=== PATIENT | male | born 1960 | race Caucasian/White ===

== ENCOUNTER 2016-06-12 12:26 | Emergency (ER) | payer BC ==
[~2016-06-12] VITALS: Ht 188 cm; Wt 127.0 kg
--- NOTE | 2016-06-12 12:23 | EMERGENCY ROOM VISIT NOTE ---
History Report prepared by Nemo: Myron Menno Under the Supervision of: Dr. Alonso Gonzalez D.O. First contact with patient: 12:12 Stated Complaint: STROKE ALERT History of Present Illness The patient is a 55 year old male who presents to the Emergency Room via Emergency Medical Services from [facility] in [place] after becoming altered at 1140, 45 minutes prior to arrival. Per EMS the patient's brought him to [facility] with complaints of a massive sudden onset headache and numbness in the right ankle and right calf. Upon arrival to the hospital the patient began to experience difficulty breathing and exhibited a right facial droop. His right pupil was blown. He then became unresponsive and completely flaccid on the right side. In transit to the emergency department at [facility] the patient became combative, but is only able to use the left side. 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 The patient was placed on 6 liters of oxygen and had a respiratory rate of 20-30. His glucose was 98. He has a history of Hypertension and Marijuana use. Source of History: EMS Onset: 45 minutes Position: other (Neuro) Quality: other (right side paralysis, facial droop ) Review of Systems See HPI for pertinent positives & negatives. A total of 10 systems reviewed and were otherwise negative. Past Medical & Surgical Medical Problems: (1) Bronchitis (2) Sciatica Surgical Problems: (1) History of tonsillectomy Family History Cancer Diabetes mellitus Heart disease Kidney disease Social History Smoking Status: Former Smoker Alcohol Use: occasionally Marital Status: Housing Status: lives with significant other Occupation Status: unemployed Current/Historical Medications Scheduled Aspirin (Aspirin Ec), 81 MG PO DAILY Lisinopril (Lisinopril), 1 TAB PO DAILY Allergies Coded Allergies: Hydrocodone (Verified Allergy, Unknown, hives, 06/12/16) Physical Exam Vital Signs Date Time Temp Pulse Resp B/P Pulse Ox O2 Delivery O2 Flow Rate FiO2 06/12/16 14:15 122 16 98/62 100 06/12/16 14:00 122 16 98/62 100 Mechanical Ventilator 100 06/12/16 13:16 117 0 100 06/12/16 13:15 143/102 06/12/16 13:11 115 99 06/12/16 13:09 147/111 06/12/16 13:06 103 4 100 06/12/16 13:01 107 18 92 06/12/16 13:00 100 06/12/16 12:56 147 16 95 06/12/16 12:51 68 35 99 06/12/16 12:49 172/103 06/12/16 12:38 60 16 119/115 92 Non-Rebreather 06/12/16 12:38 61 06/12/16 12:36 192/115 06/12/16 12:33 51 06/12/16 12:30 70 06/12/16 12:30 100 06/12/16 12:28 92 Non-Rebreather Physical Exam GENERAL: Patient arrives with a nasal trumpet in place, he is obtunded and is only moving the left arm and left leg. He is unable to answer questions and does not follow commands. EYES: The patient has a right fixed gaze. With a dilated right pupil, left pupil appears mid-sized and reactive to light. EARS, NOSE, MOUTH AND THROAT: The nose is without any evidence of any deformity. Mucous membranes are moist tongue is midline. Copious emesis in the oropharynx. NECK: The neck is nontender and supple. RESPIRATORY: Lung sounds are diminished throughout with scattered rhonchi. Respirations are shallow and ineffective. CARDIOVASCULAR: Regular rate and rhythm noted there no murmurs rubs or gallops normal S1 normal S2 GASTROINTESTINAL: The abdomen is soft. Bowel sounds are present in all quadrants. Abdomen is nontender PELVIS: The Pelvis is stable. No tenderness to palpation is noted. BACK: No midline tenderness or or step-off noted range of motion in flexion extension as well as rotation no signs of muscle spasm noted MUSCULOSKELETAL/EXTREMITIES: There is no evidence of gross deformity full range of motion is noted in the hips and shoulders SKIN: There is no obvious evidence of any rash. There are no petechiae, pallor or cyanosis noted. NEUROLOGIC: Patient is obtunded and not answering questions. Patient has a GCS score of 7. He withdraws from pain with LUE and brings the left leg into flexion at the hip. The patellar reflexes were 2+ bilaterally. No facial droop was appreciated. Medical Decision & Procedures ER Provider Diagnostic Interpretation: Radiology results as stated below per my review and radiologist interpretation: CT OF THE CERVICAL SPINE CLINICAL HISTORY: Trauma. Neck pain. COMPARISON STUDY: No previous studies for comparison. CT DOSE: TECHNIQUE: CT scan of the cervical spine was performed from the skull base to the thoracic inlet. Images are reviewed in the axial, sagittal, and coronal planes. IV contrast was not administered for this examination. FINDINGS: The visualized portions of the lung apices reveal no evidence of pneumothorax. There is dependent atelectasis. There is apical emphysema. An endotracheal tube tube is visualized. The prevertebral soft tissues are normal. No fractures or subluxations are visualized. There are multilevel degenerative changes. There is a cervical levoscoliosis which may in part be positional. There is spinal stenosis at the C5-6 level. There is right-sided foraminal narrowing the C5-6 level. IMPRESSION: No evidence of acute fracture or traumatic subluxation. Electronically signed by: Hector Tovar M.D. 06/12/2016 12:57 PM Dictated Date/Time: 06/12/2016 12:54 PM CHEST ONE VIEW PORTABLE CLINICAL HISTORY: Stroke RESPIRATORY FAILURE COMPARISON STUDY: 04/27/2015 FINDINGS: There is an endotracheal tube 49 mm above the kimberley. The heart is normal in size. There is mild pulmonary vascular congestion/fluid overload. There is no lobar consolidation. There are no pleural effusions. There is an overlying right cardiac electrode pad[ IMPRESSION: 1. Endotracheal tube 49 mm above the kimberley 2. Mild central pulmonary vascular congestion Electronically signed by: Hector Tovar M.D. 06/12/2016 1:43 PM Dictated Date/Time: 06/12/2016 1:[address] HEAD WITHOUT CONTRAST (CT) CLINICAL HISTORY: Stroke COMPARISON STUDY: No previous studies for comparison. TECHNIQUE: Axial CT of the brain is performed from the vertex to the skull base. IV contrast was not administered for this examination. CT DOSE: 2161.12 mGy.cm FINDINGS: There is a right subdural hematoma with a thickness of 17 mm. There is effacement of the auricle sulci. There is a 16 mm of right to left midline shift. No parenchymal hemorrhage is visualized. No calvarial fractures are visualized. There is no evidence of pathologic ventricular dilatation. There is mucosal thickening involving the maxillary ethmoid and frontal sinuses. IMPRESSION: Acute right-sided subdural hematoma, measuring 17 mm in thickness. There is secondary mass effect with 16 mm of right to left midline shift. Electronically signed by: Hector Tovar M.D. 06/12/2016 12:52 PM Dictated Date/Time: 06/12/2016 12:49 PM Laboratory Results 06/12/16 12:38 Red Blood Count 4.57, Mean Corpuscular Volume 92.3, Mean Corpuscular Hemoglobin 31.7, Mean Corpuscular Hemoglobin Concent 34.4, Mean Platelet Volume 10.3 06/12/16 12:38 Test 06/12/16 12:38 06/12/16 13:02 06/12/16 13:05 06/12/16 13:06 White Blood Count 12.44 K/uL (4.8-10.8) Red Blood Count 4.57 M/uL (4.7-6.1) Hemoglobin 14.5 g/dL (14.0-18.0) Hematocrit 42.2 % (42-52) Mean Corpuscular Volume 92.3 fL (80-100) Mean Corpuscular Hemoglobin 31.7 pg (25-34) Mean Corpuscular Hemoglobin Concent 34.4 g/dl (32-36) Platelet Count 234 K/uL (130-400) Mean Platelet Volume 10.3 fL (7.4-10.4) RDW Standard Deviation 42.8 fL (36.4-46.3) RDW Coefficient of Variation 12.7 % (11.5-14.5) Neutrophils % (Manual) 50.5 % Lymphocytes % (Manual) 34.5 % Monocytes % (Manual) 4.4 % Eosinophils % (Manual) 6.2 % Basophils % (Manual) 3.5 % (0-2) Blast Cells % 0.9 % Neutrophils # (Manual) 6.28 K/uL (1.4-6.5) Total Absolute Neutrophils 6.28 K/uL (1.4-6.5) Lymphocytes # (Manual) 4.29 K/uL (1.2-3.4) Total Absolute Lymphocytes 4.29 K/uL (1.2-3.4) Monocytes # (Manual) 0.55 K/uL (0.11-0.59) Eosinophils # (Manual) 0.77 K/uL (0-0.5) Basophils # (Manual) 0.44 K/uL (0-0.2) Blast Cells # 0.11 K/uL (0-0) Red Blood Cell Morphology Unremarkable Prothrombin Time 10.6 SECONDS (9.0-12.0) Prothromb Time International Ratio 1.0 (0.9-1.1) Activated Partial Thromboplast Time 23.1 SECONDS (21.0-31.0) Partial Thromboplastin Ratio 0.9 Est Creatinine Clear Calc Drug Dose 155.3 ml/min Estimated GFR () 119.2 Estimated GFR (Non- 102.9 BUN/Creatinine Ratio 18.2 (10-20) Calcium Level 8.6 mg/dl (8.5-10.1) Total Bilirubin 0.4 mg/dl (0.2-1) Direct Bilirubin 0.1 mg/dl (0-0.2) Aspartate Amino Transf (AST/SGOT) 42 U/L (15-37) Alanine Aminotransferase (ALT/SGPT) 45 U/L (12-78) Alkaline Phosphatase 52 U/L (45-117) Total Creatine Kinase 254 U/L (39-308) Creatine Kinase MB 4.7 ng/ml (0.5-3.6) Creatine Kinase MB Ratio 1.9 (0-3.0) Troponin I < 0.015 ng/ml (0-0.045) Total Protein 7.4 gm/dl (6.4-8.2) Albumin 4.0 gm/dl (3.4-5.0) Bedside Glucose 177 mg/dl (70-99) Urine Color YELLOW Urine Appearance CLEAR (CLEAR) Urine pH 5.0 (4.5-7.5) Urine Specific Randall 1.017 (1.000-1.030) Urine Protein TRACE (NEG) Urine Glucose (UA) TRACE (NEG) Urine Ketones 1+ (NEG) Urine Occult Blood NEG (NEG) Urine Nitrite NEG (NEG) Urine Bilirubin NEG (NEG) Urine Urobilinogen NEG (NEG) Urine Leukocyte Esterase NEG (NEG) Urine WBC (Auto) 1-5 /hpf (0-5) Urine RBC (Auto) 0-4 /hpf (0-4) Urine Hyaline Casts (Auto) 5-10 /lpf (0-5) Urine Epithelial Cells (Auto) >30 /lpf (0-5) Urine Bacteria (Auto) NEG (NEG) Urine Opiates Screen NEG (NEG) Urine Methadone, Qualitative NEG (NEG) Urine Barbiturates NEG (NEG) Urine Phencyclidine (PCP) Level NEG (NEG) Ur Amphetamine/Methamphetamine NEG (NEG) MDMA (Ecstasy) Screen NEG (NEG) Urine Benzodiazepines Screen NEG (NEG) Urine Cocaine Metabolite NEG (NEG) Urine Marijuana (THC) POS (NEG) Bedside Blood Gas pH (LAB) 7.20 (7.35-7.45) Bedside Blood Gas pCO2 (LAB) 52 mmHg (35-46) Bedside Blood Gas pO2 (LAB) 92 mmHg (80-95) Bedside Blood Gas HCO3 (LAB) 20 meq/L (19-24) Bedside Blood Gas Total CO2 22 mEq/l (24-31) Bedside Blood Gas Base Excess (LAB) -8.0 meq/L (-9-1.8) Bedside Blood Gas O2 Saturation 95.0 % (90-95) Test 06/12/16 13:09 Bedside Hemoglobin 14.6 g/dl (14.0-18.0) Bedside Hematocrit 43 % (42-52) Bedside Sodium 141 mEq/L (135-144) Bedside Potassium 3.3 mEq/L (3.3-5.0) Bedside Chloride 106 mEq/L (101-112) Bedside Total CO2 21 mEq/l (24-31) Anion Gap 19.0 mmol/L (16-25) Bedside Blood Urea Nitrogen 14 mg/dl (7-18) Bedside Creatinine 0.6 mg/dl (0.6-1.3) Bedside Glucose (other) 195 mg/dl (70-99) Bedside Lactic Acid Venous 2.47 mmol/L (0.90-1.70) Bedside Ionized Calcium (Radha) 1.15 mmol/l (1.12-1.32) Laboratory results per my review. Medications Administered Medications (Trade) Dose Ordered Sig/Kinga Route Start Time Stop Time Status Last Admin Dose Admin Sodium Chloride (Nss 1000ml) 1,000 ml @ 50 mls/hr Q20H IV 06/12/16 12:18 06/12/16 14:58 DC 06/12/16 12:18 50 MLS/HR Propofol 1 dose 1 dose STK-MED ONCE IV 06/12/16 12:56 06/12/16 12:57 DC 06/12/16 13:04 1 DOSE Nicardipine HCl/ Sodium Chloride (Cardene Iv/Nss 250ml) 250 ml @ 0 mls/hr Q0M STAT IV 06/12/16 13:05 06/12/16 13:07 DC 06/12/16 13:25 5 MLS/HR Mannitol 100 gm 100 gm NOW STAT IV 06/12/16 13:05 06/12/16 13:07 DC 06/12/16 13:23 100 GM Levetiracetam 2000 mg/Dextrose 270 ml @ 999 mls/hr ONE ONCE IV 06/12/16 13:15 06/12/16 13:31 DC 06/12/16 13:26 999 MLS/HR Desmopressin Acetate/Sodium Chloride (Ddavp Inj/Nss 50ml) 55.5 ml @ 100 mls/hr 1330 IV 06/12/16 13:30 06/12/16 14:58 DC 06/12/16 13:30 100 MLS/HR Sodium Bicarbonate (Sodium Bicarbonate 8.4% Inj) 50 ml STK-MED ONCE IV 06/12/16 13:21 06/12/16 13:22 DC 06/12/16 13:23 50 ML Propofol (Diprivan Iv Emulsion 100ml Vial) 1 dose UD STAT IV 06/12/16 13:36 06/12/16 13:37 DC 06/12/16 13:38 1 DOSE ECG Indication: altered mental status, weakness Rate (beats per minute): 150 Rhythm: other (Wide complex tachycardia) Findings: PVC (frequent) Comparison ECG Date: 04/27/2015 Change: no significant change ED Course 1218: Ordered Sodium Chloride 1000 mL @ 50 mL/hr IV. 1225: The patient was evaluated in room B1. A complete history and physical examination were performed. 1252: I discussed the case with Dr. Arik Barragan Emergency medicine. Recommended discussion with Neurology. 1256: Ordered Propofol 1 dose IV. 1303: I discussed the case with Dr. Samantha Barragan Neurology at this time. He recommended Mannitol, DDAVP, Keppra, and Nicardipine for blood pressure control. He also recommended discussing the case with [facility]. 1305: Ordered Mannitol 100 gm IV, Nicardipine HCl 250 mL @ 0 mL/hr IV. 1313: I discussed the case with Dr. Martin [facility]. He will accept the patient for transfer. 1315: Ordered Levetiracetam 270 mL @ 999 mL/hr IV. 1321: Ordered Sodium Bicarbonate 50 mL IV. 1330: [facility] has arrived for the patient at this time. 1330: Ordered Desmopressin 55.5 mL @ 100 mL/hr IV. 1336: Ordered Propofol 1 dose IV. 1343: Ordered Propofol 1 dose IV. Medical Decision Differential diagnosis: Etiologies such as metabolic, infection, hypoglycemia, electrolyte abnormalities , cardiac sources, intracerebral event, toxicologic, neurologic, as well as others were entertained. Nursing notes reviewed. Additional history is obtained from the prehospital personnel. The patient's previous electronic medical records reviewed. The patient is a 55-year-old male who presented to the emergency department for altered mental status. The patient initially was made a stroke alert. The history was not able to be obtained from the patient because of his altered mental status and acute neurologic event but according to the hospital personnel the patient went into a clinic in [place] complaining of a headache and numbness in his right foot. The patient collapsed and did not regain consciousness. The patient was found have a dilated right pupil and he was flaccid on the right upper and lower extremity. For this reason he was made a stroke alert prior to arrival. When he arrived in the emergency department he was actively vomiting and there was concern that he was not protecting his airway. This reason he was immediately intubated using rapid sequence intubation. He was then taken to the CAT scan machine and was found have a large right subdural hematoma with significant midline shift. The patient did not have any history of trauma according to his significant other but unfortunately could not ask him. The patient does have a strong history of alcohol use so it is possible he may have had a fall. This reason CT the cervical spine was also obtained but no traumatic injury was noted. The patient was referred to [place]. I initially talked to the emergency Department then the neurosurgeon at [facility]. I was then referred to the neurosurgeon at [facility] in [place]. The patient was treated with mannitol Keppra and sedation. The patient was also given DDAVP at the recommendation of the neurosurgeon in [place] because the patient takes aspirin. The patient started to have cardiac dysrhythmias on the monitor. He initially had sinus bradycardia but then started having an irregular wide complex tachycardia. The patient doesn 't cardiac catheterization at our facility which showed no acute disease so I feel this dysrhythmia is likely neurogenic in origin. The patient was also found have an abnormal chest x-ray. I'm unsure if this represents an neurogenic pulmonary edema or if it represents aspiration. The patient was transferred via helicopter to [facility]. Initially blood pressure medication was ordered because of his significantly elevated blood pressure but his blood pressure started to come down on its own I do feel this is an ominous sign however the blood pressure medication was held for this reason. I discussed the patient's laboratory and radiographic studies with his significant other. She is aware of the severity of his illness at this time. Consults Time Called: 1245 Consulting Physician: Dr. Arik Barragan Emergency Medicine Returned Call: 1252 I discussed the case with Dr. Arik Barragan Emergency medicine. Recommended discussion with Neurology. Additional Consults: Time Called: 1258 Consulted Physician: Dr. Samantha Barragan Neurology Returned Call: 1304 Additional Comments: I discussed the case with Dr. Samantha Barragan Neurology at this time. He recommended Mannitol, DDAVP, Keppra, and Nicardipine for blood pressure control. He also recommended discussing the case with [facility]. Time Called: 130 Consulted Physician: Dr. Martin - [facility] Returned Call: 1385 Additional Comments: I discussed the case with Dr. Martin [facility]. He will accept the patient for transfer. Impression Primary Impression: Acute subdural hematoma Critical Care I have personally spent greater than 60 minutes of critical care time in the direct management of this patient. This includes bedside care, interpretation of diagnostic studies, and testing, discussion with consultants, patient, and family members, and other required patient management activities. This 60 minutes is in excess of all separately billable procedures. Scribe Attestation The scribe's documentation has been prepared under my direction and personally reviewed by me in its entirety. I confirm that the note above accurately reflects all work, treatment, procedures, and medical decision making performed by me. Departure Information Dispostion Transfer Acute Care Facility (Dr. Martin - [facility]) Referrals Mazin Rose D.O. 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
[~2016-06-12 12:26] MED LIST: ASPI81TA28 PO; LSN5 PO; SODIUM CHLORIDE 0.9% 1000ML 1,000 ML IV SCH
[2016-06-12] MEDS ORDERED: SUCCINYLCHOLINE CHLORIDE 20 MG/ML 10 ML VIAL IV ONE (12:27)
[2016-06-12] MEDS ORDERED: ETOMIDATE 2 MG/ML 20 ML VIAL IV ONE (12:27)
[2016-06-12 12:28] VITALS: O2SAT 92
--- NOTE | 2016-06-12 12:54 | DIAGNOSTIC IMAGING REPORT ---
CT HEAD WITHOUT CONTRAST (CT) CLINICAL HISTORY: Stroke COMPARISON STUDY: No previous studies for comparison. TECHNIQUE: Axial CT of the brain is performed from the vertex to the skull base. IV contrast was not administered for this examination. CT DOSE: 2161.12 mGy.cm FINDINGS: There is a right subdural hematoma with a thickness of 17 mm. There is effacement of the auricle sulci. There is a 16 mm of right to left midline shift. No parenchymal hemorrhage is visualized. No calvarial fractures are visualized. There is no evidence of pathologic ventricular dilatation. There is mucosal thickening involving the maxillary ethmoid and frontal sinuses. IMPRESSION: Acute right-sided subdural hematoma, measuring 17 mm in thickness. There is secondary mass effect with 16 mm of right to left midline shift. Electronically signed by: Hector Tovar M.D. 06/12/2016 12:52 PM Dictated Date/Time: 06/12/2016 12:49 PM
[2016-06-12] MEDS ORDERED: PROPOFOL IV EMULSION 10 MG/ML 100 ML VIAL IV ONE ×2 (12:56→13:42)
--- NOTE | 2016-06-12 12:58 | DIAGNOSTIC IMAGING REPORT ---
CT OF THE CERVICAL SPINE CLINICAL HISTORY: Trauma. Neck pain. COMPARISON STUDY: No previous studies for comparison. CT DOSE: TECHNIQUE: CT scan of the cervical spine was performed from the skull base to the thoracic inlet. Images are reviewed in the axial, sagittal, and coronal planes. IV contrast was not administered for this examination. FINDINGS: The visualized portions of the lung apices reveal no evidence of pneumothorax. There is dependent atelectasis. There is apical emphysema. An endotracheal tube tube is visualized. The prevertebral soft tissues are normal. No fractures or subluxations are visualized. There are multilevel degenerative changes. There is a cervical levoscoliosis which may in part be positional. There is spinal stenosis at the C5-6 level. There is right-sided foraminal narrowing the C5-6 level. IMPRESSION: No evidence of acute fracture or traumatic subluxation. Electronically signed by: Hector Tovar M.D. 06/12/2016 12:57 PM Dictated Date/Time: 06/12/2016 12:54 PM
[2016-06-12 13:01] VITALS: Ht 188 cm; Wt 127.0 kg
[2016-06-12] MEDS ORDERED: LISI-461 PO (13:03)
[2016-06-12] MEDS ORDERED: NiCARDipine IV 25 MG in SODIUM CHLORIDE 0.9% 250ML 240 ML IV STA (13:05)
[2016-06-12] MEDS ORDERED: MANNITOL 25% 50 ML VIAL IV STA (13:05)
[2016-06-12 13:06] LABS: PARTIAL THROMBOPLASTIN RATIO 0.9; PROTHROMBIN TIME (PATIENT) 10.6 SECONDS (9.0-12.0)
[2016-06-12 13:07] LABS: HEMATOCRIT 42.2 % (42-52); MEAN CELL VOLUME 92.3 fL (80-100); MEAN CORPUSCULAR HEMOGLOBIN 31.7 pg (25-34); MEAN CORPUSCULAR HGB CONC 34.4 g/dl (32-36); MEAN PLATELET VOLUME 10.3 fL (7.4-10.4); PLATELET COUNT 234 K/uL (130-400); RED BLOOD COUNT 4.57 M/uL (4.7-6.1); WHITE BLOOD COUNT 12.44 K/uL (4.8-10.8)
[2016-06-12] MEDS ORDERED: DESMOPRESSIN ACETATE 0.1 MG TAB PO STA (13:07)
[2016-06-12 13:13] LABS: ALT/SGPT 45 U/L (12-78); BLOOD UREA NITROGEN 14 mg/dl (7-18); BUN/CREATININE RATIO 18.2 (10-20); CALCIUM 8.6 mg/dl (8.5-10.1); CARBON DIOXIDE 22 mmol/L (21-32); CHLORIDE 105 mmol/L (98-107); CREATININE 0.77 mg/dl (0.60-1.40); GLUCOSE 148 mg/dl (70-99); POTASSIUM 3.5 mmol/L (3.5-5.1); SODIUM 142 mmol/L (136-145)
[2016-06-12] MEDS ORDERED: LEVETIRACETAM IV 2,000 MG in DEXTROSE 5% 250ML 250 ML IV ONE (13:15)
[2016-06-12 13:17] LABS: ALKALINE PHOSPHATASE 52 U/L (45-117); AST/SGOT 42 U/L (15-37); CKMB/CK RATIO 1.9 (0-3.0)
[2016-06-12 13:21] LABS: ISTAT ARTERIAL BLOOD GAS HCO3 20 meq/L (19-24); ISTAT ARTERIAL BLOOD GAS PCO2 52 mmHg (35-46); ISTAT ARTERIAL BLOOD GAS PO2 92 mmHg (80-95); ISTAT CARBON DIOXIDE 22 mEq/l (24-31); ISTAT HEMATOCRIT 42 % (42-52); ISTAT HEMOGLOBIN 14.3 g/dl (14.0-18.0); ISTAT SODIUM 140 mEq/L (135-144)
[2016-06-12] MEDS ORDERED: SODIUM BICARB 8.4% INJ 50 MEQ/50 ML SYR IV ONE (13:21)
[2016-06-12 13:23] LABS: ISTAT CREATININE 0.6 mg/dl (0.6-1.3); ISTAT HEMOGLOBIN 14.6 g/dl (14.0-18.0); ISTAT IONIZED CALCIUM 1.15 mmol/l (1.12-1.32)
[2016-06-12] MEDS ORDERED: SODIUM CHLORIDE 0.9% IV SCH (13:30)
[2016-06-12] MEDS ORDERED: DESMOPRESSIN ACETATE IV SCH (13:30)
[2016-06-12 13:34] LABS: URINE APPEARANCE CLEAR (CLEAR); URINE BILIRUBIN NEG (NEG); URINE COLOR YELLOW; URINE EPITHELIAL CELL AUTO >30 /lpf (0-5); URINE NITRITE NEG (NEG); URINE SPECIFIC GRAVITY 1.017 (1.000-1.030); UROBILINOGEN NEG (NEG)
[2016-06-12 13:36] LABS: MANUAL MICROSCOPIC REQUIRED? NO; REVIEW REQ? NO
[2016-06-12] MEDS ORDERED: PROPOFOL IV EMULSION 10 MG/ML 100 ML VIAL IV STA (13:36)
--- NOTE | 2016-06-12 13:45 | DIAGNOSTIC IMAGING REPORT ---
CHEST ONE VIEW PORTABLE CLINICAL HISTORY: Stroke RESPIRATORY FAILURE COMPARISON STUDY: 04/27/2015 FINDINGS: There is an endotracheal tube 49 mm above the kimberley. The heart is normal in size. There is mild pulmonary vascular congestion/fluid overload. There is no lobar consolidation. There are no pleural effusions. There is an overlying right cardiac electrode pad[ IMPRESSION: 1. Endotracheal tube 49 mm above the kimberley 2. Mild central pulmonary vascular congestion Electronically signed by: Hector Tovar M.D. 06/12/2016 1:43 PM Dictated Date/Time: 06/12/2016 1:42 PM
[2016-06-12 14:09] LABS: BENZODIAZEPINE, URINE NEG (NEG); COCAINE,URINE NEG (NEG); PHENCYCLIDINE, URINE NEG (NEG)
[2016-06-12 14:11] LABS: BASO ABS # 0.44 K/uL (0-0.2); BASOPHIL % 3.5 % (0-2); EOSINOPHIL % 6.2 %; LYMPH ABS # 4.29 K/uL (1.2-3.4); LYMPHOCYTE % 34.5 %; NEUTROPHILS % 50.5 %
[2016-06-12 14:15] VITALS: BP 98/62; PULSE 122; O2SAT 100
[2016-06-13 14:16] LABS: COMPLETE YES
== END 2016-06-12 14:15 | disposition short-term general hospital (02) ==
LOC: C.EDB 12:26
DX: I62.01 Nontraumatic acute subdural hemorrhage (principal); R20.0 Anesthesia of skin; R51 Headache; Z87.891 Personal history of nicotine dependence; I10 Essential (primary) hypertension

== ENCOUNTER → 2016-07-06 | Outpatient (CLI) | payer BC ==
[~2016-07-06] MED LIST changes: +LISI-461 PO; -LSN5 PO; -SODIUM CHLORIDE 0.9% 1000ML 1,000 ML IV SCH
[2016-07-06 12:36] LABS: BASO % 0.3 %; BASO ABS # 0.02 K/uL (0-0.2); COMPLETE YES; EOS % 4.2 %; HEMATOCRIT 40.1 % (42-52); IG% 0.3 %; LYMPH % 29.2 %; LYMPH ABS # 1.76 K/uL (1.2-3.4); MEAN CELL VOLUME 94.8 fL (80-100); MEAN CORPUSCULAR HEMOGLOBIN 30.7 pg (25-34); MEAN CORPUSCULAR HGB CONC 32.4 g/dl (32-36); MEAN PLATELET VOLUME 10.6 fL (7.4-10.4); MONO % 8.5 %; NEUT % 57.5 %; PLATELET COUNT 251 K/uL (130-400); RED BLOOD COUNT 4.23 M/uL (4.7-6.1); WHITE BLOOD COUNT 6.02 K/uL (4.8-10.8)
[2016-07-06 13:04] LABS: PROLACTIN 4.86 ng/mL
[2016-07-06 13:08] LABS: ALT/SGPT 33 U/L (12-78); BLOOD UREA NITROGEN 11 mg/dl (7-18); BUN/CREATININE RATIO 17.1 (10-20); CARBON DIOXIDE 24 mmol/L (21-32); CHLORIDE 107 mmol/L (98-107); CHOLESTEROL 185 mg/dl (0-200); CREATININE 0.66 mg/dl (0.60-1.40); GLUCOSE 93 mg/dl (70-99); POTASSIUM 3.9 mmol/L (3.5-5.1); SODIUM 140 mmol/L (136-145); TRIGLYCERIDES 81 mg/dl (0-150); VERY LOW DENSITY LIPOPROT CALC 16 mg/dl
[2016-07-06 13:10] LABS: CALCIUM 9.4 mg/dl (8.5-10.1)
[2016-07-06 13:18] LABS: ALB/GLOB RATIO 1.1 (0.9-2); ALKALINE PHOSPHATASE 62 U/L (45-117); AST/SGOT 21 U/L (15-37); CHOLESTEROL/HDL RATIO 3.2; HDL CHOLESTEROL 58 mg/dl; LDL CHOLESTEROL CALCULATED 111 mg/dl
--- NOTE | 2016-07-12 14:09 | CODING QUERY MEDICAL NECESSITY ---
CQSUPPORTING DIAGNOSIS NEEDED A supporting diagnosis is required for the test/procedure performed on this patient in order for us to be reimbursed by the patient's insurance. Please provide a supporting diagnosis for the following test/procedure listed below next to the test name along with your signature. *If there is no additional diagnosis for this patient that would support the following test/procedure please document that below next to the test/procedure. Test(s)/Procedure(s) that require a supporting diagnosis: DOS 07/06/16 BLOOD COUNT PROSTATE SPECIFIC Provider Signature: Date: Thank you Nilda Brown Health Information Management Once completed, please kindly fax back to [phone] For questions please call [phone]
== END | disposition home or self-care (01) ==
LOC: C.LABPBG 08:23
PROVIDERS: ATTEND Neuromusculoskeletal Medicine & OMM
DX: Z00.00 Encounter for general adult medical examination without abnormal findings (principal); N62 Hypertrophy of breast; Z12.5 Encounter for screening for malignant neoplasm of prostate

== ENCOUNTER → 2016-09-19 | Outpatient (CLI) | payer BC ==
[2016-09-19 18:54] LABS: URINE APPEARANCE CLEAR (CLEAR); URINE BILIRUBIN NEG (NEG); URINE COLOR DK YELLOW; URINE NITRITE NEG (NEG); URINE SPECIFIC GRAVITY 1.022 (1.000-1.030); UROBILINOGEN NEG (NEG)
[2016-09-19 18:57] LABS: MANUAL MICROSCOPIC REQUIRED? NO; REVIEW REQ? NO
== END | disposition home or self-care (01) ==
LOC: C.LAB 17:59
PROVIDERS: ATTEND Physician Assistant
DX: R82.99 Other abnormal findings in urine (principal)

== ENCOUNTER → 2016-11-20 | Outpatient (CLI) | payer BC ==
[2016-11-20 15:08] LABS: ALT/SGPT 28 U/L (12-78); AST/SGOT 16 U/L (15-37); BLOOD UREA NITROGEN 14 mg/dl (7-18); BUN/CREATININE RATIO 20.1 (10-20); CALCIUM 9.2 mg/dl (8.5-10.1); CARBON DIOXIDE 25 mmol/L (21-32); CHLORIDE 106 mmol/L (98-107); GLUCOSE 88 mg/dl (70-99); POTASSIUM 3.9 mmol/L (3.5-5.1); SODIUM 139 mmol/L (136-145)
[2016-11-20 15:10] LABS: ALB/GLOB RATIO 1.2 (0.9-2); ALKALINE PHOSPHATASE 62 U/L (45-117)
== END | disposition home or self-care (01) ==
LOC: C.LAB 14:08
PROVIDERS: ATTEND Internal Medicine Cardiovascular Disease
DX: Z00.00 Encounter for general adult medical examination without abnormal findings (principal); I10 Essential (primary) hypertension; I48.91 Unspecified atrial fibrillation

== ENCOUNTER 2024-09-29 10:56 | Inpatient (IN) ==
--- NOTE | 2024-09-29 11:16 | Emergency Department Note ---
Impression & Plan Respiratory failure, Acute exacerbation of chronic obstructive pulmonary disease, Hypokalemia, Head injury, Fall, Acute non-ST elevation myocardial infarction (NSTEMI), Acute hyponatremia ED Provider Note NAME: TROY HART AGE: 64 SEX: M : 1960 ARRIVES VIA: Ambulance INFORMANT: Patient, EMS ED PROVIDER(S): Alonso Gonzalez DO CHIEF COMPLAINT: Shortness of breath HPI: The patient is a 64-year-old male who presented to the emergency department for an evaluation of difficulty breathing. The patient does have a history of COPD. He was found to be in severe respiratory distress by the prehospital personnel. He was placed on CPAP. The patient himself denies having any chest pain or difficulty walking. The patient denies having any abdominal pain or back pain. Reportedly the patient did fall last evening. This was told to the prehospital personnel by the patient's . The patient does have a small abrasion on his forehead. ROS: See above HPI for pertinent positives & negatives. A total of 10 systems reviewed and were otherwise negative. PAST MEDICAL HISTORY: See Below PAST SURGICAL HISTORY: See Below FAMILY HISTORY: See Below SOCIAL HISTORY: See Below HOME MEDICATIONS: See Below ALLERGIES: See Below VITALS: See Below PHYSICAL EXAMINATION: GENERAL: The patient is awake and alert. He is very anxious and appears to be having respiratory distress. EYES: The conjunctivae are clear. The pupils are round and reactive. EARS, NOSE, MOUTH AND THROAT: The nose is without any evidence of any deformity. NECK: The neck is nontender and supple. RESPIRATORY: Diminished breath sounds are noted throughout. There was expiratory wheezing in both upper lung urrutia. There is severe tachypnea as well as conversational dyspnea. CARDIOVASCULAR: Tachycardic and irregular heart sounds were noted to auscultation. There is no definite murmur. GASTROINTESTINAL: The abdomen is soft. Abdomen is nontender. MUSCULOSKELETAL/EXTREMITIES: There is no deformity or shortening of either lower or upper extremity. There was tenderness to palpation over the right hip with pain with range of motion testing. SKIN: Skin is warm and dry. Pedal edema was noted bilaterally. NEUROLOGIC: Patient is awake alert and oriented x3. MEDICAL DECISION MAKING: The patient is a 64-year-old male who presented to the emergency department with respiratory distress. He was placed on CPAP prior to arrival. He has a history of COPD. There was also reported fall by family yesterday. I discussed the patient's laboratory and radiographic studies with him and his family. The patient was continued on BiPAP. He was given an hour-long DuoNeb as well as steroids in the emergency department. He was also treated with IV antibiotics and IV fluids for presumed pneumonia noted on chest x-ray. The patient was reevaluated multiple times. He was also treated with multiple potassium replacement riders. Ultimate the patient's symptoms did slowly improve. I discussed his condition with the on-call [facility] hospitalist as well as the on-call mechanist. Triage Nursing notes reviewed. Prior medical records reviewed Vital Signs: reviewed and remarkable for tachycardia and hypotension. Differential diagnosis: RSV, influenza, foreign body, viral syndrome, strep pharyngitis, tonsillitis, mononucleosis, peritonsillar abscess, otitis media, sinusitis, meningitis, encephalitis, bronchitis, pneumonia, as well as other pathologies. ER treatment provided: See below Diagnostics interpreted by me: ECG: EKG was obtained in the emergency department. My interpretation is sinus tachycardia at 161 bpm. PVCs were noted. Diffuse ST abnormalities were also appreciated. QTc was 445 ms. Cardiac Monitoring: An order was placed for continuous cardiac monitoring. The monitor shows a rate of 133 bpm with sinus tachycardia. Laboratory studies: As stated above and show below. Imaging studies: See below. Radiographic imaging was reviewed by myself Consultation(s): I discussed this case with Dr Younger who is on-call for the [facility] hospitalist group. I discussed this case with Dr. Ross who is on-call for the ICU. ED COURSE: Procedures: none Critical Care: I have personally spent greater than 45 minutes of critical care time in the direct management of this patient. This includes bedside care, interpretation of diagnostic studies, and testing, discussion with consultants, patient, and family members, and other required patient management activities. This 45 minutes is in excess of all separately billable procedures. Past Med/Surg History Problem List (Updated 09/29/24 @ 16:38 by Zeyad Ross MD) Severe sepsis with septic shock Lactic acidosis Acute hypoxemic respiratory failure Pleural effusion Pneumonia Acute hyponatremia (Acute) Acute non-ST elevation myocardial infarction (NSTEMI) (Acute) Fall (Acute) Head injury (Acute) Hypokalemia (Acute) Acute exacerbation of chronic obstructive pulmonary disease (Acute) Respiratory failure (Acute) Elevated LFTs Anemia COPD (chronic obstructive pulmonary disease) with emphysema KIRBY (dyspnea on exertion) History of tobacco abuse Lower extremity edema Hypertension Medical History Acute subdural hematoma Sciatica Surgical History S/P brain surgery S/P wisdom tooth extraction Family History Mother Breast cancer Myocardial infarction Ovarian cancer Father Hodgkin lymphoma Denies family history of Prostate cancer Colorectal cancer Social History Smoking Status: Former smoker Tobacco Type: Cigarettes Age Started Using Tobacco: 17; Age Quit Using Tobacco: 52; packs per day: 1; Second Hand Exposure: No; Do You Dip or Chew Tobacco: No; Hx Alcohol Use: Yes Alcohol type: beer Hx Substance Use: Yes Prescribed Medications: Marijuana Last Used Substance: Unknown Substance Use Type Other:: Patient has medical marijuana card Preferred Language: Honduran Communication Ability: Effective Visual Impairment: No Limitations Hearing Ability: Normal Director Internal Communications Required: No Beliefs That Will Affect Care: None marital status: Current Living Situation: Spouse current occupational status: unemployed How many Children do You have: 1 Feels Safe at Home: Yes Childhood Exposure to Second-Hand Smoke: Yes Diet: regular Diet Comment: Regular caffeine: Yes during the past year weight has: remained stable Dental Care, Regularly: No Physical Activity Frequency: 3-4 Times per Week Seatbelt Use: sometimes Sunscreen Use: No Assistive Devices: None Allergies Allergies Allergy/AdvReac Type Severity Reaction Status Date / Time hydrocodone Allergy Unknown hives Verified 12/26/22 16:54 Home Meds Home Medications Medication Instructions Recorded Confirmed clobetasol 0.025 % topical cream 1 applic topical DAILY PRN Other 12/26/22 09/29/24 Previous Rx's Medication Instructions Recorded nebulizer accessories #1 ea 06/09/22 nebulizers #1 ea 06/09/22 albuterol sulfate 2.5 mg/3 mL 2.5 mg (3 mL) inhalation QID PRN 06/10/22 (0.083 %) solution for nebulization shortness of breath or wheezing #180 mL ipratropium bromide 0.02 % 2.5 ml inhalation QID PRN 06/28/22 solution for inhalation shortness of breath or wheezing #150 mL albuterol sulfate 90 mcg/actuation 2 puff inhalation Q6H PRN 02/01/23 aerosol inhaler shortness of breath or wheezing #18 grams fluticasone fur. 100 mcg-umeclid 1 inh inhalation DAILY #28 ea 01/24/24 62.5 mcg-vilant 25 mcg inhalat.powder (Trelegy Ellipta) losartan 100 mg tablet 100 mg PO DAILY #14 tabs 01/24/24 Results & Data (ED) Vital Signs Vital Signs - 24 hr 09/29/24 11:00 09/29/24 11:00 09/29/24 11:09 Temperature 36.7 C 36.7 C Temperature Source Axillary Axillary Pulse Rate 165 H Pulse Rate [Right Finger] Pulse Rate from SpO2 Sensor Respiratory Rate 34 H Respiratory Effort / Characteristics Labored Accessory Muscle Use Labored Short of Breath Respiratory Depth Respiratory Pattern Blood Pressure 116/89 Blood Pressure Mean 98 Pulse Oximetry 96 Oxygen Delivery Method BiPAP Fraction of Inspired Oxygen Sepsis Recent Fever Within 48 Hours No Sepsis New/Unexplained Change in Mental Status No Sepsis Action Taken by Nursing No Action Required 09/29/24 11:17 09/29/24 11:18 09/29/24 11:19 Temperature Temperature Source Pulse Rate 170 H 162 H Pulse Rate [Right Finger] 170 H Pulse Rate from SpO2 Sensor 115 H Respiratory Rate 32 H 32 H 32 H Respiratory Effort / Characteristics Spontaneous Labored Spontaneous Labored Respiratory Depth Deep Respiratory Pattern Tachypnea Blood Pressure Blood Pressure Mean Pulse Oximetry 97 97 97 Oxygen Delivery Method BiPAP Fraction of Inspired Oxygen 70 70 Sepsis Recent Fever Within 48 Hours Sepsis New/Unexplained Change in Mental Status Sepsis Action Taken by Nursing 09/29/24 11:27 09/29/24 11:30 09/29/24 11:30 Temperature Temperature Source Pulse Rate 158 H 164 H 163 H Pulse Rate [Right Finger] Pulse Rate from SpO2 Sensor 141 H 131 H Respiratory Rate 32 H 32 H Respiratory Effort / Characteristics Respiratory Depth Respiratory Pattern Blood Pressure Blood Pressure Mean Pulse Oximetry 98 96 Oxygen Delivery Method Fraction of Inspired Oxygen Sepsis Recent Fever Within 48 Hours Sepsis New/Unexplained Change in Mental Status Sepsis Action Taken by Nursing 09/29/24 11:43 09/29/24 11:45 09/29/24 12:00 Temperature 36.7 C Temperature Source Axillary Pulse Rate 159 H Pulse Rate [Right Finger] 149 H Pulse Rate from SpO2 Sensor 144 H Respiratory Rate 35 H 30 H Respiratory Effort / Characteristics Respiratory Depth Respiratory Pattern Blood Pressure Blood Pressure Mean Pulse Oximetry 97 97 Oxygen Delivery Method BiPAP Fraction of Inspired Oxygen Sepsis Recent Fever Within 48 Hours Sepsis New/Unexplained Change in Mental Status Sepsis Action Taken by Nursing 09/29/24 12:00 09/29/24 12:01 09/29/24 12:15 Temperature Temperature Source Pulse Rate 159 H 159 H Pulse Rate [Right Finger] Pulse Rate from SpO2 Sensor 114 H 138 H Respiratory Rate 34 H 28 H Respiratory Effort / Characteristics Respiratory Depth Respiratory Pattern Blood Pressure 101/77 Blood Pressure Mean 82 Pulse Oximetry 98 100 Oxygen Delivery Method Fraction of Inspired Oxygen Sepsis Recent Fever Within 48 Hours Sepsis New/Unexplained Change in Mental Status Sepsis Action Taken by Nursing 09/29/24 12:24 09/29/24 12:30 09/29/24 12:30 Temperature Temperature Source Pulse Rate 138 H Pulse Rate [Right Finger] Pulse Rate from SpO2 Sensor 120 H Respiratory Rate 23 Respiratory Effort / Characteristics Respiratory Depth Respiratory Pattern Blood Pressure 88/64 L 88/64 L Blood Pressure Mean 71 71 Pulse Oximetry 100 Oxygen Delivery Method Fraction of Inspired Oxygen Sepsis Recent Fever Within 48 Hours Sepsis New/Unexplained Change in Mental Status Sepsis Action Taken by Nursing 09/29/24 12:33 09/29/24 13:00 09/29/24 13:06 Temperature Temperature Source Pulse Rate 138 H Pulse Rate [Right Finger] 135 H Pulse Rate from SpO2 Sensor 125 H Respiratory Rate 32 H 29 H Respiratory Effort / Characteristics Respiratory Depth Respiratory Pattern Blood Pressure 103/75 Blood Pressure Mean 87 Pulse Oximetry 100 Oxygen Delivery Method Fraction of Inspired Oxygen Sepsis Recent Fever Within 48 Hours Sepsis New/Unexplained Change in Mental Status Sepsis Action Taken by Nursing 09/29/24 13:06 09/29/24 13:12 09/29/24 13:15 Temperature Temperature Source Pulse Rate 145 H 138 H 133 H Pulse Rate [Right Finger] Pulse Rate from SpO2 Sensor 129 H 134 H 134 H Respiratory Rate 27 H 29 H 25 H Respiratory Effort / Characteristics Respiratory Depth Respiratory Pattern Blood Pressure Blood Pressure Mean Pulse Oximetry 100 96 99 Oxygen Delivery Method Fraction of Inspired Oxygen Sepsis Recent Fever Within 48 Hours Sepsis New/Unexplained Change in Mental Status Sepsis Action Taken by Jail Medications Current Medication List: was personally reviewed by ma Laboratory Data Attestation: I reviewed the patient's lab results. 09/29/24 11:08 09/29/24 11:08 Lab Results 09/29/24 09/29/24 09/29/24 Range/Units 11:05 11:08 11:22 WBC 10.41 (4.8-10.8) K/ul RBC 4.73 (4.70-6.10) M/uL Hgb 15.2 (14.0-18.0) g/dl POC Hgb 15.6 (14.0-18.0) g/dl Hct 42.5 (42.0-52.0) % POC Hct 46 (42-52) % MCV 89.9 (80.0-100.0) fL MCH 32.1 (25.0-34.0) pg MCHC 35.8 (32.0-36.0) g/dL RDW Std Deviation 39.3 (36.4-46.3) fL RDW Coeff of Alton 11.9 (11.5-14.5) % Plt Count 121 L (130-400) K/uL MPV 10.8 (9.4-12.4) fL Immature Gran % (Auto) 1.2 % Neut % (Auto) 92.4 % Lymph % (Auto) 2.3 % Davison % (Auto) 3.2 % Eos % (Auto) 0.4 % Baso % (Auto) 0.5 % Neut # (Auto) 9.62 H (1.40-6.50) K/uL Lymph # (Auto) 0.24 L (1.20-3.40) K/uL Davison # (Auto) 0.33 (0.11-0.59) K/uL Eos # (Auto) 0.04 (0.00-0.50) K/uL Baso # (Auto) 0.05 (0.00-0.20) K/uL Immature Gran # (Auto) 0.13 (0.01-0.20) K/uL Toxic Granulation 1+ Toxic Vacuolation 1+ PT 11.9 (9.0-12.0) Seconds INR 1.1 (0.9-1.1) APTT 32 H (21-31) Seconds PTT Ratio 1.2 VBG pH 7.48 H (7.36-7.41) VBG pCO2 22 L (38-50) mmHg VBG pO2 52 mmHg VBG HCO3 16 mmol/L VBG O2 Saturation 85.8 % VBG Base Excess -5.0 mEq/L POC Sodium 124 L (135-144) mmol/L Sodium 123 L (136-145) mmol/L POC Potassium 2.3 L* (3.3-5.0) mmol/L Potassium 2.3 L* (3.5-5.1) mmol/L POC Chloride 91 L (101-112) mmol/L Chloride 89 L (98-107) mmol/L Carbon Dioxide 17 L (21-32) mmol/L POC Total CO2 15 L (24-31) mmol/L Anion Gap 17 H (3-11) POC Anion Gap 22.0 (16-25) mmol/L POC BUN 16 (7-18) mg/dl BUN 17 (6-23) mg/dl Creatinine 1.16 (0.6-1.4) mg/dl POC Creatinine 1.2 (0.6-1.3) mg/dl Est Cr Clr Drug Dosing 87.1 ml/min eGFR 70.77 BUN/Creatinine Ratio 14.7 (10-20) Glucose 167 H (70-99(Fasting)) mg/dl POC Glucose (other) 167 H (70-99) mg/dl Osmolality 257 L (280-300) mOsm/kg Lactate 5.4 H* (0.4-2.0) mmol/L Calcium 7.9 L (8.6-10.3) mg/dl POC Ioniz Calcium Radha 0.86 L (1.12-1.32) mmol/l Magnesium 1.0 L (1.7-2.4) mg/dl Total Bilirubin 1.2 H (0.2-1.0) mg/dl Direct Bilirubin 0.4 H (0-0.2) mg/dl AST 86 H (13-39) U/L ALT 38 (7-52) U/L Alkaline Phosphatase 47 (34-104) U/L Troponin I High Sens 184.5 H* (0-20) pg/ml Total Protein 6.9 (6.0-8.3) gm/dl Albumin 3.4 (3.4-5.0) gm/dl Procalcitonin 4.49 H (0-0.5) ng/ml Urine Color Urine Appearance (Clear) Urine pH (4.5-7.5) Ur Specific Platinum (1.000-1.030) Urine Protein (Negative) Urine Glucose (UA) (Negative) Urine Ketones (Negative) Urine Blood (Negative) Urine Nitrite (Negative) Urine Bilirubin (Negative) Urine Urobilinogen (Negative) Ur Leukocyte Esterase (Negative) Urine WBC (Auto) (0-5) /hpf Urine RBC (Auto) (0-2) /hpf U Hyaline Cast (Auto) (0-2) /lpf U Epithel Cells (Auto) (0-2) /hpf Urine Bacteria (Auto) (None Seen) Amorphous Sediment (None Prsent) Granular Casts (None Prsent) /lpf Urine Comment Ethyl Alcohol mg/dL < 10.0 (<10.0) mg/dl 09/29/24 Range/Units 11:46 WBC (4.8-10.8) K/ul RBC (4.70-6.10) M/uL Hgb (14.0-18.0) g/dl POC Hgb (14.0-18.0) g/dl Hct (42.0-52.0) % POC Hct (42-52) % MCV (80.0-100.0) fL MCH (25.0-34.0) pg MCHC (32.0-36.0) g/dL RDW Std Deviation (36.4-46.3) fL RDW Coeff of Alton (11.5-14.5) % Plt Count (130-400) K/uL MPV (9.4-12.4) fL Immature Gran % (Auto) % Neut % (Auto) % Lymph % (Auto) % Davison % (Auto) % Eos % (Auto) % Baso % (Auto) % Neut # (Auto) (1.40-6.50) K/uL Lymph # (Auto) (1.20-3.40) K/uL Davison # (Auto) (0.11-0.59) K/uL Eos # (Auto) (0.00-0.50) K/uL Baso # (Auto) (0.00-0.20) K/uL Immature Gran # (Auto) (0.01-0.20) K/uL Toxic Granulation Toxic Vacuolation PT (9.0-12.0) Seconds INR (0.9-1.1) APTT (21-31) Seconds PTT Ratio VBG pH (7.36-7.41) VBG pCO2 (38-50) mmHg VBG pO2 mmHg VBG HCO3 mmol/L VBG O2 Saturation % VBG Base Excess mEq/L POC Sodium (135-144) mmol/L Sodium (136-145) mmol/L POC Potassium (3.3-5.0) mmol/L Potassium (3.5-5.1) mmol/L POC Chloride (101-112) mmol/L Chloride (98-107) mmol/L Carbon Dioxide (21-32) mmol/L POC Total CO2 (24-31) mmol/L Anion Gap (3-11) POC Anion Gap (16-25) mmol/L POC BUN (7-18) mg/dl BUN (6-23) mg/dl Creatinine (0.6-1.4) mg/dl POC Creatinine (0.6-1.3) mg/dl Est Cr Clr Drug Dosing ml/min eGFR BUN/Creatinine Ratio (10-20) Glucose (70-99(Fasting)) mg/dl POC Glucose (other) (70-99) mg/dl Osmolality (280-300) mOsm/kg Lactate (0.4-2.0) mmol/L Calcium (8.6-10.3) mg/dl POC Ioniz Calcium Radha (1.12-1.32) mmol/l Magnesium (1.7-2.4) mg/dl Total Bilirubin (0.2-1.0) mg/dl Direct Bilirubin (0-0.2) mg/dl AST (13-39) U/L ALT (7-52) U/L Alkaline Phosphatase (34-104) U/L Troponin I High Sens (0-20) pg/ml Total Protein (6.0-8.3) gm/dl Albumin (3.4-5.0) gm/dl Procalcitonin (0-0.5) ng/ml Urine Color Dark Yellow Urine Appearance Cloudy A (Clear) Urine pH 6.0 (4.5-7.5) Ur Specific Platinum 1.017 (1.000-1.030) Urine Protein 3+ H (Negative) Urine Glucose (UA) Trace H (Negative) Urine Ketones 1+ H (Negative) Urine Blood 3+ H (Negative) Urine Nitrite Negative (Negative) Urine Bilirubin Negative (Negative) Urine Urobilinogen Negative (Negative) Ur Leukocyte Esterase Negative (Negative) Urine WBC (Auto) 6-10 H (0-5) /hpf Urine RBC (Auto) 6-10 H (0-2) /hpf U Hyaline Cast (Auto) >20 H (0-2) /lpf U Epithel Cells (Auto) 3-5 H (0-2) /hpf Urine Bacteria (Auto) None Seen (None Seen) Amorphous Sediment Present A (None Prsent) Granular Casts Present A (None Prsent) /lpf Urine Comment Ethyl Alcohol mg/dL (<10.0) mg/dl Administered Medications Acetaminophen (Acetaminophen 500 Mg Tab) 500 mg PO Q4H PRN PRN Reason: Fever or headache Stop: 10/29/24 16:58 Last Admin: 09/29/24 17:10 Dose: 500 mg Documented By: KEYONA Enoxaparin Sodium (Enoxaparin Inj 40 Mg/0.4 Ml Syr) 40 mg SQ Q12H ANA Stop: 10/29/24 16:59 Last Admin: 09/29/24 14:55 Dose: 40 mg Documented By: KEYONA Azithromycin (Zithromax) 500 mg in 255 mls @ 127.5 mls/hr IV Q24H ANA Stop: 10/04/24 14:59 Last Admin: 09/29/24 16:01 Dose: 127.5 mls/hr Documented By: keena Vancomycin HCl 2,500 mg/ (Sodium Chloride) 550 mls @ 200 mls/hr IV NOW STA Stop: 09/29/24 17:48 Last Admin: 09/29/24 15:25 Dose: 200 mls/hr Documented By: keena Methylprednisolone 40 mg/ (Syringe) 0.64 mls @ 1.5 mls/min IV Q6H ANA Stop: 10/29/24 15:59 Last Admin: 09/29/24 15:24 Dose: 1.5 mls/min Documented By: keena Lactated Ringer's (Lr) 1,000 mls @ 999 mls/hr IV .Q1H1M ONE Stop: 09/29/24 17:45 Last Admin: 09/29/24 17:10 Dose: 999 mls/hr Documented By: KEYONA Miscellaneous (Icu Protocol For Hyperglycemia) 1 each N/A ACHS ANA Stop: 10/01/24 16:29 Last Admin: 09/29/24 14:52 Dose: Not Given Documented By: KEYONA Discontinued Medications Albuterol (Albut/Ipratrop 3mg/0.5mg Neb 3 Ml Vial) 12 ml NEB ONE ONE; Protocol Stop: 09/29/24 10:59 Last Admin: 09/29/24 11:17 Dose: 12 ml Documented By: JESS Potassium Chloride (K Sergio / Wtr) 10 meq in 100 mls @ 100 mls/hr IV Q1H ANA Stop: 09/29/24 13:14 Last Infusion: 09/29/24 14:50 Dose: Infused Documented By: Admin: 09/29/24 12:15 Dose: 100 mls/hr Documented By: Infusion: 09/29/24 12:15 Dose: Infused Documented By: Admin: 09/29/24 11:26 Dose: 100 mls/hr Documented By: NADEEM Ceftriaxone Sodium (Rocephin) 2,000 mg in 50 mls @ 100 mls/hr IV NOW STA Stop: 09/29/24 11:46 Last Infusion: 09/29/24 12:05 Dose: Infused Documented By: Admin: 09/29/24 11:26 Dose: 100 mls/hr Documented By: NADEEM Sodium Chloride (Nss) 1,000 mls @ 999 mls/hr IV .Q1H1M ONE Stop: 09/29/24 12:37 Last Infusion: 09/29/24 12:54 Dose: Infused Documented By: Admin: 09/29/24 11:44 Dose: 999 mls/hr Documented By: NADEEM Sodium Chloride (Nss) 1,000 mls @ 999 mls/hr IV .Q1H1M ONE Stop: 09/29/24 12:46 Last Infusion: 09/29/24 13:06 Dose: Infused Documented By: Admin: 09/29/24 11:53 Dose: 999 mls/hr Documented By: NADEEM Sodium Chloride (Nss) 1,000 mls @ 999 mls/hr IV .Q1H1M ONE Stop: 09/29/24 13:24 Last Infusion: 09/29/24 14:50 Dose: Infused Documented By: Admin: 09/29/24 12:58 Dose: 999 mls/hr Documented By: NADEEM Potassium Chloride (K Sergio / Wtr) 10 meq in 100 mls @ 100 mls/hr IV Q1H ANA Stop: 09/29/24 14:29 Last Infusion: 09/29/24 15:51 Dose: Infused Documented By: Admin: 09/29/24 14:51 Dose: 100 mls/hr Documented By: Infusion: 09/29/24 14:50 Dose: Infused Documented By: Admin: 09/29/24 13:21 Dose: 100 mls/hr Documented By: NADEEM Potassium Chloride/Sodium Chloride (Normal Saline W/20 Meq Kcl) 20 meq in 1,000 mls @ 150 mls/hr IV .Q6H40M ANA Stop: 10/02/24 14:44 Last Infusion: 09/29/24 17:10 Dose: Infused Documented By: Admin: 09/29/24 14:51 Dose: 150 mls/hr Documented By: KEYONA Ioversol (Optiray 320 125ml) 119 ml IV ONCE ONE Stop: 09/29/24 12:44 Last Admin: 09/29/24 12:44 Dose: 119 ml Documented By: SAFIA Methylprednisolone (Methylprednisolone 125 Mg/2 Ml Vial) 125 mg IV NOW STA Stop: 09/29/24 10:59 Last Admin: 09/29/24 11:26 Dose: 125 mg Documented By: NADEEM Morphine Sulfate (Morphine Sulfate 4 Mg/Ml 1 Ml Carp\Vial) 4 mg IV NOW STA Stop: 09/29/24 11:49 Last Admin: 09/29/24 11:52 Dose: 4 mg Documented By: NADEEM Ondansetron HCl (Ondansetron Inj 2 Mg/Ml 2 Ml Vial) 4 mg IV NOW STA Stop: 09/29/24 11:49 Last Admin: 09/29/24 11:52 Dose: 4 mg Documented By: NADEEM Imaging Data Attestation: I personally reviewed and interpreted this imaging study as follows: My Impression: 1 view chest x-ray was obtained in the emergency department. My interpretation is right upper lobe pneumonia, final report below. Radiologist's Impression: Chest X-Ray 09/29/24 10:58 Clinical History: Sepsis Technique: 2 frontal views of the chest were obtained Findings: There is right upper lobe and right middle lobe alveolar consolidation. The heart size is within normal limits. No pleural effusion or pneumothorax is seen. There is no definite pulmonary nodule. No fracture is noted. No foreign body is seen Impression: Right lung pneumonia ACT 112: Positive. There are findings on this exam that require communication between the performing entity and the patient following Patient Test Result Information Act [place] ACT 112) guidelines. Electronically signed by Hiram San 09-29-2024 11:[address] 09/29/24 11:02 Clinical history: Fall Technique: Axial computed tomography images were obtained of the cervical spine without intravenous contrast. Sagittal and coronal reconstructions were obtained Comparison is made to the prior CT dated 06/12/2016 Findings: No fracture is identified. No listhesis is seen. No focal osseous lesion is evident. 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 There is no spinal stenosis. The neural foramen are patent At C3-4, there is mild spinal stenosis due to a disc bulge and a right paracentral disc protrusion. There is mild bilateral neural foramen narrowing At C4-5, there is mild spinal stenosis due to a disc bulge and a suspected central disc protrusion. There is mild right neural foramen narrowing At C5-6, there is spinal stenosis due to a disc bulge and a right paracentral disc osteophyte protrusion. There is right neural foramen narrowing that may affect the right C6 nerve root At C6-7, there is spinal stenosis due to a disc bulge and a left paracentral disc protrusion. There is mild left neural foramen narrowing At C7-T1, there is a disc bulge without spinal stenosis. The neural foramen are patent The lung apices appear clear. The visualized soft tissues of the neck appear unremarkable. No foreign body is seen Impression: 1. No definite cervical spine fracture 2. Spinal stenosis from C3-4 through C6-7 3. Right C5-6 neural foramen narrowing that may affect the right C6 nerve root. Less severe neural foramen narrowing is seen at other levels Electronically signed by Hiram San 09-29-2024 13:[address] 09/29/24 11:02 Clinical History: Fall Technique: Axial computed tomography images were obtained of the brain from the vertex to the skull base without intravenous contrast. Comparison is made to the prior CT dated 06/12/2016 Findings: There is no sign of intracranial hemorrhage. There is a low attenuation area in the right cerebellar hemisphere that could be due to a subacute or old infarct. No midline shift or other form of herniation is identified. There is no hydrocephalus. There is a new right frontoparietal craniotomy defect No obvious mass lesion is seen on this noncontrast examination. The visualized portions of the orbits and paranasal sinuses appear unremarkable. 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 MRI with diffusion-weighted images could be considered for further evaluation ACT 112: Positive. There are findings on this exam that require communication between the performing entity and the patient following Patient Test Result Information Act [place] ACT 112) guidelines. Electronically signed by Hiram San 09-29-2024 13:11 PM Pelvis X-Ray 09/29/24 11:02 Clinical History: Sepsis One view of the pelvis is submitted for review. Findings: No fracture or dislocation is seen. No significant arthritic changes are noted. No other osseous abnormality is identified. There are no radiopaque foreign bodies. Vascular calcifications are present Impression: Unremarkable pelvic radiograph Electronically signed by Hiram San 09-29-2024 11:28 AM Chest CTA 09/29/24 12:28 Clinical history: Shortness of breath Technique: Axial computed tomography images were obtained of the chest after the administration of intravenous contrast according to the CT angiogram protocol Comparison is made to the prior CT dated 02/25/2024 Findings: There is no definite sign of pulmonary embolism. There is alveolar consolidation in the right upper lobe and right middle lobe, consistent with pneumonia. There is mild emphysema. There is mild subsegmental atelectasis in both lower lobes. There is no left pleural effusion or pneumothorax. There is a small right pleural effusion. No endobronchial lesion is seen There are mildly enlarged mediastinal lymph nodes, measuring up to 1.5 cm in short axis. The thoracic aorta appears unremarkable with no sign of aneurysm or dissection. There is no pericardial effusion. There is coronary atherosclerosis The visualized upper abdomen appears unremarkable. No fracture is seen. No focal osseous lesion is evident Impression: 1. No definite sign of pulmonary embolism 2. Right upper lobe and right middle lobe pneumonia 3. Small right pleural effusion 4. Mild mediastinal adenopathy, which may be related to the pneumonia ACT 112: Positive. There are findings on this exam that require communication between the performing entity and the patient following Patient Test Result Information Act [place] ACT 112) guidelines. Electronically signed by Hiram San 09-29-2024 13:45 PM Discharge Plan Visit Data Chief Complaint: Respiratory Distress Stated Complaint: RESP. DISTRESS ED Provider: Alonso Gonzalez Discharge Problem: Respiratory failure, Acute exacerbation of chronic obstructive pulmonary disease, Hypokalemia, Head injury, Fall, Acute non-ST elevation myocardial infarction (NSTEMI), Acute hyponatremia Patient Disposition: Admitted As Inpatient Condition: Critical Discharge Instructions Interventions: ED Discharge Assessment Last Done: 09/29/24 14:13
[2024-09-29] MEDS: ALBUT/IPRATROP 3MG/0.5MG NEB 3 ML VIAL NEB ONE (11:17)
[2024-09-29 11:23] LABS: Base Excess VBG -5.0 mEq/L; HCO3 VBG 16 mmol/L; Oxygen Saturation VBG 85.8 %; PCO2 VBG 22 mmHg (38-50); PO2 VBG 52 mmHg; pH VBG 7.48 (7.36-7.41)
[2024-09-29] MEDS: cefTRIAXone SODIUM 2,000 MG/50 ML BAG IV STA (11:26)
[2024-09-29] MEDS: POTASSIUM CHLORIDE / WTR 10 MEQ/100 ML PLCT IV SCH ×3 (11:26→18:04)
--- NOTE | 2024-09-29 11:27 | XRay Report ---
Clinical History: Sepsis Technique: 2 frontal views of the chest were obtained Findings: There is right upper lobe and right middle lobe alveolar consolidation. The heart size is within normal limits. No pleural effusion or pneumothorax is seen. There is no definite pulmonary nodule. No fracture is noted. No foreign body is seen Impression: Right lung pneumonia ACT 112: Positive. There are findings on this exam that require communication between the performing entity and the patient following Patient Test Result Information Act [place] ACT 112) guidelines. Electronically signed by Hiram San 09-29-2024 11:27 AM
--- NOTE | 2024-09-29 11:28 | XRay Report ---
Clinical History: Sepsis One view of the pelvis is submitted for review. Findings: No fracture or dislocation is seen. No significant arthritic changes are noted. No other osseous abnormality is identified. There are no radiopaque foreign bodies. Vascular calcifications are present Impression: Unremarkable pelvic radiograph Electronically signed by Hiram aSn 09-29-2024 11:28 AM
[2024-09-29] MEDS: SODIUM CHLORIDE 0.9% 1,000 ML IV ONE ×3 (11:44→12:58)
[2024-09-29 11:48] LABS: Hematocrit (blood only) 42.5 % (42.0-52.0); Hemoglobin 15.2 g/dl (14.0-18.0); Mean Corpuscular Hemoglobin 32.1 pg (25.0-34.0); Mean Corpuscular Volume 89.9 fL (80.0-100.0); Platelet Count 121 K/uL (130-400); RDW Standard Deviation 39.3 fL (36.4-46.3); Red Blood Count 4.73 M/uL (4.70-6.10); White Blood Count 10.41 K/ul (4.8-10.8)
[2024-09-29] MEDS: ONDANSETRON INJ 2 MG/ML 2 ML VIAL IV STA (11:52)
[2024-09-29] MEDS: MoRPHine SULFATE 4 MG/ML 1 ML CARP\\VIAL IV STA (11:52)
[2024-09-29 11:55] LABS: INR 1.1 (0.9-1.1); Immature Granulocytes # (auto) 0.13 K/uL (0.01-0.20); Immature Granulocytes % (auto) 1.2 %; Partial Thromboplastin Time 32 Seconds (21-31); Prothrombin Time 11.9 Seconds (9.0-12.0); Toxic Granulation 1+; Toxic Vacuolation 1+
[2024-09-29 12:05] LABS: Alanine Aminotransferase 38.0 U/L (7-52); Alkaline Phosphatase 47.0 U/L (34-104); Anion Gap 17.0 (3-11); Bilirubin,Total 1.2 mg/dl (0.2-1.0); Blood Urea Nitrogen 17.0 mg/dl (6-23); Calcium 7.9 mg/dl (8.6-10.3); Carbon Dioxide 17.0 mmol/L (21-32); Chloride 89.0 mmol/L (98-107); Creatinine Clr Calc Pharmacy 87.1 ml/min; Glucose 167.0 mg/dl (70-99(Fasting)); Magnesium 1.0 mg/dl (1.7-2.4); Potassium 2.3 mmol/L (3.5-5.1); Sodium 123.0 mmol/L (136-145); Total Protein 6.9 gm/dl (6.0-8.3)
[2024-09-29 12:14] LABS: Appearance Urine Cloudy (Clear); Bacteria Urine Automated None Seen (None Seen); Cast Urine Automated >20 /lpf (0-2); Glucose Urine UA Trace (Negative)
[2024-09-29] MEDS: OPTIRAY 320 125ml IV ONE (12:44)
--- NOTE | 2024-09-29 13:12 | CT Scan Report ---
Clinical History: Fall Technique: Axial computed tomography images were obtained of the brain from the vertex to the skull base without intravenous contrast. Comparison is made to the prior CT dated 06/12/2016 Findings: There is no sign of intracranial hemorrhage. There is a low attenuation area in the right cerebellar hemisphere that could be due to a subacute or old infarct. No midline shift or other form of herniation is identified. There is no hydrocephalus. There is a new right frontoparietal craniotomy defect No obvious mass lesion is seen on this noncontrast examination. The visualized portions of the orbits and paranasal sinuses appear unremarkable. 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 MRI with diffusion-weighted images could be considered for further evaluation ACT 112: Positive. There are findings on this exam that require communication between the performing entity and the patient following Patient Test Result Information Act [place] ACT 112) guidelines. Electronically signed by Hiram San 09-29-2024 13:11 PM
--- NOTE | 2024-09-29 13:42 | CT Scan Report ---
Clinical history: Fall Technique: Axial computed tomography images were obtained of the cervical spine without intravenous contrast. Sagittal and coronal reconstructions were obtained Comparison is made to the prior CT dated 06/12/2016 Findings: No fracture is identified. No listhesis is seen. No focal osseous lesion is evident. 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 There is no spinal stenosis. The neural foramen are patent At C3-4, there is mild spinal stenosis due to a disc bulge and a right paracentral disc protrusion. There is mild bilateral neural foramen narrowing At C4-5, there is mild spinal stenosis due to a disc bulge and a suspected central disc protrusion. There is mild right neural foramen narrowing At C5-6, there is spinal stenosis due to a disc bulge and a right paracentral disc osteophyte protrusion. There is right neural foramen narrowing that may affect the right C6 nerve root At C6-7, there is spinal stenosis due to a disc bulge and a left paracentral disc protrusion. There is mild left neural foramen narrowing At C7-T1, there is a disc bulge without spinal stenosis. The neural foramen are patent The lung apices appear clear. The visualized soft tissues of the neck appear unremarkable. No foreign body is seen Impression: 1. No definite cervical spine fracture 2. Spinal stenosis from C3-4 through C6-7 3. Right C5-6 neural foramen narrowing that may affect the right C6 nerve root. Less severe neural foramen narrowing is seen at other levels Electronically signed by Hiram San 09-29-2024 13:42 PM
--- NOTE | 2024-09-29 13:46 | CT Scan Report ---
Clinical history: Shortness of breath Technique: Axial computed tomography images were obtained of the chest after the administration of intravenous contrast according to the CT angiogram protocol Comparison is made to the prior CT dated 02/25/2024 Findings: There is no definite sign of pulmonary embolism. There is alveolar consolidation in the right upper lobe and right middle lobe, consistent with pneumonia. There is mild emphysema. There is mild subsegmental atelectasis in both lower lobes. There is no left pleural effusion or pneumothorax. There is a small right pleural effusion. No endobronchial lesion is seen There are mildly enlarged mediastinal lymph nodes, measuring up to 1.5 cm in short axis. The thoracic aorta appears unremarkable with no sign of aneurysm or dissection. There is no pericardial effusion. There is coronary atherosclerosis The visualized upper abdomen appears unremarkable. No fracture is seen. No focal osseous lesion is evident Impression: 1. No definite sign of pulmonary embolism 2. Right upper lobe and right middle lobe pneumonia 3. Small right pleural effusion 4. Mild mediastinal adenopathy, which may be related to the pneumonia ACT 112: Positive. There are findings on this exam that require communication between the performing entity and the patient following Patient Test Result Information Act ([place] ACT 112) guidelines. Electronically signed by Hiram San 09-29-2024 13:45 PM
--- NOTE | 2024-09-29 14:01 | History & Physical Report ---
Date of Service September 29, 2024 Assessment & Plan (1) Hypokalemia: (2) Acute exacerbation of chronic obstructive pulmonary disease: (3) Respiratory failure: (4) COPD (chronic obstructive pulmonary disease) with emphysema: (5) Hypertension: (6) Acute hyponatremia: (7) Acute non-ST elevation myocardial infarction (NSTEMI): (8) Fall: (9) Head injury: Plan This is a 64-year-old morbidly obese male with a history of COPD, hypertension who presents with severe respiratory distress, now on BiPAP. Chest x-ray showed pneumonia. He was given DuoNebs, steroids, ceftriaxone in the emergency room. Labs significant for lactic acidosis of 5, anion gap metabolic acidosis, hyponatremia, hypokalemia, elevated troponin, elevated procalcitonin. His blood pressure dropped while in the ER. He is being admitted to the ICU with acute hypoxic respiratory failure, pneumonia with severe sepsis #Acute hypoxic respiratory failure Due to a combination of COPD exacerbation and pneumonia Patient was given ceftriaxone in the emergency room along with Solu-Medrol and DuoNebs I will continue COPD treatment with Solu-Medrol and DuoNebs I will broaden the coverage to include vancomycin since he became hypotensive and azithromycin to cover community-acquired pneumonia. He is on BiPAP. 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 Will add vancomycin since he became hypotensive in the emergency room He was hypotensive, tachycardic, tachypneic, with lactic acidosis of 5. Meets criteria for severe sepsis Blood cultures obtained Monitor vitals in ICU Repeat lactic acid level came down to 3.3 Patient got 3 L of IV fluids in the emergency room. Continue normal saline with potassium at 150 mL an hour Source of sepsis seems to be respiratory. #Anion gap metabolic acidosis/lactic acidosis Most likely due to sepsis Treat sepsis and follow labs Lactic acidosis improving #Hyponatremia/hypokalemia Hyponatremia most likely due to dehydration from sepsis. Fluid resuscitate. Renal function is stable Recheck BMP at 5 PM #Elevated troponin Patient does not complain of any chest pain EKG reviewed. No ST-T wave changes. An echocardiogram may be considered in near future if troponins trend up Most likely demand ischemia due to hypoxia and tachycardia. Trend troponins #Subacute/chronic right cerebellar infarct CT head was done because the patient had a fall with head trauma last night. It showed a subacute/chronic right cerebellar infarct I will start the patient on a baby aspirin for now Stroke workup may be initiated once the patient has been stabilized An MRI will be considered at a later time #Hypertension Blood pressure is rather on the low side. Patient was hypotensive in the emergency room and blood pressure still soft Hold losartan #COPD Please see treatment of acute hypoxic respiratory failure above VTE prophylaxis: Lovenox Full code History of Present Illness Chief Complaint: Shortness of breath Primary Care Provider: HAYES Thakur This is a 64-year-old obese male with a history of COPD, hypertension who presented to the ER with shortness of breath. The patient is not able to provide any history as he is on a BiPAP. He is accompanied by his son who has no knowledge of his medical history. Per ER documentation, he was found to be in respiratory distress by EMS. He was placed on CPAP. Reportedly, the patient had a fall last evening and has a small abrasion on his forehead as a result of the fall. The patient was started on a BiPAP in the ER. His initial blood pressure was 116/89 but it had later dropped to as low as 88/64 while in the ER. His screening tests were significant for normal WBC count, hyponatremia of 123 hypokalemia of 2.3, anion gap metabolic acidosis with an anion gap of 17, CO2 of 17, lactate of 5.4, troponin of 184.5, Pro-Martínez of 4.5. Chest x-ray showed a right upper and middle lobe consolidation. CT a chest showed no PE but confirmed the right upper and middle lobe pneumonia. CT head was done because of the fall, showed no intracranial hemorrhage but a subacute or old right cerebellar infarct is suspected. The patient was able to talk to me minimally through the BiPAP. He tells me that he feels better compared to when he first came. He is breathing better. He got ceftriaxone, DuoNebs, steroids and 3 L of IV fluid in the emergency room. 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 I will admit the patient to the ICU. Allergies Allergy/AdvReac Type Severity Reaction Status Date / Time hydrocodone Allergy Unknown hives Verified 12/26/22 16:54 Home Medications Medication Instructions Recorded Confirmed Type nebulizer accessories #1 ea 06/09/22 12/26/22 Rx nebulizers #1 ea 06/09/22 12/26/22 Rx albuterol sulfate 2.5 mg/3 mL 2.5 mg (3 mL) inhalation QID PRN 06/10/22 09/29/24 Rx (0.083 %) solution for nebulization shortness of breath or wheezing #180 mL ipratropium bromide 0.02 % 2.5 ml inhalation QID PRN 06/28/22 09/29/24 Rx solution for inhalation shortness of breath or wheezing #150 mL clobetasol 0.025 % topical cream 1 applic topical DAILY PRN Other 12/26/22 09/29/24 History albuterol sulfate 90 mcg/actuation 2 puff inhalation Q6H PRN 02/01/23 09/29/24 Rx aerosol inhaler shortness of breath or wheezing #18 grams fluticasone fur. 100 mcg-umeclid 1 inh inhalation DAILY #28 ea 01/24/24 09/29/24 Rx 62.5 mcg-vilant 25 mcg inhalat.powder (Trelegy Ellipta) losartan 100 mg tablet 100 mg PO DAILY #14 tabs 01/24/24 09/29/24 Rx Past Med/Surg History Problem List (Updated 09/29/24 @ 12:27 by Alonso Gonzalez DO) Acute hyponatremia (Acute) Acute non-ST elevation myocardial infarction (NSTEMI) (Acute) Fall (Acute) Head injury (Acute) Hypokalemia (Acute) Acute exacerbation of chronic obstructive pulmonary disease (Acute) Respiratory failure (Acute) Elevated LFTs Anemia COPD (chronic obstructive pulmonary disease) with emphysema KIRBY (dyspnea on exertion) History of tobacco abuse Lower extremity edema Hypertension Medical History Acute subdural hematoma Sciatica Surgical History S/P brain surgery S/P wisdom tooth extraction Family History Mother Breast cancer Myocardial infarction Ovarian cancer Father Hodgkin lymphoma Denies family history of Prostate cancer Colorectal cancer Social History Smoking Status: Former smoker Tobacco Type: Cigarettes Age Started Using Tobacco: 17; Age Quit Using Tobacco: 52; packs per day: 1; Second Hand Exposure: No; Do You Dip or Chew Tobacco: No; Hx Alcohol Use: Yes Alcohol type: beer Hx Substance Use: Yes Prescribed Medications: Marijuana Preferred Language: Indonesian Communication Ability: Effective Visual Impairment: No Limitations Hearing Ability: Normal Advanced Practice Professional Required: No Beliefs That Will Affect Care: None marital status: Current Living Situation: Spouse current occupational status: unemployed How many Children do You have: 1 Feels Safe at Home: Yes Childhood Exposure to Second-Hand Smoke: Yes Diet: regular Diet Comment: Regular caffeine: Yes during the past year weight has: remained stable Dental Care, Regularly: No Physical Activity Frequency: 3-4 Times per Week Seatbelt Use: sometimes Sunscreen Use: No Review of Systems Review of Systems: Other Physical Exam Physical Exam: General: Morbidly obese patient. Has a BiPAP mask on. During my encounter, he was breathing quite fast but he says that this is better than when he first arrived to the ER Heart: S1, S2/tachycardic, regular rhythm., no murmur rubs or gallops Lungs: Wheezing bilaterally. Prolonged expiration. Increased effort Abdomen: Soft/nontender/nondistended. No hepatosplenomegaly Extremities: No clubbing/cyanosis. Trace bilateral ankle edema Behavior: Appropriate, cooperative Results & Data Results & Data Vital Signs (Past 12 Hours) Vital Signs Temp Pulse Pulse Resp BP Pulse Ox O2 Del Method 09/29/24 13:06 145 H 27 H 100 09/29/24 13:06 103/75 09/29/24 13:00 135 H 29 H 09/29/24 12:33 138 H 32 H 100 09/29/24 12:30 88/64 L 09/29/24 12:30 88/64 L 09/29/24 12:24 138 H 23 100 09/29/24 12:15 159 H 28 H 100 09/29/24 12:01 101/77 09/29/24 12:00 159 H 34 H 98 09/29/24 12:00 36.7 C 149 H 30 H 09/29/24 11:45 159 H 35 H 97 09/29/24 11:43 97 BiPAP 09/29/24 11:30 163 H 32 H 96 09/29/24 11:30 164 H 09/29/24 11:27 158 H 32 H 98 09/29/24 11:19 170 H 32 H 97 BiPAP 09/29/24 11:18 162 H 32 H 97 09/29/24 11:17 170 H 32 H 97 09/29/24 11:09 36.7 C 165 H 34 H 116/89 96 BiPAP 09/29/24 11:00 36.7 C FiO2 09/29/24 13:06 09/29/24 13:06 09/29/24 13:00 09/29/24 12:33 09/29/24 12:30 09/29/24 12:30 09/29/24 12:24 09/29/24 12:15 09/29/24 12:01 09/29/24 12:00 09/29/24 12:00 09/29/24 11:45 09/29/24 11:43 09/29/24 11:30 09/29/24 11:30 09/29/24 11:27 09/29/24 11:19 70 09/29/24 11:18 09/29/24 11:17 70 09/29/24 11:09 09/29/24 11:00 Laboratory Results Abnormal lab results 09/29/24 09/29/24 09/29/24 Range/Units 11:05 11:08 11:46 Plt Count 121 L (130-400) K/uL Neut # (Auto) 9.62 H (1.40-6.50) K/uL Lymph # (Auto) 0.24 L (1.20-3.40) K/uL APTT 32 H (21-31) Seconds VBG pH 7.48 H (7.36-7.41) VBG pCO2 22 L (38-50) mmHg POC Sodium 124 L (135-144) mmol/L Sodium 123 L (136-145) mmol/L POC Potassium 2.3 L* (3.3-5.0) mmol/L Potassium 2.3 L* (3.5-5.1) mmol/L POC Chloride 91 L (101-112) mmol/L Chloride 89 L (98-107) mmol/L Carbon Dioxide 17 L (21-32) mmol/L POC Total CO2 15 L (24-31) mmol/L Anion Gap 17 H (3-11) Glucose 167 H (70-99(Fasting)) mg/dl POC Glucose (other) 167 H (70-99) mg/dl Lactate 5.4 H* (0.4-2.0) mmol/L Calcium 7.9 L (8.6-10.3) mg/dl POC Ioniz Calcium Radha 0.86 L (1.12-1.32) mmol/l Magnesium 1.0 L (1.7-2.4) mg/dl Total Bilirubin 1.2 H (0.2-1.0) mg/dl Direct Bilirubin 0.4 H (0-0.2) mg/dl AST 86 H (13-39) U/L Troponin I High Sens 184.5 H* (0-20) pg/ml Procalcitonin 4.49 H (0-0.5) ng/ml Urine Appearance Cloudy A (Clear) Urine Protein 3+ H (Negative) Urine Glucose (UA) Trace H (Negative) Urine Ketones 1+ H (Negative) Urine Blood 3+ H (Negative) Urine WBC (Auto) 6-10 H (0-5) /hpf Urine RBC (Auto) 6-10 H (0-2) /hpf U Hyaline Cast (Auto) >20 H (0-2) /lpf U Epithel Cells (Auto) 3-5 H (0-2) /hpf Amorphous Sediment Present A (None Prsent) Granular Casts Present A (None Prsent) /lpf 09/29/24 Range/Units 13:44 Plt Count (130-400) K/uL Neut # (Auto) (1.40-6.50) K/uL Lymph # (Auto) (1.20-3.40) K/uL APTT (21-31) Seconds VBG pH (7.36-7.41) VBG pCO2 (38-50) mmHg POC Sodium (135-144) mmol/L Sodium (136-145) mmol/L POC Potassium (3.3-5.0) mmol/L Potassium (3.5-5.1) mmol/L POC Chloride (101-112) mmol/L Chloride (98-107) mmol/L Carbon Dioxide (21-32) mmol/L POC Total CO2 (24-31) mmol/L Anion Gap (3-11) Glucose (70-99(Fasting)) mg/dl POC Glucose (other) (70-99) mg/dl Lactate 3.3 H* (0.4-2.0) mmol/L Calcium (8.6-10.3) mg/dl POC Ioniz Calcium Radha (1.12-1.32) mmol/l Magnesium (1.7-2.4) mg/dl Total Bilirubin (0.2-1.0) mg/dl Direct Bilirubin (0-0.2) mg/dl AST (13-39) U/L Troponin I High Sens (0-20) pg/ml Procalcitonin (0-0.5) ng/ml Urine Appearance (Clear) Urine Protein (Negative) Urine Glucose (UA) (Negative) Urine Ketones (Negative) Urine Blood (Negative) Urine WBC (Auto) (0-5) /hpf Urine RBC (Auto) (0-2) /hpf U Hyaline Cast (Auto) (0-2) /lpf U Epithel Cells (Auto) (0-2) /hpf Amorphous Sediment (None Prsent) Granular Casts (None Prsent) /lpf Diagnostic Findings Chest X-Ray 09/29/24 10:58 Clinical History: Sepsis Technique: 2 frontal views of the chest were obtained Findings: There is right upper lobe and right middle lobe alveolar consolidation. The heart size is within normal limits. No pleural effusion or pneumothorax is seen. There is no definite pulmonary nodule. No fracture is noted. No foreign body is seen Impression: Right lung pneumonia ACT 112: Positive. There are findings on this exam that require communication between the performing entity and the patient following Patient Test Result Information Act [place] ACT 112) guidelines. Electronically signed by Hiram San 09-29-2024 11:[address] 09/29/24 11:02 Clinical history: Fall Technique: Axial computed tomography images were obtained of the cervical spine without intravenous contrast. Sagittal and coronal reconstructions were obtained Comparison is made to the prior CT dated 06/12/2016 Findings: No fracture is identified. No listhesis is seen. No focal osseous lesion is evident. 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 There is no spinal stenosis. The neural foramen are patent At C3-4, there is mild spinal stenosis due to a disc bulge and a right paracentral disc protrusion. There is mild bilateral neural foramen narrowing At C4-5, there is mild spinal stenosis due to a disc bulge and a suspected central disc protrusion. There is mild right neural foramen narrowing At C5-6, there is spinal stenosis due to a disc bulge and a right paracentral disc osteophyte protrusion. There is right neural foramen narrowing that may affect the right C6 nerve root At C6-7, there is spinal stenosis due to a disc bulge and a left paracentral disc protrusion. There is mild left neural foramen narrowing At C7-T1, there is a disc bulge without spinal stenosis. The neural foramen are patent The lung apices appear clear. The visualized soft tissues of the neck appear unremarkable. No foreign body is seen Impression: 1. No definite cervical spine fracture 2. Spinal stenosis from C3-4 through C6-7 3. Right C5-6 neural foramen narrowing that may affect the right C6 nerve root. Less severe neural foramen narrowing is seen at other levels Electronically signed by Hiram San 09-29-2024 13:[address] 09/29/24 11:02 Clinical History: Fall Technique: Axial computed tomography images were obtained of the brain from the vertex to the skull base without intravenous contrast. Comparison is made to the prior CT dated 06/12/2016 Findings: There is no sign of intracranial hemorrhage. There is a low attenuation area in the right cerebellar hemisphere that could be due to a subacute or old infarct. No midline shift or other form of herniation is identified. There is no hydrocephalus. There is a new right frontoparietal craniotomy defect No obvious mass lesion is seen on this noncontrast examination. The visualized portions of the orbits and paranasal sinuses appear unremarkable. 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 MRI with diffusion-weighted images could be considered for further evaluation ACT 112: Positive. There are findings on this exam that require communication between the performing entity and the patient following Patient Test Result Information Act [place] ACT 112) guidelines. Electronically signed by Hiram San 09-29-2024 13:11 PM Pelvis X-Ray 09/29/24 11:02 Clinical History: Sepsis One view of the pelvis is submitted for review. Findings: No fracture or dislocation is seen. No significant arthritic changes are noted. No other osseous abnormality is identified. There are no radiopaque foreign bodies. Vascular calcifications are present Impression: Unremarkable pelvic radiograph Electronically signed by Hiram San 09-29-2024 11:28 AM Chest CTA 09/29/24 12:28 Clinical history: Shortness of breath Technique: Axial computed tomography images were obtained of the chest after the administration of intravenous contrast according to the CT angiogram protocol Comparison is made to the prior CT dated 02/25/2024 Findings: There is no definite sign of pulmonary embolism. There is alveolar consolidation in the right upper lobe and right middle lobe, consistent with pneumonia. There is mild emphysema. There is mild subsegmental atelectasis in both lower lobes. There is no left pleural effusion or pneumothorax. There is a small right pleural effusion. No endobronchial lesion is seen There are mildly enlarged mediastinal lymph nodes, measuring up to 1.5 cm in short axis. The thoracic aorta appears unremarkable with no sign of aneurysm or dissection. There is no pericardial effusion. There is coronary atherosclerosis The visualized upper abdomen appears unremarkable. No fracture is seen. No focal osseous lesion is evident Impression: 1. No definite sign of pulmonary embolism 2. Right upper lobe and right middle lobe pneumonia 3. Small right pleural effusion 4. Mild mediastinal adenopathy, which may be related to the pneumonia ACT 112: Positive. There are findings on this exam that require communication between the performing entity and the patient following Patient Test Result Information Act ([place] ACT 112) guidelines. Electronically signed by Hiram San 09-29-2024 13:45 PM Code Status & VTE Plan VTE Prophylaxis Plan VTE Prophylaxis will be ordered: Yes PG Care Time/CCT Total # of Minutes Spent Total Time Spent with Patient: Total time spent is greater than 50% in coordination of care (as documented) at patient's floor/unit and/or counseling patient: Coding Level of Care Code 67125 INT INP/OBS CARE 2/55MIN Diagnoses Hypokalemia E87.6 Acute exacerbation of chronic obstructive pulmonary disease J44.1 Respiratory failure J96.90 COPD (chronic obstructive pulmonary disease) with emphysema J43.9 Hypertension I10 Acute hyponatremia E87.1 Acute non-ST elevation myocardial infarction (NSTEMI) I21.4 Fall W19.XXXA Head injury S09.90XA
[2024-09-29] MEDS: NSS + 20MEQ KCL 20 MEQ/1,000 ML BAG IV SCH (14:51)
[2024-09-29] MEDS: ENOXAPARIN INJ 40 MG/0.4 ML SYR SQ SCH (14:55)
[2024-09-29] MEDS ORDERED: VANCOMYCIN CONSULT ACTIVE PRN (14:57)
--- NOTE | 2024-09-29 15:16 | Pharmacy Report ---
Pharmacy PK ABX Note - Date of Service September 29, 2024 - Assessment and Plan Assessment 64 year old M receiving Vancomycin, Azithromycin, and Ceftriaxone for treatment of empiric sepsis likely from a pulmonary source. * Day #1 of antimicrobial therapy. History of COPD and BMI > 40. * Afebrile. No leukocytosis. SCr 1.16 mg/dL today, unknown baseline. Lactate and procalcitonin elevated. * Blood cultures and MRSA nasal swab pending. Plan Vancomycin * Loading dose: 2500 mg IV x 1 * Maintenance dose: 1250 mg IV every 12 hours * Regimen is predicted to achieve target AUC/BEV of 400-600 mg/L.hr * Level will be ordered if therapy extends beyond 48 hours Pharmacy will continue to follow and will adjust dose/frequency as necessary. Thank you. Pharmacy has transitioned to AUC monitoring for vancomycin. AUC/BEV is the preferred PK/PD target and is associated with decreased risk of nephrotoxicity compared to traditional trough targets.
[2024-09-29] MEDS: VANCOMYCIN HCL 2,500 MG in SODIUM CHLORIDE 0.9% 500 ML IV STA (15:25)
[2024-09-29] MEDS: AZITHROMYCIN 500 MG/255 ML BAG IV SCH (16:01)
--- NOTE | 2024-09-29 16:48 | Critical Care Consultation ---
Date of Consultation September 29, 2024 Assessment & Plan (1) Pneumonia: (2) Pleural effusion: (3) Acute hyponatremia: (4) Hypokalemia: (5) Acute hypoxemic respiratory failure: (6) Lactic acidosis: (7) Severe sepsis with septic shock: Plan Impression: 64-year-old male with severe obstructive lung disease at baseline admitted with multifocal pneumonia and hypoxemic respiratory failure with concomitant lactic acidosis. Lactate is improved with IV fluids. He is currently on antibiotics. He was placed on noninvasive positive pressure ventilation admitted to the ICU. Recommendations: 1. Neurologic: Nonfocal exam currently. CT scan showed questionable sella Jordan infarct. He does not have signs and symptoms of a cerebellar stroke. MRI may be indicated if neurological deficits when clinically stable. Trauma imaging unrevealing 2. Cardiovascular: Lactic acidosis: Status post 3 L of fluid. Improved hemodynamics with clearance of lactate. Continue to monitor at this point in time. Patient may require vasopressor agents if he deteriorates clinically. Patient had a mild elevation in troponin likely supply/demand mismatch. Will continue to trend troponin until peaks. If concerning, will obtain transthoracic echocardiogram. Check BNP level. Hold losartan 3. Respiratory: Multifocal pneumonia in the setting of advanced obstructive lung disease. Will continue nebulized budesonide and Perforomist for now. DuoNebs as needed. Patient is on steroids for severe pneumonia. Wean oxygen as tolerated. The patient already demonstrates a respiratory alkalosis so there is no indication for BiPAP. Will attempt to wean to a nasal cannula and see how he does. If he fails, CPAP may be trialed. Should the patient's respiratory status worsen, intubation mechanical ventilation would be warranted pending improvement in his pulmonary infectious issues. This was discussed with the patient and significant other at bedside. The patient does have a small pleural effusion on imaging studies which will require radiographic surveillance. Repeat chest x-ray in a.m. 4. GI: N.p.o. for now. Mild elevation in transaminases will be trended as well. Continue Protonix 5. Renal: Patient presented with hyponatremia and hypokalemia. He received 3 L of saline. Will trend BMP. Replace calcium. Discontinue normal saline given the patient's electrolyte abnormalities 6. Endocrine: Glycemic control per protocol. 7. ID: Severe community-acquired pneumonia. The patient is currently receiving Rocephin, azithromycin, and vancomycin. Vancomycin can be discontinued if MRSA of the nares are negative. He is not been on antibiotics or had risk factors for MRSA that I can identify. Given the severity of his illness, concomitant steroids for severe community-acquired pneumonia seems reasonable. Check Legionella urinary antigen. Follow-up blood cultures 8. Heme-onc: No current issues. Prophylaxis with Lovenox Patient is critically ill at this point in time with significant possibility of clinical decline and development of multiorgan system failure. A total of 41 minutes in critical care time was spent in evaluation management coordination of care for this patient including discussion with bedside ICU nurse History of Present Illness Attending Physician: Pa Younger MD History of Present Illness Asked by hospitalist to assist in evaluation management of this patient admitted with multifocal pneumonia and hypoxemic respiratory failure. History is obtained from review the electronic medical record, discussion with the ER staff, and interviewed the patient and family at bedside. Patient is a 64-year-old male with a history of severe obstructive lung disease who quit smoking about 10 years ago who presented to the emergency room with a 2 to 3-day history of shortness of breath. He was apparently placed on noninvasive positive pressure ventilation after being found to be in respiratory distress by EMS. His white count was normal however procalcitonin was elevated. He was hypokalemic and hyponatremic. Lactic acidosis was identified. He received Rocephin steroids and 3 L in the emergency room with improvement in his lactate and was admitted to the ICU. The patient's blood gas showed respiratory alkalosis. He states he is feeling better currently. The patient's family members report that he was involved in moving and was exposed to some dust from his basement over the last several days. He is unclear if there were any rodents in the basement. They have 1 dog at home. No other occupational or environmental exposures. No significant travel history. Allergies Allergy/AdvReac Type Severity Reaction Status Date / Time hydrocodone Allergy Unknown hives Verified 12/26/22 16:54 Home Medications Medication Instructions Recorded Confirmed Type nebulizer accessories #1 ea 06/09/22 12/26/22 Rx nebulizers #1 ea 06/09/22 12/26/22 Rx albuterol sulfate 2.5 mg/3 mL 2.5 mg (3 mL) inhalation QID PRN 06/10/22 09/29/24 Rx (0.083 %) solution for nebulization shortness of breath or wheezing #180 mL ipratropium bromide 0.02 % 2.5 ml inhalation QID PRN 06/28/22 09/29/24 Rx solution for inhalation shortness of breath or wheezing #150 mL clobetasol 0.025 % topical cream 1 applic topical DAILY PRN Other 12/26/22 09/29/24 History albuterol sulfate 90 mcg/actuation 2 puff inhalation Q6H PRN 02/01/23 09/29/24 Rx aerosol inhaler shortness of breath or wheezing #18 grams fluticasone fur. 100 mcg-umeclid 1 inh inhalation DAILY #28 ea 01/24/24 09/29/24 Rx 62.5 mcg-vilant 25 mcg inhalat.powder (Trelegy Ellipta) losartan 100 mg tablet 100 mg PO DAILY #14 tabs 01/24/24 09/29/24 Rx Patient History Medical History Acute subdural hematoma Sciatica Surgical History S/P brain surgery S/P wisdom tooth extraction Family History Mother Breast cancer Myocardial infarction Ovarian cancer Father Hodgkin lymphoma Denies family history of Prostate cancer Colorectal cancer Social History Smoking Status: Former smoker Tobacco Type: Cigarettes Age Started Using Tobacco: 17; Age Quit Using Tobacco: 52; packs per day: 1; Second Hand Exposure: No; Do You Dip or Chew Tobacco: No; Hx Alcohol Use: Yes Alcohol type: beer Hx Substance Use: Yes Prescribed Medications: Marijuana Preferred Language: Serbian Communication Ability: Effective Visual Impairment: No Limitations Hearing Ability: Normal Tire Sorter Required: No Beliefs That Will Affect Care: None marital status: Current Living Situation: Spouse current occupational status: unemployed How many Children do You have: 1 Feels Safe at Home: Yes Childhood Exposure to Second-Hand Smoke: Yes Diet: regular Diet Comment: Regular caffeine: Yes during the past year weight has: remained stable Dental Care, Regularly: No Physical Activity Frequency: 3-4 Times per Week Seatbelt Use: sometimes Sunscreen Use: No Review of Systems Review of Systems: Please refer to admission H&P. No additions or deletions Physical Exam Constitutional: + ill appearing, + obese and + diaphoret ic Neck: trachea midline, no thyromegaly Respiratory: + tachypneic; no cough Auscultation: + diminished lung sounds and + rhonchi; no wheezes Cardiovascular: RRR, no murmur, no edema Gastrointestinal (Abdomen): normal bowel sounds, soft, nontender, no hepatosplenomegaly Musculoskeletal: Extremities: extremities normal to inspection Skin: no rashes, warm and dry Neurologic: Nonfocal exam Lymphatic: no cervical lymphadenopathy Results & Data Results & Data Vital Signs (Past 12 Hours) Vital Signs Temp Pulse Pulse Resp BP Pulse Ox O2 Del Method 09/29/24 15:42 39.1 C H 09/29/24 15:39 135 H 30 H 97 09/29/24 15:30 108/77 09/29/24 15:21 134 H 29 H 98 09/29/24 15:10 111/77 09/29/24 15:00 135 H 30 H 97 09/29/24 14:03 136 H 27 H 97 09/29/24 14:00 106/83 09/29/24 14:00 106/83 09/29/24 14:00 36.7 C 09/29/24 13:54 133 H 26 H 93 09/29/24 13:30 120/77 09/29/24 13:15 133 H 25 H 99 09/29/24 13:12 138 H 29 H 96 09/29/24 13:06 145 H 27 H 100 09/29/24 13:06 103/75 09/29/24 13:00 135 H 29 H 09/29/24 12:33 138 H 32 H 100 09/29/24 12:30 88/64 L 09/29/24 12:30 88/64 L 09/29/24 12:24 138 H 23 100 09/29/24 12:15 159 H 28 H 100 09/29/24 12:01 101/77 09/29/24 12:00 159 H 34 H 98 09/29/24 12:00 36.7 C 149 H 30 H 09/29/24 11:45 159 H 35 H 97 09/29/24 11:43 97 BiPAP 09/29/24 11:30 163 H 32 H 96 09/29/24 11:30 164 H 09/29/24 11:27 158 H 32 H 98 09/29/24 11:19 170 H 32 H 97 BiPAP 09/29/24 11:18 162 H 32 H 97 09/29/24 11:17 170 H 32 H 97 09/29/24 11:09 36.7 C 165 H 34 H 116/89 96 BiPAP 09/29/24 11:00 36.7 C FiO2 09/29/24 15:42 09/29/24 15:39 09/29/24 15:30 09/29/24 15:21 09/29/24 15:10 09/29/24 15:00 09/29/24 14:03 09/29/24 14:00 09/29/24 14:00 09/29/24 14:00 09/29/24 13:54 09/29/24 13:30 09/29/24 13:15 09/29/24 13:12 09/29/24 13:06 09/29/24 13:06 09/29/24 13:00 09/29/24 12:33 09/29/24 12:30 09/29/24 12:30 09/29/24 12:24 09/29/24 12:15 09/29/24 12:01 09/29/24 12:00 09/29/24 12:00 09/29/24 11:45 09/29/24 11:43 09/29/24 11:30 09/29/24 11:30 09/29/24 11:27 09/29/24 11:19 70 09/29/24 11:18 09/29/24 11:17 70 09/29/24 11:09 09/29/24 11:00 Critical Care Results & Data Vital Signs (Past 12 Hours) Vital Signs Temp Pulse Pulse Resp BP Pulse Ox O2 Del Method 09/29/24 15:42 39.1 C H 09/29/24 15:39 135 H 30 H 97 09/29/24 15:30 108/77 09/29/24 15:21 134 H 29 H 98 09/29/24 15:10 111/77 09/29/24 15:00 135 H 30 H 97 09/29/24 14:03 136 H 27 H 97 09/29/24 14:00 106/83 09/29/24 14:00 106/83 09/29/24 14:00 36.7 C 09/29/24 13:54 133 H 26 H 93 09/29/24 13:30 120/77 09/29/24 13:15 133 H 25 H 99 09/29/24 13:12 138 H 29 H 96 09/29/24 13:06 145 H 27 H 100 09/29/24 13:06 103/75 09/29/24 13:00 135 H 29 H 09/29/24 12:33 138 H 32 H 100 09/29/24 12:30 88/64 L 09/29/24 12:30 88/64 L 09/29/24 12:24 138 H 23 100 09/29/24 12:15 159 H 28 H 100 09/29/24 12:01 101/77 09/29/24 12:00 159 H 34 H 98 09/29/24 12:00 36.7 C 149 H 30 H 09/29/24 11:45 159 H 35 H 97 09/29/24 11:43 97 BiPAP 09/29/24 11:30 163 H 32 H 96 09/29/24 11:30 164 H 09/29/24 11:27 158 H 32 H 98 09/29/24 11:19 170 H 32 H 97 BiPAP 09/29/24 11:18 162 H 32 H 97 09/29/24 11:17 170 H 32 H 97 09/29/24 11:09 36.7 C 165 H 34 H 116/89 96 BiPAP 09/29/24 11:00 36.7 C FiO2 09/29/24 15:42 09/29/24 15:39 09/29/24 15:30 09/29/24 15:21 09/29/24 15:10 09/29/24 15:00 09/29/24 14:03 09/29/24 14:00 09/29/24 14:00 09/29/24 14:00 09/29/24 13:54 09/29/24 13:30 09/29/24 13:15 09/29/24 13:12 09/29/24 13:06 09/29/24 13:06 09/29/24 13:00 09/29/24 12:33 09/29/24 12:30 09/29/24 12:30 09/29/24 12:24 09/29/24 12:15 09/29/24 12:01 09/29/24 12:00 09/29/24 12:00 09/29/24 11:45 09/29/24 11:43 09/29/24 11:30 09/29/24 11:30 09/29/24 11:27 09/29/24 11:19 70 09/29/24 11:18 09/29/24 11:17 70 09/29/24 11:09 09/29/24 11:00 Lab & Micro Results (Past 24 Hours) RBC 4.73 M/uL (4.70-6.10) 09/29/24 WBC 10.41 K/ul (4.8-10.8) 09/29/24 Hgb 15.2 g/dl (14.0-18.0) 09/29/24 Hct 42.5 % (42.0-52.0) 09/29/24 MCV 89.9 fL (80.0-100.0) 09/29/24 MCH 32.1 pg (25.0-34.0) 09/29/24 MCHC 35.8 g/dL (32.0-36.0) 09/29/24 RDW Standard Deviation 39.3 fL (36.4-46.3) 09/29/24 RDW Coefficient of Variation 11.9 % (11.5-14.5) 09/29/24 Plt Count 121 K/uL (130-400) L 09/29/24 MPV 10.8 fL (9.4-12.4) 09/29/24 Neutrophils (%) (Auto) 92.4 % 09/29/24 Lymphocytes (%) (Auto) 2.3 % 09/29/24 Monocytes # (Auto) 0.33 K/uL (0.11-0.59) 09/29/24 Eosinophils # (Auto) 0.04 K/uL (0.00-0.50) 09/29/24 Immature Granulocyte % (Auto) 1.2 % 09/29/24 Neutrophils # (Auto) 9.62 K/uL (1.40-6.50) H 09/29/24 Lymphocytes # (Auto) 0.24 K/uL (1.20-3.40) L 09/29/24 Monocytes # (Auto) 0.33 K/uL (0.11-0.59) 09/29/24 Eosinophils # (Auto) 0.04 K/uL (0.00-0.50) 09/29/24 Basophils # (Auto) 0.05 K/uL (0.00-0.20) 09/29/24 Immature Granulocyte # (Auto) 0.13 K/uL (0.01-0.20) 5 Toxic Granulation 1+ 09/29/24 Toxic Vacuolation 1+ 09/29/24 Na 123 mmol/L (136-145) L 09/29/24 K 2.3 mmol/L (3.5-5.1) L* 09/29/24 Cl 89 mmol/L (98-107) L 09/29/24 CO2 17 mmol/L (21-32) L 09/29/24 Anion Gap 17 (3-11) H 09/29/24 BUN 17 mg/dl (6-23) 09/29/24 Creatinine 1.16 mg/dl (0.6-1.4) 09/29/24 BUN/Creatinine Ratio 14.7 (10-20) 09/29/24 Glu 167 mg/dl (70-99(Fasting)) H 09/29/24 Ca 7.9 mg/dl (8.6-10.3) L 09/29/24 Total Bilirubin 1.2 mg/dl (0.2-1.0) H 09/29/24 Direct Bilirubin 0.4 mg/dl (0-0.2) H 09/29/24 AST 86 U/L (13-39) H 09/29/24 ALT 38 U/L (7-52) 09/29/24 Alkaline Phosphatase 47 U/L (34-104) 09/29/24 TP 6.9 gm/dl (6.0-8.3) 09/29/24 Albumin 3.4 gm/dl (3.4-5.0) 09/29/24 Mg 1.0 mg/dl (1.7-2.4) L 09/29/24 11:08 Calcium Level 7.9 mg/dl (8.6-10.3) L 09/29/24 11:08 Prothromb Time International Ratio 1.1 (0.9-1.1) 09/29/24 11:0 8 Venous Blood pH 7.48 (7.36-7.41) H 09/29/24 11:08 Venous Blood Partial Pressure CO2 22 mmHg (38-50) L 09/29/24 11 :08 Venous Blood Partial Pressure O2 52 mmHg 09/29/24 11:08 Venous Blood HCO3 16 mmol/L 09/29/24 11:08 Venous Blood Base Excess -5.0 mEq/L 09/29/24 11:08 Venous Blood Oxygen Saturation 85.8 % 09/29/24 11:08 Diagnostic Findings (Past 24 Hours) Chest X-Ray 09/29/24 10:58 Clinical History: Sepsis Technique: 2 frontal views of the chest were obtained Findings: There is right upper lobe and right middle lobe alveolar consolidation. The heart size is within normal limits. No pleural effusion or pneumothorax is seen. There is no definite pulmonary nodule. No fracture is noted. No foreign body is seen Impression: Right lung pneumonia ACT 112: Positive. There are findings on this exam that require communication between the performing entity and the patient following Patient Test Result Information Act [place] ACT 112) guidelines. Electronically signed by Hiram San 09-29-2024 11:[address] 09/29/24 11:02 Clinical history: Fall Technique: Axial computed tomography images were obtained of the cervical spine without intravenous contrast. Sagittal and coronal reconstructions were obtained Comparison is made to the prior CT dated 06/12/2016 Findings: No fracture is identified. No listhesis is seen. No focal osseous lesion is evident. 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 There is no spinal stenosis. The neural foramen are patent At C3-4, there is mild spinal stenosis due to a disc bulge and a right paracentral disc protrusion. There is mild bilateral neural foramen narrowing At C4-5, there is mild spinal stenosis due to a disc bulge and a suspected central disc protrusion. There is mild right neural foramen narrowing At C5-6, there is spinal stenosis due to a disc bulge and a right paracentral disc osteophyte protrusion. There is right neural foramen narrowing that may affect the right C6 nerve root At C6-7, there is spinal stenosis due to a disc bulge and a left paracentral disc protrusion. There is mild left neural foramen narrowing At C7-T1, there is a disc bulge without spinal stenosis. The neural foramen are patent The lung apices appear clear. The visualized soft tissues of the neck appear unremarkable. No foreign body is seen Impression: 1. No definite cervical spine fracture 2. Spinal stenosis from C3-4 through C6-7 3. Right C5-6 neural foramen narrowing that may affect the right C6 nerve root. Less severe neural foramen narrowing is seen at other levels Electronically signed by Hiram San 09-29-2024 13:[address] 09/29/24 11:02 Clinical History: Fall Technique: Axial computed tomography images were obtained of the brain from the vertex to the skull base without intravenous contrast. Comparison is made to the prior CT dated 06/12/2016 Findings: There is no sign of intracranial hemorrhage. There is a low attenuation area in the right cerebellar hemisphere that could be due to a subacute or old infarct. No midline shift or other form of herniation is identified. There is no hydrocephalus. There is a new right frontoparietal craniotomy defect No obvious mass lesion is seen on this noncontrast examination. The visualized portions of the orbits and paranasal sinuses appear unremarkable. 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 MRI with diffusion-weighted images could be considered for further evaluation ACT 112: Positive. There are findings on this exam that require communication between the performing entity and the patient following Patient Test Result Information Act [place] ACT 112) guidelines. Electronically signed by Hiram San 09-29-2024 13:11 PM Pelvis X-Ray 09/29/24 11:02 Clinical History: Sepsis One view of the pelvis is submitted for review. Findings: No fracture or dislocation is seen. No significant arthritic changes are noted. No other osseous abnormality is identified. There are no radiopaque foreign bodies. Vascular calcifications are present Impression: Unremarkable pelvic radiograph Electronically signed by Hiram San 09-29-2024 11:28 AM Chest CTA 09/29/24 12:28 Clinical history: Shortness of breath Technique: Axial computed tomography images were obtained of the chest after the administration of intravenous contrast according to the CT angiogram protocol Comparison is made to the prior CT dated 02/25/2024 Findings: There is no definite sign of pulmonary embolism. There is alveolar consolidation in the right upper lobe and right middle lobe, consistent with pneumonia. There is mild emphysema. There is mild subsegmental atelectasis in both lower lobes. There is no left pleural effusion or pneumothorax. There is a small right pleural effusion. No endobronchial lesion is seen There are mildly enlarged mediastinal lymph nodes, measuring up to 1.5 cm in short axis. The thoracic aorta appears unremarkable with no sign of aneurysm or dissection. There is no pericardial effusion. There is coronary atherosclerosis The visualized upper abdomen appears unremarkable. No fracture is seen. No focal osseous lesion is evident Impression: 1. No definite sign of pulmonary embolism 2. Right upper lobe and right middle lobe pneumonia 3. Small right pleural effusion 4. Mild mediastinal adenopathy, which may be related to the pneumonia ACT 112: Positive. There are findings on this exam that require communication between the performing entity and the patient following Patient Test Result Information Act ([place] ACT 112) guidelines. Electronically signed by Hiram San 09-29-2024 13:45 PM I & O Totals 24 Hours 09/28/24 09/29/24 09/30/24 06:59 06:59 06:59 Intake Total 3431.667 / 3431.667 Balance 3431.667 / 3431.667 Cumulative 09/29/24 10:48 thru 09/29/24 15:51 Intake Total 3431.667 Balance 3431.667 RT Ventilator Mngmt (Last Documented) Ventilator Ordered Settings Respiratory Rate 30 09/29/24 15:39 Fraction of Inspired Oxygen 70 09/29/24 11:19 Ventilator - PT Measurements Respiratory Rate 30 Coding Level of Care Code 78301 CRITICAL CARE 1ST 30-74M Diagnoses Pneumonia J18.9 Pleural effusion J90 Acute hyponatremia E87.1 Hypokalemia E87.6 Acute hypoxemic respiratory failure J96.01 Lactic acidosis E87.20 Severe sepsis with septic shock A41.9; R65.21
[2024-09-29] MEDS: LACTATED RINGER'S 1,000 ML IV ONE (17:10)
[2024-09-29] MEDS: ACETAMINOPHEN 500 MG TAB PO PRN (17:10)
[2024-09-29 17:33] LABS: Alanine Aminotransferase 37.0 U/L (7-52); Albumin Globulin Ratio 1.0 (0.9-2); Alkaline Phosphatase 34.0 U/L (34-104); Anion Gap 11.0 (3-11); Bilirubin,Total 0.7 mg/dl (0.2-1.0); Blood Urea Nitrogen 16.0 mg/dl (6-23); Calcium 7.0 mg/dl (8.6-10.3); Carbon Dioxide 19.0 mmol/L (21-32); Chloride 96.0 mmol/L (98-107); Creatinine Clr Calc Pharmacy 127.0 ml/min; Globulin 2.9 gm/dl (2.5-4.0); Glucose 154.0 mg/dl (70-99(Fasting)); Magnesium 1.3 mg/dl (1.7-2.4); Potassium 2.6 mmol/L (3.5-5.1); Sodium 126.0 mmol/L (136-145); Total Protein 5.8 gm/dl (6.0-8.3)
[2024-09-29] MEDS ORDERED: SODIUM PHOSPHATE 3 MMOL/1 ML INFUSION IV STA (17:43)
[2024-09-29] MEDS: ICU ELECTROLYTE REPLACEMENT PROTOCOL SCH (17:49)
[2024-09-29] MEDS: MAGNESIUM SULFATE / D5W 1 GM/100 ML BAG IV SCH (18:06)
[2024-09-29] MEDS: SODIUM PHOSPHATE 21 MMOL in SODIUM CHLORIDE 0.9% 500 ML IV ONE (18:32)
[2024-09-29] MEDS: POTASSIUM CHLORIDE CRTAB 20 MEQ TABCR PO STA (19:15)
[2024-09-29] MEDS: ALBUT/IPRATROP 3MG/0.5MG NEB 3 ML VIAL INH SCH (19:31)
[2024-09-29] MEDS: CALCIUM GLUCONATE 1,000 MG/60 ML BAG IV SCH (20:43)
--- NOTE | 2024-09-29 20:51 | Communication Note ---
Date of Service: September 29, 2024 Troponin Level resulted at 1032.8, increase from 798 earlier- Patient is without complaints of chest pain. ECG obtained with result of HsCTNI and ECG is w ithout STEMI. Remains likely type II demand in light of hypoxia and tachycardia, and febrile state. His HR is now in the 100s following fever reduction, electrolyte and volume replacement. - Vitals reviewed - Imaging reviewed - Will hold on heparin at this time as above, this likely represents type II demand and not obstructive in setting of severe sepsis, will obtain ECHO in am, continue to trend troponin and symptoms. If changes occur or clinical picture changes that a coronary evaluation may be needed then will add heparin. Continue his aspirin daily for now. Saqib KOO (ACNP-)
[2024-09-30] MEDS: VANCOMYCIN HCL 1,250 MG in SODIUM CHLORIDE 0.9% 250 ML IV SCH (02:03)
[2024-09-30] MEDS: PLASMA-LYTE A 500 ML IV ONE ×2 (02:10→23:00)
[2024-09-30 04:28] LABS: Hematocrit (blood only) 39.8 % (42.0-52.0); Hemoglobin 13.9 g/dl (14.0-18.0); Mean Corpuscular Hemoglobin 32.0 pg (25.0-34.0); Mean Corpuscular Volume 91.7 fL (80.0-100.0); Platelet Count 105 K/uL (130-400); RDW Standard Deviation 41.0 fL (36.4-46.3); Red Blood Count 4.34 M/uL (4.70-6.10); White Blood Count 9.41 K/ul (4.8-10.8)
[2024-09-30 04:41] LABS: Anion Gap 9.0 (3-11); Blood Urea Nitrogen 13.0 mg/dl (6-23); Calcium 7.4 mg/dl (8.6-10.3); Carbon Dioxide 23.0 mmol/L (21-32); Chloride 97.0 mmol/L (98-107); Creatinine Clr Calc Pharmacy 137.3 ml/min; Glucose 147.0 mg/dl (70-99(Fasting)); Magnesium 2.1 mg/dl (1.7-2.4); Potassium 3.0 mmol/L (3.5-5.1); Sodium 129.0 mmol/L (136-145)
[2024-09-30] MEDS ORDERED: SODIUM PHOSPHATE 3 MMOL/1 ML INFUSION IV STA (04:56)
[2024-09-30] MEDS: ALBUT/IPRATROP 3MG/0.5MG NEB 3 ML VIAL NEB PRN (05:03)
[2024-09-30] MEDS: SODIUM PHOSPHATE 9 MMOL in SODIUM CHLORIDE 0.9% 250 ML IV ONE (05:16)
[2024-09-30] MEDS: POTASSIUM CHLORIDE / WTR 10 MEQ/100 ML PLCT IV SCH ×2 (05:16→16:27)
[2024-09-30] MEDS: POTASSIUM CHLORIDE CRTAB 20 MEQ TABCR PO STA (05:16)
[2024-09-30] MEDS ORDERED: MIDAZOLAM HCL 5 MG/ML 2ML VIAL IV ONE (06:25)
[2024-09-30] MEDS ORDERED: ETOMIDATE 2 MG/ML 20 ML VIAL IV ONE (06:25)
[2024-09-30] MEDS ORDERED: ROCURONIUM BROMIDE 10 MG/ML 5 ML VIAL IV ONE (06:25)
[2024-09-30] MEDS ORDERED: FORMOTEROL 20 MCG/2 ML VIAL NEB SCH (07:00)
[2024-09-30] MEDS: BUDESONIDE 0.25 MG/2 ML VIAL (PULMICORT) NEB SCH (07:20)
--- NOTE | 2024-09-30 07:31 | Pharmacy Report ---
Pharmacy PK ABX Note - Date of Service September 30, 2024 - Assessment and Plan Assessment 09/30: * Day #2 of abx. SCr improved, down to 0.74 mg/dL this AM. Procal worsening, 29 ng/mL today. Cultures still pending. * Given improvement in renal function and positive MRSA nasal swab, will e mpirically increase vancomycin dose today. 09/29: 64 year old M receiving Vancomycin, Azithromycin, and Ceftriaxone for treatment of empiric sepsis likely from a pulmonary source. * Day #1 of antimicrobial therapy. History of COPD and BMI > 40. * Afebrile. No leukocytosis. SCr 1.16 mg/dL today, unknown baseline. Lactate and procalcitonin elevated. * Blood cultures and MRSA nasal swab pending. Plan Vancomycin * Increase maintenance dose to 1500 mg IV every 12 hours * Regimen is predicted to achieve target AUC/BEV of 400-600 mg/L.hr * Level ordered for 10/01/24 Pharmacy will continue to follow and will adjust dose/frequency as necessary. Thank you. Pharmacy has transitioned to AUC monitoring for vancomycin. AUC/BEV is the preferred PK/PD target and is associated with decreased risk of nephrotoxicity compared to traditional trough targets.
--- NOTE | 2024-09-30 07:50 | XRay Report ---
EXAM: XR chest 1V portable CLINICAL HISTORY: resp failure TECHNIQUE: An X-ray image of the chest is obtained in AP projection. 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 Rest of both lungs are clear. Heart and Mediastinum: Heart size and shape are normal. No mediastinal widening or masses. No hilar or mediastinal lymphadenopathy. Bony Thorax: Bony thorax appears intact without fractures or deformities. Soft Tissues: Soft tissues overlying the chest wall are unremarkable. IMPRESSION: Airspace opacities noted involving right middle and lower zones - suggestive of consolidation.- Interval increase compared to prior study. Electronically signed by Mazin Villaseñor 09-30-2024 07:50 AM
--- NOTE | 2024-09-30 08:02 | Critical Care Progress Note ---
Date of Service September 30, 2024 Assessment & Plan (1) Pneumonia: (2) Pleural effusion: (3) Acute hypoxemic respiratory failure: (4) Thrombocytopenia: (5) Airway intubation performed without difficulty: (6) History of tobacco abuse: (7) Respiratory failure: (8) COPD (chronic obstructive pulmonary disease) with emphysema: (9) Severe sepsis: (10) Acute non-ST elevation myocardial infarction (NSTEMI): (11) Alcohol withdrawal delirium: Plan Impression: 64-year-old male with severe obstructive lung disease at baseline admitted with multifocal pneumonia and hypoxemic respiratory failure with concomitant lactic acidosis. Lactate is improved with IV fluids. He is currently on antibiotics. He was placed on noninvasive positive pressure ventilation admitted to the ICU. Recommendations: Neurologic: Propofol and fentanyl for ICU sedation -- CT scan showed questionable cerebellar infarct. He does not have signs and symptoms of a cerebellar stroke -- Acute alcohol withdrawal History of heavy alcohol use Cardiovascular: -- Elevated troponins Likely type II [place] Continue to trend --Hypertension On losartan at home --Prolonged QTc Avoid QT prolonging medication Continue to monitor Respiratory: CTA chest 09/29/2024 personally reviewed: Centrilobular and paraseptal emphysema appreciated bilaterally Dense consolidative process appreciated in the right upper lobe as well as right middle lobe Minimal right-sided pleural effusion No significant mediastinal lymphadenopathy -- VDRF Intubated 09/30/2024 Likely secondary to multifocal pneumonia Follow-up bronc cultures from 09/30/2024 Continue with ventilatory support Keep RASS -1 Daily sedation holidays and SBT's Nasal MRSA negative Continue broad-spectrum antibiotics On steroids for severe pneumonia -- COPD with emphysema On Trelegy 100 at home Continue with nebulized budesonide and Perforomist GI: -- Occult blood positive Monitor H&H -- Mild transaminitis Continue to trend Renal: Monitor BUN/creatinine Avoid nephrotoxic medication Endocrine: ICU hypoglycemia protocol ID: --Severe multifocal community-acquired pneumonia Procalcitonin 29.2 MRSA positive QTc 530 The patient is currently receiving Rocephin, azithromycin, and vancomycin. Vancomycin can be discontinued if MRSA of the nares are negative. He is not been on antibiotics or had risk factors for MRSA that I can identify. Given the severity of his illness, concomitant steroids for severe community-acquired pneumonia seems reasonable. Check Legionella urinary antigen. Follow-up blood cultures Heme-onc: --New onset thrombocytopenia Likely secondary to sepsis versus antibiotics Continue to trend --Prophylaxis VTE: IPC's, Lovenox on Hold GI: Pantoprazole Lines:Peripheral Diet: N.p.o. Plan: In/out: +5.5 L, urine output 3.6 L Patient unfortunately need to be intubated because of ventilatory failure Potassium as well as phosphorus is being replaced. Will repeat the blood work later in the afternoon QTc is prolonged, will need to be monitored the QTc after replacing the electrolytes. Continue with broad-spectrum antibiotics Given the history of alcohol use, high-dose thiamine along with folic acid Given the occult blood positive, will hold Lovenox Monitor H&H Continue to trend platelets. Will change Solu-Medrol to hydrocortisone. Will start the patient on tube feeds I have personally spent 62 minutes of critical care time in the direct management of this patient. This is a life/limb threatening event. This includes time spent evaluating patient, direct bedside care, chart review, placing orders, interpretation of diagnostic studies, discussion with consultants, patient, and family members, as well as other required patient management activities. This time is exclusive of all separately billable procedures, and teaching time and separate from and in addition to any other critical care service time. Please note the above document was generated using voice recognition software. It may contain grammatical, syntax or spelling errors. Admission and Anticipated Discharge Date Admission Date: September 29, 2024 Subjective Patient seen and examined at bedside. Was in respiratory distress Denied any chest pain, no nausea or vomiting He was saturating 92% on 15 L high flow He did state that he is feeling that he is withdrawing because he drinks alcohol on a regular basis and it has been 4 days without beer He denies hearing anything unusual, feeling anything unusual. Review of Systems 2 Review of Systems: All systems reviewed & are unremarkable except as noted in Subjective Physical Exam 2 Physical Exam: Constitutional: In respiratory distress HEENT: EOMI, PERRLA Respiratory system: Decreased air entry bilaterally, minimal expiratory wheeze on the left side, no rhonchi, positive crackles bilaterally CVS: S1-S2 positive, no murmurs or gallops, tachycardia Abdomen: Soft, nontender, nondistended, positive bowel sounds x4, obese Extremities: +2 pulses bilaterally radialis/ dorsalis pedis, no cyanosis, no edema Neuro: Awake alert oriented x3 Psych: Restless mood and affect G/U: Positive [place] Skin: no rashes, warm and dry Lymphatic: no cervical or axillary lymphadenopathy Results & Data Results & Data Vital Signs (Past 12 Hours) Vital Signs Temp Pulse Pulse Resp BP Pulse Ox O2 Del Method 09/30/24 07:32 92 High Flow Nasal Cannula 09/30/24 07:32 87 L High Flow Nasal Cannula 09/30/24 07:27 144 H 21 98/77 L 91 High Flow Nasal Cannula 09/30/24 07:00 37.1 C 09/30/24 05:06 140 H 34 H 92 Nasal Cannula 09/30/24 05:00 121/83 09/30/24 04:57 138 H 38 H 88 L 09/30/24 04:06 121 H 18 124/90 90 09/30/24 03:54 135 H 33 H 91 09/30/24 03:09 133 H 28 H 95 09/30/24 03:01 134/93 09/30/24 02:46 126 H 35 H 96 Nasal Cannula 09/30/24 02:15 128 H 26 H 94 09/30/24 02:15 126 H 18 94 09/30/24 02:00 133 H 32 H 129/75 93 09/30/24 01:03 128 H 25 H 114/79 94 09/30/24 00:51 129 H 30 H 94 09/30/24 00:35 36.7 C 09/30/24 00:06 122 H 30 H 126/79 96 09/30/24 00:00 121 H 09/29/24 23:48 120 H 29 H 95 09/29/24 23:33 31 H 121/84 85 L 09/29/24 23:18 112 H 25 H 96 09/29/24 23:06 111 H 27 H 96 09/29/24 22:36 110 H 26 H 96 09/29/24 22:30 100/69 09/29/24 22:15 112 H 26 H 95 09/29/24 22:09 108 H 25 H 95 09/29/24 22:00 103/63 09/29/24 21:54 114 H 25 H 95 09/29/24 21:30 108 H 28 H 100/67 87 L 09/29/24 21:12 108 H 25 H 94 09/29/24 21:00 102/66 09/29/24 20:54 107 H 27 H 92 09/29/24 20:33 115 H 24 88/59 L 92 09/29/24 20:27 108 H 26 H 92 09/29/24 20:00 102 H 26 H 92/62 L 91 O2 Flow Rate 09/30/24 07:32 15 09/30/24 07:32 11 09/30/24 07:27 15 09/30/24 07:00 09/30/24 05:06 5 09/30/24 05:00 09/30/24 04:57 09/30/24 04:06 09/30/24 03:54 09/30/24 03:09 09/30/24 03:01 09/30/24 02:46 4 09/30/24 02:15 09/30/24 02:15 4 09/30/24 02:00 09/30/24 01:03 09/30/24 00:51 09/30/24 00:35 09/30/24 00:06 09/30/24 00:00 09/29/24 23:48 09/29/24 23:33 09/29/24 23:18 09/29/24 23:06 09/29/24 22:36 09/29/24 22:30 09/29/24 22:15 09/29/24 22:09 09/29/24 22:00 09/29/24 21:54 09/29/24 21:30 09/29/24 21:12 09/29/24 21:00 09/29/24 20:54 09/29/24 20:33 09/29/24 20:27 09/29/24 20:00 Laboratory Results 09/30/24 04:08 09/30/24 04:08 Coding Level of Care Code 05773 CRITICAL CARE 1ST 30-74M Diagnoses Pneumonia J18.9 Pleural effusion J90 Acute hypoxemic respiratory failure J96.01 Thrombocytopenia D69.6 Airway intubation performed without difficulty Z78.9 History of tobacco abuse Z87.891 Respiratory failure J96.90 COPD (chronic obstructive pulmonary disease) with emphysema J43.9 Severe sepsis A41.9; R65.20 Acute non-ST elevation myocardial infarction (NSTEMI) I21.4 Alcohol withdrawal delirium F10.931
[2024-09-30] MEDS ORDERED: STAT IV Infusion **Titration per Protocol STA (08:16)
[2024-09-30] MEDS: fentaNYL citrate 2,500 MCG/250 ML BAG IV SCH (08:35)
--- NOTE | 2024-09-30 08:43 | Procedure Note ---
Procedure Note Date of Service September 30, 2024 INTUBATION PROCEDURE NOTE: Attending: Dr Isela Cavanaugh MD Patient was evaluated and plan to intubate was made for ventilatory failure. Sedative agent used: 2 mg of midazolam, 25 mg of etomidate Paralysis agent used: 60 mg of rocuronium, 10 more milligrams of rocuronium was given after intubation Emergent consent was implied given patients rapidly declining clinical status and need for airway protection. Verbal consent was also obtained from the patient prior to intubation The patient was prepared in the appropriate fashion. The patient was easily pre-oxygenated by using [id number] ventilation. With help of CMAC grade 1 vocal cords were visualized and 7.5 Maltese ETT was introduced on first attempt to 25 cm at the lip. The stylette was removed and balloon was inflated with 10mL of air. Appropriate Colorimetric change was appreciated for at least 10 breaths. Bilateral chest rise and breath sounds were appreciated without air sounds in the epigastrium. Patient tolerated the procedure well and there were no immediate complications. Chest Xray to follow for confirming placement. [facility] [place] Procedure Codes (Charges) Resuscitation Resuscitation: 62171 Endotracheal Intubation, emergency Coding CPT Codes Resuscitation - Resuscitation: 52980 Endotracheal Intubation, emergency ([id number]) Additional Codes Date of Service (PG.SURGERY)
--- NOTE | 2024-09-30 08:44 | Procedure Note ---
Procedure Note Date of Service September 30, 2024 PREOPERATIVE DIAGNOSIS: Multifocal pneumonia POSTOPERATIVE DIAGNOSIS: Multifocal pneumonia PROCEDURE PERFORMED: Flexible fiberoptic bronchoscopy with BAL COMPLICATIONS: None. INDICATION: Rule out indolent infections PROCEDURE: After obtaining a verbal consent, patient was already in the ICU. The patient had appropriate oxygen, blood pressure, heart rate, and respiratory rate monitoring applied and monitored continuously throughout the procedure. Patient was intubated just prior to the procedure. He was on 100% FiO2 and PEEP of 10 He was started on propofol and fentanyl. 20 mg of propofol and 50 mcg of fentanyl were given during the procedure The trachea appeared normal.The bronchoscope was then advanced through the kimberley, which was sharp. The scope was then advanced into the right main stem and each segment, subsegement in the right upper lobe, right middle lobe and right lower lobe were visualized. There was moderate amount of brown-red secretion in the right main which was suctioned out. There were no other findings including evidence of mass, anatomic distortions, or hemorrhage. The bronchoscope was subsequently withdrawn and advanced into the left mainstem. Again, each segment and subsegment was well visualized. No specific masses or other lesions were identified throughout the tracheobronchial tree on the left. There was minimal amount of clear secretion which was suctioned out. The bronchoscope was then wedged in the right middle lobe and bronchoalveolar lavage samples were obtained. 80 ml of saline was instilled and 40 ml of fluid was aspirated back.The bronchoscope was withdrawn and the area was suctioned clear. The bronchoscope was then withdrawn to the mainstem. The area was suctioned clear. The bronchoscope was then withdrawn. The patient tolerated the procedure well without evidence of desaturation or complications. Bronchoalveolar lavage samples were sent for cell count, Gram stain and bacterial culture, fungal culture and smear and cytology. Estimated blood loss: None Recommendations: Follow-up micro and cytology Follow-up chest x-ray Please note the above document was generated using voice recognition software. It may contain grammatical, syntax or spelling errors.Any formal questions or concerns about the content, text or information contained within the body of this dictation should be directly addressed to the provider for clarification. [facility] [place] Procedure Codes (Charges) Pulmonary/Thoracic Procedure 1: Pulmonary and Thoracic: 47475 Dx bronchoscopy/BAL Coding CPT Codes Pulmonary/Thoracic - Pulmonary and Thoracic: 48001 Dx bronchoscopy/BAL ([id number]) Additional Codes Date of Service (PG.SURGERY)
[2024-09-30] MEDS ORDERED: VANCOMYCIN HCL 2,000 MG in SODIUM CHLORIDE 0.9% 500 ML IV SCH (09:00)
[2024-09-30] MEDS ORDERED: Nursing to Pharmacy Communication SCH ×2 (09:15→12:30)
--- NOTE | 2024-09-30 09:17 | XRay Report ---
XR chest 1V portable CLINICAL HISTORY: Post Bronchoscopy COMPARISON STUDY: 09/30/2024 FINDINGS: Endotracheal tube tip is between the thoracic inlet and the kimberley. Nasogastric tube tip is off the field of view inferiorly. Heart size and pulmonary vasculature are normal. There is stable d ense consolidation at the right mid and lower lung. No pneumothorax seen. IMPRESSION: No pneumothorax seen. ACT 112: Negative or not required by law. Electronically signed by: Herman Brush M.D. 09/30/2024 9:16 AM
[2024-09-30] MEDS: THIAMINE HCL 500 MG in SODIUM CHLORIDE 0.9% 50 ML IV SCH (09:18)
--- NOTE | 2024-09-30 09:21 | XRay Report ---
KUB HISTORY: OGT plcmt COMPARISON STUDY: None FINDINGS: Orogastric tube tip is in the mid body of the stomach. There are a few mildly distended bow el loops at the visualized upper abdomen. IMPRESSION: Orogastric tube tip is in the body of the stomach. ACT 112: Negative or not required by law. The above report was generated using voice recognition software. It may contain grammatical, syntax o r spelling errors. Electronically signed by: Herman Brush M.D. 09/30/2024 9:19 AM
[2024-09-30] MEDS: NOREPINEPHRINE/D5W 4 MG/250 ML IV ONE (09:55)
[2024-09-30] MEDS: PROPOFOL IV EMULSION 10 MG/ML 100 ML VIAL IV ONE (09:55)
[2024-09-30] MEDS: fentaNYL citrate 2,500 MCG/250 ML BAG IV ONE (09:55)
[2024-09-30] MEDS: ASPIRIN 81 MG ECTAB PO SCH (09:56)
[2024-09-30 10:01] LABS: Fluid Mono/Macrophage 15 %; Lymphocyte Body Fluid Man 2 %; Neutrophil Body Fluid Man 83 %
[2024-09-30] MEDS: RAPID SEQUENCE INDUCTION BAG ONE (10:06)
[2024-09-30] MEDS: FOLIC ACID 1 MG in SYRINGE 9.8 ML IV SCH (10:06)
[2024-09-30] MEDS: cefTRIAXone SODIUM 2,000 MG/50 ML BAG IV SCH (10:07)
[2024-09-30] MEDS: PANTOprazole 40 MG/10 ML SYR IV SCH (10:07)
[2024-09-30 10:18] LABS: iSTAT Art Bld Gas Base Excess -6.0 meg/L (-9-1.8)
[2024-09-30] MEDS ORDERED: cefTRIAXone SODIUM 1,000 MG/50 ML BAG IV SCH (11:00)
[2024-09-30] MEDS: TUBE FEEDING WATER FLUSH GT SCH (11:10)
[2024-09-30] MEDS: PEPTAMEN INTENSE VHP 1.0 CAL 1,000 ML BAG OG SCH (11:10)
[2024-09-30] MEDS: HYDROCORTISONE SOD 50 MG in SYRINGE 0 ML IV SCH (11:11)
[2024-09-30] MEDS: VANCOMYCIN HCL 1,500 MG in SODIUM CHLORIDE 0.9% 500 ML IV SCH (11:40)
[2024-09-30] MEDS: NOREPINEPHRINE/D5W 4 MG/250 ML PLCT IV SCH (12:13)
--- NOTE | 2024-09-30 12:13 | XCELERA ---
[id number] \\[id number]
--- NOTE | 2024-09-30 13:47 | Electrocardiogram Report ---
Test Reason : Blood Pressure : */* mmHG Vent. Rate : 161 BPM Atrial Rate : 161 BPM P-R Int : 142 ms QRS Dur : 84 ms QT Int : 272 ms P-R-T Axes : 77 71 51 degrees QTcB Int : 445 ms Poor data quality, interpretation may be adversely affected Sinus tachycardia with Premature supraventricular complexes and with occasional Premature ventricular complexes Septal infarct , age undetermined Abnormal ECG When compared with ECG of 12-Jun-2016 12:56, (RBBB and left posterior fascicular block) is no longer Present Septal infarct is now Present Confirmed by Wiliam Brewer ([id number]) on 09/30/2024 1:47:22 PM Referred By: Confirmed By: Wiliam Brewer
--- NOTE | 2024-09-30 13:57 | Hospitalist Progress Note ---
Date of Service September 30, 2024 Assessment & Plan (1) Hypokalemia: (2) Acute exacerbation of chronic obstructive pulmonary disease: (3) Respiratory failure: (4) COPD (chronic obstructive pulmonary disease) with emphysema: (5) Hypertension: (6) Acute hyponatremia: (7) Acute non-ST elevation myocardial infarction (NSTEMI): (8) Fall: (9) Head injury: Plan This is a 64-year-old morbidly obese male with a history of COPD, hypertension who presents with severe respiratory distress, now on BiPAP. Chest x-ray showed pneumonia. He was given DuoNebs, steroids, ceftriaxone in the emergency room. Labs significant for lactic acidosis of 5, anion gap metabolic acidosis, hyponatremia, hypokalemia, elevated troponin, elevated procalcitonin. His blood pressure dropped while in the ER. 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 Also on vancomycin since he became hypotensive in the emergency room and now MRSA nares positive He was hypotensive, tachycardic, tachypneic, with lactic acidosis of 5. Met criteria for severe sepsis Blood cultures obtained Monitor vitals in ICU Repeat lactic acid level came down to 3.3 Patient got fluid resuscitated per sepsis protocol Now on Solu-Cortef #Anion gap metabolic acidosis/lactic acidosis Most likely due to sepsis Improved/resolved #Hyponatremia/hypokalemia Improving Renal function is stable #Elevated troponin Patient does not complain of any chest pain EKG reviewed. No ST-T wave changes. Troponins went up higher overnight. Echocardiogram reviewed. Technically difficult study. Most likely demand ischemia due to hypoxia and tachycardia. Trend troponins #Subacute/chronic right cerebellar infarct CT head was done because the patient had a fall with head trauma last night. It showed a subacute/chronic right cerebellar infarct I will start the patient on a baby aspirin for now Stroke workup may be initiated once the patient has been stabilized An MRI will be considered at a later time #Hypertension Blood pressure is rather on the low side. Hold losartan #Alcohol withdrawal Per nurse, patient was starting to get delirious and was hallucinating Currently on propofol Thiamine added #COPD Budesonide twice daily added by real estate representative VTE prophylaxis: Lovenox Full code Admission and Anticipated Discharge Date Admission Date: September 29, 2024 Subjective Patient feels patient got intubated this morning due to respiratory failure. Patient had a bronchoscopy and biopsy done The is in the room and she informed the critical care team about his drinking habits. New concern for withdrawal Review of Systems Review of Systems: All systems reviewed & are unremarkable except as noted in Subjective Physical Exam Physical Exam: General: Morbidly obese patient. Currently intubated and sedated Heart: S1, S2/tachycardic, regular rhythm., no murmur rubs or gallops Lungs: Rhonchorous breath sounds heard bilaterally. Equal air entry bilaterally. Abdomen: Soft/nontender/nondistended. No hepatosplenomegaly Extremities: No clubbing/cyanosis. No edema Behavior: Unable to assess due to intubation and sedation Results & Data Results & Data Vital Signs (Past 12 Hours) Vital Signs Temp Pulse Pulse Resp BP Pulse Ox O2 Del Method 09/30/24 12:30 88/64 L 09/30/24 12:15 75/46 L 09/30/24 12:10 75/46 L 09/30/24 12:03 119 H 23 93 09/30/24 12:00 80/60 L 09/30/24 12:00 09/30/24 11:31 88/62 L 09/30/24 11:30 118 H 22 92 09/30/24 10:23 Mechanical Vent 09/30/24 10:17 23 09/30/24 10:01 113/74 09/30/24 10:00 137 H 23 89 L Mechanical Vent 09/30/24 09:21 28 H 09/30/24 09:00 139 H 22 105/78 92 Mechanical Vent 09/30/24 08:35 09/30/24 08:30 143 H 22 91 09/30/24 08:30 Mechanical Vent 09/30/24 08:25 18 144/88 H 88 L Mechanical Vent 09/30/24 08:00 134 H 09/30/24 07:32 92 High Flow Nasal Cannula 09/30/24 07:32 87 L High Flow Nasal Cannula 09/30/24 07:27 144 H 21 98/77 L 91 High Flow Nasal Cannula 09/30/24 07:00 37.1 C 09/30/24 05:06 140 H 34 H 92 Nasal Cannula 09/30/24 05:00 121/83 09/30/24 04:57 138 H 38 H 88 L 09/30/24 04:06 121 H 18 124/90 90 09/30/24 03:54 135 H 33 H 91 09/30/24 03:09 133 H 28 H 95 09/30/24 03:01 134/93 09/30/24 02:46 126 H 35 H 96 Nasal Cannula 09/30/24 02:15 128 H 26 H 94 09/30/24 02:15 126 H 18 94 09/30/24 02:00 133 H 32 H 129/75 93 O2 Flow Rate FiO2 09/30/24 12:30 09/30/24 12:15 09/30/24 12:10 09/30/24 12:03 09/30/24 12:00 09/30/24 12:00 80 09/30/24 11:31 09/30/24 11:30 09/30/24 10:23 09/30/24 10:17 80 09/30/24 10:01 09/30/24 10:00 80 09/30/24 09:21 100 09/30/24 09:00 100 09/30/24 08:35 100 09/30/24 08:30 09/30/24 08:30 100 09/30/24 08:25 100 09/30/24 08:00 09/30/24 07:32 15 09/30/24 07:32 11 09/30/24 07:27 15 09/30/24 07:00 09/30/24 05:06 5 09/30/24 05:00 09/30/24 04:57 09/30/24 04:06 09/30/24 03:54 09/30/24 03:09 09/30/24 03:01 09/30/24 02:46 4 09/30/24 02:15 09/30/24 02:15 4 09/30/24 02:00 Laboratory Results Abnormal lab results 09/29/24 09/29/24 09/29/24 Range/Units 11:08 13:44 15:10 RBC (4.70-6.10) M/uL Hgb (14.0-18.0) g/dl POC Hgb (14.0-18.0) g/dl Hct (42.0-52.0) % POC Hct (42-52) % Plt Count (130-400) K/uL POC pH (7.35-7.45) POC pCO2 (35-46) mmHg POC pO2 (80-95) mmHg POC Total CO2 (24-31) mmol/L POC ABG O2 Sat (90-95) % POC Sodium (135-144) mmol/L Sodium (136-145) mmol/L Potassium (3.5-5.1) mmol/L Chloride (98-107) mmol/L Carbon Dioxide (21-32) mmol/L Glucose (70-99(Fasting)) mg/dl POC Glucose (70-99) mg/dl Osmolality 257 L (280-300) mOsm/kg Lactate 3.3 H* (0.4-2.0) mmol/L Calcium (8.6-10.3) mg/dl Phosphorus (2.5-4.9) mg/dl Magnesium (1.7-2.4) mg/dl AST (13-39) U/L Troponin I High Sens 798.0 H* D (0-20) pg/ml B-Natriuretic Peptide (0-100) pg/ml Total Protein (6.0-8.3) gm/dl Albumin (3.4-5.0) gm/dl Procalcitonin (0-0.5) ng/ml Urine Osmolality (500-800) mOsm/kg Nasal Screen MRSA (PCR) Positive A (Negative) Stool Occult Bld Scrn (Negative) 09/29/24 09/29/24 09/29/24 Range/Units 15:50 16:48 19:43 RBC (4.70-6.10) M/uL Hgb (14.0-18.0) g/dl POC Hgb (14.0-18.0) g/dl Hct (42.0-52.0) % POC Hct (42-52) % Plt Count (130-400) K/uL POC pH (7.35-7.45) POC pCO2 (35-46) mmHg POC pO2 (80-95) mmHg POC Total CO2 (24-31) mmol/L POC ABG O2 Sat (90-95) % POC Sodium (135-144) mmol/L Sodium 126 L (136-145) mmol/L Potassium 2.6 L (3.5-5.1) mmol/L Chloride 96 L (98-107) mmol/L Carbon Dioxide 19 L (21-32) mmol/L Glucose 154 H (70-99(Fasting)) mg/dl POC Glucose (70-99) mg/dl Osmolality (280-300) mOsm/kg Lactate (0.4-2.0) mmol/L Calcium 7.0 L (8.6-10.3) mg/dl Phosphorus 1.8 L (2.5-4.9) mg/dl Magnesium 1.3 L (1.7-2.4) mg/dl AST 103 H (13-39) U/L Troponin I High Sens 1032.8 H* D (0-20) pg/ml B-Natriuretic Peptide 605 H (0-100) pg/ml Total Protein 5.8 L (6.0-8.3) gm/dl Albumin 2.9 L (3.4-5.0) gm/dl Procalcitonin (0-0.5) ng/ml Urine Osmolality 409 L (500-800) mOsm/kg Nasal Screen MRSA (PCR) (Negative) Stool Occult Bld Scrn (Negative) 09/29/24 09/30/24 09/30/24 Range/Units 23:54 01:30 04:08 RBC 4.34 L (4.70-6.10) M/uL Hgb 13.9 L (14.0-18.0) g/dl POC Hgb (14.0-18.0) g/dl Hct 39.8 L (42.0-52.0) % POC Hct (42-52) % Plt Count 105 L (130-400) K/uL POC pH (7.35-7.45) POC pCO2 (35-46) mmHg POC pO2 (80-95) mmHg POC Total CO2 (24-31) mmol/L POC ABG O2 Sat (90-95) % POC Sodium (135-144) mmol/L Sodium 129 L (136-145) mmol/L Potassium 3.0 L (3.5-5.1) mmol/L Chloride 97 L (98-107) mmol/L Carbon Dioxide (21-32) mmol/L Glucose 147 H (70-99(Fasting)) mg/dl POC Glucose 137 H (70-99) mg/dl Osmolality (280-300) mOsm/kg Lactate (0.4-2.0) mmol/L Calcium 7.4 L (8.6-10.3) mg/dl Phosphorus 2.0 L (2.5-4.9) mg/dl Magnesium (1.7-2.4) mg/dl AST (13-39) U/L Troponin I High Sens 530.2 H* D (0-20) pg/ml B-Natriuretic Peptide (0-100) pg/ml Total Protein (6.0-8.3) gm/dl Albumin (3.4-5.0) gm/dl Procalcitonin 29.20 H (0-0.5) ng/ml Urine Osmolality (500-800) mOsm/kg Nasal Screen MRSA (PCR) (Negative) Stool Occult Bld Scrn (Negative) 09/30/24 09/30/24 09/30/24 Range/Units 07:00 10:06 12:00 RBC (4.70-6.10) M/uL Hgb (14.0-18.0) g/dl POC Hgb 13.6 L (14.0-18.0) g/dl Hct (42.0-52.0) % POC Hct 40 L (42-52) % Plt Count (130-400) K/uL POC pH 7.26 L (7.35-7.45) POC pCO2 49 H (35-46) mmHg POC pO2 111 H (80-95) mmHg POC Total CO2 23 L (24-31) mmol/L POC ABG O2 Sat 97.0 H (90-95) % POC Sodium 131 L (135-144) mmol/L Sodium (136-145) mmol/L Potassium (3.5-5.1) mmol/L Chloride (98-107) mmol/L Carbon Dioxide (21-32) mmol/L Glucose (70-99(Fasting)) mg/dl POC Glucose 171 H (70-99) mg/dl Osmolality (280-300) mOsm/kg Lactate (0.4-2.0) mmol/L Calcium (8.6-10.3) mg/dl Phosphorus (2.5-4.9) mg/dl Magnesium (1.7-2.4) mg/dl AST (13-39) U/L Troponin I High Sens (0-20) pg/ml B-Natriuretic Peptide (0-100) pg/ml Total Protein (6.0-8.3) gm/dl Albumin (3.4-5.0) gm/dl Procalcitonin (0-0.5) ng/ml Urine Osmolality (500-800) mOsm/kg Nasal Screen MRSA (PCR) (Negative) Stool Occult Bld Scrn Positive A (Negative) PG Care Time/CCT Total # of Minutes Spent Total Time Spent with Patient: Total time spent is greater than 50% in coordination of care (as documented) at patient's floor/unit and/or counseling patient: Coding Level of Care Code 12203 SUB INP/OBS CARE 2/35MIN Diagnoses Hypokalemia E87.6 Acute exacerbation of chronic obstructive pulmonary disease J44.1 Respiratory failure J96.90 COPD (chronic obstructive pulmonary disease) with emphysema J43.9 Hypertension I10 Acute hyponatremia E87.1 Acute non-ST elevation myocardial infarction (NSTEMI) I21.4 Fall W19.XXXA Head injury S09.90XA
[2024-09-30] MEDS: LEVALBUTEROL 1.25 MG/3 ML NEB NEB SCH (14:47)
[2024-09-30 15:06] LABS: Hematocrit (blood only) 40.5 % (42.0-52.0); Hemoglobin 13.9 g/dl (14.0-18.0)
[2024-09-30 15:23] LABS: Anion Gap 9.0 (3-11); Blood Urea Nitrogen 22.0 mg/dl (6-23); Calcium 7.2 mg/dl (8.6-10.3); Carbon Dioxide 21.0 mmol/L (21-32); Chloride 101.0 mmol/L (98-107); Creatinine Clr Calc Pharmacy 111.7 ml/min; Glucose 174.0 mg/dl (70-99(Fasting)); Magnesium 2.3 mg/dl (1.7-2.4); Potassium 3.7 mmol/L (3.5-5.1); Sodium 131.0 mmol/L (136-145)
[2024-09-30] MEDS: PROPOFOL BOLUS FROM BAG IV PRN (15:26)
--- NOTE | 2024-09-30 15:31 | Electrocardiogram Report ---
Test Reason : Blood Pressure : */* mmHG Vent. Rate : 110 BPM Atrial Rate : 110 BPM P-R Int : 166 ms QRS Dur : 100 ms QT Int : 372 ms P-R-T Axes : 46 57 51 degrees QTcB Int : 503 ms Sinus tachycardia Low voltage QRS Prolonged QT Abnormal ECG When compared with ECG of 29-Sep-2024 11:13, (unconfirmed) HR has decreased Premature ventricular complexes are no longer Present Premature supraventricular complexes are no longer Present Confirmed by Wiliam Brewer ([id number]) on 09/30/2024 3:31:14 PM Referred By: REFERRED SELF Confirmed By: Wiliam Brewer
--- NOTE | 2024-09-30 15:46 | Electrocardiogram Report ---
Test Reason : Blood Pressure : */* mmHG Vent. Rate : 144 BPM Atrial Rate : 144 BPM P-R Int : 164 ms QRS Dur : 94 ms QT Int : 270 ms P-R-T Axes : 41 67 66 degrees QTcB Int : 418 ms Atrial fibrillation with premature ventricular or aberrantly conducted complexes Septal infarct , age undetermined Abnormal ECG When compared with ECG of 29-Sep-2024 20:38, (unconfirmed) Atrial fibrillation is now Present Confirmed by Wiliam Brewer ([id number]) on 09/30/2024 3:45:54 PM Referred By: REFERRED SELF Confirmed By: Wiliam Brewer
[2024-09-30] MEDS: ACETAMINOPHEN 1,000 MG/100 ML VIAL IV PRN (19:30)
[2024-09-30] MEDS: GADOBUTROL 65ML VIAL IV ONE (22:14)
--- NOTE | 2024-09-30 22:54 | Procedure Note ---
Procedure Note Date of Service September 30, 2024 INTERNAL JUGULAR CENTRAL LINE PROCEDURE NOTE: Procedure: Internal Jugular Central Line Placement Proceduralist: Saqib KOO ([facility]-) Attending: Dr. Cavanaugh Indication: Central Drug Administration, Poor Venous Access, Multiple Lab Draws Necessary, etc. Anesthesia: [x]Lidocaine 1% Emergent Consent was implied as patient is FULL CODE, intubated and sedated, with increasing vasopressor requirements and hemodynamic instability. A time-out was completed verifying correct patient, procedure, site, positioning, special equipment if applicable. LEFT IJ was scouted for appropriate target and positioning. Once appopriate target was identified, the Patients LEFT Neck was cleansed and draped in the typical sterile fashion using Chloraprep. The Internal Jugular Vein and Carotid Artery were again identified using ultrasound. The superficial tissue was anesthetized using 6 mL of 1% lidocaine without epinephrine under direct visualization with the ultrasound. After adequate anesthetization was achieved, the Internal Jugular vein was cannulated under direct ultrasound guidance using an introducer needle on a syringe. Good venous blood return was maintained prior to removal of syringe from introducer needle. Using Seldinger Technique, a guide wire was advanced through the introducer needle without resistance. The introducer needle was removed and ultrasound images were obtained of the guide wire within the Internal Jugular Vein and saved to the patients medical record. A small incision was made in penetrating fashion at the guide wire insertion site utilizing an 11 blade scalpel. The dilator was advanced to the vessel without resistance. The dilator was exchanged for the triple lumen catheter which was advanced into the vessel without resistance. The guide wire was removed intact from the catheter without issue. Claves were placed on each catheter tip with confirmation of good blood flow from each lumen. Each port was easily flushed with sterile saline. The catheter was placed at 20 cm and sutured in place. BioPatch was applied to the catheter and a sterile Tegaderm dressing was applied over the catheter with careful attention to sterility. Patient tolerated procedure well. No immediate complications were met. Post procedure x-ray was completed, placement was appropriate and no pneumothorax was noted. Images obtained are NOT saved for permanent record as this was urgent Images obtained are saved for permanent record. [facility] [place] Codes (Charges) Tubes, Drains, and Vasc Access Procedure 1: Tubes, Drains, and Vasc Access: [id number] Insertion Of Non-tunneled Catheter Age 6 Yrs> Coding CPT Codes Tubes, Drains, and Vasc Access - Tubes, Drains, and Vasc Access: [id number] Insertion Of Non-tunneled Catheter Age 6 Yrs> ([id number]) Additional Codes Date of Service ([facility].SURGERY)
[2024-09-30] MEDS: MIDAZOLAM HCL 1 MG/ML 2ML VIAL IV STA (22:59)
[2024-09-30] MEDS: MIDAZOLAM HCL 1 MG/ML 2ML VIAL ONE (23:49)
--- NOTE | 2024-09-30 23:56 | Magnetic Resonance Report ---
Exam(s): MRI HEAD W/WO Contrast IV Amt: 13ml gadavist EXAM: MR Head Without and With Intravenous Contrast CLINICAL HISTORY: Reason for exam: f/u CT scan. TECHNIQUE: Magnetic resonance images of the head/brain without and with intravenous contrast in multiple planes. CONTRAST: Patient received 13ml gadavist of IV contrast COMPARISON: CT head 09/29/2024 FINDINGS: Brain: Chronic right cerebellar infarct. No diffusion restriction to suggest acute cerebral ischemia. Parenchymal volume normal for age. Scattered foci of FLAIR signal hyperintensity within the cerebral white matter in keeping with minimal chronic small-vessel ischemic change. No evidence of intracranial mass. Ventricles: Unremarkable. No hydrocephalus. Bones/joints: Old right-sided craniotomy with minimal subjacent encephalomalacia right parietal lobe. Proximal intracranial flow voids appear normal. No acute fracture. Soft tissues: Unremarkable. No abnormal enhancement. Sinuses: Unremarkable as visualized. Mastoid air cells: Unremarkable as visualized. No mastoid effusion. Orbits: Unremarkable as visualized. IMPRESSION: 1. No diffusion restriction to suggest acute cerebral ischemia. 2. No evidence of intracranial mass. 3. Chronic right cerebellar infarct. Electronically signed by: Zack Aponte M.D. 09/30/24 23:55 PM
--- NOTE | 2024-10-01 00:01 | XRay Report ---
Exam(s): XR CXR 1 VIEW EXAM: XR Chest, 1 View CLINICAL HISTORY: Reason for exam: eval line placement for CVL LT IJ. TECHNIQUE: Frontal view of the chest. COMPARISON: 09/30/2024 at 0847 hours FINDINGS: Lungs: Stable dense consolidation right lower lung. Pleural space: Right pleural effusion not excluded. No left pleural effusion. No pneumothorax. Heart: Stable heart size. Bones/joints: No acute fracture. No dislocation. Tubes, lines and devices: Endotracheal tube 3 cm from the kimberley. Left IJ CVC with tip in the SVC. Enteric tube extends to the stomach and beyond the [id number]. IMPRESSION: 1. Stable dense consolidation right lower lung. 2. Endotracheal tube 3 cm from the kimberley. Left IJ CVC with tip in the SVC. Enteric tube extends to the stomach and beyond the [id number]. Electronically signed by: Zack Aponte M.D. 10/01/24 00:00 AM
[2024-10-01] MEDS: METOPROLOL TARTRATE 1 MG/ML VIAL IV STA (00:06)
[2024-10-01] MEDS: Nursing to Pharmacy Communication SCH (00:07)
[2024-10-01 00:14] LABS: Anion Gap 9.0 (3-11); Blood Urea Nitrogen 29.0 mg/dl (6-23); Calcium 7.3 mg/dl (8.6-10.3); Carbon Dioxide 21.0 mmol/L (21-32); Chloride 99.0 mmol/L (98-107); Creatinine Clr Calc Pharmacy 78.4 ml/min; Glucose 215.0 mg/dl (70-99(Fasting)); Magnesium 2.3 mg/dl (1.7-2.4); Potassium 4.1 mmol/L (3.5-5.1); Sodium 129.0 mmol/L (136-145)
--- NOTE | 2024-10-01 00:14 | Communication Note ---
Date of Service: October 01, 2024 Patient returned from MRI- has had increasing vasopressor requirements as the night has progressed as well as now in afib with RVT with HR 130-150s. He is also diaphoretic and febrile again requiring ice pack and tyelnol. - With his afib- will attempt BB and if no improvement in rates or rhythm, will place on amiodarone - Will also place on heparin infusion if he continues to remain in afib- CHADSVASC2- high risk 5.9% - Will provide dose of midazolam for possible ETOH withdrawl also influencing the above - 500 ml plasmalyte volume challenge in light of insensible losses with febrility, tachypnea, and tachycardia - BMP now and replete electrolytes - ECG with afib RVR, no STEMI noted - CVL will be placed with increasing vasopressor requirements - Arterial line will be considered pending hemodyanmic response as well as oxygenation needs- will try to wean PEEP and FIo2 Saqib KOO ([facility]-)
[2024-10-01] MEDS ORDERED: GLUCOSE 40% GEL 15 GM TUBE PO PRN ×2 (00:19→00:32)
[2024-10-01] MEDS ORDERED: CARBOHYDRATES FOR HYPOGLYCEMIA PO PRN ×2 (00:19→00:32)
[2024-10-01] MEDS ORDERED: GLUCAGON FOR INJ 1 MG VIAL SQ PRN ×2 (00:19→00:32)
[2024-10-01] MEDS ORDERED: DEXTROSE 50% 50 ML SYRINGE IV PRN ×2 (00:19→00:32)
[2024-10-01] MEDS ORDERED: GLUCOSE 10 TAB/TUBE PO PRN ×2 (00:19→00:32)
[2024-10-01] MEDS ORDERED: STAT IV Infusion **Titration per Protocol STA ×4 (00:33→07:40)
[2024-10-01] MEDS: VASOPRESSIN 20 UNITS in SODIUM CHLORIDE 0.9% 100 ML IV SCH (00:47)
[2024-10-01] MEDS: INSULIN ASPART PER UNIT CHARGE SC SCH ×2 (00:52→07:28)
[2024-10-01 00:53] LABS: INR 1.0 (0.9-1.1); Partial Thromboplastin Time 29 Seconds (21-31); Prothrombin Time 10.6 Seconds (9.0-12.0)
[2024-10-01] MEDS ORDERED: 0.2 MICRON FILTER SET 1 EACH IV STA (01:43)
[2024-10-01] MEDS ORDERED: AMIODARONE IV BOLUS & DRIP IV STA (01:43)
[2024-10-01] MEDS ORDERED: Heparin IV Adult Wt-Based Low-Dose *NO* INITIAL Bolus Protocol IV STA (01:43)
--- NOTE | 2024-10-01 01:43 | Procedure Note ---
Procedure Note Date of Service October 01, 2024 ARTERIAL LINE PROCEDURE NOTE: Procedure: Arterial Line Placement Proceduralist: Saqib KOO ([facility]-) Attending: Dr. Cavanaugh Indication: Monitoring on Pressors Anesthesia: [x]Lidocaine 1% Emergent Consent was implied as patient is FULL CODE and with increasing vasopressor requirements requiring continuous monitoring. Benefits outweigh risks at this point in time. A time-out was completed verifying correct patient, procedure, site, positioning, or special equipment if applicable. Allens test was performed to ensure adequate perfusion. Patients LEFT wrist was prepped and draped in the usual sterile fashion. Ultrasound guidance was used to aid needle placement. A 20g Arrow arterial line was introduced into the LEFT RADIAL artery x1 attempt, brisk flash of blood was noted. The wire was advanced without resistance and catheter was threaded. The needle was removed with appropriate blood return. Good waveform was observed. The line was sutured in place. The patient tolerated the procedure well and no complications were immediately noticed. Blood Loss: Minimal Complications: None Artery Identified: YES Line confirmed in Artery with ultrasound: YES Complications: NONE immediate Failed attempt on right: See below. Patient tolerated procedure: WELL Same procedure on opposite wrist: A time-out was completed verifying correct patient, procedure, site, positioning, or special equipment if applicable. Allens test was performed to ensure adequate perfusion. Patients RIGHT wrist was prepped and draped in the usual sterile fashion. Ultrasound guidance was used to aid needle placement. A 20g Arrow arterial line was introduced into the RIGHT RADIAL artery x2 attempts, brisk flash of blood was noted. The wire was advanced without resistance and catheter was threaded, however when the needle was removed was unable to maintain adequate flow. The catheter was withdrawn 3 attempts with adequate blood flow and the wire was advanced again without resistance and the catheter was again advanced, however remained without good pulsatile flow. This occurred on both right radial attempts. For this reason the RIGHT RADIAL site was aborted and moved to the left as above. Pressure dressing was placed. [facility] Procedure Codes (Charges) Tubes, Drains, and Vasc Access Procedure 1: Tubes, Drains, and Vasc Access: [id number] Arterial Cath/Cannulation Sampling/Monitoring/Transfusion Coding CPT Codes Tubes, Drains, and Vasc Access - Tubes, Drains, and Vasc Access: [id number] Arterial Cath/Cannulation Sampling/Monitoring/Transfusion ([id number]) Additional Codes Date of Service ([facility].SURGERY)
[2024-10-01] MEDS: AMIODARONE / D5W 150 MG/100 ML BAG IV STA (02:03)
[2024-10-01] MEDS: AMIODARONE / D5W 360 MG/200 ML BAG IV ONE (02:14)
[2024-10-01] MEDS: HEPARIN 25000 UNIT/500 ML D5W 25,000 UNITS/500 ML BAG IV SCH (02:18)
[2024-10-01] MEDS: PIPERACILLIN/TAZOBACTAM 4.5 GM/100 ML BAG IV ONE (02:21)
[2024-10-01] MEDS: PLASMA-LYTE A 500 ML IV ONE (02:56)
[2024-10-01] MEDS: MAX Conc; 16mg in 250mL IV SCH (04:12)
[2024-10-01] MEDS: Concentrate Norepinephrine IV Infusion ONE (04:18)
[2024-10-01 04:54] LABS: iSTAT Art Bld Gas Base Excess -10.0 meg/L (-9-1.8)
[2024-10-01 05:05] LABS: Hematocrit (blood only) 40.4 % (42.0-52.0); Hemoglobin 13.9 g/dl (14.0-18.0); Mean Corpuscular Hemoglobin 32.9 pg (25.0-34.0); Mean Corpuscular Volume 95.5 fL (80.0-100.0); Platelet Count 163 K/uL (130-400); RDW Standard Deviation 43.1 fL (36.4-46.3); Red Blood Count 4.23 M/uL (4.70-6.10); White Blood Count 19.28 K/ul (4.8-10.8)
[2024-10-01] MEDS ORDERED: SEVERE STRESS LEVEL ONE (06:12)
[2024-10-01] MEDS ORDERED: INSULIN PROTOCOL GOAL RANGE ONE (06:12)
[2024-10-01 06:19] LABS: Anion Gap 10.0 (3-11); Blood Urea Nitrogen 34.0 mg/dl (6-23); Calcium 7.0 mg/dl (8.6-10.3); Carbon Dioxide 18.0 mmol/L (21-32); Chloride 98.0 mmol/L (98-107); Creatinine Clr Calc Pharmacy 58.1 ml/min; Glucose 306.0 mg/dl (70-99(Fasting)); Magnesium 2.4 mg/dl (1.7-2.4); Potassium 4.3 mmol/L (3.5-5.1); Sodium 126.0 mmol/L (136-145)
[2024-10-01] MEDS: INSULIN REGULAR 250 UNITS in SODIUM CHLORIDE 0.9% 247.5 ML IV SCH (06:43)
[2024-10-01] MEDS: NovoLIN-R BOLUS FROM BAG IV ONE (06:46)
[2024-10-01] MEDS: PIPERACILLIN/TAZOBACTAM 4.5 GM/100 ML BAG IV SCH (07:39)
[2024-10-01] MEDS: AMIODARONE / D5W 360 MG/200 ML BAG IV SCH (07:41)
--- NOTE | 2024-10-01 07:44 | Critical Care Progress Note ---
Date of Service October 01, 2024 Assessment & Plan (1) Pneumonia: (2) Pleural effusion: (3) Acute hypoxemic respiratory failure: (4) Thrombocytopenia: (5) Airway intubation performed without difficulty: (6) History of tobacco abuse: (7) Respiratory failure: (8) COPD (chronic obstructive pulmonary disease) with emphysema: (9) Severe sepsis: (10) Acute non-ST elevation myocardial infarction (NSTEMI): (11) Alcohol withdrawal delirium: Plan Impression: 64-year-old male with severe obstructive lung disease at baseline admitted with multifocal pneumonia and hypoxemic respiratory failure with concomitant lactic acidosis. Lactate is improved with IV fluids. He is currently on antibiotics. He was placed on noninvasive positive pressure ventilation admitted to the ICU. Recommendations: Neurologic: Propofol and fentanyl for ICU sedation Midazolam pushes as needed agitation/restlessness MRI brain 09/30/2024: Chronic right cerebellar infarct, no evidence of intracranial mass, no acute changes -- Acute alcohol withdrawal History of heavy alcohol use Continue with high-dose thiamine and folic acid Cardiovascular: 2D echo 09/30/2024: Moderate LV dysfunction, EF 40%, RV not well-visualized --Septic shock Sources multifocal pneumonia Continue broad-spectrum antibiotic Vasopressor support to keep MAP greater than 65 --New onset A-fib RVR with new onset CHF Could be all related to underlying sepsis Amiodarone bolus then started on 09/30/2024 -- Elevated troponins Likely type II DE Continue to trend --Hypertension On losartan at home --Prolonged QTc Avoid QT prolonging medication Continue to monitor Respiratory: CTA chest 09/29/2024 personally reviewed: Centrilobular and paraseptal emphysema appreciated bilaterally Dense consolidative process appreciated in the right upper lobe as well as right middle lobe Minimal right-sided pleural effusion No significant mediastinal lymphadenopathy -- VDRF Intubated 09/30/2024 Likely secondary to multifocal pneumonia Follow-up bronc cultures from 09/30/2024 Continue with ventilatory support Keep RASS -1 Daily sedation holidays and SBT's Nasal MRSA negative Continue broad-spectrum antibiotics On steroids for severe pneumonia -- COPD with emphysema On Trelegy 100 at home Continue with nebulized budesonide and Perforomist GI: -- Occult blood positive Monitor H&H -- Mild transaminitis Continue to trend Renal: -- NAOMY Monitor BUN/creatinine Avoid nephrotoxic medications Strict ins and outs Endocrine: ICU hypoglycemia protocol ID: --Severe multifocal community-acquired pneumonia Procalcitonin 29.2 MRSA positive QTc 418 Rocephin changed to Zosyn on 09/30/2024 Follow-up [facility] cultures Heme-onc: --New onset thrombocytopenia Likely secondary to sepsis versus antibiotics Continue to trend --Prophylaxis VTE: Heparin drip GI: Pantoprazole Lines: Left IJ, left radial, peripheral, positive [place] Diet: Tube feeds Plan: In/out: +4.3 L, urine output 928 mL, +10 L since coming to the hospital AB Continue with amiodarone Continue with broad-spectrum antibiotics Chest x-ray from today still shows worsening of right lower lobe infiltrate On bronchoscopy 09/30/2024 there was no mucous plugging. Will do bedside ultrasound and no significant fluid on the right side then bronchoscopy will be pursued Patient's kidney function has been deteriorating, he is +10 L. Avoid further IV fluids. If there is no improvement in patient's urine output then I will give him a challenge of diuretic High likelihood of patient needing renal replacement therapy. Given the patient is on 2 vasopressors he might need CRRT. Follow-up urine lites Continue with trickle tube feeds Continue with hydrocortisone I have personally spent 52 minutes of critical care time in the direct management of this patient. This is a life/limb threatening event. This includes time spent evaluating patient, direct bedside care, chart review, placing orders, interpretation of diagnostic studies, discussion with consultants, patient, and family members, as well as other required patient management activities. This time is exclusive of all separately billable procedures, and teaching time and separate from and in addition to any other critical care service time. Please note the above document was generated using voice recognition software. It may contain grammatical, syntax or spelling errors. Admission and Anticipated Discharge Date Admission Date: September 29, 2024 Subjective Patient seen and examined at bedside. No acute distress Overnight patient went into A-fib with RVR He was on 0.35 Levophed, 0.04 of vasopressin and had just added phenylephrine 0.5 which was started He was saturating 93 over 94% on PEEP of 10, 50% FiO2. Was sedated with propofol and fentanyl He was breathing with the vent. Still spiking low-grade fever, Tmax 38.1 Review of Systems 2 Review of Systems: Unobtainable due to endotracheal tube Physical Exam 2 Physical Exam: Constitutional: No acute distress HEENT: PERRLA Respiratory system: Decreased air entry bilaterally, minimal expiratory wheeze on the left side, no rhonchi, positive crackles bilaterally CVS: S1-S2 positive, no murmurs or gallops, tachycardia, irregular Abdomen: Soft, nontender, nondistended, positive bowel sounds x4, obese Extremities: +2 pulses bilaterally radialis/ dorsalis pedis, no cyanosis, no edema Neuro: Intubated, sedated, RASS -2 Psych: Unable to assess G/U: Positive [place] Skin: no rashes, warm and dry Lymphatic: no cervical or axillary lymphadenopathy Results & Data Results & Data Vital Signs (Past 12 Hours) Vital Signs Temp Pulse Resp BP Pulse Ox O2 Del Method FiO2 10/01/24 06:09 39.0 C H 133 H 22 92 10/01/24 05:51 39.1 C H 138 H 22 92 10/01/24 05:30 39.3 C H 142 H 22 92 10/01/24 05:18 39.2 C H 143 H 22 92 10/01/24 05:00 39.2 C H 140 H 22 92 10/01/24 04:09 39.2 C H 141 H 18 90 10/01/24 03:58 50 10/01/24 03:49 144 H 25 H 91 50 10/01/24 03:01 110/91 10/01/24 02:51 130 H 22 93 10/01/24 02:42 137 H 22 93 10/01/24 02:30 36.8 C 10/01/24 02:24 134 H 22 93 10/01/24 02:12 143 H 22 94 10/01/24 02:00 26 H 97/84 L 96 10/01/24 01:57 157 H 26 H 96 10/01/24 01:54 136 H 22 96 10/01/24 01:42 136 H 27 H 96 10/01/24 01:00 148 H 22 103/74 94 10/01/24 00:30 81/68 L 10/01/24 00:27 130 H 22 95 10/01/24 00:21 130 H 81/68 L 10/01/24 00:09 160 H 21 96 10/01/24 00:06 171 H 103/74 10/01/24 00:00 103/74 09/30/24 23:58 60 09/30/24 23:39 159 H 22 95 09/30/24 23:21 169 H 22 96 09/30/24 23:09 153 H 22 97 09/30/24 23:01 99/72 L 09/30/24 23:00 154 H 22 95 09/30/24 22:51 153 H 22 96 09/30/24 22:48 139 H 22 95 09/30/24 22:40 157 H 24 95 60 09/30/24 22:36 154 H 21 96 09/30/24 22:30 108/79 09/30/24 22:23 115/60 09/30/24 21:03 96 H 21 93 09/30/24 21:00 93/62 L 09/30/24 20:45 94/58 L 09/30/24 20:42 99 H 22 94 09/30/24 20:33 99 H 22 94 09/30/24 20:30 84/61 L 09/30/24 20:18 110 H 22 94 09/30/24 20:15 84/59 L 09/30/24 20:00 83/55 L 09/30/24 20:00 60 09/30/24 20:00 Mechanical Vent 09/30/24 19:57 115 H 22 94 09/30/24 19:55 124 H 27 H 94 60 Laboratory Results 10/01/24 04:44 10/01/24 04:44 Coding Level of Care Code 72345 CRITICAL CARE 1ST 30-74M Diagnoses Pneumonia J18.9 Pleural effusion J90 Acute hypoxemic respiratory failure J96.01 Thrombocytopenia D69.6 Airway intubation performed without difficulty Z78.9 History of tobacco abuse Z87.891 Respiratory failure J96.90 COPD (chronic obstructive pulmonary disease) with emphysema J43.9 Severe sepsis A41.9; R65.20 Acute non-ST elevation myocardial infarction (NSTEMI) I21.4 Alcohol withdrawal delirium F10.931
[2024-10-01] MEDS: PHENYLEPHRINE/NSS 25 MG/250 ML BAG IV SCH (08:07)
[2024-10-01 08:31] LABS: ANTI-Xa, UFH(UnfractionatedHep 0.21 IU/ml (0.3-0.7)
--- NOTE | 2024-10-01 08:38 | XRay Report ---
EXAM: XR chest 1V portable CLINICAL HISTORY: f/u TECHNIQUE: An X-ray image of the chest is obtained in AP projection. COMPARISON: CR dated 09/30/2024. FINDINGS: Lines and Tubes: A newly placed endotracheal tube is noted. Its tip is located approximately 5.3 cm superior to the kimberley, which is an adequate position. A new left-sided central venous line is present, with its distal tip projecting over the superior vena cava. A new NG tube, reaching left infradiaphragmatic, tip not seen Pulmonary Parenchyma: A progressive course of the consolidation involving the right middle and lower lung zones is noted. Interval increase of right-sided mild to moderate pleural effusion. Clear left costophrenic angle Heart and Mediastinum: Mild cardiomegaly and a prominent aortic arch noted. Bony Thorax: Bony thorax appears intact without fractures or deformities. Soft Tissues: Soft tissues overlying the chest wall are unremarkable. IMPRESSION: 1. A newly placed endotracheal tube is noted. Its tip is located approximately 5.3 cm superior to the kimberley, which is an adequate position. 2. A new left-sided central venous line is present, with its distal tip projecting over the superior vena cava. 3. A new NG tube, reaching left infradiaphragmatic, tip not seen 4. Progressive right middle and lower lobe consolidation, consistent with worsening inflammatory process as pneumonia. Clinical correlation is advised 5. Interval increase of right-sided mild to moderate pleural effusion. Electronically signed by Carl Meraz 10-01-2024 08:37 AM
[2024-10-01] MEDS ORDERED: Nursing to Pharmacy Communication SCH (08:45)
[2024-10-01] MEDS ORDERED: PHARMACY GLYCEMIC MGMT CONSULT PRN (10:00)
[2024-10-01] MEDS ORDERED: VANCOMYCIN LEVEL ONE (11:00)
--- NOTE | 2024-10-01 13:29 | Pharmacy Report ---
Pharmacy Glycemic Short Note 2 - Date of Service October 01, 2024 - Glycemic Short BSG Results (Last 24 hours): 09/30/24 09/30/24 09/30/24 14:48 17:48 23:41 Glucose 174 H 215 H POC Glucose 166 H POC Glucose (other) 10/01/24 10/01/24 10/01/24 04:44 05:49 07:16 Glucose 306 H* POC Glucose POC Glucose (other) 280 H 267 H 10/01/24 10/01/24 10/01/24 08:04 09:08 10:08 Glucose POC Glucose POC Glucose (other) 245 H 226 H 210 H 10/01/24 11:07 Glucose POC Glucose POC Glucose (other) 193 H OUTPATIENT ANTIDIABETIC REGIMEN: * None * HbA1c ordered for 10/02/24 ASSESSMENT: * 64 yo M without a known history of diabetes with stress-induced hyperglycemia. Multiple and significant stressors include critical illness, ventilator support, high dose hydrocortisone, septic shock requiring multiple vasopressors, D5W infusions including heparin and amiodarone, plus Peptamen VHP tubefeeds running at a constant 30 mL/hr since ~0200 today * Insulin drip appropriately initiated early today. * Discussed on ICU rounds - keep insulin drip for today due to significant stressors. OK to start very low dose Lantus to help with eventual transition off of the insulin drip (anticipated no earlier than tomorrow). No Novolog to cover tubefeeds since these the tubefeeds are running at a continuous/constant rate and therefore need to titrate drip not anticipated to be high PLAN FOR INPATIENT GLYCEMIC CONTROL: * Basal insulin * Lantus 15 units SQ x1 * Insulin drip, currently running at 4 units/hr. Goal BSG 140-200 mg/dL. Titration per protocol. * Re-assess 10/02 AM
--- NOTE | 2024-10-01 13:56 | Hospitalist Progress Note ---
Date of Service October 01, 2024 Assessment & Plan (1) Hypokalemia: (2) Acute exacerbation of chronic obstructive pulmonary disease: (3) Respiratory failure: (4) COPD (chronic obstructive pulmonary disease) with emphysema: (5) Hypertension: (6) Acute hyponatremia: (7) Acute non-ST elevation myocardial infarction (NSTEMI): (8) Fall: (9) Head injury: Plan This is a 64-year-old morbidly obese male with a history of COPD, hypertension who presents with severe respiratory distress, now on BiPAP. Chest x-ray showed pneumonia. He was given DuoNebs, steroids, ceftriaxone in the emergency room. Labs significant for lactic acidosis of 5, anion gap metabolic acidosis, hyponatremia, hypokalemia, elevated troponin, elevated procalcitonin. His blood pressure dropped while in the ER. He is being admitted to the ICU with acute hypoxic respiratory failure, pneumonia with severe sepsis #Acute hypoxic respiratory failure Due to a combination of COPD exacerbation and pneumonia. Possibly MRSA pneumonia since MRSA nares positive Currently intubated Antibiotics broadened. Currently on vancomycin, Zosyn, and azithromycin Admissions Clerk on board Patient had a bronchoscopy biopsy done 09/30. Per nurse, bronchoscopy may be repeated today #Community-acquired pneumonia/severe sepsis Chest x-ray shows right upper and middle lobe consolidation. Possible MRSA pneumonia Antibiotic coverage broadened with vancomycin, Zosyn and azithromycin He was hypotensive, tachycardic, tachypneic, with lactic acidosis of 5. Met criteria for severe sepsis Blood cultures obtained Monitor vitals in ICU Now on Solu-Cortef #Acute kidney injury Patient was hypotensive overnight, requiring 3 pressors Creatinine bumped up to 1.7 Monitor Avoid nephrotoxic medications #Atrial fibrillation Started on amiodarone drip and heparin drip New onset Complicated by CHF #Anion gap metabolic acidosis/lactic acidosis Most likely due to sepsis Improved/resolved #Hyponatremia/hypokalemia Hyponatremia improved initially, now trending down again Hypokalemia resolved Renal function worsened #Elevated troponin Patient does not complain of any chest pain EKG reviewed. No ST-T wave changes. Troponins went up higher overnight. Echocardiogram reviewed. Technically difficult study. Most likely demand ischemia due to hypoxia and tachycardia. Trend troponins #Subacute/chronic right cerebellar infarct CT head was done because the patient had a fall with head trauma last night. It showed a subacute/chronic right cerebellar infarct MRI showed a chronic cerebellar infarct Patient has a history of intracranial hemorrhage most likely subdural hematoma when he was life flighted from [facility] to [facility] presby. No records yet #Hypertension Blood pressure is rather on the low side. On vasopressors Continue to hold losartan #Alcohol withdrawal Per nurse, patient was starting to get delirious and was hallucinating Currently on propofol and fentanyl Thiamine and folic acid added #COPD Budesonide twice daily added by liquor clerk VTE prophylaxis: Lovenox Full code Admission and Anticipated Discharge Date Admission Date: September 29, 2024 Subjective Overnight, patient took a turn for the worse. He went into A-fib and his blood pressure dropped. He is currently on 3 pressors. He is on amiodarone drip and heparin drip. Review of Systems Review of Systems: Unobtainable due to endotracheal tube Physical Exam Physical Exam: General: Morbidly obese patient. Currently intubated and sedated Heart: S1, S2/tachycardic, regular rhythm., no murmur rubs or gallops Lungs: Rhonchorous breath sounds heard bilaterally. Equal air entry bilaterally. Abdomen: Soft/nontender/nondistended. No hepatosplenomegaly Extremities: No clubbing/cyanosis. No edema Behavior: Unable to assess due to intubation and sedation Results & Data Results & Data Vital Signs (Past 12 Hours) Vital Signs Temp Pulse Pulse Resp BP BP Pulse Ox 10/01/24 13:00 38.0 C H 92 H 20 95 10/01/24 12:49 114/63 10/01/24 12:32 119/67 10/01/24 12:00 38.0 C H 98 H 22 93 10/01/24 12:00 36.5 C 10/01/24 12:00 37.0 C 10/01/24 12:00 115 H 10/01/24 11:54 116/69 10/01/24 11:00 37.9 C H 105 H 22 94 10/01/24 11:00 10/01/24 10:38 122/70 10/01/24 10:05 116/72 10/01/24 10:01 115 H 26 H 94 10/01/24 10:00 37.7 C H 119 H 21 94 10/01/24 09:48 122/74 10/01/24 09:36 37.9 C H 110 H 22 94 10/01/24 09:08 123/75 10/01/24 09:03 37.9 C H 116 H 22 94 10/01/24 08:54 38.0 C H 118 H 22 94 10/01/24 08:00 38.2 C H 140 H 22 94 10/01/24 08:00 10/01/24 08:00 117 H 10/01/24 08:00 117 H 10/01/24 07:45 22 10/01/24 07:45 126 H 22 94 10/01/24 07:42 38.2 C H 136 H 22 94 10/01/24 07:00 38.6 C H 138 H 22 93 10/01/24 07:00 10/01/24 06:09 39.0 C H 133 H 22 92 10/01/24 05:51 39.1 C H 138 H 22 92 10/01/24 05:30 39.3 C H 142 H 22 92 10/01/24 05:18 39.2 C H 143 H 22 92 10/01/24 05:00 39.2 C H 140 H 22 92 10/01/24 04:09 39.2 C H 141 H 18 90 10/01/24 03:58 10/01/24 03:49 144 H 25 H 91 10/01/24 03:01 110/91 10/01/24 02:51 130 H 22 93 10/01/24 02:42 137 H 22 93 10/01/24 02:30 36.8 C 10/01/24 02:24 134 H 22 93 10/01/24 02:12 143 H 22 94 10/01/24 02:00 26 H 97/84 L 96 10/01/24 01:57 157 H 26 H 96 10/01/24 01:54 136 H 22 96 O2 Del Method FiO2 10/01/24 13:00 10/01/24 12:49 10/01/24 12:32 10/01/24 12:00 10/01/24 12:00 10/01/24 12:00 10/01/24 12:00 10/01/24 11:54 10/01/24 11:00 10/01/24 11:00 50 10/01/24 10:38 10/01/24 10:05 10/01/24 10:01 50 10/01/24 10:00 10/01/24 09:48 10/01/24 09:36 10/01/24 09:08 10/01/24 09:03 10/01/24 08:54 10/01/24 08:00 10/01/24 08:00 Mechanical Vent 50 10/01/24 08:00 10/01/24 08:00 10/01/24 07:45 50 10/01/24 07:45 Mechanical Vent 50 10/01/24 07:42 10/01/24 07:00 Mechanical Vent 50 10/01/24 07:00 50 10/01/24 06:09 10/01/24 05:51 10/01/24 05:30 10/01/24 05:18 10/01/24 05:00 10/01/24 04:09 10/01/24 03:58 50 10/01/24 03:49 50 10/01/24 03:01 10/01/24 02:51 10/01/24 02:42 10/01/24 02:30 10/01/24 02:24 10/01/24 02:12 10/01/24 02:00 10/01/24 01:57 10/01/24 01:54 Laboratory Results Abnormal lab results 09/30/24 09/30/24 09/30/24 Range/Units 14:48 17:48 23:41 WBC (4.8-10.8) K/ul RBC (4.70-6.10) M/uL Hgb 13.9 L (14.0-18.0) g/dl POC Hgb (14.0-18.0) g/dl Hct 40.5 L (42.0-52.0) % POC Hct (42-52) % Heparin Anti-Xa, Unfract (0.3-0.7) IU/ml POC pH (7.35-7.45) POC pO2 (80-95) mmHg POC HCO3 (19-24) liat/L POC Total CO2 (24-31) mmol/L POC Base Excess (-9-1.8) liat/L POC ABG O2 Sat (90-95) % POC Sodium (135-144) mmol/L Sodium 131 L 129 L (136-145) mmol/L Carbon Dioxide (21-32) mmol/L BUN 29 H (6-23) mg/dl Creatinine (0.6-1.4) mg/dl BUN/Creatinine Ratio 23.9 H 22.1 H (10-20) Glucose 174 H 215 H (70-99(Fasting)) mg/dl POC Glucose 166 H (70-99) mg/dl POC Glucose (other) (70-99) mg/dl Calcium 7.2 L 7.3 L (8.6-10.3) mg/dl Urine Osmolality (500-800) mOsm/kg Random Vancomycin (10-20) mcg/ml 10/01/24 10/01/24 10/01/24 Range/Units 04:44 05:49 07:16 WBC 19.28 H (4.8-10.8) K/ul RBC 4.23 L (4.70-6.10) M/uL Hgb 13.9 L (14.0-18.0) g/dl POC Hgb 13.6 L (14.0-18.0) g/dl Hct 40.4 L (42.0-52.0) % POC Hct 40 L (42-52) % Heparin Anti-Xa, Unfract (0.3-0.7) IU/ml POC pH 7.22 L (7.35-7.45) POC pO2 69 L (80-95) mmHg POC HCO3 17 L (19-24) liat/L POC Total CO2 19 L (24-31) mmol/L POC Base Excess -10.0 L (-9-1.8) liat/L POC ABG O2 Sat 89.0 L (90-95) % POC Sodium 127 L (135-144) mmol/L Sodium 126 L (136-145) mmol/L Carbon Dioxide 18 L (21-32) mmol/L BUN 34 H (6-23) mg/dl Creatinine 1.78 H D (0.6-1.4) mg/dl BUN/Creatinine Ratio (10-20) Glucose 306 H* (70-99(Fasting)) mg/dl POC Glucose (70-99) mg/dl POC Glucose (other) 280 H 267 H (70-99) mg/dl Calcium 7.0 L (8.6-10.3) mg/dl Urine Osmolality (500-800) mOsm/kg Random Vancomycin (10-20) mcg/ml 10/01/24 10/01/24 10/01/24 Range/Units 07:54 08:04 09:05 WBC (4.8-10.8) K/ul RBC (4.70-6.10) M/uL Hgb (14.0-18.0) g/dl POC Hgb (14.0-18.0) g/dl Hct (42.0-52.0) % POC Hct (42-52) % Heparin Anti-Xa, Unfract 0.21 L (0.3-0.7) IU/ml POC pH (7.35-7.45) POC pO2 (80-95) mmHg POC HCO3 (19-24) liat/L POC Total CO2 (24-31) mmol/L POC Base Excess (-9-1.8) liat/L POC ABG O2 Sat (90-95) % POC Sodium (135-144) mmol/L Sodium (136-145) mmol/L Carbon Dioxide (21-32) mmol/L BUN (6-23) mg/dl Creatinine (0.6-1.4) mg/dl BUN/Creatinine Ratio (10-20) Glucose (70-99(Fasting)) mg/dl POC Glucose (70-99) mg/dl POC Glucose (other) 245 H (70-99) mg/dl Calcium (8.6-10.3) mg/dl Urine Osmolality 303 L (500-800) mOsm/kg Random Vancomycin 25.0 H (10-20) mcg/ml 10/01/24 10/01/24 10/01/24 Range/Units 09:08 10:08 11:07 WBC (4.8-10.8) K/ul RBC (4.70-6.10) M/uL Hgb (14.0-18.0) g/dl POC Hgb (14.0-18.0) g/dl Hct (42.0-52.0) % POC Hct (42-52) % Heparin Anti-Xa, Unfract (0.3-0.7) IU/ml POC pH (7.35-7.45) POC pO2 (80-95) mmHg POC HCO3 (19-24) liat/L POC Total CO2 (24-31) mmol/L POC Base Excess (-9-1.8) liat/L POC ABG O2 Sat (90-95) % POC Sodium (135-144) mmol/L Sodium (136-145) mmol/L Carbon Dioxide (21-32) mmol/L BUN (6-23) mg/dl Creatinine (0.6-1.4) mg/dl BUN/Creatinine Ratio (10-20) Glucose (70-99(Fasting)) mg/dl POC Glucose (70-99) mg/dl POC Glucose (other) 226 H 210 H 193 H (70-99) mg/dl Calcium (8.6-10.3) mg/dl Urine Osmolality (500-800) mOsm/kg Random Vancomycin (10-20) mcg/ml Diagnostic Findings Brain MRI 09/30/24 13:27 Exam(s): MRI HEAD W/WO Contrast IV Amt: 13ml gadavist EXAM: MR Head Without and With Intravenous Contrast CLINICAL HISTORY: Reason for exam: f/u CT scan. TECHNIQUE: Magnetic resonance images of the head/brain without and with intravenous contrast in multiple planes. CONTRAST: Patient received 13ml gadavist of IV contrast COMPARISON: CT head 09/29/2024 FINDINGS: Brain: Chronic right cerebellar infarct. No diffusion restriction to suggest acute cerebral ischemia. Parenchymal volume normal for age. Scattered foci of FLAIR signal hyperintensity within the cerebral white matter in keeping with minimal chronic small-vessel ischemic change. No evidence of intracranial mass. Ventricles: Unremarkable. No hydrocephalus. Bones/joints: Old right-sided craniotomy with minimal subjacent encephalomalacia right parietal lobe. Proximal intracranial flow voids appear normal. No acute fracture. Soft tissues: Unremarkable. No abnormal enhancement. Sinuses: Unremarkable as visualized. Mastoid air cells: Unremarkable as visualized. No mastoid effusion. Orbits: Unremarkable as visualized. IMPRESSION: 1. No diffusion restriction to suggest acute cerebral ischemia. 2. No evidence of intracranial mass. 3. Chronic right cerebellar infarct. Electronically signed by: Zack Aponte M.D. 09/30/24 23:55 PM Chest X-Ray 09/30/24 22:54 Exam(s): XR CXR 1 VIEW EXAM: XR Chest, 1 View CLINICAL HISTORY: Reason for exam: eval line placement for CVL LT IJ. TECHNIQUE: Frontal view of the chest. COMPARISON: 09/30/2024 at 0847 hours FINDINGS: Lungs: Stable dense consolidation right lower lung. Pleural space: Right pleural effusion not excluded. No left pleural effusion. No pneumothorax. Heart: Stable heart size. Bones/joints: No acute fracture. No dislocation. Tubes, lines and devices: Endotracheal tube 3 cm from the kimberley. Left IJ CVC with tip in the SVC. Enteric tube extends to the stomach and beyond the [id number]. IMPRESSION: 1. Stable dense consolidation right lower lung. 2. Endotracheal tube 3 cm from the kimberley. Left IJ CVC with tip in the SVC. Enteric tube extends to the stomach and beyond the [id number]. Electronically signed by: Zack Aponte M.D. 10/01/24 00:00 AM Chest X-Ray 10/01/24 07:00 EXAM: XR chest 1V portable CLINICAL HISTORY: f/u TECHNIQUE: An X-ray image of the chest is obtained in AP projection. COMPARISON: dated 09/30/2024. FINDINGS: Lines and Tubes: A newly placed endotracheal tube is noted. Its tip is located approximately 5.3 cm superior to the kimberley, which is an adequate position. A new left-sided central venous line is present, with its distal tip projecting over the superior vena cava. A new NG tube, reaching left infradiaphragmatic, tip not seen Pulmonary Parenchyma: A progressive course of the consolidation involving the right middle and lower lung zones is noted. Interval increase of right-sided mild to moderate pleural effusion. Clear left costophrenic angle Heart and Mediastinum: Mild cardiomegaly and a prominent aortic arch noted. Bony Thorax: Bony thorax appears intact without fractures or deformities. Soft Tissues: Soft tissues overlying the chest wall are unremarkable. IMPRESSION: 1. A newly placed endotracheal tube is noted. Its tip is located approximately 5.3 cm superior to the kimberley, which is an adequate position. 2. A new left-sided central venous line is present, with its distal tip projecting over the superior vena cava. 3. A new NG tube, reaching left infradiaphragmatic, tip not seen 4. Progressive right middle and lower lobe consolidation, consistent with worsening inflammatory process as pneumonia. Clinical correlation is advised 5. Interval increase of right-sided mild to moderate pleural effusion. Electronically signed by Carl Meraz 10-01-2024 08:37 AM PG Care Time/CCT Total # of Minutes Spent Total Time Spent with Patient: Total time spent is greater than 50% in coordination of care (as documented) at patient's floor/unit and/or counseling patient: Coding Level of Care Code 63951 SUB INP/OBS CARE 2/35MIN Diagnoses Hypokalemia E87.6 Acute exacerbation of chronic obstructive pulmonary disease J44.1 Respiratory failure J96.90 COPD (chronic obstructive pulmonary disease) with emphysema J43.9 Hypertension I10 Acute hyponatremia E87.1 Acute non-ST elevation myocardial infarction (NSTEMI) I21.4 Fall W19.XXXA Head injury S09.90XA
[2024-10-01] MEDS: LANTUS PER UNIT CHARGE SC ONE (14:09)
[2024-10-01 14:48] LABS: Anion Gap 11.0 (3-11); Blood Urea Nitrogen 40.0 mg/dl (6-23); Calcium 7.1 mg/dl (8.6-10.3); Carbon Dioxide 18.0 mmol/L (21-32); Chloride 99.0 mmol/L (98-107); Creatinine Clr Calc Pharmacy 45.8 ml/min; Glucose 133.0 mg/dl (70-99(Fasting)); Potassium 4.0 mmol/L (3.5-5.1); Sodium 128.0 mmol/L (136-145)
[2024-10-01 14:49] LABS: ANTI-Xa, UFH(UnfractionatedHep 0.17 IU/ml (0.3-0.7)
[2024-10-01] MEDS: HEPARIN SOD (PORCINE) 1000 UNIT/ML IV ONE (15:28)
[2024-10-01] MEDS: CEFTAROLINE FOSAMIL ACETATE 400 MG in SODIUM CHLORIDE 0.9% 250 ML IV ONE (20:04)
[2024-10-01] MEDS: BUMETANIDE 2 MG in SYRINGE 0 ML IV ONE (20:18)
[2024-10-01 23:12] LABS: ANTI-Xa, UFH(UnfractionatedHep 0.23 IU/ml (0.3-0.7)
[2024-10-02 05:22] LABS: Hematocrit (blood only) 36.1 % (42.0-52.0); Hemoglobin 12.4 g/dl (14.0-18.0); Mean Corpuscular Hemoglobin 32.7 pg (25.0-34.0); Mean Corpuscular Volume 95.3 fL (80.0-100.0); Platelet Count 168 K/uL (130-400); RDW Standard Deviation 42.5 fL (36.4-46.3); Red Blood Count 3.79 M/uL (4.70-6.10); White Blood Count 13.88 K/ul (4.8-10.8)
[2024-10-02 05:38] LABS: Anion Gap 13.0 (3-11); Blood Urea Nitrogen 53.0 mg/dl (6-23); Calcium 6.9 mg/dl (8.6-10.3); Carbon Dioxide 16.0 mmol/L (21-32); Chloride 99.0 mmol/L (98-107); Creatinine Clr Calc Pharmacy 32.8 ml/min; Glucose 161.0 mg/dl (70-99(Fasting)); Magnesium 2.4 mg/dl (1.7-2.4); Potassium 3.7 mmol/L (3.5-5.1); Sodium 128.0 mmol/L (136-145)
[2024-10-02 05:51] LABS: ANTI-Xa, UFH(UnfractionatedHep 0.27 IU/ml (0.3-0.7)
[2024-10-02 07:29] LABS: Hemoglobin A1C 5.7 % (4.5-5.6)
--- NOTE | 2024-10-02 07:45 | Critical Care Progress Note ---
Date of Service October 02, 2024 Assessment & Plan (1) Pneumonia: (2) Pleural effusion: (3) Acute hypoxemic respiratory failure: (4) Thrombocytopenia: (5) Airway intubation performed without difficulty: (6) History of tobacco abuse: (7) Respiratory failure: (8) COPD (chronic obstructive pulmonary disease) with emphysema: (9) Severe sepsis: (10) Acute non-ST elevation myocardial infarction (NSTEMI): (11) Alcohol withdrawal delirium: Plan Impression: 64-year-old male with severe obstructive lung disease at baseline admitted with multifocal pneumonia and hypoxemic respiratory failure with concomitant lactic acidosis. Lactate is improved with IV fluids. He is currently on antibiotics. He was placed on noninvasive positive pressure ventilation admitted to the ICU. Recommendations: Neurologic: Propofol and fentanyl for ICU sedation Midazolam pushes as needed agitation/restlessness MRI brain 09/30/2024: Chronic right cerebellar infarct, no evidence of intracranial mass, no acute changes -- Acute alcohol withdrawal History of heavy alcohol use Continue with high-dose thiamine and folic acid Cardiovascular: 2D echo 09/30/2024: Moderate LV dysfunction, EF 40%, RV not well-visualized --Septic shock Sources is multifocal pneumonia --> BAL growing Staph aureus Continue broad-spectrum antibiotic Vasopressor support to keep MAP greater than 65 --New onset A-fib RVR with new onset CHF Could be all related to underlying sepsis Amiodarone bolus then started on 09/30/2024 -- Elevated troponins Likely type II VA Continue to trend --Hypertension On losartan at home --Prolonged QTc Avoid QT prolonging medication Continue to monitor Respiratory: CTA chest 09/29/2024 personally reviewed: Centrilobular and paraseptal emphysema appreciated bilaterally Dense consolidative process appreciated in the right upper lobe as well as right middle lobe Minimal right-sided pleural effusion No significant mediastinal lymphadenopathy -- VDRF Intubated 09/30/2024 Likely secondary to multifocal pneumonia Follow-up bronc cultures from 09/30/2024 S/p repeat bronc 10/02/2024, thin clear secretions obstructing the right lower lobe which were suctioned out Continue with ventilatory support Keep RASS -1 Daily sedation holidays and SBT's Nasal MRSA negative Continue broad-spectrum antibiotics On steroids for severe pneumonia --Small right-sided pleural effusion Appreciated on POCUS 10/01/2024 -- COPD with emphysema On Trelegy 100 at home Continue with nebulized budesonide and Perforomist GI: -- Occult blood positive Monitor H&H -- Mild transaminitis Continue to trend Renal: -- NAOMY --> acute renal failure Will probably need renal replacement treatment. Nephrology has been consulted Endocrine: ICU hypoglycemia protocol ID: --Severe multifocal community-acquired pneumonia Procalcitonin 29.2 MRSA positive QTc 418 Rocephin changed to Zosyn on 09/30/2024 Vancomycin changed to ceftaroline on 10/01/2024 Bronch culture growing Staph aureus Heme-onc: -- Thrombocytopenia --> resolved Likely secondary to sepsis versus antibiotics Continue to trend --Prophylaxis VTE: Heparin drip GI: Pantoprazole Lines: Left IJ, left radial, peripheral, positive De [place] Torre, right IJ dialysis catheter 10/02/2024 Diet: Tube feeds Plan: In/out: +3.9 L, urine output 126 mL, +14 L since coming to the hospital Continue with amiodarone Continue ceftaroline, Zosyn as well as azithromycin. Will get infectious disease involved Patient still shows persistent right-sided opacities on the chest x-ray. With small right-sided pleural effusion Unfortunately patient's creatinine is getting worse, he is not making any urine. Case discussed with nephrology, will start dialysis today. We will give an amp of bicarb given the bicarb is only 16. Continue with trickle tube feeds Continue with hydrocortisone I have personally spent 43 minutes of critical care time in the direct management of this patient. This is a life/limb threatening event. This includes time spent evaluating patient, direct bedside care, chart review, placing orders, interpretation of diagnostic studies, discussion with consultants, patient, and family members, as well as other required patient management activities. This time is exclusive of all separately billable procedures, and teaching time and separate from and in addition to any other critical care service time. Please note the above document was generated using voice recognition software. It may contain grammatical, syntax or spelling errors. Admission and Anticipated Discharge Date Admission Date: September 29, 2024 Subjective Patient seen and examined at bedside. No acute distress, no adverse events overnight. He did get Bumex but no significant improvement in urinary output He was on 0.5 phenylephrine and 0.04 of vasopressin On propofol 20 and fentanyl 75 Review of Systems 2 Review of Systems: All systems reviewed & are unremarkable except as noted in Subjective Physical Exam 2 Physical Exam: Constitutional: No acute distress HEENT: PERRLA Respiratory system: Decreased air entry bilaterally, minimal expiratory wheeze on the left side, no rhonchi, positive crackles bilaterally CVS: S1-S2 positive, no murmurs or gallops, irregular Abdomen: Soft, nontender, nondistended, positive bowel sounds x4, obese Extremities: +2 pulses bilaterally radialis/ dorsalis pedis, no cyanosis, minimal pitting edema bilateral lower extremity Neuro: Intubated, sedated, RASS -2 Psych: Unable to assess G/U: Positive De La Torre Skin: no rashes, warm and dry Lymphatic: no cervical or axillary lymphadenopathy Results & Data Results & Data Vital Signs (Past 12 Hours) Vital Signs Temp Pulse Resp Pulse Ox O2 Del Method FiO2 10/02/24 07:21 37.1 C 108 H 22 94 10/02/24 07:08 105 H 21 92 4 10/02/24 07:08 Mechanical Vent 10/02/24 06:51 37.0 C 104 H 22 93 10/02/24 06:45 37.0 C 99 H 22 93 10/02/24 06:36 37.2 C 106 H 22 92 10/02/24 06:24 37.2 C 113 H 22 95 10/02/24 06:18 37.2 C 98 H 22 95 10/02/24 06:09 37.2 C 106 H 23 94 10/02/24 05:54 37.3 C 108 H 22 94 10/02/24 05:27 37.2 C 119 H 23 96 10/02/24 05:00 37.2 C 98 H 25 H 95 10/02/24 04:45 37.2 C 107 H 23 96 10/02/24 04:36 37.2 C 112 H 23 96 10/02/24 04:15 37.2 C 100 H 23 96 10/02/24 04:00 37.3 C 112 H 23 96 10/02/24 04:00 104 H 28 H 97 40 10/02/24 03:30 37.3 C 115 H 25 H 96 10/02/24 03:18 37.4 C 119 H 25 H 96 10/02/24 03:06 37.4 C 112 H 25 H 96 10/02/24 03:00 40 10/02/24 02:57 37.4 C 108 H 23 96 10/02/24 02:42 37.4 C 121 H 23 95 10/02/24 02:21 37.4 C 103 H 24 94 10/02/24 02:18 37.4 C 119 H 22 95 10/02/24 02:00 37.4 C 117 H 23 94 10/02/24 01:45 111 H 23 80 L 10/02/24 00:54 106 H 22 95 10/02/24 00:36 107 H 24 96 10/02/24 00:21 120 H 20 95 10/02/24 00:06 121 H 20 95 10/01/24 23:57 110 H 21 95 10/01/24 23:51 120 H 24 96 10/01/24 23:48 131 H 21 95 10/01/24 23:30 120 H 23 95 10/01/24 23:27 121 H 21 95 10/01/24 23:21 115 H 20 96 10/01/24 23:01 115 H 29 H 96 40 10/01/24 23:00 40 10/01/24 22:56 119 H 22 95 10/01/24 22:47 123 H 20 95 10/01/24 22:29 118 H 20 94 10/01/24 22:14 110 H 20 94 10/01/24 21:59 110 H 22 94 10/01/24 21:41 38.5 C H 123 H 22 95 10/01/24 21:35 38.5 C H 130 H 21 94 10/01/24 21:23 38.5 C H 115 H 21 95 10/01/24 21:08 38.5 C H 125 H 22 95 10/01/24 20:57 38.5 C H 109 H 20 94 10/01/24 20:50 38.5 C H 122 H 24 94 10/01/24 20:39 38.6 C H 104 H 20 94 10/01/24 20:30 Mechanical Vent 10/01/24 20:23 35.0 C L 112 H 23 92 10/01/24 20:00 37.3 C 116 H 22 95 10/01/24 19:50 110 H 26 H 94 40 Laboratory Results 10/02/24 04:55 10/02/24 04:55 Coding Level of Care Code 91972 CRITICAL CARE 1ST 30-74M Diagnoses Pneumonia J18.9 Pleural effusion J90 Acute hypoxemic respiratory failure J96.01 Thrombocytopenia D69.6 Airway intubation performed without difficulty Z78.9 History of tobacco abuse Z87.891 Respiratory failure J96.90 COPD (chronic obstructive pulmonary disease) with emphysema J43.9 Severe sepsis A41.9; R65.20 Acute non-ST elevation myocardial infarction (NSTEMI) I21.4 Alcohol withdrawal delirium F10.931
--- NOTE | 2024-10-02 07:52 | Nephrology Consultation ---
Date of Consultation October 02, 2024 Assessment & Plan (1) NAOMY (acute kidney injury): Oliguric. Clinical history consistent with ATN. Increasing hypervolemia. No response to diuretic challenge overnight. Large obligatory intake. Hemodynamically requiring vasopressor support and with atrial fibrillation with labile HR. I do not expect renal recovery in the near future. Role for EMPLOYMENT TRAINING SPECIALIST was discussed with the ICU team and the patient's . Will plan for HD today for clearance and to assist with volume control. If Jamie is not able to tolerate HD, may consider transfer to a facility able to offer CRRT. Orders for HD entered into the EHR and reviewed with conference center manager. Medications are currently appropriately dosed for kidney function. Vanco dosing per pharmacy. Document strict I/O's. Repeat metabolic profile tomorrow AM. (2) Severe sepsis with septic shock: Antibiotic therapy and vasopressor support per ICU. (3) Acute hypoxemic respiratory failure: Remains ventilator dependent. History of Present Illness Reason for Consultation: ARF Requesting Physician: Isela Cavanaugh MD Attending Physician: Pa Younger MD History of Present Illness Mr. Jamie Moyer is a 64 year-old male with morbid obesity, hypertension, and COPD who presented to [facility] on September 29 with respiratory distress. Jamie was admitted with septic shock due to multifocal pneumonia. He is ventilator dependent in the ICU. History was obtained through the EHR, ICU team, and patient's (Lanie). Lanie provided consent to proceed with hemodialysis over the phone. Jamie has oligoanuric NAOMY. BP is being maintained with phenylephrine and vasopressin gtts. Obligatory intake is high. There was no significant response to IV Bumex overnight. On 10/01, new onset atrial fibrillation with RVR developed. CTa on admission negative for PE. CT head demonstrating subacute/chronic R cerebellar infarct. Imaging demonstrating RUL and RML PNA. Remains on antibiotic coverage with ceftriaxone, azithromycin, and vancomycin. s/p bronchoscopy with BAL 10/01. De La Torre draining small amount of clear yellow urine. Urine microscopy demonstrating WBC, RBC, hyaline and granular casts. Allergies Allergy/AdvReac Type Severity Reaction Status Date / Time hydrocodone Allergy Unknown hives Verified 12/26/22 16:54 Home Medications Medication Instructions Recorded Confirmed Type nebulizer accessories #1 ea 06/09/22 12/26/22 Rx nebulizers #1 ea 06/09/22 12/26/22 Rx albuterol sulfate 2.5 mg/3 mL 2.5 mg (3 mL) inhalation QID PRN 06/10/22 09/29/24 Rx (0.083 %) solution for nebulization shortness of breath or wheezing #180 mL ipratropium bromide 0.02 % 2.5 ml inhalation QID PRN 06/28/22 09/29/24 Rx solution for inhalation shortness of breath or wheezing #150 mL clobetasol 0.025 % topical cream 1 applic topical DAILY PRN Other 12/26/22 09/29/24 History albuterol sulfate 90 mcg/actuation 2 puff inhalation Q6H PRN 02/01/23 09/29/24 Rx aerosol inhaler shortness of breath or wheezing #18 grams fluticasone fur. 100 mcg-umeclid 1 inh inhalation DAILY #28 ea 01/24/24 09/29/24 Rx 62.5 mcg-vilant 25 mcg inhalat.powder (Trelegy Ellipta) losartan 100 mg tablet 100 mg PO DAILY #14 tabs 01/24/24 09/29/24 Rx Patient History Medical History Acute subdural hematoma Sciatica Surgical History S/P brain surgery S/P wisdom tooth extraction Family History Mother Breast cancer Myocardial infarction Ovarian cancer Father Hodgkin lymphoma Denies family history of Prostate cancer Colorectal cancer Social History Smoking Status: Former smoker Tobacco Type: Cigarettes Age Started Using Tobacco: 17; Age Quit Using Tobacco: 52; packs per day: 1; Second Hand Exposure: No; Do You Dip or Chew Tobacco: No; Hx Alcohol Use: Yes Alcohol type: beer Hx Substance Use: Yes Prescribed Medications: Marijuana Last Used Substance: Unknown Substance Use Type Other:: Patient has medical marijuana card Preferred Language: Salvadorean Communication Ability: Effective Visual Impairment: No Limitations Hearing Ability: Normal Merchandise Worker Required: No Beliefs That Will Affect Care: None marital status: Current Living Situation: Spouse current occupational status: unemployed How many Children do You have: 1 Feels Safe at Home: Yes Childhood Exposure to Second-Hand Smoke: Yes Diet: regular Diet Comment: Regular caffeine: Yes during the past year weight has: remained stable Dental Care, Regularly: No Physical Activity Frequency: 3-4 Times per Week Seatbelt Use: sometimes Sunscreen Use: No Assistive Devices: None Review of Systems Review of Systems: Unobtainable due to endotracheal tube and Unobtainable due to reduced consciousness Physical Exam Constitutional: + morbidly obese, + mechanically ventila ivet and + edematous; no acute distress Eyes: + anicteric sclerae ENMT: ETT Neck: normal visual inspection and + thick neck Respiratory: Auscultation: + diminished lung sounds FIO2 40%, PEEP 10 Cardiovascular: Rate/Rhythm: + tachycardic and + irregularly irregular Extremities: + edema Gastrointestinal (Abdomen): Inspection/Auscultation: + abdomen distended Percussion/Palpation: abdomen not rigid Musculoskeletal: Extremities: no cyanosis Genitourinary: De La Torre with <5 ml clear yellow urine Results & Data Vital Signs (Past 12 Hours) Vital Signs Temp Pulse Resp Pulse Ox O2 Del Method FiO2 10/02/24 07:21 37.1 C 108 H 22 94 10/02/24 07:08 105 H 21 92 4 10/02/24 07:08 Mechanical Vent 10/02/24 06:51 37.0 C 104 H 22 93 10/02/24 06:45 37.0 C 99 H 22 93 10/02/24 06:36 37.2 C 106 H 22 92 10/02/24 06:24 37.2 C 113 H 22 95 10/02/24 06:18 37.2 C 98 H 22 95 10/02/24 06:09 37.2 C 106 H 23 94 10/02/24 05:54 37.3 C 108 H 22 94 10/02/24 05:27 37.2 C 119 H 23 96 10/02/24 05:00 37.2 C 98 H 25 H 95 10/02/24 04:45 37.2 C 107 H 23 96 10/02/24 04:36 37.2 C 112 H 23 96 10/02/24 04:15 37.2 C 100 H 23 96 10/02/24 04:00 37.3 C 112 H 23 96 10/02/24 04:00 104 H 28 H 97 40 10/02/24 03:30 37.3 C 115 H 25 H 96 10/02/24 03:18 37.4 C 119 H 25 H 96 10/02/24 03:06 37.4 C 112 H 25 H 96 10/02/24 03:00 40 10/02/24 02:57 37.4 C 108 H 23 96 10/02/24 02:42 37.4 C 121 H 23 95 10/02/24 02:21 37.4 C 103 H 24 94 10/02/24 02:18 37.4 C 119 H 22 95 10/02/24 02:00 37.4 C 117 H 23 94 10/02/24 01:45 111 H 23 80 L 10/02/24 00:54 106 H 22 95 10/02/24 00:36 107 H 24 96 10/02/24 00:21 120 H 20 95 10/02/24 00:06 121 H 20 95 10/01/24 23:57 110 H 21 95 10/01/24 23:51 120 H 24 96 10/01/24 23:48 131 H 21 95 10/01/24 23:30 120 H 23 95 10/01/24 23:27 121 H 21 95 10/01/24 23:21 115 H 20 96 10/01/24 23:01 115 H 29 H 96 40 10/01/24 23:00 40 10/01/24 22:56 119 H 22 95 10/01/24 22:47 123 H 20 95 10/01/24 22:29 118 H 20 94 10/01/24 22:14 110 H 20 10/01/24 21:59 110 H 22 94 10/01/24 21:41 38.5 C H 123 H 22 95 10/01/24 21:35 38.5 C H 130 H 21 94 10/01/24 21:23 38.5 C H 115 H 21 95 10/01/24 21:08 38.5 C H 125 H 22 95 10/01/24 20:57 38.5 C H 109 H 20 94 10/01/24 20:50 38.5 C H 122 H 24 94 10/01/24 20:39 38.6 C H 104 H 20 94 10/01/24 20:30 Mechanical Vent 10/01/24 20:23 35.0 C L 112 H 23 92 10/01/24 20:00 37.3 C 116 H 22 95 Laboratory Results Laboratory Results - last 24 hr 10/01/24 10/01/24 10/01/24 07:54 08:04 09:05 WBC RBC Hgb Hct MCV MCH MCHC RDW Std Deviation RDW Coeff of [place] Plt Count MPV Heparin Anti-Xa, Unfract 0.21 L Sodium Potassium Chloride Carbon Dioxide Anion Gap BUN Creatinine Est Cr Clr Drug Dosing eGFR BUN/Creatinine Ratio Glucose POC Glucose (other) 245 H Estimat Average Glucose Hemoglobin A1c Calcium Phosphorus Magnesium Urine Osmolality 303 L Ur Random Creatinine 101.0 Ur Random Sodium < 10 Ur Random Potassium 31.8 Ur Random Chloride < 15 Random Vancomycin 25.0 H 10/01/24 10/01/24 10/01/24 09:08 10:08 11:07 WBC RBC Hgb Hct MCV MCH MCHC RDW Std Deviation RDW Coeff of [place] Plt Count MPV Heparin Anti-Xa, Unfract Sodium Potassium Chloride Carbon Dioxide Anion Gap BUN Creatinine Est Cr Clr Drug Dosing eGFR BUN/Creatinine Ratio Glucose POC Glucose (other) 226 H 210 H 193 H Estimat Average Glucose Hemoglobin A1c Calcium Phosphorus Magnesium Urine Osmolality Ur Random Creatinine Ur Random Sodium Ur Random Potassium Ur Random Chloride Random Vancomycin 10/01/24 10/01/24 10/01/24 12:31 13:06 13:57 WBC RBC Hgb Hct MCV MCH MCHC RDW Std Deviation RDW Coeff of [place] Plt Count MPV Heparin Anti-Xa, Unfract 0.17 L Sodium 128 L Potassium 4.0 Chloride 99 Carbon Dioxide 18 L Anion Gap 11 BUN 40 H Creatinine 2.26 H D Est Cr Clr Drug Dosing 45.8 eGFR 31.79 BUN/Creatinine Ratio 17.7 Glucose 133 H POC Glucose (other) 165 H 151 H Estimat Average Glucose Hemoglobin A1c Calcium 7.1 L Phosphorus Magnesium Urine Osmolality Ur Random Creatinine Ur Random Sodium Ur Random Potassium Ur Random Chloride Random Vancomycin 21.4 H 10/01/24 10/01/24 10/01/24 14:04 15:20 16:06 WBC RBC Hgb Hct MCV MCH MCHC RDW Std Deviation RDW Coeff of [place] Plt Count MPV Heparin Anti-Xa, Unfract Sodium Potassium Chloride Carbon Dioxide Anion Gap BUN Creatinine Est Cr Clr Drug Dosing eGFR BUN/Creatinine Ratio Glucose POC Glucose (other) 135 H 139 H 150 H Estimat Average Glucose Hemoglobin A1c Calcium Phosphorus Magnesium Urine Osmolality Ur Random Creatinine Ur Random Sodium Ur Random Potassium Ur Random Chloride Random Vancomycin 10/01/24 10/01/24 10/01/24 17:09 18:12 19:17 WBC RBC Hgb Hct MCV MCH MCHC RDW Std Deviation RDW Coeff of [place] Plt Count MPV Heparin Anti-Xa, Unfract Sodium Potassium Chloride Carbon Dioxide Anion Gap BUN Creatinine Est Cr Clr Drug Dosing eGFR BUN/Creatinine Ratio Glucose POC Glucose (other) 145 H 133 H 127 H Estimat Average Glucose Hemoglobin A1c Calcium Phosphorus Magnesium Urine Osmolality Ur Random Creatinine Ur Random Sodium Ur Random Potassium Ur Random Chloride Random Vancomycin 10/01/24 10/01/24 10/01/24 20:16 21:27 21:29 WBC RBC Hgb Hct MCV MCH MCHC RDW Std Deviation RDW Coeff of [place] Plt Count MPV Heparin Anti-Xa, Unfract 0.23 L Sodium Potassium Chloride Carbon Dioxide Anion Gap BUN Creatinine Est Cr Clr Drug Dosing eGFR BUN/Creatinine Ratio Glucose POC Glucose (other) 121 H 115 H Estimat Average Glucose Hemoglobin A1c Calcium Phosphorus Magnesium Urine Osmolality Ur Random Creatinine Ur Random Sodium Ur Random Potassium Ur Random Chloride Random Vancomycin 10/01/24 10/01/24 10/02/24 22:27 23:16 00:18 WBC RBC Hgb Hct MCV MCH MCHC RDW Std Deviation RDW Coeff of [place] Plt Count MPV Heparin Anti-Xa, Unfract Sodium Potassium Chloride Carbon Dioxide Anion Gap BUN Creatinine Est Cr Clr Drug Dosing eGFR BUN/Creatinine Ratio Glucose POC Glucose (other) 115 H 120 H 125 H Estimat Average Glucose Hemoglobin A1c Calcium Phosphorus Magnesium Urine Osmolality Ur Random Creatinine Ur Random Sodium Ur Random Potassium Ur Random Chloride Random Vancomycin 10/02/24 10/02/24 10/02/24 01:21 03:26 04:55 WBC 13.88 H RBC 3.79 L Hgb 12.4 L Hct 36.1 L MCV 95.3 MCH 32.7 MCHC 34.3 RDW Std Deviation 42.5 RDW Coeff of [place] 12.0 Plt Count 168 MPV 12.3 Heparin Anti-Xa, Unfract 0.27 L Sodium 128 L Potassium 3.7 Chloride 99 Carbon Dioxide 16 L Anion Gap 13 H BUN 53 H Creatinine 3.15 H D Est Cr Clr Drug Dosing 32.8 eGFR 21.34 BUN/Creatinine Ratio 16.8 Glucose 161 H POC Glucose (other) 136 H 153 H Estimat Average Glucose 117 Hemoglobin A1c 5.7 H Calcium 6.9 L Phosphorus 6.4 H Magnesium 2.4 Urine Osmolality Ur Random Creatinine Ur Random Sodium Ur Random Potassium Ur Random Chloride Random Vancomycin 10/02/24 07:06 WBC RBC Hgb Hct MCV MCH MCHC RDW Std Deviation RDW Coeff of [place] Plt Count MPV Heparin Anti-Xa, Unfract Sodium Potassium Chloride Carbon Dioxide Anion Gap BUN Creatinine Est Cr Clr Drug Dosing eGFR BUN/Creatinine Ratio Glucose POC Glucose (other) 163 H Estimat Average Glucose Hemoglobin A1c Calcium Phosphorus Magnesium Urine Osmolality Ur Random Creatinine Ur Random Sodium Ur Random Potassium Ur Random Chloride Random Vancomycin Diagnostic Findings XR chest 1V portable COMPARISON: CR dated 09/30/2024. FINDINGS: Lines and Tubes: A newly placed endotracheal tube is noted. Its tip is located approximately 5.3 cm superior to the kimberley, which is an adequate position. A new left-sided central venous line is present, with its distal tip projecting over the superior vena cava. A new NG tube, reaching left infradiaphragmatic, tip not seen Pulmonary Parenchyma: A progressive course of the consolidation involving the right middle and lower lung zones is noted. Interval increase of right-sided mild to moderate pleural effusion. Clear left costophrenic angle Heart and Mediastinum: Mild cardiomegaly and a prominent aortic arch noted. Bony Thorax: Bony thorax appears intact without fractures or deformities. Soft Tissues: Soft tissues overlying the chest wall are unremarkable. IMPRESSION: 1. A newly placed endotracheal tube is noted. Its tip is located approximately 5.3 cm superior to the kimberley, which is an adequate position. 2. A new left-sided central venous line is present, with its distal tip projecting over the superior vena cava. 3. A new NG tube, reaching left infradiaphragmatic, tip not seen 4. Progressive right middle and lower lobe consolidation, consistent with worsening inflammatory process as pneumonia. Clinical correlation is advised 5. Interval increase of right-sided mild to moderate pleural effusion. CTA Chest 09/29/24 Comparison is made to the prior CT dated 02/25/2024 Findings: There is no definite sign of pulmonary embolism. There is alveolar consolidation in the right upper lobe and right middle lobe, consistent with pneumonia. There is mild emphysema. There is mild subsegmental atelectasis in both lower lobes. There is no left pleural effusion or pneumothorax. There is a small right pleural effusion. No endobronchial lesion is seen There are mildly enlarged mediastinal lymph nodes, measuring up to 1.5 cm in short axis. The thoracic aorta appears unremarkable with no sign of aneurysm or dissection. There is no pericardial effusion. There is coronary atherosclerosis The visualized upper abdomen appears unremarkable. No fracture is seen. No focal osseous lesion is evident Impression: 1. No definite sign of pulmonary embolism 2. Right upper lobe and right middle lobe pneumonia 3. Small right pleural effusion 4. Mild mediastinal adenopathy, which may be related to the pneumonia PG Care Time/CCT Total # of Minutes Spent Total Time Spent with Patient: Total time spent is greater than 50% in coordination of care (as documented) at patient's floor/unit and/or counseling patient: Coding Level of Care Code 50580 IN/OBS CONSULT LVL 5,80M Diagnoses NAOMY (acute kidney injury) N17.9 Severe sepsis with septic shock A41.9; R65.21 Acute hypoxemic respiratory failure J96.01
[2024-10-02] MEDS: CEFTAROLINE FOSAMIL ACETATE 300 MG in SODIUM CHLORIDE 0.9% 250 ML IV SCH ×2 (08:06→20:56)
[2024-10-02] MEDS: SODIUM BICARB 8.4% INJ 50 MEQ/50 ML SYR IV STA (08:24)
--- NOTE | 2024-10-02 08:40 | XRay Report ---
XR chest 1V portable CLINICAL HISTORY: f/u COMPARISON STUDY: 10/01/2024 FINDINGS: Endotracheal tube tip is stable between the thoracic inlet and the kimberley. Nasogastric tube tip is off the field of view inferiorly. Stable left central catheter. Stable dense opacity at the r ight mid and lower lung with obscuration of the right hemidiaphragm. Left lung remains aerated. No pn eumothorax seen. IMPRESSION: Stable exam. ACT 112: Negative or not required by law. Electronically signed by: Herman Brush M.D. 10/02/2024 8:39 AM
--- NOTE | 2024-10-02 09:38 | Procedure Note ---
Procedure Note Date of Service October 02, 2024 Procedure: Inserting ultrasound-guided dialysis catheter Trailer Steerer: Dr. Isela Cavanaugh Indication: Acute renal failure Consent: Consent signed by patient's and verified with timeout prior to procedure. Anesthesia: 1% lidocaine without epinephrine local. Procedure: Consent was verified and timeout performed. Appropriate imaging studies were reviewed prior to the procedure. Under aseptic and sterile condition, right IJ vein was accessed under direct ultrasound guidance. Guidewire was confirmed to be within the lumen of vein with the help of ultrasound. Dialysis catheter was introduced via Seldinger technique. Guide a wire was removed. Good non-pulsatile blood flow was appreciated from all the ports. The catheter was placed at 16 cm and sutured in place. BioPatch was applied to the catheter and a sterile Tegaderm dressing was applied over the catheter with careful attention to sterility. Lung sliding was appreciated post procedure with the help ultrasound. Chest x-ray to follow Patient tolerated the procedure well. Blood loss: Less than < 2cc Complications: None [facility] [place] Procedure Codes (Charges) Tubes, Drains, and Vasc Access Procedure 1: Tubes, Drains, and Vasc Access: [id number] Ultrasound Guidance For Vascular Procedure 2: Tubes, Drains, and Vasc Access: [id number] Insertion of cannula for hemodialysis Coding CPT Codes Tubes, Drains, and Vasc Access - Tubes, Drains, and Vasc Access: [id number] Ultrasound Guidance For Vascular ([id number]) Tubes, Drains, and Vasc Access - Tubes, Drains, and Vasc Access: [id number] Insertion of cannula for hemodialysis ([id number]) Additional Codes Date of Service (PG.SURGERY)
[2024-10-02] MEDS: BUMETANIDE 4 MG in SYRINGE 0 ML IV ONE (09:50)
--- NOTE | 2024-10-02 10:13 | Procedure Note ---
Procedure Note: Bronchoscopy Procedure PREOPERATIVE DIAGNOSIS: Multifocal pneumonia POSTOPERATIVE DIAGNOSIS: Significant thin secretions in the right lower lobe which were suctioned out PROCEDURE PERFORMED: Flexible fiberoptic bronchoscopy with BAL COMPLICATIONS: None. INDICATION: Rule out mucous plugging PROCEDURE: After obtaining consent from patient's , patient was already in the ICU. The patient had appropriate oxygen, blood pressure, heart rate, and respiratory rate monitoring applied and monitored continuously throughout the procedure. Patient was intubated just prior to the procedure. He was on 100% FiO2 and PEEP of 10 He was already on propofol and fentanyl. 20 mg of propofol and 50 mcg of fentanyl were given during the procedure The trachea appeared normal.The bronchoscope was then advanced through the kimberley, which was sharp. The scope was then advanced into the right main stem and each segment, subsegement in the right upper lobe, right middle lobe and right lower lobe were visualized. There was moderate amount of clear brown secretion in the right main going into the right lower lobe which was suctioned out. The right lower lobe mucosa was edematous and friable. There were no other findings including evidence of mass, anatomic distortions, or hemorrhage. The bronchoscope was subsequently withdrawn and advanced into the left mainstem. Again, each segment and subsegment was well visualized. No specific masses or other lesions were identified throughout the tracheobronchial tree on the left. There was minimal amount of clear secretion which was suctioned out. The bronchoscope was then placed in right main and bronchial wash samples were obtained. The secretions which were in the right main were suctioned and sent to the lab The bronchoscope was then withdrawn to the mainstem. The area was suctioned clear. The bronchoscope was then withdrawn. The patient tolerated the procedure well without evidence of desaturation or complications. Bronchoalveolar lavage samples were sent for cell count, Gram stain and bacterial culture, fungal culture and smear and cytology. Estimated blood loss: None Recommendations: Follow-up micro and cytology Follow-up chest x-ray Please note the above document was generated using voice recognition software. It may contain grammatical, syntax or spelling errors.Any formal questions or concerns about the content, text or information contained within the body of this dictation should be directly addressed to the provider for clarification. [facility] [place] Procedure Codes (Charges) Pulmonary/Thoracic Procedure 1: Pulmonary and Thoracic: 57263 Dx bronchoscopy/wash
--- NOTE | 2024-10-02 10:15 | Procedure Note ---
Procedure Note Date of Service October 01, 2024 Bedside Ultrasound: Lung: Right:-Small right-sided hypoechoic simple pleural effusion with atelectasis of the right lower lobe, B-lines anteriorly and posteriorly Left:-No pleural effusion, A-lines anteriorly Please note the above document was generated using voice recognition software. It may contain grammatical, syntax or spelling errors.Any formal questions or concerns about the content, text or information contained within the body of this dictation should be directly addressed to the provider for clarification. [facility] [place] Procedure Codes (Charges) Pulmonary/Thoracic Procedure 1: Pulmonary and Thoracic: 96024 US, Chest, real time with imaging documentation Coding CPT Codes Pulmonary/Thoracic - Pulmonary and Thoracic: 27038 US, Chest, real time with imaging documentation ([id number]) Additional Codes Date of Service (PG.SURGERY)
--- NOTE | 2024-10-02 10:22 | XRay Report ---
XR chest 1V portable CLINICAL HISTORY: POST BRONCH AND S/P DAILYSIS CATH PLACEMENT COMPARISON STUDY: 10/02/2024 FINDINGS: Endotracheal tube tip is just below the thoracic inlet. Nasogastric tube tip is off the fie ld of view inferiorly. Right central catheter tip is in the SVC. Stable left central catheter. There is stable mild cardiomegaly with mild pulmonary vascular congestion. Stable dense opacity at the righ t mid and lower lung. No pneumothorax seen. IMPRESSION: No pneumothorax. Otherwise as described. ACT 112: Negative or not required by law. Electronically signed by: Herman Brush M.D. 10/02/2024 10:21 AM
--- NOTE | 2024-10-02 10:37 | Pharmacy Report ---
Pharmacy Glycemic Short Note 2 - Date of Service October 02, 2024 - Glycemic Short BSG Results (Last 24 hours): 10/01/24 10/01/24 10/01/24 11:07 12:31 13:06 Glucose POC Glucose (other) 193 H 165 H 151 H 10/01/24 10/01/24 10/01/24 13:57 14:04 15:20 Glucose 133 H POC Glucose (other) 135 H 139 H 10/01/24 10/01/24 10/01/24 16:06 17:09 18:12 Glucose POC Glucose (other) 150 H 145 H 133 H 10/01/24 10/01/24 10/01/24 19:17 20:16 21:29 Glucose POC Glucose (other) 127 H 121 H 115 H 10/01/24 10/01/24 10/02/24 22:27 23:16 00:18 Glucose POC Glucose (other) 115 H 120 H 125 H 10/02/24 10/02/24 10/02/24 01:21 03:26 04:55 Glucose 161 H POC Glucose (other) 136 H 153 H 10/02/24 10/02/24 07:06 09:03 Glucose POC Glucose (other) 163 H 173 H OUTPATIENT ANTIDIABETIC REGIMEN: * None * HbA1c 5.7% 10/02/24 ASSESSMENT: 10/02 * HbA1c resulted today and may be consistent with pre-diabetes - suspect hyperglycemia is stress-induced and will resolve as stressors dissipate * Stressors stable from yesterday but remain significant per below. Initiation of HD planned for later today. Discussed w dietitian (Jak) - may consider adjustment of tubefeed formula to a renal formula, which has higher CHO * Insulin drip rate has decreased and is now running at 1.1 units/hr. HD may affect BSG's, and change in tubefeed formulation may also play a role * Continue insulin drip and titrating per protocol. May continue low dose Lantus, but only if drip rate is greater than 2 units/hr 10/01 * 64 yo M without a known history of diabetes with stress-induced hyperglycemia. Multiple and significant stressors include critical illness, ventilator support, high dose hydrocortisone, septic shock requiring multiple vasopressors, D5W infusions including heparin and amiodarone, plus Peptamen VHP tubefeeds running at a constant 30 mL/hr since ~0200 today * Insulin drip appropriately initiated early today. * Discussed on ICU rounds - keep insulin drip for today due to significant stressors. OK to start very low dose Lantus to help with eventual transition off of the insulin drip (anticipated no earlier than tomorrow). No Novolog to cover tubefeeds since these the tubefeeds are running at a continuous/constant rate and therefore need to titrate drip not anticipated to be high PLAN FOR INPATIENT GLYCEMIC CONTROL: * Basal insulin * Lantus 0-15 units at HS, depending on insulin drip rate * Insulin drip, currently running at 1.1 units/hr. Goal BSG 140-200 mg/dL. Titration per protocol. * Re-assess 10/03 AM
[2024-10-02 10:59] LABS: Hep B Surface Ag with confirm Negative (Negative)
[2024-10-02 12:17] LABS: ANTI-Xa, UFH(UnfractionatedHep 0.27 IU/ml (0.3-0.7)
--- NOTE | 2024-10-02 13:57 | Hospitalist Progress Note ---
Date of Service October 02, 2024 Assessment & Plan (1) Hypokalemia: (2) Acute exacerbation of chronic obstructive pulmonary disease: (3) Respiratory failure: (4) COPD (chronic obstructive pulmonary disease) with emphysema: (5) Hypertension: (6) Acute hyponatremia: (7) Acute non-ST elevation myocardial infarction (NSTEMI): (8) Fall: (9) Head injury: Plan This is a 64-year-old morbidly obese male with a history of COPD, hypertension who presents with severe respiratory distress, now on BiPAP. Chest x-ray showed pneumonia. He was given DuoNebs, steroids, ceftriaxone in the emergency room. Labs significant for lactic acidosis of 5, anion gap metabolic acidosis, hyponatremia, hypokalemia, elevated troponin, elevated procalcitonin. His blood pressure dropped while in the ER. He is being admitted to the ICU with acute hypoxic respiratory failure, pneumonia with severe sepsis #Acute hypoxic respiratory failure Due to a combination of COPD exacerbation and pneumonia. Possibly MRSA pneumonia since MRSA nares positive Bronchial lavage growing staph Currently on ceftaroline and azithromycin Consult infectious disease Currently intubated #Community-acquired pneumonia/septic shock Chest x-ray shows right upper and middle lobe consolidation. Possible MRSA pneumonia Bronchial lavage growing staph Currently on ceftaroline and azithromycin He was hypotensive, tachycardic, tachypneic, with lactic acidosis of 5. Met criteria for severe sepsis Blood cultures obtained Monitor vitals in ICU Now on Solu-Cortef #Acute kidney injury ATN due to septic shock Creatinine bumped up to 3.15 Oliguric/anuric Did not respond to diuretic challenge Nephrology involved, started the patient on hemodialysis on pressors in the ICU Monitor #Atrial fibrillation Started on amiodarone drip and heparin drip New onset Complicated by CHF Monitor thrombocytopenia Hemoccult positive few days ago. Monitor. #Anion gap metabolic acidosis/lactic acidosis Most likely due to sepsis Improved/resolved #Hyponatremia/hypokalemia Hyponatremia improved initially, now trending down again Hypokalemia resolved Renal function worsened #Elevated troponin Patient does not complain of any chest pain EKG reviewed. No ST-T wave changes. Troponins went up higher overnight. Echocardiogram reviewed. Technically difficult study. Most likely demand ischemia due to hypoxia and tachycardia. Trend troponins #Subacute/chronic right cerebellar infarct CT head was done because the patient had a fall with head trauma last night. It showed a subacute/chronic right cerebellar infarct MRI showed a chronic cerebellar infarct Patient has a history of intracranial hemorrhage most likely subdural hematoma when he was life flighted from [facility] to [facility]. No records yet #Hypertension Blood pressure is rather on the low side. On vasopressors Continue to hold losartan #Alcohol withdrawal Per nurse, patient was starting to get delirious and was hallucinating Currently on propofol and fentanyl Thiamine and folic acid added #COPD Budesonide twice daily added by paint stripper VTE prophylaxis: Lovenox Full code Admission and Anticipated Discharge Date Admission Date: September 29, 2024 Subjective Patient has had very little urine output. Did not respond to diuretic challenge. Nephrology was consulted and the patient was started on dialysis while on multiple pressors. Bronchial lavage grew staph Review of Systems Review of Systems: Unobtainable due to endotracheal tube Physical Exam Physical Exam: General: Morbidly obese patient. Currently intubated and sedated. Currently on dialysis in the ICU Heart: S1, S2/tachycardic, irregular rhythm., no murmur rubs or gallops Lungs: Equal air entry bilaterally. Abdomen: Soft/nontender/nondistended. No hepatosplenomegaly Extremities: No clubbing/cyanosis. No edema Behavior: Unable to assess due to intubation and sedation Results & Data Results & Data Vital Signs (Past 12 Hours) Vital Signs Temp Pulse Pulse Resp BP Pulse Ox O2 Del Method 10/02/24 13:00 103 H 111/58 L 10/02/24 12:45 120 H 109/63 10/02/24 12:30 105 H 117/61 10/02/24 12:15 104 H 125/65 10/02/24 12:00 106 H 124/61 10/02/24 12:00 36.9 C 99 H 20 98 10/02/24 12:00 99 H 10/02/24 11:45 93 H 102/63 10/02/24 11:39 36.9 C 109 H 21 98 10/02/24 11:33 36.9 C 108 H 20 97 10/02/24 11:30 108 H 124/60 10/02/24 11:27 37.0 C 100 H 20 96 10/02/24 11:15 110 H 105/56 L 10/02/24 11:06 37.0 C 107 H 23 97 10/02/24 11:04 102 H 103/55 L 10/02/24 11:00 37.0 C 105 H 21 97 10/02/24 11:00 10/02/24 11:00 37.0 C 99 H 10/02/24 10:51 37.0 C 108 H 22 97 10/02/24 10:42 37.0 C 106 H 19 97 10/02/24 10:30 37.1 C 95 H 21 98 10/02/24 10:27 37.0 C 99 H 20 98 10/02/24 10:24 Mechanical Vent 10/02/24 10:19 112 H 23 100 10/02/24 10:00 37.0 C 111 H 32 H 85 L 10/02/24 09:57 36.9 C 117 H 18 82 L 10/02/24 09:51 37.0 C 110 H 22 92 10/02/24 09:45 37.0 C 112 H 22 92 10/02/24 09:42 37.0 C 110 H 21 93 10/02/24 09:36 36.9 C 108 H 22 88 L 10/02/24 09:33 37.0 C 111 H 22 87 L 10/02/24 09:27 36.9 C 102 H 26 H 87 L 10/02/24 09:24 36.9 C 108 H 22 89 L 10/02/24 09:15 36.9 C 108 H 21 88 L 10/02/24 09:12 36.9 C 104 H 21 87 L 10/02/24 09:06 36.9 C 109 H 22 87 L 10/02/24 08:48 37.1 C 119 H 22 92 10/02/24 08:27 37.0 C 101 H 26 H 94 10/02/24 08:15 37.0 C 104 H 22 94 10/02/24 08:12 37.0 C 118 H 22 94 10/02/24 08:06 37.0 C 107 H 24 94 10/02/24 08:03 37.1 C 106 H 26 H 94 10/02/24 08:00 108 H 10/02/24 07:48 37.1 C 97 H 23 94 10/02/24 07:42 37.1 C 113 H 23 94 10/02/24 07:33 37.1 C 99 H 22 94 10/02/24 07:30 Mechanical Vent 10/02/24 07:21 37.1 C 108 H 22 94 10/02/24 07:08 105 H 21 92 10/02/24 07:08 Mechanical Vent 10/02/24 07:00 10/02/24 06:51 37.0 C 104 H 22 93 10/02/24 06:45 37.0 C 99 H 22 93 10/02/24 06:36 37.2 C 106 H 22 92 10/02/24 06:24 37.2 C 113 H 22 95 10/02/24 06:18 37.2 C 98 H 22 95 10/02/24 06:09 37.2 C 106 H 23 94 10/02/24 05:54 37.3 C 108 H 22 94 10/02/24 05:27 37.2 C 119 H 23 96 10/02/24 05:00 37.2 C 98 H 25 H 95 10/02/24 04:45 37.2 C 107 H 23 96 10/02/24 04:36 37.2 C 112 H 23 96 10/02/24 04:15 37.2 C 100 H 23 96 10/02/24 04:00 37.3 C 112 H 23 96 10/02/24 04:00 104 H 28 H 97 10/02/24 03:30 37.3 C 115 H 25 H 96 10/02/24 03:18 37.4 C 119 H 25 H 96 10/02/24 03:06 37.4 C 112 H 25 H 96 10/02/24 03:00 10/02/24 02:57 37.4 C 108 H 23 96 10/02/24 02:42 37.4 C 121 H 23 95 10/02/24 02:21 37.4 C 103 H 24 94 10/02/24 02:18 37.4 C 119 H 22 95 10/02/24 02:00 37.4 C 117 H 23 94 FiO2 10/02/24 13:00 10/02/24 12:45 10/02/24 12:30 10/02/24 12:15 10/02/24 12:00 10/02/24 12:00 10/02/24 12:00 10/02/24 11:45 10/02/24 11:39 10/02/24 11:33 10/02/24 11:30 10/02/24 11:27 10/02/24 11:15 10/02/24 11:06 10/02/24 11:04 10/02/24 11:00 10/02/24 11:00 70 10/02/24 11:00 10/02/24 10:51 10/02/24 10:42 10/02/24 10:30 10/02/24 10:27 10/02/24 10:24 10/02/24 10:19 70 10/02/24 10:00 10/02/24 09:57 10/02/24 09:51 10/02/24 09:45 10/02/24 09:42 10/02/24 09:36 10/02/24 09:33 10/02/24 09:27 10/02/24 09:24 10/02/24 09:15 10/02/24 09:12 10/02/24 09:06 10/02/24 08:48 10/02/24 08:27 10/02/24 08:15 10/02/24 08:12 10/02/24 08:06 10/02/24 08:03 10/02/24 08:00 10/02/24 07:48 10/02/24 07:42 10/02/24 07:33 10/02/24 07:30 40 10/02/24 07:21 10/02/24 07:08 4 10/02/24 07:08 10/02/24 07:00 4 10/02/24 06:51 10/02/24 06:45 10/02/24 06:36 10/02/24 06:24 10/02/24 06:18 10/02/24 06:09 10/02/24 05:54 10/02/24 05:27 10/02/24 05:00 10/02/24 04:45 10/02/24 04:36 10/02/24 04:15 10/02/24 04:00 10/02/24 04:00 40 10/02/24 03:30 10/02/24 03:18 10/02/24 03:06 10/02/24 03:00 40 10/02/24 02:57 10/02/24 02:42 10/02/24 02:21 10/02/24 02:18 10/02/24 02:00 Laboratory Results Abnormal lab results 10/01/24 10/01/24 10/01/24 Range/Units 12:31 13:06 13:57 WBC (4.8-10.8) K/ul RBC (4.70-6.10) M/uL Hgb (14.0-18.0) g/dl Hct (42.0-52.0) % Heparin Anti-Xa, Unfract 0.17 L (0.3-0.7) IU/ml Sodium 128 L (136-145) mmol/L Carbon Dioxide 18 L (21-32) mmol/L Anion Gap (3-11) BUN 40 H (6-23) mg/dl Creatinine 2.26 H D (0.6-1.4) mg/dl Glucose 133 H (70-99(Fasting)) mg/dl POC Glucose (other) 165 H 151 H (70-99) mg/dl Hemoglobin A1c (4.5-5.6) % Calcium 7.1 L (8.6-10.3) mg/dl Phosphorus (2.5-4.9) mg/dl Random Vancomycin 21.4 H (10-20) mcg/ml 10/01/24 10/01/24 10/01/24 Range/Units 14:04 15:20 16:06 WBC (4.8-10.8) K/ul RBC (4.70-6.10) M/uL Hgb (14.0-18.0) g/dl Hct (42.0-52.0) % Heparin Anti-Xa, Unfract (0.3-0.7) IU/ml Sodium (136-145) mmol/L Carbon Dioxide (21-32) mmol/L Anion Gap (3-11) BUN (6-23) mg/dl Creatinine (0.6-1.4) mg/dl Glucose (70-99(Fasting)) mg/dl POC Glucose (other) 135 H 139 H 150 H (70-99) mg/dl Hemoglobin A1c (4.5-5.6) % Calcium (8.6-10.3) mg/dl Phosphorus (2.5-4.9) mg/dl Random Vancomycin (10-20) mcg/ml 10/01/24 10/01/24 10/01/24 Range/Units 17:09 18:12 19:17 WBC (4.8-10.8) K/ul RBC (4.70-6.10) M/uL Hgb (14.0-18.0) g/dl Hct (42.0-52.0) % Heparin Anti-Xa, Unfract (0.3-0.7) IU/ml Sodium (136-145) mmol/L Carbon Dioxide (21-32) mmol/L Anion Gap (3-11) BUN (6-23) mg/dl Creatinine (0.6-1.4) mg/dl Glucose (70-99(Fasting)) mg/dl POC Glucose (other) 145 H 133 H 127 H (70-99) mg/dl Hemoglobin A1c (4.5-5.6) % Calcium (8.6-10.3) mg/dl Phosphorus (2.5-4.9) mg/dl Random Vancomycin (10-20) mcg/ml 10/01/24 10/01/24 10/01/24 Range/Units 20:16 21:27 21:29 WBC (4.8-10.8) K/ul RBC (4.70-6.10) M/uL Hgb (14.0-18.0) g/dl Hct (42.0-52.0) % Heparin Anti-Xa, Unfract 0.23 L (0.3-0.7) IU/ml Sodium (136-145) mmol/L Carbon Dioxide (21-32) mmol/L Anion Gap (3-11) BUN (6-23) mg/dl Creatinine (0.6-1.4) mg/dl Glucose (70-99(Fasting)) mg/dl POC Glucose (other) 121 H 115 H (70-99) mg/dl Hemoglobin A1c (4.5-5.6) % Calcium (8.6-10.3) mg/dl Phosphorus (2.5-4.9) mg/dl Random Vancomycin (10-20) mcg/ml 10/01/24 10/01/24 10/02/24 Range/Units 22:27 23:16 00:18 WBC (4.8-10.8) K/ul RBC (4.70-6.10) M/uL Hgb (14.0-18.0) g/dl Hct (42.0-52.0) % Heparin Anti-Xa, Unfract (0.3-0.7) IU/ml Sodium (136-145) mmol/L Carbon Dioxide (21-32) mmol/L Anion Gap (3-11) BUN (6-23) mg/dl Creatinine (0.6-1.4) mg/dl Glucose (70-99(Fasting)) mg/dl POC Glucose (other) 115 H 120 H 125 H (70-99) mg/dl Hemoglobin A1c (4.5-5.6) % Calcium (8.6-10.3) mg/dl Phosphorus (2.5-4.9) mg/dl Random Vancomycin (10-20) mcg/ml 10/02/24 10/02/24 10/02/24 Range/Units 01:21 03:26 04:55 WBC 13.88 H (4.8-10.8) K/ul RBC 3.79 L (4.70-6.10) M/uL Hgb 12.4 L (14.0-18.0) g/dl Hct 36.1 L (42.0-52.0) % Heparin Anti-Xa, Unfract 0.27 L (0.3-0.7) IU/ml Sodium 128 L (136-145) mmol/L Carbon Dioxide 16 L (21-32) mmol/L Anion Gap 13 H (3-11) BUN 53 H (6-23) mg/dl Creatinine 3.15 H D (0.6-1.4) mg/dl Glucose 161 H (70-99(Fasting)) mg/dl POC Glucose (other) 136 H 153 H (70-99) mg/dl Hemoglobin A1c 5.7 H (4.5-5.6) % Calcium 6.9 L (8.6-10.3) mg/dl Phosphorus 6.4 H (2.5-4.9) mg/dl Random Vancomycin (10-20) mcg/ml 10/02/24 10/02/24 10/02/24 Range/Units 07:06 09:03 11:28 WBC (4.8-10.8) K/ul RBC (4.70-6.10) M/uL Hgb (14.0-18.0) g/dl Hct (42.0-52.0) % Heparin Anti-Xa, Unfract (0.3-0.7) IU/ml Sodium (136-145) mmol/L Carbon Dioxide (21-32) mmol/L Anion Gap (3-11) BUN (6-23) mg/dl Creatinine (0.6-1.4) mg/dl Glucose (70-99(Fasting)) mg/dl POC Glucose (other) 163 H 173 H 180 H (70-99) mg/dl Hemoglobin A1c (4.5-5.6) % Calcium (8.6-10.3) mg/dl Phosphorus (2.5-4.9) mg/dl Random Vancomycin (10-20) mcg/ml 10/02/24 10/02/24 Range/Units 11:31 13:06 WBC (4.8-10.8) K/ul RBC (4.70-6.10) M/uL Hgb (14.0-18.0) g/dl Hct (42.0-52.0) % Heparin Anti-Xa, Unfract 0.27 L (0.3-0.7) IU/ml Sodium (136-145) mmol/L Carbon Dioxide (21-32) mmol/L Anion Gap (3-11) BUN (6-23) mg/dl Creatinine (0.6-1.4) mg/dl Glucose (70-99(Fasting)) mg/dl POC Glucose (other) 162 H (70-99) mg/dl Hemoglobin A1c (4.5-5.6) % Calcium (8.6-10.3) mg/dl Phosphorus (2.5-4.9) mg/dl Random Vancomycin (10-20) mcg/ml Diagnostic Findings Chest X-Ray 10/02/24 00:00 XR chest 1V portable CLINICAL HISTORY: POST BRONCH AND S/P DAILYSIS CATH PLACEMENT COMPARISON STUDY: 10/02/2024 FINDINGS: Endotracheal tube tip is just below the thoracic inlet. Nasogastric tube tip is off the field of view inferiorly. Right central catheter tip is in the SVC. Stable left central catheter. There is stable mild cardiomegaly with mild pulmonary vascular congestion. Stable dense opacity at the right mid and lower lung. No pneumothorax seen. IMPRESSION: No pneumothorax. Otherwise as described. ACT 112: Negative or not required by law. Electronically signed by: Herman Brush M.D. 10/02/2024 10:21 AM Chest X-Ray 10/02/24 07:53 XR chest 1V portable CLINICAL HISTORY: f/u COMPARISON STUDY: 10/01/2024 FINDINGS: Endotracheal tube tip is stable between the thoracic inlet and the kimberley. Nasogastric tube tip is off the field of view inferiorly. Stable left central catheter. Stable dense opacity at the right mid and lower lung with obscuration of the right hemidiaphragm. Left lung remains aerated. No pneumothorax seen. IMPRESSION: Stable exam. ACT 112: Negative or not required by law. Electronically signed by: Herman Brush M.D. 10/02/2024 8:39 AM PG Care Time/CCT Total # of Minutes Spent Total Time Spent with Patient: Total time spent is greater than 50% in coordination of care (as documented) at patient's floor/unit and/or counseling patient: Coding Level of Care Code 15719 SUB INP/OBS CARE 2/35MIN Diagnoses Hypokalemia E87.6 Acute exacerbation of chronic obstructive pulmonary disease J44.1 Respiratory failure J96.90 COPD (chronic obstructive pulmonary disease) with emphysema J43.9 Hypertension I10 Acute hyponatremia E87.1 Acute non-ST elevation myocardial infarction (NSTEMI) I21.4 Fall W19.XXXA Head injury S09.90XA
--- NOTE | 2024-10-02 15:32 | Infectious Disease Consult ---
Date of Consultation October 02, 2024 Assessment & Plan (1) Pneumonia: (2) Acute hypoxemic respiratory failure: (3) NAOMY (acute kidney injury): Plan Problems: #Staph aureus pneumonia #Acute hypoxic respiratory failure s/p intubation 09/30 #NAOMY Micro: 10/02 R main stem BAL cx: pending 09/30 RML BAL Bronchial cx: Staph aureus Fungal cx: pending AFB smear neg, cx pending 09/29 Sputum cx: moderate normal anne 09/29 MRSA nares: positive 09/29 BCx x2: NGTD Abx: Ceftaroline 10/01 - present Pip-tazo 10/01 - present Ceftriaxone 09/29 - 09/30 Vanc 09/29 - 10/01 Azithro 09/29 - 10/01 64 yo M with COPD, HTN who presented on 09/29 with shortness of breath, admitted with AHRF, Staph aureus pneumonia. On presentation, he was afebrile, HR 165, BP 116/89 (later dropped as low as 88/64), RR 34, requiring BiPAP. Labs showed WBC 10.41, plt 121, Na 124, K 2.3, Cr 1.16, AST 86, Tbili 1.2, lactate 5.4, procal 4.49. CTA chest with no PE, and RUL and RML pneumonia. He was started on vanc, ceftriaxone, azithromycin, solumedrol and admitted to the ICU. He was intubated on 09/30 due to respiratory failure. A bronchoscopy was performed, which showed a moderate amount of brown-red secretions in the R main which was suctioned out. RML BAL cx sent, currently growing Staph aureus, sensitivities pending. MRSA nares positive. Overnight on 10/01, pt went into afib with RVR, required norepi, vasopressin, phenylephrine. Was persistently febrile. WBC increased to 19.28. Ceftriaxone was changed to Zosyn. Vanc was changed to ceftaroline. Kidney function worsening, with Cr up to 3.15 on 10/02. On phenylephrine and vasopressin. Repeat bronchoscop y done 10/02, which showed moderate amount of clear brown secretions in the R main going into the RLL. BAL culture sent. WBC now downtrending to 13.88. Recommendations: - Will stop zosyn - For MRSA coverage, avoiding vanc due to worsening NAOMY. Linezolid should be ok with fentanyl (serotonin syndrome rare), but ICU team prefers ceftaroline at this time--will continue Discussed with Dr. Cavanaugh. Will continue to follow Consultation Information This patient recommendation is based on a telemedicine consult request which was completed asynchronously through chart review and information provided by the primary physician. The patient was not seen or examined today. The evaluation is consultative in nature and all patient care and treatment decisions can either be accepted or rejected by the patient's primary hospital-based treating physician using their own independent medical judgment for their patient. Business Continuity Coordinator contact information: Please call [facility] . (Phone Number For Physician Use Only) Time Spent Reviewing Chart: 31+ minutes History of Present Illness Reason for Consultation: Staph aureus pneumonia Attending Physician: Pa Younger MD History of Present Illness 64 yo M with COPD, HTN who presented on 09/29 with shortness of breath. On pres entation, he was afebrile, HR 165, BP 116/89 (later dropped as low as 88/64), RR 34, requiring BiPAP. Labs showed WBC 10.41, plt 121, Na 124, K 2.3, Cr 1.16, AST 86, Tbili 1.2, lactate 5.4, procal 4.49. CTA chest with no PE, and RUL and RML pneumonia. He was started on vanc, ceftriaxone, azithromycin, solumedrol and admitted to the ICU. He was intubated on 09/30 due to respiratory failure. A bronchoscopy was performed, which showed a moderate amount of brown-red secretions in the R main which was suctioned out. RML BAL cx sent, currently growing Staph aureus, sensitivities pending. MRSA nares positive. Overnight on 10/01, pt went into afib with RVR, required norepi, vasopressin, phenylephrine. Was persistently febrile. WBC increased to 19.28. Ceftriaxone was changed to Zosyn. Vanc was changed to ceftaroline. Kidney function worsening, with Cr up to 3.15 on 10/02. On phenylephrine and vasopressin. Repeat bronchoscopy done 10/02, which showed moderate amount of clear brown secretions in the R main going into the RLL. BAL culture sent. WBC now downtrending to 13.88. Allergies Allergy/AdvReac Type Severity Reaction Status Date / Time hydrocodone Allergy Unknown hives Verified 12/26/22 16:54 Home Medications Medication Instructions Recorded Confirmed Type nebulizer accessories #1 ea 06/09/22 12/26/22 Rx nebulizers #1 ea 06/09/22 12/26/22 Rx albuterol sulfate 2.5 mg/3 mL 2.5 mg (3 mL) inhalation QID PRN 06/10/22 09/29/24 Rx (0.083 %) solution for nebulization shortness of breath or wheezing #180 mL ipratropium bromide 0.02 % 2.5 ml inhalation QID PRN 06/28/22 09/29/24 Rx solution for inhalation shortness of breath or wheezing #150 mL clobetasol 0.025 % topical cream 1 applic topical DAILY PRN Other 12/26/22 09/29/24 History albuterol sulfate 90 mcg/actuation 2 puff inhalation Q6H PRN 02/01/23 09/29/24 Rx aerosol inhaler shortness of breath or wheezing #18 grams fluticasone fur. 100 mcg-umeclid 1 inh inhalation DAILY #28 ea 01/24/24 09/29/24 Rx 62.5 mcg-vilant 25 mcg inhalat.powder (Trelegy Ellipta) losartan 100 mg tablet 100 mg PO DAILY #14 tabs 01/24/24 09/29/24 Rx Patient History Medical History Acute subdural hematoma Sciatica Surgical History S/P brain surgery S/P wisdom tooth extraction Family History Mother Breast cancer Myocardial infarction Ovarian cancer Father Hodgkin lymphoma Denies family history of Prostate cancer Colorectal cancer Social History Smoking Status: Former smoker Tobacco Type: Cigarettes Age Started Using Tobacco: 17; Age Quit Using Tobacco: 52; packs per day: 1; Second Hand Exposure: No; Do You Dip or Chew Tobacco: No; Hx Alcohol Use: Yes Alcohol type: beer Hx Substance Use: Yes Prescribed Medications: Marijuana Last Used Substance: Unknown Substance Use Type Other:: Patient has medical marijuana card Preferred Language: Citizen Of [place] Communication Ability: Effective Visual Impairment: No Limitations Hearing Ability: Normal Urogynaecologist Required: No Beliefs That Will Affect Care: None marital status: Current Living Situation: Spouse current occupational status: unemployed How many Children do You have: 1 Feels Safe at Home: Yes Childhood Exposure to Second-Hand Smoke: Yes Diet: regular Diet Comment: Regular caffeine: Yes during the past year weight has: remained stable Dental Care, Regularly: No Physical Activity Frequency: 3-4 Times per Week Seatbelt Use: sometimes Sunscreen Use: No Assistive Devices: None Review of System Pt was not seen Physical Exam Physical Exam: Pt was not seen Results & Data Vital Signs (Past 12 Hours) Vital Signs Temp Pulse Pulse Resp BP BP Pulse Ox 10/02/24 13:04 36.9 C 99 H 109/62 10/02/24 13:00 103 H 111/58 L 10/02/24 12:45 120 H 109/63 10/02/24 12:30 105 H 117/61 10/02/24 12:15 104 H 125/65 10/02/24 12:00 106 H 124/61 10/02/24 12:00 36.9 C 99 H 20 98 10/02/24 12:00 99 H 10/02/24 11:45 93 H 102/63 10/02/24 11:39 36.9 C 109 H 21 98 10/02/24 11:33 36.9 C 108 H 20 97 10/02/24 11:30 108 H 124/60 10/02/24 11:27 37.0 C 100 H 20 96 10/02/24 11:15 110 H 105/56 L 10/02/24 11:06 37.0 C 107 H 23 97 10/02/24 11:04 102 H 103/55 L 10/02/24 11:00 37.0 C 105 H 21 97 10/02/24 11:00 10/02/24 11:00 37.0 C 99 H 10/02/24 10:51 37.0 C 108 H 22 97 10/02/24 10:42 37.0 C 106 H 19 97 10/02/24 10:30 37.1 C 95 H 21 98 10/02/24 10:27 37.0 C 99 H 20 98 10/02/24 10:24 10/02/24 10:19 112 H 23 100 10/02/24 10:00 37.0 C 111 H 32 H 85 L 10/02/24 09:57 36.9 C 117 H 18 82 L 10/02/24 09:51 37.0 C 110 H 22 92 10/02/24 09:45 37.0 C 112 H 22 92 10/02/24 09:42 37.0 C 110 H 21 93 10/02/24 09:36 36.9 C 108 H 22 88 L 10/02/24 09:33 37.0 C 111 H 22 87 L 10/02/24 09:27 36.9 C 102 H 26 H 87 L 10/02/24 09:24 36.9 C 108 H 22 89 L 10/02/24 09:15 36.9 C 108 H 21 88 L 10/02/24 09:12 36.9 C 104 H 21 87 L 10/02/24 09:06 36.9 C 109 H 22 87 L 10/02/24 08:48 37.1 C 119 H 22 92 10/02/24 08:27 37.0 C 101 H 26 H 94 10/02/24 08:15 37.0 C 104 H 22 94 10/02/24 08:12 37.0 C 118 H 22 94 10/02/24 08:06 37.0 C 107 H 24 94 10/02/24 08:03 37.1 C 106 H 26 H 94 10/02/24 08:00 108 H 10/02/24 07:48 37.1 C 97 H 23 94 10/02/24 07:42 37.1 C 113 H 23 94 10/02/24 07:33 37.1 C 99 H 22 94 10/02/24 07:30 10/02/24 07:21 37.1 C 108 H 22 94 10/02/24 07:08 105 H 21 92 10/02/24 07:08 10/02/24 07:00 10/02/24 06:51 37.0 C 104 H 22 93 10/02/24 06:45 37.0 C 99 H 22 93 10/02/24 06:36 37.2 C 106 H 22 92 10/02/24 06:24 37.2 C 113 H 22 95 10/02/24 06:18 37.2 C 98 H 22 95 10/02/24 06:09 37.2 C 106 H 23 94 10/02/24 05:54 37.3 C 108 H 22 94 10/02/24 05:27 37.2 C 119 H 23 96 10/02/24 05:00 37.2 C 98 H 25 H 95 10/02/24 04:45 37.2 C 107 H 23 96 10/02/24 04:36 37.2 C 112 H 23 96 10/02/24 04:15 37.2 C 100 H 23 96 10/02/24 04:00 37.3 C 112 H 23 96 10/02/24 04:00 104 H 28 H 97 10/02/24 03:30 37.3 C 115 H 25 H 96 10/02/24 03:18 37.4 C 119 H 25 H 96 O2 Del Method FiO2 10/02/24 13:04 10/02/24 13:00 10/02/24 12:45 10/02/24 12:30 10/02/24 12:15 10/02/24 12:00 10/02/24 12:00 10/02/24 12:00 10/02/24 11:45 10/02/24 11:39 10/02/24 11:33 10/02/24 11:30 10/02/24 11:27 10/02/24 11:15 10/02/24 11:06 10/02/24 11:04 10/02/24 11:00 10/02/24 11:00 70 10/02/24 11:00 10/02/24 10:51 10/02/24 10:42 10/02/24 10:30 10/02/24 10:27 10/02/24 10:24 Mechanical Vent 10/02/24 10:19 70 10/02/24 10:00 10/02/24 09:57 10/02/24 09:51 10/02/24 09:45 10/02/24 09:42 10/02/24 09:36 10/02/24 09:33 10/02/24 09:27 10/02/24 09:24 10/02/24 09:15 10/02/24 09:12 10/02/24 09:06 10/02/24 08:48 10/02/24 08:27 10/02/24 08:15 10/02/24 08:12 10/02/24 08:06 10/02/24 08:03 10/02/24 08:00 10/02/24 07:48 10/02/24 07:42 10/02/24 07:33 10/02/24 07:30 Mechanical Vent 40 10/02/24 07:21 10/02/24 07:08 4 10/02/24 07:08 Mechanical Vent 10/02/24 07:00 4 10/02/24 06:51 10/02/24 06:45 10/02/24 06:36 10/02/24 06:24 10/02/24 06:18 10/02/24 06:09 10/02/24 05:54 10/02/24 05:27 10/02/24 05:00 10/02/24 04:45 10/02/24 04:36 10/02/24 04:15 10/02/24 04:00 10/02/24 04:00 40 10/02/24 03:30 10/02/24 03:18 Laboratory Results Short CBC 10/02/24 Range/Units 04:55 WBC 13.88 H (4.8-10.8) K/ul Hgb 12.4 L (14.0-18.0) g/dl Hct 36.1 L (42.0-52.0) % Plt Count 168 (130-400) K/uL BMP 10/02/24 04:55 Sodium 128 L Potassium 3.7 Chloride 99 Carbon Dioxide 16 L BUN 53 H Creatinine 3.15 H D Glucose 161 H Calcium 6.9 L Diagnostic Findings Chest X-Ray 10/02/24 00:00 XR chest 1V portable CLINICAL HISTORY: POST BRONCH AND S/P DAILYSIS CATH PLACEMENT COMPARISON STUDY: 10/02/2024 FINDINGS: Endotracheal tube tip is just below the thoracic inlet. Nasogastric tube tip is off the field of view inferiorly. Right central catheter tip is in the SVC. Stable left central catheter. There is stable mild cardiomegaly with mild pulmonary vascular congestion. Stable dense opacity at the right mid and lower lung. No pneumothorax seen. IMPRESSION: No pneumothorax. Otherwise as described. ACT 112: Negative or not required by law. Electronically signed by: Herman Brush M.D. 10/02/2024 10:21 AM Chest X-Ray 10/02/24 07:53 XR chest 1V portable CLINICAL HISTORY: f/u COMPARISON STUDY: 10/01/2024 FINDINGS: Endotracheal tube tip is stable between the thoracic inlet and the kimberley. Nasogastric tube tip is off the field of view inferiorly. Stable left central catheter. Stable dense opacity at the right mid and lower lung with obscuration of the right hemidiaphragm. Left lung remains aerated. No pneumothorax seen. IMPRESSION: Stable exam. ACT 112: Negative or not required by law. Electronically signed by: Herman Brush M.D. 10/02/2024 8:39 AM Medications Administered Current Inpatient Medications Acetaminophen (Acetaminophen 500 Mg Tab) 500 mg PO Q4H PRN PRN Reason: Fever or headache Stop: 10/29/24 16:58 Last Admin: 09/29/24 17:10 Dose: 500 mg Aspirin (Aspirin 81 Mg Ectab) 81 mg PO QAM ANA Stop: 10/30/24 08:59 Last Admin: 09/30/24 09:56 Dose: Not Given Budesonide (Budesonide 0.25 Mg/2 Ml Vial (Pulmicort)) 0.25 mg NEB BIDR ANA Stop: 10/30/24 06:59 Last Admin: 10/02/24 07:00 Dose: 0.25 mg Dextrose (Dextrose 50% 50 Ml Syringe) 25 - 50 ml IV UD PRN; Protocol PRN Reason: Hypoglycemia Protocol Stop: 10/31/24 00:18 Fentanyl Citrate (Fentanyl Bolus From Bag) 50 mcg IV Q60M PRN PRN Reason: Pain or Agitation Stop: 10/14/24 08:15 Last Admin: 10/02/24 05:34 Dose: 50 mcg Glucagon (Glucagon For Inj 1 Mg Vial) 1 mg SQ UD PRN; Protocol PRN Reason: Hypoglycemia Protocol Stop: 10/31/24 00:18 Glucose (Glucose 40% Gel 15 Gm Tube) 15 - 30 gm PO UD PRN; Protocol PRN Reason: Hypoglycemia Protocol Stop: 10/31/24 00:18 Glucose (Glucose 10 Tab/Tube) 4 - 8 tab PO UD PRN; Protocol PRN Reason: Hypoglycemia Protocol Stop: 10/31/24 00:18 Azithromycin (Zithromax) 500 mg in 255 mls @ 127.5 mls/hr IV Q24H [facility] Stop: 10/06/24 14:59 Last Admin: 10/02/24 15:53 Dose: 127 mls/hr Pantoprazole Sodium (Protonix) 40 mg in 10 mls @ 5 mls/min IV BID [facility] Stop: 10/30/24 08:59 Last Admin: 10/02/24 08:03 Dose: 5 mls/min Fentanyl Citrate (Fentanyl Citrate) 2,500 mcg in 250 mls @ 7.5 mls/hr IV .[id number] ANA; Protocol Stop: 10/14/24 08:29 Last Admin: 10/02/24 14:22 Dose: 75 mcg/hr, 7.5 mls/hr Propofol (Diprivan) 1,000 mg in 100 mls @ 15.684 mls/hr IV .Q6H23M [facility]; Protocol Stop: 10/03/24 08:29 Last Admin: 10/02/24 15:48 Dose: 20 mcg/kg/min, 15.7 mls/hr Thiamine HCl 500 mg/ Sodium (Chloride) 55 mls @ 210 mls/hr IV Q8H ANA Stop: 10/03/24 08:59 Last Infusion: 10/02/24 08:47 Dose: Infused Hydrocortisone Sodium (Succinate 50 mg/ Syringe) 1 mls @ 4 mls/min IV Q6 ANA Stop: 10/30/24 11:59 Last Admin: 10/02/24 12:55 Dose: 4 mls/min Folic Acid 1 mg/ Syringe 10 mls @ 5 mls/min IV DAILY ANA Stop: 10/30/24 09:59 Last Admin: 10/02/24 08:03 Dose: 5 mls/min Acetaminophen (Ofirmev) 1,000 mg in 100 mls @ 400 mls/hr IV Q8H PRN; Protocol PRN Reason: FEVER OR PAIN Stop: 10/03/24 09:44 Last Infusion: 10/01/24 21:59 Dose: Infused Vasopressin 20 units/ Sodium (Chloride) 101 mls @ 12.12 mls/hr IV .Q8H20M ANA Stop: 10/31/24 00:44 Last Admin: 10/02/24 12:26 Dose: 0.04 unit/min, 12.1 mls/hr Heparin Sodium/Dextrose (Heparin 87190 Unit/500 Ml D5w) 25,000 units in 500 mls @ 32 mls/hr IV .[id number] ANA; Protocol Stop: 10/31/24 01:59 Last Titration: 10/02/24 12:26 Dose: 1,600 units/hr, 32 mls/hr Amiodarone HCl/Dextrose (Nexterone / D5w) 360 mg in 200 mls @ 16.667 mls/hr IV .Q12H ANA Stop: 10/31/24 07:44 Last Admin: 10/02/24 08:41 Dose: 0.5 mg/min, 16.7 mls/hr Norepinephrine Bitartrate (Levophed/Nss) 16 mg in 250 mls @ 24.506 mls/hr IV .[id number] ANA; Protocol Stop: 10/31/24 03:59 Last Admin: 10/02/24 08:21 Dose: Not Given Insulin Human Regular 250 (units/ Sodium Chloride) 250 mls @ 1.1 mls/hr IV .Q24H ANA; Protocol Stop: 10/31/24 06:14 Last Titration: 10/02/24 07:11 Dose: 1.1 units/hr, 1.1 mls/hr Phenylephrine HCl (Phenylephrine/Nss) 25 mg in 250 mls @ 39.69 mls/hr IV .Q6H18M ANA; Protocol Stop: 10/31/24 07:44 Last Admin: 10/02/24 10:36 Dose: 0.5 mcg/kg/min, 39.7 mls/hr Piperacillin Sod/Tazobactam Sod (Zosyn) 4.5 gm in 100 mls @ 25 mls/hr IV Q12 ANA; Protocol Stop: 10/07/24 20:59 Ceftaroline Fosamil 200 mg/ (Sodium Chloride) 256.6667 mls @ 270 mls/hr IV Q12 ANA; Protocol Stop: 10/07/24 20:59 Insulin Glargine (Lantus Per Unit Charge) 0 units SC HS ONE; Protocol Stop: 10/02/24 21:01 Levalbuterol HCl (Levalbuterol 1.25 Mg/3 Ml Neb) 1.25 mg NEB Q8R ANA Stop: 10/30/24 14:59 Last Admin: 10/02/24 15:33 Dose: 1.25 mg Miscellaneous (Carbohydrates For Hypoglycemia ) 15 - 30 gm PO UD PRN PRN Reason: Hypoglycemia Protocol Stop: 10/31/24 00:18 Miscellaneous Information (Pharmacy Glycemic Mgmt Consult) 1 each N/A UD PRN PRN Reason: Consult Stop: 10/31/24 09:59 Nutritional Formula (Peptamen Intense Vhp 1.0 Martínez 1,000 Ml Bag) 0 ml OG .See Protocol ANA; Protocol Stop: 10/30/24 10:29 Last Admin: 10/01/24 18:20 Dose: 1,000 ml Propofol (Propofol Bolus From Bag) 20 mg IV Q5M PRN PRN Reason: Sedation Stop: 10/03/24 08:22 Last Admin: 10/01/24 20:35 Dose: 20 mg Sterile Water (Tube Feeding Water Flush) 30 ml GT Q4H ANA Stop: 10/30/24 10:29 Last Admin: 10/02/24 14:30 Dose: 30 ml
[2024-10-02] MEDS: LINEZOLID 600 MG/300 ML BAG IV SCH (16:52)
[2024-10-02 19:57] LABS: ANTI-Xa, UFH(UnfractionatedHep 0.32 IU/ml (0.3-0.7)
[2024-10-02] MEDS: LANTUS PER UNIT CHARGE SC ONE (20:47)
[2024-10-02] MEDS ORDERED: PIPERACILLIN/TAZOBACTAM 4.5 GM/100 ML BAG IV SCH (21:00)
[2024-10-02] MEDS ORDERED: CEFTAROLINE FOSAMIL ACETATE 200 MG in SODIUM CHLORIDE 0.9% 250 ML IV SCH (21:00)
[2024-10-03 04:37] LABS: Hematocrit (blood only) 33.9 % (42.0-52.0); Hemoglobin 11.9 g/dl (14.0-18.0); Mean Corpuscular Hemoglobin 32.7 pg (25.0-34.0); Mean Corpuscular Volume 93.1 fL (80.0-100.0); Platelet Count 217 K/uL (130-400); RDW Standard Deviation 45.5 fL (36.4-46.3); Red Blood Count 3.64 M/uL (4.70-6.10); White Blood Count 16.78 K/ul (4.8-10.8)
[2024-10-03 04:53] LABS: Anion Gap 13.0 (3-11); Blood Urea Nitrogen 65.0 mg/dl (6-23); Calcium 6.9 mg/dl (8.6-10.3); Carbon Dioxide 19.0 mmol/L (21-32); Chloride 99.0 mmol/L (98-107); Creatinine Clr Calc Pharmacy 28.3 ml/min; Glucose 167.0 mg/dl (70-99(Fasting)); Potassium 3.3 mmol/L (3.5-5.1); Sodium 131.0 mmol/L (136-145)
[2024-10-03 05:15] LABS: ANTI-Xa, UFH(UnfractionatedHep 0.29 IU/ml (0.3-0.7)
--- NOTE | 2024-10-03 07:55 | Critical Care Progress Note ---
Date of Service October 03, 2024 Assessment & Plan (1) Pneumonia: (2) Pleural effusion: (3) Acute hypoxemic respiratory failure: (4) Thrombocytopenia: (5) Airway intubation performed without difficulty: (6) History of tobacco abuse: (7) Respiratory failure: (8) COPD (chronic obstructive pulmonary disease) with emphysema: (9) Severe sepsis: (10) Acute non-ST elevation myocardial infarction (NSTEMI): (11) Alcohol withdrawal delirium: Plan Impression: 64-year-old male with severe obstructive lung disease at baseline admitted with multifocal pneumonia and hypoxemic respiratory failure with concomitant lactic acidosis. Lactate is improved with IV fluids. He is currently on antibiotics. He was placed on noninvasive positive pressure ventilation admitted to the ICU. Recommendations: Neurologic: Propofol and fentanyl for ICU sedation Midazolam pushes as needed agitation/restlessness MRI brain 09/30/2024: Chronic right cerebellar infarct, no evidence of intracranial mass, no acute changes -- Acute alcohol withdrawal History of heavy alcohol use Continue with high-dose thiamine and folic acid Cardiovascular: 2D echo 09/30/2024: Moderate LV dysfunction, EF 40%, RV not well-visualized --Septic shock Sources is multifocal pneumonia --> BAL growing Staph aureus Urine Legionella positive Continue with antibiotics Vasopressor support to keep MAP greater than 65 --New onset A-fib RVR with new onset CHF Could be all related to underlying sepsis Amiodarone bolus then drip started on 09/30/2024 -- Elevated troponins Likely type II WI Continue to trend --Hypertension On losartan at home --Prolonged QTc Avoid QT prolonging medication Continue to monitor Respiratory: CTA chest 09/29/2024 personally reviewed: Centrilobular and paraseptal emphysema appreciated bilaterally Dense consolidative process appreciated in the right upper lobe as well as right middle lobe Minimal right-sided pleural effusion No significant mediastinal lymphadenopathy -- VDRF Intubated 09/30/2024 Likely secondary to multifocal pneumonia Follow-up bronc cultures from 09/30/2024 S/p repeat bronc 10/02/2024, thin clear secretions obstructing the right lower lobe which were suctioned out Continue with ventilatory support Keep RASS -1 Daily sedation holidays and SBT's Nasal MRSA negative Continue broad-spectrum antibiotics On steroids for severe pneumonia --Small right-sided pleural effusion Appreciated on POCUS 10/01/2024 -- COPD with emphysema On Trelegy 100 at home Continue with nebulized budesonide and Perforomist GI: -- Occult blood positive Monitor H&H -- Mild transaminitis Continue to trend Renal: -- NAOMY --> acute renal failure Dialysis started 10/02/2024 Nephrology has been consulted Endocrine: ICU hypoglycemia protocol ID: --Severe multifocal community-acquired pneumonia Procalcitonin 29.2 MRSA positive QTc 418 Rocephin changed to Zosyn on 09/30/2024 Vancomycin changed to ceftaroline on 10/01/2024 Bronch culture growing Staph aureus Urine Legionella antigen came positive on 10/03/2024 Heme-onc: -- Thrombocytopenia --> resolved Likely secondary to sepsis versus antibiotics Continue to trend --Prophylaxis VTE: Heparin drip GI: Pantoprazole Lines: Left IJ, left radial, peripheral, positive [place], right IJ dialysis catheter 10/02/2024 Diet: Tube feeds Plan: In/out: +3.4 L, urine output 119 mL, +18 L since coming to the hospital Chest x-ray on personal review does not show any significant change compared to yesterday Given the urine Legionella is positive, restart azithromycin for 3 more days to complete the course of 10 days Continue with ceftaroline and coordination with infectious disease Start titrating off hydrocortisone Amiodarone drip will be transitioned to p.o. amiodarone. Calcium and potassium being replaced I have personally spent 38 minutes of critical care time in the direct management of this patient. This is a life/limb threatening event. This includes time spent evaluating patient, direct bedside care, chart review, placing orders, interpretation of diagnostic studies, discussion with consultants, patient, and family members, as well as other required patient management activities. This time is exclusive of all separately billable procedures, and teaching time and separate from and in addition to any other critical care service time. Please note the above document was generated using voice recognition software. It may contain grammatical, syntax or spelling errors. Admission and Anticipated Discharge Date Admission Date: September 29, 2024 Subjective Patient seen and examined at bedside. No acute distress, no adverse events overnight He was on 0.5 of phenylephrine 20 of propofol and 75 of fentanyl Unfortunately still not making any urine RASS -2 On decreasing the sedation he does wake up and follow simple commands. He has been afebrile Review of Systems 2 Review of Systems: Unobtainable due to endotracheal tube Physical Exam 2 Physical Exam: Constitutional: No acute distress HEENT: PERRLA Respiratory system: Decreased air entry bilaterally, minimal expiratory wheeze on the left side, no rhonchi, positive crackles bilaterally CVS: S1-S2 positive, no murmurs or gallops, irregular Abdomen: Soft, nontender, nondistended, positive bowel sounds x4, obese Extremities: + 1 pulses bilaterally radialis/ dorsalis pedis, no cyanosis, p ositive pitting edema appreciated bilateral lower extremity as well as upper extremity Neuro: Intubated, sedated, RASS -2 Psych: Unable to assess G/U: Positive [place] Torre Skin: no rashes, warm and dry Lymphatic: no cervical or axillary lymphadenopathy Results & Data Results & Data Vital Signs (Past 12 Hours) Vital Signs Temp Pulse Pulse Resp Pulse Ox O2 Del Method FiO2 10/03/24 07:09 102 H 22 96 40 10/03/24 07:09 102 H 22 96 Mechanical Vent 40 10/03/24 06:30 36.6 C 93 H 25 H 95 10/03/24 06:00 36.7 C 98 H 23 95 10/03/24 05:33 36.7 C 104 H 27 H 10/03/24 05:00 36.7 C 89 22 98 10/03/24 04:45 36.8 C 86 25 H 97 10/03/24 04:00 36.9 C 101 H 25 H 98 10/03/24 03:47 40 10/03/24 03:39 36.9 C 104 H 24 97 10/03/24 03:12 37.0 C 105 H 25 H 97 10/03/24 02:41 115 H 26 H 93 40 10/03/24 02:30 37.0 C 105 H 22 97 10/03/24 02:21 37.0 C 116 H 22 96 10/03/24 01:30 37.1 C 111 H 24 96 10/03/24 01:00 37.1 C 99 H 29 H 95 10/03/24 00:30 37.1 C 113 H 25 H 94 10/03/24 00:09 37.1 C 106 H 25 H 95 10/03/24 00:00 115 H 10/02/24 23:44 40 10/02/24 23:42 108 H 25 H 99 50 10/02/24 23:33 37.1 C 115 H 21 96 10/02/24 23:03 37.2 C 100 H 24 100 10/02/24 22:33 37.4 C 95 H 22 98 10/02/24 22:00 115 H 21 97 10/02/24 21:39 37.5 C 113 H 18 99 10/02/24 21:03 37.7 C H 120 H 24 93 10/02/24 20:33 37.8 C H 102 H 20 93 10/02/24 20:30 113 H 26 H 94 50 10/02/24 20:00 37.8 C H 88 22 98 10/02/24 20:00 50 Laboratory Results 10/03/24 04:10 10/03/24 04:10 Coding Level of Care Code 69585 CRITICAL CARE 1ST 30-74M Diagnoses Pneumonia J18.9 Pleural effusion J90 Acute hypoxemic respiratory failure J96.01 Thrombocytopenia D69.6 Airway intubation performed without difficulty Z78.9 History of tobacco abuse Z87.891 Respiratory failure J96.90 COPD (chronic obstructive pulmonary disease) with emphysema J43.9 Severe sepsis A41.9; R65.20 Acute non-ST elevation myocardial infarction (NSTEMI) I21.4 Alcohol withdrawal delirium F10.931
--- NOTE | 2024-10-03 08:21 | XRay Report ---
XR chest 1V portable CLINICAL HISTORY: f/u COMPARISON STUDY: 10/02/2024 FINDINGS: Endotracheal tube tip is stable between the thoracic inlet and the kimberley. Nasogastric tube tip is off the field of view inferiorly. Bilateral central catheters are stable. There is stable mil d cardiomegaly without pulmonary vascular congestion. Stable dense opacity at the right mid and lower lung with obscuration of the right hemidiaphragm. No pneumothorax seen. IMPRESSION: Stable exam. ACT 112: Negative or not required by law. Electronically signed by: Herman Brush M.D. 10/03/2024 8:19 AM
[2024-10-03] MEDS: POTASSIUM CHLORIDE / WTR 20 MEQ/100 ML PLCT IV SCH (08:57)
[2024-10-03] MEDS: CALCIUM GLUCONATE 1,000 MG/60 ML BAG IV STA (09:26)
--- NOTE | 2024-10-03 09:46 | Nephrology Progress Note ---
Date of Service October 03, 2024 Assessment & Plan (1) NAOMY (acute kidney injury): Plan: Oliguric. NAOMY consistent with ischemic ATN. Start HD on October 02. Orders for HD today have been entered into the EHR and reviewed with the diabetes physician. Large obligatory intake. Hemodynamically requiring vasopressor support and with atrial fibrillation with labile HR. Medications are currently appropriately dosed for kidney function. Vanco dosing per pharmacy. Document strict I/O's. Repeat metabolic profile tomorrow AM. (2) Severe sepsis with septic shock: Plan: Antibiotic therapy and vasopressor support per ICU. (3) Acute hypoxemic respiratory failure: Plan: Remains ventilator dependent. Admission and Anticipated Discharge Date Admission Date: September 29, 2024 Subjective No acute events overnight. Completed HD yesterday without complications. Jamie remains oliguric. Mechanical ventilation support continues. Obligatory intake remains high and fluid overload persist. Atrial fibrillation on monitor at ~100 BPM. Amiodarone gtt infusing. Vaso and phenylephrine gtts are being weaned. No fevers. Review of Systems Review of Systems: Unobtainable due to endotracheal tube and Unobtainable due to reduced consciousness Physical Exam Constitutional: + morbidly obese, + mechanically ventila ivet and + edematous; no acute distress Eyes: + anicteric sclerae Neck: normal visual inspection and + thick neck RIJ TDC Respiratory: Auscultation: + diminished lung sounds Cardiovascular: Rate/Rhythm: + tachycardic and + irregularly irregular Extremities: + edema Musculoskeletal: Extremities: no cyanosis Genitourinary: [place] draining small amount of yellow urine Results & Data Vital Signs (Past 12 Hours) Vital Signs Temp Pulse Pulse Resp Pulse Ox O2 Del Method FiO2 10/03/24 08:59 36.4 C L 104 H 10/03/24 07:09 102 H 22 96 40 10/03/24 07:09 102 H 22 96 Mechanical Vent 40 10/03/24 06:30 36.6 C 93 H 25 H 95 10/03/24 06:00 36.7 C 98 H 23 95 10/03/24 05:33 36.7 C 104 H 27 H 10/03/24 05:00 36.7 C 89 22 98 10/03/24 04:45 36.8 C 86 25 H 97 10/03/24 04:00 36.9 C 101 H 25 H 98 10/03/24 03:47 40 10/03/24 03:39 36.9 C 104 H 24 97 10/03/24 03:12 37.0 C 105 H 25 H 97 10/03/24 02:41 115 H 26 H 93 40 10/03/24 02:30 37.0 C 105 H 22 97 10/03/24 02:21 37.0 C 116 H 22 96 10/03/24 01:30 37.1 C 111 H 24 96 10/03/24 01:00 37.1 C 99 H 29 H 95 10/03/24 00:30 37.1 C 113 H 25 H 94 10/03/24 00:09 37.1 C 106 H 25 H 95 10/03/24 00:00 115 H 10/02/24 23:44 40 10/02/24 23:42 108 H 25 H 99 50 10/02/24 23:33 37.1 C 115 H 21 96 10/02/24 23:03 37.2 C 100 H 24 100 10/02/24 22:33 37.4 C 95 H 22 98 10/02/24 22:00 115 H 21 97 Laboratory Results Laboratory Results - last 24 hr 09/29/24 10/02/24 10/02/24 15:50 09:29 11:28 WBC RBC Hgb Hct MCV MCH MCHC RDW Std Deviation RDW Coeff of Al[place] Plt Count MPV Absolute Nucleated RBC Nucleated RBC % (auto) Heparin Anti-Xa, Unfract Sodium Potassium Chloride Carbon Dioxide Anion Gap BUN Creatinine Est Cr Clr Drug Dosing eGFR BUN/Creatinine Ratio Glucose POC Glucose (other) 180 H Calcium Phosphorus Hep Bs Antigen Negative Hep Bs Antibody Non-Immune Hep Bs Antibody, Quant 3.09 Legionella sp (PCR) Urine Legionella Ag SEE NOTE A 10/02/24 10/02/24 10/02/24 11:31 13:06 16:06 WBC RBC Hgb Hct MCV MCH MCHC RDW Std Deviation RDW Coeff of Al[place] Plt Count MPV Absolute Nucleated RBC Nucleated RBC % (auto) Heparin Anti-Xa, Unfract 0.27 L Sodium Potassium Chloride Carbon Dioxide Anion Gap BUN Creatinine Est Cr Clr Drug Dosing eGFR BUN/Creatinine Ratio Glucose POC Glucose (other) 162 H 171 H Calcium Phosphorus Hep Bs Antigen Hep Bs Antibody Hep Bs Antibody, Quant Legionella sp (PCR) Urine Legionella Ag 10/02/24 10/02/24 10/02/24 18:38 19:57 22:23 WBC RBC Hgb Hct MCV MCH MCHC RDW Std Deviation RDW Coeff of [place] Plt Count MPV Absolute Nucleated RBC Nucleated RBC % (auto) Heparin Anti-Xa, Unfract 0.32 Sodium Potassium Chloride Carbon Dioxide Anion Gap BUN Creatinine Est Cr Clr Drug Dosing eGFR BUN/Creatinine Ratio Glucose POC Glucose (other) 196 H 179 H Calcium Phosphorus Hep Bs Antigen Hep Bs Antibody Hep Bs Antibody, Quant Legionella sp (PCR) Urine Legionella Ag 10/02/24 10/03/24 10/03/24 Unknown 02:45 04:10 WBC 16.78 H RBC 3.64 L Hgb 11.9 L Hct 33.9 L MCV 93.1 MCH 32.7 MCHC 35.1 RDW Std Deviation 45.5 RDW Coeff of Al[place] 13.3 Plt Count 217 MPV 12.3 Absolute Nucleated RBC 0.03 Nucleated RBC % (auto) 0.2 Heparin Anti-Xa, Unfract 0.29 L Sodium 131 L Potassium 3.3 L Chloride 99 Carbon Dioxide 19 L Anion Gap 13 H BUN 65 H Creatinine 3.71 H D Est Cr Clr Drug Dosing 28.3 eGFR 17.54 BUN/Creatinine Ratio 17.5 Glucose 167 H POC Glucose (other) 170 H Calcium 6.9 L Phosphorus 5.6 H Hep Bs Antigen Hep Bs Antibody Hep Bs Antibody, Quant Legionella sp (PCR) Pending Urine Legionella Ag Diagnostic Findings XR chest 1V portable COMPARISON STUDY: 10/02/2024 FINDINGS: Endotracheal tube tip is stable between the thoracic inlet and the kimberley. Nasogastric tube tip is off the field of view inferiorly. Bilateral central catheters are stable. There is stable mild cardiomegaly without pulmonary vascular congestion. Stable dense opacity at the right mid and lower lung with obscuration of the right hemidiaphragm. No pneumothorax seen. IMPRESSION: Stable exam. PG Care Time/CCT Total # of Minutes Spent Total Time Spent with Patient: Total time spent is greater than 50% in coordination of care (as documented) at patient's floor/unit and/or counseling patient: Coding Level of Care Code 84370 SUB INP/OBS CARE 3/50MIN Diagnoses NAOMY (acute kidney injury) N17.9 Severe sepsis with septic shock A41.9; R65.21 Acute hypoxemic respiratory failure J96.01
[2024-10-03] MEDS: AMIODARONE 200 MG TAB PO SCH (10:03)
--- NOTE | 2024-10-03 11:16 | Hospitalist Progress Note ---
Date of Service October 03, 2024 Assessment & Plan (1) Hypokalemia: (2) Acute exacerbation of chronic obstructive pulmonary disease: (3) Respiratory failure: (4) COPD (chronic obstructive pulmonary disease) with emphysema: (5) Hypertension: (6) Acute hyponatremia: (7) Acute non-ST elevation myocardial infarction (NSTEMI): (8) Fall: (9) Head injury: Plan This is a 64-year-old morbidly obese male with a history of COPD, hypertension who presents with severe respiratory distress, now on BiPAP. Chest x-ray showed pneumonia. He was given DuoNebs, steroids, ceftriaxone in the emergency room. Labs significant for lactic acidosis of 5, anion gap metabolic acidosis, hyponatremia, hypokalemia, elevated troponin, elevated procalcitonin. His blood pressure dropped while in the ER. He is being admitted to the ICU with acute hypoxic respiratory failure, pneumonia with severe sepsis #Acute hypoxic respiratory failure Due to a combination of COPD exacerbation and pneumonia. Possibly MRSA pneumonia Bronchial lavage growing MRSA Currently on ceftaroline and azithromycin Consult infectious disease. Zosyn discontinued Currently intubated #Community-acquired pneumonia/septic shock Chest x-ray shows right upper and middle lobe consolidation. Possible MRSA p neumonia Bronchial lavage growing staph Currently on ceftaroline and azithromycin He was hypotensive, tachycardic, tachypneic, with lactic acidosis of 5. Met criteria for severe sepsis Blood cultures obtained Monitor in ICU On pressors, requiring less support today on Solu-Cortef #Acute kidney injury ATN due to septic shock Creatinine still rising Still oliguric/anuric Tolerated dialysis yesterday. Now on dialysis again today. Nephrology involved Monitor #Atrial fibrillation Started on amiodarone drip and heparin drip New onset Complicated by CHF Monitor thrombocytopenia Hemoccult positive few days ago. Monitor. #Anion gap metabolic acidosis/lactic acidosis Most likely due to sepsis Had improved but needed another bicarb push #Hyponatremia/hypokalemia Hyponatremia improved Renal function worsened #Elevated troponin Patient does not complain of any chest pain EKG reviewed. No ST-T wave changes. Troponins went up higher overnight. Echocardiogram reviewed. Technically difficult study. Most likely demand ischemia due to hypoxia and tachycardia. #Subacute/chronic right cerebellar infarct CT head was done because the patient had a fall with head trauma last night. It showed a subacute/chronic right cerebellar infarct MRI showed a chronic cerebellar infarct Patient has a history of intracranial hemorrhage most likely subdural hematoma when he was life flighted from [facility] to [facility]. No records yet #Hypertension Blood pressure is rather on the low side. On vasopressors Continue to hold losartan #Alcohol withdrawal Per nurse, patient was starting to get delirious and was hallucinating Currently on propofol and fentanyl Thiamine and folic acid added #COPD Budesonide twice daily added by director teen post VTE prophylaxis: Lovenox Full code Admission and Anticipated Discharge Date Admission Date: September 29, 2024 Subjective Patient tolerated hemodialysis yesterday. Now on dialysis again. Requiring less pressors today. Patient is still not making urine. Review of Systems Review of Systems: Unobtainable due to endotracheal tube Physical Exam Physical Exam: General: Morbidly obese patient. Currently intubated and sedated. Currently on dialysis in the ICU Heart: S1, S2/tachycardic, irregular rhythm., no murmur rubs or gallops Lungs: Equal air entry bilaterally. Abdomen: Soft/nontender/nondistended. No hepatosplenomegaly Extremities: No clubbing/cyanosis. No edema Behavior: Unable to assess due to intubation and sedation Results & Data Results & Data Vital Signs (Past 12 Hours) Vital Signs Temp Pulse Pulse Resp BP Pulse Ox O2 Del Method 10/03/24 10:03 103 H 22 95 10/03/24 10:00 96 H 123/69 10/03/24 09:30 95 H 119/62 10/03/24 09:12 36.4 C L 92 H 21 95 10/03/24 09:07 94 H 133/64 10/03/24 08:59 36.4 C L 104 H 10/03/24 08:00 36.5 C 100 H 22 96 10/03/24 07:09 102 H 22 96 10/03/24 07:09 102 H 22 96 Mechanical Vent 10/03/24 07:00 36.6 C 82 21 96 10/03/24 06:30 36.6 C 93 H 25 H 95 10/03/24 06:00 36.7 C 98 H 23 95 10/03/24 05:33 36.7 C 104 H 27 H 10/03/24 05:00 36.7 C 89 22 98 10/03/24 04:45 36.8 C 86 25 H 97 10/03/24 04:00 36.9 C 101 H 25 H 98 10/03/24 03:47 10/03/24 03:39 36.9 C 104 H 24 97 10/03/24 03:12 37.0 C 105 H 25 H 97 10/03/24 02:41 115 H 26 H 93 10/03/24 02:30 37.0 C 105 H 22 97 10/03/24 02:21 37.0 C 116 H 22 96 10/03/24 01:30 37.1 C 111 H 24 96 10/03/24 01:00 37.1 C 99 H 29 H 95 10/03/24 00:30 37.1 C 113 H 25 H 94 10/03/24 00:09 37.1 C 106 H 25 H 95 10/03/24 00:00 115 H 10/02/24 23:44 10/02/24 23:42 108 H 25 H 99 10/02/24 23:33 37.1 C 115 H 21 96 FiO2 10/03/24 10:03 40 10/03/24 10:00 10/03/24 09:30 10/03/24 09:12 40 10/03/24 09:07 10/03/24 08:59 10/03/24 08:00 40 10/03/24 07:09 40 10/03/24 07:09 40 10/03/24 07:00 40 10/03/24 06:30 10/03/24 06:00 10/03/24 05:33 10/03/24 05:00 10/03/24 04:45 10/03/24 04:00 10/03/24 03:47 40 10/03/24 03:39 10/03/24 03:12 10/03/24 02:41 40 10/03/24 02:30 10/03/24 02:21 10/03/24 01:30 10/03/24 01:00 10/03/24 00:30 10/03/24 00:09 10/03/24 00:00 10/02/24 23:44 40 10/02/24 23:42 50 10/02/24 23:33 Laboratory Results Abnormal lab results 09/29/24 10/02/24 10/02/24 Range/Units 15:50 11:28 11:31 WBC (4.8-10.8) K/ul RBC (4.70-6.10) M/uL Hgb (14.0-18.0) g/dl Hct (42.0-52.0) % Heparin Anti-Xa, Unfract 0.27 L (0.3-0.7) IU/ml Sodium (136-145) mmol/L Potassium (3.5-5.1) mmol/L Carbon Dioxide (21-32) mmol/L Anion Gap (3-11) BUN (6-23) mg/dl Creatinine (0.6-1.4) mg/dl Glucose (70-99(Fasting)) mg/dl POC Glucose (other) 180 H (70-99) mg/dl Calcium (8.6-10.3) mg/dl Phosphorus (2.5-4.9) mg/dl Urine Legionella Ag SEE NOTE A 10/02/24 10/02/24 10/02/24 Range/Units 13:06 16:06 19:57 WBC (4.8-10.8) K/ul RBC (4.70-6.10) M/uL Hgb (14.0-18.0) g/dl Hct (42.0-52.0) % Heparin Anti-Xa, Unfract (0.3-0.7) IU/ml Sodium (136-145) mmol/L Potassium (3.5-5.1) mmol/L Carbon Dioxide (21-32) mmol/L Anion Gap (3-11) BUN (6-23) mg/dl Creatinine (0.6-1.4) mg/dl Glucose (70-99(Fasting)) mg/dl POC Glucose (other) 162 H 171 H 196 H (70-99) mg/dl Calcium (8.6-10.3) mg/dl Phosphorus (2.5-4.9) mg/dl Urine Legionella Ag 10/02/24 10/03/24 10/03/24 Range/Units 22:23 02:45 04:10 WBC 16.78 H (4.8-10.8) K/ul RBC 3.64 L (4.70-6.10) M/uL Hgb 11.9 L (14.0-18.0) g/dl Hct 33.9 L (42.0-52.0) % Heparin Anti-Xa, Unfract 0.29 L (0.3-0.7) IU/ml Sodium 131 L (136-145) mmol/L Potassium 3.3 L (3.5-5.1) mmol/L Carbon Dioxide 19 L (21-32) mmol/L Anion Gap 13 H (3-11) BUN 65 H (6-23) mg/dl Creatinine 3.71 H D (0.6-1.4) mg/dl Glucose 167 H (70-99(Fasting)) mg/dl POC Glucose (other) 179 H 170 H (70-99) mg/dl Calcium 6.9 L (8.6-10.3) mg/dl Phosphorus 5.6 H (2.5-4.9) mg/dl Urine Legionella Ag Diagnostic Findings Chest X-Ray 10/03/24 07:54 XR chest 1V portable CLINICAL HISTORY: f/u COMPARISON STUDY: 10/02/2024 FINDINGS: Endotracheal tube tip is stable between the thoracic inlet and the kimberley. Nasogastric tube tip is off the field of view inferiorly. Bilateral central catheters are stable. There is stable mild cardiomegaly without pulmonary vascular congestion. Stable dense opacity at the right mid and lower lung with obscuration of the right hemidiaphragm. No pneumothorax seen. IMPRESSION: Stable exam. ACT 112: Negative or not required by law. Electronically signed by: Herman Brush M.D. 10/03/2024 8:19 AM PG Care Time/CCT Total # of Minutes Spent Total Time Spent with Patient: Total time spent is greater than 50% in coordination of care (as documented) at patient's floor/unit and/or counseling patient: Coding Level of Care Code 19814 SUB INP/OBS CARE 2/35MIN Diagnoses Hypokalemia E87.6 Acute exacerbation of chronic obstructive pulmonary disease J44.1 Respiratory failure J96.90 COPD (chronic obstructive pulmonary disease) with emphysema J43.9 Hypertension I10 Acute hyponatremia E87.1 Acute non-ST elevation myocardial infarction (NSTEMI) I21.4 Fall W19.XXXA Head injury S09.90XA
--- NOTE | 2024-10-03 11:18 | Infectious Disease Progress Nt ---
Date of Service October 03, 2024 Assessment & Plan (1) Pneumonia: (2) Acute hypoxemic respiratory failure: (3) NAOMY (acute kidney injury): Plan Problems: #MRSA and Legionella pneumonia #Acute hypoxic respiratory failure s/p intubation 09/30 #NAOMY Micro: 10/02 R main stem BAL Bronchial cx: pending. GS no org Fungal cx: pending AFB smear neg, cx pending Legionella PCR: pending 09/30 RML BAL Bronchial cx: Staph aureus Fungal cx: pending AFB smear neg, cx pending Histo/Blasto PCR: pending Cocci PCR: pending Legionella PCR: pending Flu, RSV PCR: pending 09/29 Sputum cx: moderate normal anne 09/29 MRSA nares: positive 09/29 BCx x2: NGTD 09/29 Urine Legionella Ag: detected Abx: Azithro 09/29 - present Ceftaroline 10/01 - present Pip-tazo 10/01 - 10/02 Ceftriaxone 09/29 - 09/30 Vanc 09/29 - 10/01 64 yo M with COPD, HTN who presented on 09/29 with shortness of breath, admitted with AHRF, Staph aureus pneumonia. On presentation, he was afebrile, HR 165, BP 116/89 (later dropped as low as 88/64), RR 34, requiring BiPAP. Labs showed WBC 10.41, plt 121, Na 124, K 2.3, Cr 1.16, AST 86, Tbili 1.2, lactate 5.4, procal 4.49. CTA chest with no PE, and RUL and RML pneumonia. He was started on vanc, ceftriaxone, azithromycin, solumedrol and admitted to the ICU. He was intubated on 09/30 due to respiratory failure. A bronchoscopy was performed, which showed a moderate amount of brown-red secretions in the R main which was suctioned out. RML BAL cx grew MRSA. Overnight on 10/01, pt went into afib with RVR, required norepi, vasopressin, phenylephrine. Was persistently febrile. WBC increased to 19.28. Ceftriaxone was changed to Zosyn. Vanc was changed to ceftaroline. Kidney function worsening, with Cr up to 3.15 on 10/02. On phenylephrine and vasopressin. Repeat bronchoscopy done 10/02, which showed moderate amount of clear brown secretions in the R main going into the RLL. BAL culture sent. Urine Legionella Ag returned positive. Currently on azithromycin. Recommendations: - Continue azithromycin 500 mg IV q24h for Legionella - Continue ceftaroline for MRSA coverage (avoiding vanc due to worsening NAOMY. Linezolid should be ok with fentanyl, as serotonin syndrome is rare, proceeding with ceftaroline at this time as per primary team) Will continue to follow Admission and Anticipated Discharge Date Admission Date: September 29, 2024 Subjective This patient recommendation is based on a telemedicine consult request which was completed asynchronously through chart review and information provided by the primary physician. The patient was not seen or examined today. The evaluation is consultative in nature and all patient care and treatment decisions can either be accepted or rejected by the patient's primary hospital-based treating physician using their own independent medical judgment for their patient. Time Spent Reviewing Chart: 21 - 30 minutes WBC 13.88 --> 16.78 Cr 3.15 --> 3.71 Urine Legionella Ag positive Results & Data Vital Signs (Past 12 Hours) Vital Signs Temp Pulse Pulse Resp BP Pulse Ox O2 Del Method 10/03/24 10:03 103 H 22 95 10/03/24 10:00 96 H 123/69 10/03/24 09:30 95 H 119/62 10/03/24 09:12 36.4 C L 92 H 21 95 10/03/24 09:07 94 H 133/64 10/03/24 08:59 36.4 C L 104 H 10/03/24 08:00 36.5 C 100 H 22 96 10/03/24 07:09 102 H 22 96 10/03/24 07:09 102 H 22 96 Mechanical Vent 10/03/24 07:00 36.6 C 82 21 96 10/03/24 06:30 36.6 C 93 H 25 H 95 10/03/24 06:00 36.7 C 98 H 23 95 10/03/24 05:33 36.7 C 104 H 27 H 10/03/24 05:00 36.7 C 89 22 98 10/03/24 04:45 36.8 C 86 25 H 97 10/03/24 04:00 36.9 C 101 H 25 H 98 10/03/24 03:47 10/03/24 03:39 36.9 C 104 H 24 97 10/03/24 03:12 37.0 C 105 H 25 H 97 10/03/24 02:41 115 H 26 H 93 10/03/24 02:30 37.0 C 105 H 22 97 10/03/24 02:21 37.0 C 116 H 22 96 10/03/24 01:30 37.1 C 111 H 24 96 10/03/24 01:00 37.1 C 99 H 29 H 95 10/03/24 00:30 37.1 C 113 H 25 H 94 10/03/24 00:09 37.1 C 106 H 25 H 95 10/03/24 00:00 115 H 10/02/24 23:44 10/02/24 23:42 108 H 25 H 99 10/02/24 23:33 37.1 C 115 H 21 96 FiO2 10/03/24 10:03 40 10/03/24 10:00 10/03/24 09:30 10/03/24 09:12 40 10/03/24 09:07 10/03/24 08:59 10/03/24 08:00 40 10/03/24 07:09 40 10/03/24 07:09 40 10/03/24 07:00 40 10/03/24 06:30 10/03/24 06:00 10/03/24 05:33 10/03/24 05:00 10/03/24 04:45 10/03/24 04:00 10/03/24 03:47 40 10/03/24 03:39 10/03/24 03:12 10/03/24 02:41 40 10/03/24 02:30 10/03/24 02:21 10/03/24 01:30 10/03/24 01:00 10/03/24 00:30 10/03/24 00:09 10/03/24 00:00 10/02/24 23:44 40 10/02/24 23:42 50 10/02/24 23:33 Laboratory Results Short CBC 10/03/24 Range/Units 04:10 WBC 16.78 H (4.8-10.8) K/ul Hgb 11.9 L (14.0-18.0) g/dl Hct 33.9 L (42.0-52.0) % Plt Count 217 (130-400) K/uL BMP 10/03/24 04:10 Sodium 131 L Potassium 3.3 L Chloride 99 Carbon Dioxide 19 L BUN 65 H Creatinine 3.71 H D Glucose 167 H Calcium 6.9 L Diagnostic Findings Chest X-Ray 10/03/24 07:54 XR chest 1V portable CLINICAL HISTORY: f/u COMPARISON STUDY: 10/02/2024 FINDINGS: Endotracheal tube tip is stable between the thoracic inlet and the kimberley. Nasogastric tube tip is off the field of view inferiorly. Bilateral central catheters are stable. There is stable mild cardiomegaly without pulmonary vascular congestion. Stable dense opacity at the right mid and lower lung with obscuration of the right hemidiaphragm. No pneumothorax seen. IMPRESSION: Stable exam. ACT 112: Negative or not required by law. Electronically signed by: Herman Brush M.D. 10/03/2024 8:19 AM Medications Administered Current Inpatient Medications Acetaminophen (Acetaminophen 500 Mg Tab) 500 mg PO Q4H PRN PRN Reason: Fever or headache Stop: 10/29/24 16:58 Last Admin: 09/29/24 17:10 Dose: 500 mg Amiodarone HCl (Amiodarone 200 Mg Tab) 200 mg PO BID [facility] Stop: 10/09/24 21:01 Last Admin: 10/03/24 10:03 Dose: 200 mg Amiodarone HCl (Amiodarone 200 Mg Tab) 200 mg PO DAILY ANA Stop: 11/09/24 08:59 Aspirin (Aspirin 81 Mg Ectab) 81 mg PO QAM ANA Stop: 10/30/24 08:59 Last Admin: 09/30/24 09:56 Dose: Not Given Budesonide (Budesonide 0.25 Mg/2 Ml Vial (Pulmicort)) 0.25 mg NEB BIDR [facility] Stop: 10/30/24 06:59 Last Admin: 10/03/24 07:00 Dose: 0.25 mg Dextrose (Dextrose 50% 50 Ml Syringe) 25 - 50 ml IV UD PRN; Protocol PRN Reason: Hypoglycemia Protocol Stop: 10/31/24 00:18 Enteral Nutritional Formula (Novasource Renal 2.0 Martínez 1000ml Bag) 1,000 ml OG .See Protocol ANA; Protocol Stop: 11/02/24 10:29 Fentanyl Citrate (Fentanyl Bolus From Bag) 50 mcg IV Q60M PRN PRN Reason: Pain or Agitation Stop: 10/14/24 08:15 Last Admin: 10/02/24 05:34 Dose: 50 mcg Folic Acid (Folic Acid 1 Mg Tab) 1 mg PO DAILY [facility] Stop: 11/03/24 08:59 Glucagon (Glucagon For Inj 1 Mg Vial) 1 mg SQ UD PRN; Protocol PRN Reason: Hypoglycemia Protocol Stop: 10/31/24 00:18 Glucose (Glucose 40% Gel 15 Gm Tube) 15 - 30 gm PO UD PRN; Protocol PRN Reason: Hypoglycemia Protocol Stop: 10/31/24 00:18 Glucose (Glucose 10 Tab/Tube) 4 - 8 tab PO UD PRN; Protocol PRN Reason: Hypoglycemia Protocol Stop: 10/31/24 00:18 Pantoprazole Sodium (Protonix) 40 mg in 10 mls @ 5 mls/min IV BID [facility] Stop: 10/30/24 08:59 Last Admin: 10/03/24 08:38 Dose: 5 mls/min Fentanyl Citrate (Fentanyl Citrate) 2,500 mcg in 250 mls @ 2.5 mls/hr IV .Q96H ANA; Protocol Stop: 10/14/24 08:29 Last Titration: 10/03/24 09:00 Dose: 25 mcg/hr, 2.5 mls/hr Heparin Sodium/Dextrose (Heparin 16308 Unit/500 Ml D5w) 25,000 units in 500 mls @ 34 mls/hr IV .[id number] [facility]; Protocol Stop: 10/31/24 01:59 Last Admin: 10/03/24 08:25 Dose: 1,700 units/hr, 34 mls/hr Phenylephrine HCl (Phenylephrine/Nss) 25 mg in 250 mls @ 23.814 mls/hr IV .[id number] [facility]; Protocol Stop: 10/31/24 07:44 Last Titration: 10/03/24 11:01 Dose: 0.1 mcg/kg/min, 7.9 mls/hr Ceftaroline Fosamil 300 mg/ (Sodium Chloride) 260 mls @ 250 mls/hr IV Q12H [facility]; Protocol Stop: 10/07/24 19:59 Last Infusion: 10/03/24 10:01 Dose: Infused Potassium Chloride (K Sergio / Wtr) 20 meq in 100 mls @ 50 mls/hr IV Q2H [facility] Stop: 10/03/24 12:59 Last Admin: 10/03/24 11:02 Dose: 50 mls/hr Azithromycin (Zithromax) 500 mg in 255 mls @ 127.5 mls/hr IV Q24H [facility] Stop: 10/05/24 16:59 Hydrocortisone Sodium (Succinate 50 mg/ Syringe) 1 mls @ 4 mls/min IV Q12 ANA Stop: 10/06/24 09:01 Hydrocortisone Sodium (Succinate 50 mg/ Syringe) 1 mls @ 4 mls/min IV DAILY ANA Stop: 10/09/24 09:01 Insulin Aspart (Insulin Aspart Per Unit Charge) 0 units SC Q4 ANA Stop: 11/02/24 11:59 Insulin Glargine (Lantus Per Unit Charge) 10 units SC ONE ONE Stop: 10/03/24 12:01 Levalbuterol HCl (Levalbuterol 1.25 Mg/3 Ml Neb) 1.25 mg NEB Q8R [facility] Stop: 10/30/24 14:59 Last Admin: 10/03/24 07:00 Dose: 1.25 mg Miscellaneous (Carbohydrates For Hypoglycemia ) 15 - 30 gm PO UD PRN PRN Reason: Hypoglycemia Protocol Stop: 10/31/24 00:18 Miscellaneous Information (Pharmacy Glycemic Mgmt Consult) 1 each N/A UD PRN PRN Reason: Consult Stop: 10/31/24 09:59 Nutritional Formula (Prosource No Carb 30 Ml/Pkt) 30 ml OG TID [facility] Stop: 11/02/24 13:59 Sterile Water (Tube Feeding Water Flush) 30 ml GT Q4H ANA Stop: 10/30/24 10:29 Last Admin: 10/03/24 10:03 Dose: 30 ml Thiamine HCl (Thiamine Hcl 100 Mg Tab) 100 mg PO DAILY [facility] Stop: 11/03/24 08:59
--- NOTE | 2024-10-03 11:32 | Pharmacy Report ---
Pharmacy Glycemic Short Note 2 - Date of Service October 03, 2024 - Glycemic Short BSG Results (Last 24 hours): 10/02/24 10/02/24 10/02/24 11:28 13:06 16:06 Glucose POC Glucose (other) 180 H 162 H 171 H 10/02/24 10/02/24 10/03/24 19:57 22:23 02:45 Glucose POC Glucose (other) 196 H 179 H 170 H 10/03/24 04:10 Glucose 167 H POC Glucose (other) OUTPATIENT ANTIDIABETIC REGIMEN: * None * HbA1c 5.7% 10/02/24 ASSESSMENT: 10/03 * Remains on insulin drip this morning. Drip has been infusing at 1.1 units/hr for > 24 hours now. Renal function is still poor. HD done yesterday and again today with goal of removing 3-4 L per nephro. BSGs pretty well controlled for last 24 hours on insulin drip, only a few were above 180 mg/dL. Ultimate goal is to keep all BSGs less than 180 mg/dL while avoiding any hypoglycemia. * Stressors are improving. Norepi and Vasopressin discontinued. Only on phenylephrine at this time with requirements decreasing. Remains on Teflaro. Azithromycin added for urine legionella detection. Steroids have been weaned to q12h. Amio was transitioned to PO to go through NG tube. Tube feeds will be changed to Novasource renal given electrolyte imbalances and HD. * Utility Sales Representative okay with discontinuing the insulin drip at this time. Will provide a one time basal dose of less than 0.1 units/kg. Reassess basal in the AM. Will add q4h Novolog while on tube feeds for the time being. Basing this on weight/stress of 2 for now until we can see how the patient responds to basal and bolus insulin in current state. Will add coverage for tube feeds. 10/02 * HbA1c resulted today and may be consistent with pre-diabetes - suspect hyperglycemia is stress-induced and will resolve as stressors dissipate * Stressors stable from yesterday but remain significant per below. Initiation of HD planned for later today. Discussed w dietitian (Jak) - may consider adjustment of tubefeed formula to a renal formula, which has higher CHO * Insulin drip rate has decreased and is now running at 1.1 units/hr. HD may affect BSG's, and change in tubefeed formulation may also play a role * Continue insulin drip and titrating per protocol. May continue low dose Lantus, but only if drip rate is greater than 2 units/hr 10/01 * 64 yo M without a known history of diabetes with stress-induced hyperglycemia. Multiple and significant stressors include critical illness, ventilator hoyos pport, high dose hydrocortisone, septic shock requiring multiple vasopressors, D5W infusions including heparin and amiodarone, plus Peptamen VHP tubefeeds running at a constant 30 mL/hr since ~0200 today * Insulin drip appropriately initiated early today. * Discussed on ICU rounds - keep insulin drip for today due to significant stressors. OK to start very low dose Lantus to help with eventual transition off of the insulin drip (anticipated no earlier than tomorrow). No Novolog to cover tubefeeds since these the tubefeeds are running at a continuous/constant rate and therefore need to titrate drip not anticipated to be high PLAN FOR INPATIENT GLYCEMIC CONTROL: * Basal insulin * Lantus 10 units x 1 at noon today * Reassess basal dose tomorrow AM * Bolus insulin * Novolog q4h while on tube feeds - carb coverage added to order for specific rates of Novasource * Goal range: 110 - 140 mg/dL (ultimately want all BSGs between 110 - 180 mg/dL * Correction factor: 1 unit for every 20 mg/dL above goal * Carb ratio: 1 unit for every 7 g/CHO
[2024-10-03] MEDS: NOVASOURCE RENAL 2.0 CAL 1000ML BAG OG SCH (11:33)
[2024-10-03] MEDS: INSULIN ASPART PER UNIT CHARGE SC SCH (11:48)
[2024-10-03] MEDS: LANTUS PER UNIT CHARGE SC ONE (11:49)
[2024-10-03 11:51] LABS: ANTI-Xa, UFH(UnfractionatedHep 0.35 IU/ml (0.3-0.7)
[2024-10-03] MEDS: PROSOURCE NO CARB 30 ML/PKT OG SCH (14:31)
[2024-10-03] MEDS: AZITHROMYCIN 500 MG/255 ML D5W BAG IV SCH (16:11)
[2024-10-03 16:29] LABS: Hematocrit (blood only) 36.9 % (42.0-52.0); Hemoglobin 12.8 g/dl (14.0-18.0)
[2024-10-03] MEDS: ACETAMINOPHEN 1,000 MG/100 ML VIAL IV PRN (19:21)
[2024-10-03] MEDS: HYDROCORTISONE SOD 50 MG in SYRINGE 0 ML IV SCH (21:05)
[2024-10-04 04:37] LABS: Hematocrit (blood only) 34.5 % (42.0-52.0); Hemoglobin 12.4 g/dl (14.0-18.0); Mean Corpuscular Hemoglobin 32.9 pg (25.0-34.0); Mean Corpuscular Volume 91.5 fL (80.0-100.0); Platelet Count 255 K/uL (130-400); RDW Standard Deviation 46.3 fL (36.4-46.3); Red Blood Count 3.77 M/uL (4.70-6.10); White Blood Count 14.69 K/ul (4.8-10.8)
[2024-10-04 04:56] LABS: Anion Gap 13.0 (3-11); Blood Urea Nitrogen 65.0 mg/dl (6-23); Calcium 7.4 mg/dl (8.6-10.3); Carbon Dioxide 20.0 mmol/L (21-32); Chloride 102.0 mmol/L (98-107); Creatinine Clr Calc Pharmacy 29.2 ml/min; Glucose 153.0 mg/dl (70-99(Fasting)); Magnesium 2.5 mg/dl (1.7-2.4); Potassium 3.5 mmol/L (3.5-5.1); Sodium 135.0 mmol/L (136-145)
[2024-10-04 05:08] LABS: ANTI-Xa, UFH(UnfractionatedHep < 0.10 IU/ml (0.3-0.7)
[2024-10-04 05:16] LABS: iSTAT Art Bld Gas Base Excess -5.0 meg/L (-9-1.8)
--- NOTE | 2024-10-04 07:34 | Critical Care Progress Note ---
Date of Service October 04, 2024 Assessment & Plan (1) Pneumonia: (2) Pleural effusion: (3) Acute hypoxemic respiratory failure: (4) Thrombocytopenia: (5) Airway intubation performed without difficulty: (6) History of tobacco abuse: (7) Respiratory failure: (8) COPD (chronic obstructive pulmonary disease) with emphysema: (9) Severe sepsis: (10) Acute non-ST elevation myocardial infarction (NSTEMI): (11) Alcohol withdrawal delirium: Plan Impression: 64-year-old male with severe obstructive lung disease at baseline admitted with multifocal pneumonia and hypoxemic respiratory failure with concomitant lactic acidosis. Lactate is improved with IV fluids. He is currently on antibiotics. He was placed on noninvasive positive pressure ventilation admitted to the ICU. Recommendations: Neurologic: Propofol and fentanyl for ICU sedation Midazolam pushes as needed agitation/restlessness MRI brain 09/30/2024: Chronic right cerebellar infarct, no evidence of intracranial mass, no acute changes -- Acute alcohol withdrawal History of heavy alcohol use Continue with high-dose thiamine and folic acid Cardiovascular: 2D echo 09/30/2024: Moderate LV dysfunction, EF 40%, RV not well-visualized --Septic shock Sources is multifocal pneumonia --> BAL growing Staph aureus Urine Legionella positive Continue with antibiotics Vasopressor support to keep MAP greater than 65 --New onset A-fib RVR with new onset CHF Could be all related to underlying sepsis Amiodarone bolus then drip started on 09/30/2024 -- Elevated troponins Likely type II NC Continue to trend --Hypertension On losartan at home --Prolonged QTc Avoid QT prolonging medication Continue to monitor Respiratory: CTA chest 09/29/2024 personally reviewed: Centrilobular and paraseptal emphysema appreciated bilaterally Dense consolidative process appreciated in the right upper lobe as well as right middle lobe Minimal right-sided pleural effusion No significant mediastinal lymphadenopathy -- VDRF Intubated 09/30/2024 Likely secondary to multifocal pneumonia Follow-up bronc cultures from 09/30/2024 S/p repeat bronc 10/02/2024, thin clear secretions obstructing the right lower lobe which were suctioned out Continue with ventilatory support Keep RASS -1 Daily sedation holidays and SBT's Nasal MRSA negative Continue broad-spectrum antibiotics On steroids for severe pneumonia --Small right-sided pleural effusion Appreciated on POCUS 10/01/2024 -- COPD with emphysema On Trelegy 100 at home Continue with nebulized budesonide and Perforomist GI: -- Occult blood positive with loose stools H&H seems to be stable Continue to monitor -- Mild transaminitis Continue to trend Renal: -- NAOMY --> acute renal failure Dialysis started 10/02/2024 Nephrology has been consulted Endocrine: ICU hypoglycemia protocol ID: --Severe multifocal community-acquired pneumonia Procalcitonin 29.2 MRSA positive QTc 418 Rocephin changed to Zosyn on 09/30/2024 Vancomycin changed to ceftaroline on 10/01/2024 Bronch culture growing Staph aureus Urine Legionella antigen came positive on 10/03/2024 Heme-onc: -- Thrombocytopenia --> resolved Likely secondary to sepsis versus antibiotics Continue to trend --Prophylaxis VTE: Heparin drip GI: Pantoprazole Lines: Left IJ, left radial, peripheral, positive De La Torre, right IJ dialysis catheter 10/02/2024 Diet: Tube feeds Plan: In/out: -500 mL, urine output 276 mL, 3000 mL removed from dialysis yesterday, + 17.5 L since coming to the hospital ABG 7.37/35/70 No significant change in the opacity on the right side on the chest x-ray from today. Given the wheeze as well as rhonchi, I will start the patient on 7% hypertonic saline nebulized Will try to see if he is able to tolerate metoprolol 5 mg IV Q6 for his A-fib RVR. If the blood pressure starts to tach then we will DC p.o. amiodarone and start amiodarone drip instead Continue with ceftaroline in coordination with infectious disease Potassium being replaced Patient's at bedside was updated regarding patient's current condition and prognosis moving forward I have personally spent 37 minutes of critical care time in the direct management of this patient. This is a life/limb threatening event. This includes time spent evaluating patient, direct bedside care, chart review, placing orders, interpretation of diagnostic studies, discussion with consultants, patient, and family members, as well as other required patient management activities. This time is exclusive of all separately billable procedures, and teaching time and separate from and in addition to any other critical care service time. Please note the above document was generated using voice recognition software. It may contain grammatical, syntax or spelling errors. Admission and Anticipated Discharge Date Admission Date: September 29, 2024 Subjective Patient seen and examined at bedside. No acute distress, no adverse events overnight He was off vasopressors Was on 20 of propofol and 50 of fentanyl Has been having loose bowel movements. Afebrile Breathing with the vent Review of Systems 2 Review of Systems: All systems reviewed & are unremarkable except as noted in Subjective Physical Exam 2 Physical Exam: Constitutional: No acute distress HEENT: PERRLA Respiratory system: Decreased air entry bilaterally, positive expiratory wheeze bilaterally, positive rhonchi, positive crackles bilaterally CVS: S1-S2 positive, no murmurs or gallops, irregular Abdomen: Soft, nontender, nondistended, positive bowel sounds x4, obese Extremities: + 1 pulses bilaterally radialis/ dorsalis pedis, no cyanosis, p ositive pitting edema appreciated bilateral lower extremity as well as upper extremity Neuro: Intubated, sedated, RASS -2 Psych: Unable to assess G/U: Positive De La Torre Skin: no rashes, warm and dry Lymphatic: no cervical or axillary lymphadenopathy Results & Data Results & Data Vital Signs (Past 12 Hours) Vital Signs Temp Pulse Pulse Resp Pulse Ox O2 Del Method FiO2 10/04/24 05:57 130 H 23 94 10/04/24 05:51 127 H 26 H 94 10/04/24 05:45 111 H 20 95 10/04/24 05:03 36.5 C 112 H 26 H 96 10/04/24 04:30 36.6 C 120 H 18 96 10/04/24 04:09 36.5 C 107 H 23 92 10/04/24 03:37 40 10/04/24 03:36 36.5 C 115 H 20 97 10/04/24 03:15 36.5 C 114 H 20 97 10/04/24 02:51 36.4 C L 115 H 23 97 10/04/24 02:34 115 H 24 97 40 10/04/24 02:00 36.5 C 124 H 19 96 10/04/24 01:33 36.5 C 115 H 20 96 10/04/24 01:00 36.4 C L 108 H 20 96 10/04/24 00:30 36.5 C 110 H 20 96 10/04/24 00:06 36.5 C 105 H 20 96 10/04/24 00:00 113 H 10/03/24 23:42 36.6 C 108 H 20 96 10/03/24 23:30 36.6 C 115 H 20 97 10/03/24 23:29 40 10/03/24 23:21 36.6 C 120 H 20 96 10/03/24 23:12 36.6 C 94 H 27 H 97 10/03/24 22:57 36.6 C 109 H 22 97 10/03/24 22:39 105 H 26 H 97 40 10/03/24 22:39 105 H 26 H 97 Mechanical Vent 40 10/03/24 22:33 36.6 C 113 H 22 97 10/03/24 22:12 36.6 C 106 H 19 96 10/03/24 21:30 36.7 C 102 H 22 96 10/03/24 21:00 36.7 C 110 H 21 96 10/03/24 20:48 36.7 C 114 H 22 96 10/03/24 20:18 36.8 C 120 H 23 94 10/03/24 20:00 40 10/03/24 19:38 129 H 24 95 40 10/03/24 19:38 133 H 24 97 Mechanical Vent 40 Laboratory Results 10/04/24 04:16 10/04/24 04:16 Coding Level of Care Code 52018 CRITICAL CARE 1ST 30-74M Diagnoses Pneumonia J18.9 Pleural effusion J90 Acute hypoxemic respiratory failure J96.01 Thrombocytopenia D69.6 Airway intubation performed without difficulty Z78.9 History of tobacco abuse Z87.891 Respiratory failure J96.90 COPD (chronic obstructive pulmonary disease) with emphysema J43.9 Severe sepsis A41.9; R65.20 Acute non-ST elevation myocardial infarction (NSTEMI) I21.4 Alcohol withdrawal delirium F10.931
--- NOTE | 2024-10-04 07:44 | XRay Report ---
EXAM: XR chest 1V portable CLINICAL HISTORY: f/u TECHNIQUE: An X-ray image of the chest is obtained in AP projection. COMPARISON: prior CR study dated 10/02/2024 FINDINGS: Lines and Tubes: ET tube, tip approximately 5.3 cm superior to the kimberley, which is an adequate position. Left-sided central venous line is present, with its distal tip projecting over the superior vena cava. NG tube, reaching left infradiaphragmatic, tip not seen New right sided central venous catheter, tip at SVC Pulmonary Parenchyma: Unchanged right-sided mild to moderate pleural effusion and obscurrtion of right lower lung zone. Clear left costophrenic angle Heart and Mediastinum: Mild cardiomegaly and a prominent aortic arch noted. Bony Thorax: Bony thorax appears intact without fractures or deformities. Soft Tissues: Soft tissues overlying the chest wall are unremarkable. IMPRESSION: 1. ET tube, tip approximately 5.3 cm superior to the kimberley, which is an adequate position. 2. Left-sided central venous line is present, with its distal tip projecting over the superior vena cava. 3. NG tube, reaching left infradiaphragmatic, tip not seen 4. New right sided central venous catheter, tip at SVC 5. Unchanged right-sided mild to moderate pleural effusion and obscurrtion of right lower lung zone. Electronically signed by Carl Meraz 10-04-2024 07:43 AM
[2024-10-04] MEDS: THIAMINE HCL 100 MG TAB PO SCH (08:11)
[2024-10-04] MEDS: FOLIC ACID 1 MG TAB PO SCH (08:11)
[2024-10-04] MEDS: POTASSIUM CHLORIDE / WTR 20 MEQ/100 ML PLCT IV SCH (08:12)
[2024-10-04] MEDS: METOPROLOL TARTRATE 1 MG/ML VIAL IV STA ×2 (09:10→15:33)
--- NOTE | 2024-10-04 10:18 | Infectious Disease Progress Nt ---
Date of Service October 04, 2024 Assessment & Plan (1) Pneumonia: (2) Acute hypoxemic respiratory failure: (3) NAOMY (acute kidney injury): Plan Problems: #MRSA and Legionella pneumonia #Acute hypoxic respiratory failure s/p intubation 09/30 #NAOMY Micro: 10/02 R main stem BAL Bronchial cx: NGTD. GS no org Fungal cx: pending AFB smear neg, cx pending Legionella PCR: pending 09/30 RML BAL Bronchial cx: MRSA Fungal cx: pending AFB smear neg, cx pending Histo/Blasto PCR: neg Cocci PCR: neg Legionella PCR: positive Flu, RSV PCR: pending 09/29 Sputum cx: moderate normal anne 09/29 MRSA nares: positive 09/29 BCx x2: NGTD 09/29 Urine Legionella Ag: detected Abx: Azithro 09/29 - present Ceftaroline 10/01 - present Pip-tazo 10/01 - 10/02 Ceftriaxone 09/29 - 09/30 Vanc 09/29 - 10/01 64 yo M with COPD, HTN who presented on 09/29 with shortness of breath, admitted with AHRF, MRSA and Legionella pneumonia. On presentation, he was afebrile, HR 165, BP 116/89 (later dropped as low as 88/64), RR 34, requiring BiPAP. Labs showed WBC 10.41, plt 121, Na 124, K 2.3, Cr 1.16, AST 86, Tbili 1.2, lactate 5.4, procal 4.49. CTA chest with no PE, and RUL and RML pneumonia. He was started on vanc, ceftriaxone, azithromycin, solumedrol and admitted to the ICU. He was intubated on 09/30 due to respiratory failure. A bronchoscopy was performed, which showed a moderate amount of brown-red secretions in the R main which was suctioned out. RML BAL cx grew MRSA, and BAL Legionella PCR positive. Urine Legionella Ag returned positive. Overnight on 10/01, pt went into afib with RVR, required norepi, vasopressin, phenylephrine. Was persistently febrile. WBC increased to 19.28. Ceftriaxone was changed to Zosyn. Vanc was changed to ceftaroline. Kidney function worsening, with Cr up to 3.15 on 10/02. On phenylephrine and vasopressin. Repeat bronchoscopy done 10/02, which showed moderate amount of clear brown secretions in the R main going into the RLL. BAL culture sent. Recommendations: - Continue azithromycin 500 mg IV q24h for Legionella pneumonia - Can switch from ceftaroline to linezolid 600 mg BID when able (avoiding vanc due to NAOMY. Linezolid should be ok with fentanyl, as serotonin syndrome is rare, but proceeding with ceftaroline at this time as per primary team) Will continue to follow Please note that ID does not round or write notes over the weekend. If questions or concerns arise, please contact the Infectious Disease Call Center and ask to speak with the covering ID physician. Admission and Anticipated Discharge Date Admission Date: September 29, 2024 Subjective This patient recommendation is based on a telemedicine consult request which was completed asynchronously through chart review and information provided by the primary physician. The patient was not seen or examined today. The evaluation is consultative in nature and all patient care and treatment decisions can either be accepted or rejected by the patient's primary hospital-based treating physician using their own independent medical judgment for their patient. Time Spent Reviewing Chart: 11 - 20 minutes Afebrile WBC decreased to 14.69 Cr 3.59 Results & Data Vital Signs (Past 12 Hours) Vital Signs Temp Pulse Pulse Resp BP Pulse Ox O2 Del Method 10/04/24 10:01 18 10/04/24 10:00 134 H 104/66 10/04/24 09:41 10/04/24 09:41 118 H 10/04/24 09:30 112 H 107/67 10/04/24 09:18 116 H 107/65 10/04/24 09:16 36.4 C L 153 H 10/04/24 09:10 137 H 134/75 10/04/24 09:03 141 H 23 92 10/04/24 08:12 134 H 22 92 10/04/24 07:12 133 H 22 10/04/24 07:08 140 H 26 H 93 10/04/24 05:57 130 H 23 94 10/04/24 05:51 127 H 26 H 94 10/04/24 05:45 111 H 20 95 10/04/24 05:03 36.5 C 112 H 26 H 96 10/04/24 04:30 36.6 C 120 H 18 96 10/04/24 04:09 36.5 C 107 H 23 92 10/04/24 03:37 10/04/24 03:36 36.5 C 115 H 20 97 10/04/24 03:15 36.5 C 114 H 20 97 10/04/24 02:51 36.4 C L 115 H 23 97 10/04/24 02:34 115 H 24 97 10/04/24 02:00 36.5 C 124 H 19 96 10/04/24 01:33 36.5 C 115 H 20 96 10/04/24 01:00 36.4 C L 108 H 20 96 10/04/24 00:30 36.5 C 110 H 20 96 10/04/24 00:06 36.5 C 105 H 20 96 10/04/24 00:00 113 H 10/03/24 23:42 36.6 C 108 H 20 96 10/03/24 23:30 36.6 C 115 H 20 97 10/03/24 23:29 10/03/24 23:21 36.6 C 120 H 20 96 10/03/24 23:12 36.6 C 94 H 27 H 97 10/03/24 22:57 36.6 C 109 H 22 97 10/03/24 22:39 105 H 26 H 97 10/03/24 22:39 105 H 26 H 97 Mechanical Vent 10/03/24 22:33 36.6 C 113 H 22 97 FiO2 10/04/24 10:01 40 10/04/24 10:00 10/04/24 09:41 40 10/04/24 09:41 10/04/24 09:30 10/04/24 09:18 10/04/24 09:16 10/04/24 09:10 10/04/24 09:03 10/04/24 08:12 10/04/24 07:12 10/04/24 07:08 40 10/04/24 05:57 10/04/24 05:51 10/04/24 05:45 10/04/24 05:03 10/04/24 04:30 10/04/24 04:09 10/04/24 03:37 40 10/04/24 03:36 10/04/24 03:15 10/04/24 02:51 10/04/24 02:34 40 10/04/24 02:00 10/04/24 01:33 10/04/24 01:00 10/04/24 00:30 10/04/24 00:06 10/04/24 00:00 10/03/24 23:42 10/03/24 23:30 10/03/24 23:29 40 10/03/24 23:21 10/03/24 23:12 10/03/24 22:57 10/03/24 22:39 40 10/03/24 22:39 40 10/03/24 22:33 Laboratory Results Short CBC 10/03/24 10/04/24 Range/Units 16:12 04:16 WBC 14.69 H (4.8-10.8) K/ul Hgb 12.8 L 12.4 L (14.0-18.0) g/dl Hct 36.9 L 34.5 L (42.0-52.0) % Plt Count 255 (130-400) K/uL BMP 10/04/24 04:16 Sodium 135 L Potassium 3.5 Chloride 102 Carbon Dioxide 20 L BUN 65 H Creatinine 3.59 H Glucose 153 H Calcium 7.4 L Liver Function 10/04/24 Range/Units 04:16 Albumin 2.2 L (3.4-5.0) gm/dl Medications Administered Current Inpatient Medications Acetaminophen (Acetaminophen 500 Mg Tab) 500 mg PO Q4H PRN PRN Reason: Fever or headache Stop: 10/29/24 16:58 Last Admin: 09/29/24 17:10 Dose: 500 mg Amiodarone HCl (Amiodarone 200 Mg Tab) 200 mg PO BID [facility] Stop: 10/09/24 21:01 Last Admin: 10/04/24 08:11 Dose: 200 mg Amiodarone HCl (Amiodarone 200 Mg Tab) 200 mg PO DAILY [facility] Stop: 11/09/24 08:59 Aspirin (Aspirin 81 Mg Ectab) 81 mg PO QAM [facility] Stop: 10/30/24 08:59 Last Admin: 09/30/24 09:56 Dose: Not Given Budesonide (Budesonide 0.25 Mg/2 Ml Vial (Pulmicort)) 0.25 mg NEB BIDR [facility] Stop: 10/30/24 06:59 Last Admin: 10/04/24 07:08 Dose: 0.25 mg Dextrose (Dextrose 50% 50 Ml Syringe) 25 - 50 ml IV UD PRN; Protocol PRN Reason: Hypoglycemia Protocol Stop: 10/31/24 00:18 Enteral Nutritional Formula (Novasource Renal 2.0 Martínez 1000ml Bag) 1,000 ml OG .See Protocol ANA; Protocol Stop: 11/02/24 10:29 Last Admin: 10/03/24 11:33 Dose: 1,000 ml Fentanyl Citrate (Fentanyl Bolus From Bag) 50 mcg IV Q60M PRN PRN Reason: Pain or Agitation Stop: 10/14/24 08:15 Last Admin: 10/02/24 05:34 Dose: 50 mcg Folic Acid (Folic Acid 1 Mg Tab) 1 mg PO DAILY [facility] Stop: 11/03/24 08:59 Last Admin: 10/04/24 08:11 Dose: 1 mg Glucagon (Glucagon For Inj 1 Mg Vial) 1 mg SQ UD PRN; Protocol PRN Reason: Hypoglycemia Protocol Stop: 10/31/24 00:18 Glucose (Glucose 40% Gel 15 Gm Tube) 15 - 30 gm PO UD PRN; Protocol PRN Reason: Hypoglycemia Protocol Stop: 10/31/24 00:18 Glucose (Glucose 10 Tab/Tube) 4 - 8 tab PO UD PRN; Protocol PRN Reason: Hypoglycemia Protocol Stop: 10/31/24 00:18 Pantoprazole Sodium (Protonix) 40 mg in 10 mls @ 5 mls/min IV BID [facility] Stop: 10/30/24 08:59 Last Admin: 10/04/24 08:11 Dose: 5 mls/min Fentanyl Citrate (Fentanyl Citrate) 2,500 mcg in 250 mls @ 5 mls/hr IV .Q50H [facility]; Protocol Stop: 10/14/24 08:29 Last Titration: 10/04/24 06:58 Dose: 50 mcg/hr, 5 mls/hr Propofol (Diprivan) 1,000 mg in 100 mls @ 15.684 mls/hr IV .Q6H23M [facility]; Protocol Stop: 10/06/24 08:29 Last Admin: 10/04/24 06:57 Dose: 20 mcg/kg/min, 15.7 mls/hr Heparin Sodium/Dextrose (Heparin 86356 Unit/500 Ml D5w) 25,000 units in 500 mls @ 34 mls/hr IV .[id number] [facility]; Protocol Stop: 10/31/24 01:59 Last Admin: 10/04/24 09:11 Dose: 1,700 units/hr, 34 mls/hr Phenylephrine HCl (Phenylephrine/Nss) 25 mg in 250 mls @ 0 mls/hr IV .Q0M [facility]; Protocol Stop: 10/31/24 07:44 Last Titration: 10/04/24 06:58 Dose: 0 mcg/kg/min, 0 mls/hr Ceftaroline Fosamil 300 mg/ (Sodium Chloride) 260 mls @ 250 mls/hr IV Q12H [facility]; Protocol Stop: 10/07/24 19:59 Last Admin: 10/04/24 08:12 Dose: 250 mls/hr Azithromycin (Zithromax) 500 mg in 255 mls @ 127.5 mls/hr IV Q24H [facility] Stop: 10/05/24 16:59 Last Infusion: 10/03/24 20:33 Dose: Infused Hydrocortisone Sodium (Succinate 50 mg/ Syringe) 1 mls @ 4 mls/min IV Q12 [facility] Stop: 10/06/24 09:01 Last Admin: 10/04/24 08:11 Dose: 4 mls/min Hydrocortisone Sodium (Succinate 50 mg/ Syringe) 1 mls @ 4 mls/min IV DAILY [facility] Stop: 10/09/24 09:01 Acetaminophen (Ofirmev) 1,000 mg in 100 mls @ 400 mls/hr IV Q8H PRN PRN Reason: Fever or headache Stop: 10/06/24 18:48 Last Infusion: 10/03/24 20:32 Dose: Infused Potassium Chloride (K Sergio / Wtr) 20 meq in 100 mls @ 50 mls/hr IV Q2H [facility] Stop: 10/04/24 11:44 Last Admin: 10/04/24 10:24 Dose: 50 mls/hr Insulin Aspart (Insulin Aspart Per Unit Charge) 0 units SC Q4 [facility] Stop: 11/02/24 11:59 Last Admin: 10/04/24 08:10 Dose: 4 units Levalbuterol HCl (Levalbuterol 1.25 Mg/3 Ml Neb) 1.25 mg NEB Q8R [facility] Stop: 10/30/24 14:59 Last Admin: 10/04/24 07:08 Dose: 1.25 mg Metoprolol Tartrate (Metoprolol Tartrate 1 Mg/Ml Vial) 5 mg IV Q6 ANA Stop: 11/03/24 11:59 Miscellaneous (Carbohydrates For Hypoglycemia ) 15 - 30 gm PO UD PRN PRN Reason: Hypoglycemia Protocol Stop: 10/31/24 00:18 Miscellaneous Information (Pharmacy Glycemic Mgmt Consult) 1 each N/A UD PRN PRN Reason: Consult Stop: 10/31/24 09:59 Nutritional Formula (Prosource No Carb 30 Ml/Pkt) 30 ml OG TID ANA Stop: 11/02/24 13:59 Last Admin: 10/04/24 08:11 Dose: 30 ml Sodium Chloride (Sodium Chlor 7% 4 Ml Neb) 4 ml NEB BIDR ANA Stop: 11/03/24 18:59 Sterile Water (Tube Feeding Water Flush) 30 ml GT Q4H ANA Stop: 10/30/24 10:29 Last Admin: 10/04/24 09:12 Dose: 30 ml Thiamine HCl (Thiamine Hcl 100 Mg Tab) 100 mg PO DAILY [facility]NA Stop: 11/03/24 08:59 Last Admin: 10/04/24 08:11 Dose: 100 mg
[2024-10-04] MEDS: LANTUS PER UNIT CHARGE SC SCH (11:55)
[2024-10-04] MEDS: METOPROLOL TARTRATE 1 MG/ML VIAL IV SCH (11:55)
--- NOTE | 2024-10-04 11:58 | Nephrology Progress Note ---
Date of Service October 04, 2024 Assessment & Plan (1) NAOMY (acute kidney injury): Plan: Oliguric. NAOMY consistent with ischemic ATN. Start HD on October 02. Orders for HD today have been entered into the EHR and reviewed with the shake sawyer. Large obligatory intake. Hemodynamically requiring vasopressor support and with atrial fibrillation with labile HR. Medications are currently appropriately dosed for kidney function. Document strict I/O's. Repeat metabolic profile tomorrow AM. (2) Severe sepsis with septic shock: Plan: Clinically improving. Remains on azithromycin and ceftaroline. ID following. BAL --> MRSA. Legionella +. (3) Acute hypoxemic respiratory failure: Plan: Remains ventilator dependent. UF as tolerated. Admission and Anticipated Discharge Date Admission Date: September 29, 2024 Marine Ayala was seen and evaluated during hemodialysis this AM. He was evaluated with his at the bedside. I discussed the plan of care with Dr. Cavanaugh. Jamie tolerated HD well yesterday with net UF 3 L. No complications with treatment. He remains sedated and ventilator dependent. Review of Systems Review of Systems: Unobtainable due to endotracheal tube and Unobtainable due to reduced consciousness Physical Exam Constitutional: + morbidly obese, + mechanically ventila ivet and + edematous; no acute distress Eyes: + anicteric sclerae Neck: normal visual inspection and + thick neck Respiratory: Auscultation: + diminished lung sounds Cardiovascular: Rate/Rhythm: + tachycardic and + irregularly irregular Extremities: + edema Gastrointestinal (Abdomen): Inspection/Auscultation: + abdomen distended Percussion/Palpation: abdomen not rigid Musculoskeletal: Extremities: no cyanosis Results & Data Vital Signs (Past 12 Hours) Vital Signs Temp Pulse Pulse Resp BP Pulse Ox O2 Del Method 10/04/24 11:30 137 H 115/65 10/04/24 11:00 145 H 109/62 10/04/24 10:30 145 H 115/69 10/04/24 10:24 130 H 21 91 10/04/24 10:06 Mechanical Vent 10/04/24 10:01 18 10/04/24 10:00 134 H 104/66 10/04/24 09:41 10/04/24 09:41 118 H 10/04/24 09:31 113 H 125/72 10/04/24 09:30 112 H 107/67 10/04/24 09:18 116 H 107/65 10/04/24 09:16 36.4 C L 153 H 10/04/24 09:10 137 H 134/75 10/04/24 09:03 141 H 23 92 10/04/24 08:12 134 H 22 92 10/04/24 07:12 133 H 22 10/04/24 07:08 140 H 26 H 93 10/04/24 05:57 130 H 23 94 10/04/24 05:51 127 H 26 H 94 10/04/24 05:45 111 H 20 95 10/04/24 05:03 36.5 C 112 H 26 H 96 10/04/24 04:30 36.6 C 120 H 18 96 10/04/24 04:09 36.5 C 107 H 23 92 10/04/24 03:37 10/04/24 03:36 36.5 C 115 H 20 97 10/04/24 03:15 36.5 C 114 H 20 97 10/04/24 02:51 36.4 C L 115 H 23 97 10/04/24 02:34 115 H 24 97 10/04/24 02:00 36.5 C 124 H 19 96 10/04/24 01:33 36.5 C 115 H 20 96 10/04/24 01:00 36.4 C L 108 H 20 96 10/04/24 00:30 36.5 C 110 H 20 96 10/04/24 00:06 36.5 C 105 H 20 96 10/04/24 00:00 113 H FiO2 10/04/24 11:30 10/04/24 11:00 10/04/24 10:30 10/04/24 10:24 40 10/04/24 10:06 40 10/04/24 10:01 40 10/04/24 10:00 10/04/24 09:41 40 10/04/24 09:41 10/04/24 09:31 10/04/24 09:30 10/04/24 09:18 10/04/24 09:16 10/04/24 09:10 10/04/24 09:03 10/04/24 08:12 10/04/24 07:12 10/04/24 07:08 40 10/04/24 05:57 10/04/24 05:51 10/04/24 05:45 10/04/24 05:03 10/04/24 04:30 10/04/24 04:09 10/04/24 03:37 40 10/04/24 03:36 10/04/24 03:15 10/04/24 02:51 10/04/24 02:34 40 10/04/24 02:00 10/04/24 01:33 10/04/24 01:00 10/04/24 00:30 10/04/24 00:06 10/04/24 00:00 PG Care Time/CCT Total # of Minutes Spent Total Time Spent with Patient: Total time spent is greater than 50% in coordination of care (as documented) at patient's floor/unit and/or counseling patient: Coding Level of Care Code 35426 SUB INP/OBS CARE 3/50MIN Diagnoses NAOMY (acute kidney injury) N17.9 Severe sepsis with septic shock A41.9; R65.21 Acute hypoxemic respiratory failure J96.01
--- NOTE | 2024-10-04 12:59 | Pharmacy Report ---
Pharmacy Glycemic Short Note 2 - Date of Service October 04, 2024 - Glycemic Short BSG Results (Last 24 hours): 10/03/24 10/03/24 10/04/24 16:15 20:59 00:30 Glucose POC Glucose 157 H 169 H POC Glucose (other) 174 H 10/04/24 10/04/24 10/04/24 04:16 07:21 11:47 Glucose 153 H POC Glucose 139 H 129 H POC Glucose (other) OUTPATIENT ANTIDIABETIC REGIMEN: * None * HbA1c 5.7% 10/02/24 ASSESSMENT: 10/04: * BSGs within goal the last 24h: [id number]/dL. Received 10 units of SQ basal yesterday and 20 units of bolus insulin. * Remains intubated/sedated. Continues on IV hydrocortisone taper and IV antibiotics. Novasource renal at goal. * Continue Lantus 10 units SQ daily and Novolog moderate stress scale q4 for now. 10/03 * Remains on insulin drip this morning. Drip has been infusing at 1.1 units/hr for > 24 hours now. Renal function is still poor. HD done yesterday and again today with goal of removing 3-4 L per nephro. BSGs pretty well controlled for last 24 hours on insulin drip, only a few were above 180 mg/dL. Ultimate goal is to keep all BSGs less than 180 mg/dL while avoiding any hypoglycemia. * Stressors are improving. Norepi and Vasopressin discontinued. Only on phenylephrine at this time with requirements decreasing. Remains on Teflaro. Azithromycin added for urine legionella detection. Steroids have been weaned to q12h. Amio was transitioned to PO to go through NG tube. Tube feeds will be changed to Novasource renal given electrolyte imbalances and HD. * Bacon Stringer okay with discontinuing the insulin drip at this time. Will provide a one time basal dose of less than 0.1 units/kg. Reassess basal in the AM. Will add q4h Novolog while on tube feeds for the time being. Basing this on weight/stress of 2 for now until we can see how the patient responds to basal and bolus insulin in current state. Will add coverage for tube feeds. 10/02 * HbA1c resulted today and may be consistent with pre-diabetes - suspect hyperglycemia is stress-induced and will resolve as stressors dissipate * Stressors stable from yesterday but remain significant per below. Initiation of HD planned for later today. Discussed w dietitian (Jak) - may consider adjustment of tubefeed formula to a renal formula, which has higher CHO * Insulin drip rate has decreased and is now running at 1.1 units/hr. HD may affect BSG's, and change in tubefeed formulation may also play a role * Continue insulin drip and titrating per protocol. May continue low dose Lantus, but only if drip rate is greater than 2 units/hr 10/01 * 64 yo M without a known history of diabetes with stress-induced hyperglycemia. Multiple and significant stressors include critical illness, ventilator support, high dose hydrocortisone, septic shock requiring multiple vasopressors, D5W infusions including heparin and amiodarone, plus Peptamen VHP tubefeeds running at a constant 30 mL/hr since ~0200 today * Insulin drip appropriately initiated early today. * Discussed on ICU rounds - keep insulin drip for today due to significant stressors. OK to start very low dose Lantus to help with eventual transition off of the insulin drip (anticipated no earlier than tomorrow). No Novolog to cover tubefeeds since these the tubefeeds are running at a continuous/constant rate and therefore need to titrate drip not anticipated to be high PLAN FOR INPATIENT GLYCEMIC CONTROL: * Basal insulin * Lantus 10 units SQ daily * Bolus insulin * Novolog q4h while on tube feeds - carb coverage added to order for specific rates of Novasource * Goal range: 110 - 140 mg/dL (ultimately want all BSGs between 110 - 180 mg/dL * Correction factor: 1 unit for every 20 mg/dL above goal * Carb ratio: 1 unit for every 7 g/CHO
--- NOTE | 2024-10-04 13:04 | Hospitalist Progress Note ---
Date of Service October 04, 2024 Assessment & Plan (1) Hypokalemia: (2) Acute exacerbation of chronic obstructive pulmonary disease: (3) Respiratory failure: (4) COPD (chronic obstructive pulmonary disease) with emphysema: (5) Hypertension: (6) Acute hyponatremia: (7) Acute non-ST elevation myocardial infarction (NSTEMI): (8) Fall: (9) Head injury: Plan This is a 64-year-old morbidly obese male with a history of COPD, hypertension who presents with severe respiratory distress, now on BiPAP. Chest x-ray showed pneumonia. He was given DuoNebs, steroids, ceftriaxone in the emergency room. Labs significant for lactic acidosis of 5, anion gap metabolic acidosis, hyponatremia, hypokalemia, elevated troponin, elevated procalcitonin. His blood pressure dropped while in the ER. He is being admitted to the ICU with acute hypoxic respiratory failure, pneumonia with severe sepsis #Acute hypoxic respiratory failure Due to a combination of COPD exacerbation and pneumonia. Possibly MRSA and Legionella pneumonia Bronchial lavage growing MRSA Urine Legionella positive Currently on ceftaroline and azithromycin Consult infectious disease. Currently intubated May proceed towards tracheostomy next week #Community-acquired pneumonia/septic shock Chest x-ray shows right upper and middle lobe consolidation. Possible MRSA pneumonia Bronchial lavage growing staph Urine Legionella antigen positive Currently on ceftaroline and azithromycin. He was hypotensive, tachycardic, tachypneic, with lactic acidosis of 5. Met criteria for severe sepsis Blood cultures negative Monitor in ICU Today on no pressors Weaning down Solu-Cortef #Acute kidney injury ATN due to septic shock Creatinine still rising Still oliguric/anuric Tolerated dialysis yesterday. Now on dialysis again today. Nephrology involved Monitor #Atrial fibrillation Started on amiodarone drip and heparin drip New onset Complicated by CHF Monitor thrombocytopenia Hemoccult positive few days ago. Monitor. #Anion gap metabolic acidosis/lactic acidosis Most likely due to sepsis Had improved but needed another bicarb push #Hyponatremia/hypokalemia Hyponatremia improved Renal function worsened #Elevated troponin Patient does not complain of any chest pain EKG reviewed. No ST-T wave changes. Troponins went up higher overnight. Echocardiogram reviewed. Technically difficult study. Most likely demand ischemia due to hypoxia and tachycardia. #Subacute/chronic right cerebellar infarct CT head was done because the patient had a fall with head trauma last night. It showed a subacute/chronic right cerebellar infarct MRI showed a chronic cerebellar infarct Patient has a history of intracranial hemorrhage most likely subdural hematoma when he was life flighted from [facility] to [facility]. No records yet #Hypertension Blood pressure is rather on the low side. On vasopressors Continue to hold losartan #Alcohol withdrawal Per nurse, patient was starting to get delirious and was hallucinating Currently on propofol and fentanyl Thiamine and folic acid added #COPD Budesonide twice daily added by twisting machine operator VTE prophylaxis: Lovenox Full code Admission and Anticipated Discharge Date Admission Date: September 29, 2024 Subjective Per nurse, patient is not on any pressors today. He is on dialysis. Review of Systems Review of Systems: Unobtainable due to endotracheal tube Physical Exam Physical Exam: General: Morbidly obese patient. Currently intubated and sedated. Currently on dialysis in the ICU Heart: S1, S2/tachycardic, irregular rhythm., no murmur rubs or gallops Lungs: Equal air entry bilaterally. Abdomen: Soft/nontender/nondistended. No hepatosplenomegaly Extremities: No clubbing/cyanosis. No edema Behavior: Unable to assess due to intubation and sedation Results & Data Results & Data Vital Signs (Past 12 Hours) Vital Signs Temp Pulse Pulse Resp BP Pulse Ox O2 Del Method 10/04/24 12:30 133 H 120/68 10/04/24 12:00 36.4 C L 138 H 107/64 10/04/24 11:55 147 H 115/64 10/04/24 11:30 137 H 115/65 10/04/24 11:00 145 H 109/62 10/04/24 10:30 145 H 115/69 10/04/24 10:24 130 H 21 91 10/04/24 10:06 Mechanical Vent 10/04/24 10:01 18 10/04/24 10:00 134 H 104/66 10/04/24 09:41 10/04/24 09:41 118 H 10/04/24 09:31 113 H 125/72 10/04/24 09:30 112 H 107/67 10/04/24 09:18 116 H 107/65 10/04/24 09:16 36.4 C L 153 H 10/04/24 09:10 137 H 134/75 10/04/24 09:03 141 H 23 92 10/04/24 08:12 134 H 22 92 10/04/24 07:12 133 H 22 10/04/24 07:08 140 H 26 H 93 10/04/24 05:57 130 H 23 94 10/04/24 05:51 127 H 26 H 94 10/04/24 05:45 111 H 20 95 10/04/24 05:03 36.5 C 112 H 26 H 96 10/04/24 04:30 36.6 C 120 H 18 96 10/04/24 04:09 36.5 C 107 H 23 92 10/04/24 03:37 10/04/24 03:36 36.5 C 115 H 20 97 10/04/24 03:15 36.5 C 114 H 20 97 10/04/24 02:51 36.4 C L 115 H 23 97 10/04/24 02:34 115 H 24 97 10/04/24 02:00 36.5 C 124 H 19 96 10/04/24 01:33 36.5 C 115 H 20 96 10/04/24 01:00 36.4 C L 108 H 20 96 FiO2 10/04/24 12:30 10/04/24 12:00 10/04/24 11:55 10/04/24 11:30 10/04/24 11:00 10/04/24 10:30 10/04/24 10:24 40 10/04/24 10:06 40 10/04/24 10:01 40 10/04/24 10:00 10/04/24 09:41 40 10/04/24 09:41 10/04/24 09:31 10/04/24 09:30 10/04/24 09:18 10/04/24 09:16 10/04/24 09:10 10/04/24 09:03 10/04/24 08:12 10/04/24 07:12 10/04/24 07:08 40 10/04/24 05:57 10/04/24 05:51 10/04/24 05:45 10/04/24 05:03 10/04/24 04:30 10/04/24 04:09 10/04/24 03:37 40 10/04/24 03:36 10/04/24 03:15 10/04/24 02:51 10/04/24 02:34 40 10/04/24 02:00 10/04/24 01:33 10/04/24 01:00 Laboratory Results Abnormal lab results 10/03/24 10/03/24 10/03/24 Range/Units 15:19 16:12 16:15 WBC (4.8-10.8) K/ul RBC (4.70-6.10) M/uL Hgb 12.8 L (14.0-18.0) g/dl POC Hgb (14.0-18.0) g/dl Hct 36.9 L (42.0-52.0) % POC Hct (42-52) % Heparin Anti-Xa, Unfract (0.3-0.7) IU/ml POC pO2 (80-95) mmHg POC Total CO2 (24-31) mmol/L POC Sodium (135-144) mmol/L Sodium (136-145) mmol/L Carbon Dioxide (21-32) mmol/L Anion Gap (3-11) BUN (6-23) mg/dl Creatinine (0.6-1.4) mg/dl Glucose (70-99(Fasting)) mg/dl POC Glucose 157 H (70-99) mg/dl POC Glucose (other) (70-99) mg/dl Calcium (8.6-10.3) mg/dl Magnesium (1.7-2.4) mg/dl Albumin (3.4-5.0) gm/dl Stool Occult Bld Scrn Positive A (Negative) 10/03/24 10/04/24 10/04/24 Range/Units 20:59 00:30 04:16 WBC 14.69 H (4.8-10.8) K/ul RBC 3.77 L (4.70-6.10) M/uL Hgb 12.4 L (14.0-18.0) g/dl POC Hgb (14.0-18.0) g/dl Hct 34.5 L (42.0-52.0) % POC Hct (42-52) % Heparin Anti-Xa, Unfract < 0.10 L (0.3-0.7) IU/ml POC pO2 (80-95) mmHg POC Total CO2 (24-31) mmol/L POC Sodium (135-144) mmol/L Sodium 135 L (136-145) mmol/L Carbon Dioxide 20 L (21-32) mmol/L Anion Gap 13 H (3-11) BUN 65 H (6-23) mg/dl Creatinine 3.59 H (0.6-1.4) mg/dl Glucose 153 H (70-99(Fasting)) mg/dl POC Glucose 169 H (70-99) mg/dl POC Glucose (other) 174 H (70-99) mg/dl Calcium 7.4 L (8.6-10.3) mg/dl Magnesium 2.5 H (1.7-2.4) mg/dl Albumin 2.2 L (3.4-5.0) gm/dl Stool Occult Bld Scrn (Negative) 10/04/24 10/04/24 10/04/24 Range/Units 05:04 07:21 11:47 WBC (4.8-10.8) K/ul RBC (4.70-6.10) M/uL Hgb (14.0-18.0) g/dl POC Hgb 11.9 L (14.0-18.0) g/dl Hct (42.0-52.0) % POC Hct 35 L (42-52) % Heparin Anti-Xa, Unfract (0.3-0.7) IU/ml POC pO2 70 L (80-95) mmHg POC Total CO2 21 L (24-31) mmol/L POC Sodium 134 L (135-144) mmol/L Sodium (136-145) mmol/L Carbon Dioxide (21-32) mmol/L Anion Gap (3-11) BUN (6-23) mg/dl Creatinine (0.6-1.4) mg/dl Glucose (70-99(Fasting)) mg/dl POC Glucose 139 H 129 H (70-99) mg/dl POC Glucose (other) (70-99) mg/dl Calcium (8.6-10.3) mg/dl Magnesium (1.7-2.4) mg/dl Albumin (3.4-5.0) gm/dl Stool Occult Bld Scrn (Negative) Diagnostic Findings Chest X-Ray 10/04/24 07:00 EXAM: XR chest 1V portable CLINICAL HISTORY: f/u TECHNIQUE: An X-ray image of the chest is obtained in AP projection. COMPARISON: prior CR study dated 10/02/2024 FINDINGS: Lines and Tubes: ET tube, tip approximately 5.3 cm superior to the kimberley, which is an adequate position. Left-sided central venous line is present, with its distal tip projecting over the superior vena cava. NG tube, reaching left infradiaphragmatic, tip not seen New right sided central venous catheter, tip at SVC Pulmonary Parenchyma: Unchanged right-sided mild to moderate pleural effusion and obscurrtion of right lower lung zone. Clear left costophrenic angle Heart and Mediastinum: Mild cardiomegaly and a prominent aortic arch noted. Bony Thorax: Bony thorax appears intact without fractures or deformities. Soft Tissues: Soft tissues overlying the chest wall are unremarkable. IMPRESSION: 1. ET tube, tip approximately 5.3 cm superior to the kimberley, which is an adequate position. 2. Left-sided central venous line is present, with its distal tip projecting over the superior vena cava. 3. NG tube, reaching left infradiaphragmatic, tip not seen 4. New right sided central venous catheter, tip at SVC 5. Unchanged right-sided mild to moderate pleural effusion and obscurrtion of right lower lung zone. Electronically signed by Carl Meraz 10-04-2024 07:43 AM PG Care Time/CCT Total # of Minutes Spent Total Time Spent with Patient: Total time spent is greater than 50% in coordination of care (as documented) at patient's floor/unit and/or counseling patient: Coding Level of Care Code 08995 SUB INP/OBS CARE 2/35MIN Diagnoses Hypokalemia E87.6 Acute exacerbation of chronic obstructive pulmonary disease J44.1 Respiratory failure J96.90 COPD (chronic obstructive pulmonary disease) with emphysema J43.9 Hypertension I10 Acute hyponatremia E87.1 Acute non-ST elevation myocardial infarction (NSTEMI) I21.4 Fall W19.XXXA Head injury S09.90XA
--- NOTE | 2024-10-04 15:01 | Electrocardiogram Report ---
Test Reason : Blood Pressure : */* mmHG Vent. Rate : 116 BPM Atrial Rate : * BPM P-R Int : * ms QRS Dur : 92 ms QT Int : 328 ms P-R-T Axes : * 60 93 degrees QTcB Int : 455 ms Poor data quality, interpretation may be adversely affected Atrial fibrillation with rapid ventricular response Low voltage QRS Abnormal ECG When compared with ECG of 30-Sep-2024 10:03, Atrial fibrillation has replaced Sinus rhythm Confirmed by Wiliam Brewer ([id number]) on 10/04/2024 3:01:19 PM Referred By: REFERRED SELF Confirmed By: Wiliam Brewer
[2024-10-04] MEDS ORDERED: AMIODARONE IV BOLUS & DRIP IV STA (15:54)
[2024-10-04] MEDS ORDERED: STAT IV Infusion **Titration per Protocol STA (15:54)
[2024-10-04] MEDS ORDERED: AMIODARONE / D5W 150 MG/100 ML BAG IV STA (15:54)
[2024-10-04] MEDS ORDERED: 0.2 MICRON FILTER SET 1 EACH IV STA (15:54)
[2024-10-04 16:00] LABS: ANTI-Xa, UFH(UnfractionatedHep 0.27 IU/ml (0.3-0.7)
[2024-10-04] MEDS ORDERED: AMIODARONE / D5W 360 MG/200 ML BAG IV ONE (16:04)
[2024-10-04] MEDS: AMIODARONE / D5W 360 MG/200 ML BAG IV STA (16:26)
[2024-10-04] MEDS: SODIUM CHLOR 7% 4 ML NEB NEB SCH (19:03)
[2024-10-04] MEDS ORDERED: 0.2 MICRON FILTER SET 1 EACH IV ONE (19:18)
[2024-10-04] MEDS: AMIODARONE / D5W 150 MG/100 ML BAG IV STA (19:36)
[2024-10-04] MEDS: AMIODARONE / D5W 360 MG/200 ML BAG IV SCH (22:07)
--- NOTE | 2024-10-04 22:09 | Electrocardiogram Report ---
Test Reason : Blood Pressure : */* mmHG Vent. Rate : 126 BPM Atrial Rate : * BPM P-R Int : * ms QRS Dur : 96 ms QT Int : 286 ms P-R-T Axes : * 44 194 degrees QTcB Int : 414 ms Atrial fibrillation with rapid ventricular response Low voltage QRS Nonspecific T wave abnormality Abnormal ECG When compared with ECG of 03-Oct-2024 10:29, (unconfirmed) No significant change was found Confirmed by Wiliam Brewer ([id number] on 10/04/2024 10:09:37 PM Referred By: REFERRED SELF Confirmed By: Wiliam Brewer
[2024-10-04 23:56] LABS: ANTI-Xa, UFH(UnfractionatedHep 0.32 IU/ml (0.3-0.7)
[2024-10-05 05:01] LABS: Hematocrit (blood only) 37.6 % (42.0-52.0); Hemoglobin 12.9 g/dl (14.0-18.0); Mean Corpuscular Hemoglobin 32.0 pg (25.0-34.0); Mean Corpuscular Volume 93.3 fL (80.0-100.0); Platelet Count 259 K/uL (130-400); RDW Standard Deviation 50.2 fL (36.4-46.3); Red Blood Count 4.03 M/uL (4.70-6.10); White Blood Count 17.63 K/ul (4.8-10.8)
[2024-10-05 05:14] LABS: Anion Gap 12.0 (3-11); Blood Urea Nitrogen 66.0 mg/dl (6-23); Calcium 7.6 mg/dl (8.6-10.3); Carbon Dioxide 22.0 mmol/L (21-32); Chloride 101.0 mmol/L (98-107); Creatinine Clr Calc Pharmacy 29.9 ml/min; Glucose 162.0 mg/dl (70-99(Fasting)); Magnesium 2.3 mg/dl (1.7-2.4); Potassium 4.0 mmol/L (3.5-5.1); Sodium 135.0 mmol/L (136-145)
[2024-10-05 05:23] LABS: ANTI-Xa, UFH(UnfractionatedHep 0.31 IU/ml (0.3-0.7)
--- NOTE | 2024-10-05 07:47 | Critical Care Progress Note ---
Date of Service October 05, 2024 Assessment & Plan (1) Pneumonia: (2) Pleural effusion: (3) Acute hypoxemic respiratory failure: (4) Thrombocytopenia: (5) Airway intubation performed without difficulty: (6) History of tobacco abuse: (7) Respiratory failure: (8) COPD (chronic obstructive pulmonary disease) with emphysema: (9) Severe sepsis: (10) Acute non-ST elevation myocardial infarction (NSTEMI): (11) Alcohol withdrawal delirium: Plan Impression: 64-year-old male with severe obstructive lung disease at baseline admitted with multifocal pneumonia and hypoxemic respiratory failure with concomitant lactic acidosis. Lactate is improved with IV fluids. He is currently on antibiotics. He was placed on noninvasive positive pressure ventilation admitted to the ICU. Recommendations: Neurologic: Propofol and fentanyl for ICU sedation Midazolam pushes as needed agitation/restlessness MRI brain 09/30/2024: Chronic right cerebellar infarct, no evidence of intracranial mass, no acute changes -- Acute alcohol withdrawal History of heavy alcohol use Continue with high-dose thiamine and folic acid Cardiovascular: 2D echo 09/30/2024: Moderate LV dysfunction, EF 40%, RV not well-visualized --Septic shock Sources is multifocal pneumonia --> BAL growing Staph aureus Urine Legionella positive Continue with antibiotics Vasopressor support to keep MAP greater than 65 --New onset A-fib RVR with new onset CHF Could be all related to underlying sepsis Amiodarone bolus then drip started on 09/30/2024 Amiodarone drip was transition to p.o. but patient went into A-fib RVR again on 10/04/2024, another bolus of amiodarone was given and drip was restarted -- Elevated troponins Likely type II MS Continue to trend --Hypertension On losartan at home --Prolonged QTc Avoid QT prolonging medication Continue to monitor Respiratory: CTA chest 09/29/2024 personally reviewed: Centrilobular and paraseptal emphysema appreciated bilaterally Dense consolidative process appreciated in the right upper lobe as well as right middle lobe Minimal right-sided pleural effusion No significant mediastinal lymphadenopathy -- VDRF Intubated 09/30/2024 Likely secondary to multifocal pneumonia Bronc culture from 09/30/2024 growing MRSA S/p repeat bronc 10/02/2024, thin clear secretions obstructing the right lower lobe which were suctioned out Continue with ventilatory support Keep RASS -1 Daily sedation holidays and SBT's Nasal MRSA positive Continue broad-spectrum antibiotics On steroids for severe pneumonia --Small right-sided pleural effusion Appreciated on POCUS 10/01/2024 -- COPD with emphysema On Trelegy 100 at home Continue with nebulized budesonide and Perforomist GI: -- Occult blood positive with loose stools H&H seems to be stable Continue to monitor -- Mild transaminitis Continue to trend Renal: -- NAOMY --> acute renal failure Dialysis started 10/02/2024 Nephrology has been consulted Endocrine: ICU hypoglycemia protocol ID: --Severe multifocal community-acquired pneumonia Procalcitonin 29.2 MRSA positive QTc 418 Rocephin changed to Zosyn on 09/30/2024 Vancomycin changed to ceftaroline on 10/01/2024 Bronch culture growing Staph aureus Urine Legionella antigen came positive on 10/03/2024 Heme-onc: -- Thrombocytopenia --> resolved Likely secondary to sepsis versus antibiotics Continue to trend --Prophylaxis VTE: Heparin drip GI: Pantoprazole Lines: Left IJ, left radial, peripheral, positive De La Torre, right IJ dialysis catheter 10/02/2024 Diet: Tube feeds Plan: In/out: - 2.4 L, urine output 112 mL, 5500 mL removed from dialysis yesterday, + 15 L since coming to the hospital Total dialysis fluid removal: 7000 mL Will repeat blood cultures today given the need for vasopressors overnight along with little bump in WBC count Continue with azithromycin given the Legionella antigen was positive Continue with ceftaroline for MRSA pneumonia Continue with amiodarone drip Case discussed with nephrology Patient's kidney function is not improving, he will probably need permacath placement I have personally spent 35 minutes of critical care time in the direct management of this patient. This is a life/limb threatening event. This includes time spent evaluating patient, direct bedside care, chart review, placing orders, interpretation of diagnostic studies, discussion with consultants, patient, and family members, as well as other required patient management activities. This time is exclusive of all separately billable procedures, and teaching time and separate from and in addition to any other critical care service time. Please note the above document was generated using voice recognition software. It may contain grammatical, syntax or spelling errors. Admission and Anticipated Discharge Date Admission Date: September 29, 2024 Subjective Patient seen and examined at bedside. No acute distress Patient was on 1.6 of phenylephrine at the time of examination MAP is in the mid to high 80s. I went down on the phenylephrine to 1.5 Breathing over the went RASS -2 Was on 25 propofol and 50 of fentanyl Was on amiodarone drip Still having loose bowel movements Review of Systems 2 Review of Systems: All systems reviewed & are unremarkable except as noted in Subjective Physical Exam 2 Physical Exam: Constitutional: No acute distress HEENT: PERRLA Respiratory system: Decreased air entry bilaterally, no wheeze, minimal rhonchi, positive crackles bilaterally CVS: S1-S2 positive, no murmurs or gallops, irregular Abdomen: Soft, nontender, nondistended, positive bowel sounds x4, obese Extremities: + 1 pulses bilaterally radialis/ dorsalis pedis, no cyanosis, p ositive pitting edema appreciated bilateral lower extremity as well as upper extremity Neuro: Intubated, sedated, RASS -2 Psych: Unable to assess G/U: Positive De La Torre Skin: no rashes, warm and dry Lymphatic: no cervical or axillary lymphadenopathy Results & Data Results & Data Vital Signs (Past 12 Hours) Vital Signs Temp Pulse Resp BP Pulse Ox FiO2 10/05/24 07:06 106 H 24 92 40 10/05/24 06:21 118 H 19 92 10/05/24 06:15 110 H 20 92 10/05/24 06:12 116 H 20 92 10/05/24 06:00 117 H 20 92 10/05/24 05:57 115 H 21 92 10/05/24 05:32 114 H 96/55 L 10/05/24 05:21 114 H 21 92 10/05/24 05:15 108 H 18 92 10/05/24 05:12 118 H 20 91 10/05/24 05:09 21 10/05/24 05:00 120 H 21 90 10/05/24 05:00 40 10/05/24 04:45 111 H 19 91 10/05/24 04:42 111 H 19 91 10/05/24 04:36 99 H 19 91 10/05/24 04:21 106 H 20 91 10/05/24 04:18 113 H 20 91 10/05/24 04:00 106 H 19 92 10/05/24 03:57 104 H 20 92 40 10/05/24 03:33 99 H 18 92 10/05/24 03:00 99 H 18 92 10/05/24 02:57 108 H 17 91 10/05/24 02:06 105 H 17 92 10/05/24 01:33 111 H 17 92 10/05/24 01:00 100 H 18 91 10/05/24 01:00 40 10/05/24 00:51 108 H 17 91 10/05/24 00:48 101 H 18 92 10/05/24 00:09 99 H 18 91 10/05/24 00:02 36.5 C 10/05/24 00:00 99 H 18 91 10/04/24 23:58 104 H 98/56 L 10/04/24 23:30 104 H 17 91 10/04/24 23:12 107 H 18 92 10/04/24 23:12 103 H 10/04/24 23:07 93 H 19 91 40 10/04/24 22:30 97 H 18 91 10/04/24 22:00 115 H 18 91 10/04/24 21:51 98 H 18 91 10/04/24 21:03 109 H 18 92 10/04/24 20:57 114 H 18 92 10/04/24 20:00 36.6 C 10/04/24 20:00 122 H 19 91 10/04/24 20:00 40 Laboratory Results 10/05/24 04:43 10/05/24 04:43 Coding Level of Care Code 55453 CRITICAL CARE 1ST 30-74M Diagnoses Pneumonia J18.9 Pleural effusion J90 Acute hypoxemic respiratory failure J96.01 Thrombocytopenia D69.6 Airway intubation performed without difficulty Z78.9 History of tobacco abuse Z87.891 Respiratory failure J96.90 COPD (chronic obstructive pulmonary disease) with emphysema J43.9 Severe sepsis A41.9; R65.20 Acute non-ST elevation myocardial infarction (NSTEMI) I21.4 Alcohol withdrawal delirium F10.931
--- NOTE | 2024-10-05 09:12 | Nephrology Progress Note ---
Date of Service October 05, 2024 Assessment & Plan (1) NAOMY (acute kidney injury): Plan: * NAOMY - c/w ischemic ATN. 1st HD 10/02 * Dialyzed yesterday for 5.5 L UF * Remains oliguric. I&O show net +24 L since admission. Patient receives 3L IVF daily. POC discussed w/ critical care team this morning. Will provide HD today and attempt 2.5-3.0 L UF to maintain euvolemia. Will guide UF according to BP and HR response. Orders have been placed in EMR and HD RN notified * Monitor I&O's * Repeat BMP in am (2) Severe sepsis with septic shock: Plan: * Clinically improving. Remains on azithromycin and ceftaroline. ID following. BAL --> MRSA. Legionella +. (3) Acute hypoxemic respiratory failure: Plan: * Remains ventilator dependent. UF as tolerated. Admission and Anticipated Discharge Date Admission Date: September 29, 2024 Subjective Mr. Moeyr was seen and evaluated in the ICU this morning. He remains sedated, mechanically ventilated and pressor dependent. Mr. Moyer was last dialyzed yesterday for 5.5 L UF. Review of Systems Review of Systems: Unobtainable due to endotracheal tube Physical Exam Constitutional: + ill appearing Eyes: + anicteric sclerae ENMT: external ear and nose normal, oropharynx normal Neck: trachea midline, no thyromegaly Respiratory: Coarse breath sounds bilaterally Cardiovascular: Rate/Rhythm: + tachycardic Extremities: + edema (2-3+ dependent edema of the arms and legs) Gastrointestinal (Abdomen): normal bowel sounds, soft, nontender, no hepatosplenomegaly Musculoskeletal: Extremities: no cyanosis and no clubbing Skin: no rashes, warm and dry Results & Data Vital Signs (Past 12 Hours) Vital Signs Temp Pulse Resp BP Pulse Ox O2 Del Method FiO2 10/05/24 08:15 112 H 18 94 Mechanical Vent 40 10/05/24 08:01 110 H 18 92/65 L 94 Mechanical Vent 40 10/05/24 07:45 105 H 18 93 Mechanical Vent 40 10/05/24 07:30 106 H 18 93 Mechanical Vent 40 10/05/24 07:30 40 10/05/24 07:15 116 H 20 92 Mechanical Vent 40 10/05/24 07:12 105 H 23 107/79 92 Mechanical Vent 40 10/05/24 07:06 106 H 24 92 40 10/05/24 06:21 118 H 19 92 10/05/24 06:15 110 H 20 92 10/05/24 06:12 116 H 20 92 10/05/24 06:00 117 H 20 92 10/05/24 05:57 115 H 21 92 10/05/24 05:32 114 H 96/55 L 10/05/24 05:21 114 H 21 92 10/05/24 05:15 108 H 18 92 10/05/24 05:12 118 H 20 91 10/05/24 05:09 21 91 10/05/24 05:00 120 H 21 90 10/05/24 05:00 40 10/05/24 04:45 111 H 19 91 10/05/24 04:42 111 H 19 91 10/05/24 04:36 99 H 19 91 10/05/24 04:21 106 H 20 91 10/05/24 04:18 113 H 20 91 10/05/24 04:00 106 H 19 92 10/05/24 03:57 104 H 20 92 40 10/05/24 03:33 99 H 18 92 10/05/24 03:00 99 H 18 92 10/05/24 02:57 108 H 17 91 10/05/24 02:06 105 H 17 92 10/05/24 01:33 111 H 17 92 10/05/24 01:00 100 H 18 91 10/05/24 01:00 40 10/05/24 00:51 108 H 17 91 10/05/24 00:48 101 H 18 92 10/05/24 00:09 99 H 18 91 10/05/24 00:02 36.5 C 10/05/24 00:00 99 H 18 91 10/04/24 23:58 104 H 98/56 L 10/04/24 23:30 104 H 17 91 10/04/24 23:12 107 H 18 92 10/04/24 23:12 103 H 10/04/24 23:07 93 H 19 91 40 10/04/24 22:30 97 H 18 91 10/04/24 22:00 115 H 18 91 10/04/24 21:51 98 H 18 91 Laboratory Results Laboratory Results - last 24 hr 09/30/24 10/02/24 10/04/24 08:45 Unknown 11:47 WBC RBC Hgb Hct MCV MCH MCHC RDW Std Deviation RDW Coeff of Al[place] Plt Count MPV Absolute Nucleated RBC Nucleated RBC % (auto) Heparin Anti-Xa, Unfract Sodium Potassium Chloride Carbon Dioxide Anion Gap BUN Creatinine Est Cr Clr Drug Dosing eGFR BUN/Creatinine Ratio Glucose POC Glucose 129 H POC Glucose (other) Calcium Phosphorus Magnesium Coccidioid immitis DNA See Scanned Report Histo/Blasto PCR Result See Scanned Report Influenza and RSV (PCR) Pending Legionella sp (PCR) See Scanned Report Pending 10/04/24 10/04/24 10/04/24 15:13 16:15 19:58 WBC RBC Hgb Hct MCV MCH MCHC RDW Std Deviation RDW Coeff of Alton Plt Count MPV Absolute Nucleated RBC Nucleated RBC % (auto) Heparin Anti-Xa, Unfract 0.27 L Sodium Potassium Chloride Carbon Dioxide Anion Gap BUN Creatinine Est Cr Clr Drug Dosing eGFR BUN/Creatinine Ratio Glucose POC Glucose 129 H POC Glucose (other) 249 H Calcium Phosphorus Magnesium Coccidioid immitis DNA Histo/Blasto PCR Result Influenza and RSV (PCR) Legionella sp (PCR) 10/04/24 10/04/24 10/04/24 20:03 22:53 22:55 WBC RBC Hgb Hct MCV MCH MCHC RDW Std Deviation RDW Coeff of Alton Plt Count MPV Absolute Nucleated RBC Nucleated RBC % (auto) Heparin Anti-Xa, Unfract 0.32 Sodium Potassium Chloride Carbon Dioxide Anion Gap BUN Creatinine Est Cr Clr Drug Dosing eGFR BUN/Creatinine Ratio Glucose POC Glucose 202 H 158 H POC Glucose (other) Calcium Phosphorus Magnesium Coccidioid immitis DNA Histo/Blasto PCR Result Influenza and RSV (PCR) Legionella sp (PCR) 10/05/24 04:43 WBC 17.63 H RBC 4.03 L Hgb 12.9 L Hct 37.6 L MCV 93.3 MCH 32.0 MCHC 34.3 RDW Std Deviation 50.2 H RDW Coeff of Alton 14.6 H Plt Count 259 MPV 11.9 Absolute Nucleated RBC 0.07 Nucleated RBC % (auto) 0.4 Heparin Anti-Xa, Unfract 0.31 Sodium 135 L Potassium 4.0 Chloride 101 Carbon Dioxide 22 Anion Gap 12 H BUN 66 H Creatinine 3.51 H Est Cr Clr Drug Dosing 29.9 eGFR 18.74 BUN/Creatinine Ratio 18.8 Glucose 162 H POC Glucose POC Glucose (other) Calcium 7.6 L Phosphorus 6.5 H Magnesium 2.3 Coccidioid immitis DNA Histo/Blasto PCR Result Influenza and RSV (PCR) Legionella sp (PCR) PG Care Time/CCT Total # of Minutes Spent Total Time Spent with Patient: Total time spent is greater than 50% in coordination of care (as documented) at patient's floor/unit and/or counseling patient: Coding Level of Care Code 20187 SUB INP/OBS CARE 3/50MIN Diagnoses NAOMY (acute kidney injury) N17.9 Severe sepsis with septic shock A41.9; R65.21 Acute hypoxemic respiratory failure J96.01
--- NOTE | 2024-10-05 09:35 | XRay Report ---
XR chest 1V portable CLINICAL HISTORY: f/u COMPARISON STUDY: 10/04/2024 FINDINGS: Endotracheal tube tip is stable between the thoracic inlet and the kimberley. Nasogastric tube tip is off the field of view inferiorly. Stable bilateral central catheters. Stable cardiomegaly wit h mild pulmonary vascular congestion. Stable dense opacity at the right mid and lower lung with obscu ration of the right hemidiaphragm. No pneumothorax. IMPRESSION: Stable exam. ACT 112: Negative or not required by law. Electronically signed by: Herman Brush M.D. 10/05/2024 9:34 AM
[2024-10-05] MEDS ORDERED: SODIUM CHLORIDE 0.9% 1,000 ML IV PRN (09:41)
--- NOTE | 2024-10-05 12:33 | Hospitalist Progress Note ---
Date of Service October 05, 2024 Assessment & Plan (1) Hypokalemia: (2) Acute exacerbation of chronic obstructive pulmonary disease: (3) Respiratory failure: (4) COPD (chronic obstructive pulmonary disease) with emphysema: (5) Hypertension: (6) Acute hyponatremia: (7) Acute non-ST elevation myocardial infarction (NSTEMI): (8) Fall: (9) Head injury: Plan This is a 64-year-old morbidly obese male with a history of COPD, hypertension who presents with severe respiratory distress, now on BiPAP. Chest x-ray showed pneumonia. He was given DuoNebs, steroids, ceftriaxone in the emergency room. Labs significant for lactic acidosis of 5, anion gap metabolic acidosis, hyponatremia, hypokalemia, elevated troponin, elevated procalcitonin. His blood pressure dropped while in the ER. He is being admitted to the ICU with acute hypoxic respiratory failure, pneumonia with severe sepsis #Acute hypoxic respiratory failure Due to MRSA and Legionella pneumonia Bronchial lavage growing MRSA Urine Legionella positive Currently on ceftaroline and azithromycin Consulted infectious disease. Currently intubated May proceed towards tracheostomy next week #Community-acquired pneumonia/septic shock Chest x-ray shows right upper and middle lobe consolidation. Possible MRSA pneumonia Bronchial lavage growing staph Urine Legionella antigen positive Currently on ceftaroline and azithromycin. He was hypotensive, tachycardic, tachypneic, with lactic acidosis of 5. Met criteria for severe sepsis Blood cultures negative Currently on no pressors Weaning down Solu-Cortef #Acute kidney injury ATN due to septic shock Creatinine still rising Still oliguric/anuric Tolerated dialysis yesterday. Now on dialysis again today. Nephrology involved Monitor #Atrial fibrillation on amiodarone drip and heparin drip New onset Complicated by CHF Monitor thrombocytopenia Hemoccult positive few days ago. Monitor. #Anion gap metabolic acidosis/lactic acidosis Most likely due to sepsis Had improved but needed another bicarb push #Elevated troponin Patient did not complain of any chest pain EKG reviewed. No ST-T wave changes. Troponins went up higher overnight. Echocardiogram reviewed. Technically difficult study. Most likely demand ischemia due to hypoxia and tachycardia. #Subacute/chronic right cerebellar infarct CT head was done because the patient had a fall with head trauma last night. It showed a subacute/chronic right cerebellar infarct MRI showed a chronic cerebellar infarct Patient has a history of intracranial hemorrhage most likely subdural hematoma when he was life flighted from [facility] to [facility] presby. No records yet #Hypertension Blood pressure is rather on the low side. On vasopressors Continue to hold losartan #Alcohol withdrawal Per nurse, patient was starting to get delirious and was hallucinating Currently on propofol and fentanyl Thiamine and folic acid added #COPD Budesonide twice daily added by intervention nurse VTE prophylaxis: Lovenox Full code Admission and Anticipated Discharge Date Admission Date: September 29, 2024 Subjective Patient remains intubated. Still oliguric/anuric. Currently on hemodialysis again. White count is slightly bumped today. Review of Systems Review of Systems: Unobtainable due to endotracheal tube Physical Exam Physical Exam: General: Morbidly obese patient. Currently intubated and sedated. Currently on dialysis in the ICU Heart: S1, S2/tachycardic, irregular rhythm., no murmur rubs or gallops Lungs: Equal air entry bilaterally. Abdomen: Soft/nontender/nondistended. No hepatosplenomegaly Extremities: No clubbing/cyanosis. No edema Behavior: Unable to assess due to intubation and sedation Results & Data Results & Data Vital Signs (Past 12 Hours) Vital Signs Temp Pulse Pulse Resp BP Pulse Ox O2 Del Method 10/05/24 12:00 131 H 116/65 10/05/24 11:45 128 H 27 H 91 Mechanical Vent 10/05/24 11:33 126 H 24 90 Mechanical Vent 10/05/24 11:30 135 H 117/66 10/05/24 11:00 145 H 24 91 Mechanical Vent 10/05/24 11:00 10/05/24 11:00 119 H 121/65 10/05/24 10:50 129 H 23 91 10/05/24 10:30 113 H 25 H 92 Mechanical Vent 10/05/24 10:30 125 H 137/71 10/05/24 10:00 114 H 21 93 Mechanical Vent 10/05/24 10:00 119 H 142/68 H 10/05/24 09:45 36.5 C 99 H 10/05/24 09:45 114 H 22 93 Mechanical Vent 10/05/24 09:30 106 H 23 93 Mechanical Vent 10/05/24 09:00 123 H 21 94 Mechanical Vent 10/05/24 08:45 103 H 20 94 Mechanical Vent 10/05/24 08:30 118 H 20 94 Mechanical Vent 10/05/24 08:15 112 H 18 94 Mechanical Vent 10/05/24 08:01 110 H 18 92/65 L 94 Mechanical Vent 10/05/24 07:45 105 H 18 93 Mechanical Vent 10/05/24 07:30 106 H 18 93 Mechanical Vent 10/05/24 07:30 10/05/24 07:15 36.5 C 10/05/24 07:15 Mechanical Vent 10/05/24 07:15 116 H 20 92 Mechanical Vent 10/05/24 07:12 105 H 23 107/79 92 Mechanical Vent 10/05/24 07:06 106 H 24 92 10/05/24 06:21 118 H 19 92 10/05/24 06:15 110 H 20 92 10/05/24 06:12 116 H 20 92 10/05/24 06:00 117 H 20 92 10/05/24 05:57 115 H 21 92 10/05/24 05:32 114 H 96/55 L 10/05/24 05:21 114 H 21 92 10/05/24 05:15 108 H 18 92 10/05/24 05:12 118 H 20 91 10/05/24 05:09 21 91 10/05/24 05:00 120 H 21 90 10/05/24 05:00 10/05/24 04:45 111 H 19 91 10/05/24 04:42 111 H 19 91 10/05/24 04:36 99 H 19 91 10/05/24 04:21 106 H 20 91 10/05/24 04:18 113 H 20 91 10/05/24 04:00 106 H 19 92 10/05/24 03:57 104 H 20 92 10/05/24 03:33 99 H 18 92 10/05/24 03:00 99 H 18 92 10/05/24 02:57 108 H 17 91 10/05/24 02:06 105 H 17 92 10/05/24 01:33 111 H 17 92 10/05/24 01:00 100 H 18 91 10/05/24 01:00 10/05/24 00:51 108 H 17 91 10/05/24 00:48 101 H 18 92 FiO2 10/05/24 12:00 10/05/24 11:45 40 10/05/24 11:33 40 10/05/24 11:30 10/05/24 11:00 40 10/05/24 11:00 40 10/05/24 11:00 10/05/24 10:50 40 10/05/24 10:30 40 10/05/24 10:30 10/05/24 10:00 40 10/05/24 10:00 10/05/24 09:45 10/05/24 09:45 40 10/05/24 09:30 40 10/05/24 09:00 40 10/05/24 08:45 40 10/05/24 08:30 40 10/05/24 08:15 40 10/05/24 08:01 40 10/05/24 07:45 40 10/05/24 07:30 40 10/05/24 07:30 40 10/05/24 07:15 10/05/24 07:15 40 10/05/24 07:15 40 10/05/24 07:12 40 10/05/24 07:06 40 10/05/24 06:21 10/05/24 06:15 10/05/24 06:12 10/05/24 06:00 10/05/24 05:57 10/05/24 05:32 10/05/24 05:21 10/05/24 05:15 10/05/24 05:12 10/05/24 05:09 10/05/24 05:00 10/05/24 05:00 40 10/05/24 04:45 10/05/24 04:42 10/05/24 04:36 10/05/24 04:21 10/05/24 04:18 10/05/24 04:00 10/05/24 03:57 40 10/05/24 03:33 10/05/24 03:00 10/05/24 02:57 10/05/24 02:06 10/05/24 01:33 10/05/24 01:00 10/05/24 01:00 40 10/05/24 00:51 10/05/24 00:48 Laboratory Results Abnormal lab results 10/04/24 10/04/24 10/04/24 Range/Units 15:13 16:15 19:58 WBC (4.8-10.8) K/ul RBC (4.70-6.10) M/uL Hgb (14.0-18.0) g/dl Hct (42.0-52.0) % RDW Std Deviation (36.4-46.3) fL RDW Coeff of Alton (11.5-14.5) % Heparin Anti-Xa, Unfract 0.27 L (0.3-0.7) IU/ml Sodium (136-145) mmol/L Anion Gap (3-11) BUN (6-23) mg/dl Creatinine (0.6-1.4) mg/dl Glucose (70-99(Fasting)) mg/dl POC Glucose 129 H (70-99) mg/dl POC Glucose (other) 249 H (70-99) mg/dl Calcium (8.6-10.3) mg/dl Phosphorus (2.5-4.9) mg/dl 10/04/24 10/04/24 10/05/24 Range/Units 20:03 22:55 04:43 WBC 17.63 H (4.8-10.8) K/ul RBC 4.03 L (4.70-6.10) M/uL Hgb 12.9 L (14.0-18.0) g/dl Hct 37.6 L (42.0-52.0) % RDW Std Deviation 50.2 H (36.4-46.3) fL RDW Coeff of Alton 14.6 H (11.5-14.5) % Heparin Anti-Xa, Unfract (0.3-0.7) IU/ml Sodium 135 L (136-145) mmol/L Anion Gap 12 H (3-11) BUN 66 H (6-23) mg/dl Creatinine 3.51 H (0.6-1.4) mg/dl Glucose 162 H (70-99(Fasting)) mg/dl POC Glucose 202 H 158 H (70-99) mg/dl POC Glucose (other) (70-99) mg/dl Calcium 7.6 L (8.6-10.3) mg/dl Phosphorus 6.5 H (2.5-4.9) mg/dl 10/05/24 Range/Units 08:38 WBC (4.8-10.8) K/ul RBC (4.70-6.10) M/uL Hgb (14.0-18.0) g/dl Hct (42.0-52.0) % RDW Std Deviation (36.4-46.3) fL RDW Coeff of Alton (11.5-14.5) % Heparin Anti-Xa, Unfract (0.3-0.7) IU/ml Sodium (136-145) mmol/L Anion Gap (3-11) BUN (6-23) mg/dl Creatinine (0.6-1.4) mg/dl Glucose (70-99(Fasting)) mg/dl POC Glucose (70-99) mg/dl POC Glucose (other) 153 H (70-99) mg/dl Calcium (8.6-10.3) mg/dl Phosphorus (2.5-4.9) mg/dl Diagnostic Findings Chest X-Ray 10/05/24 08:31 XR chest 1V portable CLINICAL HISTORY: f/u COMPARISON STUDY: 10/04/2024 FINDINGS: Endotracheal tube tip is stable between the thoracic inlet and the kimberley. Nasogastric tube tip is off the field of view inferiorly. Stable bilateral central catheters. Stable cardiomegaly with mild pulmonary vascular congestion. Stable dense opacity at the right mid and lower lung with obscuration of the right hemidiaphragm. No pneumothorax. IMPRESSION: Stable exam. ACT 112: Negative or not required by law. Electronically signed by: Herman Brush M.D. 10/05/2024 9:34 AM PG Care Time/CCT Total # of Minutes Spent Total Time Spent with Patient: Total time spent is greater than 50% in coordination of care (as documented) at patient's floor/unit and/or counseling patient: Coding Level of Care Code 52100 SUB INP/OBS CARE 2/35MIN Diagnoses Hypokalemia E87.6 Acute exacerbation of chronic obstructive pulmonary disease J44.1 Respiratory failure J96.90 COPD (chronic obstructive pulmonary disease) with emphysema J43.9 Hypertension I10 Acute hyponatremia E87.1 Acute non-ST elevation myocardial infarction (NSTEMI) I21.4 Fall W19.XXXA Head injury S09.90XA
[2024-10-05 15:13] LABS: Cdiff Toxin B Gene (2yr or >) Negative Cdiff Gene (Neg)
[2024-10-05] MEDS: METOPROLOL TARTRATE 1 MG/ML VIAL IV STA (15:54)
[2024-10-06] MEDS: METOPROLOL TARTRATE 1 MG/ML VIAL IV STA (01:03)
[2024-10-06] MEDS: DIGOXIN 250 MCG in SYRINGE 9 ML IV ONE (02:00)
--- NOTE | 2024-10-06 02:02 | Communication Note ---
Date of Service: October 06, 2024 Patient seen on evening rounds. Events of today noted. Underwent iHD with > 3L removed. Remains on amiodarone infusion. Trial of metoprolol tartrate resulted in hypotension. Remains in AFRVR. BP improved, now off vasopressors. 2.5mg IV Lopressor administered without change. Per recommendation of Dr. Cavanaugh, Digitalization initiated. Dose adjustment per Pharmacy with renal insufficiency. Load Digoxin 250mcg now, 125mcg Q6H x2 doses. Evaluate response. Remainder of plan as ordered. Coding Level of Care Code None
[2024-10-06 04:54] LABS: Hematocrit (blood only) 35.2 % (42.0-52.0); Hemoglobin 12.2 g/dl (14.0-18.0); Mean Corpuscular Hemoglobin 32.4 pg (25.0-34.0); Mean Corpuscular Volume 93.6 fL (80.0-100.0); Platelet Count 249 K/uL (130-400); RDW Standard Deviation 50.1 fL (36.4-46.3); Red Blood Count 3.76 M/uL (4.70-6.10); White Blood Count 19.16 K/ul (4.8-10.8)
[2024-10-06 05:09] LABS: Anion Gap 12.0 (3-11); Blood Urea Nitrogen 77.0 mg/dl (6-23); Calcium 7.8 mg/dl (8.6-10.3); Carbon Dioxide 22.0 mmol/L (21-32); Chloride 100.0 mmol/L (98-107); Creatinine Clr Calc Pharmacy 28.5 ml/min; Glucose 155.0 mg/dl (70-99(Fasting)); Magnesium 2.3 mg/dl (1.7-2.4); Potassium 4.3 mmol/L (3.5-5.1); Sodium 134.0 mmol/L (136-145)
[2024-10-06 05:43] LABS: ANTI-Xa, UFH(UnfractionatedHep 0.31 IU/ml (0.3-0.7)
[2024-10-06] MEDS ORDERED: SODIUM CHLORIDE 0.9% 1,000 ML IV PRN (07:00)
--- NOTE | 2024-10-06 08:04 | XRay Report ---
XR chest 1V portable CLINICAL HISTORY: f/u COMPARISON STUDY: 10/05/2024 FINDINGS: Endotracheal tube tip is stable between the thoracic inlet and the kimberley. Nasogastric tube tip is off the field of view inferiorly. There is stable mild cardiomegaly with mild pulmonary vascu lar congestion. Stable bilateral central catheters. Stable opacity at the right lung base with obscur ation of the right hemidiaphragm. No pneumothorax seen. IMPRESSION: Stable exam. ACT 112: Negative or not required by law. Electronically signed by: Herman Brush M.D. 10/06/2024 8:02 AM
--- NOTE | 2024-10-06 08:16 | Critical Care Progress Note ---
Date of Service October 06, 2024 Assessment & Plan (1) Pneumonia: (2) Pleural effusion: (3) Acute hypoxemic respiratory failure: (4) Thrombocytopenia: (5) Airway intubation performed without difficulty: (6) History of tobacco abuse: (7) Respiratory failure: (8) COPD (chronic obstructive pulmonary disease) with emphysema: (9) Severe sepsis: (10) Acute non-ST elevation myocardial infarction (NSTEMI): (11) Alcohol withdrawal delirium: Plan Impression: 64-year-old male with severe obstructive lung disease at baseline admitted with multifocal pneumonia and hypoxemic respiratory failure with concomitant lactic acidosis. Lactate is improved with IV fluids. He is currently on antibiotics. He was placed on noninvasive positive pressure ventilation admitted to the ICU. Recommendations: Neurologic: Propofol and fentanyl for ICU sedation Midazolam pushes as needed agitation/restlessness MRI brain 09/30/2024: Chronic right cerebellar infarct, no evidence of intracranial mass, no acute changes Repeat CT head 10/06/2024: No acute findings -- Acute alcohol withdrawal History of heavy alcohol use Continue with high-dose thiamine and folic acid Cardiovascular: 2D echo 09/30/2024: Moderate LV dysfunction, EF 40%, RV not well-visualized --Septic shock Sources is multifocal pneumonia --> BAL growing Staph aureus Urine Legionella positive Continue with antibiotics Vasopressor support to keep MAP greater than 65 --New onset A-fib RVR with new onset CHF Could be all related to underlying sepsis Amiodarone bolus then drip started on 09/30/2024 Amiodarone drip was transition to p.o. 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 -- Elevated troponins Likely type II [facility] Continue to trend --Hypertension On losartan at home --Prolonged QTc Avoid QT prolonging medication Continue to monitor Respiratory: CTA chest 09/29/2024 personally reviewed: Centrilobular and paraseptal emphysema appreciated bilaterally Dense consolidative process appreciated in the right upper lobe as well as right middle lobe Minimal right-sided pleural effusion No significant mediastinal lymphadenopathy -- VDRF Intubated 09/30/2024 Likely secondary to multifocal pneumonia Bronc culture from 09/30/2024 growing MRSA S/p repeat bronc 10/02/2024, thin clear secretions obstructing the right lower lobe which were suctioned out Continue with ventilatory support Keep RASS -1 Daily sedation holidays and SBT's Nasal MRSA positive Continue broad-spectrum antibiotics On steroids for severe pneumonia --Small right-sided pleural effusion Appreciated on POCUS 10/01/2024 -- COPD with emphysema On Trelegy 100 at home Continue with nebulized budesonide and Perforomist GI: -- Occult blood positive with loose stools H&H seems to be stable Continue to monitor -- Mild transaminitis Continue to trend Renal: -- NAOMY --> acute renal failure Dialysis started 10/02/2024 Nephrology has been consulted Endocrine: ICU hypoglycemia protocol ID: --Severe multifocal community-acquired pneumonia Procalcitonin 29.2 MRSA positive QTc 418 Rocephin changed to Zosyn on 09/30/2024 Vancomycin changed to ceftaroline on 10/01/2024 Bronch culture growing Staph aureus Urine Legionella antigen came positive on 10/03/2024 Repeat blood culture 10/06/2024, negative to date Heme-onc: -- Thrombocytopenia --> resolved Likely secondary to sepsis versus antibiotics Continue to trend --Prophylaxis VTE: Heparin drip GI: Pantoprazole Lines: Left IJ, left radial, peripheral, positive De La Torre, right IJ dialysis catheter 10/02/2024 Diet: Tube feeds Plan: In/out: -1 L, urine output 155 mL, 3200 mL removed from dialysis yesterday, + 14 L since coming to the hospital Total dialysis fluid removal: 10 L Got loaded with digoxin on 10/06/2024 It seems patient will likely need permacath as well as tracheostomy Will consult vascular as well as ENT tomorrow I will order CT head as well as CT chest to be done today Continue with azithromycin given the Legionella antigen was positive Continue with ceftaroline for MRSA pneumonia Continue with amiodarone drip Case discussed with nephrology Patient's being updated at bedside I have personally spent 39 minutes of critical care time in the direct management of this patient. This is a life/limb threatening event. This includes time spent evaluating patient, direct bedside care, chart review, placing orders, interpretation of diagnostic studies, discussion with consultants, patient, and family members, as well as other required patient management activities. This time is exclusive of all separately billable procedures, and teaching time and separate from and in addition to any other critical care service time. Please note the above document was generated using voice recognition software. It may contain grammatical, syntax or spelling errors. Admission and Anticipated Discharge Date Admission Date: September 29, 2024 Subjective Patient seen and examined at bedside. No acute distress, no adverse events overnight He was breathing over the went Was on 35 propofol and 50 of fentanyl at the time of examination Has been afebrile Of vasopressors Review of Systems 2 Review of Systems: Unobtainable due to endotracheal tube Physical Exam 2 Physical Exam: Constitutional: No acute distress HEENT: PERRLA Respiratory system: Decreased air entry bilaterally, no wheeze, minimal rhonchi, positive crackles bilaterally CVS: S1-S2 positive, no murmurs or gallops, irregular Abdomen: Soft, nontender, nondistended, positive bowel sounds x4, obese Extremities: + 1 pulses bilaterally radialis/ dorsalis pedis, no cyanosis, p ositive pitting edema appreciated bilateral lower extremity as well as upper extremity Neuro: Intubated, sedated, RASS -2 Psych: Unable to assess G/U: Positive De La Torre Skin: no rashes, warm and dry Lymphatic: no cervical or axillary lymphadenopathy Results & Data Results & Data Vital Signs (Past 12 Hours) Vital Signs Temp Pulse Resp BP Pulse Ox O2 Del Method FiO2 10/06/24 07:21 112 H 25 H 93 40 10/06/24 06:30 110 H 24 93 Mechanical Vent 40 10/06/24 06:15 118 H 24 94 Mechanical Vent 40 10/06/24 05:03 36.5 C 115 H 25 H 94 Mechanical Vent 40 10/06/24 04:15 109 H 25 H 94 Mechanical Vent 40 10/06/24 04:00 111 H 133/66 10/06/24 03:06 107 H 27 H 94 Mechanical Vent 40 10/06/24 03:00 40 10/06/24 02:58 111 H 24 93 40 10/06/24 02:00 117 H 26 H 93 Mechanical Vent 40 10/06/24 02:00 125 H 10/06/24 01:31 106 H 140/68 10/06/24 01:03 36.6 C 121 H 25 H 94 Mechanical Vent 40 10/06/24 01:03 114 H 138/68 07/27/25 00:12 107 H 24 94 Mechanical Vent 40 10/06/24 00:00 115 H 131/73 10/05/24 23:47 24 40 10/05/24 23:00 102 H 25 H 93 Mechanical Vent 40 10/05/24 23:00 40 10/05/24 22:51 115 H 10/05/24 22:03 104 H 22 121/57 L 92 Mechanical Vent 40 10/05/24 21:06 Mechanical Vent 40 10/05/24 21:00 105 H 25 H 93 Mechanical Vent 40 Laboratory Results 10/06/24 04:32 10/06/24 04:32 Coding Level of Care Code 20128 CRITICAL CARE 1ST 30-74M Diagnoses Pneumonia J18.9 Pleural effusion J90 Acute hypoxemic respiratory failure J96.01 Thrombocytopenia D69.6 Airway intubation performed without difficulty Z78.9 History of tobacco abuse Z87.891 Respiratory failure J96.90 COPD (chronic obstructive pulmonary disease) with emphysema J43.9 Severe sepsis A41.9; R65.20 Acute non-ST elevation myocardial infarction (NSTEMI) I21.4 Alcohol withdrawal delirium F10.931
[2024-10-06] MEDS: DIGOXIN 125 MCG in SYRINGE 9.5 ML IV SCH (08:47)
[2024-10-06] MEDS ORDERED: PROPOFOL BOLUS FROM BAG IV PRN (08:51)
[2024-10-06] MEDS: STAT IV Infusion **Titration per Protocol STA (09:13)
[2024-10-06] MEDS: SEVELAMER CARBONATE 800 MG TAB PO SCH (09:28)
[2024-10-06] MEDS ORDERED: CALCIUM CARBONATE 500 MG CHEWABLE TAB PO SCH (09:45)
--- NOTE | 2024-10-06 09:53 | Hospitalist Progress Note ---
Date of Service October 06, 2024 Assessment & Plan (1) Hypokalemia: (2) Acute exacerbation of chronic obstructive pulmonary disease: (3) Respiratory failure: (4) COPD (chronic obstructive pulmonary disease) with emphysema: (5) Hypertension: (6) Acute hyponatremia: (7) Acute non-ST elevation myocardial infarction (NSTEMI): (8) Fall: (9) Head injury: Plan This is a 64-year-old morbidly obese male with a history of COPD, hypertension who presents with severe respiratory distress, now on BiPAP. Chest x-ray showed pneumonia. He was given DuoNebs, steroids, ceftriaxone in the emergency room. Labs significant for lactic acidosis of 5, anion gap metabolic acidosis, hyponatremia, hypokalemia, elevated troponin, elevated procalcitonin. His blood pressure dropped while in the ER. He is being admitted to the ICU with acute hypoxic respiratory failure, pneumonia with severe sepsis #Acute hypoxic respiratory failure Due to MRSA and Legionella pneumonia Bronchial lavage growing MRSA Urine Legionella positive Currently on ceftaroline and azithromycin Consulted infectious disease. Remains intubated May proceed towards tracheostomy next week #Community-acquired pneumonia/septic shock Chest x-ray shows right upper and middle lobe consolidation. Possible MRSA pneumonia Bronchial lavage growing staph Urine Legionella antigen positive Currently on ceftaroline and azithromycin. Blood cultures negative Currently on no pressors Weaning down Solu-Cortef Leukocytosis worsening Patient is having a CT chest and head done today. #Acute kidney injury ATN due to septic shock Creatinine still rising Still oliguric/anuric Tolerated dialysis yesterday. Nephrology involved Patient will likely need a permacath #Atrial fibrillation on amiodarone drip and heparin drip Getting digoxin loaded New onset this hospitalization Complicated by CHF Monitor thrombocytopenia Hemoccult positive few days ago. Monitor. #Elevated troponin Patient did not complain of any chest pain EKG reviewed. No ST-T wave changes. Troponins went up higher overnight. Echocardiogram reviewed. Technically difficult study. Most likely demand ischemia due to hypoxia and tachycardia. #Subacute/chronic right cerebellar infarct CT head was done because the patient had a fall with head trauma last night. It showed a subacute/chronic right cerebellar infarct MRI showed a chronic cerebellar infarct Patient has a history of intracranial hemorrhage most likely subdural hematoma when he was life flighted from [facility] to [facility] presby. No records yet #Hypertension Blood pressure is rather on the low side. 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 Patient's blood pressure did not tolerate the IV metoprolol 5 mg. He had needed pressors for a little bit. He is being loaded with digoxin. Continues on amiodarone drip. Noted that his white count is going up. Patient is still not making urine. Review of Systems Review of Systems: All systems reviewed & are unremarkable except as noted in Subjective Physical Exam Physical Exam: General: Morbidly obese patient. Currently intubated and sedated. Currently on dialysis in the ICU Heart: S1, S2/tachycardic, irregular rhythm., no murmur rubs or gallops Lungs: Equal air entry bilaterally. No adventitious breath sounds heard. Abdomen: Soft/nontender/nondistended. No hepatosplenomegaly Extremities: No clubbing/cyanosis. No edema Behavior: Unable to assess due to intubation and sedation Results & Data Results & Data Vital Signs (Past 12 Hours) Vital Signs Temp Pulse Resp BP Pulse Ox O2 Del Method FiO2 10/06/24 08:47 108 H 10/06/24 07:21 112 H 25 H 93 40 10/06/24 06:30 110 H 24 93 Mechanical Vent 40 10/06/24 06:15 118 H 24 94 Mechanical Vent 40 10/06/24 05:03 36.5 C 115 H 25 H 94 Mechanical Vent 40 10/06/24 04:15 109 H 25 H 94 Mechanical Vent 40 10/06/24 04:00 111 H 133/66 10/06/24 03:06 107 H 27 H 94 Mechanical Vent 40 10/06/24 03:00 40 10/06/24 02:58 111 H 24 93 40 10/06/24 02:00 117 H 26 H 93 Mechanical Vent 40 10/06/24 02:00 125 H 10/06/24 01:31 106 H 140/68 10/06/24 01:03 36.6 C 121 H 25 H 94 Mechanical Vent 40 10/06/24 01:03 114 H 138/68 10/06/24 00:12 107 H 24 94 Mechanical Vent 40 10/06/24 00:00 115 H 131/73 10/05/24 23:47 24 40 10/05/24 23:00 102 H 25 H 93 Mechanical Vent 40 10/05/24 23:00 40 10/05/24 22:51 115 H 10/05/24 22:03 104 H 22 121/57 L 92 Mechanical Vent 40 Laboratory Results Abnormal lab results 10/05/24 10/05/24 10/05/24 Range/Units 12:32 16:24 20:43 WBC (4.8-10.8) K/ul RBC (4.70-6.10) M/uL Hgb (14.0-18.0) g/dl Hct (42.0-52.0) % RDW Std Deviation (36.4-46.3) fL RDW Coeff of Alton (11.5-14.5) % Sodium (136-145) mmol/L Anion Gap (3-11) BUN (6-23) mg/dl Creatinine (0.6-1.4) mg/dl BUN/Creatinine Ratio (10-20) Glucose (70-99(Fasting)) mg/dl POC Glucose (70-99) mg/dl POC Glucose (other) 123 H 186 H 136 H (70-99) mg/dl Calcium (8.6-10.3) mg/dl Phosphorus (2.5-4.9) mg/dl 10/05/24 10/06/24 10/06/24 Range/Units 23:34 04:32 04:34 WBC 19.16 H (4.8-10.8) K/ul RBC 3.76 L (4.70-6.10) M/uL Hgb 12.2 L (14.0-18.0) g/dl Hct 35.2 L (42.0-52.0) % RDW Std Deviation 50.1 H (36.4-46.3) fL RDW Coeff of Alton 14.7 H (11.5-14.5) % Sodium 134 L (136-145) mmol/L Anion Gap 12 H (3-11) BUN 77 H (6-23) mg/dl Creatinine 3.66 H (0.6-1.4) mg/dl BUN/Creatinine Ratio 21.0 H (10-20) Glucose 155 H (70-99(Fasting)) mg/dl POC Glucose 152 H (70-99) mg/dl POC Glucose (other) 130 H (70-99) mg/dl Calcium 7.8 L (8.6-10.3) mg/dl Phosphorus 7.5 H (2.5-4.9) mg/dl 10/06/24 Range/Units 08:56 WBC (4.8-10.8) K/ul RBC (4.70-6.10) M/uL Hgb (14.0-18.0) g/dl Hct (42.0-52.0) % RDW Std Deviation (36.4-46.3) fL RDW Coeff of Alton (11.5-14.5) % Sodium (136-145) mmol/L Anion Gap (3-11) BUN (6-23) mg/dl Creatinine (0.6-1.4) mg/dl BUN/Creatinine Ratio (10-20) Glucose (70-99(Fasting)) mg/dl POC Glucose 102 H (70-99) mg/dl POC Glucose (other) (70-99) mg/dl Calcium (8.6-10.3) mg/dl Phosphorus (2.5-4.9) mg/dl Diagnostic Findings Chest X-Ray 10/06/24 07:00 XR chest 1V portable CLINICAL HISTORY: f/u COMPARISON STUDY: 10/05/2024 FINDINGS: Endotracheal tube tip is stable between the thoracic inlet and the kimberley. Nasogastric tube tip is off the field of view inferiorly. There is stable mild cardiomegaly with mild pulmonary vascular congestion. Stable bilateral central catheters. Stable opacity at the right lung base with obscura tion of the right hemidiaphragm. No pneumothorax seen. IMPRESSION: Stable exam. ACT 112: Negative or not required by law. Electronically signed by: Herman Brush M.D. 10/06/2024 8:02 AM PG Care Time/CCT Total # of Minutes Spent Total Time Spent with Patient: Total time spent is greater than 50% in coordination of care (as documented) at patient's floor/unit and/or counseling patient: Coding Level of Care Code 79788 SUB INP/OBS CARE 2/35MIN Diagnoses Hypokalemia E87.6 Acute exacerbation of chronic obstructive pulmonary disease J44.1 Respiratory failure J96.90 COPD (chronic obstructive pulmonary disease) with emphysema J43.9 Hypertension I10 Acute hyponatremia E87.1 Acute non-ST elevation myocardial infarction (NSTEMI) I21.4 Fall W19.XXXA Head injury S09.90XA
[2024-10-06] MEDS ORDERED: CALCIUM ACETATE 667 MG CAP/TAB PO SCH ×2 (10:00→14:00)
--- NOTE | 2024-10-06 10:36 | CT Scan Report ---
CT head/brain wo con CLINICAL HISTORY: encephalopathy. TECHNIQUE: Multiple axial CT images of the head were obtained without contrast. A dose lowering tech nique was utilized adhering to the principles of ALARA. COMPARISON: 09/29/2024 FINDINGS: There is motion artifact. No intracranial hemorrhage seen. No mass effect, midline shift, o r hydrocephalus. Stable prior right craniectomy. No skull fracture seen. A few of the ethmoid air simin ls are opacified. Otherwise the paranasal sinuses are clear. No mastoid effusion. IMPRESSION: No acute findings. ACT 112: Negative or not required by law. The above report was generated using voice recognition software. It may contain grammatical, syntax o r spelling errors. Electronically signed by: Herman Brush M.D. 10/06/2024 10:35 AM
[2024-10-06] MEDS: CALCIUM ACETATE 667 MG CAP/TAB PO ONE (11:10)
--- NOTE | 2024-10-06 11:10 | CT Scan Report ---
CT chest diagnostic wo con CT DOSE: 1873.33 mGy.cm CLINICAL HISTORY: r/o abscess. TECHNIQUE: Multiaxial CT images of the chest were performed without contrast. A dose lowering techni que was utilized adhering to the principles of ALARA. COMPARISON STUDY: 09/29/2024 FINDINGS: There is motion artifact. Endotracheal tube tip is between the thoracic inlet and the mary a. Bilateral central catheter tips are near the brachiocephalic SVC junction. There are mild airway s ecretions. Nasogastric tube tip is seen entering the stomach with the tip off the field of view infer iorly. There is a very small right pleural effusion which layers dependently. There is mild emphysema . There is dense consolidation with air bronchograms of the entire right lower lobe and a large porti on of the right middle lobe and lower aspect of the right lower lobe, increased. There is dependent a telectasis at the left lower lobe, increased. There is no pneumothorax. No gross pulmonary abscess se en. Stable mildly enlarged right pretracheal lymph node measuring 2.2 cm. There are moderate coronary artery calcifications. No pericardial effusion. There are mild thoracic spine degenerative changes. IMPRESSION: 1. Increased dense pneumonia at the right lung as described. No gross pulmonary abscess seen. 2. Otherwise as described. ACT 112: Negative or not required by law. Electronically signed by: Herman Brush M.D. 10/06/2024 11:08 AM
--- NOTE | 2024-10-06 12:37 | Nephrology Progress Note ---
Date of Service October 06, 2024 Assessment & Plan (1) NAOMY (acute kidney injury): Plan: * NAOMY - c/w ischemic ATN. 1st HD 10/02 * Dialyzed yesterday for 3.2 L UF * Remains oliguric. Patient received 3.3 L IVF yesterday. Will provide HD today and attempt 3.0-3.5 L UF to maintain euvolemia. Will guide UF according to BP and HR response. Orders have been placed in EMR and HD RN notified * Will likely need to convert temporary dialysis catheter to IJ TCC next week * Monitor I&O's * Serum PO4 is elevated. On renal enteral feeding. Will add Ca-acetate 667 mg BID. Monitor serum PO4 * Repeat BMP in am (2) Severe sepsis with septic shock: Plan: * Clinically improving. Remains on azithromycin and ceftaroline. ID following. BAL --> MRSA. Legionella +. (3) Acute hypoxemic respiratory failure: Plan: * Remains ventilator dependent. UF as tolerated. Admission and Anticipated Discharge Date Admission Date: September 29, 2024 Subjective Mr. Moyer was evaluated in the ICU this morning. He remains ventilator dependent. Pressor therapy has been weaned to off. He remains oliguric with high obligate fluid intake. He received 3.3 L volume yesterday Review of Systems Review of Systems: Unobtainable due to endotracheal tube Physical Exam Constitutional: + ill appearing Eyes: + anicteric sclerae ENMT: external ear and nose normal, oropharynx normal Neck: trachea midline, no thyromegaly Cardiovascular: Rate/Rhythm: + tachycardic Extremities: + edema (2-3+ dependent edema of the arms and legs) Gastrointestinal (Abdomen): normal bowel sounds, soft, nontender, no hepatosplenomegaly Musculoskeletal: Extremities: no cyanosis and no clubbing Skin: no rashes, warm and dry Results & Data Vital Signs (Past 12 Hours) Vital Signs Temp Pulse Resp BP Pulse Ox O2 Del Method FiO2 10/06/24 11:03 36.6 C 10/06/24 11:00 40 10/06/24 10:54 112 H 25 H 92 40 10/06/24 10:52 104 H 24 143/93 H 92 Mechanical Vent 40 10/06/24 09:42 120 H 26 H 94 Mechanical Vent 40 10/06/24 09:30 109 H 25 H 95 Mechanical Vent 40 10/06/24 09:15 118 H 25 H 95 Mechanical Vent 40 10/06/24 09:00 118 H 25 H 94 Mechanical Vent 40 10/06/24 08:47 108 H 10/06/24 08:45 104 H 24 94 Mechanical Vent 40 10/06/24 08:30 116 H 22 94 Mechanical Vent 40 10/06/24 08:18 114 H 24 93 Mechanical Vent 40 10/06/24 08:03 112 H 22 94 Mechanical Vent 40 10/06/24 08:00 Mechanical Vent 40 10/06/24 07:45 114 H 25 H 94 Mechanical Vent 40 10/06/24 07:36 111 H 22 95 Mechanical Vent 40 10/06/24 07:30 40 10/06/24 07:21 110 H 24 135/86 93 Mechanical Vent 40 10/06/24 07:21 112 H 25 H 93 40 10/06/24 07:00 36.5 C 10/06/24 07:00 110 H 23 92 Mechanical Vent 40 10/06/24 06:30 110 H 24 93 Mechanical Vent 40 10/06/24 06:15 118 H 24 94 Mechanical Vent 40 10/06/24 05:03 36.5 C 115 H 25 H 94 Mechanical Vent 40 10/06/24 04:15 109 H 25 H 94 Mechanical Vent 40 10/06/24 04:00 111 H 133/66 10/06/24 03:06 107 H 27 H 94 Mechanical Vent 40 10/06/24 03:00 40 10/06/24 02:58 111 H 24 93 40 10/06/24 02:00 117 H 26 H 93 Mechanical Vent 40 10/06/24 02:00 125 H 10/06/24 01:31 106 H 140/68 10/06/24 01:03 36.6 C 121 H 25 H 94 Mechanical Vent 40 10/06/24 01:03 114 H 138/68 Laboratory Results Laboratory Results - last 24 hr 10/05/24 10/05/24 10/05/24 12:32 14:10 16:24 WBC RBC Hgb Hct MCV MCH MCHC RDW Std Deviation RDW Coeff of Alton Plt Count MPV Absolute Nucleated RBC Nucleated RBC % (auto) Heparin Anti-Xa, Unfract Sodium Potassium Chloride Carbon Dioxide Anion Gap BUN Creatinine Est Cr Clr Drug Dosing eGFR BUN/Creatinine Ratio Glucose POC Glucose POC Glucose (other) 123 H 186 H Calcium Phosphorus Magnesium Stl C. diff Tox B Gene Negative Cdiff Gene Stl C. diff [id number] NEGATIVE 10/05/24 10/05/24 10/06/24 20:43 23:34 04:32 WBC 19.16 H RBC 3.76 L Hgb 12.2 L Hct 35.2 L MCV 93.6 MCH 32.4 MCHC 34.7 RDW Std Deviation 50.1 H RDW Coeff of Alton 14.7 H Plt Count 249 MPV 11.9 Absolute Nucleated RBC 0.04 Nucleated RBC % (auto) 0.2 Heparin Anti-Xa, Unfract 0.31 Sodium 134 L Potassium 4.3 Chloride 100 Carbon Dioxide 22 Anion Gap 12 H BUN 77 H Creatinine 3.66 H Est Cr Clr Drug Dosing 28.5 eGFR 17.83 BUN/Creatinine Ratio 21.0 H Glucose 155 H POC Glucose POC Glucose (other) 136 H 130 H Calcium 7.8 L Phosphorus 7.5 H Magnesium 2.3 Stl C. diff Tox B Gene Stl C. diff [id number] 10/06/24 10/06/24 10/06/24 04:34 08:56 11:49 WBC RBC Hgb Hct MCV MCH MCHC RDW Std Deviation RDW Coeff of Alton Plt Count MPV Absolute Nucleated RBC Nucleated RBC % (auto) Heparin Anti-Xa, Unfract Sodium Potassium Chloride Carbon Dioxide Anion Gap BUN Creatinine Est Cr Clr Drug Dosing eGFR BUN/Creatinine Ratio Glucose POC Glucose 152 H 102 H 93 POC Glucose (other) Calcium Phosphorus Magnesium Stl C. diff Tox B Gene Stl C. diff [id number] PG Care Time/CCT Total # of Minutes Spent Total Time Spent with Patient: Total time spent is greater than 50% in coordination of care (as documented) at patient's floor/unit and/or counseling patient: Coding Level of Care Code 54638 SUB INP/OBS CARE 3/50MIN Diagnoses NAOMY (acute kidney injury) N17.9 Severe sepsis with septic shock A41.9; R65.21 Acute hypoxemic respiratory failure J96.01
[2024-10-06] MEDS: CALCIUM ACETATE 667 MG CAP/TAB PO SCH (20:13)
--- NOTE | 2024-10-07 02:37 | XRay Report ---
EXAM: XR chest 1V portable CLINICAL HISTORY: hypoxemia, pneumonia TECHNIQUE: An X-ray image of the chest is obtained in AP projection. COMPARISON: prior CR study dated 10/05/2024 FINDINGS: Lines and Tubes: ET tube, tip approximately 5.3 cm superior to the kimberley, which is an adequate position. Left-sided central venous line is present, with its distal tip projecting over the superior vena cava. NG tube, reaching left infradiaphragmatic, tip not seen Right-sided central venous catheter, tip at SVC Pulmonary Parenchyma: Unchanged right-sided mild to moderate pleural effusion and obscuration of the right lower lung zone. Clear left costophrenic angle Heart and Mediastinum: Mild cardiomegaly and a prominent aortic arch were noted. Bony Thorax: Bony thorax appears intact without fractures or deformities. Soft Tissues: Soft tissues overlying the chest wall are unremarkable. IMPRESSION: 1. ET tube, tip approximately 5.3 cm superior to the kimberley, which is an adequate position. Unchanged. 2. Left-sided central venous line is present, with its distal tip projecting over the superior vena cava. Unchanged. 3. NG tube, reaching left infradiaphragmatic, tip not seen. Unchanged. 4. Right-sided central venous catheter, tip at SVC. Unchanged. 5. Unchanged right-sided mild to moderate pleural effusion and obscuration of the right lower lung zone. Electronically signed by Carl Meraz 10-07-2024 02:36 AM
[2024-10-07 04:52] LABS: Hematocrit (blood only) 35.7 % (42.0-52.0); Hemoglobin 11.8 g/dl (14.0-18.0); Mean Corpuscular Hemoglobin 31.3 pg (25.0-34.0); Mean Corpuscular Volume 94.7 fL (80.0-100.0); Platelet Count 236 K/uL (130-400); RDW Standard Deviation 52.8 fL (36.4-46.3); Red Blood Count 3.77 M/uL (4.70-6.10); White Blood Count 19.52 K/ul (4.8-10.8)
[2024-10-07 05:07] LABS: Anion Gap 12.0 (3-11); Blood Urea Nitrogen 65.0 mg/dl (6-23); Calcium 8.0 mg/dl (8.6-10.3); Carbon Dioxide 23.0 mmol/L (21-32); Chloride 99.0 mmol/L (98-107); Creatinine Clr Calc Pharmacy 31.1 ml/min; Glucose 102.0 mg/dl (70-99(Fasting)); Magnesium 2.1 mg/dl (1.7-2.4); Potassium 4.0 mmol/L (3.5-5.1); Sodium 134.0 mmol/L (136-145); Triglycerides 133.0 mg/dl (0-150)
[2024-10-07 05:11] LABS: ANTI-Xa, UFH(UnfractionatedHep 0.27 IU/ml (0.3-0.7)
[2024-10-07] MEDS ORDERED: SODIUM CHLORIDE 0.9% 1,000 ML IV PRN (07:00)
[2024-10-07] MEDS ORDERED: KETAMINE HCL 10MG/ML SYR IV ONE (08:25)
--- NOTE | 2024-10-07 08:31 | Infectious Disease Progress Nt ---
Date of Service October 07, 2024 Assessment & Plan (1) Pneumonia: (2) Acute hypoxemic respiratory failure: (3) NAOMY (acute kidney injury): Plan Problems: #MRSA and Legionella pneumonia #Acute hypoxic respiratory failure s/p intubation 09/30 #NAOMY Micro: 10/05 C diff neg 10/02 R main stem BAL Bronchial cx: NG. GS no org Fungal cx: NGTD AFB smear neg, cx pending Legionella PCR: pending 09/30 RML BAL Bronchial cx: MRSA Fungal cx: pending AFB smear neg, cx pending Histo/Blasto PCR: neg Cocci PCR: neg Legionella PCR: positive Flu, RSV PCR: pending 09/29 Sputum cx: moderate normal anne 09/29 MRSA nares: positive 09/29 BCx x2: NGTD 09/29 Urine Legionella Ag: detected Abx: Azithro 09/29 - present Ceftaroline 10/01 - present Pip-tazo 10/01 - 10/02 Ceftriaxone 09/29 - 09/30 Vanc 09/29 - 10/01 64 yo M with COPD, HTN who presented on 09/29 with shortness of breath, admitted with AHRF, MRSA and Legionella pneumonia. On presentation, he was afebrile, HR 165, BP 116/89 (later dropped as low as 88/64), RR 34, requiring BiPAP. Labs showed WBC 10.41, plt 121, Na 124, K 2.3, Cr 1.16, AST 86, Tbili 1.2, lactate 5.4, procal 4.49. CTA chest with no PE, and RUL and RML pneumonia. He was started on vanc, ceftriaxone, azithromycin, solumedrol and admitted to the ICU. He was intubated on 09/30 due to respiratory failure. A bronchoscopy was performed, which showed a moderate amount of brown-red secretions in the R main which was suctioned out. RML BAL cx grew MRSA, and BAL Legionella PCR positive. Urine Legionella Ag returned positive. Overnight on 10/01, pt went into afib with RVR, required norepi, vasopressin, phenylephrine. Was persistently febrile. WBC increased to 19.28. Ceftriaxone was changed to Zosyn. Vanc was changed to ceftaroline. Kidney function worsening, with Cr up to 3.15 on 10/02. On phenylephrine and vasopressin. Repeat bronchoscopy done 10/02, which showed moderate amount of clear brown secretions in the R main going into the RLL. 10/02 BAL culture NGTD. Recommendations: - Continue azithromycin 500 mg IV q24h for Legionella pneumonia - Would suggest switching from ceftaroline to linezolid 600 mg BID. Ceftaroline not as well studied in MRSA pneumonia (avoiding vanc due to NAOMY. Linezolid should be ok with fentanyl, as serotonin syndrome is rare) Will continue to follow Admission and Anticipated Discharge Date Admission Date: September 29, 2024 Subjective This patient recommendation is based on a telemedicine consult request which was completed asynchronously through chart review and information provided by the primary physician. The patient was not seen or examined today. The evaluation is consultative in nature and all patient care and treatment decisions can either be accepted or rejected by the patient's primary hospital-based treating physician using their own independent medical judgment for their patient. Time Spent Reviewing Chart: 11 - 20 minutes Afebrile WBC 19.52 CT chest yesterday with increased dense pneumonia at R lung, no abscess 10/02 BAL cx NGTD Results & Data Vital Signs (Past 12 Hours) Vital Signs Temp Pulse Resp BP Pulse Ox O2 Del Method FiO2 10/07/24 07:51 127 H 26 H 93 60 10/07/24 06:30 116 H 24 95 Mechanical Vent 60 10/07/24 06:12 103 H 24 95 Mechanical Vent 60 10/07/24 05:30 104 H 24 94 Mechanical Vent 60 10/07/24 05:03 120 H 26 H 91 Mechanical Vent 60 10/07/24 04:00 112 H 146/62 H 10/07/24 03:44 112 H 26 H 94 50 10/07/24 03:00 118 H 26 H 94 Mechanical Vent 50 10/07/24 03:00 50 10/07/24 02:00 103 H 27 H 95 Mechanical Vent 50 10/07/24 01:24 105 H 54 H 87 L Mechanical Vent 50 10/07/24 00:03 36.9 C 119 H 28 H 93 Mechanical Vent 50 10/07/24 00:00 125 H 148/67 H 10/07/24 00:00 125 H 10/06/24 23:30 116 H 27 H 94 50 10/06/24 23:06 105 H 29 H 95 Mechanical Vent 50 10/06/24 23:00 50 10/06/24 22:00 125 H 25 H 92 Mechanical Vent 50 10/06/24 21:18 109 H 26 H 91 Mechanical Vent 50 10/06/24 20:58 Mechanical Vent Laboratory Results Short CBC 10/07/24 Range/Units 04:09 WBC 19.52 H (4.8-10.8) K/ul Hgb 11.8 L (14.0-18.0) g/dl Hct 35.7 L (42.0-52.0) % Plt Count 236 (130-400) K/uL BMP 10/07/24 04:09 Sodium 134 L Potassium 4.0 Chloride 99 Carbon Dioxide 23 BUN 65 H Creatinine 3.25 H D Glucose 102 H Calcium 8.0 L Diagnostic Findings Chest X-Ray 10/05/24 08:31 XR chest 1V portable CLINICAL HISTORY: f/u COMPARISON STUDY: 10/04/2024 FINDINGS: Endotracheal tube tip is stable between the thoracic inlet and the kimberley. Nasogastric tube tip is off the field of view inferiorly. Stable bilateral central catheters. Stable cardiomegaly with mild pulmonary vascular congestion. Stable dense opacity at the right mid and lower lung with o bscuration of the right hemidiaphragm. No pneumothorax. IMPRESSION: Stable exam. ACT 112: Negative or not required by law. Electronically signed by: Herman Brush M.D. 10/05/2024 9:34 AM Chest X-Ray 10/06/24 07:00 XR chest 1V portable CLINICAL HISTORY: f/u COMPARISON STUDY: 10/05/2024 FINDINGS: Endotracheal tube tip is stable between the thoracic inlet and the kimberley. Nasogastric tube tip is off the field of view inferiorly. There is stable mild cardiomegaly with mild pulmonary vascular congestion. Stable bilateral central catheters. Stable opacity at the right lung base with obscuration of the right hemidiaphragm. No pneumothorax seen. IMPRESSION: Stable exam. ACT 112: Negative or not required by law. Electronically signed by: Herman Brush M.D. 10/06/2024 8:[address] 10/06/24 08:56 CT chest diagnostic wo con CT DOSE: 1873.33 mGy.cm CLINICAL HISTORY: r/o abscess. TECHNIQUE: Multiaxial CT images of the chest were performed without contrast. A dose lowering technique was utilized adhering to the principles of ALARA. COMPARISON STUDY: 09/29/2024 FINDINGS: There is motion artifact. Endotracheal tube tip is between the thoracic inlet and the kimberley. Bilateral central catheter tips are near the brachiocephalic SVC junction. There are mild airway secretions. Nasogastric tube tip is seen entering the stomach with the tip off the field of view inferiorly. There is a very small right pleural effusion which layers dependently. There is mild emphysema. There is dense consolidation with air bronchograms of the entire right lower lobe and a large portion of the right middle lobe and lower aspect of the right lower lobe, increased. There is dependent atelectasis at the left lower lobe, increased. There is no pneumothorax. No gross pulmonary abscess seen. Stable mildly enlarged right pretracheal lymph node measuring 2.2 cm. There are moderate coronary artery calcifications. No pericardial effusion. There are mild thoracic spine degenerative changes. IMPRESSION: 1. Increased dense pneumonia at the right lung as described. No gross pulmonary abscess seen. 2. Otherwise as described. ACT 112: Negative or not required by law. Electronically signed by: Herman Brush M.D. 10/06/2024 11:[address] 10/06/24 08:56 CT head/brain wo con CLINICAL HISTORY: encephalopathy. TECHNIQUE: Multiple axial CT images of the head were obtained without contrast. A dose lowering technique was utilized adhering to the principles of ALARA. COMPARISON: 09/29/2024 FINDINGS: There is motion artifact. No intracranial hemorrhage seen. No mass effect, midline shift, or hydrocephalus. Stable prior right craniectomy. No skull fracture seen. A few of the ethmoid air cells are opacified. Otherwise the paranasal sinuses are clear. No mastoid effusion. IMPRESSION: No acute findings. ACT 112: Negative or not required by law. The above report was generated using voice recognition software. It may contain grammatical, syntax or spelling errors. Electronically signed by: Herman Brush M.D. 10/06/2024 10:35 AM Chest X-Ray 10/07/24 00:55 EXAM: XR chest 1V portable CLINICAL HISTORY: hypoxemia, pneumonia TECHNIQUE: An X-ray image of the chest is obtained in AP projection. COMPARISON: prior CR study dated 10/05/2024 FINDINGS: Lines and Tubes: ET tube, tip approximately 5.3 cm superior to the kimberley, which is an adequate position. Left-sided central venous line is present, with its distal tip projecting over the superior vena cava. NG tube, reaching left infradiaphragmatic, tip not seen Right-sided central venous catheter, tip at SVC Pulmonary Parenchyma: Unchanged right-sided mild to moderate pleural effusion and obscuration of the right lower lung zone. Clear left costophrenic angle Heart and Mediastinum: Mild cardiomegaly and a prominent aortic arch were noted. Bony Thorax: Bony thorax appears intact without fractures or deformities. Soft Tissues: Soft tissues overlying the chest wall are unremarkable. IMPRESSION: 1. ET tube, tip approximately 5.3 cm superior to the kimberley, which is an adequate position. Unchanged. 2. Left-sided central venous line is present, with its distal tip projecting over the superior vena cava. Unchanged. 3. NG tube, reaching left infradiaphragmatic, tip not seen. Unchanged. 4. Right-sided central venous catheter, tip at SVC. Unchanged. 5. Unchanged right-sided mild to moderate pleural effusion and obscuration of the right lower lung zone. Electronically signed by Carl Meraz 10-07-2024 02:36 AM Medications Administered Current Inpatient Medications Budesonide (Budesonide 0.25 Mg/2 Ml Vial (Pulmicort)) 0.25 mg NEB BIDR ANA Stop: 10/30/24 06:59 Last Admin: 10/07/24 07:07 Dose: 0.25 mg Calcium Acetate (Calcium Acetate 667 Mg Cap/Tab) 667 mg PO BID ANA Stop: 11/05/24 13:59 Last Admin: 10/06/24 20:13 Dose: 667 mg Dextrose (Dextrose 50% 50 Ml Syringe) 25 - 50 ml IV UD PRN; Protocol PRN Reason: Hypoglycemia Protocol Stop: 10/31/24 00:18 Enteral Nutritional Formula (Novasource Renal 2.0 Martínez 1000ml Bag) 1,000 ml OG .See Protocol ANA; Protocol Stop: 11/02/24 10:29 Last Admin: 10/06/24 17:22 Dose: 1,000 ml Fentanyl Citrate (Fentanyl Bolus From Bag) 50 mcg IV Q60M PRN PRN Reason: Pain or Agitation Stop: 10/14/24 08:15 Last Admin: 10/05/24 15:51 Dose: 50 mcg Folic Acid (Folic Acid 1 Mg Tab) 1 mg PO DAILY ANA Stop: 11/03/24 08:59 Last Admin: 10/06/24 09:04 Dose: 1 mg Glucagon (Glucagon For Inj 1 Mg Vial) 1 mg SQ UD PRN; Protocol PRN Reason: Hypoglycemia Protocol Stop: 10/31/24 00:18 Glucose (Glucose 40% Gel 15 Gm Tube) 15 - 30 gm PO UD PRN; Protocol PRN Reason: Hypoglycemia Protocol Stop: 10/31/24 00:18 Glucose (Glucose 10 Tab/Tube) 4 - 8 tab PO UD PRN; Protocol PRN Reason: Hypoglycemia Protocol Stop: 10/31/24 00:18 Heparin Sodium (Beef Lung) (Heparin 10 Unit/Ml 5 Ml Flush) 5 ml FLUSH PRN PRN PRN Reason: Flush Stop: 11/04/24 10:26 Pantoprazole Sodium (Protonix) 40 mg in 10 mls @ 5 mls/min IV BID ANA Stop: 10/30/24 08:59 Last Admin: 10/06/24 20:15 Dose: 5 mls/min Fentanyl Citrate (Fentanyl Citrate) 2,500 mcg in 250 mls @ 7.5 mls/hr IV .[id number] ANA; Protocol Stop: 10/14/24 08:29 Last Titration: 10/07/24 07:06 Dose: 75 mcg/hr, 7.5 mls/hr Heparin Sodium/Dextrose (Heparin 29966 Unit/500 Ml D5w) 25,000 units in 500 mls @ 0 mls/hr IV .Q0M ANA; Protocol Stop: 10/31/24 01:59 Last Admin: 10/07/24 08:21 Dose: Not Given Phenylephrine HCl (Phenylephrine/Nss) 25 mg in 250 mls @ 0 mls/hr IV .Q0M ANA; Protocol Stop: 10/31/24 07:44 Last Titration: 10/05/24 21:51 Dose: 0 mcg/kg/min, 0 mls/hr Ceftaroline Fosamil 300 mg/ (Sodium Chloride) 260 mls @ 250 mls/hr IV Q12H ANA; Protocol Stop: 10/07/24 19:59 Last Infusion: 10/06/24 21:37 Dose: Infused Azithromycin (Zithromax) 500 mg in 255 mls @ 127.5 mls/hr IV Q24H ANA Stop: 10/08/24 23:59 Last Infusion: 10/06/24 16:58 Dose: Infused Hydrocortisone Sodium (Succinate 50 mg/ Syringe) 1 mls @ 4 mls/min IV DAILY [facility] Stop: 10/09/24 09:01 Amiodarone HCl/Dextrose (Nexterone / D5w) 360 mg in 200 mls @ 16.667 mls/hr IV .Q12H [facility] Stop: 11/03/24 21:59 Last Admin: 10/06/24 20:34 Dose: 0.5 mg/min, 16.7 mls/hr Propofol (Diprivan) 1,000 mg in 100 mls @ 15.768 mls/hr IV .Q6H21M ANA; Protocol Stop: 10/09/24 08:59 Last Titration: 10/07/24 07:06 Dose: 35 mcg/kg/min, 27.6 mls/hr Sodium Chloride (Nss) 1,000 mls @ 0 mls/hr IV .Q0M PRN PRN Reason: For Hemodialysis Use ONLY Stop: 10/07/24 12:59 Insulin Aspart (Insulin Aspart Per Unit Charge) 0 units SC Q4 [facility] Stop: 11/02/24 11:59 Last Admin: 10/07/24 04:18 Dose: 1 units Insulin Glargine (Lantus Per Unit Charge) 10 units SC DAILY [facility] Stop: 11/03/24 10:59 Last Admin: 10/06/24 09:27 Dose: 10 units Ketamine HCl (Ketamine Hcl 10mg/Ml Syr) 0.1 mg IV NOW ONE Stop: 10/07/24 08:26 Levalbuterol HCl (Levalbuterol 1.25 Mg/3 Ml Neb) 1.25 mg NEB Q8R [facility] Stop: 10/30/24 14:59 Last Admin: 10/07/24 07:07 Dose: 1.25 mg Miscellaneous (Carbohydrates For Hypoglycemia ) 15 - 30 gm PO UD PRN PRN Reason: Hypoglycemia Protocol Stop: 10/31/24 00:18 Miscellaneous Information (Pharmacy Glycemic Mgmt Consult) 1 each N/A UD PRN PRN Reason: Consult Stop: 10/31/24 09:59 Nutritional Formula (Prosource No Carb 30 Ml/Pkt) 30 ml OG TID [facility] Stop: 11/02/24 13:59 Last Admin: 10/06/24 20:13 Dose: 30 ml Propofol (Propofol Bolus From Bag) 20 mg IV Q5M PRN PRN Reason: Sedation Stop: 10/09/24 08:50 Sodium Chloride (Sodium Chlor 7% 4 Ml Neb) 4 ml NEB BIDR ANA Stop: 11/03/24 18:59 Last Admin: 10/07/24 07:07 Dose: 4 ml Sterile Water (Tube Feeding Water Flush) 30 ml GT Q4H ANA Stop: 10/30/24 10:29 Last Admin: 10/07/24 06:22 Dose: 30 ml Thiamine HCl (Thiamine Hcl 100 Mg Tab) 100 mg PO DAILY ANA Stop: 11/03/24 08:59 Last Admin: 10/06/24 09:04 Dose: 100 mg
[2024-10-07] MEDS ORDERED: STAT IV/IM STA ×2 (08:51→13:39)
--- NOTE | 2024-10-07 08:51 | Nephrology Progress Note ---
Date of Service October 07, 2024 Assessment & Plan (1) NAOMY (acute kidney injury): Plan: * NAOMY - c/w ischemic ATN. 1st HD 10/02 * Dialyzed yesterday for 3.2 L UF * Remains oliguric. Patient received 2.9L IVF yesterday. Will provide HD today and attempt 4.4 L UF. Will guide UF according to BP and HR response. Orders have been placed in EMR and HD RN notified * Will likely need to convert temporary dialysis catheter to IJ TCC next week * Monitor I&O's * Serum PO4 is elevated. On renal enteral feeding. Ca-acetate 667 mg BID added 10/06/24. Monitor serum PO4 * Repeat BMP in am (2) Severe sepsis with septic shock: Plan: * Clinically improving. Remains on azithromycin and linezolid. ID following. BAL --> MRSA. Legionella +. (3) Acute hypoxemic respiratory failure: Plan: * Remains ventilator dependent. UF as tolerated. Admission and Anticipated Discharge Date Admission Date: September 29, 2024 Subjective Mr. Moyer was evaluated in the ICU this morning. He remains ventilator dependent. Pressor therapy has been weaned to off. He remains oliguric with high obligate fluid intake. He received 2.9 L volume yesterday Review of Systems Review of Systems: Unobtainable due to endotracheal tube Physical Exam Constitutional: + ill appearing Eyes: + anicteric sclerae ENMT: external ear and nose normal, oropharynx normal Neck: trachea midline, no thyromegaly Cardiovascular: Rate/Rhythm: + tachycardic Extremities: + edema (2-3+ dependent edema of the arms and legs) Gastrointestinal (Abdomen): normal bowel sounds, soft, nontender, no hepatosplenomegaly Musculoskeletal: Extremities: no cyanosis and no clubbing Skin: no rashes, warm and dry Results & Data Vital Signs (Past 12 Hours) Vital Signs Temp Pulse Resp BP Pulse Ox O2 Del Method FiO2 10/07/24 07:51 127 H 26 H 93 60 10/07/24 06:30 116 H 24 95 Mechanical Vent 60 10/07/24 06:12 103 H 24 95 Mechanical Vent 60 10/07/24 05:30 104 H 24 94 Mechanical Vent 60 10/07/24 05:03 120 H 26 H 91 Mechanical Vent 60 10/07/24 04:00 112 H 146/62 H 10/07/24 03:44 112 H 26 H 94 50 10/07/24 03:00 118 H 26 H 94 Mechanical Vent 50 10/07/24 03:00 50 10/07/24 02:00 103 H 27 H 95 Mechanical Vent 50 10/07/24 01:24 105 H 54 H 87 L Mechanical Vent 50 10/07/24 00:03 36.9 C 119 H 28 H 93 Mechanical Vent 50 10/07/24 00:00 125 H 148/67 H 10/07/24 00:00 125 H 10/06/24 23:30 116 H 27 H 94 50 10/06/24 23:06 105 H 29 H 95 Mechanical Vent 50 10/06/24 23:00 50 10/06/24 22:00 125 H 25 H 92 Mechanical Vent 50 10/06/24 21:18 109 H 26 H 91 Mechanical Vent 50 10/06/24 20:58 Mechanical Vent Laboratory Results Laboratory Results - last 24 hr 10/06/24 10/06/24 10/06/24 08:56 11:49 16:24 WBC RBC Hgb Hct MCV MCH MCHC RDW Std Deviation RDW Coeff of [place] Plt Count MPV Absolute Nucleated RBC Nucleated RBC % (auto) Heparin Anti-Xa, Unfract Sodium Potassium Chloride Carbon Dioxide Anion Gap BUN Creatinine Est Cr Clr Drug Dosing eGFR BUN/Creatinine Ratio Glucose POC Glucose 102 H 93 126 H Calcium Phosphorus Magnesium Triglycerides 10/06/24 10/07/24 10/07/24 20:21 00:08 04:00 WBC RBC Hgb Hct MCV MCH MCHC RDW Std Deviation RDW Coeff of [place] Plt Count MPV Absolute Nucleated RBC Nucleated RBC % (auto) Heparin Anti-Xa, Unfract Sodium Potassium Chloride Carbon Dioxide Anion Gap BUN Creatinine Est Cr Clr Drug Dosing eGFR BUN/Creatinine Ratio Glucose POC Glucose 122 H 110 H 101 H Calcium Phosphorus Magnesium Triglycerides 10/07/24 10/07/24 04:09 08:47 WBC 19.52 H RBC 3.77 L Hgb 11.8 L Hct 35.7 L MCV 94.7 MCH 31.3 MCHC 33.1 RDW Std Deviation 52.8 H RDW Coeff of [place] 15.2 H Plt Count 236 MPV 11.9 Absolute Nucleated RBC 0.02 Nucleated RBC % (auto) 0.1 Heparin Anti-Xa, Unfract 0.27 L Sodium 134 L Potassium 4.0 Chloride 99 Carbon Dioxide 23 Anion Gap 12 H BUN 65 H Creatinine 3.25 H D Est Cr Clr Drug Dosing 31.1 eGFR 20.56 BUN/Creatinine Ratio 20.0 Glucose 102 H POC Glucose 106 H Calcium 8.0 L Phosphorus 7.4 H Magnesium 2.1 Triglycerides 133 PG Care Time/CCT Total # of Minutes Spent Total Time Spent with Patient: Total time spent is greater than 50% in coordination of care (as documented) at patient's floor/unit and/or counseling patient: Coding Level of Care Code 73136 SUB INP/OBS CARE 3/50MIN Diagnoses NAOMY (acute kidney injury) N17.9 Severe sepsis with septic shock A41.9; R65.21 Acute hypoxemic respiratory failure J96.01
[2024-10-07] MEDS: HYDROCORTISONE SOD 50 MG in SYRINGE 0 ML IV SCH ×2 (08:58→15:47)
[2024-10-07] MEDS: KETAMINE HCL INJ 50 MG/ML 10 ML VIAL IV ONE (09:37)
[2024-10-07] MEDS: dexMEDEtomidine 200 MCG/50 ML BAG IV SCH (09:38)
[2024-10-07 09:41] LABS: Thyroid Stimulating Hormone 5.999 uIu/ml (0.300-4.500)
[2024-10-07 10:03] LABS: Alanine Aminotransferase 121.0 U/L (7-52); Alkaline Phosphatase 198.0 U/L (34-104); Bilirubin,Total 0.5 mg/dl (0.2-1.0); Lipase 692.0 U/L (11-82); Total Protein 5.7 gm/dl (6.0-8.3)
--- NOTE | 2024-10-07 10:04 | XRay Report ---
KUB HISTORY: Eval for abdominal distention COMPARISON STUDY: 09/30/2024 FINDINGS: Nasogastric tube tip is in the proximal body of the stomach, stable. No bowel distention se en. No gross free air. Stable opacity at the right lung base. IMPRESSION: No specific evidence of bowel obstruction seen ACT 112: Negative or not required by law. The above report was generated using voice recognition software. It may contain grammatical, syntax o r spelling errors. Electronically signed by: Herman Brush M.D. 10/07/2024 10:02 AM
--- NOTE | 2024-10-07 10:12 | Hospitalist Progress Note ---
Date of Service October 07, 2024 Assessment & Plan (1) Respiratory failure: Plan: Due to MRSA and Legionella pneumonia Bronchial lavage growing MRSA Urine Legionella positive Currently on ceftaroline and azithromycin Consulted infectious disease. Remains intubated May proceed towards tracheostomy (2) COPD (chronic obstructive pulmonary disease) with emphysema: Plan: Budesonide twice daily Solu-medrol (3) Atrial fibrillation: Plan: on amiodarone drip and heparin drip digoxin (4) NAOMY (acute kidney injury): Plan: ATN due to septic shock Creatinine still rising Still oliguric/anuric Tolerated dialysis yesterday. Nephrology involved Patient will likely need a permacath (5) Hypertension: Plan: -losartan on hold 2nd to hypotension (6) Acute hyponatremia: Plan: -Na+ 134 (7) Acute non-ST elevation myocardial infarction (NSTEMI): Plan: Most likely demand ischemia due to hypoxia and tachycardia. (8) Alcohol withdrawal delirium: Plan: Currently on propofol and fentanyl Thiamine and folic acid Plan This is a 64-year-old morbidly obese male with a history of COPD, hypertension who presents with severe respiratory distress, now on BiPAP. Chest x-ray showed pneumonia. He was given DuoNebs, steroids, ceftriaxone in the emergency room. Labs significant for lactic acidosis of 5, anion gap metabolic acidosis, hyponatremia, hypokalemia, elevated troponin, elevated procalcitonin. His blood pressure dropped while in the ER. He is being admitted to the ICU with acute hypoxic respiratory failure, pneumonia with severe sepsis Admission and Anticipated Discharge Date Admission Date: September 29, 2024 Subjective Pt intubated sedated Review of Systems Review of Systems: Intubated, sedated Physical Exam Physical Exam: GENERAL APPEARANCE Intubated EYES lids/conjunctiva normal. EARS/NOSE/THROAT Mucous membranes moist, nares normal, lips/teeth normal uvula midline without oral pharyngeal erythema, exudate or swelling TMs normal bilaterally. No lymphangitis/lymphedema. HEAD/NECK ET tube in placed RESPIRATORY respiratory effort normal, speaks in full sentences, no tripod position, no accessory muscle use. Lungs clear to auscultation without rhonchi, wheezes, rales CARDIAC Regular rate and rhythm, no edema. ABDOMINAL Soft, ND/NT. No evidence of fluid wave. No pulsatile masses on exam, rebound tenderness, Platt sign or pain over Mcburney's point. MUSCLES/EXTREMITIES No abnormal range of motion, no swelling. SKIN Warm, pink and dry. No rashes, dermatoses, petechiae or lesions. NEUROLOGICAL Sedated PSYCH Normal mood and affect. Judgement/competence is appropriate Results & Data Results & Data Vital Signs (Past 12 Hours) Vital Signs Temp Pulse Pulse Resp BP Pulse Ox O2 Del Method 10/07/24 09:30 119 H 110/60 10/07/24 09:00 126 H 145/65 H 10/07/24 08:49 36.8 C 122 H 10/07/24 08:40 108 H 128/67 10/07/24 07:51 127 H 26 H 93 10/07/24 06:30 116 H 24 95 Mechanical Vent 10/07/24 06:12 103 H 24 95 Mechanical Vent 10/07/24 05:30 104 H 24 94 Mechanical Vent 10/07/24 05:03 120 H 26 H 91 Mechanical Vent 10/07/24 04:00 112 H 146/62 H 10/07/24 03:44 112 H 26 H 94 10/07/24 03:00 118 H 26 H 94 Mechanical Vent 10/07/24 03:00 10/07/24 02:00 103 H 27 H 95 Mechanical Vent 10/07/24 01:24 105 H 54 H 87 L Mechanical Vent 10/07/24 00:03 36.9 C 119 H 28 H 93 Mechanical Vent 10/07/24 00:00 125 H 148/67 H 10/07/24 00:00 125 H 10/06/24 23:30 116 H 27 H 94 10/06/24 23:06 105 H 29 H 95 Mechanical Vent 10/06/24 23:00 FiO2 10/07/24 09:30 10/07/24 09:00 10/07/24 08:49 10/07/24 08:40 10/07/24 07:51 60 10/07/24 06:30 60 10/07/24 06:12 60 10/07/24 05:30 60 10/07/24 05:03 60 10/07/24 04:00 10/07/24 03:44 50 10/07/24 03:00 50 10/07/24 03:00 50 10/07/24 02:00 50 10/07/24 01:24 50 10/07/24 00:03 50 10/07/24 00:00 10/07/24 00:00 10/06/24 23:30 50 10/06/24 23:06 50 10/06/24 23:00 50 PG Care Time/CCT Total # of Minutes Spent Total Time Spent with Patient: Total time spent is greater than 50% in coordination of care (as documented) at patient's floor/unit and/or counseling patient: Coding Level of Care Code 53831 SUB INP/OBS CARE 2/35MIN Diagnoses Respiratory failure J96.90 COPD (chronic obstructive pulmonary disease) with emphysema J43.9 Atrial fibrillation I48.91 NAOMY (acute kidney injury) N17.9 Hypertension I10 Acute hyponatremia E87.1 Acute non-ST elevation myocardial infarction (NSTEMI) I21.4 Alcohol withdrawal delirium F10.931
[2024-10-07] MEDS ORDERED: VANCOMYCIN CONSULT ACTIVE PRN (10:37)
[2024-10-07 10:52] LABS: iSTAT Art Bld Gas Base Excess -1.0 meg/L (-9-1.8)
--- NOTE | 2024-10-07 11:39 | Critical Care Progress Note ---
Date of Service October 07, 2024 Assessment & Plan (1) ARDS (adult respiratory distress syndrome): (2) Pneumonia: (3) Pleural effusion: (4) Acute hypoxemic respiratory failure: (5) Thrombocytopenia: (6) Airway intubation performed without difficulty: (7) History of tobacco abuse: (8) Respiratory failure: (9) COPD (chronic obstructive pulmonary disease) with emphysema: (10) Severe sepsis: (11) Acute non-ST elevation myocardial infarction (NSTEMI): (12) Alcohol withdrawal delirium: Plan Impression: 64-year-old male with severe obstructive lung disease at baseline admitted with multifocal pneumonia and hypoxemic respiratory failure with concomitant lactic acidosis. Lactate is improved with IV fluids. He is currently on antibiotics. He was placed on noninvasive positive pressure ventilation admitted to the ICU. Neurologic: CT head and MRI brain without acute findings. History of right cerebellar infarct. On thiamine and folic acid due to the reported history of alcohol abuse. Will try to wean propofol and start Precedex and ketamine. May need to consider paralytics to promote ventilator synchrony. Cardiovascular: 2D echo 09/30/2024: Moderate LV dysfunction, EF 40%, RV not well-visualized. POCUS performed today revealed no evidence of pericardial effusion. LVEF appears to be relatively intact. IVC plump and dilated on POCUS. Repeat echo is pending as a prior echo was a limited study. Follow-up troponins today. Initial troponin is minimally elevated at 24. Initially presented with a type II TX with elevated troponins likely demand ischemia. Holding home an tihypertensives. Patient also with new onset A-fib. Currently on amiodarone drip. Will initiate IV metoprolol versus esmolol if heart rates increased further above 130 persistently. TSH today is 5.99. Discontinue amiodarone given transaminitis and elevated TSH. Initiation of Precedex will also likely help slow heart rate. Maintain MAP above 65 mmHg. Respiratory: Patient essentially with arts with multifocal pneumonia on chest CT. Bronchoscopy results significant for MRSA and Legionella positive PCR. Discussed with ID. Will transition antibiotics to vancomycin, cefepime and Flagyl. Antibiotics broadened out for pseudomonal coverage as today patient had an increase in FiO2 and we are not adequately covering cover Pseudomonas at this period time. Hydrocortisone 50 mg every 6 given intubation status and severe pneumonia. Patient also with a moderate right-sided free-flowing pleural effusion. No signs of loculations. Will continue to monitor and consider thoracentesis. Will first continue with dialysis for volume removal and reassess after dialysis. Patient with a reported history of COPD. GI: LFTs trending upwards today. Possibly related to amiodarone versus congestive hepatopathy versus cholecystitis. Will check a right upper quadrant ultrasound. Lipase elevated to 692. Triglyceride levels normal. Discontinue tube feeds and start low intermittent wall suction with OG tube. Discontinue amnio as noted above. Patient continues to have significant diarrhea. C. difficile 10/06/2024 negative. Will attempt to check a stool BioFire. Diarrhea may be related to ischemic colitis earlier this admission, tube feeds, and pancreatitis. GI consult. Pantoprazole 40 mg twice daily. Check lactate now. KUB upon my review is nonspecific. Low threshold for CT abdomen and pelvis. Renal: Suspect ischemic ATN and cardiorenal failure playing a role. Continues to require hemodialysis. Appreciate nephrology input. Patient profoundly volume overloaded. CK was never checked on admission. Possible rhabdomyolysis. Endocrine: TSH climbing possibly from amiodarone or a euthyroid sick syndrome. Discontinue amiodarone. Consider recheck TSH in the next couple days. Appreciate pharmacy input with assistance of hyperglycemia management. Patient on hydrocortisone 50 mg daily per previous provider. Will transition to 50 every 6 given intubated status and severe pneumonia. ID: Procalcitonin trending down. Continue azithromycin 500 mg daily. Initiate vancomycin. Discontinue ceftaroline. Initiate cefepime for possible pseudomonal infection. Initiate Flagyl for possible aspiration and possible intra-abdominal infection. Heme-onc: No significant issues at present aside from mild anemia. --Prophylaxis VTE: Heparin drip on hold. GI: Pantoprazole Lines: Left IJ, left radial, peripheral, positive De La Torre, right IJ dialysis catheter 10/02/2024 Diet: NPO. OG tube to low intermittent wall suction. I spent 15 minutes reviewing the electronic medical record/relevant imaging, 15 minutes discussing diagnosis and treatment plan with patient/family, and 25 minutes discussing care plan with ancillary staff such as RT/RN/pharmacist/at risk specialist/PT/OT/other consulting medical services. CRITICAL CARE TIME I have personally spent 68 minutes of critical care time in the direct management of this patient. This is a life/limb threatening event. This includes time spent evaluating patient, direct bedside care, chart review, placing orders, interpretation of diagnostic studies, discussion with consultants, patient, and family members, as well as other required patient management activities. This time is exclusive of all separately billable procedures, and teaching time and separate from and in addition to any other critical care service time. Admission and Anticipated Discharge Date Admission Date: September 29, 2024 Subjective Patient seen and examined this morning. Remains on propofol and fentanyl. Minimally responsive to commands. Requiring escalating FiO2 and PEEP on the ventilator. Currently undergoing hemodialysis. Discussed with cattle sticker in multidisciplinary rounds. Patient afebrile. Continues to have A-fib RVR. Review of Systems Review of Systems: Unobtainable due to cognitive status and Unobtainable due to endotracheal tube Physical Exam Physical Exam: Constitutional: No acute distress HEENT: PERRLA Respiratory system: Decreased air entry bilaterally, no wheeze, minimal rhonchi, positive crackles bilaterally CVS: S1-S2 positive, no murmurs or gallops, irregular Abdomen: Soft, nontender, nondistended, positive bowel sounds x4, obese Extremities: + 1 pulses bilaterally radialis/ dorsalis pedis, no cyanosis, positive pitting edema appreciated bilateral lower extremity as well as upper extremity Neuro: Nonfocal on exam, but exam limited due to sedation. Psych: Unable to assess G/U: Positive De La Torre Skin: no rashes, warm and dry Lymphatic: no cervical or axillary lymphadenopathy Results & Data Results & Data Vital Signs (Past 12 Hours) Vital Signs Temp Pulse Pulse Resp BP Pulse Ox O2 Del Method 10/07/24 11:00 127 H 129/68 10/07/24 10:45 115 H 121/63 10/07/24 10:35 125 H 30 H 90 10/07/24 10:30 121 H 115/56 L 10/07/24 10:15 127 H 110/58 L 10/07/24 10:00 122 H 109/57 L 10/07/24 09:30 119 H 110/60 10/07/24 09:00 126 H 145/65 H 10/07/24 08:49 36.8 C 122 H 10/07/24 08:40 108 H 128/67 10/07/24 07:51 127 H 26 H 93 10/07/24 06:30 116 H 24 95 Mechanical Vent 10/07/24 06:12 103 H 24 95 Mechanical Vent 10/07/24 05:30 104 H 24 94 Mechanical Vent 10/07/24 05:03 120 H 26 H 91 Mechanical Vent 10/07/24 04:00 112 H 146/62 H 10/07/24 03:44 112 H 26 H 94 10/07/24 03:00 118 H 26 H 94 Mechanical Vent 10/07/24 03:00 10/07/24 02:00 103 H 27 H 95 Mechanical Vent 10/07/24 01:24 105 H 54 H 87 L Mechanical Vent 10/07/24 00:03 36.9 C 119 H 28 H 93 Mechanical Vent 10/07/24 00:00 125 H 148/67 H 10/07/24 00:00 125 H 10/06/24 23:30 116 H 27 H 94 FiO2 10/07/24 11:00 10/07/24 10:45 10/07/24 10:35 70 10/07/24 10:30 10/07/24 10:15 10/07/24 10:00 10/07/24 09:30 10/07/24 09:00 10/07/24 08:49 10/07/24 08:40 10/07/24 07:51 60 10/07/24 06:30 60 10/07/24 06:12 60 10/07/24 05:30 60 10/07/24 05:03 60 10/07/24 04:00 10/07/24 03:44 50 10/07/24 03:00 50 10/07/24 03:00 50 10/07/24 02:00 50 10/07/24 01:24 50 10/07/24 00:03 50 10/07/24 00:00 10/07/24 00:00 10/06/24 23:30 50 Coding Level of Care Code 08394 CRITICAL CARE 1ST 30-74M Diagnoses ARDS (adult respiratory distress syndrome) J80 Pneumonia J18.9 Pleural effusion J90 Acute hypoxemic respiratory failure J96.01 Thrombocytopenia D69.6 Airway intubation performed without difficulty Z78.9 History of tobacco abuse Z87.891 Respiratory failure J96.90 COPD (chronic obstructive pulmonary disease) with emphysema J43.9 Severe sepsis A41.9; R65.20 Acute non-ST elevation myocardial infarction (NSTEMI) I21.4 Alcohol withdrawal delirium F10.931
[2024-10-07 11:49] LABS: ANTI-Xa, UFH(UnfractionatedHep < 0.10 IU/ml (0.3-0.7)
[2024-10-07 12:36] LABS: Creatine Kinase 68.0 U/L (30-223)
[2024-10-07] MEDS: VECURONIUM BROMIDE 10 MG VIAL IV ONE (12:41)
--- NOTE | 2024-10-07 12:58 | Gastrointestinal Consultation ---
Date of Consultation October 07, 2024 Assessment & Plan (1) Elevated LFTs: 64 year old male w/ history of obesity, COPD, HTN, intracranial hemorrhage and others below admitted 09/29/24 w/ acute respiratory failure, community-acquired PNA, metabolic acidosis/lactic acidosis, Subacute/chronic right cerebellar infarct, ETOH withdrawal, intubated 09/30/24, new onset afib complicated by CHF 10/01/24, acute renal failure w/ HD initiated on 10/02/24 who remains sedated/intubated in the ICU GI was asked to evaluate for elevated LFTs and elevated lipase 1. Elevated LFTs - Etiology DDX discussed including MASH, ETOH use, DILI (amiodarone), sepsis, congestive hepatopathy vs other - Follow liver serology - ABD US appears to be ordered 2. Elevated lipase - ABD US - If clinical course permits, CTAP or MRI 3. Diarrhea - C.diff negative 10/05 - If continued, check stool PCR I spent a total of 60 minutes on the date of service in review of patient's record, and previously obtained information in person and appropriate medical visit, discussion and education of plan, with patient and/or caregiver, placing orders for tests/referral/procedures as medically necessary and documentation of pertinent clinical information in patient's medical records for their visit today. Supervising Physician Co-Signing Physician Notes I saw and examined this patient with our nurse practitioner and agree with her assessment and plan. Elevated lipase could be related to known alcohol use in addition to renal failure which decreases the clearance of lipase. Other contributing factors may include hemodynamic instability less likely drug related. Recommend monitoring his lipase to see if it normalizes. Mild elevation liver enzymes and nonspecific could be related to alcohol use, recent infection, other comorbidities as well as MAFLD. No indication for significant hepatic decompensation. Will continue to monitor labs. Await ultrasound results. History of Present Illness Reason for Consultation: Transaminitis, pancreatitis, shock Requesting Physician: Primitivo Cardona MD Attending Physician: Cornel Gonzalez MD History of Present Illness 64 year old male w/ history of obesity, COPD, HTN, intracranial hemorrhage and others below admitted 09/29/24 w/ acute respiratory failure, community-acquired PNA, metabolic acidosis/lactic acidosis, Subacute/chronic right cerebellar infarct, ETOH withdrawal, intubated 09/30/24, new onset afib complicated by CHF 10/01/24, acute renal failure w/ HD initiated on 10/02/24 who remains sedated/intubated in the ICU - GI was asked to evaluate for elevated LFTs and elevated lipase. Tbili 0.5 AST 81 ALT 121 ALKP 198 Lipase 692 No recent ABD US, CTAP or MRI abdomen imaging. Allergies Allergy/AdvReac Type Severity Reaction Status Date / Time hydrocodone Allergy Unknown hives Verified 12/26/22 16:54 Home Medications Medication Instructions Recorded Confirmed Type nebulizer accessories #1 ea 06/09/22 12/26/22 Rx nebulizers #1 ea 06/09/22 12/26/22 Rx albuterol sulfate 2.5 mg/3 mL 2.5 mg (3 mL) inhalation QID PRN 06/10/22 09/29/24 Rx (0.083 %) solution for nebulization shortness of breath or wheezing #180 mL ipratropium bromide 0.02 % 2.5 ml inhalation QID PRN 06/28/22 09/29/24 Rx solution for inhalation shortness of breath or wheezing #150 mL clobetasol 0.025 % topical cream 1 applic topical DAILY PRN Other 12/26/22 09/29/24 History albuterol sulfate 90 mcg/actuation 2 puff inhalation Q6H PRN 02/01/23 09/29/24 Rx aerosol inhaler shortness of breath or wheezing #18 grams fluticasone fur. 100 mcg-umeclid 1 inh inhalation DAILY #28 ea 01/24/24 09/29/24 Rx 62.5 mcg-vilant 25 mcg inhalat.powder (Trelegy Ellipta) losartan 100 mg tablet 100 mg PO DAILY #14 tabs 01/24/24 09/29/24 Rx Patient History Medical History Acute subdural hematoma Sciatica Surgical History S/P brain surgery S/P wisdom tooth extraction Family History Mother Breast cancer Myocardial infarction Ovarian cancer Father Hodgkin lymphoma Denies family history of Prostate cancer Colorectal cancer Social History Smoking Status: Former smoker Tobacco Type: Cigarettes Age Started Using Tobacco: 17; Age Quit Using Tobacco: 52; packs per day: 1; Second Hand Exposure: No; Do You Dip or Chew Tobacco: No; Hx Alcohol Use: Yes Alcohol type: beer Hx Substance Use: Yes Prescribed Medications: Marijuana Last Used Substance: Unknown Substance Use Type Other:: Patient has medical marijuana card Preferred Language: Lao Communication Ability: Effective Visual Impairment: No Limitations Hearing Ability: Normal Multiple Sclerosis Nurse Required: No Beliefs That Will Affect Care: None marital status: Current Living Situation: Spouse current occupational status: unemployed How many Children do You have: 1 Feels Safe at Home: Yes Childhood Exposure to Second-Hand Smoke: Yes Diet: regular Diet Comment: Regular caffeine: Yes during the past year weight has: remained stable Dental Care, Regularly: No Physical Activity Frequency: 3-4 Times per Week Seatbelt Use: sometimes Sunscreen Use: No Assistive Devices: None Review of Systems Review of Systems: Unobtainable due to endotracheal tube Physical Exam Constitutional: Chronically ill-appearing male, in no acute distress, sedated/intubated in the ICU on hemodialysis Gastrointestinal (Abdomen): Abd is soft, non-distended. No apparent discomfort w/ palpation. Results & Data Vital Signs (Past 12 Hours) Vital Signs Temp Pulse Pulse Resp BP Pulse Ox O2 Del Method 10/07/24 12:00 123 H 112/59 L 10/07/24 11:45 130 H 116/61 10/07/24 11:30 128 H 104/65 10/07/24 11:15 125 H 135/69 10/07/24 11:00 127 H 129/68 10/07/24 10:45 115 H 121/63 10/07/24 10:35 125 H 30 H 90 10/07/24 10:30 121 H 115/56 L 10/07/24 10:15 127 H 110/58 L 10/07/24 10:00 122 H 109/57 L 10/07/24 09:30 119 H 110/60 10/07/24 09:00 126 H 145/65 H 10/07/24 08:49 98.2 F 122 H 10/07/24 08:40 108 H 128/67 10/07/24 08:25 10/07/24 08:00 Mechanical Vent 10/07/24 07:51 127 H 26 H 93 10/07/24 07:00 10/07/24 06:30 116 H 24 95 Mechanical Vent 10/07/24 06:12 103 H 24 95 Mechanical Vent 10/07/24 05:30 104 H 24 94 Mechanical Vent 10/07/24 05:03 120 H 26 H 91 Mechanical Vent 10/07/24 04:00 112 H 146/62 H 10/07/24 03:44 112 H 26 H 94 10/07/24 03:00 118 H 26 H 94 Mechanical Vent 10/07/24 03:00 10/07/24 02:00 103 H 27 H 95 Mechanical Vent 10/07/24 01:24 105 H 54 H 87 L Mechanical Vent O2 Del Method FiO2 10/07/24 12:00 10/07/24 11:45 10/07/24 11:30 10/07/24 11:15 10/07/24 11:00 10/07/24 10:45 10/07/24 10:35 70 10/07/24 10:30 10/07/24 10:15 10/07/24 10:00 10/07/24 09:30 10/07/24 09:00 10/07/24 08:49 10/07/24 08:40 10/07/24 08:25 Nasal CPAP 10/07/24 08:00 10/07/24 07:51 60 10/07/24 07:00 60 10/07/24 06:30 60 10/07/24 06:12 60 10/07/24 05:30 60 10/07/24 05:03 60 10/07/24 04:00 10/07/24 03:44 50 10/07/24 03:00 50 10/07/24 03:00 50 10/07/24 02:00 50 10/07/24 01:24 50 Laboratory Results 10/07/24 10/07/24 10/07/24 Range/Units 12:04 11:54 11:10 WBC (4.8-10.8) K/ul RBC (4.70-6.10) M/uL Hgb (14.0-18.0) g/dl POC Hgb (14.0-18.0) g/dl Hct (42.0-52.0) % POC Hct (42-52) % MCV (80.0-100.0) fL MCH (25.0-34.0) pg MCHC (32.0-36.0) g/dL RDW Std Deviation (36.4-46.3) fL RDW Coeff of Al[place] (11.5-14.5) % Plt Count (130-400) K/uL MPV (9.4-12.4) fL Absolute Nucleated RBC (0.00-0.12) K/uL Nucleated RBC % (auto) % Heparin Anti-Xa, Unfract < 0.10 L (0.3-0.7) IU/ml Specimen Type POC pH (7.35-7.45) POC pCO2 (35-46) mmHg POC pO2 (80-95) mmHg POC HCO3 (19-24) liat/L POC Total CO2 (24-31) mmol/L POC Base Excess (-9-1.8) liat/L POC ABG O2 Sat (90-95) % POC FiO2 % POC Sodium (135-144) mmol/L Sodium (136-145) mmol/L POC Potassium (3.3-5.0) mmol/L Potassium (3.5-5.1) mmol/L Chloride (98-107) mmol/L Carbon Dioxide (21-32) mmol/L Anion Gap (3-11) BUN (6-23) mg/dl Creatinine (0.6-1.4) mg/dl Est Cr Clr Drug Dosing ml/min eGFR BUN/Creatinine Ratio (10-20) Glucose (70-99(Fasting)) mg/dl POC Glucose 105 H (70-99) mg/dl Lactate 0.7 (0.4-2.0) mmol/L Calcium (8.6-10.3) mg/dl Phosphorus (2.5-4.9) mg/dl Magnesium (1.7-2.4) mg/dl Total Bilirubin (0.2-1.0) mg/dl Direct Bilirubin (0-0.2) mg/dl AST (13-39) U/L ALT (7-52) U/L Alkaline Phosphatase (34-104) U/L Total Creatine Kinase 68 (30-223) U/L Troponin I High Sens Pending (0-20) pg/ml Total Protein (6.0-8.3) gm/dl Albumin (3.4-5.0) gm/dl Triglycerides (0-150) mg/dl Lipase (11-82) U/L Procalcitonin (0-0.5) ng/ml TSH (0.300-4.500) uIu/ml Free T4 (0.61-1.60) ng/dl Influenza and RSV (PCR) 10/07/24 10/07/24 10/07/24 Range/Units 10:37 10:17 08:47 WBC (4.8-10.8) K/ul RBC (4.70-6.10) M/uL Hgb (14.0-18.0) g/dl POC Hgb 13.3 L (14.0-18.0) g/dl Hct (42.0-52.0) % POC Hct 39 L (42-52) % MCV (80.0-100.0) fL MCH (25.0-34.0) pg MCHC (32.0-36.0) g/dL RDW Std Deviation (36.4-46.3) fL RDW Coeff of Al[place] (11.5-14.5) % Plt Count (130-400) K/uL MPV (9.4-12.4) fL Absolute Nucleated RBC (0.00-0.12) K/uL Nucleated RBC % (auto) % Heparin Anti-Xa, Unfract (0.3-0.7) IU/ml Specimen Type Arterial POC pH 7.28 L (7.35-7.45) POC pCO2 54 H (35-46) mmHg POC pO2 64 L (80-95) mmHg POC HCO3 25 H (19-24) liat/L POC Total CO2 27 (24-31) mmol/L POC Base Excess -1.0 (-9-1.8) liat/L POC ABG O2 Sat 89.0 L (90-95) % POC FiO2 70 % POC Sodium 135 (135-144) mmol/L Sodium (136-145) mmol/L POC Potassium 3.8 (3.3-5.0) mmol/L Potassium (3.5-5.1) mmol/L Chloride (98-107) mmol/L Carbon Dioxide (21-32) mmol/L Anion Gap (3-11) BUN (6-23) mg/dl Creatinine (0.6-1.4) mg/dl Est Cr Clr Drug Dosing ml/min eGFR BUN/Creatinine Ratio (10-20) Glucose (70-99(Fasting)) mg/dl POC Glucose 106 H (70-99) mg/dl Lactate (0.4-2.0) mmol/L Calcium (8.6-10.3) mg/dl Phosphorus (2.5-4.9) mg/dl Magnesium (1.7-2.4) mg/dl Total Bilirubin (0.2-1.0) mg/dl Direct Bilirubin (0-0.2) mg/dl AST (13-39) U/L ALT (7-52) U/L Alkaline Phosphatase (34-104) U/L Total Creatine Kinase (30-223) U/L Troponin I High Sens 24.2 H (0-20) pg/ml Total Protein (6.0-8.3) gm/dl Albumin (3.4-5.0) gm/dl Triglycerides (0-150) mg/dl Lipase (11-82) U/L Procalcitonin 7.41 H (0-0.5) ng/ml TSH (0.300-4.500) uIu/ml Free T4 (0.61-1.60) ng/dl Influenza and RSV (PCR) 10/07/24 10/07/24 10/07/24 Range/Units 04:09 04:00 00:08 WBC 19.52 H (4.8-10.8) K/ul RBC 3.77 L (4.70-6.10) M/uL Hgb 11.8 L (14.0-18.0) g/dl POC Hgb (14.0-18.0) g/dl Hct 35.7 L (42.0-52.0) % POC Hct (42-52) % MCV 94.7 (80.0-100.0) fL MCH 31.3 (25.0-34.0) pg MCHC 33.1 (32.0-36.0) g/dL RDW Std Deviation 52.8 H (36.4-46.3) fL RDW Coeff of Al[place] 15.2 H (11.5-14.5) % Plt Count 236 (130-400) K/uL MPV 11.9 (9.4-12.4) fL Absolute Nucleated RBC 0.02 (0.00-0.12) K/uL Nucleated RBC % (auto) 0.1 % Heparin Anti-Xa, Unfract 0.27 L (0.3-0.7) IU/ml Specimen Type POC pH (7.35-7.45) POC pCO2 (35-46) mmHg POC pO2 (80-95) mmHg POC HCO3 (19-24) liat/L POC Total CO2 (24-31) mmol/L POC Base Excess (-9-1.8) liat/L POC ABG O2 Sat (90-95) % POC FiO2 % POC Sodium (135-144) mmol/L Sodium 134 L (136-145) mmol/L POC Potassium (3.3-5.0) mmol/L Potassium 4.0 (3.5-5.1) mmol/L Chloride 99 (98-107) mmol/L Carbon Dioxide 23 (21-32) mmol/L Anion Gap 12 H (3-11) BUN 65 H (6-23) mg/dl Creatinine 3.25 H D (0.6-1.4) mg/dl Est Cr Clr Drug Dosing 31.1 ml/min eGFR 20.56 BUN/Creatinine Ratio 20.0 (10-20) Glucose 102 H (70-99(Fasting)) mg/dl POC Glucose 101 H 110 H (70-99) mg/dl Lactate (0.4-2.0) mmol/L Calcium 8.0 L (8.6-10.3) mg/dl Phosphorus 7.4 H (2.5-4.9) mg/dl Magnesium 2.1 (1.7-2.4) mg/dl Total Bilirubin 0.5 (0.2-1.0) mg/dl Direct Bilirubin 0.2 (0-0.2) mg/dl AST 81 H (13-39) U/L ALT 121 H (7-52) U/L Alkaline Phosphatase 198 H (34-104) U/L Total Creatine Kinase (30-223) U/L Troponin I High Sens (0-20) pg/ml Total Protein 5.7 L (6.0-8.3) gm/dl Albumin 2.5 L (3.4-5.0) gm/dl Triglycerides 133 (0-150) mg/dl Lipase 692 H (11-82) U/L Procalcitonin (0-0.5) ng/ml TSH 5.999 H (0.300-4.500) uIu/ml Free T4 0.68 (0.61-1.60) ng/dl Influenza and RSV (PCR) 10/06/24 10/06/24 09/30/24 Range/Units 20:21 16:24 08:45 WBC (4.8-10.8) K/ul RBC (4.70-6.10) M/uL Hgb (14.0-18.0) g/dl POC Hgb (14.0-18.0) g/dl Hct (42.0-52.0) % POC Hct (42-52) % MCV (80.0-100.0) fL MCH (25.0-34.0) pg MCHC (32.0-36.0) g/dL RDW Std Deviation (36.4-46.3) fL RDW Coeff of Al[place] (11.5-14.5) % Plt Count (130-400) K/uL MPV (9.4-12.4) fL Absolute Nucleated RBC (0.00-0.12) K/uL Nucleated RBC % (auto) % Heparin Anti-Xa, Unfract (0.3-0.7) IU/ml Specimen Type POC pH (7.35-7.45) POC pCO2 (35-46) mmHg POC pO2 (80-95) mmHg POC HCO3 (19-24) liat/L POC Total CO2 (24-31) mmol/L POC Base Excess (-9-1.8) liat/L POC ABG O2 Sat (90-95) % POC FiO2 % POC Sodium (135-144) mmol/L Sodium (136-145) mmol/L POC Potassium (3.3-5.0) mmol/L Potassium (3.5-5.1) mmol/L Chloride (98-107) mmol/L Carbon Dioxide (21-32) mmol/L Anion Gap (3-11) BUN (6-23) mg/dl Creatinine (0.6-1.4) mg/dl Est Cr Clr Drug Dosing ml/min eGFR BUN/Creatinine Ratio (10-20) Glucose (70-99(Fasting)) mg/dl POC Glucose 122 H 126 H (70-99) mg/dl Lactate (0.4-2.0) mmol/L Calcium (8.6-10.3) mg/dl Phosphorus (2.5-4.9) mg/dl Magnesium (1.7-2.4) mg/dl Total Bilirubin (0.2-1.0) mg/dl Direct Bilirubin (0-0.2) mg/dl AST (13-39) U/L ALT (7-52) U/L Alkaline Phosphatase (34-104) U/L Total Creatine Kinase (30-223) U/L Troponin I High Sens (0-20) pg/ml Total Protein (6.0-8.3) gm/dl Albumin (3.4-5.0) gm/dl Triglycerides (0-150) mg/dl Lipase (11-82) U/L Procalcitonin (0-0.5) ng/ml TSH (0.300-4.500) uIu/ml Free T4 (0.61-1.60) ng/dl Influenza and RSV (PCR) See Scanned Report PG Care Time/CCT Total # of Minutes Spent Total Time Spent with Patient: Total time spent is greater than 50% in coordination of care (as documented) at patient's floor/unit and/or counseling patient: Coding Level of Care Code 34883 IN/OBS CONSULT LVL 4,60M Diagnoses Elevated LFTs R79.89
[2024-10-07] MEDS: CISATRACURIUM BESYLATE 40 MG in DEXTROSE 5% 80 ML IV SCH (13:18)
[2024-10-07] MEDS: STAT IV Infusion **Titration per Protocol STA ×2 (13:32→13:53)
[2024-10-07] MEDS: MIDAZOLAM HCL 1 MG/ML 2ML VIAL ONE (13:33)
--- NOTE | 2024-10-07 13:36 | XRay Report ---
SINGLE VIEW CHEST CLINICAL HISTORY: Hypoxia. FINDINGS: 2 AP, portable, upright chest radiographs are compared to study performed earlier the same day 10/07/2024 and correlated with chest CT dated 10/06/2024. The examination is degraded by portable t echnique and patient rotation. An endotracheal tube, an enteric tube, and bilateral internal jugular central venous catheters are unchanged in position. The cardiomediastinal silhouette is top normal f or projection. There is a layering right pleural effusion with right basilar consolidation. Atelectas is is noted at the left lung base. No pneumothorax is seen. The bony thorax is grossly intact. IMPRESSION: 1. Stable lines and tubes. 2. A layering right pleural effusion with right basilar consolidation is unchanged from today's [facility] examination. ACT 112: Negative or not required by law. Electronically signed by: Stan Pang M.D. 10/07/2024 1:34 PM
[2024-10-07] MEDS: KETAMINE HCL / NSS 500 MG/500 ML BAG IV SCH (14:01)
--- NOTE | 2024-10-07 14:01 | Procedure Note ---
Procedure Note Date of Service October 07, 2024 PROCEDURE PERFORMED: Flexible fiberoptic bronchoscopy with airway clearance of the bilateral bronchial tree COMPLICATIONS: None. INDICATION: Severe hypoxemia and mucous plugging Consent was obtained from the patient's over the phone. Timeout performed immediately prior to the procedure. Patient was oxygenated on 100% FiO2 and on mechanical ventilation during the procedure. Sedation was continuous with fentanyl and 2 mg of IV Versed. Bronchoscope was inserted via the endotracheal tube. Bilateral tracheobronchial inspection was performed. Diffuse thick yellow and batista secretions noted bilaterally throughout all airways. There is very significant mucous plugging of the right lower lobe and right upper lobe. Secretions were aspirated free with the assistance of saline. The mucous plug from the right lower lobe was sent for culture analysis. Once secretions were adequately aspirated the tracheobronchial tree was cleared out, the scope was then removed. Patient tolerated procedure well. FiO2 and PEEP requirements improved substantially post bronchoscopy. Lung sliding was seen bilaterally with ultrasound in the bilateral apices. Patient's updated at after the procedure. [facility] [place]odes (Charges) Pulmonary/Thoracic Procedure 1: Pulmonary and Thoracic: 76007 Dx bronchoscopy/wash Coding CPT Codes Pulmonary/Thoracic - Pulmonary and Thoracic: 84057 Dx bronchoscopy/wash ([id number]) Additional Codes Date of Service (PG.SURGERY)
[2024-10-07] MEDS: ARTIFICIAL TEARS OP OINT 3.5 GM TUBE OP SCH (14:08)
[2024-10-07] MEDS: VANCOMYCIN HCL 2,500 MG in SODIUM CHLORIDE 0.9% 500 ML IV ONE (14:09)
--- NOTE | 2024-10-07 14:22 | Pharmacy Report ---
Pharmacy PK ABX Note - Date of Service October 07, 2024 - Assessment and Plan Assessment 10/07: Antibiotics broadened from ceftaroline today- Vancomycin/cefepime/flagyl. Patient is intubated/paralyzed, receiving dialysis. Will dose vancomycin by levels. Continues on azithromycin currently ordered through 10/08 for 10 day course. ID following. Additional bronch today. 09/30: * Day #2 of abx. SCr improved, down to 0.74 mg/dL this AM. Procal worsening, 29 ng/mL today. Cultures still pending. * Given improvement in renal function and positive MRSA nasal swab, will empirically increase vancomycin dose today. 09/29: 64 year old M receiving Vancomycin, Azithromycin, and Ceftriaxone for treatment of empiric sepsis likely from a pulmonary source. * Day #1 of antimicrobial therapy. History of COPD and BMI > 40. * Afebrile. No leukocytosis. SCr 1.16 mg/dL today, unknown baseline. Lactate and procalcitonin elevated. * Blood cultures and MRSA nasal swab pending. Plan Vancomycin * 2500 mg x 1 post-dialysis * Will obtain random level with AM labs to assist with dosing. Pharmacy will continue to follow and will adjust dose/frequency as necessary. Thank you.
--- NOTE | 2024-10-07 14:31 | Pharmacy Report ---
Pharmacy Glycemic Short Note 2 - Date of Service October 07, 2024 - Glycemic Short BSG Results (Last 24 hours): 10/06/24 10/06/24 10/07/24 16:24 20:21 00:08 Glucose POC Glucose 126 H 122 H 110 H 10/07/24 10/07/24 10/07/24 04:00 04:09 08:47 Glucose 102 H POC Glucose 101 H 106 H 10/07/24 12:04 Glucose POC Glucose 105 H OUTPATIENT ANTIDIABETIC REGIMEN: * None * HbA1c 5.7% 10/02/24 ASSESSMENT: 10/07: * BSGs [phone] mg/dL yesterday. 106-105 mg/dL today. * Tube feeds held for possible aspiration. Lantus held. * Nimbex drip initiated, requiring phenylephrine. Continue with novolog orders q4 hours for now as BSGs have been in low 100s- transition to insulin infusion should BSGs trend upward. 10/04: * BSGs within goal the last 24h: [phone]/dL. Received 10 units of SQ basal yesterday and 20 units of bolus insulin. * Remains intubated/sedated. Continues on IV hydrocortisone taper and IV antibiotics. Novasource renal at goal. * Continue Lantus 10 units SQ daily and Novolog moderate stress scale q4 for now. 10/03 * Remains on insulin drip this morning. Drip has been infusing at 1.1 units/hr for > 24 hours now. Renal function is still poor. HD done yesterday and again today with goal of removing 3-4 L per nephro. BSGs pretty well controlled for last 24 hours on insulin drip, only a few were above 180 mg/dL. Ultimate goal is to keep all BSGs less than 180 mg/dL while avoiding any hypoglycemia. * Stressors are improving. Norepi and Vasopressin discontinued. Only on phenylephrine at this time with requirements decreasing. Remains on Teflaro. Azithromycin added for urine legionella detection. Steroids have been weaned to q12h. Amio was transitioned to PO to go through NG tube. Tube feeds will be changed to Novasource renal given electrolyte imbalances and HD. * Sales Representative Graphic Art okay with discontinuing the insulin drip at this time. Will provide a one time basal dose of less than 0.1 units/kg. Reassess basal in the AM. Will add q4h Novolog while on tube feeds for the time being. Basing this on weight/stress of 2 for now until we can see how the patient responds to basal and bolus insulin in current state. Will add coverage for tube feeds. 10/02 * HbA1c resulted today and may be consistent with pre-diabetes - suspect hyperglycemia is stress-induced and will resolve as stressors dissipate * Stressors stable from yesterday but remain significant per below. Initiation of HD planned for later today. Discussed w dietitian (Jak) - may consider adjustment of tubefeed formula to a renal formula, which has higher CHO * Insulin drip rate has decreased and is now running at 1.1 units/hr. HD may affect BSG's, and change in tubefeed formulation may also play a role * Continue insulin drip and titrating per protocol. May continue low dose Lantu s, but only if drip rate is greater than 2 units/hr 10/01 * 64 yo M without a known history of diabetes with stress-induced hyperglycemia. Multiple and significant stressors include critical illness, ventilator support, high dose hydrocortisone, septic shock requiring multiple vasopressors, D5W infusions including heparin and amiodarone, plus Peptamen VHP tubefeeds running at a constant 30 mL/hr since ~0200 today * Insulin drip appropriately initiated early today. * Discussed on ICU rounds - keep insulin drip for today due to significant stressors. OK to start very low dose Lantus to help with eventual transition off of the insulin drip (anticipated no earlier than tomorrow). No Novolog to cover tubefeeds since these the tubefeeds are running at a continuous/constant rate and therefore need to titrate drip not anticipated to be high PLAN FOR INPATIENT GLYCEMIC CONTROL: * Basal insulin * held * Bolus insulin * Novolog q4h while on tube feeds - carb coverage added to order for specific rates of Novasource * Goal range: 140 - 180 mg/dL (ultimately want all BSGs between 110 - 180 mg/dL * Correction factor: 1 unit for every 20 mg/dL above goal * Carb ratio: 1 unit for every 7 g/CHO
[2024-10-07] MEDS: BUDESONIDE 0.25 MG/2 ML VIAL (PULMICORT) NEB SCH (14:56)
[2024-10-07 15:21] LABS: iSTAT Art Bld Gas Base Excess -1.0 meg/L (-9-1.8)
[2024-10-07 15:56] LABS: Alanine Aminotransferase 131.0 U/L (7-52); Alkaline Phosphatase 229.0 U/L (34-104); Bilirubin,Total 0.7 mg/dl (0.2-1.0); Iron 31.0 mcg/dl (35-175); Total Protein 6.4 gm/dl (6.0-8.3)
[2024-10-07 16:26] LABS: Hep B Surface Ag with confirm Negative (Negative)
[2024-10-07 16:32] LABS: Hep C Ab Rflx HepCQuant RNA Negative (Negative)
[2024-10-07 16:53] LABS: Ferritin 2293.0 ng/ml (8-388)
[2024-10-07] MEDS: CEFEPIME 1000MG 1,000 MG/10 ML SYR IV SCH (16:58)
[2024-10-07 17:19] LABS: iSTAT Art Bld Gas Base Excess -2.0 meg/L (-9-1.8)
--- NOTE | 2024-10-07 17:50 | XCELERA ---
[id number]
[2024-10-07] MEDS: metroNIDAZOLE 500 MG/100 ML BAG IV SCH (18:21)
[2024-10-07 21:40] LABS: ANTI-Xa, UFH(UnfractionatedHep 0.29 IU/ml (0.3-0.7)
--- NOTE | 2024-10-07 23:32 | Ultrasound Report ---
Exam(s): US LIVER EXAM: US Abdomen Limited CLINICAL HISTORY: Reason for exam: transaminitis, cholecystitis?. TECHNIQUE: Real-time ultrasound of the abdomen with image documentation. COMPARISON: Plain films from 09/30/2024 FINDINGS: Liver: The liver is mildly hyperechoic suggesting fatty infiltration. No focal liver mass lesion is seen. The liver is enlarged measuring 21 cm craniocaudad. Gallbladder: The gallbladder is borderline dilated measuring 10 x 4 cm. No gallstones. No wall thickening or surrounding fluid. Sonographic Platt's sign is negative, however, the patient is sedated. Common bile duct: The common bile duct is upper normal in diameter measuring 7 mm. No choledocholithiasis is seen. Pancreas: The visualized portion of the pancreas is unremarkable. Kidneys: Unremarkable. No stones. No hydronephrosis. The right kidney measures 11.4 x 6.3 cm. Inferior vena cava: The IVC is unremarkable. IMPRESSION: 1. The liver is mildly hyperechoic suggesting fatty infiltration. No focal liver mass lesion is seen. The liver is enlarged measuring 21 cm craniocaudad. 2. The gallbladder is borderline dilated measuring 10 x 4 cm. No gallstones. No wall thickening or surrounding fluid. 3. Sonographic Platt's sign is negative, however, the patient is sedated. Electronically signed by: Mono Villa MD 10/07/24 23:30 PM
[2024-10-08 04:02] LABS: Hematocrit (blood only) 32.8 % (42.0-52.0); Hemoglobin 11.2 g/dl (14.0-18.0); Mean Corpuscular Hemoglobin 32.2 pg (25.0-34.0); Mean Corpuscular Volume 94.3 fL (80.0-100.0); Platelet Count 226 K/uL (130-400); RDW Standard Deviation 50.4 fL (36.4-46.3); Red Blood Count 3.48 M/uL (4.70-6.10); White Blood Count 15.75 K/ul (4.8-10.8)
[2024-10-08 04:04] LABS: ANTI-Xa, UFH(UnfractionatedHep 0.34 IU/ml (0.3-0.7)
[2024-10-08 04:34] LABS: INR 1.0 (0.9-1.1); Prothrombin Time 11.0 Seconds (9.0-12.0)
[2024-10-08 04:48] LABS: ALC (manual) 0.47 K/uL (1.2-3.4); ANC (manual) 13.23 K/uL (1.4-6.5); RBC Morphology Unremarkable
[2024-10-08 04:54] LABS: Alanine Aminotransferase 104.0 U/L (7-52); Alkaline Phosphatase 183.0 U/L (34-104); Anion Gap 12.0 (3-11); Bilirubin,Total 0.5 mg/dl (0.2-1.0); Blood Urea Nitrogen 70.0 mg/dl (6-23); Calcium 8.2 mg/dl (8.6-10.3); Carbon Dioxide 22.0 mmol/L (21-32); Chloride 102.0 mmol/L (98-107); Creatinine Clr Calc Pharmacy 31.8 ml/min; Glucose 135.0 mg/dl (70-99(Fasting)); Lipase 265.0 U/L (11-82); Magnesium 2.3 mg/dl (1.7-2.4); Potassium 5.2 mmol/L (3.5-5.1); Sodium 136.0 mmol/L (136-145); Total Protein 5.8 gm/dl (6.0-8.3)
--- NOTE | 2024-10-08 05:38 | Electrocardiogram Report ---
Test Reason : Blood Pressure : */* mmHG Vent. Rate : 102 BPM Atrial Rate : * BPM P-R Int : * ms QRS Dur : 98 ms QT Int : 300 ms P-R-T Axes : * 67 -19 degrees QTcB Int : 391 ms Atrial fibrillation with rapid ventricular response Nonspecific T wave abnormality Abnormal ECG When compared with ECG of 05-Oct-2024 05:21, No significant change was found Confirmed by Jose Antonio Marquez ([id number]) on 10/08/2024 5:38:09 AM Referred By: REFERRED SELF Confirmed By: Jose Antonio Marquez
--- NOTE | 2024-10-08 05:38 | Electrocardiogram Report ---
Test Reason : Blood Pressure : */* mmHG Vent. Rate : 116 BPM Atrial Rate : * BPM P-R Int : * ms QRS Dur : 92 ms QT Int : 306 ms P-R-T Axes : * 78 95 degrees QTcB Int : 425 ms Atrial fibrillation with rapid ventricular response with premature ventricular or aberrantly conducte d complexes Low voltage QRS Abnormal ECG When compared with ECG of 04-Oct-2024 06:18, No significant change was found Confirmed by Jose Antonio Marquez ([id number]) on 10/08/2024 5:37:43 AM Referred By: REFERRED SELF Confirmed By: Jose Antonio Marquez
[2024-10-08] MEDS ORDERED: SODIUM CHLORIDE 0.9% 1,000 ML IV PRN (07:00)
[2024-10-08] MEDS ORDERED: MIDAZOLAM HCL 1 MG/ML 2ML VIAL IV PRN (08:09)
--- NOTE | 2024-10-08 08:48 | Nephrology Progress Note ---
Date of Service October 08, 2024 Assessment & Plan (1) NAOMY (acute kidney injury): Plan: * NAOMY - c/w ischemic ATN. 1st HD 10/02 * Dialyzed yesterday for 4.5 L UF * Now nonoliguric. Hold HD today. Will provide furosemide and monitor UO. If good response will schedule IV furosemide and monitor BMP, UO. * Serum PO4 is elevated. On renal enteral feeding. Ca-acetate 667 mg BID added 10/06/24. Monitor serum PO4 * Repeat BMP in am (2) Severe sepsis with septic shock: Plan: * Clinically improving. Remains on azithromycin and linezolid. ID following. BAL --> MRSA. Legionella +. (3) Acute hypoxemic respiratory failure: Plan: * Remains ventilator dependent. UF as tolerated. Admission and Anticipated Discharge Date Admission Date: September 29, 2024 Subjective Mr. Moyer was evaluated in the ICU this morning. He received 2.9 L volume yesterday but underwent HD for 4.5 L UF. FiO2 has been reduced to 40%. ICU team performed bronchoscopy this morning to clear mucous plugging. They are actively attempting to wean patient from mechanical ventilation. UO was ~ 1L last shift Review of Systems Review of Systems: Unobtainable due to endotracheal tube Physical Exam Constitutional: + ill appearing Eyes: + anicteric sclerae ENMT: external ear and nose normal, oropharynx normal Neck: trachea midline, no thyromegaly Cardiovascular: Rate/Rhythm: + tachycardic Extremities: + edema (2-3+ dependent edema of the arms and legs) Gastrointestinal (Abdomen): normal bowel sounds, soft, nontender, no hepatosplenomegaly Musculoskeletal: Extremities: no cyanosis and no clubbing Skin: no rashes, warm and dry Results & Data Vital Signs (Past 12 Hours) Vital Signs Temp Pulse Resp BP Pulse Ox O2 Del Method FiO2 10/08/24 08:00 82 24 99 10/08/24 08:00 84 137/90 10/08/24 07:50 79 25 H 94 40 10/08/24 07:45 96 H 24 94 Mechanical Vent 10/08/24 07:30 85 27 H 94 Mechanical Vent 10/08/24 07:21 84 27 H 95 Mechanical Vent 10/08/24 07:00 84 26 H 96 Mechanical Vent 10/08/24 07:00 Mechanical Vent 10/08/24 06:48 89 24 94 Mechanical Vent 40 10/08/24 06:12 86 26 H 95 10/08/24 05:42 81 25 H 94 10/08/24 05:15 92 H 23 95 10/08/24 04:36 83 26 H 94 10/08/24 04:18 36.8 C 80 25 H 94 10/08/24 03:57 78 26 H 95 10/08/24 03:40 81 25 H 93 40 10/08/24 03:39 75 24 94 10/08/24 03:18 87 25 H 93 10/08/24 03:00 80 26 H 93 10/08/24 03:00 40 10/08/24 02:48 83 25 H 93 Mechanical Vent 40 10/08/24 02:21 80 23 92 10/08/24 01:57 26 H 92 10/08/24 01:42 90 24 91 10/08/24 01:18 109 H 24 92 10/08/24 01:03 118 H 27 H 93 10/08/24 00:51 94 H 25 H 95 10/08/24 00:42 107 H 22 95 10/08/24 00:15 37.1 C 111 H 26 H 97 10/08/24 00:00 116 H 10/07/24 23:54 37.1 C 108 H 26 H 97 10/07/24 23:47 90 26 H 96 40 10/07/24 23:15 37.1 C 113 H 25 H 97 10/07/24 23:12 113 H 29 H 97 10/07/24 23:00 40 10/07/24 22:54 111 H 24 94 10/07/24 22:30 118 H 28 H 96 10/07/24 22:27 105 H 24 97 10/07/24 22:03 104 H 24 97 10/07/24 21:45 115 H 28 H 96 10/07/24 21:36 106 H 23 96 10/07/24 21:18 123 H 24 97 Mechanical Vent 40 10/07/24 21:03 108 H 24 96 Laboratory Results Laboratory Results - last 24 hr 09/30/24 10/07/24 10/07/24 08:45 04:09 08:47 WBC RBC Hgb POC Hgb Hct POC Hct MCV MCH MCHC RDW Std Deviation RDW Coeff of [place] Plt Count MPV Absolute Nucleated RBC Nucleated RBC % (auto) Neutrophils % (Manual) Lymphocytes % (Manual) Monocytes % (Manual) Eosinophils % (Manual) Metamyelocytes % (Man) Myelocytes % (Man) Neutrophils # (Manual) Total Absolute Neuts Lymphocytes # (Manual) Total Abs Lymphocytes Monocytes # (Manual) Eosinophils # (Manual) Metamyelocytes # (Man) Myelocytes # (Manual) RBC Morphology PT INR Heparin Anti-Xa, Unfract Specimen Type POC pH POC pCO2 POC pO2 POC HCO3 POC Total CO2 POC Base Excess POC ABG O2 Sat POC FiO2 POC Sodium Sodium POC Potassium Potassium Chloride Carbon Dioxide Anion Gap BUN Creatinine Est Cr Clr Drug Dosing eGFR BUN/Creatinine Ratio Glucose POC Glucose 106 H Lactate Calcium Phosphorus Magnesium Iron Ferritin Total Bilirubin 0.5 Direct Bilirubin 0.2 AST 81 H ALT 121 H Alkaline Phosphatase 198 H Total Creatine Kinase Troponin I High Sens Total Protein 5.7 L Albumin 2.5 L Fpepr-6-Sbcuqsnordn Ceruloplasmin Lipase 692 H Procalcitonin TSH 5.999 H Free T4 0.68 Random Vancomycin KEIRA Screen Anti-Mitochondrial Ab Anti-Smooth Muscle Ab Hepatitis A IgM Ab Hep Bs Antigen Hep B Core IgM Ab Hepatitis C Antibody Influenza and RSV (PCR) See Scanned Report 10/07/24 10/07/24 10/07/24 10:17 10:37 11:10 WBC RBC Hgb POC Hgb 13.3 L Hct POC Hct 39 L MCV MCH MCHC RDW Std Deviation RDW Coeff of [place] Plt Count MPV Absolute Nucleated RBC Nucleated RBC % (auto) Neutrophils % (Manual) Lymphocytes % (Manual) Monocytes % (Manual) Eosinophils % (Manual) Metamyelocytes % (Man) Myelocytes % (Man) Neutrophils # (Manual) Total Absolute Neuts Lymphocytes # (Manual) Total Abs Lymphocytes Monocytes # (Manual) Eosinophils # (Manual) Metamyelocytes # (Man) Myelocytes # (Manual) RBC Morphology PT INR Heparin Anti-Xa, Unfract < 0.10 L Specimen Type Arterial POC pH 7.28 L POC pCO2 54 H POC pO2 64 L POC HCO3 25 H POC Total CO2 27 POC Base Excess -1.0 POC ABG O2 Sat 89.0 L POC FiO2 70 POC Sodium 135 Sodium POC Potassium 3.8 Potassium Chloride Carbon Dioxide Anion Gap BUN Creatinine Est Cr Clr Drug Dosing eGFR BUN/Creatinine Ratio Glucose POC Glucose Lactate Calcium Phosphorus Magnesium Iron Ferritin Total Bilirubin Direct Bilirubin AST ALT Alkaline Phosphatase Total Creatine Kinase Troponin I High Sens 24.2 H Total Protein Albumin Dixnv-[id number]-Odvtflhfdpz Ceruloplasmin Lipase Procalcitonin 7.41 H TSH Free T4 Random Vancomycin KEIRA Screen Anti-Mitochondrial Ab Anti-Smooth Muscle Ab Hepatitis A IgM Ab Hep Bs Antigen Hep B Core IgM Ab Hepatitis C Antibody Influenza and RSV (PCR) 10/07/24 10/07/24 10/07/24 11:54 12:04 15:08 WBC RBC Hgb POC Hgb 13.3 L Hct POC Hct 39 L MCV MCH MCHC RDW Std Deviation RDW Coeff of [place] Plt Count MPV Absolute Nucleated RBC Nucleated RBC % (auto) Neutrophils % (Manual) Lymphocytes % (Manual) Monocytes % (Manual) Eosinophils % (Manual) Metamyelocytes % (Man) Myelocytes % (Man) Neutrophils # (Manual) Total Absolute Neuts Lymphocytes # (Manual) Total Abs Lymphocytes Monocytes # (Manual) Eosinophils # (Manual) Metamyelocytes # (Man) Myelocytes # (Manual) RBC Morphology PT INR Heparin Anti-Xa, Unfract Specimen Type Arterial POC pH 7.25 L POC pCO2 60 H POC pO2 77 L POC HCO3 26 H POC Total CO2 28 POC Base Excess -1.0 POC ABG O2 Sat 92.0 POC FiO2 50 POC Sodium 135 Sodium POC Potassium 4.7 Potassium Chloride Carbon Dioxide Anion Gap BUN Creatinine Est Cr Clr Drug Dosing eGFR BUN/Creatinine Ratio Glucose POC Glucose 105 H Lactate 0.7 Calcium Phosphorus Magnesium Iron Ferritin Total Bilirubin Direct Bilirubin AST ALT Alkaline Phosphatase Total Creatine Kinase 68 Troponin I High Sens 31.9 H Total Protein Albumin Afxsg-5-Wjtjwulylqq Ceruloplasmin Lipase Procalcitonin TSH Free T4 Random Vancomycin KEIRA Screen Anti-Mitochondrial Ab Anti-Smooth Muscle Ab Hepatitis A IgM Ab Hep Bs Antigen Hep B Core IgM Ab Hepatitis C Antibody Influenza and RSV (PCR) 10/07/24 10/07/24 10/07/24 15:26 16:49 17:09 WBC RBC Hgb POC Hgb 12.6 L Hct POC Hct 37 L MCV MCH MCHC RDW Std Deviation RDW Coeff of [place] Plt Count MPV Absolute Nucleated RBC Nucleated RBC % (auto) Neutrophils % (Manual) Lymphocytes % (Manual) Monocytes % (Manual) Eosinophils % (Manual) Metamyelocytes % (Man) Myelocytes % (Man) Neutrophils # (Manual) Total Absolute Neuts Lymphocytes # (Manual) Total Abs Lymphocytes Monocytes # (Manual) Eosinophils # (Manual) Metamyelocytes # (Man) Myelocytes # (Manual) RBC Morphology PT INR Heparin Anti-Xa, Unfract Specimen Type Arterial POC pH 7.32 L POC pCO2 46 POC pO2 68 L POC HCO3 24 POC Total CO2 25 POC Base Excess -2.0 POC ABG O2 Sat 92.0 POC FiO2 50 POC Sodium 134 L Sodium POC Potassium 5.0 Potassium Chloride Carbon Dioxide Anion Gap BUN Creatinine Est Cr Clr Drug Dosing eGFR BUN/Creatinine Ratio Glucose POC Glucose 140 H Lactate Calcium Phosphorus Magnesium Iron 31 L Ferritin 2293.0 H Total Bilirubin 0.7 Direct Bilirubin 0.3 H AST 94 H ALT 131 H Alkaline Phosphatase 229 H Total Creatine Kinase Troponin I High Sens Total Protein 6.4 Albumin 2.8 L Tkgck-7-Kqqjhrtkjiu Pending Ceruloplasmin Pending Lipase Procalcitonin TSH Free T4 Random Vancomycin KEIRA Screen Anti-Mitochondrial Ab Pending Anti-Smooth Muscle Ab Pending Hepatitis A IgM Ab Pending Hep Bs Antigen Negative Hep B Core IgM Ab Pending Hepatitis C Antibody Negative Influenza and RSV (PCR) 10/07/24 10/07/24 10/07/24 20:23 20:49 23:47 WBC RBC Hgb POC Hgb Hct POC Hct MCV MCH MCHC RDW Std Deviation RDW Coeff of [place] Plt Count MPV Absolute Nucleated RBC Nucleated RBC % (auto) Neutrophils % (Manual) Lymphocytes % (Manual) Monocytes % (Manual) Eosinophils % (Manual) Metamyelocytes % (Man) Myelocytes % (Man) Neutrophils # (Manual) Total Absolute Neuts Lymphocytes # (Manual) Total Abs Lymphocytes Monocytes # (Manual) Eosinophils # (Manual) Metamyelocytes # (Man) Myelocytes # (Manual) RBC Morphology PT INR Heparin Anti-Xa, Unfract 0.29 L Specimen Type POC pH POC pCO2 POC pO2 POC HCO3 POC Total CO2 POC Base Excess POC ABG O2 Sat POC FiO2 POC Sodium Sodium POC Potassium Potassium Chloride Carbon Dioxide Anion Gap BUN Creatinine Est Cr Clr Drug Dosing eGFR BUN/Creatinine Ratio Glucose POC Glucose 124 H 118 H Lactate Calcium Phosphorus Magnesium Iron Ferritin Total Bilirubin Direct Bilirubin AST ALT Alkaline Phosphatase Total Creatine Kinase Troponin I High Sens Total Protein Albumin Xrtnl-7-Qkswfeouiaa Ceruloplasmin Lipase Procalcitonin TSH Free T4 Random Vancomycin KEIR[place] Screen Anti-Mitochondrial Ab Anti-Smooth Muscle Ab Hepatitis A IgM Ab Hep Bs Antigen Hep B Core IgM Ab Hepatitis C Antibody Influenza and RSV (PCR) 10/08/24 10/08/24 10/08/24 03:36 03:40 03:41 WBC 15.75 H RBC 3.48 L Hgb 11.2 L POC Hgb Hct 32.8 L POC Hct MCV 94.3 MCH 32.2 MCHC 34.1 RDW Std Deviation 50.4 H RDW Coeff of [place] 14.6 H Plt Count 226 MPV 11.9 Absolute Nucleated RBC 0.02 Nucleated RBC % (auto) 0.1 Neutrophils % (Manual) 84 Lymphocytes % (Manual) 3 Monocytes % (Manual) 7 Eosinophils % (Manual) 1 Metamyelocytes % (Man) 3 Myelocytes % (Man) 2 Neutrophils # (Manual) 13.23 H Total Absolute Neuts 13.23 H Lymphocytes # (Manual) 0.47 L Total Abs Lymphocytes 0.47 L Monocytes # (Manual) 1.10 H Eosinophils # (Manual) 0.16 Metamyelocytes # (Man) 0.47 H Myelocytes # (Manual) 0.32 H RBC Morphology Unremarkable PT 11.0 INR 1.0 Heparin Anti-Xa, Unfract 0.34 Specimen Type POC pH POC pCO2 POC pO2 POC HCO3 POC Total CO2 POC Base Excess POC ABG O2 Sat POC FiO2 POC Sodium Sodium 136 POC Potassium Potassium 5.2 H D Chloride 102 Carbon Dioxide 22 Anion Gap 12 H BUN 70 H Creatinine 3.24 H Est Cr Clr Drug Dosing 31.8 eGFR 20.63 BUN/Creatinine Ratio 21.6 H Glucose 135 H POC Glucose 131 H Lactate Calcium 8.2 L Phosphorus 8.7 H Magnesium 2.3 Iron Ferritin Total Bilirubin 0.5 Direct Bilirubin 0.2 AST 66 H ALT 104 H Alkaline Phosphatase 183 H Total Creatine Kinase Troponin I High Sens Total Protein 5.8 L Albumin 2.4 L Bcmeh-0-Ogirgddrhtb Ceruloplasmin Lipase 265 H Procalcitonin 5.81 H TSH Free T4 Random Vancomycin 23.3 H [place] Screen Pending Anti-Mitochondrial Ab Anti-Smooth Muscle Ab Hepatitis A IgM Ab Hep Bs Antigen Hep B Core IgM Ab Hepatitis C Antibody Influenza and RSV (PCR) 10/08/24 07:31 WBC RBC Hgb POC Hgb Hct POC Hct MCV MCH MCHC RDW Std Deviation RDW Coeff of [place] Plt Count MPV Absolute Nucleated RBC Nucleated RBC % (auto) Neutrophils % (Manual) Lymphocytes % (Manual) Monocytes % (Manual) Eosinophils % (Manual) Metamyelocytes % (Man) Myelocytes % (Man) Neutrophils # (Manual) Total Absolute Neuts Lymphocytes # (Manual) Total Abs Lymphocytes Monocytes # (Manual) Eosinophils # (Manual) Metamyelocytes # (Man) Myelocytes # (Manual) RBC Morphology PT INR Heparin Anti-Xa, Unfract Specimen Type POC pH POC pCO2 POC pO2 POC HCO3 POC Total CO2 POC Base Excess POC ABG O2 Sat POC FiO2 POC Sodium Sodium POC Potassium Potassium Chloride Carbon Dioxide Anion Gap BUN Creatinine Est Cr Clr Drug Dosing eGFR BUN/Creatinine Ratio Glucose POC Glucose 113 H Lactate Calcium Phosphorus Magnesium Iron Ferritin Total Bilirubin Direct Bilirubin AST ALT Alkaline Phosphatase Total Creatine Kinase Troponin I High Sens Total Protein Albumin Riwdd-6-Xulensegsoi Ceruloplasmin Lipase Procalcitonin TSH Free T4 Random Vancomycin KEIR[place] Screen Anti-Mitochondrial Ab Anti-Smooth Muscle Ab Hepatitis A IgM Ab Hep Bs Antigen Hep B Core IgM Ab Hepatitis C Antibody Influenza and RSV (PCR) PG Care Time/CCT Total # of Minutes Spent Total Time Spent with Patient: Total time spent is greater than 50% in coordination of care (as documented) at patient's floor/unit and/or counseling patient: Coding Level of Care Code 94174 SUB INP/OBS CARE 3/50MIN Diagnoses NAOMY (acute kidney injury) N17.9 Severe sepsis with septic shock A41.9; R65.21 Acute hypoxemic respiratory failure J96.01
--- NOTE | 2024-10-08 08:49 | Hospitalist Progress Note ---
Date of Service October 08, 2024 Assessment & Plan (1) Respiratory failure: Plan: Due to MRSA and Legionella pneumonia Bronchial lavage growing MRSA Urine Legionella positive Currently on cefepime, vancomycin, flagyl Consulted infectious disease. Remains intubated bronchoscopy showing significant mucus plugging, cleared out - repeat broncscopy today - attempt at extubation (2) COPD (chronic obstructive pulmonary disease) with emphysema: Plan: Budesonide twice daily Solu-medrol (3) Atrial fibrillation: Plan: -amiodarone d/c'd - heparin drip (4) NAOMY (acute kidney injury): Plan: ATN due to septic shock Creatinine still rising Still oliguric/anuric Tolerated dialysis yesterday. Nephrology involved Patient will likely need a permacath (5) Hypertension: Plan: -losartan on hold 2nd to hypotension (6) Acute hyponatremia: Plan: -Na+ 134 (7) Acute non-ST elevation myocardial infarction (NSTEMI): Plan: Most likely demand ischemia due to hypoxia and tachycardia. (8) Alcohol withdrawal delirium: Plan: Currently on propofol and fentanyl Thiamine and folic acid Plan This is a 64-year-old morbidly obese male with a history of COPD, hypertension who presents with severe respiratory distress, now on BiPAP. Chest x-ray showed pneumonia. He was given DuoNebs, steroids, ceftriaxone in the emergency room. Labs significant for lactic acidosis of 5, anion gap metabolic acidosis, hyponatremia, hypokalemia, elevated troponin, elevated procalcitonin. His blood pressure dropped while in the ER. He is being admitted to the ICU with acute hypoxic respiratory failure, pneumonia with severe sepsis Admission and Anticipated Discharge Date Admission Date: September 29, 2024 Subjective Pt still sedated this am. Awaiting bronchoscopy. Review of Systems Review of Systems: Intubated, sedated Physical Exam Physical Exam: GENERAL APPEARANCE Intubated EYES lids/conjunctiva normal. EARS/NOSE/THROAT Mucous membranes moist, nares normal, lips/teeth normal uvula midline without oral pharyngeal erythema, exudate or swelling TMs normal bilaterally. No lymphangitis/lymphedema. HEAD/NECK ET tube in placed RESPIRATORY respiratory effort normal, speaks in full sentences, no tripod position, no accessory muscle use. Lungs clear to auscultation without rhonchi, wheezes, rales CARDIAC Regular rate and rhythm, no edema. ABDOMINAL Soft, ND/NT. No evidence of fluid wave. No pulsatile masses on exam, rebound tenderness, Platt sign or pain over Mcburney's point. MUSCLES/EXTREMITIES No abnormal range of motion, no swelling. SKIN Warm, pink and dry. No rashes, dermatoses, petechiae or lesions. NEUROLOGICAL Sedated PSYCH Normal mood and affect. Judgement/competence is appropriate Results & Data Results & Data Vital Signs (Past 12 Hours) Vital Signs Temp Pulse Resp BP Pulse Ox O2 Del Method FiO2 10/08/24 08:00 82 24 99 10/08/24 08:00 84 137/90 10/08/24 07:50 79 25 H 94 40 10/08/24 07:45 96 H 24 94 Mechanical Vent 10/08/24 07:30 85 27 H 94 Mechanical Vent 10/08/24 07:21 84 27 H 95 Mechanical Vent 10/08/24 07:00 84 26 H 96 Mechanical Vent 10/08/24 07:00 Mechanical Vent 10/08/24 06:48 89 24 94 Mechanical Vent 40 10/08/24 06:12 86 26 H 95 10/08/24 05:42 81 25 H 94 10/08/24 05:15 92 H 23 95 10/08/24 04:36 83 26 H 94 10/08/24 04:18 36.8 C 80 25 H 94 10/08/24 03:57 78 26 H 95 10/08/24 03:40 81 25 H 93 40 10/08/24 03:39 75 24 94 10/08/24 03:18 87 25 H 93 10/08/24 03:00 80 26 H 93 10/08/24 03:00 40 10/08/24 02:48 83 25 H 93 Mechanical Vent 40 10/08/24 02:21 80 23 92 10/08/24 01:57 26 H 92 10/08/24 01:42 90 24 91 10/08/24 01:18 109 H 24 92 10/08/24 01:03 118 H 27 H 93 10/08/24 00:51 94 H 25 H 95 10/08/24 00:42 107 H 22 95 10/08/24 00:15 37.1 C 111 H 26 H 97 10/08/24 00:00 116 H 10/07/24 23:54 37.1 C 108 H 26 H 97 10/07/24 23:47 90 26 H 96 40 10/07/24 23:15 37.1 C 113 H 25 H 97 10/07/24 23:12 113 H 29 H 97 10/07/24 23:00 40 10/07/24 22:54 111 H 24 94 10/07/24 22:30 118 H 28 H 96 10/07/24 22:27 105 H 24 97 10/07/24 22:03 104 H 24 97 10/07/24 21:45 115 H 28 H 96 10/07/24 21:36 106 H 23 96 10/07/24 21:18 123 H 24 97 Mechanical Vent 40 10/07/24 21:03 108 H 24 96 PG Care Time/CCT Total # of Minutes Spent Total Time Spent with Patient: Total time spent is greater than 50% in coordination of care (as documented) at patient's floor/unit and/or counseling patient: Coding Level of Care Code 20890 SUB INP/OBS CARE 2/35MIN Diagnoses Respiratory failure J96.90 COPD (chronic obstructive pulmonary disease) with emphysema J43.9 Atrial fibrillation I48.91 NAOMY (acute kidney injury) N17.9 Hypertension I10 Acute hyponatremia E87.1 Acute non-ST elevation myocardial infarction (NSTEMI) I21.4 Alcohol withdrawal delirium F10.931
[2024-10-08] MEDS: MIDAZOLAM HCL 5 MG/ML 2ML VIAL ONE (08:54)
[2024-10-08] MEDS ORDERED: Nursing to Pharmacy Communication SCH ×2 (09:00→10:00)
--- NOTE | 2024-10-08 09:00 | Procedure Note ---
Procedure Note Date of Service October 08, 2024 PROCEDURE PERFORMED: Flexible fiberoptic bronchoscopy with airway clearance of the bilateral bronchial tree COMPLICATIONS: None. INDICATION: Severe mucous plugging Consent was obtained from the patient's over the phone. Timeout performed immediately prior to the procedure. Patient was oxygenated on 100% FiO2 and on mechanical ventilation during the procedure. Sedation was continuous with fentanyl, ketamine and precedex. Bronchoscope was inserted via the endotracheal tube. Bilateral tracheobronchial inspection was performed. Diffuse thick yellow and batista secretions noted bilaterally throughout all airways. There again was a very significant amount of mucous plugging of the right lower lobe and right upper lobe. Secretions were aspirated free with the assistance of saline. Once secretions were adequately aspirated, the tracheobronchial tree was cleared out and the scope was then removed. Patient tolerated procedure well. [facility] [place] Procedure Codes (Charges) Pulmonary/Thoracic Procedure 1: Pulmonary and Thoracic: 81093 Dx bronchoscopy/wash Coding CPT Codes Pulmonary/Thoracic - Pulmonary and Thoracic: 14342 Dx bronchoscopy/wash ([id number]) Additional Codes Date of Service ([email or web address])
--- NOTE | 2024-10-08 09:06 | Critical Care Progress Note ---
Date of Service October 08, 2024 Assessment & Plan (1) ARDS (adult respiratory distress syndrome): (2) Pneumonia: (3) Pleural effusion: (4) Acute hypoxemic respiratory failure: (5) Thrombocytopenia: (6) Airway intubation performed without difficulty: (7) History of tobacco abuse: (8) Respiratory failure: (9) COPD (chronic obstructive pulmonary disease) with emphysema: (10) Severe sepsis: (11) Acute non-ST elevation myocardial infarction (NSTEMI): (12) Alcohol withdrawal delirium: (13) MRSA pneumonia: (14) Legionella pneumonia: Plan Impression: 64-year-old male with severe obstructive lung disease at baseline admitted with multifocal pneumonia and hypoxemic respiratory failure with concomitant lactic acidosis. Lactate is improved with IV fluids. He is currently on antibiotics. He was placed on noninvasive positive pressure ventilation admitted to the ICU. Neurologic: CT head and MRI brain without acute findings. History of right cerebellar infarct. On thiamine and folic acid due to the reported history of alcohol abuse. Patient currently on sedation awakening trial and spontaneous breathing trial. If unable to be extubated, will restart Precedex if needed. Continue thiamine 100 mg daily. Consult PT and OT for early mobilization even while intubated due to profound weakness. Cardiovascular: 2D echo 09/30/2024: Moderate LV dysfunction, EF 40%, RV not well-visualized. Repeat echo 10/07/2024 with improved LVEF which was normalized. RV dysfunction noted troponin 10/07/2024 minimally elevated. Initially presented with a type II IN with elevated troponins likely demand ischemia. Holding home antihypertensives. Amiodarone discontinued due to transaminitis and elevation of TSH. Will use metoprolol as needed. Respiratory: Patient with ARDS secondary to Legionella and MRSA pneumonia which is slowly improving. Bronchoscopy results significant for MRSA and Legionella positive PCR. Patient completed 10 days of azithromycin for Legionella. Will complete 14 days of MRSA coverage with a combination of ceftaroline, vancomycin and now Zyvox. Continue cefepime. Follow-up bronchoscopy cultures. Repeat bronchoscopy performed 10/08/2024 and 10/07/2024. Significant mucous plugging noted bilaterally. Hydrocortisone 50 mg every 6 given intubation status and severe pneumonia. Patient also with a moderate right-sided free-flowing pleural effusion. No signs of loculations. Will continue to monitor and consider thoracentesis. Patient with a reported history of COPD. Patient may require tracheostomy in the next 1 to 2 days if unable to be extubated. GI: LFTs and lipase improving. Liver ultrasound 10/07/2024 with fatty liver infiltration. Gallbladder is mildly dilated. No stones noted. Possible acalculous cholecystitis. Alk phos is improving. Pantoprazole 40 mg twice daily. Patient with pancreatitis. Continue n.p.o. status and consider trickle tube feeds tomorrow. Patient with continued diarrhea which appears to be improving. Renal: Suspect ischemic ATN and cardiorenal failure playing a role. CK normal 10/07/2024. Patient undergoing intermittent hemodialysis. 100 mg Lasix ordered by nephrology today. Will follow urine output. Endocrine: TSH climbing possibly from amiodarone or a euthyroid sick syndrome. Discontinue amiodarone. Consider recheck TSH in the next couple days. Appreciate pharmacy input with assistance of hyperglycemia management. Patient on hydrocortisone 50 mg daily per previous provider. Continue hydrocortisone. ID: Procalcitonin trending down. Antibiotics as above. Heme-onc: No significant issues at present aside from mild anemia. --Prophylaxis VTE: Heparin drip on hold. GI: Pantoprazole Lines: Left IJ, left radial, peripheral, positive De La Torre, right IJ dialysis catheter 10/02/2024 Diet: NPO. OG tube to low intermittent wall suction. I spent 15 minutes reviewing the electronic medical record/relevant imaging, 15 minutes discussing diagnosis and treatment plan with patient/family, and 25 minutes discussing care plan with ancillary staff such as RT/RN/pharmacist/instructor adjunct pharmacy technician/PT/OT/other consulting medical services. CRITICAL CARE TIME I have personally spent 64 minutes of critical care time in the direct management of this patient. This is a life/limb threatening event. This includes time spent evaluating patient, direct bedside care, chart review, placing orders, interpretation of diagnostic studies, discussion with consultants, patient, and family members, as well as other required patient management activities. This time is exclusive of all separately billable procedures, and teaching time and separate from and in addition to any other critical care service time. Admission and Anticipated Discharge Date Admission Date: September 29, 2024 Subjective Patient off sedation and on spontaneous breathing trial. He remains profoundly weak, but is able to follow simple commands. No vasopressor requirements at present. Review of Systems Review of Systems: All systems reviewed & are unremarkable except as noted in HPI & below Physical Exam Physical Exam: Constitutional: Patient appears to be of their stated age. Patient is in no apparent distress. Patient is well-developed. Eyes: Pupils are equal round and reactive to light. Conjunctivae are normal. Anicteric sclera. Ears nose, mouth and throat: Endotracheal tube in place size 7.5. Neck: Trachea is midline. Visual inspection is normal. Respiratory: Bilateral rales and crackles. Cardiovascular: Irregular rhythm. Tachycardic. No murmurs. Gastrointestinal: Normal bowel sounds, soft, nontender and nondistended. No hepatosplenomegaly noted. Musculoskeletal: No cyanosis. Patient is able to move all extremities. Strength is 5 out of 5 in the upper and lower extremities. Skin: No rashes, warm dry and intact. Neurologic: Profoundly weak diffusely. Psychiatric: Unable to assess. Skin: no rashes, warm and dry Lymphatic: no cervical or axillary lymphadenopathy Results & Data Results & Data Vital Signs (Past 12 Hours) Vital Signs Temp Pulse Resp BP Pulse Ox Pulse Ox O2 Del Method 10/08/24 09:01 Mechanical Vent 10/08/24 08:25 100 10/08/24 08:00 82 24 99 10/08/24 08:00 84 137/90 10/08/24 07:50 79 25 H 94 10/08/24 07:45 96 H 24 94 Mechanical Vent 10/08/24 07:30 85 27 H 94 Mechanical Vent 10/08/24 07:21 84 27 H 95 Mechanical Vent 10/08/24 07:00 84 26 H 96 Mechanical Vent 10/08/24 07:00 36.8 C 10/08/24 07:00 Mechanical Vent 10/08/24 06:48 89 24 94 Mechanical Vent 10/08/24 06:12 86 26 H 95 10/08/24 05:42 81 25 H 94 10/08/24 05:15 92 H 23 95 10/08/24 04:36 83 26 H 94 10/08/24 04:18 36.8 C 80 25 H 94 10/08/24 03:57 78 26 H 95 10/08/24 03:40 81 25 H 93 10/08/24 03:39 75 24 94 10/08/24 03:18 87 25 H 93 10/08/24 03:00 80 26 H 93 10/08/24 03:00 10/08/24 02:48 83 25 H 93 Mechanical Vent 10/08/24 02:21 80 23 92 10/08/24 01:57 26 H 92 10/08/24 01:42 90 24 91 10/08/24 01:18 109 H 24 92 10/08/24 01:03 118 H 27 H 93 10/08/24 00:51 94 H 25 H 95 10/08/24 00:42 107 H 22 95 10/08/24 00:15 37.1 C 111 H 26 H 97 10/08/24 00:00 116 H 10/07/24 23:54 37.1 C 108 H 26 H 97 10/07/24 23:47 90 26 H 96 10/07/24 23:15 37.1 C 113 H 25 H 97 10/07/24 23:12 113 H 29 H 97 10/07/24 23:00 10/07/24 22:54 111 H 24 94 10/07/24 22:30 118 H 28 H 96 10/07/24 22:27 105 H 24 97 10/07/24 22:03 104 H 24 97 10/07/24 21:45 115 H 28 H 96 10/07/24 21:36 106 H 23 96 10/07/24 21:18 123 H 24 97 Mechanical Vent O2 Del Method FiO2 10/08/24 09:01 10/08/24 08:25 Mechanical Vent 10/08/24 08:00 10/08/24 08:00 10/08/24 07:50 40 10/08/24 07:45 10/08/24 07:30 10/08/24 07:21 10/08/24 07:00 10/08/24 07:00 10/08/24 07:00 10/08/24 06:48 40 10/08/24 06:12 10/08/24 05:42 10/08/24 05:15 10/08/24 04:36 10/08/24 04:18 10/08/24 03:57 10/08/24 03:40 40 10/08/24 03:39 10/08/24 03:18 10/08/24 03:00 10/08/24 03:00 40 10/08/24 02:48 40 10/08/24 02:21 10/08/24 01:57 10/08/24 01:42 10/08/24 01:18 10/08/24 01:03 10/08/24 00:51 10/08/24 00:42 10/08/24 00:15 10/08/24 00:00 10/07/24 23:54 10/07/24 23:47 40 10/07/24 23:15 10/07/24 23:12 10/07/24 23:00 40 10/07/24 22:54 10/07/24 22:30 10/07/24 22:27 10/07/24 22:03 10/07/24 21:45 10/07/24 21:36 10/07/24 21:18 40 Coding Level of Care Code 28313 CRITICAL CARE 1ST 30-74M Diagnoses ARDS (adult respiratory distress syndrome) J80 Pneumonia J18.9 Pleural effusion J90 Acute hypoxemic respiratory failure J96.01 Thrombocytopenia D69.6 Airway intubation performed without difficulty Z78.9 History of tobacco abuse Z87.891 Respiratory failure J96.90 COPD (chronic obstructive pulmonary disease) with emphysema J43.9 Severe sepsis A41.9; R65.20 Acute non-ST elevation myocardial infarction (NSTEMI) I21.4 Alcohol withdrawal delirium F10.931 MRSA pneumonia J15.212 Legionella pneumonia A48.1
--- NOTE | 2024-10-08 09:11 | XRay Report ---
XR chest 1V portable CLINICAL HISTORY: eval post bronch COMPARISON STUDY: 10/07/2024 FINDINGS: Endotracheal tube tip is just below the thoracic inlet. Nasogastric tube tip is off the fie ld of view inferiorly. Bilateral central catheters are stable. Stable mild cardiomegaly with mild pul monary vascular congestion. Stable opacity at the right mid and lower lung with obscuration of the ri ght hemidiaphragm. No pneumothorax seen. IMPRESSION: No pneumothorax seen. Otherwise as described. ACT 112: Negative or not required by law. Electronically signed by: Herman Brush M.D. 10/08/2024 9:10 AM
--- NOTE | 2024-10-08 09:27 | Gastroenterology Progress Note ---
Date of Service October 08, 2024 Assessment & Plan (1) Elevated LFTs: Plan: 64 year old male w/ history of obesity, COPD, HTN, intracranial hemorrhage and others below admitted 09/29/24 w/ acute respiratory failure, community-acquired PNA, metabolic acidosis/lactic acidosis, Subacute/chronic right cerebellar infarct, ETOH withdrawal, intubated 09/30/24, new onset afib complicated by CHF 10/01/24, acute renal failure w/ HD initiated on 10/02/24 who remains sedated/i ntubated in the ICU GI was asked to evaluate for elevated LFTs and elevated lipase. ABD US without acute/obstructive pathology, transaminases downtrending. 1. Elevated LFTs - Improving - Etiology DDX discussed including MASH, ETOH use, DILI (amiodarone), sepsis, congestive hepatopathy vs other - Follow liver serology 3. Diarrhea - C.diff negative 10/05 - If continued, check stool PCR I spent a total of 30 minutes on the date of service in review of patient's record, and previously obtained information in person and appropriate medical visit, discussion and education of plan, with patient and/or caregiver, placing orders for tests/referral/procedures as medically necessary and documentation of pertinent clinical information in patient's medical records for their visit today. Admission and Anticipated Discharge Date Admission Date: September 29, 2024 Supervising Physician Co-Signing Physician Notes I saw and examined this patient with our nurse practitioner and agree with her assessment and plan. Lipase and LFTs improved. No further evaluation needed at this point in light of other more significant acute medical issues. Call if any further GI issues need to be addressed. Subjective Pt remains sedated, intubated. Interval procedures overnight reviewed. Tbili 0.5 AST 81 --> 66 ALT 121 --> 104 ALKP 198 --> 183 Lipase 692 --> 265 ABD US 2024: The liver is mildly hyperechoic suggesting fatty infiltration. No focal liver mass lesion is seen. The liver is enlarged measuring 21 cm craniocaudad. The gallbladder is borderline dilated measuring 10 x 4 cm. No gallstones. No wall thickening or surrounding fluid. Sonographic Platt's sign is negative, however, the patient is sedated. Review of Systems Review of Systems: Unobtainable due to endotracheal tube Physical Exam Gastrointestinal (Abdomen): normal bowel sounds, soft, nontender, no hepatosplenomegaly Results & Data Results & Data Vital Signs (Past 12 Hours) Vital Signs Temp Pulse Resp BP Pulse Ox Pulse Ox O2 Del Method 10/08/24 09:01 Mechanical Vent 10/08/24 08:58 113 H 25 H 95 10/08/24 08:25 100 10/08/24 08:00 82 24 99 10/08/24 08:00 84 137/90 10/08/24 07:50 79 25 H 94 10/08/24 07:45 96 H 24 94 Mechanical Vent 10/08/24 07:30 85 27 H 94 Mechanical Vent 10/08/24 07:21 84 27 H 95 Mechanical Vent 10/08/24 07:00 84 26 H 96 Mechanical Vent 10/08/24 07:00 98.2 F 10/08/24 07:00 Mechanical Vent 10/08/24 06:48 89 24 94 Mechanical Vent 10/08/24 06:12 86 26 H 95 10/08/24 05:42 81 25 H 94 10/08/24 05:15 92 H 23 95 10/08/24 04:36 83 26 H 94 10/08/24 04:18 98.2 F 80 25 H 94 10/08/24 03:57 78 26 H 95 10/08/24 03:40 81 25 H 93 10/08/24 03:39 75 24 94 10/08/24 03:18 87 25 H 93 10/08/24 03:00 80 26 H 93 10/08/24 03:00 10/08/24 02:48 83 25 H 93 Mechanical Vent 10/08/24 02:21 80 23 92 10/08/24 01:57 26 H 92 10/08/24 01:42 90 24 91 10/08/24 01:18 109 H 24 92 10/08/24 01:03 118 H 27 H 93 10/08/24 00:51 94 H 25 H 95 10/08/24 00:42 107 H 22 95 10/08/24 00:15 98.8 F 111 H 26 H 97 10/08/24 00:00 116 H 10/07/24 23:54 98.8 F 108 H 26 H 97 10/07/24 23:47 90 26 H 96 10/07/24 23:15 98.8 F 113 H 25 H 97 10/07/24 23:12 113 H 29 H 97 10/07/24 23:00 10/07/24 22:54 111 H 24 94 10/07/24 22:30 118 H 28 H 96 10/07/24 22:27 105 H 24 97 10/07/24 22:03 104 H 24 97 10/07/24 21:45 115 H 28 H 96 10/07/24 21:36 106 H 23 96 O2 Del Method FiO2 10/08/24 09:01 10/08/24 08:58 40 10/08/24 08:25 Mechanical Vent 10/08/24 08:00 10/08/24 08:00 10/08/24 07:50 40 10/08/24 07:45 10/08/24 07:30 10/08/24 07:21 10/08/24 07:00 10/08/24 07:00 10/08/24 07:00 10/08/24 06:48 40 10/08/24 06:12 10/08/24 05:42 10/08/24 05:15 10/08/24 04:36 10/08/24 04:18 10/08/24 03:57 10/08/24 03:40 40 10/08/24 03:39 10/08/24 03:18 10/08/24 03:00 10/08/24 03:00 40 10/08/24 02:48 40 10/08/24 02:21 10/08/24 01:57 10/08/24 01:42 10/08/24 01:18 10/08/24 01:03 10/08/24 00:51 10/08/24 00:42 10/08/24 00:15 10/08/24 00:00 10/07/24 23:54 10/07/24 23:47 40 10/07/24 23:15 10/07/24 23:12 10/07/24 23:00 40 10/07/24 22:54 10/07/24 22:30 10/07/24 22:27 10/07/24 22:03 10/07/24 21:45 10/07/24 21:36 Laboratory Results 10/08/24 10/08/24 10/08/24 Range/Units 07:31 03:41 03:40 WBC 15.75 H (4.8-10.8) K/ul RBC 3.48 L (4.70-6.10) M/uL Hgb 11.2 L (14.0-18.0) g/dl POC Hgb (14.0-18.0) g/dl Hct 32.8 L (42.0-52.0) % POC Hct (42-52) % MCV 94.3 (80.0-100.0) fL MCH 32.2 (25.0-34.0) pg MCHC 34.1 (32.0-36.0) g/dL RDW Std Deviation 50.4 H (36.4-46.3) fL RDW Coeff of [place] 14.6 H (11.5-14.5) % Plt Count 226 (130-400) K/uL MPV 11.9 (9.4-12.4) fL Absolute Nucleated RBC 0.02 (0.00-0.12) K/uL Nucleated RBC % (auto) 0.1 % Neutrophils % (Manual) 84 % Lymphocytes % (Manual) 3 % Monocytes % (Manual) 7 % Eosinophils % (Manual) 1 % Metamyelocytes % (Man) 3 % Myelocytes % (Man) 2 % Neutrophils # (Manual) 13.23 H (1.40-6.50) K/uL Total Absolute Neuts 13.23 H (1.4-6.5) K/uL Lymphocytes # (Manual) 0.47 L (1.2-3.4) K/uL Total Abs Lymphocytes 0.47 L (1.2-3.4) K/uL Monocytes # (Manual) 1.10 H (0.11-0.59) K/uL Eosinophils # (Manual) 0.16 (0-0.50) K/uL Metamyelocytes # (Man) 0.47 H (0-0) K/uL Myelocytes # (Manual) 0.32 H (0-0) K/uL RBC Morphology Unremarkable PT 11.0 (9.0-12.0) Seconds INR 1.0 (0.9-1.1) Heparin Anti-Xa, Unfract 0.34 (0.3-0.7) IU/ml Specimen Type POC pH (7.35-7.45) POC pCO2 (35-46) mmHg POC pO2 (80-95) mmHg POC HCO3 (19-24) liat/L POC Total CO2 (24-31) mmol/L POC Base Excess (-9-1.8) liat/L POC ABG O2 Sat (90-95) % POC FiO2 % POC Sodium (135-144) mmol/L Sodium 136 (136-145) mmol/L POC Potassium (3.3-5.0) mmol/L Potassium 5.2 H D (3.5-5.1) mmol/L Chloride 102 (98-107) mmol/L Carbon Dioxide 22 (21-32) mmol/L Anion Gap 12 H (3-11) BUN 70 H (6-23) mg/dl Creatinine 3.24 H (0.6-1.4) mg/dl Est Cr Clr Drug Dosing 31.8 ml/min eGFR 20.63 BUN/Creatinine Ratio 21.6 H (10-20) Glucose 135 H (70-99(Fasting)) mg/dl POC Glucose 113 H (70-99) mg/dl Lactate (0.4-2.0) mmol/L Calcium 8.2 L (8.6-10.3) mg/dl Phosphorus 8.7 H (2.5-4.9) mg/dl Magnesium 2.3 (1.7-2.4) mg/dl Iron (35-175) mcg/dl Ferritin (8-388) ng/ml Total Bilirubin 0.5 (0.2-1.0) mg/dl Direct Bilirubin 0.2 (0-0.2) mg/dl AST 66 H (13-39) U/L ALT 104 H (7-52) U/L Alkaline Phosphatase 183 H (34-104) U/L Total Creatine Kinase (30-223) U/L Troponin I High Sens (0-20) pg/ml Total Protein 5.8 L (6.0-8.3) gm/dl Albumin 2.4 L (3.4-5.0) gm/dl Jmtpu-4-Jhxnhqxtsyg Ceruloplasmin Lipase 265 H (11-82) U/L Procalcitonin 5.81 H (0-0.5) ng/ml TSH (0.300-4.500) uIu/ml Free T4 (0.61-1.60) ng/dl Random Vancomycin 23.3 H (10-20) mcg/ml [facility] Screen Pending Anti-Mitochondrial Ab Anti-Smooth Muscle Ab Hepatitis A IgM Ab Hep Bs Antigen (Negative) Hep B Core IgM Ab Hepatitis C Antibody (Negative) 10/08/24 10/07/24 10/07/24 Range/Units 03:36 23:47 20:49 WBC (4.8-10.8) K/ul RBC (4.70-6.10) M/uL Hgb (14.0-18.0) g/dl POC Hgb (14.0-18.0) g/dl Hct (42.0-52.0) % POC Hct (42-52) % MCV (80.0-100.0) fL MCH (25.0-34.0) pg MCHC (32.0-36.0) g/dL RDW Std Deviation (36.4-46.3) fL RDW Coeff of [place] (11.5-14.5) % Plt Count (130-400) K/uL MPV (9.4-12.4) fL Absolute Nucleated RBC (0.00-0.12) K/uL Nucleated RBC % (auto) % Neutrophils % (Manual) % Lymphocytes % (Manual) % Monocytes % (Manual) % Eosinophils % (Manual) % Metamyelocytes % (Man) % Myelocytes % (Man) % Neutrophils # (Manual) (1.40-6.50) K/uL Total Absolute Neuts (1.4-6.5) K/uL Lymphocytes # (Manual) (1.2-3.4) K/uL Total Abs Lymphocytes (1.2-3.4) K/uL Monocytes # (Manual) (0.11-0.59) K/uL Eosinophils # (Manual) (0-0.50) K/uL Metamyelocytes # (Man) (0-0) K/uL Myelocytes # (Manual) (0-0) K/uL RBC Morphology PT (9.0-12.0) Seconds INR (0.9-1.1) Heparin Anti-Xa, Unfract 0.29 L (0.3-0.7) IU/ml Specimen Type POC pH (7.35-7.45) POC pCO2 (35-46) mmHg POC pO2 (80-95) mmHg POC HCO3 (19-24) liat/L POC Total CO2 (24-31) mmol/L POC Base Excess (-9-1.8) liat/L POC ABG O2 Sat (90-95) % POC FiO2 % POC Sodium (135-144) mmol/L Sodium (136-145) mmol/L POC Potassium (3.3-5.0) mmol/L Potassium (3.5-5.1) mmol/L Chloride (98-107) mmol/L Carbon Dioxide (21-32) mmol/L Anion Gap (3-11) BUN (6-23) mg/dl Creatinine (0.6-1.4) mg/dl Est Cr Clr Drug Dosing ml/min eGFR BUN/Creatinine Ratio (10-20) Glucose (70-99(Fasting)) mg/dl POC Glucose 131 H 118 H (70-99) mg/dl Lactate (0.4-2.0) mmol/L Calcium (8.6-10.3) mg/dl Phosphorus (2.5-4.9) mg/dl Magnesium (1.7-2.4) mg/dl Iron (35-175) mcg/dl Ferritin (8-388) ng/ml Total Bilirubin (0.2-1.0) mg/dl Direct Bilirubin (0-0.2) mg/dl AST (13-39) U/L ALT (7-52) U/L Alkaline Phosphatase (34-104) U/L Total Creatine Kinase (30-223) U/L Troponin I High Sens (0-20) pg/ml Total Protein (6.0-8.3) gm/dl Albumin (3.4-5.0) gm/dl [id number]-4-Ggkcoezswhd Ceruloplasmin Lipase (11-82) U/L Procalcitonin (0-0.5) ng/ml TSH (0.300-4.500) uIu/ml Free T4 (0.61-1.60) ng/dl Random Vancomycin (10-20) mcg/ml [facility] Screen Anti-Mitochondrial Ab Anti-Smooth Muscle Ab Hepatitis A IgM Ab Hep Bs Antigen (Negative) Hep B Core IgM Ab Hepatitis C Antibody (Negative) 10/07/24 10/07/24 10/07/24 Range/Units 20:23 17:09 16:49 WBC (4.8-10.8) K/ul RBC (4.70-6.10) M/uL Hgb (14.0-18.0) g/dl POC Hgb 12.6 L (14.0-18.0) g/dl Hct (42.0-52.0) % POC Hct 37 L (42-52) % MCV (80.0-100.0) fL MCH (25.0-34.0) pg MCHC (32.0-36.0) g/dL RDW Std Deviation (36.4-46.3) fL RDW Coeff of [place] (11.5-14.5) % Plt Count (130-400) K/uL MPV (9.4-12.4) fL Absolute Nucleated RBC (0.00-0.12) K/uL Nucleated RBC % (auto) % Neutrophils % (Manual) % Lymphocytes % (Manual) % Monocytes % (Manual) % Eosinophils % (Manual) % Metamyelocytes % (Man) % Myelocytes % (Man) % Neutrophils # (Manual) (1.40-6.50) K/uL Total Absolute Neuts (1.4-6.5) K/uL Lymphocytes # (Manual) (1.2-3.4) K/uL Total Abs Lymphocytes (1.2-3.4) K/uL Monocytes # (Manual) (0.11-0.59) K/uL Eosinophils # (Manual) (0-0.50) K/uL Metamyelocytes # (Man) (0-0) K/uL Myelocytes # (Manual) (0-0) K/uL RBC Morphology PT (9.0-12.0) Seconds INR (0.9-1.1) Heparin Anti-Xa, Unfract (0.3-0.7) IU/ml Specimen Type Arterial POC pH 7.32 L (7.35-7.45) POC pCO2 46 (35-46) mmHg POC pO2 68 L (80-95) mmHg POC HCO3 24 (19-24) liat/L POC Total CO2 25 (24-31) mmol/L POC Base Excess -2.0 (-9-1.8) liat/L POC ABG O2 Sat 92.0 (90-95) % POC FiO2 50 % POC Sodium 134 L (135-144) mmol/L Sodium (136-145) mmol/L POC Potassium 5.0 (3.3-5.0) mmol/L Potassium (3.5-5.1) mmol/L Chloride (98-107) mmol/L Carbon Dioxide (21-32) mmol/L Anion Gap (3-11) BUN (6-23) mg/dl Creatinine (0.6-1.4) mg/dl Est Cr Clr Drug Dosing ml/min eGFR BUN/Creatinine Ratio (10-20) Glucose (70-99(Fasting)) mg/dl POC Glucose 124 H 140 H (70-99) mg/dl Lactate (0.4-2.0) mmol/L Calcium (8.6-10.3) mg/dl Phosphorus (2.5-4.9) mg/dl Magnesium (1.7-2.4) mg/dl Iron (35-175) mcg/dl Ferritin (8-388) ng/ml Total Bilirubin (0.2-1.0) mg/dl Direct Bilirubin (0-0.2) mg/dl AST (13-39) U/L ALT (7-52) U/L Alkaline Phosphatase (34-104) U/L Total Creatine Kinase (30-223) U/L Troponin I High Sens (0-20) pg/ml Total Protein (6.0-8.3) gm/dl Albumin (3.4-5.0) gm/dl Zosvc-1-Tbpimkxpuui Ceruloplasmin Lipase (11-82) U/L Procalcitonin (0-0.5) ng/ml TSH (0.300-4.500) uIu/ml Free T4 (0.61-1.60) ng/dl Random Vancomycin (10-20) mcg/ml [facility] Screen Anti-Mitochondrial Ab Anti-Smooth Muscle Ab Hepatitis A IgM Ab Hep Bs Antigen (Negative) Hep B Core IgM Ab Hepatitis C Antibody (Negative) 10/07/24 10/07/24 10/07/24 Range/Units 15:26 15:08 12:04 WBC (4.8-10.8) K/ul RBC (4.70-6.10) M/uL Hgb (14.0-18.0) g/dl POC Hgb 13.3 L (14.0-18.0) g/dl Hct (42.0-52.0) % POC Hct 39 L (42-52) % MCV (80.0-100.0) fL MCH (25.0-34.0) pg MCHC (32.0-36.0) g/dL RDW Std Deviation (36.4-46.3) fL RDW Coeff of [place] (11.5-14.5) % Plt Count (130-400) K/uL MPV (9.4-12.4) fL Absolute Nucleated RBC (0.00-0.12) K/uL Nucleated RBC % (auto) % Neutrophils % (Manual) % Lymphocytes % (Manual) % Monocytes % (Manual) % Eosinophils % (Manual) % Metamyelocytes % (Man) % Myelocytes % (Man) % Neutrophils # (Manual) (1.40-6.50) K/uL Total Absolute Neuts (1.4-6.5) K/uL Lymphocytes # (Manual) (1.2-3.4) K/uL Total Abs Lymphocytes (1.2-3.4) K/uL Monocytes # (Manual) (0.11-0.59) K/uL Eosinophils # (Manual) (0-0.50) K/uL Metamyelocytes # (Man) (0-0) K/uL Myelocytes # (Manual) (0-0) K/uL RBC Morphology PT (9.0-12.0) Seconds INR (0.9-1.1) Heparin Anti-Xa, Unfract (0.3-0.7) IU/ml Specimen Type Arterial POC pH 7.25 L (7.35-7.45) POC pCO2 60 H (35-46) mmHg POC pO2 77 L (80-95) mmHg POC HCO3 26 H (19-24) liat/L POC Total CO2 28 (24-31) mmol/L POC Base Excess -1.0 (-9-1.8) liat/L POC ABG O2 Sat 92.0 (90-95) % POC FiO2 50 % POC Sodium 135 (135-144) mmol/L Sodium (136-145) mmol/L POC Potassium 4.7 (3.3-5.0) mmol/L Potassium (3.5-5.1) mmol/L Chloride (98-107) mmol/L Carbon Dioxide (21-32) mmol/L Anion Gap (3-11) BUN (6-23) mg/dl Creatinine (0.6-1.4) mg/dl Est Cr Clr Drug Dosing ml/min eGFR BUN/Creatinine Ratio (10-20) Glucose (70-99(Fasting)) mg/dl POC Glucose 105 H (70-99) mg/dl Lactate (0.4-2.0) mmol/L Calcium (8.6-10.3) mg/dl Phosphorus (2.5-4.9) mg/dl Magnesium (1.7-2.4) mg/dl Iron 31 L (35-175) mcg/dl Ferritin 2293.0 H (8-388) ng/ml Total Bilirubin 0.7 (0.2-1.0) mg/dl Direct Bilirubin 0.3 H (0-0.2) mg/dl AST 94 H (13-39) U/L ALT 131 H (7-52) U/L Alkaline Phosphatase 229 H (34-104) U/L Total Creatine Kinase (30-223) U/L Troponin I High Sens (0-20) pg/ml Total Protein 6.4 (6.0-8.3) gm/dl Albumin 2.8 L (3.4-5.0) gm/dl Iacfr-2-Tkgscmvyopz Pending Ceruloplasmin Pending Lipase (11-82) U/L Procalcitonin (0-0.5) ng/ml TSH (0.300-4.500) uIu/ml Free T4 (0.61-1.60) ng/dl Random Vancomycin (10-20) mcg/ml [facility] Screen Anti-Mitochondrial Ab Pending Anti-Smooth Muscle Ab Pending Hepatitis A IgM Ab Pending Hep Bs Antigen Negative (Negative) Hep B Core IgM Ab Pending Hepatitis C Antibody Negative (Negative) 10/07/24 10/07/24 10/07/24 Range/Units 11:54 11:10 10:37 WBC (4.8-10.8) K/ul RBC (4.70-6.10) M/uL Hgb (14.0-18.0) g/dl POC Hgb 13.3 L (14.0-18.0) g/dl Hct (42.0-52.0) % POC Hct 39 L (42-52) % MCV (80.0-100.0) fL MCH (25.0-34.0) pg MCHC (32.0-36.0) g/dL RDW Std Deviation (36.4-46.3) fL RDW Coeff of [place] (11.5-14.5) % Plt Count (130-400) K/uL MPV (9.4-12.4) fL Absolute Nucleated RBC (0.00-0.12) K/uL Nucleated RBC % (auto) % Neutrophils % (Manual) % Lymphocytes % (Manual) % Monocytes % (Manual) % Eosinophils % (Manual) % Metamyelocytes % (Man) % Myelocytes % (Man) % Neutrophils # (Manual) (1.40-6.50) K/uL Total Absolute Neuts (1.4-6.5) K/uL Lymphocytes # (Manual) (1.2-3.4) K/uL Total Abs Lymphocytes (1.2-3.4) K/uL Monocytes # (Manual) (0.11-0.59) K/uL Eosinophils # (Manual) (0-0.50) K/uL Metamyelocytes # (Man) (0-0) K/uL Myelocytes # (Manual) (0-0) K/uL RBC Morphology PT (9.0-12.0) Seconds INR (0.9-1.1) Heparin Anti-Xa, Unfract < 0.10 L (0.3-0.7) IU/ml Specimen Type Arterial POC pH 7.28 L (7.35-7.45) POC pCO2 54 H (35-46) mmHg POC pO2 64 L (80-95) mmHg POC HCO3 25 H (19-24) liat/L POC Total CO2 27 (24-31) mmol/L POC Base Excess -1.0 (-9-1.8) liat/L POC ABG O2 Sat 89.0 L (90-95) % POC FiO2 70 % POC Sodium 135 (135-144) mmol/L Sodium (136-145) mmol/L POC Potassium 3.8 (3.3-5.0) mmol/L Potassium (3.5-5.1) mmol/L Chloride (98-107) mmol/L Carbon Dioxide (21-32) mmol/L Anion Gap (3-11) BUN (6-23) mg/dl Creatinine (0.6-1.4) mg/dl Est Cr Clr Drug Dosing ml/min eGFR BUN/Creatinine Ratio (10-20) Glucose (70-99(Fasting)) mg/dl POC Glucose (70-99) mg/dl Lactate 0.7 (0.4-2.0) mmol/L Calcium (8.6-10.3) mg/dl Phosphorus (2.5-4.9) mg/dl Magnesium (1.7-2.4) mg/dl Iron (35-175) mcg/dl Ferritin (8-388) ng/ml Total Bilirubin (0.2-1.0) mg/dl Direct Bilirubin (0-0.2) mg/dl AST (13-39) U/L ALT (7-52) U/L Alkaline Phosphatase (34-104) U/L Total Creatine Kinase 68 (30-223) U/L Troponin I High Sens 31.9 H (0-20) pg/ml Total Protein (6.0-8.3) gm/dl Albumin (3.4-5.0) gm/dl Urqph-5-Fziihzekvfd Ceruloplasmin Lipase (11-82) U/L Procalcitonin (0-0.5) ng/ml TSH (0.300-4.500) uIu/ml Free T4 (0.61-1.60) ng/dl Random Vancomycin (10-20) mcg/ml [facility] Screen Anti-Mitochondrial Ab Anti-Smooth Muscle Ab Hepatitis A IgM Ab Hep Bs Antigen (Negative) Hep B Core IgM Ab Hepatitis C Antibody (Negative) 10/07/24 10/07/24 Range/Units 10:17 04:09 WBC (4.8-10.8) K/ul RBC (4.70-6.10) M/uL Hgb (14.0-18.0) g/dl POC Hgb (14.0-18.0) g/dl Hct (42.0-52.0) % POC Hct (42-52) % MCV (80.0-100.0) fL MCH (25.0-34.0) pg MCHC (32.0-36.0) g/dL RDW Std Deviation (36.4-46.3) fL RDW Coeff of [place] (11.5-14.5) % Plt Count (130-400) K/uL MPV (9.4-12.4) fL Absolute Nucleated RBC (0.00-0.12) K/uL Nucleated RBC % (auto) % Neutrophils % (Manual) % Lymphocytes % (Manual) % Monocytes % (Manual) % Eosinophils % (Manual) % Metamyelocytes % (Man) % Myelocytes % (Man) % Neutrophils # (Manual) (1.40-6.50) K/uL Total Absolute Neuts (1.4-6.5) K/uL Lymphocytes # (Manual) (1.2-3.4) K/uL Total Abs Lymphocytes (1.2-3.4) K/uL Monocytes # (Manual) (0.11-0.59) K/uL Eosinophils # (Manual) (0-0.50) K/uL Metamyelocytes # (Man) (0-0) K/uL Myelocytes # (Manual) (0-0) K/uL RBC Morphology PT (9.0-12.0) Seconds INR (0.9-1.1) Heparin Anti-Xa, Unfract (0.3-0.7) IU/ml Specimen Type POC pH (7.35-7.45) POC pCO2 (35-46) mmHg POC pO2 (80-95) mmHg POC HCO3 (19-24) liat/L POC Total CO2 (24-31) mmol/L POC Base Excess (-9-1.8) liat/L POC ABG O2 Sat (90-95) % POC FiO2 % POC Sodium (135-144) mmol/L Sodium (136-145) mmol/L POC Potassium (3.3-5.0) mmol/L Potassium (3.5-5.1) mmol/L Chloride (98-107) mmol/L Carbon Dioxide (21-32) mmol/L Anion Gap (3-11) BUN (6-23) mg/dl Creatinine (0.6-1.4) mg/dl Est Cr Clr Drug Dosing ml/min eGFR BUN/Creatinine Ratio (10-20) Glucose (70-99(Fasting)) mg/dl POC Glucose (70-99) mg/dl Lactate (0.4-2.0) mmol/L Calcium (8.6-10.3) mg/dl Phosphorus (2.5-4.9) mg/dl Magnesium (1.7-2.4) mg/dl Iron (35-175) mcg/dl Ferritin (8-388) ng/ml Total Bilirubin 0.5 (0.2-1.0) mg/dl Direct Bilirubin 0.2 (0-0.2) mg/dl AST 81 H (13-39) U/L ALT 121 H (7-52) U/L Alkaline Phosphatase 198 H (34-104) U/L Total Creatine Kinase (30-223) U/L Troponin I High Sens 24.2 H (0-20) pg/ml Total Protein 5.7 L (6.0-8.3) gm/dl Albumin 2.5 L (3.4-5.0) gm/dl Ofvds-0-[id number] Ceruloplasmin Lipase 692 H (11-82) U/L Procalcitonin 7.41 H (0-0.5) ng/ml TSH 5.999 H (0.300-4.500) uIu/ml Free T4 0.68 (0.61-1.60) ng/dl Random Vancomycin (10-20) mcg/ml [facility] Screen Anti-Mitochondrial Ab Anti-Smooth Muscle Ab Hepatitis A IgM Ab Hep Bs Antigen (Negative) Hep B Core IgM Ab Hepatitis C Antibody (Negative) PG Care Time/CCT Total # of Minutes Spent Total Time Spent with Patient: Total time spent is greater than 50% in coordination of care (as documented) at patient's floor/unit and/or counseling patient: Coding Level of Care Code 71097 SUB INP/OBS CARE 04/06MIN Diagnoses Elevated LFTs R79.89
[2024-10-08] MEDS: FUROSEMIDE 40 MG/4 ML VIAL IV ONE ×2 (10:03→10:55)
--- NOTE | 2024-10-08 11:15 | Infectious Disease Progress Nt ---
Date of Service October 08, 2024 Assessment & Plan (1) Pneumonia: (2) Acute hypoxemic respiratory failure: (3) NAOMY (acute kidney injury): Plan Problems: #MRSA and Legionella pneumonia #Acute hypoxic respiratory failure s/p intubation 09/30 #NAOMY Micro: 10/07 RLL BAL cx: scant normal anne, final report to follow 10/05 BCx x2: NGTD 10/05 C diff neg 10/02 R main stem BAL Bronchial cx: NG. GS no org Fungal cx: NGTD AFB smear neg, cx pending Legionella PCR: pending 09/30 RML BAL Bronchial cx: MRSA Fungal cx: NGTD AFB smear neg, cx NGTD Histo/Blasto PCR: neg Cocci PCR: neg Legionella PCR: positive Flu, RSV PCR: pending 09/29 Sputum cx: moderate normal anne 09/29 MRSA nares: positive 09/29 BCx x2: NGTD 09/29 Urine Legionella Ag: detected Abx: Azithro 09/29 - present Cefepime 10/07 - present Metronidazole 10/07 - present Vanc 09/29 - 10/01, 10/07 - present Ceftaroline 10/01 - 10/01 Pip-tazo 10/01 - 10/02 Ceftriaxone 09/29 - 09/30 64 yo M with COPD, HTN who presented on 09/29 with shortness of breath, admitted with AHRF, MRSA and Legionella pneumonia. On presentation, he was afebrile, HR 165, BP 116/89 (later dropped as low as 88/64), RR 34, requiring BiPAP. Labs showed WBC 10.41, plt 121, Na 124, K 2.3, Cr 1.16, AST 86, Tbili 1.2, lactate 5.4, procal 4.49. CTA chest with no PE, and RUL and RML pneumonia. He was started on vanc, ceftriaxone, azithromycin, solumedrol and admitted to the ICU. He was intubated on 09/30 due to respiratory failure. A bronchoscopy was performed, which showed a moderate amount of brown-red secretions in the R main which was suctioned out. RML BAL cx grew MRSA, and BAL Legionella PCR positive. Urine Legionella Ag returned positive. Overnight on 10/01, pt went into afib with RVR, required norepi, vasopressin, phenylephrine. Was persistently febrile. WBC increased to 19.28. Ceftriaxone was changed to Zosyn. Vanc was changed to ceftaroline. Kidney function worsening, with Cr up to 3.15 on 10/02. On phenylephrine and vasopressin. Repeat bronchoscopy done 10/02, which showed moderate amount of clear brown secretions in the R main going into the RLL. 10/02 BAL culture NGTD. Respiratory status worsening 10/07, so repeat bronchoscopy done which showed diffuse thick yellow and batista secretions bilaterally, significant mucous plugging of RLL and RUL. Ceftaroline changed to vanc, cefepime, metronidazole due to concern for VAP. Also continued on azithro for Legionella. 10/07 BAL cx with scant normal anne thus far. Recommendations: - Continue azithromycin 500 mg IV q24h for Legionella pneumonia - Ok to switch vanc to linezolid. Can continue cefepime, metronidazole for now and follow-up 10/07 BAL culture Will continue to follow Admission and Anticipated Discharge Date Admission Date: September 29, 2024 Subjective This patient recommendation is based on a telemedicine consult request which was completed asynchronously through chart review and information provided by the primary physician. The patient was not seen or examined today. The evaluation is consultative in nature and all patient care and treatment decisions can either be accepted or rejected by the patient's primary hospital-based treating physician using their own independent medical judgment for their patient. Time Spent Reviewing Chart: 11 - 20 minutes WBC 19.52 --> 15.75 Bronch yesterday with diffuse thick yellow and batista secretions bilaterally, significant mucous plugging of RLL and RUL. BAL cx with scant normal anne thus far Results & Data Vital Signs (Past 12 Hours) Vital Signs Temp Pulse Resp BP Pulse Ox Pulse Ox O2 Del Method 10/08/24 10:36 123 H 18 94 Mechanical Vent 10/08/24 10:09 112 H 21 93 Mechanical Vent 10/08/24 09:48 130 H 23 93 Mechanical Vent 10/08/24 09:36 123 H 26 H 93 Mechanical Vent 10/08/24 09:01 Mechanical Vent 10/08/24 09:00 116 H 29 H 94 Mechanical Vent 10/08/24 08:58 113 H 25 H 95 10/08/24 08:48 75 28 H 96 Mechanical Vent 10/08/24 08:39 107 H 21 100 Mechanical Vent 07/29/25 08:25 100 10/08/24 08:21 85 24 99 Mechanical Vent 10/08/24 08:00 82 24 99 10/08/24 08:00 84 137/90 10/08/24 07:50 79 25 H 94 10/08/24 07:45 96 H 24 94 Mechanical Vent 10/08/24 07:30 85 27 H 94 Mechanical Vent 10/08/24 07:21 84 27 H 95 Mechanical Vent 10/08/24 07:00 84 26 H 96 Mechanical Vent 10/08/24 07:00 36.8 C 10/08/24 07:00 Mechanical Vent 10/08/24 06:48 89 24 94 Mechanical Vent 10/08/24 06:12 86 26 H 95 10/08/24 05:42 81 25 H 94 10/08/24 05:15 92 H 23 95 10/08/24 04:36 83 26 H 94 10/08/24 04:18 36.8 C 80 25 H 94 10/08/24 03:57 78 26 H 95 10/08/24 03:40 81 25 H 93 10/08/24 03:39 75 24 94 10/08/24 03:18 87 25 H 93 10/08/24 03:00 80 26 H 93 10/08/24 03:00 10/08/24 02:48 83 25 H 93 Mechanical Vent 10/08/24 02:21 80 23 92 10/08/24 01:57 26 H 92 10/08/24 01:42 90 24 91 10/08/24 01:18 109 H 24 92 10/08/24 01:03 118 H 27 H 93 10/08/24 00:51 94 H 25 H 95 10/08/24 00:42 107 H 22 95 10/08/24 00:15 37.1 C 111 H 26 H 97 10/08/24 00:00 116 H 10/07/24 23:54 37.1 C 108 H 26 H 97 10/07/24 23:47 90 26 H 96 10/07/24 23:15 37.1 C 113 H 25 H 97 10/07/24 23:12 113 H 29 H 97 O2 Del Method FiO2 10/08/24 10:36 10/08/24 10:09 10/08/24 09:48 10/08/24 09:36 10/08/24 09:01 10/08/24 09:00 10/08/24 08:58 40 10/08/24 08:48 10/08/24 08:39 10/08/24 08:25 Mechanical Vent 10/08/24 08:21 10/08/24 08:00 10/08/24 08:00 10/08/24 07:50 40 10/08/24 07:45 10/08/24 07:30 10/08/24 07:21 10/08/24 07:00 10/08/24 07:00 10/08/24 07:00 10/08/24 06:48 40 10/08/24 06:12 10/08/24 05:42 10/08/24 05:15 10/08/24 04:36 10/08/24 04:18 10/08/24 03:57 10/08/24 03:40 40 10/08/24 03:39 10/08/24 03:18 10/08/24 03:00 10/08/24 03:00 40 10/08/24 02:48 40 10/08/24 02:21 10/08/24 01:57 10/08/24 01:42 10/08/24 01:18 10/08/24 01:03 10/08/24 00:51 10/08/24 00:42 10/08/24 00:15 10/08/24 00:00 10/07/24 23:54 10/07/24 23:47 40 10/07/24 23:15 10/07/24 23:12 Laboratory Results Short CBC 10/08/24 Range/Units 03:41 WBC 15.75 H (4.8-10.8) K/ul Hgb 11.2 L (14.0-18.0) g/dl Hct 32.8 L (42.0-52.0) % Plt Count 226 (130-400) K/uL BMP 10/08/24 03:40 Sodium 136 Potassium 5.2 H D Chloride 102 Carbon Dioxide 22 BUN 70 H Creatinine 3.24 H Glucose 135 H Calcium 8.2 L Cardiac Enzymes 10/07/24 Range/Units 11:54 Total Creatine Kinase 68 (30-223) U/L Liver Function 10/07/24 10/08/24 Range/Units 15:26 03:40 Total Bilirubin 0.7 0.5 (0.2-1.0) mg/dl Direct Bilirubin 0.3 H 0.2 (0-0.2) mg/dl AST 94 H 66 H (13-39) U/L ALT 131 H 104 H (7-52) U/L Alkaline Phosphatase 229 H 183 H (34-104) U/L Albumin 2.8 L 2.4 L (3.4-5.0) gm/dl Diagnostic Findings Liver Ultrasound 10/07/24 11:36 Exam(s): US LIVER EXAM: US Abdomen Limited CLINICAL HISTORY: Reason for exam: transaminitis, cholecystitis?. TECHNIQUE: Real-time ultrasound of the abdomen with image documentation. COMPARISON: Plain films from 09/30/2024 FINDINGS: Liver: The liver is mildly hyperechoic suggesting fatty infiltration. No focal liver mass lesion is seen. The liver is enlarged measuring 21 cm craniocaudad. Gallbladder: The gallbladder is borderline dilated measuring 10 x 4 cm. No gallstones. No wall thickening or surrounding fluid. Sonographic Platt's sign is negative, however, the patient is sedated. Common bile duct: The common bile duct is upper normal in diameter measuring 7 mm. No choledocholithiasis is seen. Pancreas: The visualized portion of the pancreas is unremarkable. Kidneys: Unremarkable. No stones. No hydronephrosis. The right kidney measures 11.4 x 6.3 cm. Inferior vena cava: The IVC is unremarkable. IMPRESSION: 1. The liver is mildly hyperechoic suggesting fatty infiltration. No focal liver mass lesion is seen. The liver is enlarged measuring 21 cm craniocaudad. 2. The gallbladder is borderline dilated measuring 10 x 4 cm. No gallstones. No wall thickening or surrounding fluid. 3. Sonographic Platt's sign is negative, however, the patient is sedated. Electronically signed by: Mono Villa MD 10/07/24 23:30 PM Chest X-Ray 10/08/24 08:44 XR chest 1V portable CLINICAL HISTORY: eval post bronch COMPARISON STUDY: 10/07/2024 FINDINGS: Endotracheal tube tip is just below the thoracic inlet. Nasogastric tube tip is off the field of view inferiorly. Bilateral central catheters are stable. Stable mild cardiomegaly with mild pulmonary vascular congestion. Stable opacity at the right mid and lower lung with obscuration of the right hemidiaphragm. No pneumothorax seen. IMPRESSION: No pneumothorax seen. Otherwise as described. ACT 112: Negative or not required by law. Electronically signed by: Herman Brush M.D. 10/08/2024 9:10 AM Medications Administered Current Inpatient Medications Budesonide (Budesonide 0.25 Mg/2 Ml Vial (Pulmicort)) 0.5 mg NEB BIDR [facility] Stop: 11/06/24 14:14 Last Admin: 10/08/24 07:50 Dose: 0.5 mg Calcium Acetate (Calcium Acetate 667 Mg Cap/Tab) 667 mg PO BID ANA Stop: 11/05/24 13:59 Last Admin: 10/08/24 07:40 Dose: 667 mg Dextrose (Dextrose 50% 50 Ml Syringe) 25 - 50 ml IV UD PRN; Protocol PRN Reason: Hypoglycemia Protocol Stop: 10/31/24 00:18 Enteral Nutritional Formula (Novasource Renal 2.0 Martínez 1000ml Bag) 1,000 ml OG .See Protocol ANA; Protocol Stop: 11/02/24 10:29 Last Admin: 10/06/24 17:22 Dose: 1,000 ml Fentanyl Citrate (Fentanyl Citrate Pf 100 Mcg/2 Ml Vial) 50 mcg IV Q15M PRN PRN Reason: Pain Stop: 10/22/24 08:08 Folic Acid (Folic Acid 1 Mg Tab) 1 mg PO DAILY ANA Stop: 11/03/24 08:59 Last Admin: 10/08/24 07:42 Dose: 1 mg Glucagon (Glucagon For Inj 1 Mg Vial) 1 mg SQ UD PRN; Protocol PRN Reason: Hypoglycemia Protocol Stop: 10/31/24 00:18 Glucose (Glucose 40% Gel 15 Gm Tube) 15 - 30 gm PO UD PRN; Protocol PRN Reason: Hypoglycemia Protocol Stop: 10/31/24 00:18 Glucose (Glucose 10 Tab/Tube) 4 - 8 tab PO UD PRN; Protocol PRN Reason: Hypoglycemia Protocol Stop: 10/31/24 00:18 Heparin Sodium (Beef Lung) (Heparin 10 Unit/Ml 5 Ml Flush) 5 ml FLUSH PRN PRN PRN Reason: Flush Stop: 11/04/24 10:26 Pantoprazole Sodium (Protonix) 40 mg in 10 mls @ 5 mls/min IV BID ANA Stop: 10/30/24 08:59 Last Admin: 10/08/24 07:42 Dose: 5 mls/min Heparin Sodium/Dextrose (Heparin 32719 Unit/500 Ml D5w) 25,000 units in 500 mls @ 0 mls/hr IV .Q0M ANA; Protocol Stop: 10/31/24 01:59 Last Titration: 10/08/24 10:24 Dose: 2,000 units/hr, 40 mls/hr Azithromycin (Zithromax) 500 mg in 255 mls @ 127.5 mls/hr IV Q24H [facility] Stop: 10/08/24 23:59 Last Infusion: 10/07/24 17:52 Dose: Infused Cefepime HCl (Maxipime 2000mg) 1,000 mg in 10 mls @ 5 mls/min IV Q24H [facility] Stop: 10/12/24 16:59 Last Admin: 10/07/24 16:58 Dose: 5 mls/min Metronidazole (Flagyl) 500 mg in 100 mls @ 100 mls/hr IV Q8H [facility] Stop: 10/12/24 17:59 Last Admin: 10/08/24 10:08 Dose: 100 mls/hr Sodium Chloride (Nss) 1,000 mls @ 0 mls/hr IV .Q0M PRN PRN Reason: For Hemodialysis Use ONLY Stop: 10/08/24 12:59 Hydrocortisone Sodium (Succinate 50 mg/ Syringe) 1 mls @ 4 mls/min IV Q6H [facility] Stop: 11/06/24 14:59 Last Admin: 10/08/24 07:41 Dose: 4 mls/min Ketamine HCl (Ketalar / Nss) 500 mg in 500 mls @ 7.3 mls/hr IV .Q24H [facility]; Protocol Stop: 11/06/24 13:44 Last Titration: 10/08/24 08:47 Dose: 0 mg/kg/hr, 0 mls/hr Dexmedetomidine/Sodium Chloride (Precedex) 400 mcg in 100 mls @ 0 mls/hr IV .Q0M [facility]; Protocol Stop: 10/12/24 02:44 Last Titration: 10/08/24 08:45 Dose: 0 mcg/kg/hr, 0 mls/hr Insulin Aspart (Insulin Aspart Per Unit Charge) 0 units SC Q4 [facility] Stop: 11/02/24 11:59 Last Admin: 10/08/24 07:53 Dose: Not Given Levalbuterol HCl (Levalbuterol 1.25 Mg/3 Ml Neb) 1.25 mg NEB Q8R [facility] Stop: 10/30/24 14:59 Last Admin: 10/08/24 07:50 Dose: 1.25 mg Miscellaneous (Carbohydrates For Hypoglycemia ) 15 - 30 gm PO UD PRN PRN Reason: Hypoglycemia Protocol Stop: 10/31/24 00:18 Miscellaneous Information (Pharmacy Glycemic Mgmt Consult) 1 each N/A UD PRN PRN Reason: Consult Stop: 10/31/24 09:59 Multi-Ingredient Cream (Artificial Tears Op Oint 3.5 Gm Tube) 1 appln OP Q4H [facility] Stop: 11/06/24 12:44 Last Admin: 10/08/24 07:54 Dose: Not Given Nutritional Formula (Prosource No Carb 30 Ml/Pkt) 30 ml OG TID [facility] Stop: 11/02/24 13:59 Last Admin: 10/08/24 10:01 Dose: Not Given Sodium Chloride (Sodium Chlor 7% 4 Ml Neb) 4 ml NEB BIDR [facility] Stop: 11/03/24 18:59 Last Admin: 10/08/24 07:50 Dose: 4 ml Sterile Water (Tube Feeding Water Flush) 30 ml GT Q4H [facility] Stop: 10/30/24 10:29 Last Admin: 10/08/24 10:11 Dose: Not Given Thiamine HCl (Thiamine Hcl 100 Mg Tab) 100 mg PO DAILY [facility] Stop: 11/03/24 08:59 Last Admin: 10/08/24 07:41 Dose: 100 mg
[2024-10-08] MEDS: LINEZOLID 600 MG/300 ML BAG IV SCH (12:29)
[2024-10-08] MEDS ORDERED: STAT IV Infusion **Titration per Protocol STA ×2 (13:22→14:27)
[2024-10-08] MEDS ORDERED: dexMEDEtomidine 200 MCG/50 ML BAG IV SCH (13:30)
[2024-10-08] MEDS: METOPROLOL TARTRATE 1 MG/ML VIAL IV ONE (14:06)
[2024-10-08] MEDS: METOPROLOL TARTRATE 1 MG/ML VIAL IV STA ×2 (14:07→16:55)
[2024-10-08] MEDS: PHENYLEPHRINE/NSS 25 MG/250 ML BAG IV SCH ×2 (14:27→23:25)
[2024-10-08 14:58] LABS: Anion Gap 15.0 (3-11); Blood Urea Nitrogen 87.0 mg/dl (6-23); Calcium 8.5 mg/dl (8.6-10.3); Carbon Dioxide 20.0 mmol/L (21-32); Chloride 100.0 mmol/L (98-107); Creatinine Clr Calc Pharmacy 29.6 ml/min; Glucose 157.0 mg/dl (70-99(Fasting)); Potassium 4.6 mmol/L (3.5-5.1); Sodium 135.0 mmol/L (136-145)
[2024-10-08] MEDS: PHENYLEPHRINE HCL 25 MG/250 ML NSS IV ONE (15:25)
[2024-10-08 20:03] LABS: ANTI-Xa, UFH(UnfractionatedHep 0.29 IU/ml (0.3-0.7)
[2024-10-08] MEDS: MIDAZOLAM HCL 1 MG/ML 2ML VIAL IV STA (23:25)
[2024-10-08] MEDS: VECURONIUM BROMIDE 10 MG VIAL IV STA (23:30)
--- NOTE | 2024-10-09 00:34 | XRay Report ---
Exam(s): XR CXR 1 VIEW EXAM: XR Chest, 1 View CLINICAL HISTORY: Reason for exam: Hypoxia. TECHNIQUE: Frontal view of the chest. COMPARISON: 10/08/2024 at 8:56 a.m. FINDINGS: Lungs: Persistent right lower lung increased density consistent with pneumonia or atelectasis, unchanged. Pleural space: Unremarkable. No pneumothorax. Heart: The cardiac silhouette is borderline enlarged. Mediastinum: Unremarkable. Normal mediastinal contour. Bones/joints: Osteophytosis throughout the mid to lower thoracic spine. No acute fracture. Tubes, lines and devices: Endotracheal tube tip located 5.3 cm from the kimberley. There is a left internal jugular central venous catheter and right internal jugular temporary dialysis catheter both terminating in the superior vena cava, similar to previous. IMPRESSION: 1. Persistent right lower lung increased density consistent with pneumonia or atelectasis, unchanged. 2. Endotracheal tube tip located 5.3 cm from the kimberley. There is a left internal jugular central venous catheter and right internal jugular temporary dialysis catheter both terminating in the superior vena cava, similar to previous. 3. The cardiac silhouette is borderline enlarged. Electronically signed by: Mono Villa MD 10/09/24 00:32 AM
[2024-10-09] MEDS: VECURONIUM BROMIDE 10 MG VIAL IV ONE (00:50)
[2024-10-09] MEDS: MIDAZOLAM HCL 1 MG/ML 2ML VIAL ONE (00:50)
[2024-10-09] MEDS ORDERED: STAT IV Infusion **Titration per Protocol STA ×2 (00:52→23:18)
--- NOTE | 2024-10-09 00:57 | Procedure Note ---
Procedure Note Date of Service October 09, 2024 BRONCHOSCOPY Procedure: Flexible Bronchoscopy Attending: MD Brendan Cable Installation Technician: Emili Carcamo PA-C Anesthetic/Sedation: 2mg Versed, 100mcg Fentanyl, 7.3mg vecuronium Indication: Mucus plugging, inability to ventilate Emergent procedure. A time-out was completed verifying correct patient, procedure, site, positioning, and implant(s) or special equipment if applicable. BVM due to inability to ventilate. Bronchoscope was inserted via the endotracheal tube. Bilateral tracheobronchial inspection was performed. Airways hyperemic and irritated. Diffuse thick yellow and batista secretions were encountered throughout all airways. Right middle and lower lobes most significant. Sizable thick, dark yellow mucus plug was suctions from RML. Total 20mL saline administered to R side to assist airway clearance. Total 20mL saline administered to L side to assist airway clearance. LLL quite hyperemic with oozing, cold saline administered. No bloody secretions noted. No cultures sent from this therapeutic bronchoscopy. Complications: NONE Impression: Diffuse mucus plugging throughout all airways. Hyperemic airways. Plan: Ventilation improved following procedure. Repeat CXR this AM. Patient's , Lanie, was notified via telephone. All questions answered to apparent satisfaction. [facility] [place]Charges) Pulmonary/Thoracic Procedure 1: Pulmonary and Thoracic: 00918 Bronchoscopy, clear airways Sedation/Anesthesia Procedure 1: Sedation/Anesthesia: 16057 Mod Sedation by the same physician;Init15 Min Child Age 5 & Up Coding CPT Codes Sedation/Anesthesia - Sedation/Anesthesia: 75640 Mod Sedation by the same physician;Init15 Min Child Age 5 & Up ([id number]) Pulmonary/Thoracic - Pulmonary and Thoracic: 41475 Bronchoscopy, clear airways ([id number]) Additional Codes Date of Service ([email or web address])
[2024-10-09] MEDS ORDERED: Nursing to Pharmacy Communication SCH ×2 (01:15)
[2024-10-09 03:19] LABS: ANTI-Xa, UFH(UnfractionatedHep 0.43 IU/ml (0.3-0.7)
[2024-10-09 03:32] LABS: Hematocrit (blood only) 32.0 % (42.0-52.0); Hemoglobin 10.8 g/dl (14.0-18.0); Mean Corpuscular Hemoglobin 31.5 pg (25.0-34.0); Mean Corpuscular Volume 93.3 fL (80.0-100.0); Platelet Count 234 K/uL (130-400); RDW Standard Deviation 50.3 fL (36.4-46.3); Red Blood Count 3.43 M/uL (4.70-6.10); White Blood Count 14.75 K/ul (4.8-10.8)
[2024-10-09 03:37] LABS: Anion Gap 14.0 (3-11); Blood Urea Nitrogen 102.0 mg/dl (6-23); Calcium 8.2 mg/dl (8.6-10.3); Carbon Dioxide 20.0 mmol/L (21-32); Chloride 100.0 mmol/L (98-107); Creatinine Clr Calc Pharmacy 27.2 ml/min; Glucose 177.0 mg/dl (70-99(Fasting)); Magnesium 2.3 mg/dl (1.7-2.4); Potassium 4.8 mmol/L (3.5-5.1); Sodium 134.0 mmol/L (136-145)
[2024-10-09 03:49] LABS: Immature Granulocytes # (auto) 1.04 K/uL (0.01-0.20); Immature Granulocytes % (auto) 7.1 %; Polychromasia 1+
--- NOTE | 2024-10-09 07:38 | XRay Report ---
EXAM: XR chest 1V portable CLINICAL HISTORY: Post-bronchoscopy TECHNIQUE: Radiograph of chest was acquired. COMPARISON: 10/07/2024 12:15:21 GUIDE [employer]G TRAINER FINDINGS: Blunted right costophrenic angle with hazy opacity in right lower zone. Endotracheal tube in situ with its tip approximately 4cm above kimberley. Rest of the lungs are clear and well-expanded with no pulmonary infiltrate. The cardiomediastinal silhouette is within normal limits. No acute osseous abnormality. Central lines in situ with tips in SVC. IMPRESSION: 1. Blunted right costophrenic angle with hazy opacity in right lower zone. (Stable) 2. Endotracheal tube in situ with its tip approximately 4cm above kimberley. Electronically signed by Mazin Villaseñor 10-09-2024 07:38 AM
--- NOTE | 2024-10-09 08:55 | Nephrology Progress Note ---
Date of Service October 09, 2024 Assessment & Plan (1) NAOMY (acute kidney injury): Plan: * NAOMY - c/w ischemic ATN. 1st HD 10/02 * UO 3 L last 24 hours. I&O's were matched * POC discussed w/ ICU team this am. Weaning from mechanical ventilator is being performed. Will provide HD today to reduce azotemia * HD orders have been placed in EMR and HD RN notified. Will provide HD x 4hrs this afternoon and attempt 3-4 L UF * Serum PO4 is elevated. On renal enteral feeding. Ca-acetate 667 mg BID added 10/06/24. Monitor serum PO4 * Repeat BMP in am (2) Severe sepsis with septic shock: Plan: * Clinically improving. Remains on azithromycin and linezolid. ID following. BAL --> MRSA. Legionella +. (3) Acute hypoxemic respiratory failure: Plan: * Remains ventilator dependent. UF as tolerated. Admission and Anticipated Discharge Date Admission Date: September 29, 2024 Subjective Mr. Moyer was evaluated in the ICU this morning. He was alert but remains mechanically ventilated. He had a brisk response to IV furosemide therapy yesterday Review of Systems Review of Systems: Unobtainable due to endotracheal tube Physical Exam Constitutional: + ill appearing Eyes: + anicteric sclerae ENMT: external ear and nose normal, oropharynx normal Neck: trachea midline, no thyromegaly Cardiovascular: Rate/Rhythm: + tachycardic Extremities: + edema (2-3+ dependent edema of the arms and legs) Gastrointestinal (Abdomen): normal bowel sounds, soft, nontender, no hepatosplenomegaly Musculoskeletal: Extremities: no cyanosis and no clubbing Skin: no rashes, warm and dry Results & Data Vital Signs (Past 12 Hours) Vital Signs Temp Pulse Pulse Resp BP BP Pulse Ox 10/09/24 07:52 10/09/24 07:42 10/09/24 07:39 88 146/67 H 10/09/24 07:36 85 24 95 10/09/24 07:27 92 H 23 95 10/09/24 07:21 86 10/09/24 07:10 81 24 95 10/09/24 06:00 81 24 95 10/09/24 05:59 83 24 95 10/09/24 05:56 67 24 95 10/09/24 05:44 72 24 94 10/09/24 05:36 77 24 94 10/09/24 05:30 77 24 94 10/09/24 05:18 90 24 94 10/09/24 05:02 87 24 94 10/09/24 04:47 92 H 24 93 10/09/24 04:32 90 23 94 10/09/24 04:15 101 H 26 H 94 10/09/24 04:06 86 24 95 10/09/24 04:00 10/09/24 03:50 88 24 94 10/09/24 03:48 79 24 95 10/09/24 03:39 96 H 24 95 10/09/24 03:06 82 24 94 10/09/24 02:54 85 24 94 10/09/24 02:39 90 24 95 10/09/24 02:00 87 25 H 95 10/09/24 01:45 82 24 94 10/09/24 01:33 92 H 26 H 94 10/09/24 01:03 95 H 24 94 10/09/24 00:33 98 H 24 95 10/09/24 00:21 102 H 24 95 10/09/24 00:18 100 H 24 95 10/09/24 00:05 10/09/24 00:03 105 H 24 96 10/09/24 00:00 96 H 24 96 10/09/24 00:00 105 H 10/08/24 23:59 10/08/24 23:54 109 H 24 97 10/08/24 23:45 93 H 24 95 10/08/24 23:42 37.1 C 102 H 20 97 10/08/24 23:33 107 H 17 97 10/08/24 23:00 105 H 24 95 10/08/24 22:53 103 H 20 146/73 H 97 10/08/24 22:52 106 H 145/69 H 97 10/08/24 22:51 109 H 20 137/69 97 10/08/24 22:51 103 H 24 97 10/08/24 22:50 43 L 20 50/24 L 79 L 10/08/24 22:49 103 H 73/34 L 90 10/08/24 22:48 101 H 20 127/61 90 10/08/24 22:47 90 23 133/61 90 10/08/24 22:45 106 H 24 90 10/08/24 22:39 83 24 92 10/08/24 22:33 91 H 24 97 10/08/24 22:09 89 24 90 10/08/24 22:06 93 H 24 90 10/08/24 22:03 88 24 91 10/08/24 22:00 91 H 25 H 92 10/08/24 21:51 101 H 24 93 10/08/24 21:39 104 H 23 93 10/08/24 21:15 119 H 32 H 94 10/08/24 21:03 112 H 21 92 O2 Del Method FiO2 10/09/24 07:52 Mechanical Vent 50 10/09/24 07:42 50 10/09/24 07:39 10/09/24 07:36 Mechanical Vent 10/09/24 07:27 Mechanical Vent 10/09/24 07:21 10/09/24 07:10 50 10/09/24 06:00 10/09/24 05:59 10/09/24 05:56 10/09/24 05:44 10/09/24 05:36 10/09/24 05:30 10/09/24 05:18 10/09/24 05:02 10/09/24 04:47 10/09/24 04:32 10/09/24 04:15 10/09/24 04:06 10/09/24 04:00 50 10/09/24 03:50 60 10/09/24 03:48 10/09/24 03:39 10/09/24 03:06 10/09/24 02:54 10/09/24 02:39 10/09/24 02:00 10/09/24 01:45 10/09/24 01:33 10/09/24 01:03 10/09/24 00:33 Mechanical Vent 70 10/09/24 00:21 10/09/24 00:18 10/09/24 00:05 Ambu-Bag 10/09/24 00:03 10/09/24 00:00 10/09/24 00:00 10/08/24 23:59 70 10/08/24 23:54 10/08/24 23:45 80 10/08/24 23:42 10/08/24 23:33 10/08/24 23:00 10/08/24 22:53 Ambu-Bag 10/08/24 22:52 Ambu-Bag 10/08/24 22:51 Ambu-Bag 10/08/24 22:51 10/08/24 22:50 Ambu-Bag 10/08/24 22:49 Ambu-Bag 10/08/24 22:48 Ambu-Bag 10/08/24 22:47 Ambu-Bag 10/08/24 22:45 10/08/24 22:39 10/08/24 22:33 10/08/24 22:09 10/08/24 22:06 10/08/24 22:03 10/08/24 22:00 10/08/24 21:51 10/08/24 21:39 10/08/24 21:15 10/08/24 21:03 Laboratory Results Laboratory Results - last 24 hr 09/30/24 10/02/24 10/08/24 08:45 Unknown 12:28 WBC RBC Hgb Hct MCV MCH MCHC RDW Std Deviation RDW Coeff of [place] Plt Count MPV Immature Gran % (Auto) Neut % (Auto) Lymph % (Auto) [place] % (Auto) Eos % (Auto) Baso % (Auto) Neut # (Auto) Lymph # (Auto) [place] # (Auto) Eos # (Auto) Baso # (Auto) Immature Gran # (Auto) Absolute Nucleated RBC Nucleated RBC % (auto) Polychromasia Heparin Anti-Xa, Unfract Sodium Potassium Chloride Carbon Dioxide Anion Gap BUN Creatinine Est Cr Clr Drug Dosing eGFR BUN/Creatinine Ratio Glucose POC Glucose 118 H Calcium Phosphorus Magnesium Coccidioid immitis DNA See Scanned Report Histo/Blasto PCR Result See Scanned Report Influenza and RSV (PCR) See Scanned Report Legionella sp (PCR) See Scanned Report See Scanned Report 10/08/24 10/08/24 10/08/24 13:49 16:30 18:47 WBC RBC Hgb Hct MCV MCH MCHC RDW Std Deviation RDW Coeff of [place] Plt Count MPV Immature Gran % (Auto) Neut % (Auto) Lymph % (Auto) [place] % (Auto) Eos % (Auto) Baso % (Auto) Neut # (Auto) Lymph # (Auto) [place] # (Auto) Eos # (Auto) Baso # (Auto) Immature Gran # (Auto) Absolute Nucleated RBC Nucleated RBC % (auto) Polychromasia Heparin Anti-Xa, Unfract 0.29 L Sodium 135 L Potassium 4.6 Chloride 100 Carbon Dioxide 20 L Anion Gap 15 H BUN 87 H Creatinine 3.48 H Est Cr Clr Drug Dosing 29.6 eGFR 18.94 BUN/Creatinine Ratio 25.0 H Glucose 157 H POC Glucose 136 H Calcium 8.5 L Phosphorus Magnesium Coccidioid immitis DNA Histo/Blasto PCR Result Influenza and RSV (PCR) Legionella sp (PCR) 10/08/24 10/09/24 10/09/24 20:14 00:46 03:00 WBC 14.75 H RBC 3.43 L Hgb 10.8 L Hct 32.0 L MCV 93.3 MCH 31.5 MCHC 33.8 RDW Std Deviation 50.3 H RDW Coeff of [place] 14.6 H Plt Count 234 MPV 11.6 Immature Gran % (Auto) 7.1 Neut % (Auto) 83.3 Lymph % (Auto) 3.9 [place] % (Auto) 5.2 Eos % (Auto) 0.1 Baso % (Auto) 0.4 Neut # (Auto) 12.30 H Lymph # (Auto) 0.57 L [place] # (Auto) 0.76 H Eos # (Auto) 0.02 Baso # (Auto) 0.06 Immature Gran # (Auto) 1.04 H Absolute Nucleated RBC 0.02 Nucleated RBC % (auto) 0.1 Polychromasia 1+ Heparin Anti-Xa, Unfract 0.43 Sodium 134 L Potassium 4.8 Chloride 100 Carbon Dioxide 20 L Anion Gap 14 H BUN 102 H Creatinine 3.78 H D Est Cr Clr Drug Dosing 27.2 eGFR 17.15 BUN/Creatinine Ratio 27.0 H Glucose 177 H POC Glucose 124 H 131 H Calcium 8.2 L Phosphorus 10.6 H Magnesium 2.3 Coccidioid immitis DNA Histo/Blasto PCR Result Influenza and RSV (PCR) Legionella sp (PCR) 10/09/24 10/09/24 03:33 08:06 WBC RBC Hgb Hct MCV MCH MCHC RDW Std Deviation RDW Coeff of [place] Plt Count MPV Immature Gran % (Auto) Neut % (Auto) Lymph % (Auto) [place] % (Auto) Eos % (Auto) Baso % (Auto) Neut # (Auto) Lymph # (Auto) [place] # (Auto) Eos # (Auto) Baso # (Auto) Immature Gran # (Auto) Absolute Nucleated RBC Nucleated RBC % (auto) Polychromasia Heparin Anti-Xa, Unfract Sodium Potassium Chloride Carbon Dioxide Anion Gap BUN Creatinine Est Cr Clr Drug Dosing eGFR BUN/Creatinine Ratio Glucose POC Glucose 144 H 146 H Calcium Phosphorus Magnesium Coccidioid immitis DNA Histo/Blasto PCR Result Influenza and RSV (PCR) Legionella sp (PCR) PG Care Time/CCT Total # of Minutes Spent Total Time Spent with Patient: Total time spent is greater than 50% in coordination of care (as documented) at patient's floor/unit and/or counseling patient: Coding Level of Care Code 05226 SUB INP/OBS CARE 3/50MIN Diagnoses NAOMY (acute kidney injury) N17.9 Severe sepsis with septic shock A41.9; R65.21 Acute hypoxemic respiratory failure J96.01
[2024-10-09] MEDS: FUROSEMIDE 40 MG/4 ML VIAL IV ONE (09:05)
--- NOTE | 2024-10-09 09:38 | Hospitalist Progress Note ---
Date of Service October 09, 2024 Assessment & Plan (1) Respiratory failure: Plan: Due to MRSA and Legionella pneumonia Bronchial lavage growing MRSA Urine Legionella positive Currently on cefepime, vancomycin, Flagyl Consulted infectious disease. Remains intubated bronchoscopy showing significant mucus plugging, cleared out - repeat bronchoscopy still with mucus plugging (2) COPD (chronic obstructive pulmonary disease) with emphysema: Plan: Budesonide twice daily Solu-medrol (3) Atrial fibrillation: Plan: -amiodarone d/c'd - heparin drip (4) NAOMY (acute kidney injury): Plan: ATN due to septic shock Creatinine still rising Still oliguric/anuric Tolerated dialysis yesterday. Nephrology involved Patient will likely need a permacath (5) Hypertension: Plan: -losartan on hold 2nd to hypotension (6) Acute hyponatremia: Plan: -Na+ 134 (7) Acute non-ST elevation myocardial infarction (NSTEMI): Plan: Most likely demand ischemia due to hypoxia and tachycardia. (8) Alcohol withdrawal delirium: Plan: Currently on propofol and fentanyl Thiamine and folic acid Plan This is a 64-year-old morbidly obese male with a history of COPD, hypertension who presents with severe respiratory distress, now on BiPAP. Chest x-ray showed pneumonia. He was given DuoNebs, steroids, ceftriaxone in the emergency room. Labs significant for lactic acidosis of 5, anion gap metabolic acidosis, hyponatremia, hypokalemia, elevated troponin, elevated procalcitonin. His blood pressure dropped while in the ER. He is being admitted to the ICU with acute hypoxic respiratory failure, pneumonia with severe sepsis Admission and Anticipated Discharge Date Admission Date: September 29, 2024 Subjective Pt had emergent bronchoscopy last night to remove mucus plugs. Review of Systems Review of Systems: Intubated, sedated Physical Exam Physical Exam: GENERAL APPEARANCE Intubated EYES lids/conjunctiva normal. EARS/NOSE/THROAT Mucous membranes moist, nares normal, lips/teeth normal uvula midline without oral pharyngeal erythema, exudate or swelling TMs normal bilaterally. No lymphangitis/lymphedema. HEAD/NECK ET tube in placed RESPIRATORY respiratory effort normal, speaks in full sentences, no tripod position, no accessory muscle use. Lungs clear to auscultation without rhonchi, wheezes, rales CARDIAC Regular rate and rhythm, no edema. ABDOMINAL Soft, ND/NT. No evidence of fluid wave. No pulsatile masses on exam, rebound tenderness, Platt sign or pain over Mcburney's point. MUSCLES/EXTREMITIES No abnormal range of motion, no swelling. SKIN Warm, pink and dry. No rashes, dermatoses, petechiae or lesions. NEUROLOGICAL Sedated PSYCH Normal mood and affect. Judgement/competence is appropriate Results & Data Results & Data Vital Signs (Past 12 Hours) Vital Signs Temp Pulse Pulse Resp BP BP Pulse Ox 10/09/24 08:36 86 24 95 10/09/24 08:00 79 24 94 10/09/24 07:52 10/09/24 07:42 10/09/24 07:39 88 146/67 H 10/09/24 07:36 85 24 95 10/09/24 07:27 92 H 23 95 10/09/24 07:21 86 10/09/24 07:10 81 24 95 10/09/24 06:00 81 24 95 10/09/24 05:59 83 24 95 10/09/24 05:56 67 24 95 10/09/24 05:44 72 24 94 10/09/24 05:36 77 24 94 10/09/24 05:30 77 24 94 10/09/24 05:18 90 24 94 10/09/24 05:02 87 24 94 10/09/24 04:47 92 H 24 93 10/09/24 04:32 90 23 94 10/09/24 04:15 101 H 26 H 94 10/09/24 04:06 86 24 95 10/09/24 04:00 10/09/24 03:50 88 24 94 10/09/24 03:48 79 24 95 10/09/24 03:39 96 H 24 95 10/09/24 03:06 82 24 94 10/09/24 02:54 85 24 94 10/09/24 02:39 90 24 95 10/09/24 02:00 87 25 H 95 10/09/24 01:45 82 24 94 10/09/24 01:33 92 H 26 H 94 10/09/24 01:03 95 H 24 94 10/09/24 00:33 98 H 24 95 10/09/24 00:21 102 H 24 95 10/09/24 00:18 100 H 24 95 10/09/24 00:05 10/09/24 00:03 105 H 24 96 10/09/24 00:00 96 H 24 96 10/09/24 00:00 105 H 10/08/24 23:59 10/08/24 23:54 109 H 24 97 10/08/24 23:45 93 H 24 95 10/08/24 23:42 37.1 C 102 H 20 97 10/08/24 23:33 107 H 17 97 10/08/24 23:00 105 H 24 95 10/08/24 22:53 103 H 20 146/73 H 97 10/08/24 22:52 106 H 145/69 H 97 10/08/24 22:51 109 H 20 137/69 97 10/08/24 22:51 103 H 24 97 10/08/24 22:50 43 L 20 50/24 L 79 L 10/08/24 22:49 103 H 73/34 L 90 10/08/24 22:48 101 H 20 127/61 90 10/08/24 22:47 90 23 133/61 90 10/08/24 22:45 106 H 24 90 10/08/24 22:39 83 24 92 10/08/24 22:33 91 H 24 97 10/08/24 22:09 89 24 90 10/08/24 22:06 93 H 24 90 10/08/24 22:03 88 24 91 10/08/24 22:00 91 H 25 H 92 10/08/24 21:51 101 H 24 93 10/08/24 21:39 104 H 23 93 O2 Del Method FiO2 10/09/24 08:36 Mechanical Vent 50 10/09/24 08:00 Mechanical Vent 50 10/09/24 07:52 Mechanical Vent 50 10/09/24 07:42 50 10/09/24 07:39 10/09/24 07:36 Mechanical Vent 10/09/24 07:27 Mechanical Vent 10/09/24 07:21 10/09/24 07:10 50 10/09/24 06:00 10/09/24 05:59 10/09/24 05:56 10/09/24 05:44 10/09/24 05:36 10/09/24 05:30 10/09/24 05:18 10/09/24 05:02 10/09/24 04:47 10/09/24 04:32 10/09/24 04:15 10/09/24 04:06 10/09/24 04:00 50 10/09/24 03:50 60 10/09/24 03:48 10/09/24 03:39 10/09/24 03:06 10/09/24 02:54 10/09/24 02:39 10/09/24 02:00 10/09/24 01:45 10/09/24 01:33 10/09/24 01:03 10/09/24 00:33 Mechanical Vent 70 10/09/24 00:21 10/09/24 00:18 10/09/24 00:05 Ambu-Bag 10/09/24 00:03 10/09/24 00:00 10/09/24 00:00 10/08/24 23:59 70 10/08/24 23:54 10/08/24 23:45 80 10/08/24 23:42 10/08/24 23:33 10/08/24 23:00 10/08/24 22:53 Ambu-Bag 10/08/24 22:52 Ambu-Bag 10/08/24 22:51 Ambu-Bag 10/08/24 22:51 10/08/24 22:50 Ambu-Bag 10/08/24 22:49 Ambu-Bag 10/08/24 22:48 Ambu-Bag 10/08/24 22:47 Ambu-Bag 10/08/24 22:45 10/08/24 22:39 10/08/24 22:33 10/08/24 22:09 10/08/24 22:06 10/08/24 22:03 10/08/24 22:00 10/08/24 21:51 10/08/24 21:39 PG Care Time/CCT Total # of Minutes Spent Total Time Spent with Patient: Total time spent is greater than 50% in coordination of care (as documented) at patient's floor/unit and/or counseling patient: Coding Level of Care Code 32501 SUB INP/OBS CARE 2/35MIN Diagnoses Respiratory failure J96.90 COPD (chronic obstructive pulmonary disease) with emphysema J43.9 Atrial fibrillation I48.91 NAOMY (acute kidney injury) N17.9 Hypertension I10 Acute hyponatremia E87.1 Acute non-ST elevation myocardial infarction (NSTEMI) I21.4 Alcohol withdrawal delirium F10.935
[2024-10-09] MEDS ORDERED: SODIUM CHLORIDE 0.9% 1,000 ML IV PRN (09:41)
[2024-10-09] MEDS: Nursing to Pharmacy Communication SCH ×2 (10:28→17:07)
--- NOTE | 2024-10-09 11:06 | Infectious Disease Progress Nt ---
Date of Service October 09, 2024 Assessment & Plan (1) Pneumonia: (2) Acute hypoxemic respiratory failure: (3) NAOMY (acute kidney injury): Plan Problems: #MRSA and Legionella pneumonia #Acute hypoxic respiratory failure s/p intubation 09/30 #NAOMY Micro: 10/07 RLL BAL cx: scant normal anne 10/05 BCx x2: NGTD 10/05 C diff neg 10/02 R main stem BAL Bronchial cx: NG. GS no org Fungal cx: NGTD AFB smear neg, cx pending Legionella PCR: pending 09/30 RML BAL Bronchial cx: MRSA Fungal cx: NGTD AFB smear neg, cx NGTD Histo/Blasto PCR: neg Cocci PCR: neg Legionella PCR: positive Flu, RSV PCR: pending 09/29 Sputum cx: moderate normal anne 09/29 MRSA nares: positive 09/29 BCx x2: NGTD 09/29 Urine Legionella Ag: detected Abx: Linezolid 10/08 - present Cefepime 10/07 - present Metronidazole 10/07 - present Azithro 09/29 - present Vanc 09/29 - 10/01, 10/07 Ceftaroline 10/01 - 10/06 Pip-tazo 10/01 - 10/02 Ceftriaxone 09/29 - 09/30 64 yo M with COPD, HTN who presented on 09/29 with shortness of breath, admitted with AHRF, MRSA and Legionella pneumonia. On presentation, he was afebrile, HR 165, BP 116/89 (later dropped as low as 88/64), RR 34, requiring BiPAP. Labs showed WBC 10.41, plt 121, Na 124, K 2.3, Cr 1.16, AST 86, Tbili 1.2, lactate 5.4, procal 4.49. CTA chest with no PE, and RUL and RML pneumonia. He was started on vanc, ceftriaxone, azithromycin, solumedrol and admitted to the ICU. He was intubated on 09/30 due to respiratory failure. A bronchoscopy was performed, which showed a moderate amount of brown-red secretions in the R main which was suctioned out. RML BAL cx grew MRSA, and BAL Legionella PCR positive. Urine Legionella Ag returned positive. Overnight on 10/01, pt went into afib with RVR, required norepi, vasopressin, phenylephrine. Was persistently febrile. WBC increased to 19.28. Ceftriaxone was changed to Zosyn. Vanc was changed to ceftaroline. Kidney function worsening, with Cr up to 3.15 on 10/02. On phenylephrine and vasopressin. Repeat bronchoscopy done 10/02, which showed moderate amount of clear brown secretions in the R main going into the RLL. 10/02 BAL culture NG. Respiratory status worsening 10/07, so repeat bronchoscopy done which showed diffuse thick yellow and batista secretions bilaterally, significant mucous plugging of RLL and RUL. Ceftaroline changed to vanc, cefepime, metronidazole due to concern for VAP. Also continued on azithro for Legionella. 10/07 BAL cx with scant normal anne.. Recommendations: - Continue azithromycin 500 mg IV q24h for Legionella pneumonia to complete 14 day course through 10/12/24 - Continue linezolid 600 mg q12h for MRSA pneumonia - Can likely discontinue cefepime and metronidazole as BAL cultures have not grown other organisms Will continue to follow Admission and Anticipated Discharge Date Admission Date: September 29, 2024 Subjective This patient recommendation is based on a telemedicine consult request which was completed asynchronously through chart review and information provided by the primary physician. The patient was not seen or examined today. The evaluation is consultative in nature and all patient care and treatment decisions can either be accepted or rejected by the patient's primary hospital-based treating physician using their own independent medical judgment for their patient. Time Spent Reviewing Chart: 11 - 20 minutes Emergent therapeutic broncho performed overnight due to mucus plugging and inability to ventilate. Diffuse thick yellow and batista secretions seen. Sizable thick dark yellow mucus plug suctioned from RML. No cultures sent WBC 15.75 --> 14.75 Cr 3.78 Currently on linezolid, cefepime, metronidazole Results & Data Vital Signs (Past 12 Hours) Vital Signs Temp Pulse Resp BP Pulse Ox O2 Del Method FiO2 10/09/24 10:00 97 H 20 91 CPAP 10/09/24 09:57 77 16 93 50 10/09/24 09:51 86 16 93 CPAP 10/09/24 08:36 86 24 95 Mechanical Vent 50 10/09/24 08:00 79 24 94 Mechanical Vent 50 10/09/24 07:52 Mechanical Vent 50 10/09/24 07:42 50 10/09/24 07:39 88 146/67 H 07/30/25 07:36 85 24 95 Mechanical Vent 10/09/24 07:27 92 H 23 95 Mechanical Vent 10/09/24 07:21 86 10/09/24 07:10 81 24 95 50 10/09/24 06:00 81 24 95 10/09/24 05:59 83 24 95 10/09/24 05:56 67 24 95 10/09/24 05:44 72 24 94 10/09/24 05:36 77 24 94 10/09/24 05:30 77 24 94 10/09/24 05:18 90 24 94 10/09/24 05:02 87 24 94 10/09/24 04:47 92 H 24 93 10/09/24 04:32 90 23 94 10/09/24 04:15 101 H 26 H 94 10/09/24 04:06 86 24 95 10/09/24 04:00 50 10/09/24 03:50 88 24 94 60 10/09/24 03:48 79 24 95 10/09/24 03:39 96 H 24 95 10/09/24 03:06 82 24 94 10/09/24 02:54 85 24 94 10/09/24 02:39 90 24 95 10/09/24 02:00 87 25 H 95 10/09/24 01:45 82 24 94 10/09/24 01:33 92 H 26 H 94 10/09/24 01:03 95 H 24 94 10/09/24 00:33 98 H 24 95 Mechanical Vent 70 10/09/24 00:21 102 H 24 95 10/09/24 00:18 100 H 24 95 10/09/24 00:05 Ambu-Bag 10/09/24 00:03 105 H 24 96 10/09/24 00:00 96 H 24 96 10/09/24 00:00 105 H 10/08/24 23:59 70 10/08/24 23:54 109 H 24 97 10/08/24 23:45 93 H 24 95 80 10/08/24 23:42 37.1 C 102 H 20 97 10/08/24 23:33 107 H 17 97 10/08/24 23:00 105 H 24 95 Laboratory Results Short CBC 10/09/24 Range/Units 03:00 WBC 14.75 H (4.8-10.8) K/ul Hgb 10.8 L (14.0-18.0) g/dl Hct 32.0 L (42.0-52.0) % Plt Count 234 (130-400) K/uL BMP 10/08/24 10/09/24 13:49 03:00 Sodium 135 L 134 L Potassium 4.6 4.8 Chloride 100 100 Carbon Dioxide 20 L 20 L BUN 87 H 102 H Creatinine 3.48 H 3.78 H D Glucose 157 H 177 H Calcium 8.5 L 8.2 L Diagnostic Findings Chest X-Ray 10/08/24 22:58 Exam(s): XR CXR 1 VIEW EXAM: XR Chest, 1 View CLINICAL HISTORY: Reason for exam: Hypoxia. TECHNIQUE: Frontal view of the chest. COMPARISON: 10/08/2024 at 8:56 a.m. FINDINGS: Lungs: Persistent right lower lung increased density consistent with pneumonia or atelectasis, unchanged. Pleural space: Unremarkable. No pneumothorax. Heart: The cardiac silhouette is borderline enlarged. Mediastinum: Unremarkable. Normal mediastinal contour. Bones/joints: Osteophytosis throughout the mid to lower thoracic spine. No acute fracture. Tubes, lines and devices: Endotracheal tube tip located 5.3 cm from the kimberley. There is a left internal jugular central venous catheter and right internal jugular temporary dialysis catheter both terminating in the superior vena cava, similar to previous. IMPRESSION: 1. Persistent right lower lung increased density consistent with pneumonia or atelectasis, unchanged. 2. Endotracheal tube tip located 5.3 cm from the kimberley. There is a left internal jugular central venous catheter and right internal jugular temporary dialysis catheter both terminating in the superior vena cava, similar to previous. 3. The cardiac silhouette is borderline enlarged. Electronically signed by: Mono Villa MD 10/09/24 00:32 AM Chest X-Ray 10/09/24 05:00 EXAM: XR chest 1V portable CLINICAL HISTORY: Post-bronchoscopy TECHNIQUE: Radiograph of chest was acquired. 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 Endotracheal tube in situ with its tip approximately 4cm above kimberley. Rest of the lungs are clear and well-expanded with no pulmonary infiltrate. The cardiomediastinal silhouette is within normal limits. No acute osseous abnormality. Central lines in situ with tips in SVC. IMPRESSION: 1. Blunted right costophrenic angle with hazy opacity in right lower zone. (Stable) 2. Endotracheal tube in situ with its tip approximately 4cm above kimberley. Electronically signed by Mazin Villaseñor 10-09-2024 07:38 AM Medications Administered Current Inpatient Medications Budesonide (Budesonide 0.25 Mg/2 Ml Vial (Pulmicort)) 0.5 mg NEB BIDR ANA Stop: 11/06/24 14:14 Last Admin: 10/09/24 07:15 Dose: 0.5 mg Calcium Acetate (Calcium Acetate 667 Mg Cap/Tab) 667 mg PO BID ANA Stop: 11/05/24 13:59 Last Admin: 10/09/24 08:28 Dose: 667 mg Dextrose (Dextrose 50% 50 Ml Syringe) 25 - 50 ml IV UD PRN; Protocol PRN Reason: Hypoglycemia Protocol Stop: 10/31/24 00:18 Enteral Nutritional Formula (Novasource Renal 2.0 Martínez 1000ml Bag) 1,000 ml OG .See Protocol ANA; Protocol Stop: 11/02/24 10:29 Last Admin: 10/06/24 17:22 Dose: 1,000 ml Fentanyl Citrate (Fentanyl Citrate Pf 100 Mcg/2 Ml Vial) 50 mcg IV Q15M PRN PRN Reason: Pain or Agitation Stop: 10/22/24 08:08 Last Admin: 10/08/24 23:01 Dose: 50 mcg Folic Acid (Folic Acid 1 Mg Tab) 1 mg PO DAILY ANA Stop: 11/03/24 08:59 Last Admin: 10/09/24 08:28 Dose: 1 mg Glucagon (Glucagon For Inj 1 Mg Vial) 1 mg SQ UD PRN; Protocol PRN Reason: Hypoglycemia Protocol Stop: 10/31/24 00:18 Glucose (Glucose 40% Gel 15 Gm Tube) 15 - 30 gm PO UD PRN; Protocol PRN Reason: Hypoglycemia Protocol Stop: 10/31/24 00:18 Glucose (Glucose 10 Tab/Tube) 4 - 8 tab PO UD PRN; Protocol PRN Reason: Hypoglycemia Protocol Stop: 10/31/24 00:18 Heparin Sodium (Beef Lung) (Heparin 10 Unit/Ml 5 Ml Flush) 5 ml FLUSH PRN PRN PRN Reason: Flush Stop: 11/04/24 10:26 Pantoprazole Sodium (Protonix) 40 mg in 10 mls @ 5 mls/min IV BID [facility] Stop: 10/30/24 08:59 Last Admin: 10/09/24 08:29 Dose: 5 mls/min Cefepime HCl (Maxipime 2000mg) 1,000 mg in 10 mls @ 5 mls/min IV Q24H [facility] Stop: 10/13/24 23:59 Last Admin: 10/08/24 16:32 Dose: 5 mls/min Metronidazole (Flagyl) 500 mg in 100 mls @ 100 mls/hr IV Q8H [facility] Stop: 10/20/24 23:59 Last Infusion: 10/09/24 09:30 Dose: Infused Hydrocortisone Sodium (Succinate 50 mg/ Syringe) 1 mls @ 4 mls/min IV Q6H [facility] Stop: 11/06/24 14:59 Last Admin: 10/09/24 08:29 Dose: 4 mls/min Dexmedetomidine/Sodium Chloride (Precedex) 400 mcg in 100 mls @ 0 mls/hr IV .Q0M [facility]; Protocol Stop: 10/12/24 02:44 Last Admin: 10/09/24 10:29 Dose: Not Given Linezolid (Zyvox) 600 mg in 300 mls @ 200 mls/hr IV Q12H [facility] Stop: 10/13/24 11:59 Last Infusion: 10/09/24 02:28 Dose: Infused Phenylephrine HCl (Phenylephrine/Nss) 25 mg in 250 mls @ 0 mls/hr IV .Q0M ANA; Protocol Stop: 11/08/24 00:51 Last Titration: 10/09/24 10:16 Dose: Infused Sodium Chloride (Nss) 1,000 mls @ 0 mls/hr IV .Q0M PRN PRN Reason: For Hemodialysis Use ONLY Stop: 10/09/24 15:40 Insulin Aspart (Insulin Aspart Per Unit Charge) 0 units SC Q4 [facility] Stop: 11/02/24 11:59 Last Admin: 10/09/24 08:27 Dose: Not Given Levalbuterol HCl (Levalbuterol 1.25 Mg/3 Ml Neb) 1.25 mg NEB Q8R [facility] Stop: 10/30/24 14:59 Last Admin: 10/09/24 07:15 Dose: 1.25 mg Miscellaneous (Carbohydrates For Hypoglycemia ) 15 - 30 gm PO UD PRN PRN Reason: Hypoglycemia Protocol Stop: 10/31/24 00:18 Nutritional Formula (Prosource No Carb 30 Ml/Pkt) 30 ml OG TID [facility] Stop: 11/02/24 13:59 Last Admin: 10/09/24 08:30 Dose: 30 ml Sodium Chloride (Sodium Chlor 7% 4 Ml Neb) 4 ml NEB BIDR ANA Stop: 11/03/24 18:59 Last Admin: 10/09/24 07:16 Dose: 4 ml Sterile Water (Tube Feeding Water Flush) 30 ml GT Q4H ANA Stop: 10/30/24 10:29 Last Admin: 10/09/24 10:15 Dose: Not Given Thiamine HCl (Thiamine Hcl 100 Mg Tab) 100 mg PO DAILY [facility] Stop: 11/03/24 08:59 Last Admin: 10/09/24 08:28 Dose: 100 mg
[2024-10-09] MEDS: METOPROLOL TARTRATE 1 MG/ML VIAL IV STA ×2 (13:16→13:37)
[2024-10-09] MEDS: AZITHROMYCIN 500 MG/255 ML BAG IV SCH (13:22)
[2024-10-09 14:42] LABS: Anti Nuclear Antibody Screen POSITIVE (NEGATIVE)
--- NOTE | 2024-10-09 15:08 | Critical Care Progress Note ---
Date of Service October 09, 2024 Assessment & Plan (1) ARDS (adult respiratory distress syndrome): (2) Pneumonia: (3) Pleural effusion: (4) Acute hypoxemic respiratory failure: (5) Thrombocytopenia: (6) Airway intubation performed without difficulty: (7) History of tobacco abuse: (8) Respiratory failure: (9) COPD (chronic obstructive pulmonary disease) with emphysema: (10) Severe sepsis: (11) Acute non-ST elevation myocardial infarction (NSTEMI): (12) Alcohol withdrawal delirium: (13) MRSA pneumonia: (14) Legionella pneumonia: Plan Impression: 64-year-old male with severe obstructive lung disease at baseline admitted with multifocal pneumonia and hypoxemic respiratory failure with concomitant lactic acidosis. Lactate is improved with IV fluids. He is currently on antibiotics. He was placed on noninvasive positive pressure ventilation admitted to the ICU. Neurologic: CT head and MRI brain without acute findings. History of right cerebellar infarct. On thiamine and folic acid due to the reported history of alcohol abuse. Patient currently on sedation awakening trial and spontaneous breathing trial. If unable to be extubated, will restart Precedex if needed. Continue thiamine 100 mg daily. Consult PT and OT for early mobilization even while intubated due to profound weakness. Cardiovascular: 2D echo 09/30/2024: Moderate LV dysfunction, EF 40%, RV not well-visualized. Repeat echo 10/07/2024 with improved LVEF which was normalized. RV dysfunction noted troponin 10/07/2024 minimally elevated. Initially presented with a type II LA with elevated troponins likely demand ischemia. Holding home antihypertensives. Amiodarone discontinued due to transaminitis and elevation of TSH. Will use metoprolol as needed. Respiratory: Patient with ARDS secondary to Legionella and MRSA pneumonia which is slowly improving. Bronchoscopy results significant for MRSA and Legionella positive PCR. Patient completed 10 days of azithromycin for Legionella. Will complete 14 days of MRSA coverage with a combination of ceftaroline, vancomycin and now Zyvox. Continue cefepime. Follow-up bronchoscopy cultures. Repeat bronchoscopy performed 10/08/2024 and 10/07/2024. Significant mucous plugging noted bilaterally. Hydrocortisone 50 mg every 6 given intubation status and severe pneumonia. Patient also with a moderate right-sided free-flowing pleural effusion. No signs of loculations. Will continue to monitor and consider thoracentesis. Patient with a reported history of COPD. Patient may require tracheostomy in the next 1 to 2 days if unable to be extubated. GI: LFTs and lipase improving. Liver ultrasound 10/07/2024 with fatty liver infiltration. Gallbladder is mildly dilated. No stones noted. Possible acalculous cholecystitis. Alk phos is improving. Pantoprazole 40 mg twice daily. Patient with pancreatitis. Continue n.p.o. status and consider trickle tube feeds tomorrow. Patient with continued diarrhea which appears to be improving. Renal: Suspect ischemic ATN and cardiorenal failure playing a role. CK normal 10/07/2024. Patient undergoing intermittent hemodialysis. 100 mg Lasix ordered by nephrology today. Will follow urine output. Endocrine: TSH climbing possibly from amiodarone or a euthyroid sick syndrome. Discontinue amiodarone. Consider recheck TSH in the next couple days. Appreciate pharmacy input with assistance of hyperglycemia management. Patient on hydrocortisone 50 mg daily per previous provider. Continue hydrocortisone. ID: Procalcitonin trending down. Antibiotics as above. Heme-onc: No significant issues at present aside from mild anemia. --Prophylaxis VTE: Heparin drip on hold. GI: Pantoprazole Lines: Left IJ, left radial, peripheral, positive [place], right IJ dialysis catheter 10/02/2024 Diet: NPO. OG tube to low intermittent wall suction. I spent 15 minutes reviewing the electronic medical record/relevant imaging, 15 minutes discussing diagnosis and treatment plan with patient/family, and 25 minutes discussing care plan with ancillary staff such as RT/RN/pharmacist/dressmaker helper/PT/OT/other consulting medical services. CRITICAL CARE TIME I have personally spent 64 minutes of critical care time in the direct management of this patient. This is a life/limb threatening event. This includes time spent evaluating patient, direct bedside care, chart review, placing orders, interpretation of diagnostic studies, discussion with consultants, patient, and family members, as well as other required patient management activities. This time is exclusive of all separately billable procedures, and teaching time and separate from and in addition to any other critical care service time. Admission and Anticipated Discharge Date Admission Date: September 29, 2024 Results & Data Results & Data Vital Signs (Past 12 Hours) Vital Signs Temp Pulse Pulse Resp BP Pulse Ox O2 Del Method 10/09/24 14:45 143 H 147/71 H 10/09/24 14:30 150 H 139/69 10/09/24 14:15 155 H 163/78 H 10/09/24 14:00 147 H 140/77 10/09/24 13:38 163 H 10/09/24 13:37 163 H 135/66 10/09/24 13:30 141 H 131/65 10/09/24 13:21 145 H 139/71 10/09/24 13:16 145 H 134/72 10/09/24 13:00 140 H 133/66 10/09/24 12:30 132 H 143/70 H 10/09/24 12:15 138 H 156/71 H 10/09/24 12:00 156 H 154/74 H 10/09/24 12:00 135 H 145/77 H 10/09/24 11:33 113 H 163/73 H 10/09/24 11:03 97 H 162/75 H 10/09/24 10:54 36.6 C 100 H 10/09/24 10:00 97 H 20 91 CPAP 10/09/24 09:57 77 16 93 10/09/24 09:51 86 16 93 CPAP 10/09/24 08:36 86 24 95 Mechanical Vent 10/09/24 08:00 79 24 94 Mechanical Vent 10/09/24 07:52 Mechanical Vent 10/09/24 07:42 10/09/24 07:39 88 146/67 H 10/09/24 07:36 85 24 95 Mechanical Vent 10/09/24 07:27 92 H 23 95 Mechanical Vent 10/09/24 07:21 86 10/09/24 07:10 81 24 95 10/09/24 06:00 81 24 95 10/09/24 05:59 83 24 95 10/09/24 05:56 67 24 95 10/09/24 05:44 72 24 94 10/09/24 05:36 77 24 94 10/09/24 05:30 77 24 94 10/09/24 05:18 90 24 94 10/09/24 05:02 87 24 94 10/09/24 04:47 92 H 24 93 10/09/24 04:32 90 23 94 10/09/24 04:15 101 H 26 H 94 10/09/24 04:06 86 24 95 10/09/24 04:00 10/09/24 03:50 88 24 94 10/09/24 03:48 79 24 95 10/09/24 03:39 96 H 24 95 FiO2 10/09/24 14:45 10/09/24 14:30 10/09/24 14:15 10/09/24 14:00 10/09/24 13:38 10/09/24 13:37 10/09/24 13:30 10/09/24 13:21 10/09/24 13:16 10/09/24 13:00 10/09/24 12:30 10/09/24 12:15 10/09/24 12:00 10/09/24 12:00 10/09/24 11:33 10/09/24 11:03 10/09/24 10:54 10/09/24 10:00 10/09/24 09:57 50 10/09/24 09:51 10/09/24 08:36 50 10/09/24 08:00 50 10/09/24 07:52 50 10/09/24 07:42 50 10/09/24 07:39 10/09/24 07:36 10/09/24 07:27 10/09/24 07:21 10/09/24 07:10 50 10/09/24 06:00 10/09/24 05:59 10/09/24 05:56 10/09/24 05:44 10/09/24 05:36 10/09/24 05:30 10/09/24 05:18 10/09/24 05:02 10/09/24 04:47 10/09/24 04:32 10/09/24 04:15 10/09/24 04:06 10/09/24 04:00 50 10/09/24 03:50 60 10/09/24 03:48 10/09/24 03:39 Coding Diagnoses ARDS (adult respiratory distress syndrome) J80 Pneumonia J18.9 Pleural effusion J90 Acute hypoxemic respiratory failure J96.01 Thrombocytopenia D69.6 Airway intubation performed without difficulty Z78.9 History of tobacco abuse Z87.891 Respiratory failure J96.90 COPD (chronic obstructive pulmonary disease) with emphysema J43.9 Severe sepsis A41.9; R65.20 Acute non-ST elevation myocardial infarction (NSTEMI) I21.4 Alcohol withdrawal delirium F10.931 MRSA pneumonia J15.212 Legionella pneumonia A48.1
--- NOTE | 2024-10-09 15:24 | Pulmonology Progress Note ---
Date of Service October 09, 2024 Assessment & Plan (1) ARDS (adult respiratory distress syndrome): (2) Pneumonia: (3) Pleural effusion: (4) Acute hypoxemic respiratory failure: (5) Thrombocytopenia: (6) Airway intubation performed without difficulty: (7) History of tobacco abuse: (8) Respiratory failure: (9) COPD (chronic obstructive pulmonary disease) with emphysema: (10) Severe sepsis: (11) Acute non-ST elevation myocardial infarction (NSTEMI): (12) Alcohol withdrawal delirium: (13) MRSA pneumonia: (14) Legionella pneumonia: Plan Impression: 64-year-old male with severe obstructive lung disease at baseline admitted with multifocal pneumonia and hypoxemic respiratory failure with concomitant lactic acidosis. Lactate is improved with IV fluids. He is currently on antibiotics. He was placed on noninvasive positive pressure ventilation admitted to the ICU. Neurologic: CT head and MRI brain without acute findings. History of right cerebellar infarct. On thiamine and folic acid due to the reported history of alcohol abuse. Continue minimize sedation is much as possible. RASS goal 0. Cardiovascular: 2D echo 09/30/2024: Moderate LV dysfunction, EF 40%, RV not well-visualized. Repeat echo 10/07/2024 with improved LVEF which was normalized. RV dysfunction noted troponin 10/07/2024 minimally elevated. Initially presented with a type II CA with elevated troponins likely demand ischemia. Holding home antihypertensives. Amiodarone discontinued due to transaminitis and elevation of TSH. Start metoprolol 25 mg every 8 for A-fib RVR. Respiratory: Patient with ARDS secondary to Legionella and MRSA pneumonia which is slowly improving. Bronchoscopy results significant for MRSA and Legionella positive PCR. Extended azithromycin to 14 days for Legionella. Discussed with ID. Will complete 14 days of MRSA coverage with a combination of ceftaroline, vancomycin and now Zyvox. Continue cefepime. Follow-up bronchoscopy cultures. Repeat bronchoscopy performed 10/08/2024 and 10/07/2024. Significant mucous plugging noted bilaterally. Start dornase alpha nebs and twice daily Mucinex. Continue hypertonic saline. Hydrocortisone 50 mg every 6 given intubation status and severe pneumonia. Patient also with a moderate right-sided free-flowing pleural effusion. No signs of loculations. Will continue to monitor and consider thoracentesis. Patient with a reported history of COPD. Patient may require tracheostomy in the next 1 to 2 days if unable to be extubated. GI: LFTs and lipase improving. Liver ultrasound 10/07/2024 with fatty liver infiltration. Gallbladder is mildly dilated. No stones noted. Possible acalculous cholecystitis. Alk phos is improving. Appreciate GI input. Pantoprazole 40 mg twice daily. Pancreatitis appears to be improving. Will restart tube feeds tomorrow if unable to be extubated. Renal: Suspect ischemic ATN and cardiorenal failure playing a role. Patient with uremia. Appreciate nephrology input and intermittent hemodialysis. Endocrine: TSH climbing possibly from amiodarone or a euthyroid sick syndrome. Discontinue amiodarone. Recheck TSH tomorrow. Appreciate pharmacy input with assistance of hyperglycemia management. Patient on hydrocortisone 50 mg daily per previous provider. Continue hydrocortisone. ID: Procalcitonin trending down. Antibiotics as above. Heme-onc: No significant issues at present aside from mild anemia. --Prophylaxis VTE: Continue heparin drip. GI: Pantoprazole Lines: Left IJ, left radial, peripheral, positive De [place] Torre, right IJ dialysis catheter 10/02/2024 Diet: NPO. OG tube to low intermittent wall suction. I spent 15 minutes reviewing the electronic medical record/relevant imaging, 15 minutes discussing diagnosis and treatment plan with patient/family, and 25 minutes discussing care plan with ancillary staff such as RT/RN/pharmacist/rn security/PT/OT/other consulting medical services. CRITICAL CARE TIME I have personally spent 68 minutes of critical care time in the direct management of this patient. This is a life/limb threatening event. This includes time spent evaluating patient, direct bedside care, chart review, placing orders, interpretation of diagnostic studies, discussion with consultants, patient, and family members, as well as other required patient management activities. This time is exclusive of all separately billable procedures, and teaching time and separate from and in addition to any other critical care service time. Admission and Anticipated Discharge Date Admission Date: September 29, 2024 Subjective Patient seen and examined this morning at this afternoon. He has met for awake and alert today, but remains profoundly weak. He has been doing well on spontaneous breathing trial. He has remained very tachycardic with A-fib/RVR. He underwent a session of dialysis today. Required emergent bronc last night due to mucous plugging. Review of Systems Review of Systems: All systems reviewed & are unremarkable except as noted in HPI & below Physical Exam Physical Exam: Constitutional: Patient appears to be of their stated age. Patient is in no apparent distress. Patient is well-developed. Eyes: Pupils are equal round and reactive to light. Conjunctivae are normal. Anicteric sclera. Ears nose, mouth and throat: Endotracheal tube in place size 7.5. Neck: Trachea is midline. Visual inspection is normal. Respiratory: Bilateral rales and crackles. Cardiovascular: Irregular rhythm. Tachycardic. No murmurs. Gastrointestinal: Normal bowel sounds, soft, nontender and nondistended. No hepatosplenomegaly noted. Musculoskeletal: No cyanosis. Patient is able to move all extremities. Strength is 5 out of 5 in the upper and lower extremities. Skin: No rashes, warm dry and intact. Neurologic: Profoundly weak diffusely. Following intermittently Psychiatric: Unable to fully assess. Skin: no rashes, warm and dry Lymphatic: no cervical or axillary lymphadenopathy Results & Data Results & Data Vital Signs (Past 12 Hours) Vital Signs Temp Pulse Pulse Resp BP Pulse Ox O2 Del Method 10/09/24 15:13 151 H 10/09/24 14:45 143 H 147/71 H 10/09/24 14:30 150 H 139/69 10/09/24 14:15 155 H 163/78 H 10/09/24 14:00 147 H 140/77 10/09/24 13:38 163 H 10/09/24 13:37 163 H 135/66 10/09/24 13:30 141 H 131/65 10/09/24 13:21 145 H 139/71 10/09/24 13:16 145 H 134/72 10/09/24 13:00 140 H 133/66 10/09/24 12:30 132 H 143/70 H 10/09/24 12:15 138 H 156/71 H 10/09/24 12:00 156 H 154/74 H 10/09/24 12:00 135 H 145/77 H 10/09/24 11:33 113 H 163/73 H 10/09/24 11:03 97 H 162/75 H 10/09/24 10:54 36.6 C 100 H 10/09/24 10:00 97 H 20 91 CPAP 10/09/24 09:57 77 16 93 10/09/24 09:51 86 16 93 CPAP 10/09/24 08:36 86 24 95 Mechanical Vent 10/09/24 08:00 79 24 94 Mechanical Vent 10/09/24 07:52 Mechanical Vent 10/09/24 07:42 10/09/24 07:39 88 146/67 H 10/09/24 07:36 85 24 95 Mechanical Vent 10/09/24 07:27 92 H 23 95 Mechanical Vent 10/09/24 07:21 86 10/09/24 07:10 81 24 95 10/09/24 06:00 81 24 95 10/09/24 05:59 83 24 95 10/09/24 05:56 67 24 95 10/09/24 05:44 72 24 94 10/09/24 05:36 77 24 94 10/09/24 05:30 77 24 94 10/09/24 05:18 90 24 94 10/09/24 05:02 87 24 94 10/09/24 04:47 92 H 24 93 10/09/24 04:32 90 23 94 10/09/24 04:15 101 H 26 H 94 10/09/24 04:06 86 24 95 10/09/24 04:00 10/09/24 03:50 88 24 94 10/09/24 03:48 79 24 95 10/09/24 03:39 96 H 24 95 FiO2 10/09/24 15:13 10/09/24 14:45 10/09/24 14:30 10/09/24 14:15 10/09/24 14:00 10/09/24 13:38 10/09/24 13:37 10/09/24 13:30 10/09/24 13:21 10/09/24 13:16 10/09/24 13:00 10/09/24 12:30 10/09/24 12:15 10/09/24 12:00 10/09/24 12:00 10/09/24 11:33 10/09/24 11:03 10/09/24 10:54 10/09/24 10:00 10/09/24 09:57 50 10/09/24 09:51 10/09/24 08:36 50 10/09/24 08:00 50 10/09/24 07:52 50 10/09/24 07:42 50 10/09/24 07:39 10/09/24 07:36 10/09/24 07:27 10/09/24 07:21 10/09/24 07:10 50 10/09/24 06:00 10/09/24 05:59 10/09/24 05:56 10/09/24 05:44 10/09/24 05:36 10/09/24 05:30 10/09/24 05:18 10/09/24 05:02 10/09/24 04:47 10/09/24 04:32 10/09/24 04:15 10/09/24 04:06 10/09/24 04:00 50 10/09/24 03:50 60 10/09/24 03:48 10/09/24 03:39 PG Care Time/CCT Total # of Minutes Spent Total Time Spent with Patient: Total time spent is greater than 50% in coordination of care (as documented) at patient's floor/unit and/or counseling patient: Coding Level of Care Code 03346 CRITICAL CARE 1ST 30-74M Diagnoses ARDS (adult respiratory distress syndrome) J80 Pneumonia J18.9 Pleural effusion J90 Acute hypoxemic respiratory failure J96.01 Thrombocytopenia D69.6 Airway intubation performed without difficulty Z78.9 History of tobacco abuse Z87.891 Respiratory failure J96.90 COPD (chronic obstructive pulmonary disease) with emphysema J43.9 Severe sepsis A41.9; R65.20 Acute non-ST elevation myocardial infarction (NSTEMI) I21.4 Alcohol withdrawal delirium F10.931 MRSA pneumonia J15.212 Legionella pneumonia A48.1
[2024-10-09] MEDS: METOPROLOL TARTRATE 25 MG TAB PO SCH (16:39)
[2024-10-09] MEDS: HEPARIN 25000 UNIT/500 ML D5W 25,000 UNITS/500 ML BAG IV SCH (16:40)
[2024-10-09] MEDS: DORNASE ALFA 2.5 ML AMP INH SCH (19:36)
[2024-10-09] MEDS: guaiFENesin 600 MG TABCR PO SCH (20:34)
[2024-10-09] MEDS: PHENYLEPHRINE/NSS 25 MG/250 ML BAG IV SCH (23:20)
[2024-10-09 23:23] LABS: ANTI-Xa, UFH(UnfractionatedHep 0.37 IU/ml (0.3-0.7)
[2024-10-10 05:14] LABS: Hematocrit (blood only) 31.7 % (42.0-52.0); Hemoglobin 10.9 g/dl (14.0-18.0); Mean Corpuscular Hemoglobin 31.6 pg (25.0-34.0); Mean Corpuscular Volume 91.9 fL (80.0-100.0); Platelet Count 188 K/uL (130-400); RDW Standard Deviation 46.9 fL (36.4-46.3); Red Blood Count 3.45 M/uL (4.70-6.10); White Blood Count 10.88 K/ul (4.8-10.8)
[2024-10-10 05:32] LABS: Alanine Aminotransferase 70.0 U/L (7-52); Alkaline Phosphatase 160.0 U/L (34-104); Anion Gap 13.0 (3-11); Bilirubin,Total 0.6 mg/dl (0.2-1.0); Blood Urea Nitrogen 85.0 mg/dl (6-23); Calcium 8.1 mg/dl (8.6-10.3); Carbon Dioxide 22.0 mmol/L (21-32); Chloride 102.0 mmol/L (98-107); Creatinine Clr Calc Pharmacy 35.2 ml/min; Glucose 133.0 mg/dl (70-99(Fasting)); Magnesium 1.9 mg/dl (1.7-2.4); Potassium 3.5 mmol/L (3.5-5.1); Sodium 137.0 mmol/L (136-145); Total Protein 5.6 gm/dl (6.0-8.3)
[2024-10-10 05:38] LABS: ANTI-Xa, UFH(UnfractionatedHep 0.44 IU/ml (0.3-0.7)
[2024-10-10 05:59] LABS: Thyroid Stimulating Hormone 3.597 uIu/ml (0.300-4.500)
--- NOTE | 2024-10-10 08:16 | XRay Report ---
XR chest 1V portable CLINICAL HISTORY: eval for possible extubation COMPARISON STUDY: 10/09/2024. FINDINGS: Endotracheal tube tip is stable at the thoracic inlet. Nasogastric tube tip is off the fiel d of view inferiorly. Bilateral central catheters are stable. There is stranding opacity at the right mid and lower lung with blunting of the right costophrenic angle, improved. No pneumothorax. IMPRESSION: Stranding opacity at the right mid and lower lung with blunting of the right costophreni c angle, improved. ACT 112: Negative or not required by law. Electronically signed by: Herman Brush M.D. 10/10/2024 8:13 AM
--- NOTE | 2024-10-10 08:36 | Nephrology Progress Note ---
Date of Service October 10, 2024 Assessment & Plan (1) NAOMY (acute kidney injury): Plan: * NAOMY - c/w ischemic ATN. 1st HD 10/02 * UO 2.6 L last 24 hours. I&O's were matched. 3.2 L UF obtained w/ HD * POC discussed w/ ICU team this am. Weaning from mechanical ventilator is being performed. Will schedule IV diuretic therapy and monitor UO, BMP * Start furosemide 80 mg IV BID * Serum PO4 is elevated. On renal enteral feeding. Ca-acetate 667 mg BID added 10/06/24. Monitor serum PO4 * Repeat BMP in am (2) Severe sepsis with septic shock: Plan: * Clinically improving. Remains on azithromycin and linezolid. ID following. BAL --> MRSA. Legionella +. (3) Acute hypoxemic respiratory failure: Plan: * Remains ventilator dependent. UF as tolerated. Admission and Anticipated Discharge Date Admission Date: September 29, 2024 Subjective Mr. Moyer was evaluated in the ICU this morning. He remains alert, mechanically ventilated, follows simple one step commands. Dialysis was completed yesterday afternoon. 3.2 L UF obtained Review of Systems Review of Systems: Unobtainable due to endotracheal tube Physical Exam Constitutional: + ill appearing Eyes: + anicteric sclerae ENMT: external ear and nose normal, oropharynx normal Neck: trachea midline, no thyromegaly Cardiovascular: Rate/Rhythm: + tachycardic Extremities: + edema (2+ dependent edema of the arms and legs) Gastrointestinal (Abdomen): normal bowel sounds, soft, nontender, no hepatos plenomegaly Musculoskeletal: Extremities: no cyanosis and no clubbing Skin: no rashes, warm and dry Results & Data Vital Signs (Past 12 Hours) Vital Signs Temp Pulse Resp Pulse Ox O2 Del Method FiO2 10/10/24 07:30 86 24 95 50 10/10/24 05:27 79 24 95 Mechanical Vent 50 10/10/24 04:54 74 24 94 Mechanical Vent 50 10/10/24 04:45 81 24 94 Mechanical Vent 50 10/10/24 04:12 85 24 94 Mechanical Vent 50 10/10/24 03:46 50 10/10/24 03:30 79 25 H 95 50 10/10/24 03:00 90 24 94 Mechanical Vent 50 10/10/24 02:36 88 24 95 Mechanical Vent 50 10/10/24 01:06 80 24 94 Mechanical Vent 50 10/10/24 00:00 86 24 97 Mechanical Vent 50 10/10/24 00:00 50 10/09/24 23:00 87 24 95 Mechanical Vent 50 10/09/24 22:57 87 24 95 50 10/09/24 22:55 82 10/09/24 22:03 109 H 23 95 Mechanical Vent 50 10/09/24 22:01 Mechanical Vent 50 10/09/24 21:03 36.8 C 117 H 24 94 Mechanical Vent 50 Laboratory Results Laboratory Results - last 24 hr 10/08/24 10/09/24 10/09/24 03:40 13:34 17:59 WBC RBC Hgb Hct MCV MCH MCHC RDW Std Deviation RDW Coeff of [place] Plt Count MPV Heparin Anti-Xa, Unfract Sodium Potassium Chloride Carbon Dioxide Anion Gap BUN Creatinine Est Cr Clr Drug Dosing eGFR BUN/Creatinine Ratio Glucose POC Glucose 120 H 163 H Calcium Phosphorus Magnesium Total Bilirubin Direct Bilirubin AST ALT Alkaline Phosphatase Total Protein Albumin TSH KEIRA Screen POSITIVE A 10/09/24 10/09/24 10/10/24 20:34 22:20 00:41 WBC RBC Hgb Hct MCV MCH MCHC RDW Std Deviation RDW Coeff of [place] Plt Count MPV Heparin Anti-Xa, Unfract 0.37 Sodium Potassium Chloride Carbon Dioxide Anion Gap BUN Creatinine Est Cr Clr Drug Dosing eGFR BUN/Creatinine Ratio Glucose POC Glucose 141 H 133 H Calcium Phosphorus Magnesium Total Bilirubin Direct Bilirubin AST ALT Alkaline Phosphatase Total Protein Albumin TSH KEIRA Screen 10/10/24 10/10/24 10/10/24 03:37 04:56 08:26 WBC 10.88 H RBC 3.45 L Hgb 10.9 L Hct 31.7 L MCV 91.9 MCH 31.6 MCHC 34.4 RDW Std Deviation 46.9 H RDW Coeff of [place] 13.9 Plt Count 188 MPV 11.0 Heparin Anti-Xa, Unfract 0.44 Sodium 137 Potassium 3.5 D Chloride 102 Carbon Dioxide 22 Anion Gap 13 H BUN 85 H Creatinine 2.90 H D Est Cr Clr Drug Dosing 35.2 eGFR 23.57 BUN/Creatinine Ratio 29.3 H Glucose 133 H POC Glucose 125 H 119 H Calcium 8.1 L Phosphorus 7.1 H Magnesium 1.9 Total Bilirubin 0.6 Direct Bilirubin 0.2 AST 43 H ALT 70 H Alkaline Phosphatase 160 H Total Protein 5.6 L Albumin 2.2 L TSH 3.597 KEIRA Screen PG Care Time/CCT Total # of Minutes Spent Total Time Spent with Patient: Total time spent is greater than 50% in coordination of care (as documented) at patient's floor/unit and/or counseling patient: Coding Level of Care Code 46994 SUB INP/OBS CARE 3/50MIN Diagnoses NAOMY (acute kidney injury) N17.9 Severe sepsis with septic shock A41.9; R65.21 Acute hypoxemic respiratory failure J96.01
[2024-10-10] MEDS ORDERED: AMIODARONE 200 MG TAB PO SCH (09:00)
--- NOTE | 2024-10-10 09:02 | Hospitalist Progress Note ---
Date of Service October 10, 2024 Assessment & Plan (1) Respiratory failure: Plan: Due to MRSA and Legionella pneumonia Bronchial lavage growing MRSA Urine Legionella positive Currently on cefepime, linezolid, Flagyl Consulted infectious disease. Remains intubated bronchoscopy showing significant mucus plugging, cleared out - repeat bronchoscopy still with mucus plugging (2) COPD (chronic obstructive pulmonary disease) with emphysema: Plan: Budesonide twice daily Solu-medrol (3) Atrial fibrillation: Plan: -amiodarone d/c'd - heparin drip (4) NAOMY (acute kidney injury): Plan: ATN due to septic shock Creatinine still rising Still oliguric/anuric Nephrology involved - HD as per nephrology Patient will likely need a permacath (5) Hypertension: Plan: -losartan on hold 2nd to hypotension (6) Acute hyponatremia: Plan: -Na+ 137 (7) Acute non-ST elevation myocardial infarction (NSTEMI): Plan: Most likely demand ischemia due to hypoxia and tachycardia. (8) Alcohol withdrawal delirium: Plan: Currently on propofol and fentanyl Thiamine and folic acid Plan This is a 64-year-old morbidly obese male with a history of COPD, hypertension who presents with severe respiratory distress, now on BiPAP. Chest x-ray showed pneumonia. He was given DuoNebs, steroids, ceftriaxone in the emergency room. Labs significant for lactic acidosis of 5, anion gap metabolic acidosis, hyponatremia, hypokalemia, elevated troponin, elevated procalcitonin. His blood pressure dropped while in the ER. He is being admitted to the ICU with acute hypoxic respiratory failure, pneumonia with severe sepsis Admission and Anticipated Discharge Date Admission Date: September 29, 2024 Subjective Pt remains intubated Review of Systems Review of Systems: Intubated, sedated Physical Exam Physical Exam: GENERAL APPEARANCE Intubated EYES lids/conjunctiva normal. EARS/NOSE/THROAT Mucous membranes moist, nares normal, lips/teeth normal uvula midline without oral pharyngeal erythema, exudate or swelling TMs normal bilaterally. No lymphangitis/lymphedema. HEAD/NECK ET tube in placed RESPIRATORY respiratory effort normal, speaks in full sentences, no tripod position, no accessory muscle use. Lungs clear to auscultation without rhonchi, wheezes, rales CARDIAC Regular rate and rhythm, no edema. ABDOMINAL Soft, ND/NT. No evidence of fluid wave. No pulsatile masses on exam, rebound tenderness, Platt sign or pain over Mcburney's point. MUSCLES/EXTREMITIES No abnormal range of motion, no swelling. SKIN Warm, pink and dry. No rashes, dermatoses, petechiae or lesions. NEUROLOGICAL Sedated PSYCH Normal mood and affect. Judgement/competence is appropriate Results & Data Results & Data Vital Signs (Past 12 Hours) Vital Signs Temp Pulse Resp Pulse Ox O2 Del Method FiO2 10/10/24 07:30 86 24 95 50 10/10/24 05:27 79 24 95 Mechanical Vent 50 10/10/24 04:54 74 24 94 Mechanical Vent 50 10/10/24 04:45 81 24 94 Mechanical Vent 50 10/10/24 04:12 85 24 94 Mechanical Vent 50 10/10/24 03:46 50 10/10/24 03:30 79 25 H 95 50 10/10/24 03:00 90 24 94 Mechanical Vent 50 10/10/24 02:36 88 24 95 Mechanical Vent 50 10/10/24 01:06 80 24 94 Mechanical Vent 50 10/10/24 00:00 86 24 97 Mechanical Vent 50 10/10/24 00:00 50 10/09/24 23:00 87 24 95 Mechanical Vent 50 10/09/24 22:57 87 24 95 50 10/09/24 22:55 82 10/09/24 22:03 109 H 23 95 Mechanical Vent 50 10/09/24 22:01 Mechanical Vent 50 10/09/24 21:03 36.8 C 117 H 24 94 Mechanical Vent 50 PG Care Time/CCT Total # of Minutes Spent Total Time Spent with Patient: Total time spent is greater than 50% in coordination of care (as documented) at patient's floor/unit and/or counseling patient: Coding Level of Care Code 52942 SUB INP/OBS CARE 2/35MIN Diagnoses Respiratory failure J96.90 COPD (chronic obstructive pulmonary disease) with emphysema J43.9 Atrial fibrillation I48.91 NAOMY (acute kidney injury) N17.9 Hypertension I10 Acute hyponatremia E87.1 Acute non-ST elevation myocardial infarction (NSTEMI) I21.4 Alcohol withdrawal delirium F10.931
[2024-10-10 09:42] LABS: iSTAT Art Bld Gas Base Excess -5.0 meg/L (-9-1.8)
[2024-10-10] MEDS: FUROSEMIDE 40 MG/4 ML VIAL IV SCH (09:55)
--- NOTE | 2024-10-10 10:11 | Critical Care Progress Note ---
Date of Service October 10, 2024 Assessment & Plan (1) ARDS (adult respiratory distress syndrome): (2) Pneumonia: (3) Pleural effusion: (4) Acute hypoxemic respiratory failure: (5) Thrombocytopenia: (6) Airway intubation performed without difficulty: (7) History of tobacco abuse: (8) Respiratory failure: (9) COPD (chronic obstructive pulmonary disease) with emphysema: (10) Severe sepsis: (11) Acute non-ST elevation myocardial infarction (NSTEMI): (12) Alcohol withdrawal delirium: (13) MRSA pneumonia: (14) Legionella pneumonia: Plan Impression: 64-year-old male with severe obstructive lung disease at baseline admitted with multifocal pneumonia and hypoxemic respiratory failure with concomitant lactic acidosis. Lactate is improved with IV fluids. He is currently on antibiotics. He was placed on noninvasive positive pressure ventilation admitted to the ICU. Neurologic: CT head and MRI brain without acute findings. History of right cerebellar infarct. On thiamine and folic acid due to the reported history of alcohol abuse. Continue minimize sedation is much as possible. RASS goal 0. On precedex for sedation. Cardiovascular: 2D echo 09/30/2024: Moderate LV dysfunction, EF 40%, RV not well-visualized. Repeat echo 10/07/2024 with improved LVEF which was normalized. RV dysfunction noted troponin 10/07/2024 minimally elevated. Initially presented with a type II [place] with elevated troponins likely demand ischemia. Holding home antihypertensives. Amiodarone discontinued due to transaminitis and elevation of TSH. Start metoprolol 25 mg every 8 for A-fib RVR. Respiratory: Patient with ARDS secondary to Legionella and MRSA pneumonia which is slowly improving. Bronchoscopy results significant for MRSA and Legionella positive PCR. Extended azithromycin to 14 days for Legionella. Discussed with ID. Will complete 14 days of MRSA coverage with a combination of ceftaroline, vancomycin and now Zyvox. Discontinue cefepime and flagyl. Follow-up bronchoscopy cultures showing only NRF. Repeat bronchoscopy performed 10/08/2024 and 10/07/2024. Significant mucous plugging noted bilaterally. Start dornase alpha nebs and twice daily Mucinex. Continue hypertonic saline. Hydrocortisone weaned 50 mg every q12h given intubation status and severe pneumonia. Patient also with a moderate right-sided free-flowing pleural effusion. No sign s of loculations. Will continue to monitor and consider thoracentesis. Patient with a reported history of COPD. Patient may require tracheostomy in the next 1 to 2 days if unable to be extubated. GI: LFTs and lipase improving. Liver ultrasound 10/07/2024 with fatty liver infiltration. Gallbladder is mildly dilated. No stones noted. Possible acalculous cholecystitis. Alk phos is improving. Appreciate GI input. Pantoprazole 40 mg daily. Pancreatitis appears to be improving. Will restart tube feeds tomorrow if unable to be extubated. Renal: Suspect ischemic ATN and cardiorenal failure playing a role. Patient with uremia. Appreciate nephrology input and intermittent hemodialysis. Endocrine: TSH down this am 3.57. Elevation was possibly from amiodarone or a euthyroid sick syndrome. Discontinue amiodarone. Appreciate pharmacy input with assistance of hyperglycemia management. Patient on hydrocortisone 50 mg daily per previous provider. Continue hydrocortisone wean to q12h. ID: Procalcitonin trending down. Antibiotics deescalated to linezlid Heme-onc: No significant issues at present aside from mild anemia. --Prophylaxis VTE: Heparin drip held this am for possible trach. GI: Pantoprazole Lines: Left IJ, left radial, peripheral, positive [place] Torre, right IJ dialysis catheter 10/02/2024 Diet: NPO. OG tube to low intermittent wall suction. CRITICAL CARE TIME I have personally spent 50 minutes of critical care time in the direct management of this patient. This is a life/limb threatening event. This includes time spent evaluating patient, direct bedside care, chart review, placing orders, interpretation of diagnostic studies, discussion with consultants, patient, and family members, as well as other required patient management activities. This time is exclusive of all separately billable procedures, and teaching time and separate from and in addition to any other critical care service time. Admission and Anticipated Discharge Date Admission Date: September 29, 2024 Supervising Physician Co-Signing Physician Notes I have personally evaluated and examined this patient. I agree with assessment and plan of Yudelka KOO. Had telephone discussion with patient's regarding goals of care and treatment options. We discussed risks and benefits of trial of extubation v ersus proceeding with tracheostomy. Currently the patient has marginal extubation parameters his neph at best was -20, vital capacity is poor, RSBI is acceptable at 50. Of note he has had numerous episodes of mucoid impaction, I feel given the underlying COPD and frequent mucoid impaction his success of straight liberation from the ventilator would be lower and placing him at risk for need of reintubation emergently. In discussing treatment goals with the she felt taking a safer approach to liberate from the ventilator and minimize sedating medications would be the optimal approach. We discussed complications such as bleeding malpositioning need for additional procedures. She would like to proceed with tracheostomy at this time. Subjective Patient off sedation with improved neurological exam. Chest x-ray shows reduction in right pleural effusion. No plan for dialysis today. Will start scheduled lasix and nephrology will continue to follow for dialysis. Patient tachypneic with lower SpO2 will change back to rate and consult for trach as patient's respiratory status remains tenuous with high probability for reintubation. Will discuss with patient's regarding plan of care. Review of Systems Review of Systems: Unobtainable due to endotracheal tube and Unobtainable due to reduced consciousness Physical Exam Physical Exam: Constitutional: Patient appears to be of their stated age. Patient is in no apparent distress. Patient is well-developed. Eyes: Pupils are equal round and reactive to light. Conjunctivae are normal. Anicteric sclera. Ears nose, mouth and throat: Endotracheal tube in place size 7.5. Neck: Trachea is midline. Visual inspection is normal. Respiratory: Bilateral rales and crackles. Cardiovascular: Irregular rhythm. Tachycardic. No murmurs. Gastrointestinal: Normal bowel sounds, soft, nontender and nondistended. No hepatosplenomegaly noted. Musculoskeletal: No cyanosis. Patient is able to move all extremities. Str ength is 5 out of 5 in the upper and lower extremities. Skin: No rashes, warm dry and intact. Neurologic: Profoundly weak diffusely. Following intermittently Psychiatric: Unable to fully assess. Skin: no rashes, warm and dry Lymphatic: no cervical or axillary lymphadenopathy Results & Data Results & Data Vital Signs (Past 12 Hours) Vital Signs Temp Pulse Resp Pulse Ox O2 Del Method FiO2 10/10/24 09:18 104 H 10/10/24 09:06 118 H 24 93 10/10/24 08:59 37.0 C 10/10/24 08:00 104 H 19 95 10/10/24 07:30 86 24 95 50 10/10/24 07:00 82 25 H 95 10/10/24 05:27 79 24 95 Mechanical Vent 50 07/31/25 04:54 74 24 94 Mechanical Vent 50 10/10/24 04:45 81 24 94 Mechanical Vent 50 10/10/24 04:12 85 24 94 Mechanical Vent 50 10/10/24 03:46 50 10/10/24 03:30 79 25 H 95 50 10/10/24 03:00 90 24 94 Mechanical Vent 50 10/10/24 02:36 88 24 95 Mechanical Vent 50 10/10/24 01:06 80 24 94 Mechanical Vent 50 10/10/24 00:00 86 24 97 Mechanical Vent 50 10/10/24 00:00 50 10/09/24 23:00 87 24 95 Mechanical Vent 50 10/09/24 22:57 87 24 95 50 10/09/24 22:55 82 Critical Care Results & Data Vital Signs (Past 12 Hours) Vital Signs Temp Pulse Resp Pulse Ox O2 Del Method FiO2 10/10/24 09:18 104 H 10/10/24 09:06 118 H 24 93 10/10/24 08:59 37.0 C 10/10/24 08:00 104 H 19 95 10/10/24 07:30 86 24 95 50 10/10/24 07:00 82 25 H 95 10/10/24 05:27 79 24 95 Mechanical Vent 50 10/10/24 04:54 74 24 94 Mechanical Vent 50 10/10/24 04:45 81 24 94 Mechanical Vent 50 10/10/24 04:12 85 24 94 Mechanical Vent 50 10/10/24 03:46 50 10/10/24 03:30 79 25 H 95 50 10/10/24 03:00 90 24 94 Mechanical Vent 50 10/10/24 02:36 88 24 95 Mechanical Vent 50 10/10/24 01:06 80 24 94 Mechanical Vent 50 10/10/24 00:00 86 24 97 Mechanical Vent 50 10/10/24 00:00 50 10/09/24 23:00 87 24 95 Mechanical Vent 50 10/09/24 22:57 87 24 95 50 10/09/24 22:55 82 Lab & Micro Results (Past 24 Hours) RBC 3.45 M/uL (4.70-6.10) L 10/10/24 WBC 10.88 K/ul (4.8-10.8) H 10/10/24 Hgb 10.9 g/dl (14.0-18.0) L 10/10/24 Hct 31.7 % (42.0-52.0) L 10/10/24 MCV 91.9 fL (80.0-100.0) 10/10/24 MCH 31.6 pg (25.0-34.0) 10/10/24 MCHC 34.4 g/dL (32.0-36.0) 10/10/24 RDW Standard Deviation 46.9 fL (36.4-46.3) H 10/10/24 RDW Coefficient of Variation 13.9 % (11.5-14.5) 10/10/24 Plt Count 188 K/uL (130-400) 10/10/24 MPV 11.0 fL (9.4-12.4) 10/10/24 Na 137 mmol/L (136-145) 10/10/24 K 3.5 mmol/L (3.5-5.1) 10/10/24 Cl 102 mmol/L (98-107) 10/10/24 CO2 22 mmol/L (21-32) 10/10/24 Anion Gap 13 (3-11) H 10/10/24 BUN 85 mg/dl (6-23) H 10/10/24 Creatinine 2.90 mg/dl (0.6-1.4) H 10/10/24 BUN/Creatinine Ratio 29.3 (10-20) H 10/10/24 Glu 133 mg/dl (70-99(Fasting)) H 10/10/24 Ca 8.1 mg/dl (8.6-10.3) L 10/10/24 Phosphorus Level 7.1 mg/dl (2.5-4.9) H 10/10/24 Total Bilirubin 0.6 mg/dl (0.2-1.0) 10/10/24 Direct Bilirubin 0.2 mg/dl (0-0.2) 10/10/24 AST 43 U/L (13-39) H 10/10/24 ALT 70 U/L (7-52) H 10/10/24 Alkaline Phosphatase 160 U/L (34-104) H 10/10/24 TP 5.6 gm/dl (6.0-8.3) L 10/10/24 Albumin 2.2 gm/dl (3.4-5.0) L 10/10/24 Mg 1.9 mg/dl (1.7-2.4) 10/10/24 04:56 Calcium Level 8.1 mg/dl (8.6-10.3) L 10/10/24 04:56 Microbiology 10/05/24 08:44 Aerobic Blood Culture - Final Blood No growth in Aerobic bottle after 5 days. Anaerobic Blood Culture - Final No growth in Anaerobic bottle after 5 days. 10/05/24 08:54 Aerobic Blood Culture - Final Blood No growth in Aerobic bottle after 5 days. Anaerobic Blood Culture - Final 10/07/24 13:30 Gram Stain - Final Ba Lavage,Right Lower Lobe Bronchial Culture - Final Scant normal anne. Diagnostic Findings (Past 24 Hours) Chest X-Ray 10/10/24 07:50 XR chest 1V portable CLINICAL HISTORY: eval for possible extubation COMPARISON STUDY: 10/09/2024. FINDINGS: Endotracheal tube tip is stable at the thoracic inlet. Nasogastric tube tip is off the field of view inferiorly. Bilateral central catheters are stable. There is stranding opacity at the right mid and lower lung with blunting of the right costophrenic angle, improved. No pneumothorax. IMPRESSION: Stranding opacity at the right mid and lower lung with blunting of the right costophrenic angle, improved. ACT 112: Negative or not required by law. Electronically signed by: Herman Brush M.D. 10/10/2024 8:13 AM I & O Totals 24 Hours 10/09/24 10/10/24 10/11/24 06:59 06:59 06:59 Intake Total 3039.826 / 3039.826 2748.536 / 2748.536 86.45 / 86.45 Output Total 3050 / 3050 2640 / 2640 200 / 200 Balance -10.174 / -10.174 108.536 / 108.536 -113.55 / -113.55 Cumulative 09/29/24 10:48 thru 10/10/24 10:02 Intake Total 55985.5433 Output Total 70733 Balance 00581.5433 RT Ventilator Mngmt (Last Documented) Ventilator Ordered Settings Ventilator Support Mode Assist Control 10/10/24 07:30 Respiratory Rate 24 10/10/24 09:06 Ventilator Tidal Volume 440 10/10/24 07:30 Setting Minute Ventilation 11.5 10/10/24 07:30 Ventilator Positive Pressure 6 10/09/24 19:40 Support Setting Positive End Expiratory 8.0 10/10/24 07:30 Pressure Fraction of Inspired Oxygen 50 10/10/24 07:30 Machine Comment titrated to 50% at this time 10/09/24 03:50 Ventilator - PT Measurements Respiratory Rate 24 Exhaled Tidal Volume 540 Minute Ventilation 11.5 Peak Inspiratory Airway 23 Pressure Plateau Pressure 16.5 Respiratory Cycle Inspiratory: 1:3 Expiratory Ratio Inspiratory Phase Time 0.50 End-Tidal CO2 25 Static Lung Compliance 63.53 Dynamic Lung Compliance 36.00 Normal Static Lung Compliance 48.00 Patient Measurements Comment Patient placed back on full vent support per Joyce PERSAUD Coding Level of Care Code 98392 CRITICAL CARE 1ST 30-74M Diagnoses ARDS (adult respiratory distress syndrome) J80 Pneumonia J18.9 Pleural effusion J90 Acute hypoxemic respiratory failure J96.01 Thrombocytopenia D69.6 Airway intubation performed without difficulty Z78.9 History of tobacco abuse Z87.891 Respiratory failure J96.90 COPD (chronic obstructive pulmonary disease) with emphysema J43.9 Severe sepsis A41.9; R65.20 Acute non-ST elevation myocardial infarction (NSTEMI) I21.4 Alcohol withdrawal delirium F10.931 MRSA pneumonia J15.212 Legionella pneumonia A48.1
--- NOTE | 2024-10-10 10:21 | Infectious Disease Progress Nt ---
Date of Service October 10, 2024 Assessment & Plan (1) Pneumonia: (2) Acute hypoxemic respiratory failure: (3) NAOMY (acute kidney injury): Plan Problems: #MRSA and Legionella pneumonia #Acute hypoxic respiratory failure s/p intubation 09/30 #NAOMY Micro: 10/07 RLL BAL cx: scant normal anne 10/05 BCx x2: NGTD 10/05 C diff neg 10/02 R main stem BAL Bronchial cx: NG. GS no org Fungal cx: NGTD AFB smear neg, cx pending Legionella PCR: pending 09/30 RML BAL Bronchial cx: MRSA Fungal cx: NGTD AFB smear neg, cx NGTD Histo/Blasto PCR: neg Cocci PCR: neg Legionella PCR: positive Flu, RSV PCR: pending 09/29 Sputum cx: moderate normal anne 09/29 MRSA nares: positive 09/29 BCx x2: NGTD 09/29 Urine Legionella Ag: detected Abx: Linezolid 10/08 - present Cefepime 10/07 - present Metronidazole 10/07 - present Azithro 09/29 - present Vanc 09/29 - 10/01, 10/07 Ceftaroline 10/01 - 10/06 Pip-tazo 10/01 - 10/02 Ceftriaxone 09/29 - 09/30 64 yo M with COPD, HTN who presented on 09/29 with shortness of breath, admitted with AHRF, MRSA and Legionella pneumonia. On presentation, he was afebrile, HR 165, BP 116/89 (later dropped as low as 88/64), RR 34, requiring BiPAP. Labs showed WBC 10.41, plt 121, Na 124, K 2.3, Cr 1.16, AST 86, Tbili 1.2, lactate 5.4, procal 4.49. CTA chest with no PE, and RUL and RML pneumonia. He was started on vanc, ceftriaxone, azithromycin, solumedrol and admitted to the ICU. He was intubated on 09/30 due to respiratory failure. A bronchoscopy was performed, which showed a moderate amount of brown-red secretions in the R main which was suctioned out. RML BAL cx grew MRSA, and BAL Legionella PCR positive. Urine Legionella Ag returned positive. Overnight on 10/01, pt went into afib with RVR, required norepi, vasopressin, phenylephrine. Was persistently febrile. WBC increased to 19.28. Ceftriaxone was changed to Zosyn. Vanc was changed to ceftaroline. Kidney function worsening, with Cr up to 3.15 on 10/02. On phenylephrine and vasopressin. Repeat bronchoscopy done 10/02, which showed moderate amount of clear brown secretions in the R main going into the RLL. 10/02 BAL culture NG. Respiratory status worsening 10/07, so repeat bronchoscopy done which showed diffuse thick yellow and batista secretions bilaterally, significant mucous plugging of RLL and RUL. Ceftaroline changed to vanc, cefepime, metronidazole due to concern for VAP. Also continued on azithro for Legionella. 10/07 BAL cx with scant normal anne.. Recommendations: - Continue azithromycin 500 mg IV q24h for Legionella pneumonia to complete 14 day course through 10/12/24 - Continue linezolid 600 mg q12h for MRSA pneumonia to complete a 14 day course through 10/12/24 - Can likely discontinue cefepime and metronidazole as BAL cultures have not grown other organisms Will continue to follow Admission and Anticipated Discharge Date Admission Date: September 29, 2024 Subjective This patient recommendation is based on a telemedicine consult request which was completed asynchronously through chart review and information provided by the primary physician. The patient was not seen or examined today. The evaluation is consultative in nature and all patient care and treatment decisions can either be accepted or rejected by the patient's primary hospital-based treating physician using their own independent medical judgment for their patient. Time Spent Reviewing Chart: 11 - 20 minutes Afebrile WBC 14.75 --> 10.88 Remains intubated Results & Data Vital Signs (Past 12 Hours) Vital Signs Temp Pulse Resp Pulse Ox O2 Del Method FiO2 10/10/24 09:18 104 H 10/10/24 09:06 118 H 24 93 10/10/24 08:59 37.0 C 10/10/24 08:00 104 H 19 95 10/10/24 07:30 86 24 95 50 10/10/24 07:00 82 25 H 95 10/10/24 05:27 79 24 95 Mechanical Vent 50 10/10/24 04:54 74 24 94 Mechanical Vent 50 10/10/24 04:45 81 24 94 Mechanical Vent 50 10/10/24 04:12 85 24 94 Mechanical Vent 50 10/10/24 03:46 50 10/10/24 03:30 79 25 H 95 50 10/10/24 03:00 90 24 94 Mechanical Vent 50 10/10/24 02:36 88 24 95 Mechanical Vent 50 10/10/24 01:06 80 24 94 Mechanical Vent 50 10/10/24 00:00 86 24 97 Mechanical Vent 50 10/10/24 00:00 50 10/09/24 23:00 87 24 95 Mechanical Vent 50 10/09/24 22:57 87 24 95 50 10/09/24 22:55 82 Laboratory Results Short CBC 10/10/24 Range/Units 04:56 WBC 10.88 H (4.8-10.8) K/ul Hgb 10.9 L (14.0-18.0) g/dl Hct 31.7 L (42.0-52.0) % Plt Count 188 (130-400) K/uL BMP 10/10/24 04:56 Sodium 137 Potassium 3.5 D Chloride 102 Carbon Dioxide 22 BUN 85 H Creatinine 2.90 H D Glucose 133 H Calcium 8.1 L Liver Function 10/10/24 Range/Units 04:56 Total Bilirubin 0.6 (0.2-1.0) mg/dl Direct Bilirubin 0.2 (0-0.2) mg/dl AST 43 H (13-39) U/L ALT 70 H (7-52) U/L Alkaline Phosphatase 160 H (34-104) U/L Albumin 2.2 L (3.4-5.0) gm/dl Diagnostic Findings Chest X-Ray 10/10/24 07:50 XR chest 1V portable CLINICAL HISTORY: eval for possible extubation COMPARISON STUDY: 10/09/2024. FINDINGS: Endotracheal tube tip is stable at the thoracic inlet. Nasogastric tube tip is off the field of view inferiorly. Bilateral central catheters are stable. There is stranding opacity at the right mid and lower lung with blunting of the right costophrenic angle, improved. No pneumothorax. IMPRESSION: Stranding opacity at the right mid and lower lung with blunting of the right costophrenic angle, improved. ACT 112: Negative or not required by law. Electronically signed by: Herman Brush M.D. 10/10/2024 8:13 AM Medications Administered Current Inpatient Medications Budesonide (Budesonide 0.25 Mg/2 Ml Vial (Pulmicort)) 0.5 mg NEB BIDR [facility] Stop: 11/06/24 14:14 Last Admin: 10/10/24 07:43 Dose: 0.5 mg Calcium Acetate (Calcium Acetate 667 Mg Cap/Tab) 667 mg PO BID ANA Stop: 11/05/24 13:59 Last Admin: 10/10/24 08:23 Dose: 667 mg Dextrose (Dextrose 50% 50 Ml Syringe) 25 - 50 ml IV UD PRN; Protocol PRN Reason: Hypoglycemia Protocol Stop: 10/31/24 00:18 Dornase Norris (Dornase Norris 2.5 Ml Amp) 2.5 ml INH BIDR ANA Stop: 11/08/24 18:59 Last Admin: 10/10/24 07:43 Dose: 2.5 ml Enteral Nutritional Formula (Novasource Renal 2.0 Martínez 1000ml Bag) 1,000 ml OG .See Protocol ANA; Protocol Stop: 11/02/24 10:29 Last Admin: 10/06/24 17:22 Dose: 1,000 ml Folic Acid (Folic Acid 1 Mg Tab) 1 mg PO DAILY ANA Stop: 11/03/24 08:59 Last Admin: 10/10/24 08:23 Dose: 1 mg Furosemide (Furosemide 40 Mg/4 Ml Vial) 80 mg IV BID17 [facility] Stop: 11/09/24 09:29 Last Admin: 10/10/24 09:55 Dose: 80 mg Glucagon (Glucagon For Inj 1 Mg Vial) 1 mg SQ UD PRN; Protocol PRN Reason: Hypoglycemia Protocol Stop: 10/31/24 00:18 Glucose (Glucose 40% Gel 15 Gm Tube) 15 - 30 gm PO UD PRN; Protocol PRN Reason: Hypoglycemia Protocol Stop: 10/31/24 00:18 Glucose (Glucose 10 Tab/Tube) 4 - 8 tab PO UD PRN; Protocol PRN Reason: Hypoglycemia Protocol Stop: 10/31/24 00:18 Guaifenesin (Guaifenesin 600 Mg Tabcr) 1,200 mg PO Q12 ANA Stop: 11/08/24 20:59 Last Admin: 10/10/24 08:24 Dose: 1,200 mg Heparin Sodium (Beef Lung) (Heparin 10 Unit/Ml 5 Ml Flush) 5 ml FLUSH PRN PRN PRN Reason: Flush Stop: 11/04/24 10:26 Dexmedetomidine/Sodium Chloride (Precedex) 400 mcg in 100 mls @ 12.71 mls/hr IV .Q7H53M [facility]; Protocol Stop: 10/12/24 02:44 Last Admin: 10/10/24 10:02 Dose: 0.4 mcg/kg/hr, 12.7 mls/hr Linezolid (Zyvox) 600 mg in 300 mls @ 200 mls/hr IV Q12H [facility] Stop: 10/13/24 11:59 Last Infusion: 10/10/24 03:06 Dose: Infused Azithromycin (Zithromax) 500 mg in 255 mls @ 127.5 mls/hr IV Q24H ANA Stop: 10/13/24 12:29 Last Infusion: 10/09/24 17:03 Dose: Infused Heparin Sodium/Dextrose (Heparin 96700 Unit/500 Ml D5w) 25,000 units in 500 mls @ 42 mls/hr IV .[id number] [facility]; Protocol Stop: 11/08/24 16:14 Last Titration: 10/10/24 07:09 Dose: 2,100 units/hr, 42 mls/hr Pantoprazole Sodium (Protonix) 40 mg in 10 mls @ 5 mls/min IV QAM [facility] Stop: 11/10/24 08:59 Hydrocortisone Sodium (Succinate 50 mg/ Syringe) 1 mls @ 4 mls/min IV Q12 [facility] Stop: 11/09/24 20:59 Insulin Aspart (Insulin Aspart Per Unit Charge) 0 units SC Q4 [facility] Stop: 11/02/24 11:59 Last Admin: 10/10/24 08:30 Dose: Not Given Levalbuterol HCl (Levalbuterol 1.25 Mg/3 Ml Neb) 1.25 mg NEB Q8R [facility] Stop: 10/30/24 14:59 Last Admin: 10/10/24 07:42 Dose: 1.25 mg Metoprolol Tartrate (Metoprolol Tartrate 25 Mg Tab) 25 mg PO Q8H [facility] Stop: 11/08/24 15:29 Last Admin: 10/10/24 08:22 Dose: 25 mg Miscellaneous (Carbohydrates For Hypoglycemia ) 15 - 30 gm PO UD PRN PRN Reason: Hypoglycemia Protocol Stop: 10/31/24 00:18 Nutritional Formula (Prosource No Carb 30 Ml/Pkt) 30 ml OG TID ANA Stop: 11/02/24 13:59 Last Admin: 10/10/24 08:30 Dose: Not Given Sodium Chloride (Sodium Chlor 7% 4 Ml Neb) 4 ml NEB BIDR ANA Stop: 11/03/24 18:59 Last Admin: 10/10/24 07:43 Dose: 4 ml Sterile Water (Tube Feeding Water Flush) 30 ml GT Q4H ANA Stop: 10/30/24 10:29 Last Admin: 10/10/24 10:02 Dose: 30 ml Thiamine HCl (Thiamine Hcl 100 Mg Tab) 100 mg PO DAILY ANA Stop: 11/03/24 08:59 Last Admin: 10/10/24 08:23 Dose: 100 mg
[2024-10-10 11:45] LABS: ANA Pattern Cytoplasmic; ANA Titer 1:80 titer
[2024-10-10] MEDS: MIDAZOLAM HCL 1 MG/ML 2ML VIAL IV STA ×2 (15:06→15:47)
[2024-10-10] MEDS: MIDAZOLAM HCL 1 MG/ML 2ML VIAL ONE (15:06)
[2024-10-10] MEDS: VECURONIUM BROMIDE 10 MG VIAL IV STA ×2 (15:15→16:04)
[2024-10-10] MEDS: VECURONIUM BROMIDE 10 MG VIAL IV ONE (15:47)
--- NOTE | 2024-10-10 16:27 | Procedure Note ---
Procedure Note Date of Service October 10, 2024 Procedure Date: Noted Above Procedure: Percutaneous Dilatational Tracheotomy with Bronchoscopic Guidance Pre-procedure Diagnosis & Indication: Chronic respiratory failure and need for ongoing mechanical ventilation Post-procedure Diagnosis: same as above Prior to Procedure: Informed Consent: The risks, benefits, indications, potential complications, and alternatives were explained to the patient's family and informed consent was obtained. Performed by: Patrick Gillette DO Bronchoscopy Senior Contracts Manager: Bisi KOO Preprocedure: The identity of the patient was confirmed and a bedside time out was performed. [place] protocol was followed for this procedure. Prior to the initiation of sedation or the procedure, a timeout was performed. The patients identity was verified by confirming the patients wrist band for name, date of , and medical record number. Everyone in the room was in agreement with the patient identify, the procedure to be performed, consent was in place and matched the planned procedure, and the procedure site. The area was cleaned with a CHG scrub and draped with large sterile barrier. Hand hygiene was performed, and cap, mask, sterile gown, and sterile gloves were worn. The patient was covered by a large sterile drape. Sterile technique was maintained for the entire procedure. Anesthesia: The patient was intubated and sedated prior to the procedure. Additional midazolam and fentanyl was given for deep sedation. Once the patient was adequately sedated, vecuronium was administered for paralysis. Description of Procedure: The patient was placed in the supine position. The anterior neck was prepped and draped in usual sterile fashion. 1% lidocaine was administered approximately 2 finger breadths above the sternal notch for local anesthesia. The bronchoscope was introduced through the endotracheal tube and the trachea was properly visualized. The endotracheal tube was then gradually withdrawn within the trachea under direct bronchoscopic visualization. The area of the surgical site was initially transilluminated, and proper midline position was confirmed by bouncing the needle from the tracheostomy tray over the trachea with bronchoscopic examination. The needle was advanced into the trachea and proper positioning was confirmed with direct visualization. The needle was then removed leaving a white outer cannula in position. The wire from the tracheostomy tray was then advanced through the white outer cannula. The cannula was then removed. The initial small, blue dilator was then advanced over the wire into the trachea for initial dilation. The large, tapered dilator was then advanced over the wire into the trachea. The dilator was removed leaving the wire and white inner cannula in position. A number 6 percutaneous Shiley tracheostomy tube with appropriate inner cannula was then advanced over the wire and white inner cannula into the trachea. Luminal positioning was confirmed with bronchoscopic visualization. At this time the end of the tracheostomy tube would intermittently obstruct with the posterior wall of the trachea. The bronchoscope was advanced through the endotracheal tube and the cuff was noted to not be fully in the tracheal lumen and it was felt that the tracheostomy tube was too short for the patient's habitus. Care was taken to reinsert the obturator into the existing tracheostomy including guidewire. The tracheostomy tube was removed and the guidewire remained in place this was done under direct bronchoscopic visualization. A 6-0 proximal XLT was then advanced over the wire and into the trachea. Luminal positioning was again confirmed via direct bronchoscopic evaluation and end-tidal CO2 confirmation. The tracheostomy tube was then sutured in place with four nylon sutures. It was further secured with a tracheostomy tie. Estimated blood loss: Less than 5 mL. Complications: None immediate. [facility] [place] Procedure Codes (Charges) ENT ENT: 60051 Incision of windpipe Coding CPT Codes ENT - ENT: 53939 Incision of windpipe ([id number]) Additional Codes Date of Service (PG.SURGERY)
[2024-10-10 16:36] LABS: Anti Mitochondrial Antibody NEGATIVE (NEGATIVE); Hepatitis A Antibody IgM NON-REACTIVE (NON-REACTIVE); Hepatitis B Core Antibody IgM NON-REACTIVE (NON-REACTIVE)
[2024-10-10] MEDS: LIDOCAINE 2%/EPINEPHRINE 1:100,000 20ML INFIL STA (16:44)
--- NOTE | 2024-10-10 18:24 | XRay Report ---
2 views of the abdomen were obtained Findings: Only the upper abdomen is visualized. There is an apparent feeding tube with its tip within the stomach The visualized bowel gas pattern appears unremarkable. No renal or ureteral calculi are seen. No foreign body is evident. There is lumbar degenerative disc disease There is a suspected small right pleural effusion. There is right lower lobe opacity that may be due to pneumonia Impression: 1. Feeding tube with its tip within the stomach 2. Small right pleural effusion and possible right lower lobe pneumonia Electronically signed by Hiram San 10-10-2024 6:24 PM
[2024-10-10] MEDS: HYDROCORTISONE SOD 50 MG in SYRINGE 0 ML IV SCH (20:55)
[2024-10-11 02:22] LABS: iSTAT Art Bld Gas Base Excess 0.0 meg/L (-9-1.8)
[2024-10-11 03:28] LABS: Hematocrit (blood only) 32.7 % (42.0-52.0); Hemoglobin 11.2 g/dl (14.0-18.0); Mean Corpuscular Hemoglobin 31.3 pg (25.0-34.0); Mean Corpuscular Volume 91.3 fL (80.0-100.0); Platelet Count 180 K/uL (130-400); RDW Standard Deviation 46.6 fL (36.4-46.3); Red Blood Count 3.58 M/uL (4.70-6.10); White Blood Count 10.04 K/ul (4.8-10.8)
[2024-10-11 03:57] LABS: Anion Gap 15 (3-11); Blood Urea Nitrogen 108 mg/dl (6-23); Calcium 7.9 mg/dl (8.6-10.3); Carbon Dioxide 22 mmol/L (21-32); Chloride 100 mmol/L (98-107); Creatinine Clr Calc Pharmacy 32.3 ml/min; Glucose 156 mg/dl (70-99(Fasting)); Sodium 137 mmol/L (136-145)
[2024-10-11 04:02] LABS: ANTI-Xa, UFH(UnfractionatedHep 0.38 IU/ml (0.3-0.7)
--- NOTE | 2024-10-11 08:15 | Hospitalist Progress Note ---
Date of Service October 11, 2024 Assessment & Plan (1) Respiratory failure: Plan: Due to MRSA and Legionella pneumonia Bronchial lavage growing MRSA Urine Legionella positive Currently on cefepime, linezolid Consulted infectious disease. bronchoscopy showing significant mucus plugging, cleared out - repeat bronchoscopy still with mucus plugging -tracheostomy (2) COPD (chronic obstructive pulmonary disease) with emphysema: Plan: Budesonide twice daily Solu-medrol (3) Atrial fibrillation: Plan: -amiodarone d/c'd - heparin drip (4) NAOMY (acute kidney injury): Plan: ATN due to septic shock Creatinine still rising Still oliguric/anuric Nephrology involved - HD as per nephrology Patient will likely need a permacath (5) Hypertension: Plan: -losartan on hold 2nd to hypotension (6) Acute hyponatremia: Plan: -Na+ 137 (7) Acute non-ST elevation myocardial infarction (NSTEMI): Plan: Most likely demand ischemia due to hypoxia and tachycardia. (8) Alcohol withdrawal delirium: Plan: Currently on propofol and fentanyl Thiamine and folic acid Plan This is a 64-year-old morbidly obese male with a history of COPD, hypertension who presents with severe respiratory distress, now on BiPAP. Chest x-ray showed pneumonia. He was given DuoNebs, steroids, ceftriaxone in the emergency room. Labs significant for lactic acidosis of 5, anion gap metabolic acidosis, hyponatremia, hypokalemia, elevated troponin, elevated procalcitonin. His blood pressure dropped while in the ER. He is being admitted to the ICU with acute hypoxic respiratory failure, pneumonia with severe sepsis Admission and Anticipated Discharge Date Admission Date: September 29, 2024 Subjective No events overnight. Pt awake, trached. Review of Systems Review of Systems: CONST: Negative for fever, body aches and chills. HENT: Tracheostomy EYES: Negative for discharge/pain or vision changes. RESP: Negative for cough/hemoptysis and shortness of breath. CV: Negative chest pain, difficulty breathing, palpitations. ABD: Negative pain, nausea, vomiting. : Negative increase frequency, dysuria, blood in urine or stool. MUSC: Negative for muscle aches, edema. SKIN: Negative rash, lesions/sores. NEURO: Negative headache, dizziness, weakness. Physical Exam Physical Exam: GENERAL APPEARANCE Intubated EYES lids/conjunctiva normal. EARS/NOSE/THROAT Mucous membranes moist, nares normal, lips/teeth normal uvula midline without oral pharyngeal erythema, exudate or swelling TMs normal bilaterally. No lymphangitis/lymphedema. HEAD/NECK ET tube in placed RESPIRATORY respiratory effort normal, speaks in full sentences, no tripod position, no accessory muscle use. Lungs clear to auscultation without rhonchi, wheezes, rales CARDIAC Regular rate and rhythm, no edema. ABDOMINAL Soft, ND/NT. No evidence of fluid wave. No pulsatile masses on exam, rebound tenderness, Platt sign or pain over Mcburney's point. MUSCLES/EXTREMITIES No abnormal range of motion, no swelling. SKIN Warm, pink and dry. No rashes, dermatoses, petechiae or lesions. NEUROLOGICAL Sedated PSYCH Normal mood and affect. Judgement/competence is appropriate Results & Data Results & Data Vital Signs (Past 12 Hours) Vital Signs Pulse Resp BP Pulse Ox FiO2 10/11/24 06:03 91 H 23 92 10/11/24 05:33 89 24 94 10/11/24 05:00 90 21 95 10/11/24 04:27 100 H 23 96 10/11/24 04:15 81 21 96 10/11/24 04:00 50 10/11/24 03:36 94 H 24 96 10/11/24 03:36 83 24 96 50 10/11/24 02:57 82 24 95 10/11/24 02:51 82 28 H 95 10/11/24 02:48 90 24 96 10/11/24 02:45 87 24 10/11/24 02:42 82 26 H 96 10/11/24 02:39 98 H 24 10/11/24 02:36 86 25 H 96 10/11/24 02:24 82 26 H 96 10/11/24 02:09 79 24 96 10/11/24 01:51 81 24 96 10/11/24 01:48 80 24 96 10/11/24 01:45 85 24 10/11/24 01:39 90 24 96 10/11/24 01:36 90 23 96 10/11/24 01:33 91 H 24 96 10/11/24 01:27 92 H 24 97 10/11/24 01:21 92 H 24 96 10/11/24 01:18 90 24 96 10/11/24 01:15 94 H 23 96 10/11/24 01:12 84 24 96 10/11/24 01:00 96 H 24 96 10/11/24 00:27 79 24 96 10/11/24 00:03 93 H 24 94 10/11/24 00:00 50 10/11/24 00:00 86 10/10/24 23:30 86 24 94 10/10/24 23:29 90 25 H 94 50 10/10/24 22:57 87 24 92 10/10/24 22:07 129/87 10/10/24 22:06 84 24 96 10/10/24 21:30 83 24 97 10/10/24 21:06 76 24 97 10/10/24 20:31 86 24 97 50 10/10/24 20:30 76 24 97 10/10/24 20:27 84 PG Care Time/CCT Total # of Minutes Spent Total Time Spent with Patient: Total time spent is greater than 50% in coordination of care (as documented) at patient's floor/unit and/or counseling patient: Coding Level of Care Code 85423 SUB INP/OBS CARE 2/35MIN Diagnoses Respiratory failure J96.90 COPD (chronic obstructive pulmonary disease) with emphysema J43.9 Atrial fibrillation I48.91 NAOMY (acute kidney injury) N17.9 Hypertension I10 Acute hyponatremia E87.1 Acute non-ST elevation myocardial infarction (NSTEMI) I21.4 Alcohol withdrawal delirium F10.931
--- NOTE | 2024-10-11 08:26 | Infectious Disease Progress Nt ---
Date of Service October 11, 2024 Assessment & Plan (1) Pneumonia: (2) Acute hypoxemic respiratory failure: (3) NAOMY (acute kidney injury): Plan Problems: #MRSA and Legionella pneumonia #Acute hypoxic respiratory failure s/p intubation 09/30 #NAOMY Micro: 10/07 RLL BAL cx: scant normal anne 10/05 BCx x2: NG 10/05 C diff neg 10/02 R main stem BAL Bronchial cx: NG. GS no org Fungal cx: NGTD AFB smear neg, cx pending Legionella PCR: pending 09/30 RML BAL Bronchial cx: MRSA Fungal cx: NGTD AFB smear neg, cx NGTD Histo/Blasto PCR: neg Cocci PCR: neg Legionella PCR: positive Flu, RSV PCR: pending 09/29 Sputum cx: moderate normal anne 09/29 MRSA nares: positive 09/29 BCx x2: NGTD 09/29 Urine Legionella Ag: detected Abx: Linezolid 10/08 - present Cefepime 10/07 - present Metronidazole 10/07 - present Azithro 09/29 - present Vanc 09/29 - 10/01, 10/07 Ceftaroline 10/01 - 10/06 Pip-tazo 10/01 - 10/02 Ceftriaxone 09/29 - 09/30 64 yo M with COPD, HTN who presented on 09/29 with shortness of breath, admitted with AHRF, MRSA and Legionella pneumonia. On presentation, he was afebrile, HR 165, BP 116/89 (later dropped as low as 88/64), RR 34, requiring BiPAP. Labs showed WBC 10.41, plt 121, Na 124, K 2.3, Cr 1.16, AST 86, Tbili 1.2, lactate 5.4, procal 4.49. CTA chest with no PE, and RUL and RML pneumonia. He was started on vanc, ceftriaxone, azithromycin, solumedrol and admitted to the ICU. He was intubated on 09/30 due to respiratory failure. A bronchoscopy was performed, which showed a moderate amount of brown-red secretions in the R main which was suctioned out. RML BAL cx grew MRSA, and BAL Legionella PCR positive. Urine Legionella Ag returned positive. Overnight on 10/01, pt went into afib with RVR, required norepi, vasopressin, phenylephrine. Was persistently febrile. WBC increased to 19.28. Ceftriaxone was changed to Zosyn. Vanc was changed to ceftaroline. Kidney function worsening, with Cr up to 3.15 on 10/02. On phenylephrine and vasopressin. Repeat bronchoscopy done 10/02, which showed moderate amount of clear brown secretions in the R main going into the RLL. 10/02 BAL culture NG. Respiratory status worsening 10/07, so repeat bronchoscopy done which showed diffuse thick yellow and batista secretions bilaterally, significant mucous plugging of RLL and RUL. Ceftaroline changed to vanc, cefepime, metronidazole due to concern for VAP. Also continued on azithro for Legionella. 10/07 BAL cx with scant normal anne.. Recommendations: - Continue azithromycin 500 mg IV q24h for Legionella pneumonia to complete 14 day course through 10/12/24 - Continue linezolid 600 mg q12h for MRSA pneumonia to complete a 14 day course through 10/12/24 Will sign off. Please re-consult ID with further questions Admission and Anticipated Discharge Date Admission Date: September 29, 2024 Subjective This patient recommendation is based on a telemedicine consult request which was completed asynchronously through chart review and information provided by the primary physician. The patient was not seen or examined today. The evaluation is consultative in nature and all patient care and treatment decisions can either be accepted or rejected by the patient's primary hospital-based treating physician using their own independent medical judgment for their patient. Time Spent Reviewing Chart: 11 - 20 minutes No acute events Results & Data Vital Signs (Past 12 Hours) Vital Signs Pulse Resp BP Pulse Ox FiO2 10/11/24 06:03 91 H 23 92 10/11/24 05:33 89 24 94 10/11/24 05:00 90 21 95 10/11/24 04:27 100 H 23 96 10/11/24 04:15 81 21 96 10/11/24 04:00 50 10/11/24 03:36 94 H 24 96 10/11/24 03:36 83 24 96 50 10/11/24 02:57 82 24 95 10/11/24 02:51 82 28 H 95 10/11/24 02:48 90 24 96 10/11/24 02:45 87 24 96 10/11/24 02:42 82 26 H 96 10/11/24 02:39 98 H 24 96 10/11/24 02:36 86 25 H 96 10/11/24 02:24 82 26 H 96 10/11/24 02:09 79 24 96 10/11/24 01:51 81 24 96 10/11/24 01:48 80 24 96 10/11/24 01:45 85 24 96 10/11/24 01:39 90 24 96 10/11/24 01:36 90 23 96 10/11/24 01:33 91 H 24 96 10/11/24 01:27 92 H 24 97 10/11/24 01:21 92 H 24 96 10/11/24 01:18 90 24 96 10/11/24 01:15 94 H 23 96 10/11/24 01:12 84 24 96 10/11/24 01:00 96 H 24 96 10/11/24 00:27 79 24 96 10/11/24 00:03 93 H 24 94 10/11/24 00:00 50 10/11/24 00:00 86 10/10/24 23:30 86 24 94 10/10/24 23:29 90 25 H 94 50 10/10/24 22:57 87 24 92 10/10/24 22:07 129/87 10/10/24 22:06 84 24 96 10/10/24 21:30 83 24 97 10/10/24 21:06 76 24 97 10/10/24 20:31 86 24 97 50 10/10/24 20:30 76 24 97 10/10/24 20:27 84 Laboratory Results Short CBC 10/11/24 Range/Units 03:16 WBC 10.04 (4.8-10.8) K/ul Hgb 11.2 L (14.0-18.0) g/dl Hct 32.7 L (42.0-52.0) % Plt Count 180 (130-400) K/uL BMP 10/11/24 10/11/24 03:16 04:17 Sodium 137 Potassium TNP TNP Chloride 100 Carbon Dioxide 22 BUN 108 H D Creatinine 3.17 H Glucose 156 H Calcium 7.9 L Medications Administered Current Inpatient Medications Budesonide (Budesonide 0.25 Mg/2 Ml Vial (Pulmicort)) 0.5 mg NEB BIDR ANA Stop: 11/06/24 14:14 Last Admin: 10/11/24 07:19 Dose: 0.5 mg Calcium Acetate (Calcium Acetate 667 Mg Cap/Tab) 667 mg PO BID ANA Stop: 11/05/24 13:59 Last Admin: 10/10/24 20:55 Dose: 667 mg Clonidine HCl (Clonidine Hcl 0.1 Mg Tab) 0.2 mg PO Q8H ANA Stop: 10/13/24 07:59 Dextrose (Dextrose 50% 50 Ml Syringe) 25 - 50 ml IV UD PRN; Protocol PRN Reason: Hypoglycemia Protocol Stop: 10/31/24 00:18 Dornase Norris (Dornase Norris 2.5 Ml Amp) 2.5 ml INH BIDR ANA Stop: 11/08/24 18:59 Last Admin: 10/10/24 19:42 Dose: 2.5 ml Enteral Nutritional Formula (Novasource Renal 2.0 Martínez 1000ml Bag) 1,000 ml OG .See Protocol ANA; Protocol Stop: 11/02/24 10:29 Last Admin: 10/10/24 21:20 Dose: 1,000 ml Fentanyl Citrate (Fentanyl Citrate Pf 100 Mcg/2 Ml Vial) 50 mcg IV Q15M PRN PRN Reason: Pain Stop: 10/24/24 14:58 Last Admin: 10/11/24 07:42 Dose: 50 mcg Folic Acid (Folic Acid 1 Mg Tab) 1 mg PO DAILY ANA Stop: 11/03/24 08:59 Last Admin: 10/10/24 08:23 Dose: 1 mg Furosemide (Furosemide 40 Mg/4 Ml Vial) 80 mg IV BID17 ANA Stop: 11/09/24 09:29 Last Admin: 10/10/24 16:47 Dose: 80 mg Glucagon (Glucagon For Inj 1 Mg Vial) 1 mg SQ UD PRN; Protocol PRN Reason: Hypoglycemia Protocol Stop: 10/31/24 00:18 Glucose (Glucose 40% Gel 15 Gm Tube) 15 - 30 gm PO UD PRN; Protocol PRN Reason: Hypoglycemia Protocol Stop: 10/31/24 00:18 Glucose (Glucose 10 Tab/Tube) 4 - 8 tab PO UD PRN; Protocol PRN Reason: Hypoglycemia Protocol Stop: 10/31/24 00:18 Guaifenesin (Guaifenesin Sugar Free 200 Mg/10 Ml Udc) 400 mg PO Q4H ANA Stop: 11/09/24 20:59 Last Admin: 10/11/24 04:16 Dose: 400 mg Heparin Sodium (Beef Lung) (Heparin 10 Unit/Ml 5 Ml Flush) 5 ml FLUSH PRN PRN PRN Reason: Flush Stop: 11/04/24 10:26 Dexmedetomidine/Sodium Chloride (Precedex) 400 mcg in 100 mls @ 28.598 mls/hr IV .Q3H30M [facility]; Protocol Stop: 10/12/24 02:44 Last Titration: 10/11/24 06:53 Dose: 0.9 mcg/kg/hr, 28.6 mls/hr Linezolid (Zyvox) 600 mg in 300 mls @ 200 mls/hr IV Q12H [facility] Stop: 10/13/24 11:59 Last Infusion: 10/11/24 01:50 Dose: Infused Azithromycin (Zithromax) 500 mg in 255 mls @ 127.5 mls/hr IV Q24H [facility] Stop: 10/13/24 12:29 Last Infusion: 10/10/24 14:09 Dose: Infused Heparin Sodium/Dextrose (Heparin 83120 Unit/500 Ml D5w) 25,000 units in 500 mls @ 42 mls/hr IV .[id number] [facility]; Protocol Stop: 11/08/24 16:14 Last Titration: 10/11/24 06:53 Dose: 2,100 units/hr, 42 mls/hr Pantoprazole Sodium (Protonix) 40 mg in 10 mls @ 5 mls/min IV QAM [facility] Stop: 11/10/24 08:59 Hydrocortisone Sodium (Succinate 50 mg/ Syringe) 1 mls @ 4 mls/min IV Q12 [facility] Stop: 11/09/24 20:59 Last Admin: 10/10/24 20:55 Dose: 4 mls/min Insulin Aspart (Insulin Aspart Per Unit Charge) 0 units SC Q4 [facility] Stop: 11/02/24 11:59 Last Admin: 10/11/24 04:18 Dose: Not Given Levalbuterol HCl (Levalbuterol 1.25 Mg/3 Ml Neb) 1.25 mg NEB Q8R [facility] Stop: 10/30/24 14:59 Last Admin: 10/11/24 07:20 Dose: 1.25 mg Metoprolol Tartrate (Metoprolol Tartrate 25 Mg Tab) 25 mg PO Q8H [facility] Stop: 11/08/24 15:29 Last Admin: 10/10/24 22:57 Dose: 25 mg Miscellaneous (Carbohydrates For Hypoglycemia ) 15 - 30 gm PO UD PRN PRN Reason: Hypoglycemia Protocol Stop: 10/31/24 00:18 Nutritional Formula (Prosource No Carb 30 Ml/Pkt) 30 ml OG TID [facility] Stop: 11/02/24 13:59 Last Admin: 10/10/24 20:55 Dose: 30 ml Ondansetron HCl (Ondansetron Inj 2 Mg/Ml 2 Ml Vial) 4 mg IV Q6H PRN PRN Reason: Nausea And Vomiting Stop: 11/10/24 07:50 Sodium Chloride (Sodium Chlor 7% 4 Ml Neb) 4 ml NEB BIDR [facility] Stop: 11/03/24 18:59 Last Admin: 10/11/24 07:20 Dose: 4 ml Sterile Water (Tube Feeding Water Flush) 30 ml GT Q4H [facility] Stop: 10/30/24 10:29 Last Admin: 10/11/24 05:31 Dose: 30 ml Thiamine HCl (Thiamine Hcl 100 Mg Tab) 100 mg PO DAILY [facility] Stop: 11/03/24 08:59 Last Admin: 10/10/24 08:23 Dose: 100 mg
[2024-10-11] MEDS: PANTOprazole 40 MG/10 ML SYR IV SCH (08:33)
--- NOTE | 2024-10-11 08:33 | Nephrology Progress Note ---
Date of Service October 11, 2024 Assessment & Plan (1) NAOMY (acute kidney injury): Plan: * NAOMY - c/w ischemic ATN. 1st HD 10/02 * UO 4 L last 24 hours. Net -2L overnight * POC discussed w/ ICU team this am. Will provide HD today due to worsening azotemia * HD orders placed in EMR and HD RN notified. Will attempt 1 LUF * Reduce furosemide to 80 mg IV daily * Plan to hold HD over weekend and monitor kidney function, UO. If recovery then remove temporary catheter. If ongoing need for HD, then will pursue TCC * Repeat BMP in am (2) Severe sepsis with septic shock: Plan: * Clinically improving. Remains on azithromycin and linezolid. ID following. BAL --> MRSA. Legionella +. (3) Acute hypoxemic respiratory failure: Plan: * Remains ventilator dependent. UF as tolerated. Admission and Anticipated Discharge Date Admission Date: September 29, 2024 Subjective Mr. Moyer was evaluated in the ICU. He underwent tracheostomy yesterday. This mornig is is alert, mechanically ventilated. Review of Systems Review of Systems: Other (unobtainable due to tracheostomy) Physical Exam Constitutional: + ill appearing Eyes: + anicteric sclerae ENMT: external ear and nose normal, oropharynx normal Neck: trachea midline, no thyromegaly Cardiovascular: Rate/Rhythm: regular rate and regular rhythm Extremities: + edema (1+ dependent edema of the arms and legs) Gastrointestinal (Abdomen): normal bowel sounds, soft, nontender, no hepatosplenomegaly Musculoskeletal: Extremities: no cyanosis and no clubbing Skin: no rashes, warm and dry Results & Data Vital Signs (Past 12 Hours) Vital Signs Pulse Resp BP Pulse Ox FiO2 10/11/24 06:03 91 H 23 92 10/11/24 05:33 89 24 94 10/11/24 05:00 90 21 95 10/11/24 04:27 100 H 23 96 10/11/24 04:15 81 21 96 10/11/24 04:00 50 10/11/24 03:36 94 H 24 96 10/11/24 03:36 83 24 96 50 10/11/24 02:57 82 24 95 10/11/24 02:51 82 28 H 95 10/11/24 02:48 90 24 96 10/11/24 02:45 87 24 96 10/11/24 02:42 82 26 H 96 10/11/24 02:39 98 H 24 96 10/11/24 02:36 86 25 H 96 10/11/24 02:24 82 26 H 96 10/11/24 02:09 79 24 96 10/11/24 01:51 81 24 96 10/11/24 01:48 80 24 96 10/11/24 01:45 85 24 96 10/11/24 01:39 90 24 96 10/11/24 01:36 90 23 96 10/11/24 01:33 91 H 24 96 10/11/24 01:27 92 H 24 97 10/11/24 01:21 92 H 24 96 10/11/24 01:18 90 24 96 10/11/24 01:15 94 H 23 96 10/11/24 01:12 84 24 96 10/11/24 01:00 96 H 24 96 10/11/24 00:27 79 24 96 10/11/24 00:03 93 H 24 94 10/11/24 00:00 50 10/11/24 00:00 86 10/10/24 23:30 86 24 94 10/10/24 23:29 90 25 H 94 50 10/10/24 22:57 87 24 92 10/10/24 22:07 129/87 10/10/24 22:06 84 24 96 10/10/24 21:30 83 24 97 10/10/24 21:06 76 24 97 Laboratory Results Laboratory Results - last 24 hr 10/07/24 10/08/24 10/09/24 15:26 03:40 02:16 WBC RBC Hgb POC Hgb 10.2 L Hct POC Hct 30 L MCV MCH MCHC RDW Std Deviation RDW Coeff of [place] Plt Count MPV Heparin Anti-Xa, Unfract Specimen Type POC pH 7.32 L POC pCO2 41 POC pO2 101 H POC HCO3 21 POC Total CO2 23 L POC Base Excess -5.0 POC ABG O2 Sat 97.0 H POC FiO2 POC Sodium 132 L Sodium POC Potassium 4.8 Potassium Chloride Carbon Dioxide Anion Gap BUN Creatinine Est Cr Clr Drug Dosing eGFR BUN/Creatinine Ratio Glucose POC Glucose POC Glucose (other) Calcium Uoimc-7-Loslytjxvsa 337 H Ceruloplasmin 28 KEIRA Screen POSITIVE A KEIRA Titer 1:80 H KEIRA Pattern Cytoplasmic A Anti-Mitochondrial Ab NEGATIVE Anti-Smooth Muscle Ab POSITIVE A Hepatitis A IgM Ab NON-REACTIVE Hep B Core IgM Ab NON-REACTIVE 10/10/24 10/10/24 10/10/24 12:01 16:58 21:20 WBC RBC Hgb POC Hgb Hct POC Hct MCV MCH MCHC RDW Std Deviation RDW Coeff of [place] Plt Count MPV Heparin Anti-Xa, Unfract Specimen Type POC pH POC pCO2 POC pO2 POC HCO3 POC Total CO2 POC Base Excess POC ABG O2 Sat POC FiO2 POC Sodium Sodium POC Potassium Potassium Chloride Carbon Dioxide Anion Gap BUN Creatinine Est Cr Clr Drug Dosing eGFR BUN/Creatinine Ratio Glucose POC Glucose 117 H 111 H POC Glucose (other) 115 H Calcium Yatgk-4-Jivgpzimhfh Ceruloplasmin KEIRA Screen KEIRA Titer KEIRA Pattern Anti-Mitochondrial Ab Anti-Smooth Muscle Ab Hepatitis A IgM Ab Hep B Core IgM Ab 10/11/24 10/11/24 10/11/24 00:25 02:12 03:16 WBC 10.04 RBC 3.58 L Hgb 11.2 L POC Hgb 10.9 L Hct 32.7 L POC Hct 32 L MCV 91.3 MCH 31.3 MCHC 34.3 RDW Std Deviation 46.6 H RDW Coeff of [place] 13.8 Plt Count 180 MPV 11.6 Heparin Anti-Xa, Unfract 0.38 Specimen Type Arterial POC pH 7.48 H POC pCO2 32 L POC pO2 88 POC HCO3 24 POC Total CO2 25 POC Base Excess 0.0 POC ABG O2 Sat 98.0 H POC FiO2 50 POC Sodium 136 Sodium 137 POC Potassium 3.3 Potassium TNP Chloride 100 Carbon Dioxide 22 Anion Gap 15 H BUN 108 H D Creatinine 3.17 H Est Cr Clr Drug Dosing 32.3 eGFR 21.18 BUN/Creatinine Ratio 34.1 H Glucose 156 H POC Glucose 141 H POC Glucose (other) Calcium 7.9 L Awpzh-[id number] Ceruloplasmin KEIRA Screen KEIRA Titer KEIRA Pattern Anti-Mitochondrial Ab Anti-Smooth Muscle Ab Hepatitis A IgM Ab Hep B Core IgM Ab 10/11/24 10/11/24 10/11/24 04:15 04:17 06:08 WBC RBC Hgb POC Hgb Hct POC Hct MCV MCH MCHC RDW Std Deviation RDW Coeff of [place] Plt Count MPV Heparin Anti-Xa, Unfract Specimen Type POC pH POC pCO2 POC pO2 POC HCO3 POC Total CO2 POC Base Excess POC ABG O2 Sat POC FiO2 POC Sodium Sodium POC Potassium Potassium TNP Pending Chloride Carbon Dioxide Anion Gap BUN Creatinine Est Cr Clr Drug Dosing eGFR BUN/Creatinine Ratio Glucose POC Glucose 124 H POC Glucose (other) Calcium Xvadh-9-Upnxuaybwjz Ceruloplasmin KEIRA Screen KEIRA Titer KEIRA Pattern Anti-Mitochondrial Ab Anti-Smooth Muscle Ab Hepatitis A IgM Ab Hep B Core IgM Ab 10/11/24 07:50 WBC RBC Hgb POC Hgb Hct POC Hct MCV MCH MCHC RDW Std Deviation RDW Coeff of [place] Plt Count MPV Heparin Anti-Xa, Unfract Specimen Type POC pH POC pCO2 POC pO2 POC HCO3 POC Total CO2 POC Base Excess POC ABG O2 Sat POC FiO2 POC Sodium Sodium POC Potassium Potassium Chloride Carbon Dioxide Anion Gap BUN Creatinine Est Cr Clr Drug Dosing eGFR BUN/Creatinine Ratio Glucose POC Glucose 108 H POC Glucose (other) Calcium Fmcqm-5-Hiawgpfyjom Ceruloplasmin KEIRA Screen KEIRA Titer KEIRA Pattern Anti-Mitochondrial Ab Anti-Smooth Muscle Ab Hepatitis A IgM Ab Hep B Core IgM Ab PG Care Time/CCT Total # of Minutes Spent Total Time Spent with Patient: Total time spent is greater than 50% in coordination of care (as documented) at patient's floor/unit and/or counseling patient: Coding Level of Care Code 47938 SUB INP/OBS CARE 3/50MIN Diagnoses NAOMY (acute kidney injury) N17.9 Severe sepsis with septic shock A41.9; R65.21 Acute hypoxemic respiratory failure J96.01
--- NOTE | 2024-10-11 09:35 | Critical Care Progress Note ---
Date of Service October 11, 2024 Assessment & Plan (1) ARDS (adult respiratory distress syndrome): (2) Pneumonia: (3) Pleural effusion: (4) Acute hypoxemic respiratory failure: (5) Thrombocytopenia: (6) Airway intubation performed without difficulty: (7) History of tobacco abuse: (8) Respiratory failure: (9) COPD (chronic obstructive pulmonary disease) with emphysema: (10) Severe sepsis: (11) Acute non-ST elevation myocardial infarction (NSTEMI): (12) Alcohol withdrawal delirium: (13) MRSA pneumonia: (14) Legionella pneumonia: Plan Impression: 64-year-old male with severe obstructive lung disease at baseline admitted with multifocal pneumonia and hypoxemic respiratory failure with concomitant lactic acidosis. Lactate is improved with IV fluids. He is currently on antibiotics. He was placed on noninvasive positive pressure ventilation admitted to the ICU. Neurologic: CT head and MRI brain without acute findings. History of right cerebellar infarct. On thiamine and folic acid due to the reported history of alcohol abuse. Continue minimize sedation is much as possible. RASS goal 0. On precedex for sedation. Cardiovascular: 2D echo 09/30/2024: Moderate LV dysfunction, EF 40%, RV not well-visualized. Repeat echo 10/07/2024 with improved LVEF which was normalized. RV dysfunction noted troponin 10/07/2024 minimally elevated. Initially presented with a type II DE with elevated troponins likely demand ischemia. Holding home antihypertensives. Amiodarone discontinued due to transaminitis and elevation of TSH. Start metoprolol 25 mg every 8 for A-fib RVR. Respiratory: Patient with ARDS secondary to Legionella and MRSA pneumonia which is slowly improving. Bronchoscopy results significant for MRSA and Legionella positive PCR. Extended azithromycin to 14 days for Legionella. Discussed with ID. Will complete 14 days of MRSA coverage with a combination of ceftaroline, vancomycin and now Zyvox. Discontinue cefepime and flagyl. Follow-up bronchoscopy cultures showing only NRF. Repeat bronchoscopy performed 10/08/2024 and 10/07/2024. Significant mucous plugging noted bilaterally. Start dornase alpha nebs and twice daily Mucinex. Continue hypertonic saline. Hydrocortisone weaned 50 mg every q12h given intubation status and severe pneumonia. Patient also with a moderate right-sided free-flowing pleural effusion. No sig ns of loculations. Will continue to monitor and consider thoracentesis. Patient with a reported history of COPD. Patient may require tracheostomy in the next 1 to 2 days if unable to be extubated. GI: LFTs and lipase improving. Liver ultrasound 10/07/2024 with fatty liver infiltration. Gallbladder is mildly dilated. No stones noted. Possible acalculous cholecystitis. Alk phos is improving. Appreciate GI input. Pantoprazole 40 mg daily. Pancreatitis appears to be improving. Will restart tube feeds tomorrow if unable to be extubated. Renal: Suspect ischemic ATN and cardiorenal failure playing a role. Patient with uremia. Appreciate nephrology input and intermittent hemodialysis. Endocrine: TSH down this am 3.57. Elevation was possibly from amiodarone or a euthyroid sick syndrome. Discontinue amiodarone. Appreciate pharmacy input with assistance of hyperglycemia management. Patient on hydrocortisone 50 mg daily per previous provider. Continue hydrocortisone wean to q12h. ID: Procalcitonin trending down. Antibiotics deescalated to linezlid Heme-onc: No significant issues at present aside from mild anemia. --Prophylaxis VTE: Heparin drip held this am for possible trach. GI: Pantoprazole Lines: Left IJ, left radial, peripheral, positive [place], right IJ dialysis catheter 10/02/2024 Diet: NPO. OG tube to low intermittent wall suction. CRITICAL CARE TIME I have personally spent 50 minutes of critical care time in the direct management of this patient. This is a life/limb threatening event. This includes time spent evaluating patient, direct bedside care, chart review, placing orders, interpretation of diagnostic studies, discussion with consultants, patient, and family members, as well as other required patient management activities. This time is exclusive of all separately billable procedures, and teaching time and separate from and in addition to any other critical care service time. Admission and Anticipated Discharge Date Admission Date: September 29, 2024 Supervising Physician Co-Signing Physician Notes I have personally evaluated and examined this patient. I agree with assessment and plan of Yudelka KOO. Ultrasound both upper extremities based on right arm being mildly larger and probable need for PICC versus midline access attempting to remove central venous access. Continue with HD catheter at the present will be utilized today by nephrology. Continue anticoagulation for what initially appeared to be new onset A-fib, patient was previously on amiodarone to attempt rhythm control however this was discontinued due to complications. Increase beta-mary to 75 mg every 8 hours. Transition off fentanyl to Dilaudid for longer acting narcotic as needed 0.5 mg IV every 4 hours as needed pain. Patient has been in large part been on continuous anticoagulation which was started with in 48 hours of initial atrial fibrillation. Considering possible cardioversion. Increasing oxygen requirement will obtain chest x-ray to review if patient needs therapeutic bronchoscopy for mucoid impaction. If oxygen requirement is able to be decreased could consider trach trials. Patient has significant excessive dynamic airway collapse. Attempting to minimize sedation, holding on risperidone secondary to Linezolid and azithromycin: Requires 2 more days to complete treatment course. Currently feeding through [employer]. I have personally spent 55 minutes of critical care time in the direct management of this patient. This is a life/limb threatening event. This includes time spent evaluating patient, direct bedside care, chart review, placing orders, interpretation of diagnostic studies, discussion with consultants, patient, and/or family members regarding treatment decisions, as well as other required patient management activities. This time is exclusive of all separately billable procedures, and teaching time and separate from and in addition to any other critical care service time. clinical update at 1530: Patient had difficulty obtaining flows through temporary HD catheter, Cathflo was instilled, despite this there was inability to perform hemodialysis through the line. I have ordered the catheter to be removed since it is dysfunctional. Patient has increasing urine output with the assistance of diuretics, we will check a stat BMP. Anticipate he can tolerate missing dialysis today and we can revisit the clinical question of dialysis tomorrow; we should also be able to achieve a replacement catheter at that time if it is still required. I am awaiting a bilateral upper extremity venous duplex, patient may need midline, avoiding PICC if possible at this time if there is concerns for need for long-term hemodialysis. Review of Systems Review of Systems: All systems reviewed & are unremarkable except as noted in HPI & below Physical Exam Physical Exam: Constitutional: Patient appears to be of their stated age. Patient is in no apparent distress. Patient is well-developed. Eyes: Pupils are equal round and reactive to light. Conjunctivae are normal. Anicteric sclera. Ears nose, mouth and throat: Endotracheal tube in place size 7.5. Neck: Trachea is midline. Visual inspection is normal. Respiratory: Bilateral rales and crackles. Cardiovascular: Irregular rhythm. Tachycardic. No murmurs. Gastrointestinal: Normal bowel sounds, soft, nontender and nondistended. No hepatosplenomegaly noted. Musculoskeletal: No cyanosis. Patient is able to move all extremities. Strength is 5 out of 5 in the upper and lower extremities. Skin: No rashes, warm dry and intact. Neurologic: Profoundly weak diffusely. Following intermittently Psychiatric: Unable to fully assess. Skin: no rashes, warm and dry Lymphatic: no cervical or axillary lymphadenopathy Results & Data Results & Data Vital Signs (Past 12 Hours) Vital Signs Pulse Resp BP Pulse Ox FiO2 10/11/24 08:52 70 10/11/24 07:20 85 22 96 50 10/11/24 06:03 91 H 23 92 10/11/24 05:33 89 24 94 10/11/24 05:00 90 21 95 10/11/24 04:27 100 H 23 96 10/11/24 04:15 81 21 96 10/11/24 04:00 50 10/11/24 03:36 94 H 24 96 10/11/24 03:36 83 24 96 50 10/11/24 02:57 82 24 95 10/11/24 02:51 82 28 H 95 10/11/24 02:48 90 24 96 10/11/24 02:45 87 24 96 10/11/24 02:42 82 26 H 96 10/11/24 02:39 98 H 24 96 10/11/24 02:36 86 25 H 96 10/11/24 02:24 82 26 H 96 10/11/24 02:09 79 24 96 10/11/24 01:51 81 24 96 10/11/24 01:48 80 24 96 10/11/24 01:45 85 24 96 10/11/24 01:39 90 24 96 10/11/24 01:36 90 23 96 10/11/24 01:33 91 H 24 96 10/11/24 01:27 92 H 24 97 10/11/24 01:21 92 H 24 96 10/11/24 01:18 90 24 96 10/11/24 01:15 94 H 23 96 10/11/24 01:12 84 24 96 10/11/24 01:00 96 H 24 96 10/11/24 00:27 79 24 96 10/11/24 00:03 93 H 24 94 10/11/24 00:00 50 10/11/24 00:00 86 10/10/24 23:30 86 24 94 10/10/24 23:29 90 25 H 94 50 10/10/24 22:57 87 24 92 10/10/24 22:07 129/87 10/10/24 22:06 84 24 96 Critical Care Results & Data Vital Signs (Past 12 Hours) Vital Signs Pulse Resp BP Pulse Ox FiO2 10/11/24 08:52 70 10/11/24 07:20 85 22 96 50 10/11/24 06:03 91 H 23 92 10/11/24 05:33 89 24 94 10/11/24 05:00 90 21 95 10/11/24 04:27 100 H 23 96 10/11/24 04:15 81 21 96 10/11/24 04:00 50 10/11/24 03:36 94 H 24 96 10/11/24 03:36 83 24 96 50 10/11/24 02:57 82 24 95 10/11/24 02:51 82 28 H 95 10/11/24 02:48 90 24 96 10/11/24 02:45 87 24 96 10/11/24 02:42 82 26 H 96 10/11/24 02:39 98 H 24 96 10/11/24 02:36 86 25 H 96 10/11/24 02:24 82 26 H 96 10/11/24 02:09 79 24 96 10/11/24 01:51 81 24 96 10/11/24 01:48 80 24 96 10/11/24 01:45 85 24 96 10/11/24 01:39 90 24 96 10/11/24 01:36 90 23 96 10/11/24 01:33 91 H 24 96 10/11/24 01:27 92 H 24 97 10/11/24 01:21 92 H 24 96 10/11/24 01:18 90 24 96 10/11/24 01:15 94 H 23 96 10/11/24 01:12 84 24 96 10/11/24 01:00 96 H 24 96 10/11/24 00:27 79 24 96 10/11/24 00:03 93 H 24 94 10/11/24 00:00 50 10/11/24 00:00 86 10/10/24 23:30 86 24 94 10/10/24 23:29 90 25 H 94 50 10/10/24 22:57 87 24 92 10/10/24 22:07 129/87 10/10/24 22:06 84 24 96 Lab & Micro Results (Past 24 Hours) RBC 3.58 M/uL (4.70-6.10) L 10/11/24 WBC 10.04 K/ul (4.8-10.8) 10/11/24 Hgb 11.2 g/dl (14.0-18.0) L 10/11/24 Hct 32.7 % (42.0-52.0) L 10/11/24 MCV 91.3 fL (80.0-100.0) 10/11/24 MCH 31.3 pg (25.0-34.0) 10/11/24 MCHC 34.3 g/dL (32.0-36.0) 10/11/24 RDW Standard Deviation 46.6 fL (36.4-46.3) H 10/11/24 RDW Coefficient of Variation 13.8 % (11.5-14.5) 10/11/24 Plt Count 180 K/uL (130-400) 10/11/24 MPV 11.6 fL (9.4-12.4) 10/11/24 Na 137 mmol/L (136-145) 10/11/24 K 3.1 mmol/L (3.5-5.1) L 10/11/24 Cl 100 mmol/L (98-107) 10/11/24 CO2 22 mmol/L (21-32) 10/11/24 Anion Gap 15 (3-11) H 10/11/24 BUN 108 mg/dl (6-23) H 10/11/24 Creatinine 3.17 mg/dl (0.6-1.4) H 10/11/24 BUN/Creatinine Ratio 34.1 (10-20) H 10/11/24 Glu 156 mg/dl (70-99(Fasting)) H 10/11/24 Ca 7.9 mg/dl (8.6-10.3) L 10/11/24 Calcium Level 7.9 mg/dl (8.6-10.3) L 10/11/24 03:16 Microbiology 10/05/24 08:44 Aerobic Blood Culture - Final Blood No growth in Aerobic bottle after 5 days. Anaerobic Blood Culture - Final No growth in Anaerobic bottle after 5 days. 10/05/24 08:54 Aerobic Blood Culture - Final Blood No growth in Aerobic bottle after 5 days. Anaerobic Blood Culture - Final Diagnostic Findings (Past 24 Hours) KUB X-Ray 10/10/24 17:17 2 views of the abdomen were obtained Findings: Only the upper abdomen is visualized. There is an apparent feeding tube with its tip within the stomach The visualized bowel gas pattern appears unremarkable. No renal or ureteral calculi are seen. No foreign body is evident. There is lumbar degenerative disc disease There is a suspected small right pleural effusion. There is right lower lobe opacity that may be due to pneumonia Impression: 1. Feeding tube with its tip within the stomach 2. Small right pleural effusion and possible right lower lobe pneumonia Electronically signed by Hiram San 10-10-2024 6:24 PM I & O Totals 24 Hours 10/10/24 10/11/24 10/12/24 06:59 06:59 06:59 Intake Total 2748.536 / 2748.536 1946.672 / 1946.672 Output Total 2640 / 2640 4025 / 4025 Balance 108.536 / 108.536 -2078.328 / -2078.328 Cumulative 09/29/24 10:48 thru 10/11/24 06:53 Intake Total 66385.7653 Output Total 21233 Balance 16497.7653 RT Ventilator Mngmt (Last Documented) Ventilator Ordered Settings Ventilator Support Mode Assist Control 10/11/24 07:20 Respiratory Rate 22 10/11/24 07:20 Ventilator Tidal Volume 440 10/11/24 07:20 Setting Minute Ventilation 9.5 10/11/24 07:20 Ventilator Positive Pressure 6 10/10/24 14:19 Support Setting Positive End Expiratory 8 10/11/24 07:20 Pressure Fraction of Inspired Oxygen 70 10/11/24 08:52 Machine Comment FIO2 increased for low SPO2 10/11/24 08:52 Ventilator - PT Measurements Respiratory Rate 22 Exhaled Tidal Volume 521 Minute Ventilation 9.5 Peak Inspiratory Airway 33 Pressure Plateau Pressure 19 Respiratory Cycle Inspiratory: 1:3.3 Expiratory Ratio Inspiratory Phase Time 0.60 End-Tidal CO2 30 Static Lung Compliance 47.36 Dynamic Lung Compliance 20.84 Normal Static Lung Compliance 46.00 Patient Measurements Comment Patient placed back on full vent support per Joyce PERSAUD Coding Level of Care Code 07904 CRITICAL CARE 1ST 30-74M Diagnoses ARDS (adult respiratory distress syndrome) J80 Pneumonia J18.9 Pleural effusion J90 Acute hypoxemic respiratory failure J96.01 Thrombocytopenia D69.6 Airway intubation performed without difficulty Z78.9 History of tobacco abuse Z87.891 Respiratory failure J96.90 COPD (chronic obstructive pulmonary disease) with emphysema J43.9 Severe sepsis A41.9; R65.20 Acute non-ST elevation myocardial infarction (NSTEMI) I21.4 Alcohol withdrawal delirium F10.931 MRSA pneumonia J15.212 Legionella pneumonia A48.1
[2024-10-11 09:52] LABS: ANTI-Xa, UFH(UnfractionatedHep 0.56 IU/ml (0.3-0.7)
--- NOTE | 2024-10-11 10:41 | XRay Report ---
XR chest 1V portable CLINICAL HISTORY: eval need for bronch COMPARISON STUDY: 10/10/2024 FINDINGS: Interval tracheostomy tube tip is at the thoracic inlet. Feeding tube tip is off the field of view inferiorly. Bilateral central catheters are stable. Stable mild cardiomegaly without pulmonar y vascular congestion. Stable hazy opacity at the right lower lung with partial obscuration of the di aphragm. No pneumothorax seen. IMPRESSION: 1. Interval well-positioned tracheostomy. 2. Stable hazy opacity right lower lung. ACT 112: Negative or not required by law. Electronically signed by: Herman Brush M.D. 10/11/2024 10:39 AM
[2024-10-11] MEDS: METOPROLOL TARTRATE 50 MG TAB PO STA (10:52)
[2024-10-11] MEDS: POTASSIUM CHLORIDE 20 MEQ/15 ML UDC PO SCH (10:52)
[2024-10-11] MEDS: HYDROmorphone INJ 0.5 MG/0.5 ML SYR IV PRN (12:04)
[2024-10-11] MEDS: ONDANSETRON INJ 2 MG/ML 2 ML VIAL IV PRN (12:23)
[2024-10-11] MEDS ORDERED: [UNRECOGNIZED DRUG - OTHER] GT SCH (12:45)
[2024-10-11] MEDS: ALTEPLASE, RECOMBINANT 1 MG/ML 2ML VIAL INSTIL ONE ×2 (14:22→14:23)
[2024-10-11] MEDS: HYDROmorphone INJ 0.5 MG/0.5 ML SYR IV STA (14:30)
[2024-10-11] MEDS: METOPROLOL TARTRATE 25 MG TAB PO SCH (15:32)
[2024-10-11 16:02] LABS: Anion Gap 13.0 (3-11); Blood Urea Nitrogen 110.0 mg/dl (6-23); Calcium 7.9 mg/dl (8.6-10.3); Carbon Dioxide 24.0 mmol/L (21-32); Chloride 101.0 mmol/L (98-107); Creatinine Clr Calc Pharmacy 34.9 ml/min; Glucose 250.0 mg/dl (70-99(Fasting)); Magnesium 1.7 mg/dl (1.7-2.4); Potassium 3.4 mmol/L (3.5-5.1); Sodium 138.0 mmol/L (136-145)
--- NOTE | 2024-10-11 19:38 | Ultrasound Report ---
EXAM: US venous doppler UE BI CLINICAL HISTORY: RUE swelling, possible PICC placement. TECHNIQUE: Ultrasound examination of bilateral upper extremity veins was performed in real time and duplex. One or more of the following were performed- spectral analysis, resistive index, waveform analysis, and pulsed Doppler. COMPARISON: None. FINDINGS: Limited evaluation of the left IJV due to bandage and tubing. Right cephalic vein PICC line and right IJV central line. The right cephalic vein along the course of the PICC line at the antecubital fossa, distal upper arm, and mid upper arm is seen as distended, non-compressible with no flow inside, indicating acute superficial thrombophlebitis. Normal phasic, non-pulsatile, and spontaneous flow is noted in the right Internal jugular, bilateral subclavian, axillary, brachial, basilic, and left cephalic, bilateral antecubital, bilateral radial, and bilateral ulnar veins demonstrating normal compressibility and no sonographic evidence of acute deep vein thrombosis (DVT) Additional Findings: Mild subcutaneous edema. IMPRESSION: 1. A right cephalic vein acute superficial thrombophlebitis along the PICC line course at the antecubital fossa, distal and mid upper arm. 2. No sonographic evidence of acute DVT was detected at the time of examination. 3. Mild subcutaneous edema. Disclaimer: DVT could be missed early in the disease when clot burden is minimal. For patients with moderate and high pretest probability of DVT and negative ultrasound, the [employer] clinical guidelines recommend testing with a D-dimer assay or repeat ultrasound in 5-7 days. If symptoms worsen, the Society of radiologists in ultrasound recommends repeating ultrasound even earlier. Electronically signed by Carl Meraz 10-11-2024 7:37 PM
[2024-10-11] MEDS: ACETAMINOPHEN SUSP 325 MG/10.15 ML UDC PO PRN (19:56)
[2024-10-11] MEDS: BANATROL TF 60 ML LIQUID PKT PEG SCH (20:38)
[2024-10-11] MEDS: LIDOCAINE 5% 1 PATCH TD STA (22:25)
[2024-10-12 04:56] LABS: Hematocrit (blood only) 33.9 % (42.0-52.0); Hemoglobin 11.3 g/dl (14.0-18.0); Immature Granulocytes # (auto) 0.07 K/uL (0.01-0.20); Immature Granulocytes % (auto) 0.7 %; Mean Corpuscular Hemoglobin 31.1 pg (25.0-34.0); Mean Corpuscular Volume 93.4 fL (80.0-100.0); Platelet Count 111 K/uL (130-400); RDW Standard Deviation 48.3 fL (36.4-46.3); Red Blood Count 3.63 M/uL (4.70-6.10); White Blood Count 10.01 K/ul (4.8-10.8)
[2024-10-12 05:12] LABS: Alanine Aminotransferase 55.0 U/L (7-52); Alkaline Phosphatase 170.0 U/L (34-104); Anion Gap 11.0 (3-11); Bilirubin,Total 0.7 mg/dl (0.2-1.0); Blood Urea Nitrogen 107.0 mg/dl (6-23); Calcium 7.9 mg/dl (8.6-10.3); Carbon Dioxide 27.0 mmol/L (21-32); Chloride 103.0 mmol/L (98-107); Creatinine Clr Calc Pharmacy 39.6 ml/min; Glucose 179.0 mg/dl (70-99(Fasting)); Magnesium 1.6 mg/dl (1.7-2.4); Potassium 3.1 mmol/L (3.5-5.1); Sodium 141.0 mmol/L (136-145); Total Protein 5.8 gm/dl (6.0-8.3)
[2024-10-12 05:13] LABS: ANTI-Xa, UFH(UnfractionatedHep 0.64 IU/ml (0.3-0.7)
[2024-10-12] MEDS: REMOVE LIDODERM PATCH ONE (06:11)
[2024-10-12] MEDS: HYDROmorphone INJ 0.5 MG/0.5 ML SYR IV PRN (07:32)
[2024-10-12] MEDS: FUROSEMIDE 40 MG/4 ML VIAL IV SCH (08:59)
--- NOTE | 2024-10-12 08:59 | Hospitalist Progress Note ---
Date of Service October 12, 2024 Assessment & Plan (1) Respiratory failure: Plan: Due to MRSA and Legionella pneumonia Bronchial lavage growing MRSA Urine Legionella positive Currently on linezolid and zithromax Consulted infectious disease. bronchoscopy showing significant mucus plugging, cleared out - repeat bronchoscopy still with mucus plugging -tracheostomy (2) COPD (chronic obstructive pulmonary disease) with emphysema: Plan: Budesonide twice daily Solu-medrol (3) Atrial fibrillation: Plan: -amiodarone d/c'd - heparin drip (4) NAOMY (acute kidney injury): Plan: ATN due to septic shock Creatinine still rising Still oliguric/anuric Nephrology involved - HD as per nephrology Patient will likely need a permacath (5) Hypertension: Plan: -losartan on hold 2nd to hypotension (6) Acute hyponatremia: Plan: -Na+ 141 (7) Acute non-ST elevation myocardial infarction (NSTEMI): Plan: Most likely demand ischemia due to hypoxia and tachycardia. (8) Alcohol withdrawal delirium: Plan: Currently on propofol and fentanyl Thiamine and folic acid Plan This is a 64-year-old morbidly obese male with a history of COPD, hypertension who presents with severe respiratory distress, now on BiPAP. Chest x-ray showed pneumonia. He was given DuoNebs, steroids, ceftriaxone in the emergency room. Labs significant for lactic acidosis of 5, anion gap metabolic acidosis, hyponatremia, hypokalemia, elevated troponin, elevated procalcitonin. His blood pressure dropped while in the ER. He is being admitted to the ICU with acute hypoxic respiratory failure, pneumonia with severe sepsis Admission and Anticipated Discharge Date Admission Date: September 29, 2024 Subjective Pt remains trached and vented, resting in bed. Review of Systems Review of Systems: CONST: Negative for fever, body aches and chills. HENT: Tracheostomy EYES: Negative for discharge/pain or vision changes. RESP: Negative for cough/hemoptysis and shortness of breath. CV: Negative chest pain, difficulty breathing, palpitations. ABD: Negative pain, nausea, vomiting. : Negative increase frequency, dysuria, blood in urine or stool. MUSC: Negative for muscle aches, edema. SKIN: Negative rash, lesions/sores. NEURO: Negative headache, dizziness, weakness. Physical Exam Physical Exam: GENERAL APPEARANCE Intubated EYES lids/conjunctiva normal. EARS/NOSE/THROAT Mucous membranes moist, nares normal, lips/teeth normal uvula midline without oral pharyngeal erythema, exudate or swelling TMs normal bilaterally. No lymphangitis/lymphedema. HEAD/NECK ET tube in placed RESPIRATORY respiratory effort normal, speaks in full sentences, no tripod position, no accessory muscle use. Lungs clear to auscultation without rhonchi, wheezes, rales CARDIAC Regular rate and rhythm, no edema. ABDOMINAL Soft, ND/NT. No evidence of fluid wave. No pulsatile masses on exam, rebound tenderness, Platt sign or pain over Mcburney's point. MUSCLES/EXTREMITIES No abnormal range of motion, no swelling. SKIN Warm, pink and dry. No rashes, dermatoses, petechiae or lesions. NEUROLOGICAL Sedated PSYCH Normal mood and affect. Judgement/competence is appropriate Results & Data Results & Data Vital Signs (Past 12 Hours) Vital Signs Temp Pulse Resp BP Pulse Ox FiO2 10/12/24 07:25 93 H 20 98 70 10/12/24 06:09 99 H 20 100 10/12/24 06:00 156/85 H 10/12/24 05:48 93 H 20 98 10/12/24 05:18 113 H 20 100 10/12/24 05:00 161/93 H 10/12/24 05:00 161/93 H 10/12/24 04:51 109 H 20 99 10/12/24 04:18 98 H 20 98 10/12/24 04:00 167/99 H 10/12/24 03:54 70 10/12/24 03:48 102 H 20 99 10/12/24 03:48 109 H 20 97 70 10/12/24 03:18 103 H 20 98 10/12/24 03:00 162/96 H 10/12/24 02:42 109 H 20 99 10/12/24 02:00 101 H 20 96 10/12/24 02:00 37 C 105 H 20 160/91 H 10/12/24 01:12 90 20 99 10/12/24 01:00 146/97 H 10/12/24 00:24 97 H 20 100 10/12/24 00:00 97 H 20 143/95 H 100 70 10/12/24 00:00 70 10/12/24 00:00 121 H 10/11/24 23:50 125 H 21 96 70 10/11/24 23:26 142/95 H 10/11/24 23:26 37.1 C 93 H 20 142/95 H 99 10/11/24 23:09 109 H 19 10/11/24 23:00 116 H 20 97 10/11/24 22:24 115 H 20 163/91 H 96 10/11/24 21:09 109 H 21 97 10/11/24 21:00 159/89 H PG Care Time/CCT Total # of Minutes Spent Total Time Spent with Patient: Total time spent is greater than 50% in coordination of care (as documented) at patient's floor/unit and/or counseling patient: Coding Level of Care Code 40562 SUB INP/OBS CARE 2/35MIN Diagnoses Respiratory failure J96.90 COPD (chronic obstructive pulmonary disease) with emphysema J43.9 Atrial fibrillation I48.91 NAOMY (acute kidney injury) N17.9 Hypertension I10 Acute hyponatremia E87.1 Acute non-ST elevation myocardial infarction (NSTEMI) I21.4 Alcohol withdrawal delirium F10.931
--- NOTE | 2024-10-12 10:34 | Critical Care Progress Note ---
Date of Service October 12, 2024 Assessment & Plan (1) ARDS (adult respiratory distress syndrome): (2) Pneumonia: (3) Pleural effusion: (4) Acute hypoxemic respiratory failure: (5) Thrombocytopenia: (6) Airway intubation performed without difficulty: (7) History of tobacco abuse: (8) Respiratory failure: (9) COPD (chronic obstructive pulmonary disease) with emphysema: (10) Severe sepsis: (11) Acute non-ST elevation myocardial infarction (NSTEMI): (12) Alcohol withdrawal delirium: (13) MRSA pneumonia: (14) Legionella pneumonia: Plan Impression: 64-year-old male with severe obstructive lung disease at baseline admitted with multifocal pneumonia and hypoxemic respiratory failure with concomitant lactic acidosis. Lactate is improved with IV fluids. He is currently on antibiotics. He was placed on noninvasive positive pressure ventilation admitted to the ICU. Neurologic: Encephalopathy: Improved Chronic back pain: On opiates and was slated to undergo surgery this week prior to hospitalization - History of cerebellar infarct Reported possible history of alcohol dependence Cardiovascular: Hypertension: Was unable to tolerate hydrochlorothiazide as an outpatient was previously on ARB, contraindicated secondary to NAOMY. Will initiate amlodipine 5 mg daily for additional blood pressure control New onset atrial fibrillation: Amiodarone discontinued due to transaminitis and elevation of TSH. Metoprolol increased to 100 mg every 8 for A-fib RVR. - Would consider reinstituting amiodarone to possibly have cardioversion to normal sinus rhythm; however, given length of current atrial fibrillation I feel electrical cardioversion would most likely be necessary and therefore to minimize interventions will hold amiodarone for possible chemical cardioversion at this time and continue with systemic anticoagulation 2D echo 09/30/2024: Moderate LV dysfunction, EF 40%, RV not well-visualized. Repeat echo 10/07/2024 with improved LVEF which was normalized. RV dysfunction noted troponin 10/07/2024 minimally elevated. Initially presented with a type II [place] with elevated troponins likely demand ischemia. Respiratory: Patient with ARDS secondary to Legionella and MRSA pneumonia which is slowly improving. Bronchoscopy results significant for MRSA and Legionella positive PCR. Extended azithromycin to 14 days for Legionella. Discussed with ID. Will complete 14 days of MRSA coverage with a combination of ceftaroline, vancomycin and now Zyvox. Discontinue cefepime and flagyl. Follow-up bronchoscopy cultures showing only NRF. Repeat bronchoscopy performed 10/08/2024 and 10/07/2024. Significant mucous plugging noted bilaterally. Start dornase alpha nebs and twice daily Mucinex. Continue hypertonic saline. - Finishing antibiotic treatment course per IDs recommendations today Pleural effusion: moderate right-sided free-flowing pleural effusion. No signs of loculations. Will continue to monitor and consider thoracentesis. COPD with excessive dynamic airway collapse noted on bronchoscopy - Percutaneous tracheostomy postop day 2 - Consideration to start trach trials. Still needs positive airway support at this point and significant supplemental oxygen GI: Transaminitis and lipase improving. Liver ultrasound 10/07/2024 with fatty liver infiltration. Gallbladder is mildly dilated. No stones noted. Possible acalculous cholecystitis. Alk phos is improving. Appreciate GI input. - At risk for biliary dysfunction given narcotic use, elevated lipase: Hepa titis panel negative - Has been on antibiotics for MRSA pneumonia - There may be a role for HIDA scan if there is concern of dysfunctional gallbladder however we will hold additional evaluation at this time and allow the patient to recover from significant sepsis/pneumonia - Transaminitis is likely multifactorial Pantoprazole 40 mg daily. Diarrhea: Stopped since discontinuation of tube feeds. Renal: Acute renal failure - Renal function appears to have nadired and creatinine is slightly decreased compared to yesterday urine output increasing Hypokalemia - Undergoing repletion orally: 60 mEq twice today - Dysfunctional temporary hemodialysis catheter was removed yesterday would continue with line holiday Endocrine: Free T4 within normal limits. TSH has been variable unclear clinical significance most consistent with sick euthyroid. Would consider reinitiation of amiodarone if required Discontinuing hydrocortisone ID: Last day of antibiotics per IDs recommendation Heme-onc: Systemic anticoagulation with heparin, would consider transition to Xarelto when renal function improving Superficial thrombosis at IV sites, currently on systemic anticoagulation for indication of atrial fibrillation - Will attempt ultrasound-guided IV on the left side versus midline and goals to remove central venous catheter --Prophylaxis VTE: Heparin drip GI: Pantoprazole Lines: Left IJ, positive [place], peripherally inserted ultrasound guided catheter removed secondary to ultrasound findings Diet: Requesting nutrition to transition to tube feed with lower osmotic content CRITICAL CARE TIME I have personally spent 70 minutes of critical care time in the direct management of this patient. This is a life/limb threatening event. This includes time spent evaluating patient, direct bedside care, chart review, placing orders, interpretation of diagnostic studies, discussion with consultants, patient, and family members, as well as other required patient management activities. This time is exclusive of all separately billable procedures, and teaching time and separate from and in addition to any other critical care service time. Admission and Anticipated Discharge Date Admission Date: September 29, 2024 Subjective No overnight events. Was unable to complete dialysis yesterday. Has had issues with pain and anxiety. This has necessitated discontinuation of tube feeds secondary to enteric discomfort. Additional history obtained patient was to undergo lumbar fixation this week and had been taking opioids prior to. Patient has been complaining of back pain since his mental status has been improving Physical Exam Physical Exam: General: Alert. nontoxic. Skin: Warm, dry, Head: Atraumatic Ears, nose, mouth and throat: airway patent, tracheostomy in place with no oozing Cardiovascular: Normal peripheral perfusion, atrial fibrillation on bedside monitor Respiratory: no respiratory distress Gastrointestinal: Non distended Musculoskeletal: No deformity Results & Data Results & Data Vital Signs (Past 12 Hours) Vital Signs Temp Pulse Resp BP Pulse Ox FiO2 10/12/24 09:38 36.7 C 10/12/24 07:25 93 H 20 98 70 10/12/24 06:09 99 H 20 100 10/12/24 06:00 156/85 H 10/12/24 05:48 93 H 20 98 10/12/24 05:18 113 H 20 100 10/12/24 05:00 161/93 H 10/12/24 05:00 161/93 H 10/12/24 04:51 109 H 20 99 10/12/24 04:18 98 H 20 98 10/12/24 04:00 167/99 H 10/12/24 03:54 70 10/12/24 03:48 102 H 20 99 10/12/24 03:48 109 H 20 97 70 10/12/24 03:18 103 H 20 98 10/12/24 03:00 162/96 H 10/12/24 02:42 109 H 20 99 10/12/24 02:00 101 H 20 96 10/12/24 02:00 37 C 105 H 20 160/91 H 10/12/24 01:12 90 20 99 10/12/24 01:00 146/97 H 10/12/24 00:24 97 H 20 100 10/12/24 00:00 97 H 20 143/95 H 100 70 10/12/24 00:00 70 10/12/24 00:00 121 H 10/11/24 23:50 125 H 21 96 70 10/11/24 23:26 142/95 H 10/11/24 23:26 37.1 C 93 H 20 142/95 H 99 10/11/24 23:09 109 H 19 10/11/24 23:00 116 H 20 97 10/11/24 22:24 115 H 20 163/91 H 96 Critical Care Results & Data Vital Signs (Past 12 Hours) Vital Signs Temp Pulse Resp BP Pulse Ox FiO2 10/12/24 09:38 36.7 C 10/12/24 07:25 93 H 20 98 70 10/12/24 06:09 99 H 20 100 10/12/24 06:00 156/85 H 10/12/24 05:48 93 H 20 98 10/12/24 05:18 113 H 20 100 10/12/24 05:00 161/93 H 10/12/24 05:00 161/93 H 10/12/24 04:51 109 H 20 99 10/12/24 04:18 98 H 20 98 10/12/24 04:00 167/99 H 10/12/24 03:54 70 10/12/24 03:48 102 H 20 99 10/12/24 03:48 109 H 20 97 70 10/12/24 03:18 103 H 20 98 10/12/24 03:00 162/96 H 10/12/24 02:42 109 H 20 99 10/12/24 02:00 101 H 20 96 10/12/24 02:00 37 C 105 H 20 160/91 H 10/12/24 01:12 90 20 99 10/12/24 01:00 146/97 H 10/12/24 00:24 97 H 20 100 10/12/24 00:00 97 H 20 143/95 H 100 70 10/12/24 00:00 70 10/12/24 00:00 121 H 10/11/24 23:50 125 H 21 96 70 10/11/24 23:26 142/95 H 10/11/24 23:26 37.1 C 93 H 20 142/95 H 99 10/11/24 23:09 109 H 19 10/11/24 23:00 116 H 20 97 10/11/24 22:24 115 H 20 163/91 H 96 Lab & Micro Results (Past 24 Hours) RBC 3.63 M/uL (4.70-6.10) L 10/12/24 WBC 10.01 K/ul (4.8-10.8) 10/12/24 Hgb 11.3 g/dl (14.0-18.0) L 10/12/24 Hct 33.9 % (42.0-52.0) L 10/12/24 MCV 93.4 fL (80.0-100.0) 10/12/24 MCH 31.1 pg (25.0-34.0) 10/12/24 MCHC 33.3 g/dL (32.0-36.0) 10/12/24 RDW Standard Deviation 48.3 fL (36.4-46.3) H 10/12/24 RDW Coefficient of Variation 14.1 % (11.5-14.5) 10/12/24 Plt Count 111 K/uL (130-400) L 10/12/24 MPV 11.0 fL (9.4-12.4) 10/12/24 Neutrophils (%) (Auto) 86.5 % 10/12/24 Lymphocytes (%) (Auto) 6.4 % 10/12/24 Monocytes # (Auto) 0.61 K/uL (0.11-0.59) H 10/12/24 Eosinophils # (Auto) 0.02 K/uL (0.00-0.50) 10/12/24 Immature Granulocyte % (Auto) 0.7 % 10/12/24 Neutrophils # (Auto) 8.66 K/uL (1.40-6.50) H 10/12/24 Lymphocytes # (Auto) 0.64 K/uL (1.20-3.40) L 10/12/24 Monocytes # (Auto) 0.61 K/uL (0.11-0.59) H 10/12/24 Eosinophils # (Auto) 0.02 K/uL (0.00-0.50) 10/12/24 Basophils # (Auto) 0.01 K/uL (0.00-0.20) 10/12/24 Immature Granulocyte # (Auto) 0.07 K/uL (0.01-0.20) 5 Na 141 mmol/L (136-145) 10/12/24 K 3.1 mmol/L (3.5-5.1) L 10/12/24 Cl 103 mmol/L (98-107) 10/12/24 CO2 27 mmol/L (21-32) 10/12/24 Anion Gap 11 (3-11) 10/12/24 BUN 107 mg/dl (6-23) H 10/12/24 Creatinine 2.51 mg/dl (0.6-1.4) H 10/12/24 BUN/Creatinine Ratio 42.6 (10-20) H 10/12/24 Glu 179 mg/dl (70-99(Fasting)) H 10/12/24 Ca 7.9 mg/dl (8.6-10.3) L 10/12/24 Phosphorus Level 7.0 mg/dl (2.5-4.9) H 10/12/24 Total Bilirubin 0.7 mg/dl (0.2-1.0) 10/12/24 Direct Bilirubin 0.2 mg/dl (0-0.2) 10/12/24 AST 40 U/L (13-39) H 10/12/24 ALT 55 U/L (7-52) H 10/12/24 Alkaline Phosphatase 170 U/L (34-104) H 10/12/24 TP 5.8 gm/dl (6.0-8.3) L 10/12/24 Albumin 2.4 gm/dl (3.4-5.0) L 10/12/24 Mg 1.6 mg/dl (1.7-2.4) L 10/12/24 04:23 Calcium Level 7.9 mg/dl (8.6-10.3) L 10/12/24 04:23 Diagnostic Findings (Past 24 Hours) Chest X-Ray 10/11/24 09:54 XR chest 1V portable CLINICAL HISTORY: eval need for bronch COMPARISON STUDY: 10/10/2024 FINDINGS: Interval tracheostomy tube tip is at the thoracic inlet. Feeding tube tip is off the field of view inferiorly. Bilateral central catheters are stable. Stable mild cardiomegaly without pulmonary vascular congestion. Stable hazy opacity at the right lower lung with partial obscuration of the diaphragm. No pneumothorax seen. IMPRESSION: 1. Interval well-positioned tracheostomy. 2. Stable hazy opacity right lower lung. ACT 112: Negative or not required by law. Electronically signed by: Herman Brush M.D. 10/11/2024 10:39 AM Venous Doppler Study 10/11/24 10:17 EXAM: US venous doppler UE BI CLINICAL HISTORY: RUE swelling, possible PICC placement. TECHNIQUE: Ultrasound examination of bilateral upper extremity veins was performed in real time and duplex. One or more of the following were performed- spectral analysis, resistive index, waveform analysis, and pulsed Doppler. COMPARISON: None. FINDINGS: Limited evaluation of the left IJV due to bandage and tubing. Right cephalic vein PICC line and right IJV central line. The right cephalic vein along the course of the PICC line at the antecubital fossa, distal upper arm, and mid upper arm is seen as distended, non-compressible with no flow inside, indicating acute superficial thrombophlebitis. Normal phasic, non-pulsatile, and spontaneous flow is noted in the right Internal jugular, bilateral subclavian, axillary, brachial, basilic, and left cephalic, bilateral antecubital, bilateral radial, and bilateral ulnar veins demonstrating normal compressibility and no sonographic evidence of acute deep vein thrombosis (DVT) Additional Findings: Mild subcutaneous edema. IMPRESSION: 1. A right cephalic vein acute superficial thrombophlebitis along the PICC line course at the antecubital fossa, distal and mid upper arm. 2. No sonographic evidence of acute DVT was detected at the time of examination. 3. Mild subcutaneous edema. Disclaimer: DVT could be missed early in the disease when clot burden is minimal. For patients with moderate and high pretest probability of DVT and negative ultrasound, the [employer] clinical guidelines recommend testing with a D-dimer assay or repeat ultrasound in 5-7 days. If symptoms worsen, the Society of radiologists in ultrasound recommends repeating ultrasound even earlier. Electronically signed by Carl Meraz 10-11-2024 7:37 PM I & O Totals 24 Hours 10/11/24 10/12/24 10/13/24 06:59 06:59 06:59 Intake Total 1946.672 / 6462.686 3483.210 / 2438.210 91.7 / 91.7 Output Total 4025 / 4025 4430 / 4430 Balance -2078.328 / -2078.328 -1991.790 / -1990.790 91.7 / 91.7 Cumulative 09/29/24 10:48 thru 10/12/24 10:21 Intake Total 06701.6753 Output Total 24115 Balance 56087.6753 RT Ventilator Mngmt (Last Documented) Ventilator Ordered Settings Ventilator Support Mode Assist Control 10/12/24 07:25 Respiratory Rate 20 10/12/24 07:25 Ventilator Tidal Volume 440 10/12/24 07:25 Setting Minute Ventilation 8.8 10/12/24 07:25 Ventilator Positive Pressure 6 10/10/24 14:19 Support Setting Positive End Expiratory 8 10/12/24 07:25 Pressure Fraction of Inspired Oxygen 70 10/12/24 07:25 Machine Comment weaned to 60%O2 10/12/24 07:25 Ventilator - PT Measurements Respiratory Rate 20 Exhaled Tidal Volume 440 Minute Ventilation 8.8 Peak Inspiratory Airway 42 Pressure Plateau Pressure 19 Respiratory Cycle Inspiratory: 1:4 Expiratory Ratio Inspiratory Phase Time 0.60 End-Tidal CO2 31 Static Lung Compliance 40.00 Dynamic Lung Compliance 12.94 Normal Static Lung Compliance 43.00 Patient Measurements Comment Patient placed back on full vent support per Joyce PERSAUD Coding Level of Care Code 35314 CRITICAL CARE 1ST 30-74M Diagnoses ARDS (adult respiratory distress syndrome) J80 Pneumonia J18.9 Pleural effusion J90 Acute hypoxemic respiratory failure J96.01 Thrombocytopenia D69.6 Airway intubation performed without difficulty Z78.9 History of tobacco abuse Z87.891 Respiratory failure J96.90 COPD (chronic obstructive pulmonary disease) with emphysema J43.9 Severe sepsis A41.9; R65.20 Acute non-ST elevation myocardial infarction (NSTEMI) I21.4 Alcohol withdrawal delirium F10.931 MRSA pneumonia J15.212 Legionella pneumonia A48.1
--- NOTE | 2024-10-12 11:26 | Nephrology Progress Note ---
Date of Service October 12, 2024 Assessment & Plan (1) NAOMY (acute kidney injury): (2) Legionella pneumonia: (3) MRSA pneumonia: (4) ARDS (adult respiratory distress syndrome): (5) Atrial fibrillation: (6) Severe sepsis: (7) Acute hypoxemic respiratory failure: (8) Acute hyponatremia: Plan 64 year-old male with PMH of morbid obesity, hypertension, and COPD admitted to [facility] on 09/29/24 with respiratory failure, septic shock due to multifocal pneumonia due to MRSA and legionella , requiring intubation and pressor. On admission kidney function was normal ( cr 0.8 mg/dl) but rapidly developed NAOMY in the setting of sepsis, secondary to ATN. Urine microscopy demonstrating WBC, RBC, hyaline and granular casts. Imaging was negative for postrenal obstruction. He also became more than 30 L fluid overloaded. Started on hemodialysis on 10/02/24 and had daily dialysis for fluid removal until yesterday. He is ventilator dependent and had tracheostomy placed, has has been off pressor. Urine output improved significantly and has been net negative more than 2 L overnight although he is still about 25 L positive since admission Electrolyte acceptable. --Continue to monitor over the weekend, no indication for dialysis today as he has been significantly net negative and electrolyte acceptable. If kidney function continue to improve, would hold off on dialysis and may be able to remove the temporary dialysis catheter. However if kidney function worsen again, develop electrolyte abnormalities or urine output drops, will need tunneled dialysis catheter. --Dose medications for GFR less than 10 --Continue to avoid all nephrotoxic medications. Admission and Anticipated Discharge Date Admission Date: September 29, 2024 Results & Data Vital Signs (Past 12 Hours) Vital Signs Temp Pulse Resp BP Pulse Ox FiO2 10/12/24 10:19 108 H 20 98 60 10/12/24 09:38 36.7 C 10/12/24 07:25 93 H 20 98 70 10/12/24 06:09 99 H 20 100 10/12/24 06:00 156/85 H 10/12/24 05:48 93 H 20 98 10/12/24 05:18 113 H 20 100 10/12/24 05:00 161/93 H 10/12/24 05:00 161/93 H 10/12/24 04:51 109 H 20 99 10/12/24 04:18 98 H 20 98 10/12/24 04:00 167/99 H 10/12/24 03:54 70 10/12/24 03:48 102 H 20 99 10/12/24 03:48 109 H 20 97 70 10/12/24 03:18 103 H 20 98 10/12/24 03:00 162/96 H 10/12/24 02:42 109 H 20 99 10/12/24 02:00 101 H 20 96 10/12/24 02:00 37 C 105 H 20 160/91 H 10/12/24 01:12 90 20 99 10/12/24 01:00 146/97 H 10/12/24 00:24 97 H 20 100 10/12/24 00:00 97 H 20 143/95 H 100 70 10/12/24 00:00 70 10/12/24 00:00 121 H 10/11/24 23:50 125 H 21 96 70 10/11/24 23:26 142/95 H 10/11/24 23:26 37.1 C 93 H 20 142/95 H 99 PG Care Time/CCT Total # of Minutes Spent Total Time Spent with Patient: Total time spent is greater than 50% in coordination of care (as documented) at patient's floor/unit and/or counseling patient: Coding Level of Care Code 77989 SUB INP/OBS CARE 2MIN Diagnoses NAOMY (acute kidney injury) N17.9 Legionella pneumonia A48.1 MRSA pneumonia J15.212 ARDS (adult respiratory distress syndrome) J80 Atrial fibrillation I48.91 Severe sepsis A41.9; R65.20 Acute hypoxemic respiratory failure J96.01 Acute hyponatremia E87.1
[2024-10-12] MEDS: METOPROLOL TARTRATE 100 MG TAB PO SCH (12:21)
[2024-10-13 04:39] LABS: Hematocrit (blood only) 35.1 % (42.0-52.0); Hemoglobin 11.5 g/dl (14.0-18.0); Mean Corpuscular Hemoglobin 31.5 pg (25.0-34.0); Mean Corpuscular Volume 96.2 fL (80.0-100.0); Platelet Count 93 K/uL (130-400); RDW Standard Deviation 49.2 fL (36.4-46.3); Red Blood Count 3.65 M/uL (4.70-6.10); White Blood Count 7.92 K/ul (4.8-10.8)
[2024-10-13 04:48] LABS: Anion Gap 10.0 (3-11); Blood Urea Nitrogen 93.0 mg/dl (6-23); Calcium 8.2 mg/dl (8.6-10.3); Carbon Dioxide 30.0 mmol/L (21-32); Chloride 104.0 mmol/L (98-107); Creatinine Clr Calc Pharmacy 54.1 ml/min; Glucose 186.0 mg/dl (70-99(Fasting)); Magnesium 1.3 mg/dl (1.7-2.4); Potassium 3.2 mmol/L (3.5-5.1); Sodium 144.0 mmol/L (136-145)
[2024-10-13 05:02] LABS: Immature Granulocytes # (auto) 0.05 K/uL (0.01-0.20); Immature Granulocytes % (auto) 0.6 %; Polychromasia 1+
[2024-10-13 05:37] LABS: ANTI-Xa, UFH(UnfractionatedHep 0.84 IU/ml (0.3-0.7)
[2024-10-13] MEDS: MAGNESIUM SULFATE / D5W 1 GM/100 ML BAG IV SCH (06:37)
[2024-10-13] MEDS: POTASSIUM CHLORIDE 20 MEQ/15 ML UDC PO STA (06:47)
--- NOTE | 2024-10-13 08:22 | Hospitalist Progress Note ---
Date of Service October 13, 2024 Assessment & Plan (1) Respiratory failure: Plan: Due to MRSA and Legionella pneumonia Bronchial lavage growing MRSA Urine Legionella positive Currently on linezolid and zithromax Consulted infectious disease. bronchoscopy showing significant mucus plugging, cleared out - repeat bronchoscopy still with mucus plugging -tracheostomy -pt breathing off vent (2) COPD (chronic obstructive pulmonary disease) with emphysema: Plan: Budesonide twice daily Solu-medrol (3) Atrial fibrillation: Plan: -amiodarone d/c'd - heparin drip -plan for possible cardioversion (4) NAOMY (acute kidney injury): Plan: ATN due to septic shock Creatinine still rising Still oliguric/anuric Nephrology involved - HD as per nephrology renal function improving, holding off HD (5) Hypertension: Plan: -losartan on hold 2nd to hypotension (6) Acute hyponatremia: Plan: -Na+ 141 (7) Acute non-ST elevation myocardial infarction (NSTEMI): Plan: Most likely demand ischemia due to hypoxia and tachycardia. (8) Alcohol withdrawal delirium: Plan: Currently on propofol and fentanyl Thiamine and folic acid Plan This is a 64-year-old morbidly obese male with a history of COPD, hypertension who presents with severe respiratory distress, now on BiPAP. Chest x-ray showed pneumonia. He was given DuoNebs, steroids, ceftriaxone in the emergency room. Labs significant for lactic acidosis of 5, anion gap metabolic acidosis, hyponatremia, hypokalemia, elevated troponin, elevated procalcitonin. His blood pressure dropped while in the ER. He is being admitted to the ICU with acute hypoxic respiratory failure, pneumonia with severe sepsis Admission and Anticipated Discharge Date Admission Date: September 29, 2024 Subjective Pt awake, breathing off vent this am. No events overnight. Review of Systems Review of Systems: CONST: Negative for fever, body aches and chills. HENT: Tracheostomy EYES: Negative for discharge/pain or vision changes. RESP: Negative for cough/hemoptysis and shortness of breath. CV: Negative chest pain, difficulty breathing, palpitations. ABD: Negative pain, nausea, vomiting. : Negative increase frequency, dysuria, blood in urine or stool. MUSC: Negative for muscle aches, edema. SKIN: Negative rash, lesions/sores. NEURO: Negative headache, dizziness, weakness. Physical Exam Physical Exam: GENERAL APPEARANCE Intubated EYES lids/conjunctiva normal. EARS/NOSE/THROAT Mucous membranes moist, nares normal, lips/teeth normal uvula midline without oral pharyngeal erythema, exudate or swelling TMs normal bilaterally. No lymphangitis/lymphedema. HEAD/NECK ET tube in placed RESPIRATORY respiratory effort normal, speaks in full sentences, no tripod position, no accessory muscle use. Lungs clear to auscultation without rhonchi, wheezes, rales CARDIAC Regular rate and rhythm, no edema. ABDOMINAL Soft, ND/NT. No evidence of fluid wave. No pulsatile masses on exam, rebound tenderness, Platt sign or pain over Mcburney's point. MUSCLES/EXTREMITIES No abnormal range of motion, no swelling. SKIN Warm, pink and dry. No rashes, dermatoses, petechiae or lesions. NEUROLOGICAL Sedated PSYCH Normal mood and affect. Judgement/competence is appropriate Results & Data Results & Data Vital Signs (Past 12 Hours) Vital Signs Pulse Resp BP Pulse Ox FiO2 10/13/24 04:06 96 H 19 98 10/13/24 04:00 154/86 H 10/13/24 04:00 40 10/13/24 03:42 89 20 98 10/13/24 03:03 88 20 97 10/13/24 03:03 84 20 99 40 10/13/24 03:00 146/80 H 10/13/24 02:48 85 20 97 10/13/24 02:30 86 23 96 10/13/24 01:36 101 H 20 96 10/13/24 01:00 160/94 H 10/13/24 00:30 95 H 20 97 10/13/24 00:06 93 H 20 97 10/13/24 00:00 156/97 H 10/13/24 00:00 40 10/13/24 00:00 93 H 10/12/24 23:54 93 H 20 97 10/12/24 23:48 85 20 98 40 10/12/24 23:05 94 H 20 97 10/12/24 22:08 106 H 20 97 10/12/24 22:00 151/86 H 10/12/24 21:53 97 H 20 96 10/12/24 21:05 99 H 20 95 10/12/24 21:00 153/94 H 10/12/24 20:53 101 H 20 96 PG Care Time/CCT Total # of Minutes Spent Total Time Spent with Patient: Total time spent is greater than 50% in coordination of care (as documented) at patient's floor/unit and/or counseling patient: Coding Level of Care Code 19582 SUB INP/OBS CARE 2/35MIN Diagnoses Respiratory failure J96.90 COPD (chronic obstructive pulmonary disease) with emphysema J43.9 Atrial fibrillation I48.91 NAOMY (acute kidney injury) N17.9 Hypertension I10 Acute hyponatremia E87.1 Acute non-ST elevation myocardial infarction (NSTEMI) I21.4 Alcohol withdrawal delirium F10.931
--- NOTE | 2024-10-13 09:22 | Critical Care Progress Note ---
Date of Service October 13, 2024 Assessment & Plan (1) ARDS (adult respiratory distress syndrome): (2) Pneumonia: (3) Pleural effusion: (4) Acute hypoxemic respiratory failure: (5) Thrombocytopenia: (6) Airway intubation performed without difficulty: (7) History of tobacco abuse: (8) Respiratory failure: (9) COPD (chronic obstructive pulmonary disease) with emphysema: (10) Severe sepsis: (11) Acute non-ST elevation myocardial infarction (NSTEMI): (12) Alcohol withdrawal delirium: (13) MRSA pneumonia: (14) Legionella pneumonia: Plan Impression: 64-year-old male with severe obstructive lung disease at baseline admitted with multifocal pneumonia and hypoxemic respiratory failure with concomitant lactic acidosis. Lactate is improved with IV fluids. He is currently on antibiotics. He was placed on noninvasive positive pressure ventilation admitted to the ICU. Neurologic: Encephalopathy: Resolved Chronic back pain: On opiates and was slated to undergo surgery this week prior to hospitalization History of cerebellar infarct Reported possible history of alcohol dependence Cardiovascular: Hypertension: Was unable to tolerate hydrochlorothiazide as an outpatient was previously on ARB, contraindicated secondary to NAOMY. Hemodynamics improving will continue amlodipine to 5mg daily increase metoprolol 125 milligrams 3 times daily New onset atrial fibrillation: Amiodarone discontinued due to transaminitis and elevation of TSH. Metoprolol increased to 125 mg every 8 for A-fib RVR. - Would consider reinstituting amiodarone to possibly have cardioversion to normal sinus rhythm; however, given length of current atrial fibrillation I feel electrical cardioversion would most likely be necessary and therefore to minimize interventions will hold amiodarone for possible chemical cardioversion at this time and continue with systemic anticoagulation 2D echo 09/30/2024: Moderate LV dysfunction, EF 40%, RV not well-visualized. Repeat echo 10/07/2024 with improved LVEF which was normalized. RV dysfunction noted troponin 10/07/2024 minimally elevated. Initially presented with a type II IL with elevated troponins likely demand ischemia. Respiratory: Patient with ARDS secondary to Legionella and MRSA pneumonia which is slowly improving. Bronchoscopy results significant for MRSA and Legionella positive PCR. Extended azithromycin to 14 days for Legionella. Discussed with ID. Will complete 14 days of MRSA coverage with a combination of ceftaroline, vancomycin and now Zyvox. Discontinue cefepime and flagyl. Follow-up bronchoscopy cultures showing only NRF. Repeat bronchoscopy performed 10/08/2024 and 10/07/2024. Significant mucous plugging noted bilaterally. Start dornase alpha nebs and twice daily Mucinex. Continue hypertonic saline. - Finishing antibiotic treatment course per IDs recommendations today Pleural effusion: moderate right-sided free-flowing pleural effusion. No signs of loculations. COPD with excessive dynamic airway collapse noted on bronchoscopy - Percutaneous tracheostomy postop day 2 - Start trach trials. Still needs supplemental oxygen GI: Transaminitis and lipase improving. Liver ultrasound 10/07/2024 with fatty liver infiltration. Gallbladder is mildly dilated. No stones noted. Possible acalculous cholecystitis. Alk phos is improving. Appreciate GI input. - At risk for biliary dysfunction given narcotic use, elevated lipase: Hepatitis panel negative - Has been on antibiotics for MRSA pneumonia - There may be a role for HIDA scan if there is concern of dysfunctional gallbladder however we will hold additional evaluation at this time and allow the patient to recover from significant sepsis/pneumonia - Transaminitis is likely multifactorial Pantoprazole 40 mg daily. Diarrhea: Stopped since discontinuation of tube feeds. Renal: Acute renal failure: Improving - Renal function appears to have nadired and creatinine is slightly decreased compared to yesterday urine output increasing Hypokalemia: Mild - Undergoing repletion orally: 80 mEq in total today Hypomagnesemia - Receiving IV replacement adding nightly enteral supplementation Endocrine: Free T4 within normal limits. TSH has been variable unclear clinical significance most consistent with sick euthyroid. Would consider reinitiation of amiodarone if required ID: Last day of antibiotics per IDs recommendation Heme-onc: Systemic anticoagulation with heparin, will transition to Xarelto given thrombocytopenia Superficial thrombosis at IV sites, currently on systemic anticoagulation for indication of atrial fibrillation - Unclear if this is provoked versus heparin-induced thrombocytopenia, HIT score 4 will send testing and transition to Xarelto - Creatinine clearance 54 will require monitoring but initiating at 15 mg once daily - Will attempt ultrasound-guided IV on the left side versus midline and goals to remove central venous catheter --Prophylaxis VTE: Transition to Xarelto GI: Pantoprazole Lines: Left IJ removed yesterday, Wil, utilizing peripheral IV at this time - Physical and Occupational Therapy consults Diet: Patient tolerating tube feeds at this time increased to goal CRITICAL CARE TIME I have personally spent 65 minutes of critical care time in the direct management of this patient. This is a life/limb threatening event. This includes time spent evaluating patient, direct bedside care, chart review, placing orders, interpretation of diagnostic studies, discussion with consultants, patient, and family members, as well as other required patient management activities. This time is exclusive of all separately billable procedures, and teaching time and separate from and in addition to any other critical care service time. Admission and Anticipated Discharge Date Admission Date: September 29, 2024 Subjective No overnight events Physical Exam Physical Exam: General: Alert. nontoxic. Skin: Warm, dry, Head: Atraumatic Ears, nose, mouth and throat: airway patent, tracheostomy in place with no oozing Cardiovascular: Normal peripheral perfusion, atrial fibrillation on bedside monitor Respiratory: no respiratory distress Gastrointestinal: Non distended Musculoskeletal: No deformity Results & Data Results & Data Vital Signs (Past 12 Hours) Vital Signs Pulse Resp BP Pulse Ox FiO2 10/13/24 07:00 88 15 98 40 10/13/24 04:06 96 H 19 98 10/13/24 04:00 154/86 H 10/13/24 04:00 40 10/13/24 03:42 89 20 98 10/13/24 03:03 88 20 97 10/13/24 03:03 84 20 99 40 10/13/24 03:00 146/80 H 10/13/24 02:48 85 20 97 10/13/24 02:30 86 23 96 10/13/24 01:36 101 H 20 96 10/13/24 01:00 160/94 H 10/13/24 00:30 95 H 20 97 10/13/24 00:06 93 H 20 97 10/13/24 00:00 156/97 H 10/13/24 00:00 40 10/13/24 00:00 93 H 10/12/24 23:54 93 H 20 97 10/12/24 23:48 85 20 98 40 10/12/24 23:05 94 H 20 97 10/12/24 22:08 106 H 20 97 10/12/24 22:00 151/86 H 10/12/24 21:53 97 H 20 96 Critical Care Results & Data Vital Signs (Past 12 Hours) Vital Signs Pulse Resp BP Pulse Ox FiO2 10/13/24 07:00 88 15 98 40 10/13/24 04:06 96 H 19 98 10/13/24 04:00 154/86 H 0803/25 04:00 40 10/13/24 03:42 89 20 98 10/13/24 03:03 88 20 97 10/13/24 03:03 84 20 99 40 10/13/24 03:00 146/80 H 10/13/24 02:48 85 20 97 10/13/24 02:30 86 23 96 10/13/24 01:36 101 H 20 96 10/13/24 01:00 160/94 H 10/13/24 00:30 95 H 20 97 10/13/24 00:06 93 H 20 97 10/13/24 00:00 156/97 H 10/13/24 00:00 40 10/13/24 00:00 93 H 10/12/24 23:54 93 H 20 97 10/12/24 23:48 85 20 98 40 10/12/24 23:05 94 H 20 97 10/12/24 22:08 106 H 20 97 10/12/24 22:00 151/86 H 10/12/24 21:53 97 H 20 96 Lab & Micro Results (Past 24 Hours) RBC 3.65 M/uL (4.70-6.10) L 10/13/24 WBC 7.92 K/ul (4.8-10.8) 10/13/24 Hgb 11.5 g/dl (14.0-18.0) L 10/13/24 Hct 35.1 % (42.0-52.0) L 10/13/24 MCV 96.2 fL (80.0-100.0) 10/13/24 MCH 31.5 pg (25.0-34.0) 10/13/24 MCHC 32.8 g/dL (32.0-36.0) 10/13/24 RDW Standard Deviation 49.2 fL (36.4-46.3) H 10/13/24 RDW Coefficient of Variation 13.9 % (11.5-14.5) 10/13/24 Plt Count 93 K/uL (130-400) L 10/13/24 MPV 11.0 fL (9.4-12.4) 10/13/24 Neutrophils (%) (Auto) 77.1 % 10/13/24 Lymphocytes (%) (Auto) 13.1 % 10/13/24 Monocytes # (Auto) 0.55 K/uL (0.11-0.59) 10/13/24 Eosinophils # (Auto) 0.16 K/uL (0.00-0.50) 10/13/24 Immature Granulocyte % (Auto) 0.6 % 10/13/24 Neutrophils # (Auto) 6.10 K/uL (1.40-6.50) 10/13/24 Lymphocytes # (Auto) 1.04 K/uL (1.20-3.40) L 10/13/24 Monocytes # (Auto) 0.55 K/uL (0.11-0.59) 10/13/24 Eosinophils # (Auto) 0.16 K/uL (0.00-0.50) 10/13/24 Basophils # (Auto) 0.02 K/uL (0.00-0.20) 10/13/24 Immature Granulocyte # (Auto) 0.05 K/uL (0.01-0.20) 5 Polychromasia 1+ 10/13/24 Na 144 mmol/L (136-145) 10/13/24 K 3.2 mmol/L (3.5-5.1) L 10/13/24 Cl 104 mmol/L (98-107) 10/13/24 CO2 30 mmol/L (21-32) 10/13/24 Anion Gap 10 (3-11) 10/13/24 BUN 93 mg/dl (6-23) H 10/13/24 Creatinine 1.84 mg/dl (0.6-1.4) H 10/13/24 BUN/Creatinine Ratio 50.5 (10-20) H 10/13/24 Glu 186 mg/dl (70-99(Fasting)) H 10/13/24 Ca 8.2 mg/dl (8.6-10.3) L 10/13/24 Phosphorus Level 4.2 mg/dl (2.5-4.9) 10/13/24 Mg 1.3 mg/dl (1.7-2.4) L 10/13/24 04:09 Calcium Level 8.2 mg/dl (8.6-10.3) L 10/13/24 04:09 Microbiology 09/30/24 08:45 Acid Fast Bacilli Smear - Final Ba Lavage,Right Middle Lobe Acid Fast Bacilli Culture - Preliminary No Acid-Fast Bacilli Isolated - Report 2, Additional Report to Follow. I & O Totals 24 Hours 10/12/24 10/13/24 10/14/24 06:59 06:59 06:59 Intake Total 2438.210 / 2438.210 1882.8 / 1882.8 121.133 / 121.133 Output Total 4430 / 4430 5475 / 5475 Balance -1991.790 / -1991.790 -3592.2 / -3592.2 121.133 / 121.133 Cumulative 09/29/24 10:48 thru 10/13/24 08:35 Intake Total 72482.9083 Output Total 83567 Balance 80035.9083 RT Ventilator Mngmt (Last Documented) Ventilator Ordered Settings Ventilator Support Mode CPAP 10/13/24 07:00 Respiratory Rate 15 10/13/24 07:00 Ventilator Tidal Volume 440 10/13/24 04:00 Setting Minute Ventilation 6.5 10/13/24 07:00 Ventilator Positive Pressure 6 10/13/24 07:00 Support Setting Positive End Expiratory 8 10/13/24 07:00 Pressure Fraction of Inspired Oxygen 40 10/13/24 07:00 Machine Comment SBT started at this time 10/13/24 07:00 Ventilator - PT Measurements Respiratory Rate 15 Exhaled Tidal Volume 477 Minute Ventilation 6.5 Peak Inspiratory Airway 14 Pressure Plateau Pressure 16.1 Respiratory Cycle Inspiratory: 1:4 Expiratory Ratio Inspiratory Phase Time 0.6 End-Tidal CO2 40 Static Lung Compliance 53.33 Dynamic Lung Compliance 79.50 Normal Static Lung Compliance 49.00 Patient Measurements Comment Patient placed back on full vent support per Joyce PERSAUD Coding Level of Care Code 44809 CRITICAL CARE 1ST 30-74M Diagnoses ARDS (adult respiratory distress syndrome) J80 Pneumonia J18.9 Pleural effusion J90 Acute hypoxemic respiratory failure J96.01 Thrombocytopenia D69.6 Airway intubation performed without difficulty Z78.9 History of tobacco abuse Z87.891 Respiratory failure J96.90 COPD (chronic obstructive pulmonary disease) with emphysema J43.9 Severe sepsis A41.9; R65.20 Acute non-ST elevation myocardial infarction (NSTEMI) I21.4 Alcohol withdrawal delirium F10.931 MRSA pneumonia J15.212 Legionella pneumonia A48.1
--- NOTE | 2024-10-13 09:55 | XRay Report ---
SINGLE VIEW CHEST CLINICAL HISTORY: Respiratory failure. FINDINGS: An AP, portable, upright chest radiograph is compared to study dated 10/11/2024 and correlate d with chest CT dated 10/06/2024. An enteric tube is again noted. A tracheostomy is in place. The hear t is enlarged. The pulmonary vasculature is not congested. Emphysema and chronic interstitial thicken ing is similar to previous. There is a layering right pleural effusion with consolidation in the righ t mid to lower lung. Left lung appears clear noting dependent atelectasis. No pneumothorax is seen. T he skeletal structures are osteopenic. The bony thorax is grossly intact. IMPRESSION: 1. Stable lines and tubes. 2. Cardiomegaly and emphysema without radiographic evidence of congestive failure. 3. There is a layering right pleural effusion with consolidation in the right mid to lower lung. This is similar to previous and radiographic follow-up to resolution is recommended ACT 112: Negative or not required by law. Electronically signed by: Stan Pang M.D. 10/13/2024 9:52 AM
[2024-10-13] MEDS: RIVAROXABAN 15 MG TAB PO SCH (10:19)
[2024-10-13] MEDS: METOPROLOL TARTRATE 25 MG TAB PO SCH (10:19)
--- NOTE | 2024-10-13 11:27 | Nephrology Progress Note ---
Date of Service October 13, 2024 Assessment & Plan (1) NAOMY (acute kidney injury): (2) Legionella pneumonia: (3) MRSA pneumonia: (4) ARDS (adult respiratory distress syndrome): (5) Atrial fibrillation: (6) Severe sepsis: (7) Acute hypoxemic respiratory failure: (8) Acute hyponatremia: Plan 64 year-old male with PMH of morbid obesity, hypertension, and COPD admitted to [facility] on 09/29/24 with respiratory failure, septic shock due to multifocal pneumonia due to MRSA and legionella , requiring intubation and pressor. On admission kidney function was normal ( cr 0.8 mg/dl) but rapidly developed NAOMY in the setting of sepsis, secondary to ATN. Urine microscopy demonstrating WBC, RBC, hyaline and granular casts. Imaging was negative for postrenal obstruction. He also became more than 30 L fluid overloaded. Started on hemodialysis on 10/02/24 and had daily dialysis for fluid removal until yesterday. He is ventilator dependent and had tracheostomy placed, has has been off pressor. Urine output improved significantly and has been net negative more than 2 L overnight although he is still about 25 L positive since admission Electrolyte acceptable. --Continue to monitor kidney function and electrolytes while in the diuresis phase of recovering from NAOMY --Dose medications for GFR less than 30 --Continue to avoid all nephrotoxic medications. Admission and Anticipated Discharge Date Admission Date: September 29, 2024 Subjective Jamie was seen and evaluated this morning. Has been breathing on his own, seems comfortable. Blood pressure slightly elevated. Continue to have great urine output more than 5 L. Kidney function continues to improve, electrolyte acceptable. Review of Systems Review of Systems: All systems reviewed & are unremarkable except as noted in Subjective Physical Exam Constitutional: WD/WN, vitals as above + ill appearing; no acute distress Eyes: + anicteric sclerae Neck: trach collar Respiratory: Auscultation: lungs clear to auscultation bilaterally Cardiovascular: Rate/Rhythm: regular rate and regular rhythm Heart Sounds: normal S1 and normal S2 Extremities: no edema Neurologic: no focal motor deficits Psychiatric: Orientation: alert and oriented x 3 Results & Data Vital Signs (Past 12 Hours) Vital Signs Temp Pulse Pulse Resp BP Pulse Ox O2 Del Method 10/13/24 10:09 36.7 C 10/13/24 10:00 156/89 H 10/13/24 10:00 103 H 15 95 10/13/24 09:40 98 H 93 10/13/24 09:40 98 H 18 96 Trach Collar 10/13/24 09:00 98 H 16 95 10/13/24 09:00 161/102 H 10/13/24 09:00 161/102 H 10/13/24 09:00 161/102 H 10/13/24 09:00 161/102 H 10/13/24 09:00 161/102 H 10/13/24 08:00 107 H 14 98 10/13/24 08:00 165/96 H 10/13/24 08:00 165/96 H 10/13/24 08:00 10/13/24 07:45 Mechanical Vent 10/13/24 07:03 82 20 98 10/13/24 07:00 141/95 H 10/13/24 07:00 88 15 98 10/13/24 06:54 76 20 97 10/13/24 06:45 86 20 96 10/13/24 04:06 96 H 19 98 10/13/24 04:00 154/86 H 10/13/24 04:00 10/13/24 03:42 89 20 98 10/13/24 03:03 88 20 97 10/13/24 03:03 84 20 99 10/13/24 03:00 146/80 H 10/13/24 02:48 85 20 97 10/13/24 02:30 86 23 96 10/13/24 01:36 101 H 20 96 10/13/24 01:00 160/94 H 10/13/24 00:30 95 H 20 97 10/13/24 00:06 93 H 20 97 10/13/24 00:00 156/97 H 10/13/24 00:00 10/13/24 00:00 93 H 10/12/24 23:54 93 H 20 97 10/12/24 23:48 85 20 98 O2 Flow Rate FiO2 10/13/24 10:09 10/13/24 10:00 10/13/24 10:00 10/13/24 09:40 10/13/24 09:40 12 50 10/13/24 09:00 10/13/24 09:00 10/13/24 09:00 10/13/24 09:00 10/13/24 09:00 10/13/24 09:00 10/13/24 08:00 10/13/24 08:00 10/13/24 08:00 10/13/24 08:00 40 10/13/24 07:45 10/13/24 07:03 10/13/24 07:00 10/13/24 07:00 40 10/13/24 06:54 10/13/24 06:45 10/13/24 04:06 10/13/24 04:00 10/13/24 04:00 40 10/13/24 03:42 10/13/24 03:03 10/13/24 03:03 40 10/13/24 03:00 10/13/24 02:48 10/13/24 02:30 10/13/24 01:36 10/13/24 01:00 10/13/24 00:30 10/13/24 00:06 10/13/24 00:00 10/13/24 00:00 40 10/13/24 00:00 10/12/24 23:54 10/12/24 23:48 40 PG Care Time/CCT Total # of Minutes Spent Total Time Spent with Patient: Total time spent is greater than 50% in coordination of care (as documented) at patient's floor/unit and/or counseling patient: Coding Level of Care Code 52684 SUB INP/OBS CARE 2/35MIN Diagnoses NAOMY (acute kidney injury) N17.9 Legionella pneumonia A48.1 MRSA pneumonia J15.212 ARDS (adult respiratory distress syndrome) J80 Atrial fibrillation I48.91 Severe sepsis A41.9; R65.20 Acute hypoxemic respiratory failure J96.01 Acute hyponatremia E87.1
[2024-10-13] MEDS: POTASSIUM CHLORIDE 20 MEQ/15 ML UDC PO SCH (13:39)
[2024-10-13] MEDS: MAGNESIUM OXIDE 400 MG TAB NG SCH (20:43)
[2024-10-14] MEDS: PEPTAMEN INTENSE VHP 1.0 CAL 1,000 ML BAG OG SCH (02:37)
[2024-10-14] MEDS: METOPROLOL TARTRATE 1 MG/ML VIAL IV STA (03:42)
[2024-10-14 05:25] LABS: Hematocrit (blood only) 37.5 % (42.0-52.0); Hemoglobin 12.3 g/dl (14.0-18.0); Immature Granulocytes # (auto) 0.03 K/uL (0.01-0.20); Immature Granulocytes % (auto) 0.3 %; Mean Corpuscular Hemoglobin 31.2 pg (25.0-34.0); Mean Corpuscular Volume 95.2 fL (80.0-100.0); Platelet Count 113 K/uL (130-400); RDW Standard Deviation 48.3 fL (36.4-46.3); Red Blood Count 3.94 M/uL (4.70-6.10); White Blood Count 8.74 K/ul (4.8-10.8)
[2024-10-14 05:43] LABS: Anion Gap 8.0 (3-11); Blood Urea Nitrogen 79.0 mg/dl (6-23); Calcium 8.9 mg/dl (8.6-10.3); Carbon Dioxide 30.0 mmol/L (21-32); Chloride 111.0 mmol/L (98-107); Creatinine Clr Calc Pharmacy 70.9 ml/min; Glucose 168.0 mg/dl (70-99(Fasting)); Magnesium 1.8 mg/dl (1.7-2.4); Potassium 3.8 mmol/L (3.5-5.1); Sodium 149.0 mmol/L (136-145)
[2024-10-14] MEDS: MAGNESIUM SULFATE / D5W 1 GM/100 ML BAG IV SCH (06:10)
[2024-10-14] MEDS: TUBE FEEDING WATER FLUSH GT STA (06:21)
--- NOTE | 2024-10-14 07:36 | Critical Care Progress Note ---
Date of Service October 14, 2024 Assessment & Plan (1) Pneumonia: (2) Pleural effusion: (3) Acute hypoxemic respiratory failure: (4) Thrombocytopenia: (5) History of tobacco abuse: (6) Respiratory failure: (7) COPD (chronic obstructive pulmonary disease) with emphysema: (8) Severe sepsis: (9) Acute non-ST elevation myocardial infarction (NSTEMI): (10) Alcohol withdrawal delirium: Plan Impression: 64-year-old male with severe obstructive lung disease at baseline admitted with multifocal pneumonia and hypoxemic respiratory failure with concomitant lactic acidosis. Lactate is improved with IV fluids. He is currently on antibiotics. He was placed on noninvasive positive pressure ventilation admitted to the ICU. Recommendations: Neurologic: Midazolam pushes as needed agitation/restlessness MRI brain 09/30/2024: Chronic right cerebellar infarct, no evidence of intracranial mass, no acute changes Repeat CT head 10/06/2024: No acute findings -- S/p acute alcohol withdrawal History of heavy alcohol use Continue with thiamine and folic acid Cardiovascular: 2D echo 09/30/2024: Moderate LV dysfunction, EF 40%, RV not well-visualized --New onset A-fib RVR with new onset CHF Amiodarone drip started on 09/30/2024 transition to p.o. 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 -- S/p septic shock Sources is multifocal pneumonia --> BAL growing Staph aureus Urine Legionella positive Completed the course of antibiotics Vasopressor support to keep MAP greater than 65 -- Elevated troponins Likely type II DC Continue to trend --Hypertension On losartan at home --Prolonged QTc Avoid QT prolonging medication Continue to monitor Respiratory: CTA chest 09/29/2024 personally reviewed: Centrilobular and paraseptal emphysema appreciated bilaterally Dense consolidative process appreciated in the right upper lobe as well as right middle lobe Minimal right-sided pleural effusion No significant mediastinal lymphadenopathy -- TDRF Intubated 09/30/2024 --> s/p trach 10/10/[address] Gillette Likely secondary to multifocal pneumonia Bronc culture from 09/30/2024 growing MRSA S/p repeat bronc 10/02/2024, thin clear secretions obstructing the right lower lobe which were suctioned out Nasal MRSA positive --Small right-sided pleural effusion Appreciated on POCUS 10/01/2024 -- COPD with emphysema On Trelegy 100 at home Continue with nebulized budesonide and Perforomist GI: -- Occult blood positive with loose stools H&H seems to be stable Continue to monitor -- Mild transaminitis Continue to trend Renal: -- NAOMY --> improving Dialysis started 10/02/2024 --> dialysis catheter discontinued Diuresing with Lasix Nephrology has been consulted Endocrine: ICU hypoglycemia protocol ID: --Severe multifocal community-acquired pneumonia Finish the course of antibiotics, azithromycin as well as linezolid and on 10/12/2024 Procalcitonin 29.2 MRSA positive QTc 418 Rocephin changed to Zosyn on 09/30/2024 Vancomycin changed to ceftaroline on 10/01/2024 Bronch culture growing Staph aureus Urine Legionella antigen came positive on 10/03/2024 Repeat blood culture 10/06/2024, negative to date Heme-onc: -- Thrombocytopenia Likely secondary to sepsis versus antibiotics Continue to trend Serotonin release assay has been ordered by previous equipment manager, we will follow it up --Prophylaxis VTE: Rivaroxaban GI: Pantoprazole Lines: Peripheral Diet: Tube feeds Plan: In/out: -4.9 L, urine output 5350 Chest x-ray from today shows opacity in the right middle lobe which has significantly improved compared to before Potassium and magnesium being replaced Patient is hypernatremic and hyperchloremic, likely from diuresis. Hold diuresis today Did give free water 250 overnight. I will give the patient D5 water 125 mL an hour 4 L. Nephrology is already change free water pushes through the OGT. Repeat BMP later today Currently patient is on 125 mg of metoprolol Q8. Unguinal decrease it to 50 Q8 and add diltiazem 30 mg Q6. Can increase the dose of diltiazem to 60 every 6 if need be along with metoprolol. Try trach collar during the day and night unless the patient gets tachypneic Placement when family ready to LTAC I have personally spent 37 minutes of critical care time in the direct management of this patient. This is a life/limb threatening event. This includes time spent evaluating patient, direct bedside care, chart review, placing orders, interpretation of diagnostic studies, discussion with consultants, patient, and family members, as well as other required patient management activities. This time is exclusive of all separately billable procedures, and teaching time and separate from and in addition to any other critical care service time. Please note the above document was generated using voice recognition software. It may contain grammatical, syntax or spelling errors. Admission and Anticipated Discharge Date Admission Date: September 29, 2024 Subjective Patient seen and examined at bedside. No acute distress, no adverse events overnight He was resting comfortably. He was on went. Somnolent but easily arousable Denied any abdominal pain No headache, no nausea, no vomiting Following commands Review of Systems 2 Review of Systems: All systems reviewed & are unremarkable except as noted in Subjective Physical Exam 2 Physical Exam: Constitutional: No acute distress HEENT: PERRLA, positive trach Respiratory system: Decreased air entry bilaterally, no wheeze, no rhonchi, positive crackles right lower lobe CVS: S1-S2 positive, no murmurs or gallops, irregular Abdomen: Soft, nontender, nondistended, positive bowel sounds x4, obese Extremities: +2 pulses bilaterally radialis/ dorsalis pedis, no cyanosis, p ositive pitting edema right upper extremity Neuro: Awake alert oriented to self Psych: Flat mood and affect G/U: Positive [place] Skin: no rashes, warm and dry Lymphatic: no cervical or axillary lymphadenopathy Results & Data Results & Data Vital Signs (Past 12 Hours) Vital Signs Temp Pulse Resp BP Pulse Ox O2 Del Method FiO2 10/14/24 05:24 131 H 24 98 10/14/24 05:21 133 H 25 H 98 10/14/24 05:12 116 H 24 98 10/14/24 05:03 129 H 21 98 10/14/24 05:02 160/114 H 10/14/24 05:02 160/114 H 10/14/24 05:02 160/114 H 10/14/24 04:54 128 H 21 97 10/14/24 04:42 132 H 24 98 10/14/24 04:39 125 H 27 H 98 10/14/24 04:21 119 H 26 H 97 10/14/24 04:18 113 H 144/111 H 10/14/24 04:12 125 H 24 98 10/14/24 04:09 135 H 24 97 10/14/24 04:00 144/111 H 10/14/24 04:00 40 10/14/24 03:54 123 H 24 96 10/14/24 03:42 135 H 24 97 10/14/24 03:42 138 H 151/112 H 10/14/24 03:33 121 H 25 H 96 10/14/24 03:30 126 H 24 96 10/14/24 03:12 136 H 25 H 98 10/14/24 03:00 151/112 H 10/14/24 03:00 151/112 H 10/14/24 02:54 119 H 24 97 10/14/24 02:39 110 H 24 97 10/14/24 02:32 118 H 24 94 40 10/14/24 02:09 121 H 24 96 10/14/24 02:06 122 H 24 96 10/14/24 02:03 113 H 24 96 10/14/24 02:00 92 H 24 95 10/14/24 02:00 156/106 H 10/14/24 01:57 115 H 24 96 10/14/24 01:54 115 H 24 96 10/14/24 01:00 156/91 H 10/14/24 01:00 156/91 H 10/14/24 01:00 100 H 24 95 10/14/24 00:57 105 H 24 95 10/14/24 00:51 114 H 24 95 10/14/24 00:24 104 H 24 96 10/14/24 00:21 117 H 24 95 10/14/24 00:18 109 H 24 96 10/14/24 00:15 102 H 24 98 10/14/24 00:12 103 H 24 96 10/14/24 00:09 103 H 24 97 10/14/24 00:06 120 H 24 96 10/14/24 00:03 108 H 24 96 10/14/24 00:01 169/92 H 10/14/24 00:01 169/92 H 10/14/24 00:01 169/92 H 10/14/24 00:01 169/92 H 10/14/24 00:01 169/92 H 10/14/24 00:00 105 H 26 H 95 10/14/24 00:00 40 10/13/24 23:42 125 H 24 96 10/13/24 23:24 108 H 29 H 95 10/13/24 23:21 128 H 24 95 10/13/24 23:18 118 H 24 94 10/13/24 23:15 119 H 24 94 10/13/24 23:12 136 H 24 95 10/13/24 23:09 127 H 25 H 97 10/13/24 23:06 138 H 24 95 10/13/24 23:03 113 H 24 95 10/13/24 23:00 161/94 H 10/13/24 23:00 161/94 H 10/13/24 22:57 125 H 24 96 10/13/24 22:51 109 H 27 H 95 10/13/24 22:48 116 H 24 94 10/13/24 22:42 109 H 24 94 10/13/24 22:33 121 H 24 95 10/13/24 22:27 121 H 24 96 10/13/24 22:24 121 H 24 96 10/13/24 22:15 113 H 24 96 10/13/24 22:12 114 H 24 96 10/13/24 22:09 116 H 24 96 10/13/24 22:00 167/94 H 10/13/24 22:00 167/94 H 10/13/24 22:00 113 H 24 96 40 10/13/24 21:54 105 H 19 99 10/13/24 21:42 115 H 24 96 10/13/24 21:39 109 H 24 96 10/13/24 21:36 101 H 24 96 10/13/24 21:30 123 H 23 96 10/13/24 21:03 96 H 24 96 10/13/24 21:00 169/122 H 10/13/24 21:00 91 H 24 96 10/13/24 20:48 91 H 28 H 96 10/13/24 20:45 92 H 24 94 10/13/24 20:42 88 24 94 10/13/24 20:39 82 24 95 10/13/24 20:33 89 24 95 10/13/24 20:31 36.9 C 10/13/24 20:12 87 24 95 10/13/24 20:09 87 24 95 10/13/24 20:00 Mechanical Vent 40 10/13/24 20:00 40 10/13/24 20:00 159/81 H 10/13/24 20:00 159/81 H 10/13/24 20:00 89 24 95 10/13/24 19:54 92 H 24 96 10/13/24 19:48 93 H 24 95 Laboratory Results 10/14/24 05:04 10/14/24 05:04 Coding Level of Care Code 88418 CRITICAL CARE 1ST 30-74M Diagnoses Pneumonia J18.9 Pleural effusion J90 Acute hypoxemic respiratory failure J96.01 Thrombocytopenia D69.6 History of tobacco abuse Z87.891 Respiratory failure J96.90 COPD (chronic obstructive pulmonary disease) with emphysema J43.9 Severe sepsis A41.9; R65.20 Acute non-ST elevation myocardial infarction (NSTEMI) I21.4 Alcohol withdrawal delirium F10.931
--- NOTE | 2024-10-14 07:58 | XRay Report ---
EXAM: XR chest 1V portable CLINICAL HISTORY: Tracheostomy. TECHNIQUE: An X-ray image of the chest is obtained in AP projection. COMPARISON: 10/09/2024. FINDINGS: Pulmonary Parenchyma: Blunted right costophrenic angle with regressive course of the hazy opacity in the right lower zone., residual oblique fissure thickening /encysted effusion The endotracheal tube has been removed. Tracheostomy in situ with distal tip 4.4 cm from [place]. The rest of the lungs are clear and well-expanded with no pulmonary infiltrate. Central lines in situ with tips in the SVC. Heart and Mediastinum: The cardiomediastinal silhouette is within normal limits. Bony Thorax: No acute osseous abnormality. Soft Tissues: Soft tissues overlying the chest wall are unremarkable. IMPRESSION: 1. Blunted right costophrenic angle with regressive course of the hazy opacity in the right lower zone., residual oblique fissure thickening /encysted effusion ( regression) 2. The endotracheal tube has been removed. 3. Tracheostomy in situ with distal tip 4.4 cm from [place]. 4. Central lines in situ with tips in the SVC. Electronically signed by Carl Meraz 10-14-2024 07:57 AM
--- NOTE | 2024-10-14 09:23 | Hospitalist Progress Note ---
Date of Service October 14, 2024 Assessment & Plan (1) Respiratory failure: Plan: Due to MRSA and Legionella pneumonia Bronchial lavage growing MRSA Urine Legionella positive completed linezolid and zithromax Consulted infectious disease. bronchoscopy showing significant mucus plugging, cleared out - repeat bronchoscopy still with mucus plugging -tracheostomy -pt breathing off vent (2) COPD (chronic obstructive pulmonary disease) with emphysema: Plan: Budesonide twice daily Solu-medrol (3) Atrial fibrillation: Plan: -amiodarone d/c'd - heparin drip d/c'd -xarelto started -plan for possible cardioversion (4) NAOMY (acute kidney injury): Plan: ATN due to septic shock Creatinine still rising Still oliguric/anuric Nephrology involved - HD as per nephrology renal function improving, holding off HD (5) Hypertension: Plan: -losartan on hold 2nd to hypotension (6) Acute hyponatremia: Plan: -Na+ 141 (7) Acute non-ST elevation myocardial infarction (NSTEMI): Plan: Most likely demand ischemia due to hypoxia and tachycardia. (8) Alcohol withdrawal delirium: Plan: Currently on propofol and fentanyl Thiamine and folic acid Plan This is a 64-year-old morbidly obese male with a history of COPD, hypertension who presents with severe respiratory distress, now on BiPAP. Chest x-ray showed pneumonia. He was given DuoNebs, steroids, ceftriaxone in the emergency room. Labs significant for lactic acidosis of 5, anion gap metabolic acidosis, hyponatremia, hypokalemia, elevated troponin, elevated procalcitonin. His blood pressure dropped while in the ER. He is being admitted to the ICU with acute hypoxic respiratory failure, pneumonia with severe sepsis Admission and Anticipated Discharge Date Admission Date: September 29, 2024 Subjective No events overnight, pt resting comfortably in bed. Review of Systems Review of Systems: CONST: Negative for fever, body aches and chills. HENT: Tracheostomy EYES: Negative for discharge/pain or vision changes. RESP: Negative for cough/hemoptysis and shortness of breath. CV: Negative chest pain, difficulty breathing, palpitations. ABD: Negative pain, nausea, vomiting. : Negative increase frequency, dysuria, blood in urine or stool. MUSC: Negative for muscle aches, edema. SKIN: Negative rash, lesions/sores. NEURO: Negative headache, dizziness, weakness. Physical Exam Physical Exam: GENERAL APPEARANCE NAD EYES lids/conjunctiva normal. EARS/NOSE/THROAT Mucous membranes moist, nares normal, lips/teeth normal uvula midline without oral pharyngeal erythema, exudate or swelling TMs normal bilaterally. No lymphangitis/lymphedema. HEAD/NECK Tracheostomy RESPIRATORY respiratory effort normal, speaks in full sentences, no tripod position, no accessory muscle use. Lungs clear to auscultation without rhonchi, wheezes, rales CARDIAC Regular rate and rhythm, no edema. ABDOMINAL Soft, ND/NT. No evidence of fluid wave. No pulsatile masses on exam, rebound tenderness, Platt sign or pain over Mcburney's point. MUSCLES/EXTREMITIES No abnormal range of motion, no swelling. SKIN Warm, pink and dry. No rashes, dermatoses, petechiae or lesions. NEUROLOGICAL Sedated PSYCH Normal mood and affect. Judgement/competence is appropriate Results & Data Results & Data Vital Signs (Past 12 Hours) Vital Signs Temp Pulse Pulse Resp BP Pulse Ox O2 Del Method 10/14/24 08:55 118 H 22 95 Trach Collar 10/14/24 08:38 37.0 C 10/14/24 06:56 120 H 26 H 96 10/14/24 05:24 131 H 24 98 10/14/24 05:21 133 H 25 H 98 10/14/24 05:12 116 H 24 98 10/14/24 05:03 129 H 21 98 10/14/24 05:02 160/114 H 10/14/24 05:02 160/114 H 10/14/24 05:02 160/114 H 10/14/24 04:54 128 H 21 97 10/14/24 04:42 132 H 24 98 10/14/24 04:39 125 H 27 H 98 10/14/24 04:21 119 H 26 H 97 10/14/24 04:18 113 H 144/111 H 10/14/24 04:12 125 H 24 98 10/14/24 04:09 135 H 24 97 10/14/24 04:00 144/111 H 10/14/24 04:00 10/14/24 03:54 123 H 24 96 10/14/24 03:42 135 H 24 97 10/14/24 03:42 138 H 151/112 H 10/14/24 03:33 121 H 25 H 96 10/14/24 03:30 126 H 24 96 10/14/24 03:12 136 H 25 H 98 10/14/24 03:00 151/112 H 10/14/24 03:00 151/112 H 10/14/24 02:54 119 H 24 97 10/14/24 02:39 110 H 24 97 10/14/24 02:32 118 H 24 94 10/14/24 02:09 121 H 24 96 10/14/24 02:06 122 H 24 96 10/14/24 02:03 113 H 24 96 10/14/24 02:00 92 H 24 95 10/14/24 02:00 156/106 H 10/14/24 01:57 115 H 24 96 10/14/24 01:54 115 H 24 96 10/14/24 01:00 156/91 H 10/14/24 01:00 156/91 H 10/14/24 01:00 100 H 24 95 10/14/24 00:57 105 H 24 95 10/14/24 00:51 114 H 24 95 10/14/24 00:24 104 H 24 96 10/14/24 00:21 117 H 24 95 10/14/24 00:18 109 H 24 96 10/14/24 00:15 102 H 24 98 10/14/24 00:12 103 H 24 96 10/14/24 00:09 103 H 24 97 10/14/24 00:06 120 H 24 96 10/14/24 00:03 108 H 24 96 10/14/24 00:01 169/92 H 10/14/24 00:01 169/92 H 10/14/24 00:01 169/92 H 10/14/24 00:01 169/92 H 10/14/24 00:01 169/92 H 10/14/24 00:00 105 H 26 H 95 10/14/24 00:00 10/13/24 23:42 125 H 24 96 10/13/24 23:24 108 H 29 H 95 10/13/24 23:21 128 H 24 95 10/13/24 23:18 118 H 24 94 10/13/24 23:15 119 H 24 94 10/13/24 23:12 136 H 24 95 10/13/24 23:09 127 H 25 H 97 10/13/24 23:06 138 H 24 95 10/13/24 23:03 113 H 24 95 10/13/24 23:00 161/94 H 10/13/24 23:00 161/94 H 10/13/24 22:57 125 H 24 96 10/13/24 22:51 109 H 27 H 95 10/13/24 22:48 116 H 24 94 10/13/24 22:42 109 H 24 94 10/13/24 22:33 121 H 24 95 10/13/24 22:27 121 H 24 96 10/13/24 22:24 121 H 24 96 10/13/24 22:15 113 H 24 96 10/13/24 22:12 114 H 24 96 10/13/24 22:09 116 H 24 96 10/13/24 22:00 167/94 H 10/13/24 22:00 167/94 H 10/13/24 22:00 113 H 24 96 10/13/24 21:54 105 H 19 99 10/13/24 21:42 115 H 24 96 10/13/24 21:39 109 H 24 96 10/13/24 21:36 101 H 24 96 10/13/24 21:30 123 H 23 96 O2 Flow Rate FiO2 10/14/24 08:55 12 40 10/14/24 08:38 10/14/24 06:56 40 10/14/24 05:24 10/14/24 05:21 10/14/24 05:12 10/14/24 05:03 10/14/24 05:02 10/14/24 05:02 10/14/24 05:02 10/14/24 04:54 10/14/24 04:42 10/14/24 04:39 10/14/24 04:21 10/14/24 04:18 10/14/24 04:12 10/14/24 04:09 10/14/24 04:00 10/14/24 04:00 40 10/14/24 03:54 10/14/24 03:42 10/14/24 03:42 10/14/24 03:33 10/14/24 03:30 10/14/24 03:12 10/14/24 03:00 10/14/24 03:00 10/14/24 02:54 10/14/24 02:39 10/14/24 02:32 40 10/14/24 02:09 10/14/24 02:06 10/14/24 02:03 10/14/24 02:00 10/14/24 02:00 10/14/24 01:57 10/14/24 01:54 10/14/24 01:00 10/14/24 01:00 10/14/24 01:00 10/14/24 00:57 10/14/24 00:51 10/14/24 00:24 10/14/24 00:21 10/14/24 00:18 10/14/24 00:15 10/14/24 00:12 10/14/24 00:09 10/14/24 00:06 10/14/24 00:03 10/14/24 00:01 10/14/24 00:01 10/14/24 00:01 10/14/24 00:01 10/14/24 00:01 10/14/24 00:00 10/14/24 00:00 40 10/13/24 23:42 10/13/24 23:24 10/13/24 23:21 10/13/24 23:18 10/13/24 23:15 10/13/24 23:12 10/13/24 23:09 10/13/24 23:06 10/13/24 23:03 10/13/24 23:00 10/13/24 23:00 10/13/24 22:57 10/13/24 22:51 10/13/24 22:48 10/13/24 22:42 10/13/24 22:33 10/13/24 22:27 10/13/24 22:24 10/13/24 22:15 10/13/24 22:12 10/13/24 22:09 10/13/24 22:00 10/13/24 22:00 10/13/24 22:00 40 10/13/24 21:54 10/13/24 21:42 10/13/24 21:39 10/13/24 21:36 10/13/24 21:30 PG Care Time/CCT Total # of Minutes Spent Total Time Spent with Patient: Total time spent is greater than 50% in coordination of care (as documented) at patient's floor/unit and/or counseling patient: Coding Level of Care Code 03930 SUB INP/OBS CARE MIN Diagnoses Respiratory failure J96.90 COPD (chronic obstructive pulmonary disease) with emphysema J43.9 Atrial fibrillation I48.91 NAOMY (acute kidney injury) N17.9 Hypertension I10 Acute hyponatremia E87.1 Acute non-ST elevation myocardial infarction (NSTEMI) I21.4 Alcohol withdrawal delirium F10.931
--- NOTE | 2024-10-14 09:49 | Nephrology Progress Note ---
Date of Service October 14, 2024 Assessment & Plan (1) NAOMY (acute kidney injury): (2) Legionella pneumonia: (3) MRSA pneumonia: (4) ARDS (adult respiratory distress syndrome): (5) Atrial fibrillation: (6) Severe sepsis: (7) Acute hypoxemic respiratory failure: (8) Acute hyponatremia: Plan 64 year-old male with PMH of morbid obesity, hypertension, and COPD admitted to [facility] on 09/29/24 with respiratory failure, septic shock due to multifocal pneumonia due to MRSA and legionella , requiring intubation and pressor. On admission kidney function was normal ( cr 0.8 mg/dl) but rapidly developed NAOMY in the setting of sepsis, secondary to ATN. Urine microscopy demonstrating WBC, RBC, hyaline and granular casts. Imaging was negative for postrenal obstruction. He also became more than 30 L fluid overloaded. Started on hemodialysis on 10/02/24 and had daily dialysis for fluid removal until yesterday. He is ventilator dependent and had tracheostomy placed, has has been off pressor. Cr improved to 1.4 mg/dl, Na 149. Has been net negative more than 4 L overnight. BP elevated. --free water 150 ml q 2 h. Continue to monitor kidney function and electrolytes while in the diuresis phase of recovering from NAOMY --Dose medications for GFR less than 30 --Continue to avoid all nephrotoxic medications. Admission and Anticipated Discharge Date Admission Date: September 29, 2024 Subjective Jamie was seen and evaluated this morning. Has been breathing on his own, seems comfortable. Blood pressure elevated. Continue to have great urine output more than 5 L, lasix stopped. Kidney function continues to improve, cr down to 1.4 mg/dl. Na 149 Review of Systems Review of Systems: All systems reviewed & are unremarkable except as noted in Subjective Physical Exam Constitutional: WD/WN, vitals as above + ill appearing; no acute distress Eyes: + anicteric sclerae Neck: trach collar Respiratory: Auscultation: + crackles Cardiovascular: Rate/Rhythm: regular rate and regular rhythm Heart Sounds: normal S1 and normal S2 Extremities: no edema Neurologic: no focal motor deficits Psychiatric: Orientation: alert and oriented x 3 Results & Data Vital Signs (Past 12 Hours) Vital Signs Temp Pulse Pulse Resp BP Pulse Ox O2 Del Method 10/14/24 08:55 118 H 22 95 Trach Collar 10/14/24 08:38 37.0 C 10/14/24 06:56 120 H 26 H 96 10/14/24 05:24 131 H 24 98 10/14/24 05:21 133 H 25 H 98 10/14/24 05:12 116 H 24 98 10/14/24 05:03 129 H 21 98 10/14/24 05:02 160/114 H 10/14/24 05:02 160/114 H 10/14/24 05:02 160/114 H 10/14/24 04:54 128 H 21 97 10/14/24 04:42 132 H 24 98 10/14/24 04:39 125 H 27 H 98 10/14/24 04:21 119 H 26 H 97 10/14/24 04:18 113 H 144/111 H 10/14/24 04:12 125 H 24 98 10/14/24 04:09 135 H 24 97 10/14/24 04:00 144/111 H 10/14/24 04:00 10/14/24 03:54 123 H 24 96 10/14/24 03:42 135 H 24 97 10/14/24 03:42 138 H 151/112 H 10/14/24 03:33 121 H 25 H 96 10/14/24 03:30 126 H 24 96 10/14/24 03:12 136 H 25 H 98 10/14/24 03:00 151/112 H 10/14/24 03:00 151/112 H 10/14/24 02:54 119 H 24 97 10/14/24 02:39 110 H 24 97 10/14/24 02:32 118 H 24 94 10/14/24 02:09 121 H 24 96 10/14/24 02:06 122 H 24 96 10/14/24 02:03 113 H 24 96 10/14/24 02:00 92 H 24 95 10/14/24 02:00 156/106 H 10/14/24 01:57 115 H 24 96 10/14/24 01:54 115 H 24 96 10/14/24 01:00 156/91 H 10/14/24 01:00 156/91 H 10/14/24 01:00 100 H 24 95 10/14/24 00:57 105 H 24 95 10/14/24 00:51 114 H 24 95 10/14/24 00:24 104 H 24 96 10/14/24 00:21 117 H 24 95 10/14/24 00:18 109 H 24 96 10/14/24 00:15 102 H 24 98 10/14/24 00:12 103 H 24 96 10/14/24 00:09 103 H 24 97 10/14/24 00:06 120 H 24 96 10/14/24 00:03 108 H 24 96 10/14/24 00:01 169/92 H 10/14/24 00:01 169/92 H 10/14/24 00:01 169/92 H 10/14/24 00:01 169/92 H 10/14/24 00:01 169/92 H 10/14/24 00:00 105 H 26 H 95 10/14/24 00:00 10/13/24 23:42 125 H 24 96 10/13/24 23:24 108 H 29 H 95 10/13/24 23:21 128 H 24 95 10/13/24 23:18 118 H 24 94 10/13/24 23:15 119 H 24 94 10/13/24 23:12 136 H 24 95 10/13/24 23:09 127 H 25 H 97 10/13/24 23:06 138 H 24 95 10/13/24 23:03 113 H 24 95 10/13/24 23:00 161/94 H 10/13/24 23:00 161/94 H 10/13/24 22:57 125 H 24 96 10/13/24 22:51 109 H 27 H 95 10/13/24 22:48 116 H 24 94 10/13/24 22:42 109 H 24 94 10/13/24 22:33 121 H 24 95 10/13/24 22:27 121 H 24 96 10/13/24 22:24 121 H 24 96 10/13/24 22:15 113 H 24 96 10/13/24 22:12 114 H 24 96 10/13/24 22:09 116 H 24 96 10/13/24 22:00 167/94 H 10/13/24 22:00 167/94 H 10/13/24 22:00 113 H 24 96 10/13/24 21:54 105 H 19 99 O2 Flow Rate FiO2 10/14/24 08:55 12 40 10/14/24 08:38 10/14/24 06:56 40 08/04/25 05:24 10/14/24 05:21 10/14/24 05:12 10/14/24 05:03 10/14/24 05:02 10/14/24 05:02 10/14/24 05:02 10/14/24 04:54 10/14/24 04:42 10/14/24 04:39 10/14/24 04:21 10/14/24 04:18 10/14/24 04:12 10/14/24 04:09 10/14/24 04:00 10/14/24 04:00 40 10/14/24 03:54 10/14/24 03:42 10/14/24 03:42 10/14/24 03:33 10/14/24 03:30 10/14/24 03:12 10/14/24 03:00 10/14/24 03:00 10/14/24 02:54 10/14/24 02:39 10/14/24 02:32 40 10/14/24 02:09 10/14/24 02:06 10/14/24 02:03 10/14/24 02:00 10/14/24 02:00 10/14/24 01:57 10/14/24 01:54 10/14/24 01:00 10/14/24 01:00 10/14/24 01:00 10/14/24 00:57 10/14/24 00:51 10/14/24 00:24 10/14/24 00:21 10/14/24 00:18 10/14/24 00:15 10/14/24 00:12 10/14/24 00:09 10/14/24 00:06 10/14/24 00:03 10/14/24 00:01 10/14/24 00:01 10/14/24 00:01 10/14/24 00:01 10/14/24 00:01 10/14/24 00:00 10/14/24 00:00 40 10/13/24 23:42 10/13/24 23:24 10/13/24 23:21 10/13/24 23:18 10/13/24 23:15 10/13/24 23:12 10/13/24 23:09 10/13/24 23:06 10/13/24 23:03 10/13/24 23:00 10/13/24 23:00 10/13/24 22:57 10/13/24 22:51 10/13/24 22:48 10/13/24 22:42 10/13/24 22:33 10/13/24 22:27 10/13/24 22:24 10/13/24 22:15 10/13/24 22:12 10/13/24 22:09 10/13/24 22:00 10/13/24 22:00 10/13/24 22:00 40 10/13/24 21:54 PG Care Time/CCT Total # of Minutes Spent Total Time Spent with Patient: Total time spent is greater than 50% in coordination of care (as documented) at patient's floor/unit and/or counseling patient: Coding Level of Care Code 82599 SUB INP/OBS CARE 2/35MIN Diagnoses NAOMY (acute kidney injury) N17.9 Legionella pneumonia A48.1 MRSA pneumonia J15.212 ARDS (adult respiratory distress syndrome) J80 Atrial fibrillation I48.91 Severe sepsis A41.9; R65.20 Acute hypoxemic respiratory failure J96.01 Acute hyponatremia E87.1
[2024-10-14] MEDS: TUBE FEEDING WATER FLUSH NG SCH (10:39)
[2024-10-14] MEDS: METOPROLOL TARTRATE 25 MG TAB PO SCH (10:40)
[2024-10-14 14:58] LABS: Anion Gap 7.0 (3-11); Blood Urea Nitrogen 73.0 mg/dl (6-23); Calcium 8.8 mg/dl (8.6-10.3); Carbon Dioxide 33.0 mmol/L (21-32); Chloride 113.0 mmol/L (98-107); Creatinine Clr Calc Pharmacy 80.2 ml/min; Glucose 141.0 mg/dl (70-99(Fasting)); Potassium 3.8 mmol/L (3.5-5.1); Sodium 153.0 mmol/L (136-145)
[2024-10-14] MEDS: DEXTROSE 5% 1,000 ML IV SCH (15:44)
--- NOTE | 2024-10-14 15:52 | XRay Report ---
KUB CLINICAL HISTORY: Feeding tube placement. FINDINGS: An AP portable upright view of the lower chest and upper abdomen is compared to study dated 10/10/2024. A feeding tube is in place. The tip projects below the diaphragm over the mid stomach. Th ere is no evidence of bowel obstruction. No intraperitoneal free air is suggested below the diaphragm . Pleural fluid and consolidative change is noted at the lung bases. IMPRESSION: A feeding tube is in place as above. Electronically signed by: Stan Pang M.D. 10/14/2024 3:51 PM
[2024-10-14] MEDS: RIVAROXABAN 20 MG TAB PO SCH (15:58)
[2024-10-14] MEDS ORDERED: MELATONIN 3 MG TAB PO PRN (19:51)
[2024-10-15 04:11] LABS: Hematocrit (blood only) 36.8 % (42.0-52.0); Hemoglobin 11.9 g/dl (14.0-18.0); Immature Granulocytes # (auto) 0.03 K/uL (0.01-0.20); Immature Granulocytes % (auto) 0.3 %; Mean Corpuscular Hemoglobin 32.0 pg (25.0-34.0); Mean Corpuscular Volume 98.9 fL (80.0-100.0); Platelet Count 120 K/uL (130-400); RDW Standard Deviation 50.4 fL (36.4-46.3); Red Blood Count 3.72 M/uL (4.70-6.10); White Blood Count 10.04 K/ul (4.8-10.8)
[2024-10-15 04:23] LABS: Anion Gap 6.0 (3-11); Blood Urea Nitrogen 60.0 mg/dl (6-23); Calcium 8.9 mg/dl (8.6-10.3); Carbon Dioxide 34.0 mmol/L (21-32); Chloride 113.0 mmol/L (98-107); Creatinine Clr Calc Pharmacy 92.3 ml/min; Glucose 152.0 mg/dl (70-99(Fasting)); Potassium 3.4 mmol/L (3.5-5.1); Sodium 153.0 mmol/L (136-145)
[2024-10-15] MEDS: POTASSIUM CHLORIDE 20 MEQ/15 ML UDC PO STA (05:58)
--- NOTE | 2024-10-15 07:26 | Critical Care Progress Note ---
Date of Service October 15, 2024 Assessment & Plan (1) Pneumonia: (2) Pleural effusion: (3) Acute hypoxemic respiratory failure: (4) Thrombocytopenia: (5) History of tobacco abuse: (6) Respiratory failure: (7) COPD (chronic obstructive pulmonary disease) with emphysema: (8) Severe sepsis: (9) Acute non-ST elevation myocardial infarction (NSTEMI): (10) Alcohol withdrawal delirium: Plan Impression: 64-year-old male with severe obstructive lung disease at baseline admitted with multifocal pneumonia and hypoxemic respiratory failure with concomitant lactic acidosis. Lactate is improved with IV fluids. He is currently on antibiotics. He was placed on noninvasive positive pressure ventilation admitted to the ICU. Recommendations: Neurologic: Midazolam pushes as needed agitation/restlessness MRI brain 09/30/2024: Chronic right cerebellar infarct, no evidence of intracranial mass, no acute changes Repeat CT head 10/06/2024: No acute findings -- S/p acute alcohol withdrawal History of heavy alcohol use Continue with thiamine and folic acid Cardiovascular: 2D echo 09/30/2024: Moderate LV dysfunction, EF 40%, RV not well-visualized --A-fib RVR with new onset CHF Amiodarone drip started on 09/30/2024 transition to p.o. 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 -- S/p septic shock Sources is multifocal pneumonia --> BAL growing Staph aureus Urine Legionella positive Completed the course of antibiotics Vasopressor support to keep MAP greater than 65 -- Elevated troponins Likely type II TN Continue to trend --Hypertension On losartan at home --Prolonged QTc Avoid QT prolonging medication Continue to monitor Respiratory: CTA chest 09/29/2024 personally reviewed: Centrilobular and paraseptal emphysema appreciated bilaterally Dense consolidative process appreciated in the right upper lobe as well as right middle lobe Minimal right-sided pleural effusion No significant mediastinal lymphadenopathy -- TDRF Intubated 09/30/2024 --> s/p trach 10/10/[address] Gillette Likely secondary to multifocal pneumonia Bronc culture from 09/30/2024 growing MRSA S/p repeat bronc 10/02/2024, thin clear secretions obstructing the right lower lobe which were suctioned out Nasal MRSA positive --Small right-sided pleural effusion Appreciated on POCUS 10/01/2024 -- COPD with emphysema On Trelegy 100 at home Continue with nebulized budesonide and Perforomist GI: -- Occult blood positive with loose stools H&H seems to be stable Continue to monitor -- Mild transaminitis Continue to trend Renal: -- NAOMY --> improving Dialysis started 10/02/2024 --> dialysis catheter discontinued Diuresing with Lasix Nephrology has been consulted Endocrine: ICU hypoglycemia protocol ID: --Severe multifocal community-acquired pneumonia Finished the course of antibiotics, azithromycin as well as linezolid and on 10/12/2024 Procalcitonin 29.2 MRSA positive QTc 418 Rocephin changed to Zosyn on 09/30/2024 Vancomycin changed to ceftaroline on 10/01/2024 Bronch culture growing Staph aureus Urine Legionella antigen came positive on 10/03/2024 Repeat blood culture 10/06/2024, negative to date Heme-onc: -- Thrombocytopenia Likely secondary to sepsis versus antibiotics Continue to trend Serotonin release assay has been ordered by 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 Will give 2 L IV D5 water with 30 mill equivalents of potassium in 1 bag Continue with free water flushes. Repeat BMP later today Discontinue PhosLo given that the phosphorus is on the lower side DC amlodipine Increase diltiazem to 60 mg Q6, continue with metoprolol 50 Q8 Will try to deflate the cuff. Swallowing eval tomorrow. Continue with trach collar Placement when family ready to LTAC I spent more than 50 minutes looking in the chart, images, discussing the plan of care with the patient, RN as well as primary team Please note the above document was generated using voice recognition software. It may contain grammatical, syntax or spelling errors.Any formal questions or concerns about the content, text or information contained within the body of this dictation should be directly addressed to the provider for clarification. Admission and Anticipated Discharge Date Admission Date: September 29, 2024 Subjective Patient seen and examined at bedside. No acute distress, no adverse events overnight He was on the bed in a sitting position. Denies any chest pain, no chest discomfort No nausea or vomiting Has been afebrile Patient was able to tolerate trach collar all night. Review of Systems 2 Review of Systems: All systems reviewed & are unremarkable except as noted in Subjective Physical Exam 2 Physical Exam: Constitutional: No acute distress HEENT: PERRLA, positive trach Respiratory system: Decreased air entry bilaterally, no wheeze, no rhonchi, positive crackles right lower lobe CVS: S1-S2 positive, no murmurs or gallops, irregular Abdomen: Soft, nontender, nondistended, positive bowel sounds x4, obese Extremities: +2 pulses bilaterally radialis/ dorsalis pedis, no cyanosis, p ositive pitting edema right upper extremity Neuro: Awake alert oriented to self Psych: Good mood and affect G/U: Positive [place] Skin: no rashes, warm and dry Lymphatic: no cervical or axillary lymphadenopathy Results & Data Results & Data Vital Signs (Past 12 Hours) Vital Signs Temp Pulse Pulse Resp BP Pulse Ox O2 Del Method 10/15/24 06:06 110 H 18 99 10/15/24 06:00 151/95 H 10/15/24 05:51 105 H 15 98 10/15/24 05:48 103 H 17 98 10/15/24 05:33 101 H 12 98 10/15/24 05:21 81 16 97 10/15/24 05:00 140/74 10/15/24 05:00 140/74 10/15/24 04:54 86 19 95 10/15/24 04:48 88 21 91 10/15/24 04:45 84 22 91 10/15/24 04:42 92 H 20 92 10/15/24 04:36 85 21 92 10/15/24 04:33 86 19 92 10/15/24 04:30 96 H 22 92 10/15/24 04:24 102 H 22 92 10/15/24 04:21 94 H 26 H 92 10/15/24 04:06 107 H 17 96 10/15/24 04:00 139/88 10/15/24 04:00 139/88 10/15/24 03:51 100 H 15 91 10/15/24 03:42 103 H 19 93 10/15/24 03:39 92 H 15 94 10/15/24 03:03 99 H 11 L 94 10/15/24 03:00 37 C 10/15/24 03:00 145/93 H 10/15/24 03:00 145/93 H 10/15/24 03:00 145/93 H 10/15/24 03:00 109 H 15 95 10/15/24 02:42 109 H 16 94 10/15/24 02:24 114 H 17 96 10/15/24 02:18 116 H 12 97 10/15/24 02:09 122 H 13 97 10/15/24 02:03 119 H 12 97 10/15/24 02:00 165/104 H 10/15/24 02:00 165/104 H 10/15/24 02:00 165/104 H 10/15/24 01:54 117 H 10 L 97 10/15/24 01:51 128 H 14 97 10/15/24 01:48 119 H 16 96 10/15/24 01:45 128 H 12 98 10/15/24 01:42 119 H 10 L 98 10/15/24 01:27 115 H 11 L 97 10/15/24 01:24 109 H 14 96 10/15/24 01:12 125 H 11 L 97 10/15/24 01:09 102 H 8 L 97 10/15/24 01:03 115 H 11 L 98 10/15/24 01:00 185/121 H 10/15/24 01:00 185/121 H 10/15/24 01:00 116 H 11 L 98 10/15/24 00:57 117 H 12 97 10/15/24 00:51 108 H 12 98 10/15/24 00:42 117 H 14 97 10/15/24 00:27 107 H 12 99 10/15/24 00:18 102 H 12 99 10/15/24 00:15 110 H 18 99 10/15/24 00:11 104 H 18 97 Trach Collar 10/15/24 00:09 109 H 8 L 98 10/15/24 00:06 99 H 11 L 99 10/15/24 00:00 121 H 14 99 10/15/24 00:00 155/96 H 10/15/24 00:00 155/96 H 10/14/24 23:57 109 H 14 98 10/14/24 23:45 104 H 10 L 98 10/14/24 23:30 101 H 9 L 98 10/14/24 23:12 87 10 L 99 10/14/24 23:00 170/92 H 10/14/24 23:00 93 H 16 98 10/14/24 22:54 101 H 13 99 10/14/24 22:45 99 H 19 98 10/14/24 22:30 98 H 12 98 10/14/24 22:15 91 H 14 98 10/14/24 21:06 88 19 94 10/14/24 21:00 36.9 C 10/14/24 20:57 89 19 94 10/14/24 20:54 90 19 93 10/14/24 20:39 92 H 19 93 10/14/24 20:21 103 H 22 95 10/14/24 20:18 105 H 21 97 10/14/24 20:15 98 H 17 97 10/14/24 20:14 114 H 20 97 Trach Collar 10/14/24 20:12 102 H 15 98 10/14/24 20:06 103 H 16 99 10/14/24 20:00 157/105 H 10/14/24 20:00 97 H 20 10/14/24 19:54 99 H 20 97 10/14/24 19:51 105 H 16 97 10/14/24 19:39 109 H 15 96 10/14/24 19:36 106 H 15 96 O2 Flow Rate FiO2 10/15/24 06:06 10/15/24 06:00 10/15/24 05:51 10/15/24 05:48 10/15/24 05:33 10/15/24 05:21 10/15/24 05:00 10/15/24 05:00 10/15/24 04:54 10/15/24 04:48 10/15/24 04:45 10/15/24 04:42 10/15/24 04:36 10/15/24 04:33 10/15/24 04:30 10/15/24 04:24 10/15/24 04:21 10/15/24 04:06 10/15/24 04:00 10/15/24 04:00 10/15/24 03:51 10/15/24 03:42 10/15/24 03:39 10/15/24 03:03 10/15/24 03:00 10/15/24 03:00 10/15/24 03:00 10/15/24 03:00 10/15/24 03:00 10/15/24 02:42 10/15/24 02:24 10/15/24 02:18 10/15/24 02:09 10/15/24 02:03 10/15/24 02:00 10/15/24 02:00 10/15/24 02:00 10/15/24 01:54 10/15/24 01:51 10/15/24 01:48 10/15/24 01:45 10/15/24 01:42 10/15/24 01:27 10/15/24 01:24 10/15/24 01:12 10/15/24 01:09 10/15/24 01:03 10/15/24 01:00 10/15/24 01:00 10/15/24 01:00 10/15/24 00:57 10/15/24 00:51 10/15/24 00:42 10/15/24 00:27 10/15/24 00:18 10/15/24 00:15 10/15/24 00:11 10 30 10/15/24 00:09 10/15/24 00:06 10/15/24 00:00 10/15/24 00:00 10/15/24 00:00 10/14/24 23:57 10/14/24 23:45 10/14/24 23:30 10/14/24 23:12 10/14/24 23:00 10/14/24 23:00 10/14/24 22:54 10/14/24 22:45 10/14/24 22:30 10/14/24 22:15 10/14/24 21:06 10/14/24 21:00 10/14/24 20:57 10/14/24 20:54 10/14/24 20:39 10/14/24 20:21 10/14/24 20:18 10/14/24 20:15 10/14/24 20:14 10 30 10/14/24 20:12 10/14/24 20:06 10/14/24 20:00 10/14/24 20:00 10/14/24 19:54 10/14/24 19:51 10/14/24 19:39 10/14/24 19:36 Laboratory Results 10/15/24 03:40 10/15/24 03:40 Coding Level of Care Code 94373 SUB INP/OBS CARE 3/50MIN Diagnoses Pneumonia J18.9 Pleural effusion J90 Acute hypoxemic respiratory failure J96.01 Thrombocytopenia D69.6 History of tobacco abuse Z87.891 Respiratory failure J96.90 COPD (chronic obstructive pulmonary disease) with emphysema J43.9 Severe sepsis A41.9; R65.20 Acute non-ST elevation myocardial infarction (NSTEMI) I21.4 Alcohol withdrawal delirium F10.931
--- NOTE | 2024-10-15 07:55 | XRay Report ---
EXAM: XR chest 1V portable CLINICAL HISTORY: Tracheostomy. TECHNIQUE: X-ray image of the chest obtained in Anteroposterior (AP) projection. COMPARISON: Prior X-ray dated 10/14/2024 for comparison. FINDINGS: Tracheostomy tube with tip 3.8 cm above [place]. NG tube barely seen, reaching left infradiaphragmatic, tip not seen Pulmonary Parenchyma: Unchanged hazy opacities in the right lower zone. Unchanged right fissural thickening/ encysted pleural effusion. No evidence of pleural effusion or pleural thickening. Heart and Mediastinum: Heart size and shape are normal. No mediastinal widening or masses. No hilar or mediastinal lymphadenopathy. Bony Thorax: Bony thorax appears intact without fractures or deformities. Soft Tissues: Soft tissues overlying the chest wall are unremarkable. IMPRESSION: 1. Tracheostomy tube with tip 3.8 cm above k[place]. 2. NG tube barely seen, reaching left infradiaphragmatic, tip not seen, unchanged. 3. Unchanged hazy opacities in the right lower zone. 4. Unchanged right fissural thickening/ encysted pleural effusion. 5. No interval changes. Electronically signed by Carl Meraz 10-15-2024 07:52 AM
[2024-10-15 08:46] LABS: Magnesium 1.5 mg/dl (1.7-2.4)
[2024-10-15] MEDS: POTASSIUM CHLORIDE 30 MEQ in DEXTROSE 5% 1,000 ML IV SCH (08:50)
[2024-10-15] MEDS: TUBE FEEDING WATER FLUSH GT SCH (08:50)
--- NOTE | 2024-10-15 09:49 | Hospitalist Progress Note ---
Date of Service October 15, 2024 Assessment & Plan (1) Respiratory failure: Plan: Due to MRSA and Legionella pneumonia Bronchial lavage growing MRSA Urine Legionella positive completed linezolid and zithromax Consulted infectious disease. bronchoscopy showing significant mucus plugging, cleared out - repeat bronchoscopy still with mucus plugging -tracheostomy -pt breathing off vent -trach collar tolerated overnight (2) COPD (chronic obstructive pulmonary disease) with emphysema: Plan: Budesonide twice daily xopenex (3) Atrial fibrillation: Plan: -amiodarone d/c'd - heparin drip d/c'd -xarelto started -placed on Cardizem 60mg Q6hrs and metoprolol (4) NAOMY (acute kidney injury): Plan: ATN due to septic shock Creatinine still rising Still oliguric/anuric Nephrology involved - HD as per nephrology renal function improving, holding off HD (5) Hypertension: Plan: -losartan on hold 2nd to hypotension (6) Acute hyponatremia: Plan: -Na+ 141 (7) Acute non-ST elevation myocardial infarction (NSTEMI): Plan: Most likely demand ischemia due to hypoxia and tachycardia. (8) Alcohol withdrawal delirium: Plan: Currently on propofol and fentanyl Thiamine and folic acid Plan This is a 64-year-old morbidly obese male with a history of COPD, hypertension who presents with severe respiratory distress, now on BiPAP. Chest x-ray showed pneumonia. He was given DuoNebs, steroids, ceftriaxone in the emergency room. Labs significant for lactic acidosis of 5, anion gap metabolic acidosis, hyponatremia, hypokalemia, elevated troponin, elevated procalcitonin. His blood pressure dropped while in the ER. He is being admitted to the ICU with acute hypoxic respiratory failure, pneumonia with severe sepsis LTAC placement Admission and Anticipated Discharge Date Admission Date: September 29, 2024 Subjective Pt tolerated trach collar last night. Review of Systems Review of Systems: CONST: Negative for fever, body aches and chills. HENT: Tracheostomy EYES: Negative for discharge/pain or vision changes. RESP: Negative for cough/hemoptysis and shortness of breath. CV: Negative chest pain, difficulty breathing, palpitations. ABD: Negative pain, nausea, vomiting. : Negative increase frequency, dysuria, blood in urine or stool. MUSC: Negative for muscle aches, edema. SKIN: Negative rash, lesions/sores. NEURO: Negative headache, dizziness, weakness. Physical Exam Physical Exam: GENERAL APPEARANCE NAD EYES lids/conjunctiva normal. EARS/NOSE/THROAT Mucous membranes moist, nares normal, lips/teeth normal uvula midline without oral pharyngeal erythema, exudate or swelling TMs normal bilaterally. No lymphangitis/lymphedema. HEAD/NECK Tracheostomy RESPIRATORY respiratory effort normal, speaks in full sentences, no tripod position, no accessory muscle use. Lungs clear to auscultation without rhonchi, wheezes, rales CARDIAC Regular rate and rhythm, no edema. ABDOMINAL Soft, ND/NT. No evidence of fluid wave. No pulsatile masses on exam, rebound tenderness, Platt sign or pain over Mcburney's point. MUSCLES/EXTREMITIES No abnormal range of motion, no swelling. SKIN Warm, pink and dry. No rashes, dermatoses, petechiae or lesions. NEUROLOGICAL Sedated PSYCH Normal mood and affect. Judgement/competence is appropriate Results & Data Results & Data Vital Signs (Past 12 Hours) Vital Signs Temp Pulse Pulse Resp BP Pulse Ox O2 Del Method 10/15/24 07:47 36.8 C 10/15/24 07:27 113 H 16 98 Trach Collar 10/15/24 06:06 110 H 18 99 10/15/24 06:00 151/95 H 10/15/24 05:51 105 H 15 98 10/15/24 05:48 103 H 17 98 10/15/24 05:33 101 H 12 98 10/15/24 05:21 81 16 97 10/15/24 05:00 140/74 10/15/24 05:00 140/74 10/15/24 04:54 86 19 95 10/15/24 04:48 88 21 91 10/15/24 04:45 84 22 91 10/15/24 04:42 92 H 20 92 10/15/24 04:36 85 21 92 10/15/24 04:33 86 19 92 10/15/24 04:30 96 H 22 92 10/15/24 04:24 102 H 22 92 10/15/24 04:21 94 H 26 H 92 10/15/24 04:06 107 H 17 96 10/15/24 04:00 139/88 10/15/24 04:00 139/88 10/15/24 03:51 100 H 15 91 10/15/24 03:42 103 H 19 93 10/15/24 03:39 92 H 15 94 10/15/24 03:03 99 H 11 L 94 10/15/24 03:00 37 C 10/15/24 03:00 145/93 H 10/15/24 03:00 145/93 H 10/15/24 03:00 145/93 H 10/15/24 03:00 109 H 15 95 10/15/24 02:42 109 H 16 94 10/15/24 02:24 114 H 17 96 10/15/24 02:18 116 H 12 97 10/15/24 02:09 122 H 13 97 10/15/24 02:03 119 H 12 97 10/15/24 02:00 165/104 H 10/15/24 02:00 165/104 H 10/15/24 02:00 165/104 H 10/15/24 01:54 117 H 10 L 97 10/15/24 01:51 128 H 14 97 10/15/24 01:48 119 H 16 96 10/15/24 01:45 128 H 12 98 10/15/24 01:42 119 H 10 L 98 10/15/24 01:27 115 H 11 L 97 10/15/24 01:24 109 H 14 96 10/15/24 01:12 125 H 11 L 97 10/15/24 01:09 102 H 8 L 97 10/15/24 01:03 115 H 11 L 98 10/15/24 01:00 185/121 H 10/15/24 01:00 185/121 H 10/15/24 01:00 116 H 11 L 98 10/15/24 00:57 117 H 12 97 10/15/24 00:51 108 H 12 98 10/15/24 00:42 117 H 14 97 10/15/24 00:27 107 H 12 99 10/15/24 00:18 102 H 12 99 10/15/24 00:15 110 H 18 99 10/15/24 00:11 104 H 18 97 Trach Collar 10/15/24 00:09 109 H 8 L 98 10/15/24 00:06 99 H 11 L 99 10/15/24 00:00 121 H 14 99 10/15/24 00:00 155/96 H 10/15/24 00:00 155/96 H 10/14/24 23:57 109 H 14 98 10/14/24 23:45 104 H 10 L 98 10/14/24 23:30 101 H 9 L 98 10/14/24 23:12 87 10 L 99 10/14/24 23:00 170/92 H 10/14/24 23:00 93 H 16 98 10/14/24 22:54 101 H 13 99 10/14/24 22:45 99 H 19 98 10/14/24 22:30 98 H 12 98 10/14/24 22:15 91 H 14 98 O2 Flow Rate FiO2 10/15/24 07:47 10/15/24 07:27 10 30 10/15/24 06:06 10/15/24 06:00 10/15/24 05:51 10/15/24 05:48 10/15/24 05:33 10/15/24 05:21 10/15/24 05:00 10/15/24 05:00 10/15/24 04:54 10/15/24 04:48 10/15/24 04:45 10/15/24 04:42 10/15/24 04:36 10/15/24 04:33 10/15/24 04:30 10/15/24 04:24 10/15/24 04:21 10/15/24 04:06 10/15/24 04:00 10/15/24 04:00 10/15/24 03:51 10/15/24 03:42 10/15/24 03:39 10/15/24 03:03 10/15/24 03:00 10/15/24 03:00 10/15/24 03:00 10/15/24 03:00 10/15/24 03:00 10/15/24 02:42 10/15/24 02:24 10/15/24 02:18 10/15/24 02:09 10/15/24 02:03 10/15/24 02:00 10/15/24 02:00 10/15/24 02:00 10/15/24 01:54 10/15/24 01:51 10/15/24 01:48 10/15/24 01:45 10/15/24 01:42 10/15/24 01:27 10/15/24 01:24 10/15/24 01:12 10/15/24 01:09 10/15/24 01:03 10/15/24 01:00 10/15/24 01:00 10/15/24 01:00 10/15/24 00:57 10/15/24 00:51 10/15/24 00:42 10/15/24 00:27 10/15/24 00:18 10/15/24 00:15 10/15/24 00:11 10 30 10/15/24 00:09 10/15/24 00:06 10/15/24 00:00 10/15/24 00:00 10/15/24 00:00 10/14/24 23:57 10/14/24 23:45 10/14/24 23:30 10/14/24 23:12 10/14/24 23:00 10/14/24 23:00 10/14/24 22:54 10/14/24 22:45 10/14/24 22:30 10/14/24 22:15 PG Care Time/CCT Total # of Minutes Spent Total Time Spent with Patient: Total time spent is greater than 50% in coordination of care (as documented) at patient's floor/unit and/or counseling patient: Coding Level of Care Code 06043 SUB INP/OBS CARE 2/35MIN Diagnoses Respiratory failure J96.90 COPD (chronic obstructive pulmonary disease) with emphysema J43.9 Atrial fibrillation I48.91 NAOMY (acute kidney injury) N17.9 Hypertension I10 Acute hyponatremia E87.1 Acute non-ST elevation myocardial infarction (NSTEMI) I21.4 Alcohol withdrawal delirium F10.931
--- NOTE | 2024-10-15 09:53 | Nephrology Progress Note ---
Date of Service October 15, 2024 Assessment & Plan (1) NAOMY (acute kidney injury): (2) Legionella pneumonia: (3) MRSA pneumonia: (4) ARDS (adult respiratory distress syndrome): (5) Atrial fibrillation: (6) Severe sepsis: (7) Acute hypoxemic respiratory failure: (8) Acute hyponatremia: Plan 64 year-old male with PMH of morbid obesity, hypertension, and COPD admitted to [facility] on 09/29/24 with respiratory failure, septic shock due to multifocal pneumonia due to MRSA and legionella , requiring intubation and pressor. On admission kidney function was normal ( cr 0.8 mg/dl) but rapidly developed NAOMY in the setting of sepsis, secondary to ATN. Urine microscopy demonstrating WBC, RBC, hyaline and granular casts. Imaging was negative for postrenal obstruction. He also became more than 30 L fluid overloaded. Started on hemodialysis on 10/02/24 and had daily dialysis for fluid removal until yesterday. He is ventilator dependent and had tracheostomy placed, has has been off pressor. Cr improved to 1.1 mg/dl, Na 153. Has been net negative more than 4 L overnight. BP elevated. --increase free water to 250 ml q 2 h, BMP in the afternoon, if Na corrects rapidly, suggest decreasing to 200 ml. --Continue to avoid all nephrotoxic medications. Admission and Anticipated Discharge Date Admission Date: September 29, 2024 Subjective Jamie was seen and evaluated this morning. Has been breathing on his own, seems comfortable, reports feeling better. Blood pressure elevated. Continue to have great urine output more than 5 L. Kidney function continues to improve, cr down to 1.1 mg/dl. Na 153 Review of Systems Review of Systems: Detailed review of system otherwise unremarkable. Physical Exam Constitutional: WD/WN, vitals as above + ill appearing; no acute distress Eyes: + anicteric sclerae Respiratory: Auscultation: lungs clear to auscultation bilaterally Cardiovascular: Rate/Rhythm: regular rate and regular rhythm Heart Sounds: normal S1 and normal S2 Extremities: no edema Neurologic: no focal motor deficits Psychiatric: Orientation: alert and oriented x 3 Results & Data Vital Signs (Past 12 Hours) Vital Signs Temp Pulse Pulse Resp BP Pulse Ox O2 Del Method 10/15/24 07:47 36.8 C 10/15/24 07:27 113 H 16 98 Trach Collar 10/15/24 06:06 110 H 18 99 10/15/24 06:00 151/95 H 10/15/24 05:51 105 H 15 98 10/15/24 05:48 103 H 17 98 10/15/24 05:33 101 H 12 98 10/15/24 05:21 81 16 97 10/15/24 05:00 140/74 10/15/24 05:00 140/74 10/15/24 04:54 86 19 95 10/15/24 04:48 88 21 91 10/15/24 04:45 84 22 91 10/15/24 04:42 92 H 20 92 10/15/24 04:36 85 21 92 10/15/24 04:33 86 19 92 10/15/24 04:30 96 H 22 92 10/15/24 04:24 102 H 22 92 10/15/24 04:21 94 H 26 H 92 10/15/24 04:06 107 H 17 96 10/15/24 04:00 139/88 10/15/24 04:00 139/88 10/15/24 03:51 100 H 15 91 10/15/24 03:42 103 H 19 93 10/15/24 03:39 92 H 15 94 10/15/24 03:03 99 H 11 L 94 10/15/24 03:00 37 C 10/15/24 03:00 145/93 H 10/15/24 03:00 145/93 H 10/15/24 03:00 145/93 H 10/15/24 03:00 109 H 15 95 10/15/24 02:42 109 H 16 94 10/15/24 02:24 114 H 17 96 10/15/24 02:18 116 H 12 97 10/15/24 02:09 122 H 13 97 10/15/24 02:03 119 H 12 97 10/15/24 02:00 165/104 H 10/15/24 02:00 165/104 H 10/15/24 02:00 165/104 H 10/15/24 01:54 117 H 10 L 97 10/15/24 01:51 128 H 14 97 10/15/24 01:48 119 H 16 96 10/15/24 01:45 128 H 12 98 10/15/24 01:42 119 H 10 L 98 10/15/24 01:27 115 H 11 L 97 10/15/24 01:24 109 H 14 96 10/15/24 01:12 125 H 11 L 97 10/15/24 01:09 102 H 8 L 97 10/15/24 01:03 115 H 11 L 98 10/15/24 01:00 185/121 H 10/15/24 01:00 185/121 H 10/15/24 01:00 116 H 11 L 98 10/15/24 00:57 117 H 12 97 10/15/24 00:51 108 H 12 98 10/15/24 00:42 117 H 14 97 10/15/24 00:27 107 H 12 99 10/15/24 00:18 102 H 12 99 10/15/24 00:15 110 H 18 99 10/15/24 00:11 104 H 18 97 Trach Collar 10/15/24 00:09 109 H 8 L 98 10/15/24 00:06 99 H 11 L 99 10/15/24 00:00 121 H 14 99 10/15/24 00:00 155/96 H 10/15/24 00:00 155/96 H 10/14/24 23:57 109 H 14 98 10/14/24 23:45 104 H 10 L 98 10/14/24 23:30 101 H 9 L 98 10/14/24 23:12 87 10 L 99 10/14/24 23:00 170/92 H 10/14/24 23:00 93 H 16 98 10/14/24 22:54 101 H 13 99 10/14/24 22:45 99 H 19 98 10/14/24 22:30 98 H 12 98 10/14/24 22:15 91 H 14 98 O2 Flow Rate FiO2 10/15/24 07:47 10/15/24 07:27 10 30 10/15/24 06:06 10/15/24 06:00 10/15/24 05:51 10/15/24 05:48 10/15/24 05:33 10/15/24 05:21 10/15/24 05:00 10/15/24 05:00 10/15/24 04:54 10/15/24 04:48 10/15/24 04:45 10/15/24 04:42 10/15/24 04:36 10/15/24 04:33 10/15/24 04:30 10/15/24 04:24 10/15/24 04:21 10/15/24 04:06 10/15/24 04:00 10/15/24 04:00 10/15/24 03:51 10/15/24 03:42 10/15/24 03:39 10/15/24 03:03 10/15/24 03:00 10/15/24 03:00 10/15/24 03:00 10/15/24 03:00 10/15/24 03:00 10/15/24 02:42 10/15/24 02:24 10/15/24 02:18 10/15/24 02:09 10/15/24 02:03 10/15/24 02:00 10/15/24 02:00 10/15/24 02:00 10/15/24 01:54 10/15/24 01:51 10/15/24 01:48 10/15/24 01:45 10/15/24 01:42 10/15/24 01:27 10/15/24 01:24 10/15/24 01:12 10/15/24 01:09 10/15/24 01:03 10/15/24 01:00 10/15/24 01:00 10/15/24 01:00 10/15/24 00:57 10/15/24 00:51 10/15/24 00:42 10/15/24 00:27 10/15/24 00:18 10/15/24 00:15 10/15/24 00:11 10 30 10/15/24 00:09 10/15/24 00:06 10/15/24 00:00 10/15/24 00:00 10/15/24 00:00 10/14/24 23:57 10/14/24 23:45 10/14/24 23:30 10/14/24 23:12 10/14/24 23:00 10/14/24 23:00 10/14/24 22:54 10/14/24 22:45 10/14/24 22:30 10/14/24 22:15 PG Care Time/CCT Total # of Minutes Spent Total Time Spent with Patient: Total time spent is greater than 50% in coordination of care (as documented) at patient's floor/unit and/or counseling patient: Coding Level of Care Code 64398 SUB INP/OBS CARE 235MIN Diagnoses NAOMY (acute kidney injury) N17.9 Legionella pneumonia A48.1 MRSA pneumonia J15.212 ARDS (adult respiratory distress syndrome) J80 Atrial fibrillation I48.91 Severe sepsis A41.9; R65.20 Acute hypoxemic respiratory failure J96.01 Acute hyponatremia E87.1
--- NOTE | 2024-10-15 10:59 | XRay Report ---
KUB HISTORY: s/p coresafe placement COMPARISON: 10/14/2024 FINDINGS: Distal tip of feeding tube projects over the mid upper abdomen, likely within the gastric b arianna. Nonobstructive bowel gas pattern. No renal calculi. No ureteral calculi. No pneumoperitoneum or pneumatosis. Cardiomegaly. Right mid lung and right basilar opacities again noted along with right p leural effusion. No fracture. IMPRESSION: Distal tip of feeding tube is likely positioned within the gastric body. ACT 112: Negative or not required by law. The above report was generated using voice recognition software. It may contain grammatical, syntax o r spelling errors. Electronically signed by: Alex Arteaga M.D. 10/15/2024 10:58 AM
[2024-10-15] MEDS: MAGNESIUM SULFATE / D5W 1 GM/100 ML BAG IV SCH (11:29)
[2024-10-15] MEDS: POTASSIUM PHOSPHATE 9 MMOL in DEXTROSE 5% 250 ML IV ONE (11:30)
[2024-10-15] MEDS ORDERED: HALOPERIDOL LACTATE 5 MG/ML 1 ML VIAL IV PRN (13:31)
[2024-10-15] MEDS: METOPROLOL TARTRATE 1 MG/ML VIAL IV PRN (15:07)
[2024-10-15 16:01] LABS: Anion Gap 6.0 (3-11); Blood Urea Nitrogen 51.0 mg/dl (6-23); Calcium 8.8 mg/dl (8.6-10.3); Carbon Dioxide 34.0 mmol/L (21-32); Chloride 112.0 mmol/L (98-107); Creatinine Clr Calc Pharmacy 102.1 ml/min; Glucose 178.0 mg/dl (70-99(Fasting)); Potassium 4.3 mmol/L (3.5-5.1); Sodium 152.0 mmol/L (136-145)
--- NOTE | 2024-10-15 17:03 | XRay Report ---
3 views of the abdomen were obtained Findings: There is a feeding tube with its tip within the stomach Only the upper abdomen is seen. The visualized bowel gas pattern appears unremarkable. No renal or ureteral calculi are seen. No foreign body is evident. There is thoracic and lumbar degenerative disc disease There is right lower lobe infiltrate, concerning for pneumonia Impression: 1. Nasogastric tube with its tip within the stomach 2. Suspected right lower lobe pneumonia Electronically signed by Hiram San 10-15-2024 5:03 PM
[2024-10-15] MEDS: DEXTROSE 5% 1,000 ML IV SCH (17:19)
[2024-10-15] MEDS: LOPERAMIDE LIQUID 120 ML BOTTLE PO PRN (17:19)
[2024-10-16 05:08] LABS: Hematocrit (blood only) 33.0 % (42.0-52.0); Hemoglobin 10.5 g/dl (14.0-18.0); Immature Granulocytes # (auto) 0.01 K/uL (0.01-0.20); Immature Granulocytes % (auto) 0.1 %; Mean Corpuscular Hemoglobin 31.6 pg (25.0-34.0); Mean Corpuscular Volume 99.4 fL (80.0-100.0); Platelet Count 123 K/uL (130-400); RDW Standard Deviation 50.6 fL (36.4-46.3); Red Blood Count 3.32 M/uL (4.70-6.10); White Blood Count 8.16 K/ul (4.8-10.8)
[2024-10-16 05:24] LABS: Anion Gap 4.0 (3-11); Blood Urea Nitrogen 43.0 mg/dl (6-23); Calcium 8.2 mg/dl (8.6-10.3); Carbon Dioxide 33.0 mmol/L (21-32); Chloride 108.0 mmol/L (98-107); Creatinine Clr Calc Pharmacy 113.2 ml/min; Glucose 165.0 mg/dl (70-99(Fasting)); Potassium 3.9 mmol/L (3.5-5.1); Sodium 145.0 mmol/L (136-145)
--- NOTE | 2024-10-16 07:36 | Critical Care Progress Note ---
Date of Service October 16, 2024 Assessment & Plan (1) Pneumonia: (2) Pleural effusion: (3) Acute hypoxemic respiratory failure: (4) Thrombocytopenia: (5) History of tobacco abuse: (6) Respiratory failure: (7) COPD (chronic obstructive pulmonary disease) with emphysema: (8) Severe sepsis: (9) Acute non-ST elevation myocardial infarction (NSTEMI): (10) Alcohol withdrawal delirium: Plan Impression: 64-year-old male with severe obstructive lung disease at baseline admitted with multifocal pneumonia and hypoxemic respiratory failure with concomitant lactic acidosis. Lactate is improved with IV fluids. He is currently on antibiotics. He was placed on noninvasive positive pressure ventilation admitted to the ICU. Recommendations: Neurologic: -- Encephalopathy Seems to be in passive delirium with periodic bouts of restlessness QTc 391 on 10/06/2024, haloperidol to be given as needed I will give him zolpidem nightly says has not been sleeping well MRI brain 09/30/2024: Chronic right cerebellar infarct, no evidence of intracranial mass, no acute changes Repeat CT head 10/06/2024: No acute findings -- S/p acute alcohol withdrawal History of heavy alcohol use Continue with thiamine and folic acid Cardiovascular: 2D echo 09/30/2024: Moderate LV dysfunction, EF 40%, RV not well-visualized --A-fib RVR with new onset CHF Amiodarone drip started on 09/30/2024 transition to p.o. 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 -- S/p septic shock Sources is multifocal pneumonia --> BAL growing Staph aureus Urine Legionella positive Completed the course of antibiotics Vasopressor support to keep MAP greater than 65 -- Elevated troponins --> resolved Likely type II NE --Hypertension On losartan at home Respiratory: CTA chest 09/29/2024 personally reviewed: Centrilobular and paraseptal emphysema appreciated bilaterally Dense consolidative process appreciated in the right upper lobe as well as right middle lobe Minimal right-sided pleural effusion No significant mediastinal lymphadenopathy -- TDRF Intubated 09/30/2024 --> s/p trach 10/10/[address] Gillette Likely secondary to multifocal pneumonia Bronc culture from 09/30/2024 growing MRSA S/p repeat bronc 10/02/2024, thin clear secretions obstructing the right lower lobe which were suctioned out Nasal MRSA positive --Small right-sided pleural effusion Appreciated on POCUS 10/01/2024 -- COPD with emphysema On Trelegy 100 at home Continue with nebulized budesonide and Perforomist GI: -- Occult blood positive with loose stools H&H seems to be stable Continue to monitor -- Mild transaminitis Continue to trend Renal: --Hypernatremia with hyperchloremia --> improving -- NAOMY --> improving Dialysis started 10/02/2024 --> dialysis catheter discontinued Diuresing with Lasix Nephrology has been consulted Endocrine: ICU hypoglycemia protocol ID: --Severe multifocal community-acquired pneumonia Finished the course of antibiotics, azithromycin as well as linezolid and on 10/12/2024 Procalcitonin 29.2 MRSA positive Rocephin changed to Zosyn on 09/30/2024 Vancomycin changed to ceftaroline on 10/01/2024 Bronch culture growing Staph aureus Urine Legionella antigen came positive on 10/03/2024 Repeat blood culture 10/06/2024, negative to date Heme-onc: -- Thrombocytopenia Likely secondary to sepsis versus antibiotics Continue to trend HIT antibody positive Serotonin release assay has been ordered by previous sql application developer, we will follow it up --Prophylaxis VTE: Rivaroxaban GI: Pantoprazole Lines: Peripheral Diet: Tube feeds Plan: In/out: Negative 257 mL, urine output 3825 AB.46/40/85 Given the passive delirium, ABG does not show hypercapnea Zolpidem to be given tonight to help him sleep Give D5 water 125 mL an hour for 1 L. Decrease free water flushes to 150 mL every 2 hours. Repeat BMP later today Magnesium phosphorus and potassium being replaced Continue with diltiazem to 60 mg Q6, continue with metoprolol 50 Q8 Continue with trach collar Placement when family ready to LTAC I spent more than 50 minutes looking in the chart, images, discussing the plan of care with the patient, RN as well as primary team Please note the above document was generated using voice recognition software. It may contain grammatical, syntax or spelling errors.Any formal questions or concerns about the content, text or information contained within the body of this dictation should be directly addressed to the provider for clarification. Admission and Anticipated Discharge Date Admission Date: September 29, 2024 Subjective Patient seen and examined at bedside. No acute distress, no adverse events overnight He is not one-to-one as he removed his NGT multiple times yesterday. Oriented to only self Seems to be in passive delirium. Heart rate is better controlled today Has been afebrile Had 3 bowel movements yesterday Review of Systems 2 Review of Systems: All systems reviewed & are unremarkable except as noted in Subjective Physical Exam 2 Physical Exam: Constitutional: No acute distress HEENT: PERRLA, positive trach Respiratory system: Decreased air entry bilaterally, no wheeze, no rhonchi, positive crackles right lower lobe CVS: S1-S2 positive, no murmurs or gallops, irregular Abdomen: Soft, nontender, nondistended, positive bowel sounds x4, obese Extremities: +2 pulses bilaterally radialis/ dorsalis pedis, no cyanosis, p ositive pitting edema right upper extremity Neuro: Awake alert oriented to self Psych: Flat mood and affect G/U: Positive [place] Skin: no rashes, warm and dry Lymphatic: no cervical or axillary lymphadenopathy Results & Data Results & Data Vital Signs (Past 12 Hours) Vital Signs Temp Pulse Pulse Resp BP Pulse Ox O2 Del Method 10/16/24 07:14 89 18 99 Trach Collar 10/16/24 05:18 71 23 96 10/16/24 05:15 74 23 95 10/16/24 05:12 77 25 H 95 10/16/24 05:09 84 20 97 10/16/24 05:03 88 19 97 10/16/24 05:00 /10/16/24 05:00 115/81 10/16/24 05:00 115/81 10/16/24 05:00 115/81 10/16/24 04:57 71 22 97 10/16/24 04:33 106 H 22 97 10/16/24 04:30 101 H 33 H 98 10/16/24 04:21 101 H 25 H 98 10/16/24 04:18 97 H 29 H 98 10/16/24 04:07 37 C 10/16/24 04:00 98 H 20 97 10/16/24 04:00 127/79 10/16/24 04:00 127/79 10/16/24 04:00 127/79 10/16/24 03:57 115 H 14 97 10/16/24 03:54 102 H 19 97 10/16/24 03:51 99 H 13 97 10/16/24 03:48 104 H 17 97 10/16/24 02:57 106 H 15 98 10/16/24 02:54 107 H 14 98 10/16/24 02:51 106 H 8 L 98 10/16/24 02:48 99 H 9 L 98 10/16/24 02:42 112 H 10 L 98 10/16/24 02:39 92 H 13 99 10/16/24 02:36 116 H 13 98 10/16/24 02:12 106 H 14 98 10/16/24 02:00 131/75 10/16/24 01:45 100 H 17 99 10/16/24 01:42 100 H 18 98 10/16/24 01:12 91 H 22 99 10/16/24 01:00 120/74 10/16/24 01:00 120/74 10/16/24 01:00 120/74 10/16/24 01:00 86 18 98 10/16/24 00:57 86 16 100 10/16/24 00:51 82 7 L 99 10/16/24 00:45 91 H 8 L 98 10/16/24 00:30 89 12 98 10/16/24 00:21 86 8 L 98 10/16/24 00:18 87 5 L 98 10/16/24 00:15 92 H 7 L 99 10/16/24 00:03 83 13 98 10/16/24 00:00 113/10/16/24 00:00 113/75 10/15/24 23:57 82 8 L 98 10/15/24 23:51 84 9 L 96 10/15/24 22:53 37.3 C 10/15/24 22:40 90 18 98 Trach Collar 10/15/24 20:42 109 H 9 L 98 10/15/24 20:39 96 H 8 L 97 10/15/24 20:24 96 H 16 98 10/15/24 20:16 36.8 C 10/15/24 20:07 90 18 97 Trach Collar 10/15/24 20:00 123/84 10/15/24 20:00 Trach Collar 10/15/24 19:48 91 H 12 98 10/15/24 19:39 92 H 27 H 97 O2 Flow Rate FiO2 10/16/24 07:14 10 10/16/24 05:18 10/16/24 05:15 10/16/24 05:12 10/16/24 05:09 10/16/24 05:03 10/16/24 05:00 10/16/24 05:00 10/16/24 05:00 10/16/24 05:00 10/16/24 04:57 10/16/24 04:33 10/16/24 04:30 10/16/24 04:21 10/16/24 04:18 10/16/24 04:07 10/16/24 04:00 10/16/24 04:00 10/16/24 04:00 10/16/24 04:00 10/16/24 03:57 10/16/24 03:54 10/16/24 03:51 10/16/24 03:48 10/16/24 02:57 10/16/24 02:54 10/16/24 02:51 10/16/24 02:48 10/16/24 02:42 10/16/24 02:39 10/16/24 02:36 10/16/24 02:12 10/16/24 02:00 10/16/24 01:45 10/16/24 01:42 10/16/24 01:12 10/16/24 01:00 10/16/24 01:00 10/16/24 01:00 10/16/24 01:00 10/16/24 00:57 10/16/24 00:51 10/16/24 00:45 10/16/24 00:30 10/16/24 00:21 10/16/24 00:18 10/16/24 00:15 10/16/24 00:03 10/16/24 00:00 10/16/24 00:00 10/15/24 23:57 10/15/24 23:51 10/15/24 22:53 10/15/24 22:40 10 10/15/24 20:42 10/15/24 20:39 10/15/24 20:24 10/15/24 20:16 10/15/24 20:07 10 28 10/15/24 20:00 10/15/24 20:00 10/15/24 19:48 10/15/24 19:39 Laboratory Results 10/16/24 04:26 10/16/24 04:26 Coding Level of Care Code 07797 SUB INP/OBS CARE 3/50MIN Diagnoses Pneumonia J18.9 Pleural effusion J90 Acute hypoxemic respiratory failure J96.01 Thrombocytopenia D69.6 History of tobacco abuse Z87.891 Respiratory failure J96.90 COPD (chronic obstructive pulmonary disease) with emphysema J43.9 Severe sepsis A41.9; R65.20 Acute non-ST elevation myocardial infarction (NSTEMI) I21.4 Alcohol withdrawal delirium F10.931
--- NOTE | 2024-10-16 07:49 | XRay Report ---
EXAM: XR chest 1V portable CLINICAL HISTORY: tracheostomy TECHNIQUE: X-ray image of the chest obtained in AP projection. COMPARISON: Prior X-ray dated 10/15/2024 for comparison. FINDINGS: Tracheostomy tube with tip 3.8 cm above kimberley. Pulmonary Parenchyma: Unchanged hazy opacities in right lower zone and right fissural thickening/ encysted pleural effusion. Heart and Mediastinum: Heart size and shape are normal. No mediastinal widening or masses. No hilar or mediastinal lymphadenopathy. Bony Thorax: Bony thorax appears intact without fractures or deformities. Soft Tissues: Soft tissues overlying the chest wall are unremarkable. IMPRESSION: 1. Tracheostomy tube with tip 3.8 cm above kimberley. 2. Unchanged hazy opacities in right lower zone and right fissural thickening/ encysted pleural effusion. 3. New finding of obscuration of bilateral CP angles. Electronically signed by Carl Meraz 10-16-2024 07:47 AM
[2024-10-16] MEDS: TUBE FEEDING WATER FLUSH GT SCH ×2 (08:38→11:15)
[2024-10-16 09:03] LABS: Magnesium 1.3 mg/dl (1.7-2.4)
[2024-10-16] MEDS: DEXTROSE 5% 1,000 ML IV SCH (09:04)
[2024-10-16] MEDS ORDERED: POTASSIUM PHOS 3 MMOL/1 ML INFUSION IV STA (09:06)
[2024-10-16 09:24] LABS: iSTAT Art Bld Gas Base Excess 5.0 meg/L (-9-1.8)
[2024-10-16] MEDS: POTASSIUM PHOSPHATE 21 MMOL in SODIUM CHLORIDE 0.9% 500 ML IV ONE (09:27)
[2024-10-16] MEDS: MAGNESIUM SULFATE / D5W 1 GM/100 ML BAG IV SCH ×2 (09:28→16:53)
--- NOTE | 2024-10-16 09:34 | Hospitalist Progress Note ---
Date of Service October 16, 2024 Assessment & Plan (1) Respiratory failure: Plan: Due to MRSA and Legionella pneumonia-Resolved Bronchial lavage growing MRSA Urine Legionella positive completed linezolid and zithromax Consulted infectious disease. bronchoscopy showing significant mucus plugging, cleared out - repeat bronchoscopy still with mucus plugging -tracheostomy -pt breathing off vent -trach collar tolerated overnight -swallow evaluation today (2) COPD (chronic obstructive pulmonary disease) with emphysema: Plan: Budesonide twice daily xopenex (3) Atrial fibrillation: Plan: -amiodarone d/c'd - heparin drip d/c'd -xarelto started -placed on Cardizem 60mg Q6hrs and metoprolol (4) NAOMY (acute kidney injury): Plan: ATN due to septic shock Creatinine still rising Still oliguric/anuric Nephrology involved - HD as per nephrology renal function now at baseline (5) Hypertension: Plan: -losartan on hold 2nd to hypotension (6) Acute hyponatremia: Plan: -con't free water flushes -Na+ 144 (7) Acute non-ST elevation myocardial infarction (NSTEMI): Plan: Most likely demand ischemia due to hypoxia and tachycardia. (8) Alcohol withdrawal delirium: Plan: Currently on propofol and fentanyl Thiamine and folic acid Plan This is a 64-year-old morbidly obese male with a history of COPD, hypertension who presents with severe respiratory distress, now on BiPAP. Chest x-ray showed pneumonia. He was given DuoNebs, steroids, ceftriaxone in the emergency room. Labs significant for lactic acidosis of 5, anion gap metabolic acidosis, hyponatremia, hypokalemia, elevated troponin, elevated procalcitonin. His blood pressure dropped while in the ER. He is being admitted to the ICU with acute hypoxic respiratory failure, pneumonia with severe sepsis LTAC placement once ready for d/c Admission and Anticipated Discharge Date Admission Date: September 29, 2024 Subjective Pt had episode of agitation overnight. Is on soft restraints and close observation. Review of Systems Review of Systems: CONST: Negative for fever, body aches and chills. HENT: Tracheostomy EYES: Negative for discharge/pain or vision changes. RESP: Negative for cough/hemoptysis and shortness of breath. CV: Negative chest pain, difficulty breathing, palpitations. ABD: Negative pain, nausea, vomiting. : Negative increase frequency, dysuria, blood in urine or stool. MUSC: Negative for muscle aches, edema. SKIN: Negative rash, lesions/sores. NEURO: Negative headache, dizziness, weakness. Physical Exam Physical Exam: GENERAL APPEARANCE NAD EYES lids/conjunctiva normal. EARS/NOSE/THROAT Mucous membranes moist, nares normal, lips/teeth normal uvula midline without oral pharyngeal erythema, exudate or swelling TMs normal bilaterally. No lymphangitis/lymphedema. HEAD/NECK Tracheostomy RESPIRATORY respiratory effort normal, speaks in full sentences, no tripod position, no accessory muscle use. Lungs clear to auscultation without rhonchi, wheezes, rales CARDIAC Regular rate and rhythm, no edema. ABDOMINAL Soft, ND/NT. No evidence of fluid wave. No pulsatile masses on exam, rebound tenderness, Platt sign or pain over Mcburney's point. MUSCLES/EXTREMITIES No abnormal range of motion, no swelling. SKIN Warm, pink and dry. No rashes, dermatoses, petechiae or lesions. NEUROLOGICAL Sedated PSYCH Normal mood and affect. Judgement/competence is appropriate Results & Data Results & Data Vital Signs (Past 12 Hours) Vital Signs Temp Pulse Pulse Resp BP Pulse Ox O2 Del Method 10/16/24 07:57 93 H 9 L 129/79 100 10/16/24 07:52 86 10/16/24 07:14 89 18 99 Trach Collar 10/16/24 05:18 71 23 96 10/16/24 05:15 74 23 95 10/16/24 05:12 77 25 H 95 10/16/24 05:09 84 20 97 10/16/24 05:03 88 19 97 10/16/24 05:00 115/81 10/16/24 05:00 115/81 10/16/24 05:00 115/81 10/16/24 05:00 115/81 10/16/24 04:57 71 22 97 10/16/24 04:33 106 H 22 97 10/16/24 04:30 101 H 33 H 98 10/16/24 04:21 101 H 25 H 98 10/16/24 04:18 97 H 29 H 98 10/16/24 04:07 37 C 10/16/24 04:00 98 H 20 97 10/16/24 04:00 127/79 10/16/24 04:00 127/79 10/16/24 04:00 127/79 10/16/24 03:57 115 H 14 97 10/16/24 03:54 102 H 19 97 10/16/24 03:51 99 H 13 97 10/16/24 03:48 104 H 17 97 10/16/24 02:57 106 H 15 98 10/16/24 02:54 107 H 14 98 10/16/24 02:51 106 H 8 L 98 10/16/24 02:48 99 H 9 L 98 10/16/24 02:42 112 H 10 L 98 10/16/24 02:39 92 H 13 99 10/16/24 02:36 116 H 13 98 10/16/24 02:12 106 H 14 98 10/16/24 02:00 131/75 10/16/24 01:45 100 H 17 99 10/16/24 01:42 100 H 18 98 10/16/24 01:12 91 H 22 99 10/16/24 01:00 120/10/16/24 01:00 120/74 10/16/24 01:00 120/74 10/16/24 01:00 86 18 98 10/16/24 00:57 86 16 100 10/16/24 00:51 82 7 L 99 10/16/24 00:45 91 H 8 L 98 10/16/24 00:30 89 12 98 10/16/24 00:21 86 8 L 98 10/16/24 00:18 87 5 L 98 10/16/24 00:15 92 H 7 L 99 10/16/24 00:03 83 13 98 10/16/24 00:00 113/10/16/24 00:00 113/75 10/15/24 23:57 82 8 L 98 10/15/24 23:51 84 9 L 96 10/15/24 22:53 37.3 C 10/15/24 22:40 90 18 98 Trach Collar O2 Flow Rate FiO2 10/16/24 07:57 10/16/24 07:52 10/16/24 07:14 10 28 10/16/24 05:18 10/16/24 05:15 10/16/24 05:12 10/16/24 05:09 10/16/24 05:03 10/16/24 05:00 10/16/24 05:00 10/16/24 05:00 10/16/24 05:00 10/16/24 04:57 10/16/24 04:33 10/16/24 04:30 10/16/24 04:21 10/16/24 04:18 10/16/24 04:07 10/16/24 04:00 10/16/24 04:00 10/16/24 04:00 10/16/24 04:00 10/16/24 03:57 10/16/24 03:54 10/16/24 03:51 10/16/24 03:48 10/16/24 02:57 10/16/24 02:54 10/16/24 02:51 10/16/24 02:48 10/16/24 02:42 10/16/24 02:39 10/16/24 02:36 10/16/24 02:12 10/16/24 02:00 10/16/24 01:45 10/16/24 01:42 10/16/24 01:12 10/16/24 01:00 10/16/24 01:00 10/16/24 01:00 10/16/24 01:00 10/16/24 00:57 10/16/24 00:51 10/16/24 00:45 10/16/24 00:30 10/16/24 00:21 10/16/24 00:18 10/16/24 00:15 10/16/24 00:03 10/16/24 00:00 10/16/24 00:00 10/15/24 23:57 10/15/24 23:51 10/15/24 22:53 10/15/24 22:40 10 28 PG Care Time/CCT Total # of Minutes Spent Total Time Spent with Patient: Total time spent is greater than 50% in coordination of care (as documented) at patient's floor/unit and/or counseling patient: Coding Level of Care Code 91265 SUB INP/OBS CARE 2/35MIN Diagnoses Respiratory failure J96.90 COPD (chronic obstructive pulmonary disease) with emphysema J43.9 Atrial fibrillation I48.91 NAOMY (acute kidney injury) N17.9 Hypertension I10 Acute hyponatremia E87.1 Acute non-ST elevation myocardial infarction (NSTEMI) I21.4 Alcohol withdrawal delirium F10.931
--- NOTE | 2024-10-16 09:56 | Nephrology Progress Note ---
Date of Service October 16, 2024 Assessment & Plan (1) NAOMY (acute kidney injury): (2) Legionella pneumonia: (3) MRSA pneumonia: (4) ARDS (adult respiratory distress syndrome): (5) Atrial fibrillation: (6) Severe sepsis: (7) Acute hypoxemic respiratory failure: (8) Acute hyponatremia: Plan 64 year-old male with PMH of morbid obesity, hypertension, and COPD admitted to [facility] on 09/29/24 with respiratory failure, septic shock due to multifocal pneumonia due to MRSA and legionella , requiring intubation and pressor. On admission kidney function was normal ( cr 0.8 mg/dl) but rapidly developed NAOMY in the setting of sepsis, secondary to ATN. Urine microscopy demonstrating WBC, RBC, hyaline and granular casts. Imaging was negative for postrenal obstruction. He also became more than 30 L fluid overloaded. Started on hemodialysis on 10/02/24 and had daily dialysis for fluid removal until yesterday. He is ventilator dependent and had tracheostomy placed, has has been off pressor. Cr improved to 0.9 mg/dl, Na 145. --decrease free water to 200 ml q 2 h Will sign off. Admission and Anticipated Discharge Date Admission Date: September 29, 2024 Subjective Jamie was seen and evaluated this morning. He seems comfortable, denied any concerns. Blood pressure improved. Urine output slightly decreased to around 3 L. Kidney function continues to improve, cr down to 0.9 mg/dl. Na improved to 145 Review of Systems Review of Systems: All systems reviewed & are unremarkable except as noted in Subjective Physical Exam Constitutional: WD/WN, vitals as above + ill appearing; no acute distress Eyes: + anicteric sclerae Respiratory: Auscultation: lungs clear to auscultation bilaterally Cardiovascular: Rate/Rhythm: regular rate and regular rhythm Heart Sounds: normal S1 and normal S2 Extremities: no edema Neurologic: no focal motor deficits Psychiatric: Orientation: alert and oriented x 3 Results & Data Vital Signs (Past 12 Hours) Vital Signs Temp Pulse Pulse Resp BP Pulse Ox O2 Del Method 10/16/24 07:57 93 H 9 L 129/79 100 10/16/24 07:52 86 10/16/24 07:14 89 18 99 Trach Collar 10/16/24 05:18 71 23 96 10/16/24 05:15 74 23 95 10/16/24 05:12 77 25 H 95 08/06/25 05:09 84 20 97 10/16/24 05:03 88 19 97 10/16/24 05:00 115/81 10/16/24 05:00 115/81 10/16/24 05:00 115/81 10/16/24 05:00 115/81 10/16/24 04:57 71 22 97 10/16/24 04:33 106 H 22 97 10/16/24 04:30 101 H 33 H 98 10/16/24 04:21 101 H 25 H 98 10/16/24 04:18 97 H 29 H 98 10/16/24 04:07 37 C 10/16/24 04:00 98 H 20 97 10/16/24 04:00 127/79 10/16/24 04:00 127/79 10/16/24 04:00 127/79 10/16/24 03:57 115 H 14 97 10/16/24 03:54 102 H 19 97 10/16/24 03:51 99 H 13 97 10/16/24 03:48 104 H 17 97 10/16/24 02:57 106 H 15 98 10/16/24 02:54 107 H 14 98 10/16/24 02:51 106 H 8 L 98 10/16/24 02:48 99 H 9 L 98 10/16/24 02:42 112 H 10 L 98 10/16/24 02:39 92 H 13 99 10/16/24 02:36 116 H 13 98 10/16/24 02:12 106 H 14 98 10/16/24 02:00 131/75 10/16/24 01:45 100 H 17 99 10/16/24 01:42 100 H 18 98 10/16/24 01:12 91 H 22 99 10/16/24 01:00 120/74 10/16/24 01:00 120/74 10/16/24 01:00 120/74 10/16/24 01:00 86 18 98 10/16/24 00:57 86 16 100 10/16/24 00:51 82 7 L 99 10/16/24 00:45 91 H 8 L 98 10/16/24 00:30 89 12 98 10/16/24 00:21 86 8 L 98 10/16/24 00:18 87 5 L 98 10/16/24 00:15 92 H 7 L 99 10/16/24 00:03 83 13 98 10/16/24 00:00 113/75 10/16/24 00:00 113/75 10/15/24 23:57 82 8 L 98 10/15/24 23:51 84 9 L 96 10/15/24 22:53 37.3 C 10/15/24 22:40 90 18 98 Trach Collar O2 Flow Rate FiO2 10/16/24 07:57 10/16/24 07:52 10/16/24 07:14 10 28 10/16/24 05:18 10/16/24 05:15 10/16/24 05:12 10/16/24 05:09 10/16/24 05:03 10/16/24 05:00 10/16/24 05:00 10/16/24 05:00 10/16/24 05:00 10/16/24 04:57 10/16/24 04:33 10/16/24 04:30 10/16/24 04:21 10/16/24 04:18 10/16/24 04:07 10/16/24 04:00 10/16/24 04:00 10/16/24 04:00 10/16/24 04:00 10/16/24 03:57 10/16/24 03:54 10/16/24 03:51 10/16/24 03:48 10/16/24 02:57 10/16/24 02:54 10/16/24 02:51 10/16/24 02:48 10/16/24 02:42 10/16/24 02:39 10/16/24 02:36 10/16/24 02:12 10/16/24 02:00 10/16/24 01:45 10/16/24 01:42 10/16/24 01:12 10/16/24 01:00 10/16/24 01:00 10/16/24 01:00 10/16/24 01:00 10/16/24 00:57 10/16/24 00:51 10/16/24 00:45 10/16/24 00:30 10/16/24 00:21 10/16/24 00:18 10/16/24 00:15 10/16/24 00:03 10/16/24 00:00 10/16/24 00:00 10/15/24 23:57 10/15/24 23:51 10/15/24 22:53 10/15/24 22:40 10 28 PG Care Time/CCT Total # of Minutes Spent Total Time Spent with Patient: Total time spent is greater than 50% in coordination of care (as documented) at patient's floor/unit and/or counseling patient: Coding Level of Care Code 38451 SUB INP/OBS CARE 04/06MIN Diagnoses NAOMY (acute kidney injury) N17.9 Legionella pneumonia A48.1 MRSA pneumonia J15.212 ARDS (adult respiratory distress syndrome) J80 Atrial fibrillation I48.91 Severe sepsis A41.9; R65.20 Acute hypoxemic respiratory failure J96.01 Acute hyponatremia E87.1
[2024-10-16 16:00] LABS: Magnesium 1.8 mg/dl (1.7-2.4)
[2024-10-16 16:05] LABS: Anion Gap 7.0 (3-11); Calcium 8.4 mg/dl (8.6-10.3); Carbon Dioxide 26.0 mmol/L (21-32); Chloride 108.0 mmol/L (98-107); Potassium 4.4 mmol/L (3.5-5.1); Sodium 141.0 mmol/L (136-145)
[2024-10-16 16:11] LABS: Blood Urea Nitrogen 39.0 mg/dl (6-23); Creatinine Clr Calc Pharmacy 117.3 ml/min; Glucose 134.0 mg/dl (70-99(Fasting))
[2024-10-16] MEDS: ZOLPIDEM TARTRATE 5 MG TAB PO SCH (20:55)
[2024-10-17 04:47] LABS: Hematocrit (blood only) 31.7 % (42.0-52.0); Hemoglobin 10.1 g/dl (14.0-18.0); Immature Granulocytes # (auto) 0.02 K/uL (0.01-0.20); Immature Granulocytes % (auto) 0.3 %; Mean Corpuscular Hemoglobin 31.0 pg (25.0-34.0); Mean Corpuscular Volume 97.2 fL (80.0-100.0); Platelet Count 124 K/uL (130-400); RDW Standard Deviation 48.9 fL (36.4-46.3); Red Blood Count 3.26 M/uL (4.70-6.10); White Blood Count 7.93 K/ul (4.8-10.8)
[2024-10-17 05:01] LABS: Anion Gap 6.0 (3-11); Blood Urea Nitrogen 37.0 mg/dl (6-23); Calcium 8.2 mg/dl (8.6-10.3); Carbon Dioxide 28.0 mmol/L (21-32); Chloride 106.0 mmol/L (98-107); Creatinine Clr Calc Pharmacy 121.8 ml/min; Glucose 115.0 mg/dl (70-99(Fasting)); Magnesium 1.8 mg/dl (1.7-2.4); Potassium 4.0 mmol/L (3.5-5.1); Sodium 140.0 mmol/L (136-145)
--- NOTE | 2024-10-17 07:23 | Critical Care Progress Note ---
Date of Service October 17, 2024 Assessment & Plan (1) Pneumonia: (2) Pleural effusion: (3) Acute hypoxemic respiratory failure: (4) Thrombocytopenia: (5) History of tobacco abuse: (6) Respiratory failure: (7) COPD (chronic obstructive pulmonary disease) with emphysema: (8) Severe sepsis: (9) Acute non-ST elevation myocardial infarction (NSTEMI): (10) Alcohol withdrawal delirium: (11) MRSA pneumonia: Plan Impression: 64-year-old male with severe obstructive lung disease at baseline admitted with multifocal pneumonia and hypoxemic respiratory failure with concomitant lactic acidosis. Lactate is improved with IV fluids. He is currently on antibiotics. He was placed on noninvasive positive pressure ventilation admitted to the ICU. Recommendations: Neurologic: -- Encephalopathy Seems to be in passive delirium with periodic bouts of restlessness QTc 391 on 10/06/2024, haloperidol to be given as needed I will give him zolpidem nightly says has not been sleeping well MRI brain 09/30/2024: Chronic right cerebellar infarct, no evidence of intracranial mass, no acute changes Repeat CT head 10/06/2024: No acute findings -- S/p acute alcohol withdrawal History of heavy alcohol use Continue with thiamine and folic acid Cardiovascular: 2D echo 09/30/2024: Moderate LV dysfunction, EF 40%, RV not well-visualized --A-fib RVR with new onset CHF Amiodarone drip started on 09/30/2024 transition to p.o. but patient went into A- fib RVR again on 10/04/2024, another bolus of amiodarone was given and drip was restarted --> amiodarone drip discontinued 09/29/2024 for elevation of LFTs Got digoxin loading pivot end polisher 10/06/2024 -- S/p septic shock Sources is multifocal pneumonia --> BAL growing Staph aureus Urine Legionella positive Completed the course of antibiotics Vasopressor support to keep MAP greater than 65 -- Elevated troponins --> resolved Likely type II IA --Hypertension On losartan at home Respiratory: CTA chest 09/29/2024 personally reviewed: Centrilobular and paraseptal emphysema appreciated bilaterally Dense consolidative process appreciated in the right upper lobe as well as right middle lobe Minimal right-sided pleural effusion No significant mediastinal lymphadenopathy -- TDRF Intubated 09/30/2024 --> s/p trach 10/10/[address] Gillette Likely secondary to multifocal pneumonia Bronc culture from 09/30/2024 growing MRSA S/p repeat bronc 10/02/2024, thin clear secretions obstructing the right lower lobe which were suctioned out Nasal MRSA positive --Small right-sided pleural effusion Appreciated on POCUS 10/01/2024 -- COPD with emphysema On Trelegy 100 at home Continue with nebulized budesonide and Perforomist GI: -- Occult blood positive with loose stools H&H seems to be stable Continue to monitor -- Mild transaminitis Continue to trend Renal: --Hypernatremia with hyperchloremia --> improving -- NAOMY --> improving Dialysis started 10/02/2024 --> dialysis catheter discontinued Diuresing with Lasix Nephrology has been consulted Endocrine: ICU hypoglycemia protocol ID: --Severe multifocal community-acquired pneumonia Finished the course of antibiotics, azithromycin as well as linezolid and on 10/12/2024 Procalcitonin 29.2 MRSA positive Rocephin changed to Zosyn on 09/30/2024 Vancomycin changed to ceftaroline on 10/01/2024 Bronch culture growing Staph aureus Urine Legionella antigen came positive on 10/03/2024 Repeat blood culture 10/06/2024, negative to date Heme-onc: -- Thrombocytopenia Likely secondary to sepsis versus antibiotics Continue to trend HIT antibody positive Serotonin release assay has been ordered by previous billet inspector, we will follow it up --Prophylaxis VTE: Rivaroxaban GI: Pantoprazole Lines: Peripheral Diet: Tube feeds Plan: In/out: -787, urine output 3683 Magnesium being replaced Continue with free water flushes 150 mL every 2 hours. Continue with diltiazem to 60 mg Q6, continue with metoprolol 50 Q8 Would recommend to continue with hypertonic saline nebulized along with Perforomist and budesonide given the thick secretions that the patient has. Continue with tube feeds at LTAC. Recommend to discontinue [place] Torre catheter at LTAC. Continue with trach collar Placement to LTAC when bed available Please note the above document was generated using voice recognition software. It may contain grammatical, syntax or spelling errors.Any formal questions or concerns about the content, text or information contained within the body of this dictation should be directly addressed to the provider for clarification. Admission and Anticipated Discharge Date Admission Date: September 29, 2024 Subjective Patient seen and examined at bedside. No acute distress, no adverse events overnight Heart rate was in the 90s He was more alert today, answering questions appropriately Denies any headache Did complain of some abdominal as well as chest discomfort. Bowel movements have decreased in frequency after Imodium being started. Review of Systems 2 Review of Systems: All systems reviewed & are unremarkable except as noted in Subjective Physical Exam 2 Physical Exam: Constitutional: No acute distress HEENT: PERRLA, positive trach Respiratory system: Decreased air entry bilaterally, no wheeze, no rhonchi, positive crackles right lower lobe CVS: S1-S2 positive, no murmurs or gallops, irregular Abdomen: Soft, nontender, nondistended, positive bowel sounds x4, obese Extremities: +2 pulses bilaterally radialis/ dorsalis pedis, no cyanosis, p ositive pitting edema right upper extremity Neuro: Awake alert oriented to self Psych: Normal mood and affect G/U: Positive [place]re Skin: no rashes, warm and dry Lymphatic: no cervical or axillary lymphadenopathy Results & Data Results & Data Vital Signs (Past 12 Hours) Vital Signs Pulse Pulse Resp BP Pulse Ox O2 Del Method O2 Flow Rate 10/17/24 06:03 108 H 12 98 10/17/24 06:00 128/76 10/17/24 05:00 103 H 13 96 10/17/24 05:00 145/83 H 10/17/24 04:03 93 H 21 97 10/17/24 04:00 120/73 10/17/24 03:09 97 H 17 134/93 95 10/17/24 02:00 101 H 15 119/82 94 10/17/24 01:00 148/83 H 10/17/24 01:00 114 H 21 94 10/17/24 00:06 87 27 H 97 10/17/24 00:00 120/78 10/17/24 00:00 74 10/16/24 23:03 93 H 27 H 96 10/16/24 23:01 128/79 10/16/24 23:01 86 20 96 Trach Collar 9 10/16/24 22:12 88 27 H 95 10/16/24 22:01 125/73 10/16/24 21:03 89 15 98 10/16/24 21:00 103/88 10/16/24 20:15 Trach Collar 10/16/24 20:03 89 18 96 10/16/24 20:00 120/85 10/16/24 19:30 84 22 96 Trach Collar 9 FiO2 10/17/24 06:03 10/17/24 06:00 10/17/24 05:00 10/17/24 05:00 10/17/24 04:03 10/17/24 04:00 10/17/24 03:09 10/17/24 02:00 10/17/24 01:00 10/17/24 01:00 10/17/24 00:06 10/17/24 00:00 10/17/24 00:00 10/16/24 23:03 10/16/24 23:01 10/16/24 23:01 28 10/16/24 22:12 10/16/24 22:01 10/16/24 21:03 10/16/24 21:00 10/16/24 20:15 10/16/24 20:03 10/16/24 20:00 10/16/24 19:30 28 Laboratory Results 10/17/24 04:15 10/17/24 04:15 Coding Level of Care Code 10572 SUB INP/OBS CARE MIN Diagnoses Pneumonia J18.9 Pleural effusion J90 Acute hypoxemic respiratory failure J96.01 Thrombocytopenia D69.6 History of tobacco abuse Z87.891 Respiratory failure J96.90 COPD (chronic obstructive pulmonary disease) with emphysema J43.9 Severe sepsis A41.9; R65.20 Acute non-ST elevation myocardial infarction (NSTEMI) I21.4 Alcohol withdrawal delirium F10.931 MRSA pneumonia J15.212
--- NOTE | 2024-10-17 07:39 | Discharge Summary ---
Discharge Summary Date of Service October 17, 2024 Principal Dx & Hospital Course #1 = Principal Diagnosis (1) Respiratory failure: Due to MRSA and Legionella pneumonia-Resolved Bronchial lavage growing MRSA Urine Legionella positive completed linezolid and zithromax Consulted infectious disease. bronchoscopy showing significant mucus plugging, cleared out - repeat bronchoscopy still with mucus plugging -tracheostomy -pt breathing off vent -trach collar tolerated overnight -swallow evaluation (2) COPD (chronic obstructive pulmonary disease) with emphysema: Budesonide twice daily xopenex (3) Atrial fibrillation: -amiodarone d/c'd - heparin drip d/c'd -xarelto started -placed on Cardizem 60mg Q6hrs and metoprolol (4) NAOMY (acute kidney injury): ATN due to septic shock Creatinine still rising Still oliguric/anuric Nephrology involved - HD as per nephrology renal function now at baseline (5) Hypertension: -losartan on hold 2nd to hypotension (6) Acute hyponatremia: -con't free water flushes -Na+ 144 (7) Acute non-ST elevation myocardial infarction (NSTEMI): Most likely demand ischemia due to hypoxia and tachycardia. (8) Alcohol withdrawal delirium: Currently on propofol and fentanyl Thiamine and folic acid Plan This is a 64-year-old morbidly obese male with a history of COPD, hypertension who presents with severe respiratory distress, now on BiPAP. Chest x-ray showed pneumonia. He was given DuoNebs, steroids, ceftriaxone in the emergency room. Labs significant for lactic acidosis of 5, anion gap metabolic acidosis, hyponatremia, hypokalemia, elevated troponin, elevated procalcitonin. His blood pressure dropped while in the ER. He is being admitted to the ICU with acute hypoxic respiratory failure, pneumonia with severe sepsis LTAC placement once ready for d/c Admission HPI Per Admitting Provider This is a 64-year-old obese male with a history of COPD, hypertension who presented to the ER with shortness of breath. The patient is not able to provide any history as he is on a BiPAP. He is accompanied by his son who has no knowledge of his medical history. Per ER documentation, he was found to be in respiratory distress by EMS. He was placed on CPAP. Reportedly, the patient had a fall last evening and has a small abrasion on his forehead as a result of the fall. The patient was started on a BiPAP in the ER. His initial blood pressure was 116/89 but it had later dropped to as low as 88/64 while in the ER. His screening tests were significant for normal WBC count, hyponatremia of 123 hypokalemia of 2.3, anion gap metabolic acidosis with an anion gap of 17, CO2 of 17, lactate of 5.4, troponin of 184.5, Pro-Martínez of 4.5. Chest x-ray showed a right upper and middle lobe consolidation. CT a chest showed no PE but confirmed the right upper and middle lobe pneumonia. CT head was done because of the fall, showed no intracranial hemorrhage but a subacute or old right cerebellar infarct is suspected. The patient was able to talk to me minimally through the BiPAP. He tells me that he feels better compared to when he first came. He is breathing better. He got ceftriaxone, DuoNebs, steroids and 3 L of IV fluid in the emergency room. The ED physician informed the school guidance counselor of consult. I will admit the patient to the ICU. Discharge Exam GENERAL APPEARANCE NAD EYES lids/conjunctiva normal. EARS/NOSE/THROAT Mucous membranes moist, nares normal, lips/teeth normal uvula midline without oral pharyngeal erythema, exudate or swelling TMs normal bilaterally. No lymphangitis/lymphedema. HEAD/NECK Tracheostomy RESPIRATORY respiratory effort normal, speaks in full sentences, no tripod position, no accessory muscle use. Lungs clear to auscultation without rhonchi, wheezes, rales CARDIAC Regular rate and rhythm, no edema. ABDOMINAL Soft, ND/NT. No evidence of fluid wave. No pulsatile masses on exam, rebound tenderness, Platt sign or pain over Mcburney's point. MUSCLES/EXTREMITIES No abnormal range of motion, no swelling. SKIN Warm, pink and dry. No rashes, dermatoses, petechiae or lesions. NEUROLOGICAL Sedated PSYCH Normal mood and affect. Judgement/competence is appropriate Discharge Plan Discharge Items Patient Disposition: Home - Self-Care Reason For Visit: RESP. DISTRESS Discharge Diagnosis: asdf Condition on Discharge: Critical Activity: Per Instructions section Non-emergency contact: Primary Care Provider Call non-emergency contact if: you have any medication questions and your symptoms worsen Follow-up/Referrals: Bryan Cali CRNP [Primary Care Provider] - Diet: Regular Addtl Attending Provider Instructions: Call 911 and go to the Emergency Room if: * You have tightness or pain in your chest that does not go away with rest or Nitroglycerin * You are very short of breath even with rest Call your doctor if any of the following symptoms or problems start or get worse: * Shortness of breath or difficulty breathing * Wake up at night short of breath * Chest pain * Cough * Swelling of your hands, fee, or legs * More fatigued or tired with your normal activity * Palpitations - sudden fast heart beats WEIGHT * Weigh yourself every morning after using the bathroom. * Use the same scale. * Wear the same amount of clothing. * Write your weight down on your chart. * Call your doctor if you gain more than 2-3 pounds in 1-2 days. MEDICATIONS * Use this discharge instruction sheet for instructions. * Take your medications at the time your doctor ordered. * Do not skip a dose of your medicines. * If you miss a dose of medicine, take as soon as possible, but DO NOT DOUBLE A DOSE. * Read your medicine information when you get home. * Know all of the side effects of your medicine. * Call your doctor's office if you have any side effects. * Be sure all of your doctors know what medicine and herbs you take (including cold, flu, and herbal medicine). * Pain Medicine: If you do not get relief from your pain, please call your doctor for help. Take the following with you to your follow-up doctor appointments: * Weight Chart * Medication List * List of questions Do not drink excessive alcohol, beer or wine. Pending Studies at Discharge: No Stand[facility]Alone [facility]: [facility] Work[facility]School Release, Smoking Cessation Medications and DC Order Prescriptions: New diltiazem HCl 60 mg Tablet 60 mg PO Q6 Qty: 90 0RF metoprolol tartrate 25 mg Tablet 50 mg PO Q8H Qty: 90 0RF Xarelto 20 mg Tablet 20 mg PO QDD Qty: 30 0RF acetaminophen 325 mg/10.15 mL Suspension 650 mg PO Q6H PRN (Reason: fever or pain) Qty: 304.5 0RF oxycodone 5 mg/5 mL Solution 5 mg PO Q8H PRN (Reason: pain) Qty: 30 0RF melatonin 3 mg Tablet 3 mg PO HS PRN (Reason: sleep) Qty: 30 0RF thiamine HCl (vitamin B1) 100 mg Tablet 100 mg PO DAILY Qty: 30 0RF folic acid 1 mg Tablet 1 mg PO DAILY Qty: 30 0RF Continued albuterol sulfate 2.5 mg /3 mL (0.083 %) solution for nebulization 2.5 mg inhalation QID PRN (Reason: shortness of breath or wheezing) Qty: 180 3RF Patient Comments: 09/29- no fill history unable to verify ipratropium bromide 0.02 % solution 2.5 ml inhalation QID PRN (Reason: shortness of breath or wheezing) Qty: 150 3RF Patient Comments: 09/29- no fill history unable to verify albuterol sulfate 90 mcg/actuation HFA aerosol inhaler 2 puff inhalation Q6H PRN (Reason: shortness of breath or wheezing) Qty: 18 3RF Patient Comments: 09/29- no fill history unable to verify Trelegy Ellipta 100-62.5-25 mcg blister with device 1 inh inhalation DAILY Qty: 28 0RF Discontinued losartan 100 mg tablet 100 mg PO DAILY Qty: 14 0RF clobetasol 0.025 % cream 1 applic topical DAILY PRN (Reason: Other) Patient Comments: 09/29- no fill history unable to verify (DME) nebulizers Misc See Rx Instructions .Route Qty: 1 0RF Rx Instructions: As directed (DME) nebulizer accessories Kit See Rx Instructions .Route Qty: 1 0RF Rx Instructions: As directed Discharge Orders: Discharge Order (Routine); Ordered 10/17/24 Ordered By: Cornel Gonzalez Admission Data Admit Date/Time: 09/29/24 13:22 Attending Provider: Cornel Gonzalez Admit Provider: Pa Younger Primary Care Provider: Bryan Cali Other Providers: Pa Younger; Zeyad Ross; Faraz Wagner; Naveen Benitez Kevin C.; Melvi Canada; Wade Robledo; Hank Marie; Belkys Veronica; Lala Langston; Linda Montes; Nancy Gardiner; Zackery Cornejo; Emanuel Rodriguez; Janice Patterson; Darryl Perez; Parul Rick; Kristal Montenegro; Arleen Pizarro; Chica Richter; Cory Recinos; Anthony Robles; Venkat Phillips; Saba Perdomo; Anglela Shipman Jr; Kaden Ruiz; Liu Olson; Nacho Collins; Denton Nava; Mikki Pollock; Myron Mccann I; Shannan De Dios; Sukhjinder Wilks; Kerwin Robbins; Donavon Roldan; Bernardo Felder; [facility] Stay Data Consultations 09/29/24 12:23 ED Decision to Admit Stat 09/29/24 13:22 Consult Director [employer] Routine 10/02/24 07:37 Consult Nephrology Stat 10/02/24 13:56 Consult Infectious Diseases Routine 10/07/24 11:43 Consult Gastroenterology Routine Diagnostic Imagining Performed 09/29/24 11:02 CT cervical spine wo con Stat CT head/brain wo con Stat 09/29/24 12:28 CT angio chest PE protocol Stat 09/30/24 13:27 MRI Brain [MR brain wo/w con] Urgent 10/01/24 09:33 US point of care ultrasound Urgent 10/02/24 08:50 US point of care ultrasound Urgent 10/06/24 08:56 CT chest diagnostic wo con Stat CT head/brain wo con Stat 10/07/24 11:36 US RUQ [US liver] Urgent 10/11/24 10:17 US venous doppler UE BI Urgent Pending Results Patient Have Any Pending Studies at Discharge: No Discharge Instructions Given to Patient (Per Discharging Provider) Call 911 and go to the Emergency Room if: * You have tightness or pain in your chest that does not go away with rest or Nitroglycerin * You are very short of breath even with rest Call your doctor if any of the following symptoms or problems start or get worse: * Shortness of breath or difficulty breathing * Wake up at night short of breath * Chest pain * Cough * Swelling of your hands, fee, or legs * More fatigued or tired with your normal activity * Palpitations - sudden fast heart beats WEIGHT * Weigh yourself every morning after using the bathroom. * Use the same scale. * Wear the same amount of clothing. * Write your weight down on your chart. * Call your doctor if you gain more than 2-3 pounds in 1-2 days. MEDICATIONS * Use this discharge instruction sheet for instructions. * Take your medications at the time your doctor ordered. * Do not skip a dose of your medicines. * If you miss a dose of medicine, take as soon as possible, but DO NOT DOUBLE A DOSE. * Read your medicine information when you get home. * Know all of the side effects of your medicine. * Call your doctor's office if you have any side effects. * Be sure all of your doctors know what medicine and herbs you take (including cold, flu, and herbal medicine). * Pain Medicine: If you do not get relief from your pain, please call your doctor for help. Take the following with you to your follow-up doctor appointments: * Weight Chart * Medication List * List of questions Do not drink excessive alcohol, beer or wine. Total Time Total Time Spent Total Time Spent (In Minutes): 50 Coding Level of Care Code 70729 INP/OBS DISCH >30 MIN Diagnoses Respiratory failure J96.90 COPD (chronic obstructive pulmonary disease) with emphysema J43.9 Atrial fibrillation I48.91 NAOMY (acute kidney injury) N17.9 Hypertension I10 Acute hyponatremia E87.1 Acute non-ST elevation myocardial infarction (NSTEMI) I21.4 Alcohol withdrawal delirium F10.931
[2024-10-17] MEDS: MAGNESIUM OXIDE 400 MG TAB PO SCH (08:57)
[2024-10-17 09:33] VITALS: TEMP 98.1; O2SAT 96
[2024-10-17 10:15] VITALS: RESP 14
[2024-10-17 10:37] VITALS: BP 129/74; PULSE 97
== END 2024-10-17 10:20 | DRG 4 ==
LOC: ED 10:56 → 1E 13:22 → SUATTDRO 13:22 → 1E 14:13

== ENCOUNTER 2024-12-03 15:31 | Inpatient (IN) ==
[2024-12-03 16:06] LABS: Hematocrit (blood only) 35.8 % (42.0-52.0); Hemoglobin 11.1 g/dl (14.0-18.0); Immature Granulocytes # (auto) 0.03 K/uL (0.01-0.20); Immature Granulocytes % (auto) 0.5 %; Mean Corpuscular Hemoglobin 30.4 pg (25.0-34.0); Mean Corpuscular Volume 98.1 fL (80.0-100.0); Platelet Count 251 K/uL (130-400); RDW Standard Deviation 60.7 fL (36.4-46.3); Red Blood Count 3.65 M/uL (4.70-6.10); White Blood Count 6.01 K/ul (4.8-10.8)
[2024-12-03 16:26] LABS: Alanine Aminotransferase 12.0 U/L (7-52); Albumin Globulin Ratio 1.1 (0.9-2); Albumin Level 3.6 gm/dl (3.4-5.0); Alkaline Phosphatase 99.0 U/L (34-104); Anion Gap 7.0 (3-11); Bilirubin,Total 0.7 mg/dl (0.2-1.0); Blood Urea Nitrogen 6.0 mg/dl (6-23); Calcium 9.0 mg/dl (8.6-10.3); Carbon Dioxide 28.0 mmol/L (21-32); Chloride 105.0 mmol/L (98-107); Creatinine Clr Calc Pharmacy 157.2 ml/min; Globulin 3.2 gm/dl (2.5-4.0); Glucose 91.0 mg/dl (70-99(Fasting)); Potassium 3.8 mmol/L (3.5-5.1); Sodium 140.0 mmol/L (136-145); Total Protein 6.8 gm/dl (6.0-8.3)
--- NOTE | 2024-12-03 16:37 | Emergency Department Note ---
Impression & Plan Acute exacerbation of CHF (congestive heart failure), Acute dyspnea, Bilateral leg edema ED Provider Note HISTORY OF PRESENT ILLNESS: Patient is a 64-year-old male presenting with shortness of breath, lower extremity edema and weight gain. Patient reports that he is not currently on a diuretic. He states in the last 5 days he has had significant increase swelling of his bilateral lower extremities. He states that he is also become very short of breath. He states that he knows he is deconditioned from his previous prolonged hospitalization secondary to Legionella pneumonia, but states that in the last 5 days he has noted a significant decline in that he is only able to walk 10 steps before he has to stop to catch his breath. He states that 2 weeks ago he weighed 250 pounds prior to discharge [facility]. He states that he is now up to 296. He denies any chest pain. He denies any recent fevers or cough. He denies any abdominal pain, nausea or vomiting. Patient is on Eliquis for history of A-fib. ROS: as above PHYSICAL EXAM: Constitutional: Patient appears in no acute distress. HENT: Head: Normocephalic and atraumatic. Eyes: EOMI, PERRL Mouth/Throat: Mucous membranes moist. Neck: Trachea midline. Neck supple. Cardiovascular: Tachycardic with irregularly irregular rhythm. No murmurs, rubs or gallops. Intact distal pulses. Pulmonary/Chest: No respiratory distress. Breath sounds clear and equal bilaterally. Conversationally dyspneic. Coarse breath sounds bilaterally. Abdominal: Abdomen soft, no tenderness, rebound or guarding. Musculoskeletal: No tenderness or deformity noted. +3 pitting edema of bilateral lower extremities extending to the proximal thighs. Skin: Warm and dry. No rash, erythema, pallor or cyanosis Psychiatric: Appropriate mood and affect for situation. Neurological: Alert and keenly responsive. CN II-XII grossly intact, moving all extremities equally and fully. MDM: - Vitals signs showed hypotension, tachycardia and hypoxia. - History obtained via patient. History as above. - Chronic conditions affecting care: HTN; COPD; Afib - Differential diagnoses include, but are not limited to: Congestive heart failure; acute coronary syndrome; COPD/asthma exacerbation; pulmonary edema; pulmonary embolism; pneumonia; pneumothorax; viral syndrome - Order placed for continuous cardiac monitoring. At this time, monitor showed rate of 108 bpm with irregular rhythm, per my interpretation. - External medical records reviewed. Echocardiogram dated 10/07/2024 was reviewed. Patient had normal LV size and low normal systolic function. Estimated EF was 50 to 55%. - EKG image interpreted by myself showed atrial fibrillation. Rate tachycardic at 117 bpm. QT 286. No acute ischemic changes. - Laboratory workup interpreted by myself showed normal WBC; chronic anemia (Hgb 11.1); stable electrolytes; normal creatinine; normal troponin; elevated BNP (235) - CXR image reviewed and interpreted by myself showed some pulmonary vascular congestion, per my interpretation. Radiology notes CHF with a small right pleural effusion. They also note an oval finding in the right midlung which could be fluid in the fissure, focal pneumonia or mass. Patient has not had any fevers or cough to suggest pneumonia and is fluid overloaded so this is likely in the setting of fluid. - Given 80 mg IV lasix in ER. - Discussion was had with case managers about patient's case and need for admission - Hospitalist consulted for admission - [facility] and [facility]. ASSESSMENT AND PLAN: Diagnosis: Acute CHF exacerbation; acute dyspnea; bilateral lower extremity edema Plan: Admit Past Med/Surg History Problem List (Updated 12/03/24 @ 16:40 by Vera Nielsen MD) Bilateral leg edema (Acute) Acute dyspnea (Acute) Acute exacerbation of CHF (congestive heart failure) (Acute) Legionella pneumonia MRSA pneumonia ARDS (adult respiratory distress syndrome) Atrial fibrillation NAOMY (acute kidney injury) Alcohol withdrawal delirium Severe sepsis Airway intubation performed without difficulty Thrombocytopenia Severe sepsis with septic shock Lactic acidosis Acute hypoxemic respiratory failure Pleural effusion Acute hyponatremia (Acute) Acute non-ST elevation myocardial infarction (NSTEMI) (Acute) Fall (Acute) Head injury (Acute) Hypokalemia (Acute) Acute exacerbation of chronic obstructive pulmonary disease (Acute) Respiratory failure (Acute) Elevated LFTs Anemia COPD (chronic obstructive pulmonary disease) with emphysema KIRBY (dyspnea on exertion) History of tobacco abuse Lower extremity edema Hypertension Medical History Acute subdural hematoma Sciatica Surgical History S/P brain surgery S/P wisdom tooth extraction Family History Mother Breast cancer Myocardial infarction Ovarian cancer Father Hodgkin lymphoma Denies family history of Prostate cancer Colorectal cancer Social History Smoking Status: Former smoker Tobacco Type: Cigarettes Age Started Using Tobacco: 17; Age Quit Using Tobacco: 52; packs per day: 1; Second Hand Exposure: No; Do You Dip or Chew Tobacco: No; Hx Alcohol Use: Yes Alcohol type: beer Hx Substance Use: Yes Prescribed Medications: Marijuana Last Used Substance: Unknown Substance Use Type Other:: Patient has medical marijuana card Preferred Language: Bur[place]ian Communication Ability: Effective Visual Impairment: No Limitations Hearing Ability: Normal Administrative Supervisor Required: No Beliefs That Will Affect Care: None marital status: Current Living Situation: Spouse current occupational status: unemployed How many Children do You have: 1 Feels Safe at Home: Yes Childhood Exposure to Second-Hand Smoke: Yes Diet: regular Diet Comment: Regular caffeine: Yes during the past year weight has: remained stable Dental Care, Regularly: No Physical Activity Frequency: 3-4 Times per Week Seatbelt Use: sometimes Sunscreen Use: No Assistive Devices: None Allergies Allergies Allergy/AdvReac Type Severity Reaction Status Date / Time hydrocodone Allergy Unknown hives Verified 12/03/24 08:49 Home Meds Home Medications Medication Instructions Recorded Confirmed zolpidem 5 mg tablet 5 mg PO ONCE 12/03/24 12/03/24 Previous Rx's Medication Instructions Recorded albuterol sulfate 2.5 mg/3 mL 2.5 mg (3 mL) inhalation QID PRN 06/10/22 (0.083 %) solution for nebulization shortness of breath or wheezing #180 mL ipratropium bromide 0.02 % 2.5 ml inhalation QID PRN 06/28/22 solution for inhalation shortness of breath or wheezing #150 mL albuterol sulfate 90 mcg/actuation 2 puff inhalation Q6H PRN 02/01/23 aerosol inhaler shortness of breath or wheezing #18 grams fluticasone fur. 100 mcg-umeclid 1 inh inhalation DAILY #28 ea 01/24/24 62.5 mcg-vilant 25 mcg inhalat.powder (Trelegy Ellipta) acetaminophen 325 mg/10.15 mL oral 650 mg (20.3 mL) PO Q6H PRN fever 10/17/24 suspension or pain #304.5 mL folic acid 1 mg tablet 1 mg PO DAILY #30 tabs 10/17/24 melatonin 3 mg tablet 3 mg PO HS PRN sleep #30 tabs 10/17/24 oxycodone 5 mg/5 mL oral solution 5 mg (5 mL) PO Q8H PRN pain #30 mL 10/17/24 apixaban 5 mg tablet (Eliquis) 5 mg PO BID #60 tabs 12/03/24 diltiazem HCl 240 mg 240 mg PO DAILY #30 caps 12/03/24 capsule,extended release 24 hr, controlled (DILT-XR) metoprolol tartrate 100 mg tablet 100 mg PO Q12H #60 tabs 12/03/24 Results & Data (ED) Vital Signs Vital Signs - 24 hr 12/03/24 15:33 12/03/24 16:36 Pulse Rate 108 H Pulse Rate [Apical] 106 H Respiratory Rate 18 18 Respiratory Effort / Characteristics Non-Labored Spontaneous Respiratory Depth Normal Respiratory Pattern Regular Blood Pressure 144/101 H Blood Pressure [Right Arm] 149/120 H Blood Pressure Mean 115 Blood Pressure Mean [Right Arm] 129 Pulse Oximetry 91 Oxygen Delivery Method Room Air Room Air Sepsis Recent Fever Within 48 Hours No Sepsis New/Unexplained Change in Mental Status No Sepsis Action Taken by Nursing No Action Required Laboratory Data 12/03/24 Unknown 12/03/24 Unknown Lab Results 12/03/24 Range/Units Unknown WBC 6.01 (4.8-10.8) K/ul RBC 3.65 L (4.70-6.10) M/uL Hgb 11.1 L (14.0-18.0) g/dl Hct 35.8 L (42.0-52.0) % MCV 98.1 (80.0-100.0) fL MCH 30.4 (25.0-34.0) pg MCHC 31.0 L (32.0-36.0) g/dL RDW Std Deviation 60.7 H (36.4-46.3) fL RDW Coeff of [place] 16.9 H (11.5-14.5) % Plt Count 251 (130-400) K/uL MPV 9.5 (9.4-12.4) fL Immature Gran % (Auto) 0.5 % Neut % (Auto) 59.2 % Lymph % (Auto) 19.5 % [place] % (Auto) 9.8 % Eos % (Auto) 10.0 % Baso % (Auto) 1.0 % Neut # (Auto) 3.56 (1.40-6.50) K/uL Lymph # (Auto) 1.17 L (1.20-3.40) K/uL [place] # (Auto) 0.59 (0.11-0.59) K/uL Eos # (Auto) 0.60 H (0.00-0.50) K/uL Baso # (Auto) 0.06 (0.00-0.20) K/uL Immature Gran # (Auto) 0.03 (0.01-0.20) K/uL Sodium 140 (136-145) mmol/L Potassium 3.8 (3.5-5.1) mmol/L Chloride 105 (98-107) mmol/L Carbon Dioxide 28 (21-32) mmol/L Anion Gap 7 (3-11) BUN 6 (6-23) mg/dl Creatinine 0.66 (0.6-1.4) mg/dl Est Cr Clr Drug Dosing 157.2 ml/min eGFR 105.39 BUN/Creatinine Ratio 9.1 L (10-20) Glucose 91 (70-99(Fasting)) mg/dl Calcium 9.0 (8.6-10.3) mg/dl Total Bilirubin 0.7 (0.2-1.0) mg/dl AST 22 (13-39) U/L ALT 12 (7-52) U/L Alkaline Phosphatase 99 (34-104) U/L Troponin I High Sens 4.2 (0-20) pg/ml B-Natriuretic Peptide 235 H (0-100) pg/ml Total Protein 6.8 (6.0-8.3) gm/dl Albumin 3.6 (3.4-5.0) gm/dl Globulin 3.2 (2.5-4.0) gm/dl Albumin/Globulin Ratio 1.1 (0.9-2) Discharge Plan Visit Data Chief Complaint: Cardiac Assessment Stated Complaint: POSS CONGESTIVE HEART FAILURE ED Provider: Vera Nielsen Discharge Problem: Acute exacerbation of CHF (congestive heart failure), Acute dyspnea, Bilateral leg edema Condition: Fair Forms Stand Alone Forms: My [facility] Prescriptions Prescriptions: No Action albuterol sulfate 2.5 mg /3 mL (0.083 %) solution for nebulization 2.5 mg inhalation QID PRN (Reason: shortness of breath or wheezing) Qty: 180 3RF Patient Comments: 09/29- no fill history unable to verify ipratropium bromide 0.02 % solution 2.5 ml inhalation QID PRN (Reason: shortness of breath or wheezing) Qty: 150 3RF Patient Comments: 09/29- no fill history unable to verify albuterol sulfate 90 mcg/actuation HFA aerosol inhaler 2 puff inhalation Q6H PRN (Reason: shortness of breath or wheezing) Qty: 18 3RF Patient Comments: 09/29- no fill history unable to verify Trelegy Ellipta 100-62.5-25 mcg blister with device 1 inh inhalation DAILY Qty: 28 0RF zolpidem 5 mg tablet 5 mg PO ONCE Eliquis 5 mg tablet 5 mg PO BID Qty: 60 5RF diltiazem HCl [DILT-XR] 240 mg capsule,ext.rel 24h degradable 240 mg PO DAILY Qty: 30 0RF metoprolol tartrate 100 mg tablet 100 mg PO Q12H Qty: 60 4RF acetaminophen 325 mg/10.15 mL Suspension 650 mg PO Q6H PRN (Reason: fever or pain) Qty: 304.5 0RF oxycodone 5 mg/5 mL Solution 5 mg PO Q8H PRN (Reason: pain) Qty: 30 0RF melatonin 3 mg Tablet 3 mg PO HS PRN (Reason: sleep) Qty: 30 0RF folic acid 1 mg Tablet 1 mg PO DAILY Qty: 30 0RF Referrals Referrals: Bryan Cali CRNP [Primary Care Provider] -
[2024-12-03] MEDS: FUROSEMIDE 40 MG/4 ML VIAL IV ONE (16:57)
--- NOTE | 2024-12-03 17:23 | XRay Report ---
Chest radiograph, one view History: Dyspnea Comparison: 10/16/2024 Findings/impression: Single AP view of the chest performed. A focal area of opacity is seen at the right upper lobe, abutting the fissure, where there is an area of opacity that was seen on 09/29/2024, and may represent residual infection, atelectasis, or possibly an area of loculated fluid within the fissure. There is also a small right basilar pleural effusion. Mild streaky right basilar opacity, favors atelectasis. No gross pulmonary edema. No pneumothorax. The cardiomediastinal silhouette is within normal limits. Electronically signed by Dominic Acevedo 12-03-2024 5:22 PM
[2024-12-03 18:05] LABS: Appearance Urine Clear (Clear); Glucose Urine UA Negative (Negative)
--- NOTE | 2024-12-03 18:07 | History & Physical Report ---
"Date of Service December 03, 2024 Assessment & Plan (1) Heart failure with preserved ejection fraction (HFpEF): (2) Acute dyspnea: (3) Bilateral leg edema: (4) Atrial fibrillation: (5) COPD (chronic obstructive pulmonary disease) with emphysema: Plan Jamie is a pleasant 64-year-old man with past medical history of recent prolonged hospitalization/rehab stay secondary to respiratory failure and MRSA and Legionella pneumonia, temporary dialysis due to NAOMY/ATN secondary to septic shock, COPD with emphysema, atrial fibrillation, hypertension, alcohol withdrawal delirium, anemia. Presented with 5 days of increasing lower extremity swelling and progressive shortness of breath. He has had approximately 46 pound weight gain since his discharge from [facility] approximately 2 weeks ago. He is no longer able to walk more than 10 steps without stopping to catch his breath. He was admitted for aggressive diuresis and management of his A fib with RVR. #Acute on chronic HFpEF | Acute dyspnea | Significant bilateral lower extremity edema - Most recent echocardiogram in September 2024 notes low normal systolic function with EF 50-55% - Venous Doppler studies negative for DVT bilaterally - S/p 80 mg IV Lasix x 1 in ED - Start Lasix 80 mg IV Q8h - adjust dosing as indicated - Monitor I&O's - Daily standing weights - Repeat echocardiogram ordered - PT/OT evals - Trend BMP, mag with AM labs #Atrial fibrillation with RVR - rates currently elevated in 110s at rest - asymptomatic. Likely contributing to his acute HFpEF exacerbation. Getting established with cardiology outpatient - Continue Eliquis 5 mg BID, metoprolol 100 mg BID - Increase diltiazem to 360 mg daily (previously on 240 mg daily) - TSH ordered - EKG ordered #Focal area in RUL - in setting of recent MRSA and legionella pneumonia - Chest CT ordered - Pulmonology consulted #Anemia - hgb at baseline on admission - B12, folate, iron panel, ferritin added to AM labs #COPD with emphysema - Continue home inhalers #Hypertension continue diltiazem and metoprolol. Previously took losartan but this was discontinued secondary to hypotension #History of alcohol withdrawal delirium - occurred during last hospitalization. Drinks a couple oz of liquor nightly - Monitor for signs of alcohol withdrawal - Continue folic acid - Started thiamine and multivitamin daily VTE PPx: Eliquis Dispo: Admission to med/tele Reviewed outpatient records History of Present Illness Chief Complaint: Shortness of breath, lower extremity edema Primary Care Provider: HAYES Thakur Jamie is a pleasant 64-year-old man with past medical history of recent prolonged hospitalization/rehab stay secondary to respiratory failure and MRSA and Legionella pneumonia, temporary dialysis due to NAOMY/ATN secondary to septic shock, COPD with emphysema, atrial fibrillation, hypertension, alcohol withdrawal delirium, anemia. He presented from home at the recommendation of his PCP with increased lower extremity swelling and shortness of breath x 5 days. At the time of my exam, the patient was lying in bed in no acute distress. He states for the past 5 days he has noticed significant increase in his lower extremity swelling and progressive shortness of breath. He reports he has been deconditioned from his recent prolonged hospital/rehab stay, but was previously doing better than he has been for the past few days. Now, when he takes more than 10 steps, he gets extremely winded and has to sit down to catch his breath. He also reports he weighed 250 pounds on discharge from [facility] 2 weeks ago and his weight is up to 296 pounds in the ED on presentation. He does not take diuretics at baseline as he has no formal CHF diagnosis. He did have an echocardiogram done in September 2024 which noted an EF of 50-55% at that time. He had 1 dose of IV Lasix 80 mg in the ED and reports an improvement in his dyspnea at rest already. He denies any heart palpitations or chest pain at this time. Vitals on admission significant for elevated BP at 140/101, tachycardia with HR 116; vitals otherwise stable. Labs on admission are significant for elevated BNP at 235 and baseline no rmocytic anemia. No leukocytosis. Electrolytes WNL. Renal function WNL. Liver enzymes WNL. Troponin negative at 4.2. UA negative. Outpatient CXR from today notes CHF with small right pleural effusion and interval overall finding at the right midlung with differential diagnosis including fluid in the fissure, focal pneumonia, and mass. CXR in ED on presentation notes small right basilar pleural effusion, mild streaky right basilar opacity favoring atelectasis, no gross pulmonary edema or pneumothorax, and a focal area of opacity seen at the right upper lobe abutting the fissure that may represent residual infection, atelectasis, or possibly an area of loculated fluid within the fissure. We discussed code status, patient wishes to be a full code. Allergies Allergy/AdvReac Type Severity Reaction Status Date / Time hydrocodone Allergy Unknown hives Verified 12/03/24 17:02 Home Medications Medication Instructions Recorded Confirmed Type albuterol sulfate 2.5 mg/3 mL 2.5 mg (3 mL) inhalation QID PRN 06/10/22 12/03/24 Rx (0.083 %) solution for nebulization shortness of breath or wheezing #180 mL ipratropium bromide 0.02 % 2.5 ml inhalation QID PRN 06/28/22 12/03/24 Rx solution for inhalation shortness of breath or wheezing #150 mL albuterol sulfate 90 mcg/actuation 2 puff inhalation Q6H PRN 02/01/23 12/03/24 Rx aerosol inhaler shortness of breath or wheezing #18 grams fluticasone fur. 100 mcg-umeclid 1 inh inhalation DAILY #28 ea 01/24/24 12/03/24 Rx 62.5 mcg-vilant 25 mcg inhalat.powder (Trelegy Ellipta) folic acid 1 mg tablet 1 mg PO DAILY #30 tabs 10/17/24 12/03/24 Rx melatonin 3 mg tablet 3 mg PO HS PRN sleep #30 tabs 10/17/24 12/03/24 Rx apixaban 5 mg tablet (Eliquis) 5 mg PO BID #60 tabs 12/03/24 12/03/24 Rx diltiazem HCl 240 mg 240 mg PO DAILY #30 caps 12/03/24 12/03/24 Rx capsule,extended release 24 hr, controlled (DILT-XR) metoprolol tartrate 100 mg tablet 100 mg PO Q12H #60 tabs 12/03/24 12/03/24 Rx oxycodone 5 mg tablet 5 mg PO Q8H PRN Pain 12/03/24 12/03/24 History zolpidem 5 mg tablet 5 mg PO HS PRN Sleep 12/03/24 12/03/24 History Past Med/Surg History Problem List (Updated 12/03/24 @ 18:57 by Ivis Calvo PA-C) Heart failure with preserved ejection fraction (HFpEF) Bilateral leg edema (Acute) Acute dyspnea (Acute) Acute exacerbation of CHF (congestive heart failure) (Acute) Legionella pneumonia MRSA pneumonia ARDS (adult respiratory distress syndrome) Atrial fibrillation NAOMY (acute kidney injury) Alcohol withdrawal delirium Severe sepsis Airway intubation performed without difficulty Thrombocytopenia Severe sepsis with septic shock Lactic acidosis Acute hypoxemic respiratory failure Pleural effusion Acute hyponatremia (Acute) Acute non-ST elevation myocardial infarction (NSTEMI) (Acute) Fall (Acute) Head injury (Acute) Hypokalemia (Acute) Acute exacerbation of chronic obstructive pulmonary disease (Acute) Respiratory failure (Acute) Elevated LFTs Anemia COPD (chronic obstructive pulmonary disease) with emphysema KIRBY (dyspnea on exertion) History of tobacco abuse Lower extremity edema Hypertension Medical History Acute subdural hematoma Sciatica Surgical History S/P brain surgery S/P wisdom tooth extraction Family History Mother Breast cancer Myocardial infarction Ovarian cancer Father Hodgkin lymphoma Denies family history of Prostate cancer Colorectal cancer Social History Smoking Status: Former smoker Tobacco Type: Cigarettes Age Started Using Tobacco: 17; Age Quit Using Tobacco: 52; packs per day: 1; Smoking End Date: 2014; Second Hand Exposure: No; Do You Dip or Chew Tobacco: No; Tobacco Cessation Education Requested by Patient: No Hx Alcohol Use: Yes Alcohol type: beer Hx Substance Use: Yes Prescribed Medications: Marijuana Last Used Substance: Unknown Substance Use Type Other:: [facility] Preferred Language: Panamanian Communication Ability: Effective Visual Impairment: No Limitations Hearing Ability: Normal Bedspread Cutter Required: No Beliefs That Will Affect Care: None marital status: Current Living Situation: Spouse and Family Current Living Situation Comment: and grandson current occupational status: unemployed How many Children do You have: 1 Other Information That Helps Us Care for You: No Feels Safe at Home: Yes Safety Concerns: Feels Safe At This Time Childhood Exposure to Second-Hand Smoke: Yes Diet: regular Diet Comment: Regular caffeine: Yes during the past year weight has: remained stable Dental Care, Regularly: No Physical Activity Frequency: 3-4 Times per Week Seatbelt Use: sometimes Sunscreen Use: No Assistive Devices: Glasses, Walker and Wheelchair Review of Systems Review of Systems: All systems reviewed & are unremarkable except as noted in HPI & below Respiratory: + dyspnea and + dyspnea on exertion Physical Exam Physical Exam: General: No acute distress, nondiaphoretic, well-developed, well-nourished. Skin: Warm, dry. No rashes noted. Extremities: 3+ pitting edema in lower extremities extending to mid thigh bilaterally. Mild erythema of distal lower extremities bilaterally without signs of cellulitis. Cardiac: Irregularly irregular rhythm with tachycardic rate in 110s. No murmurs, gallops, or rubs. Pulm: Diminished breath sounds throughout all lung urrutia. Bibasilar coarse breath sounds. Normal respiratory effort. 98% on room air. Abdominal: Soft, nontender, nondistended. Bowel sounds present. Neuro: A&O x3. No focal neurological deficits. Results & Data Results & Data Vital Signs (Past 12 Hours) Vital Signs Pulse Pulse Resp BP BP Pulse Ox O2 Del Method 12/03/24 17:23 116 H 18 140/101 H 98 Room Air 12/03/24 17:14 98 Room Air 12/03/24 16:56 97 H 12/03/24 16:36 106 H 18 149/120 H Room Air 12/03/24 15:33 108 H 18 144/101 H 91 Room Air Laboratory Results Reviewed CBC with differential, CMP/chemistries, UA Diagnostic Findings Reviewed CXR Code Status & VTE Plan VTE Prophylaxis Plan VTE Prophylaxis will be ordered: Yes Supervising Physician Co-Signing Physician Notes PA Supervision Note: I personally saw and examined the patient. I verified all escobar points and agree with HUNG Calvo with the following exceptions and/or additions: S-Pt here with worsening SOB, leg swelling, and weight gain of 46 lbs in 2 weeks. He had a prolonged critical care stay followed by rehab stay for sepsis with shock, VDRF from MRSA and Legionella PNA.Since returning home, he reports he does take his meds as prescribed. He does not drink excessive amounts of fluid-i.e. a glass of pineapple juice and 1-2 glasses of water each day. He does eat foods rich in sodium like Rupesh Meng mac and cheese microwave meals. History snd ROS otherwise reviewed as above O- Vitals reviewed Gen: [AAOx3, NAD, obese] HEENT: [anicteric sclerae, EOMI] CV: [irreg irreg no mgr nl S1S2] Pulm: [diminished breath sounds at bases bilat, +crackles right middle lung field, no wheezing or rhonchi] Abd: [+BS soft NT ND] Ext: [2+ pitting edema of legs bilat to thighs 2+ DP pulses] Skin: [legs with mild pink coloration] Neuro: [full strength throughout] CBC, BMP, BNP, LFTs, troponin reviewed CXR image personally reviewed A/P-64 yo male here with acute on chronic HFpEF likely from rapid afib and excessive sodium intake in diet. -diurese, keep lytes replete -improve rate control-increase dilt po to 360mg po daily -consult PULM for persistent opacities in right lung now 8 weeks after treatment for PNA-could have underlying malignancy? -fluid restrict, low sodium diet PG Care Time/CCT Total # of Minutes Spent Total Time Spent with Patient: Total time spent is greater than 50% in coordination of care (as documented) at patient's floor/unit and/or counseling patient: Coding Level of Care Code 21173 INT INP/OBS CARE 3/75MIN Diagnoses Heart failure with preserved ejection fraction (HFpEF) I50.30 Acute dyspnea R06.00 Bilateral leg edema R60.0 Atrial fibrillation I48.91 COPD (chronic obstructive pulmonary disease) with emphysema J43.9"
[2024-12-03 19:27] LABS: Magnesium 1.6 mg/dl (1.7-2.4)
[2024-12-03 19:43] LABS: Thyroid Stimulating Hormone 4.902 uIu/ml (0.300-4.500)
--- NOTE | 2024-12-03 20:04 | CT Scan Report ---
CT CHEST WITHOUT CONTRAST: HISTORY: TECHNIQUE: CT of the chest was obtained without intravenous contrast. Coronal and sagittal reformats were created. COMPARISON: Thoracic CT October 06, 2024. FINDINGS: LOWER NECK: Normal thyroid. LYMPH NODES: There are enlarged mediastinal and hilar lymph nodes. CARDIOVASCULAR: Cardiac size is stably and mildly enlarged. Coronary artery calcifications are noted. No aortic aneurysm. LUNGS: Since the previous thoracic CT dated October 06, 2024, diffuse right hemithoracic airspace disease/pneumonia is improving however there is residual disease in the right upper and middle lobes. Mild emphysema PLEURA: Small to moderate right pleural fluid has mildly increased. There is no pneumothorax. UPPER ABDOMEN: No acute findings. OSSEOUS STRUCTURES: There are healing of right 8th through 10th ribs with callus formation. Old left 10th rib fracture with callus. IMPRESSION: Since the previous thoracic CT dated October 06, 2024, diffuse right hemithoracic airspace disease/pneumonia has been improving however there is residual disease in the right upper and middle lobes. (Recurrent disease not excluded based on clinical context) Small to moderate right pleural fluid has mildly increased. This could represent a parapneumonic effusion. Difficult to exclude an underlying neoplastic/endobronchial lesion given the current pleural-parenchymal process. Recommended continued imaging and clinical follow-up to ensure an uneventful resolution. A follow-up thoracic CT in 4-6 weeks may be considered to reassess Electronically signed by Giuliano Cobian 12-03-2024 8:02 PM
[2024-12-03 20:19] LABS: T4 Free Thyroxine 0.96 ng/dl (0.61-1.60)
[2024-12-03] MEDS ORDERED: ONDANSETRON INJ 2 MG/ML 2 ML VIAL IV PRN (21:57)
[2024-12-03] MEDS ORDERED: IPRATROPIUM BROMIDE NEB SOLN 0.02% 0.5MG/2.5ML VIAL INH PRN (21:57)
[2024-12-03] MEDS ORDERED: ALBUTEROL HFA 8 GM INHALER INH PRN (21:57)
[2024-12-03] MEDS ORDERED: MELATONIN 3 MG TAB PO PRN (21:57)
[2024-12-03] MEDS ORDERED: ALUMINUM/MAGNESIUM SUSP 30 ML UDC PO PRN (21:57)
[2024-12-03] MEDS ORDERED: POLYETHYLENE (MIRALAX) 17 GM PACK PO PRN (21:57)
[2024-12-03] MEDS ORDERED: ACETAMINOPHEN 325 MG TAB PO PRN (21:57)
[2024-12-03] MEDS: METOPROLOL TARTRATE 100 MG TAB PO SCH (22:20)
[2024-12-03] MEDS: APIXABAN 5 MG TABLET PO SCH (22:20)
[2024-12-03] MEDS: MAGNESIUM SULFATE / D5W 1 GM/100 ML BAG IV SCH (23:26)
[2024-12-03] MEDS: FUROSEMIDE 40 MG/4 ML VIAL IV SCH (23:26)
[2024-12-03] MEDS: POTASSIUM CHLORIDE CRTAB 20 MEQ TABCR PO STA (23:26)
[2024-12-04 06:55] LABS: Hematocrit (blood only) 34.9 % (42.0-52.0); Hemoglobin 11.4 g/dl (14.0-18.0); Immature Granulocytes # (auto) 0.05 K/uL (0.01-0.20); Immature Granulocytes % (auto) 0.7 %; Mean Corpuscular Hemoglobin 31.9 pg (25.0-34.0); Mean Corpuscular Volume 97.8 fL (80.0-100.0); Platelet Count 240 K/uL (130-400); RDW Standard Deviation 58.3 fL (36.4-46.3); Red Blood Count 3.57 M/uL (4.70-6.10); White Blood Count 6.89 K/ul (4.8-10.8)
[2024-12-04 07:42] LABS: Anion Gap 9.0 (3-11); Blood Urea Nitrogen 8.0 mg/dl (6-23); Calcium 8.9 mg/dl (8.6-10.3); Carbon Dioxide 31.0 mmol/L (21-32); Chloride 99.0 mmol/L (98-107); Creatinine Clr Calc Pharmacy 149.5 ml/min; Glucose 92.0 mg/dl (70-99(Fasting)); Iron 104.0 mcg/dl (35-175); Magnesium 1.8 mg/dl (1.7-2.4); Potassium 3.2 mmol/L (3.5-5.1); Sodium 139.0 mmol/L (136-145); Total Iron Binding Cap Calc 330.0 mcg/dl (250-450); Transferrin 236.0 mg/dl (200-360); Transferrin (FE) Percent Satur 32.0 % (20-50)
[2024-12-04 07:43] LABS: Ferritin 126.6 ng/ml (8-388)
[2024-12-04 07:52] LABS: Folate (Folic Acid),Ser orPlas > 22.30 ng/ml (>5.38)
[2024-12-04 07:53] LABS: Vitamin B12 291 pg/ml (180-914)
[2024-12-04] MEDS: THIAMINE HCL 100 MG TAB PO SCH (08:10)
[2024-12-04] MEDS: FLUTICASONE FUROATE 100MCG 14 PUFFS/INHALER INH SCH (08:10)
[2024-12-04] MEDS: UMECLIDINIUM/VILANTEROL 62.5/25MCG 7 PUFFS/INHALER INH SCH (08:10)
[2024-12-04] MEDS: FOLIC ACID 1 MG TAB PO SCH (08:10)
[2024-12-04] MEDS: MULTIVITAMIN TAB PO SCH (08:10)
[2024-12-04] MEDS ORDERED: NON-FORMULARY MEDICATION (Fluticasone-Umeclidin-Vilanter [Trelegy Ellipta] 100-62.5-25 mcg INH SCH (09:00)
--- NOTE | 2024-12-04 09:56 | Hospitalist Progress Note ---
"Date of Service December 04, 2024 Assessment & Plan (1) Heart failure with mildly reduced ejection fraction (HFmrEF): (2) Acute dyspnea: (3) Bilateral leg edema: (4) Atrial fibrillation: (5) COPD (chronic obstructive pulmonary disease) with emphysema: Plan Jamie is a pleasant 64-year-old man with past medical history of recent prolonged hospitalization/rehab stay secondary to respiratory failure and MRSA and Legionella pneumonia, temporary dialysis due to NAOMY/ATN secondary to septic shock, COPD with emphysema, atrial fibrillation, hypertension, alcohol withdrawal delirium, anemia. Presented with 5 days of increasing lower extremity swelling and progressive shortness of breath. He has had approximately 46 pound weight gain since his discharge from [facility] approximately 2 weeks ago. He is no longer able to walk more than 10 steps without stopping to catch his breath. He was admitted for aggressive diuresis and management of his A fib with RVR. #Acute on chronic HFmrEF | Acute dyspnea | LE edema - significant response to diuresis with much improvement in LE edema and breathing status - Venous Doppler studies negative for DVT bilaterally - Repeat echocardiogram notes mildly dilated left ventricle with mildly reduced systolic function, EF 45-50%. No regional wall motion abnormalities. Mild global hypokinesis. No LVH. Right ventricle not well-visualized but appears dilated. No significant valvular abnormalities - Decrease Lasix IV to 40 mg daily -Needs improved rate control-increased diltiazem - Monitor I&O's - net negative ~8.6 L so far - Daily standing weights - down 10 kg since admission - Will obtain overnight pulse oximetry study on room air tonight. Plan to obtain 2-step prior to discharge - PT/OT recommending home health #Atrial fibrillation with RVR - rates on admission elevated in 110s at rest - asymptomatic. Likely contributing to his acute HFpEF exacerbation. Getting established with cardiology outpatient - Remains in A fib but rates improved to 80s now - Continue Eliquis 5 mg BID, metoprolol 100 mg BID - Increased diltiazem to 360 mg daily on admission (previously on 240 mg daily) - TSH mildly elevated at 4.9, free T4 WNL - recommend repeat TSH in 4-6 weeks outpatient #Electrolyte depletion - in setting of aggressive diuresis - Potassium WNL on admission, now low at 3.2 following diuresis - will replete with KCl 40 mg p.o. TID x 1 day - Mag low on admission at 1.6, repleted with 1 g mag IV x 2. Mag augmented appropriately to 1.8 - will replete with additional 1 g IV for optimization with ongoing diuresis - Trend BMP, mag with AM labs #Focal area in RUL - in setting of recent MRSA and legionella pneumonia - Chest CT notes diffuse right hemithoracic airspace disease/pneumonia has been improving however there is residual disease in the right upper and middle lobes. Also notes small to moderate right pleural effusion has mildly increasedthis could represent a parapneumonic effusion. Difficult to exclude an underlying neoplastic/endobronchial lesion. Recommend follow-up thoracic CT in 4-6 weeks to reassess - Pulmonology consulted - suspect persistent mucous plugging as the patient required 2 therapeutic bronchoscopy procedures during his hospitalization 2 months ago. Added on Mucinex, nebulized Mucomyst, and flutter valve. Pleural effusion is likely associated with fluid overload, not suspected to be parapneumonic and not suspected to have acute pneumonia infectionno need for thoracentesis at this time - Follow-up appointment with pulm scheduled in December #Anemia - hgb at baseline on admission - B12 borderline low, folate, iron panel, ferritin all WNL - Start B12 supplementation #COPD with emphysema - Continue home inhalers #Hypertension continue diltiazem and metoprolol. Previously took losartan but this was discontinued secondary to hypotension #History of alcohol withdrawal delirium - occurred during last hospitalization. Drinks a couple oz of liquor nightly - Monitor for signs of alcohol withdrawal - Continue folic acid - Started thiamine and multivitamin daily VTE PPx: Eliquis Dispo: Admission to med/tele Repleted potassium and magnesium Decreased Lasix dosing frequency Discussed case with pulmonology Ordered overnight oximetry study Admission and Anticipated Discharge Date Admission Date: December 03, 2024 Supervising Physician Co-Signing Physician Notes PA Supervision Note: I did not personally see or examine the patient today, but I verified all escobar points of HUNG Calvo's assessment and plan with the following exceptions/additions: None Subjective Patient seen and evaluated at bedside. He reports a significant improvement in his LE swelling as well as his breathing. He has had about 8.5 L of output from diuresis already. He did not sleep much overnight secondary to frequent urination from diuresis and some SOB when lying flat. He notes the SOB seems resolved now and he has been able to nap when lying flat this morning. He worked with therapy earlier and was able to walk 90 feet x 2, which is a significant improvement compared to day of admission when he was only able to walk 10 steps. He had some tenderness and itching of his LE this morning. We discussed that this is normal from the aggressive diuresis. RN applied lotion on his LE earlier and this resolved his itchy sensation. We discussed the adjustments to his treatment plan today. No additional complaints or concerns at this time. Telemetry reviewed: A fib with occasional PVCs, rate in 80s. Review of Systems Review of Systems: All systems reviewed & are unremarkable except as noted in Subjective Physical Exam Physical Exam: General: No acute distress, nondiaphoretic, well-developed, well-nourished. Skin: Warm, dry. No rashes noted. Extremities: Significant improvement in LE edema - now 1+ to mid-santos bilaterally with skin wrinkling present in LE bilaterally. Mild erythema of distal LE bilaterally without signs of cellulitis. Cardiac: Irregularly irregular rhythm, regular rate in 80s. No murmurs, gallops, or rubs. Pulm: Diminished breath sounds throughout all lung urrutia. Normal respiratory effort. 90% on room air. Abdominal: Soft, nontender, nondistended. Bowel sounds present. Neuro: A&O x3. No focal neurological deficits. Results & Data Results & Data Vital Signs (Past 12 Hours) Vital Signs Temp Pulse Pulse Resp BP Pulse Ox O2 Del Method 12/04/24 07:22 98.2 F 101 H 18 113/71 90 Room Air 12/04/24 06:45 91 H 12/04/24 04:00 97.7 F 89 20 113/73 90 Room Air 12/03/24 23:32 98.1 F 110 H 20 110/76 93 Room Air Laboratory Results Reviewed CBC with differential Reviewed BMP, chemistries Reviewed iron panel, ferritin Reviewed UA Reviewed I&Os Diagnostic Findings Reviewed chest CT Reviewed echocardiogram PG Care Time/CCT Total # of Minutes Spent Total Time Spent with Patient: Total time spent is greater than 50% in coordination of care (as documented) at patient's floor/unit and/or counseling patient: Coding Level of Care Code 28906 SUB INP/OBS CARE 3/50MIN Diagnoses Heart failure with mildly reduced ejection fraction (HFmrEF) I50.20 Acute dyspnea R06.00 Bilateral leg edema R60.0 Atrial fibrillation I48.91 COPD (chronic obstructive pulmonary disease) with emphysema J43.9"
[2024-12-04] MEDS: POTASSIUM CHLORIDE CRTAB 20 MEQ TABCR PO SCH (10:07)
[2024-12-04] MEDS: MAGNESIUM SULFATE / D5W 1 GM/100 ML BAG IV ONE (10:07)
--- NOTE | 2024-12-04 10:57 | Pulmonary Consultation ---
Date of Consultation December 04, 2024 Assessment & Plan (1) Acute dyspnea: Highly likely associated with fluid-overload process/ HFpEF. Improving with diuresis. Consider testing for qualification for home-Oxygen prior to discharge: Overnight Oximetry on room-air and Oximetry during ambulation if patient not requiring Oxygen at rest. (2) Abnormal chest CT: Improved, albeit persistent, consolidation in the RUL and RML when compared to study from September 29/2025. The clinical picture is not that of active pneumonia. I suspect persistent mucus plugging, as the patient required 2 therapeutic- bronchoscopy procedures during hospitalization 2 months prior. Will add Guaifenesin, nebulized Mucomyst, and Flutter-Valve. Patient has appointment for follow-up with Pulmonary in December. (3) Pleural effusion, bilateral: Mildly increased right pleural effusion compared to study from September 2024. Most likely associated with fluid-overload. I do not think that this parapneumonic, and I don't think that the patient has pneumonia. No need for thoracentesis at this time. History of Present Illness Reason for Consultation: "Focal area RUL, recent MRSA/legionella PNA" Attending Physician: Nu Joyce MD History of Present Illness The patient is a very pleasant 64-year-old male who presented to the ED with complaints of progressive shortness of breath, significant bilateral lower extremity edema, and marked weight gain. Over the preceding five days, he reported a substantial increase in swelling of his legs and worsening dyspnea, such that he became winded after walking only ten steps and needed to stop to catch his breath. He noted a weight increase from 250 pounds at discharge from rehabilitation two weeks prior to 296 pounds on the day of presentation. He denied chest pain, palpitations, fever, or cough. He was not on a diuretic and has no formal diagnosis of CHF; an echocardiogram from September 2024 showed an EF of 50-55%. He was taking Eliquis for a history of A-fib. Imaging included a chest X-ray, which was suspicious for CHF, as well as persistence of an oval opacification of right-mid lung field. Chest CT showed improved, albeit persistent, consolidation in the RUL and RML when compared to study from September 29/2025. There is some increase in right pleural effusion. His past medical history included recent prolonged hospitalization and rehabilitation for respiratory failure due to MRSA and Legionella pneumonia, temporary dialysis for NAOMY/ATN secondary to septic shock, COPD with emphysema, atrial fibrillation, hypertension, alcohol withdrawal delirium, and anemia. The patient reports that he had been doing well since his Tracheostomy was ac cidentally removed. However, with the recent problems with peripheral swelling he has been having increasing problems with dyspnea. This has been improving with diuresis. He denies significant problems with cough or sputum production. Allergies Allergy/AdvReac Type Severity Reaction Status Date / Time hydrocodone Allergy Unknown hives Verified 12/03/24 17:02 Home Medications Medication Instructions Recorded Confirmed Type albuterol sulfate 2.5 mg/3 mL 2.5 mg (3 mL) inhalation QID PRN 06/10/22 12/03/24 Rx (0.083 %) solution for nebulization shortness of breath or wheezing #180 mL ipratropium bromide 0.02 % 2.5 ml inhalation QID PRN 06/28/22 12/03/24 Rx solution for inhalation shortness of breath or wheezing #150 mL albuterol sulfate 90 mcg/actuation 2 puff inhalation Q6H PRN 02/01/23 12/03/24 Rx aerosol inhaler shortness of breath or wheezing #18 grams fluticasone fur. 100 mcg-umeclid 1 inh inhalation DAILY #28 ea 01/24/24 12/03/24 Rx 62.5 mcg-vilant 25 mcg inhalat.powder (Trelegy Ellipta) folic acid 1 mg tablet 1 mg PO DAILY #30 tabs 10/17/24 12/03/24 Rx melatonin 3 mg tablet 3 mg PO HS PRN sleep #30 tabs 10/17/24 12/03/24 Rx apixaban 5 mg tablet (Eliquis) 5 mg PO BID #60 tabs 12/03/24 12/03/24 Rx diltiazem HCl 240 mg 240 mg PO DAILY #30 caps 12/03/24 12/03/24 Rx capsule,extended release 24 hr, controlled (DILT-XR) metoprolol tartrate 100 mg tablet 100 mg PO Q12H #60 tabs 12/03/24 12/03/24 Rx oxycodone 5 mg tablet 5 mg PO Q8H PRN Pain 12/03/24 12/03/24 History zolpidem 5 mg tablet 5 mg PO HS PRN Sleep 12/03/24 12/03/24 History Patient History Medical History Acute subdural hematoma Sciatica Surgical History S/P brain surgery S/P wisdom tooth extraction Family History Mother Breast cancer Myocardial infarction Ovarian cancer Father Hodgkin lymphoma Denies family history of Prostate cancer Colorectal cancer Social History Smoking Status: Former smoker Tobacco Type: Cigarettes Age Started Using Tobacco: 17; Age Quit Using Tobacco: 52; packs per day: 1; Second Hand Exposure: No; Do You Dip or Chew Tobacco: No; Hx Alcohol Use: Yes Alcohol type: beer Hx Substance Use: Yes Prescribed Medications: Marijuana Last Used Substance: Unknown Substance Use Type Other:: medical marniharika certified Preferred Language: Kazakh Communication Ability: Effective Visual Impairment: No Limitations Hearing Ability: Normal Etcher Apprentice Required: No Beliefs That Will Affect Care: None marital status: Current Living Situation: Spouse and Family Current Living Situation Comment: and grandson current occupational status: unemployed How many Children do You have: 1 Feels Safe at Home: Yes Childhood Exposure to Second-Hand Smoke: Yes Diet: regular Diet Comment: Regular caffeine: Yes during the past year weight has: remained stable Dental Care, Regularly: No Physical Activity Frequency: 3-4 Times per Week Seatbelt Use: sometimes Sunscreen Use: No Assistive Devices: Bedside Commode, Nebulizer, Walker and Wheelchair Review of Systems Review of Systems: All systems reviewed & are unremarkable except as noted in HPI & below Physical Exam Physical Exam: Vitals and labs reviewed. General: In no acute distress, using Oxygenvia nasal cannula. Skin: Warm and dry to touch. Noobvious lesions. Eyes: Anicteric.Noconjunctivitis.No periorbital edema. ENT: No oral thrush. No oropharyngeal erythema or exudates. Mallampati 3. Neck: No palpable masses or adenopathy. Tiny scar of previous Tracheostomy. Respiratory: Diffusely decreased breath sounds, especially over the right base; no wheezing or crackles. No use of accessory muscles and no prolonged exhalation. Cardiac: Distant sounds, regular rhythm, no murmurs, no gallops, no rubs; could not appreciate JV pulse elevation. GI: Soft, nontender, normal bowel sounds, couldnot appreciateorganomegaly. Extremities No clubbing,no cyanosis,2+ edema. Neuro: No gross motor deficits. Seems appropriate. Results & Data Results & Data Vital Signs (Past 12 Hours) Vital Signs Temp Pulse Pulse Resp BP Pulse Ox O2 Del Method 12/04/24 08:10 Room Air 12/04/24 07:22 36.8 C 101 H 18 113/71 90 Room Air 12/04/24 06:45 91 H 12/04/24 04:00 36.5 C 89 20 113/73 90 Room Air 12/03/24 23:32 36.7 C 110 H 20 110/76 93 Room Air Laboratory Results 12/04/24 12/03/24 05:44 Unknown WBC 6.89 6.01 RBC 3.57 L 3.65 L Hgb 11.4 L 11.1 L Hct 34.9 L 35.8 L MCV 97.8 98.1 MCH 31.9 30.4 MCHC 32.7 31.0 L RDW Std Deviation 58.3 H 60.7 H RDW Coeff of [place] 16.3 H 16.9 H Plt Count 240 251 MPV 9.7 9.5 Immature Gran % (Auto) 0.7 0.5 Neut % (Auto) 65.2 59.2 Lymph % (Auto) 14.5 19.5 Norman % (Auto) 9.9 9.8 Eos % (Auto) 9.0 10.0 Baso % (Auto) 0.7 1.0 Neut # (Auto) 4.49 3.56 Lymph # (Auto) 1.00 L 1.17 L Norman # (Auto) 0.68 H 0.59 Eos # (Auto) 0.62 H 0.60 H Baso # (Auto) 0.05 0.06 Immature Gran # (Auto) 0.05 0.03 Sodium 139 140 Potassium 3.2 L 3.8 Chloride 99 105 Carbon Dioxide 31 28 Anion Gap 9 7 BUN 8 6 Creatinine 0.67 0.66 Est Cr Clr Drug Dosing 149.5 157.2 eGFR 104.91 105.39 BUN/Creatinine Ratio 11.9 9.1 L Glucose 92 91 Calcium 8.9 9.0 Magnesium 1.8 1.6 L Iron 104 TIBC 330 Transferrin 236 Transferrin % Sat 32 Ferritin 126.6 Total Bilirubin 0.7 AST 22 ALT 12 Alkaline Phosphatase 99 Troponin I High Sens 4.2 B-Natriuretic Peptide 235 H Total Protein 6.8 Albumin 3.6 Globulin 3.2 Albumin/Globulin Ratio 1.1 Vitamin B12 291 Folate > 22.30 TSH 4.902 H Free T4 0.96 Urine Color Yellow Urine Appearance Clear Urine pH 8.0 H Ur Specific [place] 1.005 Urine Protein Negative Urine Glucose (UA) Negative Urine Ketones Negative Urine Blood Negative Urine Nitrite Negative Urine Bilirubin Negative Urine Urobilinogen Negative Ur Leukocyte Esterase Negative Urine Comment Diagnostic Findings Chest X-Ray 12/03/24 15:39 Chest radiograph, one view A focal area of opacity is seen at the right upper lobe, abutting the fissure, where there is an area of opacity that was seen on 09/29/2024, and may represent residual infection, atelectasis, or possibly an area of loculated fluid within the fissure. There is also a small right basilar pleural effusion. Mild streaky right basilar opacity, favors atelectasis. No gross pulmonary edema. No pneumothorax. The cardiomediastinal silhouette is within normal limits. Electronically signed by Dominic Acevedo 12-03-2024 5:[address] 12/03/24 19:06 CT CHEST WITHOUT CONTRAST: IMPRESSION: Since the previous thoracic CT dated October 06, 2024, diffuse right hemithoracic airspace disease/pneumonia has been improving however there is residual disease in the right upper and middle lobes. (Recurrent disease not excluded based on clinical context) Small to moderate right pleural fluid has mildly increased. This could represent a parapneumonic effusion. Difficult to exclude an underlying neoplastic/endobronchial lesion given the current pleural-parenchymal process. Recommended continued imaging and clinical follow-up to ensure an uneventful resolution. A follow-up thoracic CT in 4-6 weeks may be considered to reassess Electronically signed by Giuliano Cobian 12-03-2024 8:02 PM Medications Administered Home Medications Medication Instructions Recorded Confirmed Last Taken albuterol sulfate 2.5 mg/3 mL 2.5 mg (3 mL) inhalation QID PRN 06/10/22 12/03/24 Unknown (0.083 %) solution for nebulization shortness of breath or wheezing #180 mL ipratropium bromide 0.02 % 2.5 ml inhalation QID PRN 06/28/22 12/03/24 Unknown solution for inhalation shortness of breath or wheezing #150 mL albuterol sulfate 90 mcg/actuation 2 puff inhalation Q6H PRN 02/01/23 12/03/24 Unknown aerosol inhaler shortness of breath or wheezing #18 grams fluticasone fur. 100 mcg-umeclid 1 inh inhalation DAILY #28 ea 01/24/24 12/03/24 12/03/24 62.5 mcg-vilant 25 mcg inhalat.powder (Trelegy Ellipta) folic acid 1 mg tablet 1 mg PO DAILY #30 tabs 10/17/24 12/03/24 12/03/24 melatonin 3 mg tablet 3 mg PO HS PRN sleep #30 tabs 10/17/24 12/03/24 Unknown apixaban 5 mg tablet (Eliquis) 5 mg PO BID #60 tabs 12/03/24 12/03/24 12/03/24 diltiazem HCl 240 mg 240 mg PO DAILY #30 caps 12/03/24 12/03/24 12/03/24 capsule,extended release 24 hr, controlled (DILT-XR) metoprolol tartrate 100 mg tablet 100 mg PO Q12H #60 tabs 12/03/24 12/03/24 12/03/24 oxycodone 5 mg tablet 5 mg PO Q8H PRN Pain 12/03/24 12/03/24 Unknown zolpidem 5 mg tablet 5 mg PO HS PRN Sleep 12/03/24 12/03/24 Unknown Active Medications Generic Name Dose Route Start Last Admin Trade Name Freq PRN Reason Stop Dose Admin Apixaban 5 mg 12/03/24 21:57 12/04/24 08:10 Apixaban 5 Mg Tablet PO 01/02/25 21:56 5 mg BID ANA Administration Diltiazem HCl 360 mg 12/04/24 09:00 12/04/24 08:10 Diltiazem Hcl 180 Mg Capcr PO 01/03/25 08:59 360 mg DAILY ANA Administration Fluticasone Furoate 1 puffs 12/04/24 09:00 12/04/24 08:10 Fluticasone Furoate 100mcg 14 Puffs/Inhaler INH 01/03/25 08:59 1 puffs DAILY ANA Administration Folic Acid 1 mg 12/04/24 09:00 12/04/24 08:10 Folic Acid 1 Mg Tab PO 01/03/25 08:59 1 mg DAILY ANA Administration Magnesium Sulfate/Dextrose 1 gm in 100 mls @ 50 mls/hr 12/04/24 09:57 12/04/24 10:07 Magnesium Sulfate / D5w IV 12/04/24 11:56 50 mls/hr ONE ONE Administration Metoprolol Tartrate 100 mg 12/03/24 21:57 12/04/24 08:10 Metoprolol Tartrate 100 Mg Tab PO 01/02/25 21:56 100 mg Q12 ANA Administration Multivitamins 1 tab 12/04/24 09:00 12/04/24 08:10 Multivitamin Tab PO 01/03/25 08:59 1 tab QAM ANA Administration Potassium Chloride 40 meq 12/04/24 10:00 12/04/24 10:07 Potassium Chloride Crtab 20 Meq Tabcr PO 12/04/24 21:01 40 meq TID ANA Administration Thiamine HCl 100 mg 12/04/24 09:00 12/04/24 08:10 Thiamine Hcl 100 Mg Tab PO 01/03/25 08:59 100 mg QAM ANA Administration Umeclidinium/Vilanterol 1 puffs 12/04/24 09:00 12/04/24 08:10 Umeclidinium/Vilanterol 62.5/25mcg 7 Puffs/Inhaler INH 01/03/25 08:59 1 puffs DAILY ANA Administration PG Care Time/CCT Total # of Minutes Spent Total Time Spent with Patient: Total time spent is greater than 50% in coordination of care (as documented) at patient's floor/unit and/or counseling patient: 65 minutes Coding Level of Care Code 85986 IN/OBS CONSULT LVL 4,60M Diagnoses Acute dyspnea R06.[address] R93.89 Pleural effusion, bilateral J90 Time Spent (min) 65 Comment Review chart/ imaging studies, history/ physical, update patient, family, nurse, provider.
[2024-12-04] MEDS: ALBUTEROL 0.083% NEBU SOLN 3 ML VIAL INH PRN (14:03)
[2024-12-04] MEDS: ACETYLCYSTEINE 20% INHAL SOLN 4ML ***DISPENSED BY RESP. INH SCH ×2 (14:20→19:55)
--- NOTE | 2024-12-04 14:24 | XCELERA ---
[id number]
[2024-12-04] MEDS: CYANOCOBALAMIN 1000 MCG/ML VIAL IM ONE (18:40)
[2024-12-04] MEDS: FUROSEMIDE 40 MG/4 ML VIAL IV ONE (19:30)
[2024-12-04] MEDS ORDERED: FUROSEMIDE 40 MG/4 ML VIAL IV SCH (20:00)
[2024-12-04] MEDS: guaiFENesin 600 MG TABCR PO SCH (21:24)
--- NOTE | 2024-12-04 23:40 | XRay Report ---
Exam(s): XR CXR 1 VIEW EXAM: XR Chest, 1 View CLINICAL HISTORY: sob. TECHNIQUE: Frontal view of the chest. COMPARISON: Portable chest 10/16/2024 FINDINGS: Lungs: Similar somewhat ovoid to crescentic opacity in the right mid lung zone, similar to the previous examination. There is improvement at the right lung base with some residual right infrahilar changes noted. The left lung is well-aerated. Mild equalization of the pulmonary vasculature is suggested but is less prominent from the previous examination. Pleural space: Unremarkable. No pneumothorax. No large pleural effusion. Heart: The cardiac silhouette is stable. Mediastinum: The mediastinal contours are stable. No tracheal deviation. Bones/joints: Unremarkable. No acute fracture. IMPRESSION: Similar somewhat ovoid to crescentic opacity in the right mid lung zone, similar to the previous examination. Suspect pseudotumor fluid in the minor fissure. There is improvement at the right lung base with some residual right infrahilar changes noted. Electronically signed by: Bryan Almodovar MD 12/04/24 23:40 PM
--- NOTE | 2024-12-05 05:57 | Electrocardiogram Report ---
Test Reason : Blood Pressure : */* mmHG Vent. Rate : 111 BPM Atrial Rate : * BPM P-R Int : * ms QRS Dur : 80 ms QT Int : 328 ms P-R-T Axes : * 70 43 degrees QTcB Int : 446 ms Atrial fibrillation with rapid ventricular response Low voltage QRS Abnormal ECG When compared with ECG of 08-Oct-2024 13:32, No significant change Confirmed by Jose Antonio Marquez ([id number]) on 12/05/2024 5:56:37 AM Referred By: REFERRED SELF Confirmed By: Jose Antonio Marquez
[2024-12-05 06:15] LABS: Hematocrit (blood only) 36.2 % (42.0-52.0); Hemoglobin 11.4 g/dl (14.0-18.0); Mean Corpuscular Hemoglobin 30.6 pg (25.0-34.0); Mean Corpuscular Volume 97.3 fL (80.0-100.0); Platelet Count 224 K/uL (130-400); RDW Standard Deviation 58.7 fL (36.4-46.3); Red Blood Count 3.72 M/uL (4.70-6.10); White Blood Count 7.86 K/ul (4.8-10.8)
[2024-12-05 06:39] LABS: Anion Gap 10.0 (3-11); Blood Urea Nitrogen 11.0 mg/dl (6-23); Calcium 9.1 mg/dl (8.6-10.3); Carbon Dioxide 27.0 mmol/L (21-32); Chloride 102.0 mmol/L (98-107); Creatinine Clr Calc Pharmacy 129.9 ml/min; Glucose 98.0 mg/dl (70-99(Fasting)); Magnesium 1.6 mg/dl (1.7-2.4); Potassium 3.5 mmol/L (3.5-5.1); Sodium 139.0 mmol/L (136-145)
[2024-12-05] MEDS: CYANOCOBALAMIN (B-12) 500 MCG TABLET PO SCH (10:07)
[2024-12-05] MEDS: FUROSEMIDE 40 MG/4 ML VIAL IV SCH (10:10)
[2024-12-05] MEDS: POTASSIUM CHLORIDE CRTAB 20 MEQ TABCR PO SCH (10:35)
[2024-12-05] MEDS: MAGNESIUM SULFATE / D5W 1 GM/100 ML BAG IV SCH (10:36)
--- NOTE | 2024-12-05 11:46 | Hospitalist Progress Note ---
"Date of Service December 05, 2024 Assessment & Plan (1) Heart failure with mildly reduced ejection fraction (HFmrEF): (2) Acute dyspnea: (3) Bilateral leg edema: (4) Atrial fibrillation: (5) COPD (chronic obstructive pulmonary disease) with emphysema: Plan Jamie is a pleasant 64-year-old man with past medical history of recent prolonged hospitalization/rehab stay secondary to respiratory failure and MRSA and Legionella pneumonia, temporary dialysis due to NAOMY/ATN secondary to septic shock, COPD with emphysema, atrial fibrillation, hypertension, alcohol withdrawal delirium, anemia. Presented with 5 days of increasing lower extremity swelling and progressive shortness of breath. He has had approximately 46 pound weight gain since his discharge from [facility] approximately 2 weeks ago. He is no longer able to walk more than 10 steps without stopping to catch his breath. He was admitted for aggressive diuresis and management of his A fib with RVR. #Acute on chronic HFmrEF | Acute dyspnea | LE edema - significant response to diuresis with much improvement in LE edema and breathing status - Venous Doppler studies negative for DVT bilaterally - Repeat echocardiogram notes mildly dilated left ventricle with mildly reduced systolic function, EF 45-50%. No regional wall motion abnormalities. Mild global hypokinesis. No LVH. Right ventricle not well-visualized but appears dilated. No significant valvular abnormalities - Continue Lasix IV to 40 mg daily. Likely will discharge on Lasix 80 mg p.o. daily and KCl 20 mg p.o. BID - Needs improved rate control - increased diltiazem - Monitor I&O's - net negative ~13 L so far - Daily standing weights - down 11 kg since admission - Overnight pulse oximetry study on room air qualifies for nighttime O2 with 41 minutes of desaturation. Will start 2 L O2 via NM HS 12/05. Recommend sleep medicine referral for formal outpatient sleep study - Plan to obtain 2-step prior to discharge - PT/OT recommending home health - patient prefers to go to outpatient therapy clinic - Follow-up with CHF clinic - referral made #Atrial fibrillation with RVR - rates on admission elevated in 110s at rest - asymptomatic. Likely contributing to his acute HFpEF exacerbation. Getting established with cardiology outpatient - Remains in A fib but and rates initially improved to 80s after increase of diltiazem, but now are increasing to 90-120s - Continue Eliquis 5 mg BID - Will increase metoprolol to 150 mg QAM and 100 mg QPM (previously on 100 mg BID) - Increased diltiazem to 360 mg daily on admission (previously on 240 mg daily) - TSH mildly elevated at 4.9, free T4 WNL - recommend repeat TSH in 4-6 weeks outpatient #Electrolyte depletion - in setting of aggressive diuresis - Mild hypokalemia in setting of aggressive diuresis - will replete with KCl 40 mg TID x 1 day - Mild hypomagnesemia - will replete with 1 g mag IV x 2 - Trend BMP, mag with AM labs #Opacity in RML and RUL - in setting of recent MRSA and legionella pneumonia - Chest CT notes diffuse right hemithoracic airspace disease/pneumonia has been improving however there is residual disease in the right upper and middle lobes. Also notes small to moderate right pleural effusion has mildly increasedthis could represent a parapneumonic effusion. Difficult to exclude an underlying neoplastic/endobronchial lesion. Recommend follow-up thoracic CT in 4-6 weeks to reassess - Pulmonology consulted - suspect persistent mucous plugging as the patient required 2 therapeutic bronchoscopy procedures during his hospitalization 2 months ago. Added on Mucinex, nebulized Mucomyst, and flutter valve. Pleural effusion is likely associated with fluid overload, not suspected to be parapneumonic and not suspected to have acute pneumonia infectionno need for thoracentesis at this time - Follow-up appointment with pulm scheduled in December #Anemia - hgb at baseline on admission - B12 borderline low, folate, iron panel, ferritin all WNL - Started B12 supplementation #COPD with emphysema - Continue home inhalers #Hypertension continue diltiazem and metoprolol. Previously took losartan but this was discontinued secondary to hypotension #History of alcohol withdrawal delirium - occurred during last hospitalization. Drinks a couple oz of liquor nightly - Monitor for signs of alcohol withdrawal - Continue folic acid - Started thiamine and multivitamin daily VTE PPx: Eliquis Dispo: Anticipate discharge home tomorrow 12/06 Repleted potassium PO and magnesium IV Started nighttime O2 Increased metoprolol Admission and Anticipated Discharge Date Admission Date: December 03, 2024 Supervising Physician Co-Signing Physician Notes HUNG Supervision Note: I did not personally see or examine the patient today, but I verified all escobar points of HUNG Calvo's assessment and plan with the following exceptions/additions: None Subjective Patient seen and evaluated at bedside. He reports an improvement in both his LE edema and his dyspnea. He reports the lotion on his LE helps with the itching sensation. His LE remain somewhat tender. He denies heart palpitations or chest pain. He states that he is re-establishing with cardiology outpatient and has an appointment scheduled in December. We discussed his current treatment regimen and the regimen he will likely be discharged on. No additional complaints or concerns at this time. Physical Exam Physical Exam: General: No acute distress, nondiaphoretic, well-developed, well-nourished. Skin: Warm, dry. No rashes noted. Extremities: Significant improvement in LE edema - now nonpitting pedal edema with skin wrinkling present in LE bilaterally. Mild erythema of distal LE bilaterally without signs of cellulitis. Cardiac: Irregularly irregular rhythm, mildly tachycardic rate in 100s. No murmurs, gallops, or rubs. Pulm: Clear to auscultation bilaterally without wheezes, rales or rhonchi. Normal respiratory effort. 97% on room air. Neuro: A&O x3. No focal neurological deficits. Results & Data Results & Data Vital Signs (Past 12 Hours) Vital Signs Temp Pulse Pulse Resp BP Pulse Ox Pulse Ox 12/05/24 08:12 97.7 F 80 16 116/80 97 12/05/24 07:21 100 H 18 93 12/05/24 04:47 101 H 92 12/05/24 03:50 97.9 F 97 H 20 110/77 91 12/05/24 02:30 103 H 97 12/05/24 01:17 81 96 O2 Del Method O2 Del Method 12/05/24 08:12 Room Air 12/05/24 07:21 Room Air 12/05/24 04:47 Room Air 12/05/24 03:50 Room Air 12/05/24 02:30 Room Air 12/05/24 01:17 Room Air Laboratory Results Reviewed CBC Reviewed BMP, mag PG Care Time/CCT Total # of Minutes Spent Total Time Spent with Patient: Total time spent is greater than 50% in coordination of care (as documented) at patient's floor/unit and/or counseling patient: Coding Level of Care Code 55526 SUB INP/OBS CARE 3/50MIN Diagnoses Heart failure with mildly reduced ejection fraction (HFmrEF) I50.20 Acute dyspnea R06.00 Bilateral leg edema R60.0 Atrial fibrillation I48.91 COPD (chronic obstructive pulmonary disease) with emphysema J43.9"
[2024-12-05] MEDS: METOPROLOL TARTRATE 50 MG TAB PO STA (17:37)
[2024-12-05] MEDS: METOPROLOL TARTRATE 100 MG TAB PO SCH (20:56)
[2024-12-05] MEDS: MELATONIN 3 MG TAB PO PRN (22:04)
[2024-12-06 03:32] VITALS: RESP 18; TEMP 97.9
[2024-12-06 07:04] LABS: Anion Gap 8.0 (3-11); Blood Urea Nitrogen 10.0 mg/dl (6-23); Calcium 9.0 mg/dl (8.6-10.3); Carbon Dioxide 26.0 mmol/L (21-32); Chloride 105.0 mmol/L (98-107); Creatinine Clr Calc Pharmacy 133.9 ml/min; Glucose 92.0 mg/dl (70-99(Fasting)); Magnesium 1.8 mg/dl (1.7-2.4); Potassium 3.9 mmol/L (3.5-5.1); Sodium 139.0 mmol/L (136-145)
[2024-12-06 07:45] VITALS: BP 132/85; O2SAT 95
[2024-12-06] MEDS: FUROSEMIDE 80 MG TAB PO SCH (10:09)
[2024-12-06] MEDS: METOPROLOL TARTRATE 50 MG TAB PO SCH (10:12)
[2024-12-06 11:46] VITALS: PULSE 108
--- NOTE | 2024-12-06 12:09 | Discharge Summary ---
"Discharge Summary Date of Service December 06, 2024 Principal Dx & Hospital Course #1 = Principal Diagnosis (1) Heart failure with mildly reduced ejection fraction (HFmrEF): (2) Acute dyspnea: (3) Bilateral leg edema: (4) Atrial fibrillation: (5) COPD (chronic obstructive pulmonary disease) with emphysema: Chalino Ayala is a pleasant 64-year-old man with past medical history of recent prolonged hospitalization/rehab stay secondary to respiratory failure and MRSA and Legionella pneumonia, temporary dialysis due to NAOMY/ATN secondary to septic shock, COPD with emphysema, atrial fibrillation, hypertension, alcohol withdrawal delirium, anemia. Presented with 5 days of increasing lower extremity swelling and progressive shortness of breath. He has had approximately 46 pound weight gain since his discharge from [facility] proximately 2 weeks ago. He is no longer able to walk more than 10 steps without stopping to catch his breath. He was admitted for aggressive diuresis and management of his A fib with RVR. #Acute on chronic HFmrEF | Acute dyspnea | LE edema - significant response to diuresis with much improvement in LE edema and breathing status - Venous Doppler studies negative for DVT bilaterally - Repeat echocardiogram notes mildly dilated left ventricle with mildly reduced systolic function, EF 45-50%. No regional wall motion abnormalities. Mild global hypokinesis. No LVH. Right ventricle not well-visualized but appears dilated. No significant valvular abnormalities - Treated with IV Lasix while hospitalized. Discharged on Lasix 80 mg p.o. once daily with KCl 20 mEq p.o. twice daily - Net negative ~14.5 L throughout admission - Weight down 14 kg since admission - Overnight pulse oximetry study on room air qualifies for nighttime O2 with 41 minutes of desaturation. Will start 2 L O2 via NC HS - coordinated with CM to have O2 delivered at home. Recommend sleep medicine referral for formal outpatient sleep study. 2-step completed and no O2 needed at rest or with activity during day time - Follow-up with CHF clinic - referral made #Atrial fibrillation with RVR - rates on admission elevated in 110s at rest - asymptomatic. Likely contributing to his acute HFpEF exacerbation. Getting established with cardiology outpatient - Remains in A fib, required dose adjustments to get better rate control - Continue Eliquis 5 mg BID - Increased metoprolol to 150 mg QAM and 100 mg QPM (previously on 100 mg BID) - Increased diltiazem to 360 mg daily on admission (previously on 240 mg daily) - TSH mildly elevated at 4.9, free T4 WNL - recommend repeat TSH in 4-6 weeks outpatient - Follow-up with cardiology as scheduled outpatient #Electrolyte depletion - in setting of aggressive diuresis - Mild hypokalemia and hypomagnesemia repleted with p.o. and IV supplementation. Electrolytes now WNL - Started KCl 20 mEq p.o. twice daily on discharge with ongoing diuretic use #Opacity in RML and RUL - in setting of recent MRSA and legionella pneumonia - Chest CT notes diffuse right hemithoracic airspace disease/pneumonia has been improving however there is residual disease in the right upper and middle lobes. Also notes small to moderate right pleural effusion has mildly increasedthis could represent a parapneumonic effusion. Difficult to exclude an underlying neoplastic/endobronchial lesion. Recommend follow-up thoracic CT in 4-6 weeks to reassess - Pulmonology consulted - suspect persistent mucous plugging as the patient required 2 therapeutic bronchoscopy procedures during his hospitalization 2 months ago. Added on Mucinex, nebulized Mucomyst, and flutter valve. Pleural effusion is likely associated with fluid overload, not suspected to be parapneumonic and not suspected to have acute pneumonia infectionno need for thoracentesis at this time - Follow-up appointment with pulm scheduled in December #Anemia - hgb at baseline on admission - B12 borderline low, folate, iron panel, ferritin all WNL - Started/continued on B12 supplementation #COPD with emphysema - Continue home inhalers #Hypertension continue diltiazem and metoprolol. Previously took losartan but this was discontinued secondary to hypotension #History of alcohol withdrawal delirium - occurred during last hospitalization. Drinks a couple oz of liquor nightly - No signs of alcohol withdrawal during admission - Continue folic acid. Given thiamine and multivitamin daily while admitted VTE PPx: Robyn Dispo: Discharged home 12/06. PT/OT recommending home health - patient prefers to go to outpatient therapy clinic - script provided on discharge. Notes For Next Care Provider Monitor heart rate given A-fib with RVR during admission and adjustments made to his medication regimen for better rate control. Recommend sleep medicine referral for formal sleep study outpatient. Patient qualified for nighttime oxygen with overnight oximetry study done during his hospitalization. Case management coordinated his O2 at home for bedtime. Recommend repeating TSH in 4-6 weeks outpatient. Follow-up with cardiology as scheduled outpatient or sooner if needed. Follow-up with pulmonology as scheduled outpatient or sooner if needed. Referral made to CHF clinic. Patient reported his PCP was going to refill his oxycodone prescription, but since he was recommended to come to the hospital, he deferred refilling it at that time. Patient requested his oxycodone prescription be refilled on discharge. Informed patient I could send in 10 pills of oxycodone 5 mg for him but anything further would need to go through his PCP. Medication Changes From Visit Started Lasix 80 mg daily Started KCl 20 mEq twice daily Increased metoprolol to 150 mg QAM, remains on 100 mg HS Increased diltiazem to 360 mg daily Started vitamin B12 supplementation daily Given prescription for 10 tablets of oxycodone 5 mg every 8 hours as needed - home medication Admission HPI Per Admitting Provider Jamie is a pleasant 64-year-old man with past medical history of recent prolonged hospitalization/rehab stay secondary to respiratory failure and MRSA and Legionella pneumonia, temporary dialysis due to NAOMY/ATN secondary to septic shock, COPD with emphysema, atrial fibrillation, hypertension, alcohol withdrawal delirium, anemia. He presented from home at the recommendation of his PCP with increased lower extremity swelling and shortness of breath x 5 days. At the time of my exam, the patient was lying in bed in no acute distress. He states for the past 5 days he has noticed significant increase in his lower extremity swelling and progressive shortness of breath. He reports he has been deconditioned from his recent prolonged hospital/rehab stay, but was previously doing better than he has been for the past few days. Now, when he takes more than 10 steps, he gets extremely winded and has to sit down to catch his breath. He also reports he weighed 250 pounds on discharge from [facility] 2 weeks ago and his weight is up to 296 pounds in the ED on presentation. He does not take diuretics at baseline as he has no formal CHF diagnosis. He did have an echocardiogram done in September 2024 which noted an EF of 50-55% at that time. He had 1 dose of IV Lasix 80 mg in the ED and reports an improvement in his dyspnea at rest already. He denies any heart palpitations or chest pain at this time. Vitals on admission significant for elevated BP at 140/101, tachycardia with HR 116; vitals otherwise stable. Labs on admission are significant for elevated BNP at 235 and baseline normocytic anemia. No leukocytosis. Electrolytes WNL. Renal function WNL. Liver enzymes WNL. Troponin negative at 4.2. UA negative. Outpatient CXR from today notes CHF with small right pleural effusion and interval overall finding at the right midlung with differential diagnosis including fluid in the fissure, focal pneumonia, and mass. CXR in ED on presentation notes small right basilar pleural effusion, mild streaky right basilar opacity favoring atelectasis, no gross pulmonary edema or pneumothorax, and a focal area of opacity seen at the right upper lobe abutting the fissure that may represent residual infection, atelectasis, or possibly an area of loculated fluid within the fissure. We discussed code status, patient wishes to be a full code. Discharge Exam General: No acute distress, nondiaphoretic, well-developed, well-nourished. Skin: Warm, dry. No rashes noted. Extremities: Significant improvement in LE edema - now nonpitting pedal edema with skin wrinkling present in LE bilaterally. Mild erythema of distal LE bilaterally without signs of cellulitis. Cardiac: Irregularly irregular rhythm, mildly tachycardic rate in 90-100s. No murmurs, gallops, or rubs. Pulm: Clear to auscultation bilaterally without wheezes, rales or rhonchi. Normal respiratory effort. 95% on room air. Neuro: A&O x3. No focal neurological deficits. Discharge Plan Discharge Items Patient Disposition: Home - Self-Care Reason For Visit: LE SWELLING, DYSPNEA Discharge Diagnosis: Heart failure with mildly reduced ejection fraction Condition on Discharge: Fair Activity: Resume your previous activity Non-emergency contact: Primary Care Provider Call non-emergency contact if: you have any medication questions and your symptoms worsen Follow-up/Referrals: Bryan Cali CRNP [Primary Care Provider] - 12/18/24 10:15 am Diet: Low Sodium (2gm) Fluids: 1800ml (7 cups) Addtl Attending Provider Instructions: Jamie, You were admitted to the hospital with significant lower extremity edema and shortness of breath. Your echocardiogram (ultrasound of your heart) showed a mildly reduced systolic function with an ejection fraction of 45-50%. You are net negative approximately 14.5 L and down about 30 pounds from your diuresis during this admission. Additionally, you were found to be in atrial fibrillation with a rapid ventricular response (A-fib with RVR). This likely contributed to your heart failure exacerbation as well. Some of your medications have been increased to have better control of your heart rate. Additionally, you had an overnight sleep study that qualifies you for nighttime oxygen. Your oxygen for at home has been coordinated by your casework supervisor. Upon discharge from the hospital: * Take Lasix (diuretic) 80 mg daily. * Take potassium chloride supplement 20 mg twice daily. This is important to keep your potassium level within her normal range while taking diuretics. * Follow a low-sodium diet (less than 2 g of sodium daily) and try to restrict her fluid intake to 1800 mL daily. I have attached some handouts to your discharge packet further explaining heart failure and dietary changes. * Your diltiazem was increased to 360 mg dailycontinue this dose. * Your metoprolol was increased to 150 mg in the morning and 100 mg at bedtimecontinue this dose. * You were started on vitamin B12 supplementationcontinue this once daily. * Follow-up with cardiology and pulmonology outpatient as already scheduled. * Follow-up with your PCP as already scheduled. * A referral has been made for you to follow-up with the heart failure clinic outpatient. * Please follow the additional instructions for heart failure management listed below. Call 911 and go to the Emergency Room if: * You have tightness or pain in your chest that does not go away with rest or Nitroglycerin * You are very short of breath even with rest Call your doctor if any of the following symptoms or problems start or get worse: * Shortness of breath or difficulty breathing * Wake up at night short of breath * Chest pain * Cough * Swelling of your hands, fee, or legs * More fatigued or tired with your normal activity * Palpitations - sudden fast heart beats WEIGHT * Weigh yourself every morning after using the bathroom. * Use the same scale. * Wear the same amount of clothing. * Write your weight down on your chart. * Call your doctor if you gain more than 2-3 pounds in 1-2 days. MEDICATIONS * Use this discharge instruction sheet for instructions. * Take your medications at the time your doctor ordered. * Do not skip a dose of your medicines. * If you miss a dose of medicine, take as soon as possible, but DO NOT DOUBLE A DOSE. * Read your medicine information when you get home. * Know all of the side effects of your medicine. * Call your doctor's office if you have any side effects. * Be sure all of your doctors know what medicine and herbs you take (including cold, flu, and herbal medicine). * Pain Medicine: If you do not get relief from your pain, please call your doctor for help. Take the following with you to your follow-up doctor appointments: * Weight Chart * Medication List * List of questions Do not drink excessive alcohol, beer or wine. Pending Studies at Discharge: No Stand-Alone Forms: [facility], Sm[facility] Cess[facility] Medications and DC Order Prescriptions: New diltiazem HCl 180 mg Capsule,Extended Release 24hr 360 mg PO DAILY Qty: 60 0RF metoprolol tartrate 100 mg Tablet 100 mg PO HS Qty: 30 0RF furosemide 80 mg Tablet 80 mg PO QAM Qty: 30 0RF metoprolol tartrate 50 mg Tablet 150 mg PO QAM Qty: 30 0RF cyanocobalamin (vitamin B-12) 500 mcg Tablet 1,000 mcg PO QAM Qty: 30 0RF potassium chloride 20 mEq tablet extended release 20 meq PO BID Qty: 60 0RF oxycodone 5 mg tablet 5 mg PO Q8H PRN (Reason: pain) Qty: 10 0RF Continued albuterol sulfate 2.5 mg /3 mL (0.083 %) solution for nebulization 2.5 mg inhalation QID PRN (Reason: shortness of breath or wheezing) Qty: 180 3RF Patient Comments: 09/29- no fill history unable to verify ipratropium bromide 0.02 % solution 2.5 ml inhalation QID PRN (Reason: shortness of breath or wheezing) Qty: 150 3RF Patient Comments: 09/29- no fill history unable to verify albuterol sulfate 90 mcg/actuation HFA aerosol inhaler 2 puff inhalation Q6H PRN (Reason: shortness of breath or wheezing) Qty: 18 3RF Patient Comments: 09/29- no fill history unable to verify Trelegy Ellipta 100-62.5-25 mcg blister with device 1 inh inhalation DAILY Qty: 28 0RF zolpidem 5 mg tablet 5 mg PO HS PRN (Reason: Sleep) Eliquis 5 mg tablet 5 mg PO BID Qty: 60 5RF oxycodone 5 mg Tablet 5 mg PO Q8H PRN (Reason: Pain) melatonin 3 mg Tablet 3 mg PO HS PRN (Reason: sleep) Qty: 30 0RF folic acid 1 mg Tablet 1 mg PO DAILY Qty: 30 0RF Discontinued diltiazem HCl [DILT-XR] 240 mg capsule,ext.rel 24h degradable 240 mg PO DAILY Qty: 30 0RF metoprolol tartrate 100 mg tablet 100 mg PO Q12H Qty: 60 4RF Discharge Orders: Discharge Order- CHF (Routine); Ordered 12/06/24 Ordered By: Ivis Uribe/Other Patient Handouts: Heart Failure: Tracking Your Weight, Heart Failure Make Changes Diet, Heart Failure Dc, Low Salt Diet Dc Admission Data Admit Date/Time: 12/03/24 18:29 Attending Provider: Nu Joyce Admit Provider: Nu Joyce Primary Care Provider: Bryan Cali Other Providers: Nu Joyce; Cezar Xie; Chula Roberson Other Interventions: Discharge Summary Assessment (RN) Last Done: 12/06/24 11:45 Hospital Stay Data Consultations 12/03/24 16:52 ED Decision to Admit Stat 12/03/24 21:57 Consult Pulmonology Routine 12/05/24 10:03 [facility] [place] Routine Diagnostic Imagining Performed Chest X-Ray 12/03/24 15:39 Chest radiograph, one view History: Dyspnea Comparison: 10/16/2024 Findings/impression: Single AP view of the chest performed. A focal area of opacity is seen at the right upper lobe, abutting the fissure, where there is an area of opacity that was seen on 09/29/2024, and may represent residual infection, atelectasis, or possibly an area of loculated fluid within the fissure. There is also a small right basilar pleural effusion. Mild streaky right basilar opacity, favors atelectasis. No gross pulmonary edema. No pneumothorax. The cardiomediastinal silhouette is within normal limits. Electronically signed by Dominic Acevedo 12-03-2024 5:[address] 12/03/24 19:06 CT CHEST WITHOUT CONTRAST: HISTORY: TECHNIQUE: CT of the chest was obtained without intravenous contrast. Coronal and sagittal reformats were created. COMPARISON: Thoracic CT October 06, 2024. FINDINGS: LOWER NECK: Normal thyroid. LYMPH NODES: There are enlarged mediastinal and hilar lymph nodes. CARDIOVASCULAR: Cardiac size is stably and mildly enlarged. Coronary artery calcifications are noted. No aortic aneurysm. LUNGS: Since the previous thoracic CT dated October 06, 2024, diffuse right hemithoracic airspace disease/pneumonia is improving however there is residual disease in the right upper and middle lobes. Mild emphysema PLEURA: Small to moderate right pleural fluid has mildly increased. There is no pneumothorax. UPPER ABDOMEN: No acute findings. OSSEOUS STRUCTURES: There are healing of right 8th through 10th ribs with callus formation. Old left 10th rib fracture with callus. IMPRESSION: Since the previous thoracic CT dated October 06, 2024, diffuse right hemithoracic airspace disease/pneumonia has been improving however there is residual disease in the right upper and middle lobes. (Recurrent disease not excluded based on clinical context) Small to moderate right pleural fluid has mildly increased. This could represent a parapneumonic effusion. Difficult to exclude an underlying neoplastic/endobronchial lesion given the current pleural-parenchymal process. Recommended continued imaging and clinical follow-up to ensure an uneventful resolution. A follow-up thoracic CT in 4-6 weeks may be considered to reassess Electronically signed by Giuliano Cobian 12-03-2024 8:02 PM Chest X-Ray 12/04/24 21:38 Exam(s): XR CXR 1 VIEW EXAM: XR Chest, 1 View CLINICAL HISTORY: sob. TECHNIQUE: Frontal view of the chest. COMPARISON: Portable chest 10/16/2024 FINDINGS: Lungs: Similar somewhat ovoid to crescentic opacity in the right mid lung zone, similar to the previous examination. There is improvement at the right lung base with some residual right infrahilar changes noted. The left lung is well-aerated. Mild equalization of the pulmonary vasculature is suggested but is less prominent from the previous examination. Pleural space: Unremarkable. No pneumothorax. No large pleural effusion. Heart: The cardiac silhouette is stable. Mediastinum: The mediastinal contours are stable. No tracheal deviation. Bones/joints: Unremarkable. No acute fracture. IMPRESSION: Similar somewhat ovoid to crescentic opacity in the right mid lung zone, similar to the previous examination. Suspect pseudotumor fluid in the minor fissure. There is improvement at the right lung base with some residual right infrahilar changes noted. Electronically signed by: Bryan Almodovar MD 12/04/24 23:40 PM Pending Results Patient Have Any Pending Studies at Discharge: No Discharge Instructions Given to Patient (Per Discharging Provider) Jamie, You were admitted to the hospital with significant lower extremity edema and shortness of breath. Your echocardiogram (ultrasound of your heart) showed a mildly reduced systolic function with an ejection fraction of 45-50%. You are net negative approximately 14.5 L and down about 30 pounds from your diuresis during this admission. Additionally, you were found to be in atrial fibrillation with a rapid ventricular response (A-fib with RVR). This likely contributed to your heart failure exacerbation as well. Some of your medications have been increased to have better control of your heart rate. Additionally, you had an overnight sleep study that qualifies you for nighttime oxygen. Your oxygen for at home has been coordinated by your casework supervisor. Upon discharge from the hospital: * Take Lasix (diuretic) 80 mg daily. * Take potassium chloride supplement 20 mg twice daily. This is important to keep your potassium level within her normal range while taking diuretics. * Follow a low-sodium diet (less than 2 g of sodium daily) and try to restrict her fluid intake to 1800 mL daily. I have attached some handouts to your discharge packet further explaining heart failure and dietary changes. * Your diltiazem was increased to 360 mg dailycontinue this dose. * Your metoprolol was increased to 150 mg in the morning and 100 mg at bedtimecontinue this dose. * You were started on vitamin B12 supplementationcontinue this once daily. * Follow-up with cardiology and pulmonology outpatient as already scheduled. * Follow-up with your PCP as already scheduled. * A referral has been made for you to follow-up with the heart failure clinic outpatient. * Please follow the additional instructions for heart failure management listed below. Call 911 and go to the Emergency Room if: * You have tightness or pain in your chest that does not go away with rest or Nitroglycerin * You are very short of breath even with rest Call your doctor if any of the following symptoms or problems start or get worse: * Shortness of breath or difficulty breathing * Wake up at night short of breath * Chest pain * Cough * Swelling of your hands, fee, or legs * More fatigued or tired with your normal activity * Palpitations - sudden fast heart beats WEIGHT * Weigh yourself every morning after using the bathroom. * Use the same scale. * Wear the same amount of clothing. * Write your weight down on your chart. * Call your doctor if you gain more than 2-3 pounds in 1-2 days. MEDICATIONS * Use this discharge instruction sheet for instructions. * Take your medications at the time your doctor ordered. * Do not skip a dose of your medicines. * If you miss a dose of medicine, take as soon as possible, but DO NOT DOUBLE A DOSE. * Read your medicine information when you get home. * Know all of the side effects of your medicine. * Call your doctor's office if you have any side effects. * Be sure all of your doctors know what medicine and herbs you take (including cold, flu, and herbal medicine). * Pain Medicine: If you do not get relief from your pain, please call your doctor for help. Take the following with you to your follow-up doctor appointments: * Weight Chart * Medication List * List of questions Do not drink excessive alcohol, beer or wine. Supervising Physician Co-Signing Physician Notes HUNG Supervision Note: I did not personally see or examine the patient today, but I verified all escobar points of HUNG Calvo's assessment and plan with the following exceptions/additions: None Total Time Total Time Spent Total Time Spent (In Minutes): Greater than 30 minutes spent completing this discharge process including direct patient care, medication reconciliation, documentation, review of labs and images, and coordination of care. Coding Level of Care Code 88584 INP/OBS DISCH >30 MIN Diagnoses Heart failure with mildly reduced ejection fraction (HFmrEF) I50.20 Acute dyspnea R06.00 Bilateral leg edema R60.0 Atrial fibrillation I48.91 COPD (chronic obstructive pulmonary disease) with emphysema J43.9"
--- NOTE | 2024-12-07 06:54 | Electrocardiogram Report ---
Test Reason : Blood Pressure : */* mmHG Vent. Rate : 117 BPM Atrial Rate : * BPM P-R Int : * ms QRS Dur : 80 ms QT Int : 286 ms P-R-T Axes : * 53 52 degrees QTcB Int : 398 ms Atrial fibrillation with rapid ventricular response Low voltage QRS Cannot rule out Anterior infarct , age undetermined Abnormal ECG When compared with ECG of 08-Oct-2024 13:32, Nonspecific T wave abnormality no longer evident in Lateral leads Confirmed by Jose Antonio Marquez ([id number]) on 12/07/2024 6:54:42 AM Referred By: REFERRED SELF Confirmed By: Jose Antonio Marquez
== END 2024-12-06 12:42 | disposition home or self-care (01) | DRG 291 ==
LOC: SUATTDRO → ED 15:31 → 2W 18:29